=== PATIENT | female | born 1940 | race Caucasian/White ===

== ENCOUNTER 2017-07-18 05:42 | Inpatient (IN) | payer MEDICARE, OTHER ==
[~2017-07-18] VITALS: Ht 160 cm; Wt 83.0 kg
[~2017-07-18 05:42] MED LIST: ACTO150T PO; ADV250INH INH; AGGR1CAP PO; ALBU0.5N INH; ALBU17IN INH; ALBU83IN INH; ASPI81TA7 PO; ASPI81TA85 PO; CALTTAB6 PO; CLOP75TA2 PO; EFFE150C PO; FLON0.054; FLON1SPR; FLUT50SP; LISI-542 PO; LISI5TAB PO; NATU99.0 OU; PRED10TA PO; PRED10TA2 PO; SIMV10TA2 PO; SIMV40TA2 PO; SING10TA32 PO; SING4GRA PO; SPIR1CAP INH; SYMB16INH INH; VENL37TA PO; effexor; effexor XR PO; tiotropium INH
[2017-07-18] MEDS ORDERED: NS 500 ML IV ONE (07:00)
[2017-07-18] MEDS ORDERED: MORPHINE 4 MG/ML 1ML SYRINGE IV ONE (07:00)
[2017-07-18] MEDS ORDERED: dexameTHASONE 20 MG/5 ML VIAL (J1100) IV ONE (07:00)
[2017-07-18] MEDS ORDERED: GASTROGRAFIN SOLUTION 30ML PO ONE (07:15)
[2017-07-18 07:29] LABS: BASO % 0.3 % (0.0-1.0); EOS # 0.2 K/mm3 (0.0-0.50); LARGE UNSTAINED CELL # 0.2 K/mm3 (0.0-0.4); LARGE UNSTAINED CELL % 1.9 % (0.0-4.0); LYMPH # 1.3 K/mm3 (1.5-4.5); MEAN CORPUSCULAR HEMOGLOBIN 31.9 pg (27.0-33.0); MEAN CORPUSCULAR HGB CONC 32.9 g/dl (32.0-36.5); MEAN CORPUSCULAR VOLUME 96.8 fl (80.0-96.0); MONO # 0.9 K/mm3 (0.0-0.8); MONO % 7.1 % (0.0-5.0); NEUTROPHILS # 9.5 K/mm3 (1.8-7.7); NEUTROPHILS % 79.7 % (36.0-66.0); PLATELET COUNT, AUTOMATED 225 k/mm3 (150-450); RED CELL DISTRIBUTION WIDTH 13.1 % (11.5-14.5); WHITE BLOOD COUNT 11.9 K/mm3 (4.0-10.0)
[2017-07-18] MEDS ORDERED: GASTROGRAFIN SOLUTION 30ML (Q9963) PO ONE (07:45)
[2017-07-18] MEDS ORDERED: ONDANSETRON 4MG/2ML VIAL (J2405) IV ONE (07:45)
[2017-07-18 07:55] LABS: ALBUMIN 3.4 GM/DL (3.2-5.2); ALBUMIN/GLOBULIN RATIO 1.06 (1.00-1.93); BILIRUBIN,DIRECT 0.1 MG/DL (0.0-0.2); BILIRUBIN,TOTAL 0.4 MG/DL (0.2-1.0); CREATININE FOR GFR 0.99 MG/DL (0.55-1.02); GLOMERULAR FILTRATION RATE 58.2 (>39); POTASSIUM SERUM 3.9 MEQ/L (3.5-5.1); TOTAL PROTEIN 6.6 GM/DL (6.4-8.2)
[2017-07-18] MEDS: POLYVINYL ALCOHOL OPHTH SOLN 15 ML(LIQUITEARS) OU SCH (09:00)
[2017-07-18] MEDS ORDERED: predniSONE 10 MG TAB PO SCH (09:00)
[2017-07-18] MEDS: DIPYRIDAMOLE/ASA (AGGRENOX) 200MG/25MG CAPCR PO SCH ×2 (09:00→21:24)
[2017-07-18] MEDS: SYMBICORT 160/4.5MCG INHALER 6GM INH SCH ×2 (09:00→19:53)
[2017-07-18] MEDS: FLUTICASONE PROP 0.05% NASAL SPRAY 16 GM (FLONASE) SCH (09:00)
--- NOTE | 2017-07-18 09:54 | REP ---
CT ABDOMEN AND PELVIS WITH IV AND ORAL CONTRAST: HISTORY: Left lower quadrant pain. CT CONTRAST DOSE: 100 mL of Isovue 370 is administered intravenously. Comparison CT chest study is reviewed from May 17, 2007. CT FINDINGS: Digital scot radiograph demonstrates several lumbar vertebroplasty levels and a normal bowel gas pattern. The lung bases show emphysematous changes but are otherwise clear. No pleural effusion is seen. No adrenal lesion is observed on either side. There is a 2.3 cm hypodense lesion in the left lobe of the liver consistent with a hemangioma which is felt to be unchanged from the April 2007 prior study. There is a 1.2 cm low density area in the right lobe also unchanged from 2007. No other focal liver lesion is seen. The gallbladder is unremarkable by CT. No pancreatic abnormality is observed. Normal caliber aorta is seen with vascular calcification. There are three small cysts in the right kidney. In the lower pole left kidney, there is a peripheral 9.3 cm simple cyst. There is mild left-sided hydronephrosis and there is contrast enhancement and thickening of the urothelial [place] of the renal pelvis on the left side. Perinephric stranding and edema are seen. These findings suggest pyelonephritis. No renal or ureteral stone is appreciated. The patient is status post hysterectomy. Small and large intestinal bowel loops are unremarkable in the abdomen and pelvis. No mass or adenopathy is appreciated. IMPRESSION: 1. 9.3 cm cyst lower pole left kidney. 2. Perinephric edema, left-sided hydronephrosis, and contrast enhancement in the urothelial lining of the left renal pelvis and left ureter consistent with pyelonephritis. No stone or mass lesion is identified. 3. Stable cysts and small hemangioma left lobe of the liver. Signed by Altaf Colvin MD 07/18/2017 12:13 P
[2017-07-18] MEDS ORDERED: CIPROFLOXACIN 400 MG in APPROPRIATE DILUENT 1 EA IV ONE (10:00)
[2017-07-18] MEDS ORDERED: MAGN1TAB25 PO (10:32)
[2017-07-18] MEDS ORDERED: METF500T13 PO (10:32)
[2017-07-18] MEDS ORDERED: ATOR40TA75 PO (10:32)
[2017-07-18] MEDS ORDERED: ACETAMINOPHEN TAB 650MG DOSE (2X325MG) PO PRN (11:30)
[2017-07-18] MEDS ORDERED: PERCOCET 5MG/325MG TAB PO PRN (11:30)
[2017-07-18 12:55] VITALS: BP 142/82
[2017-07-18] MEDS: ALBUTEROL SULFATE 2.5 MG/0.5 ML INH NEB SOLN NEB PRN ×3 (13:36→22:11)
[2017-07-18] MEDS: HEPARIN SOD (PORCINE) 5000 UNITS/ML VIAL SC SCH ×2 (14:13→21:22)
[2017-07-18] MEDS: VENLAFAXINE **XR** 75MG CAPSULE PO SCH (14:13)
[2017-07-18] MEDS ORDERED: GLUCOSE 4 GM CHEW TABLET PO PRN (14:30)
[2017-07-18] MEDS ORDERED: DEXTROSE 50% 50 ML SYRINGE IV PRN (14:30)
[2017-07-18] MEDS ORDERED: GLUCAGON FOR INJ 1 MG VIAL (J1610) SC PRN (14:30)
--- NOTE | 2017-07-18 15:03 | HPE ---
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 The patient stated that since 07/14/2017 that she does not feel well. Starting on 07/16/2017 the patient started to have persistent left flank pain that radiated to the left lower abdomen. When the pain started, the patient was just resting. The patient also started to complain about discomfort in the pelvic region. The patient also noted to have increased urgency and subjective fever since 07/16/2017. Denies any other associated symptoms. The patient does have a history of urinary tract infection (UTI) but that was many years ago. The patient has a history of COPD. She has been using 3 to 4 liters of oxygen at home. ALLERGIES: CLARITHROMYCIN, PENICILLIN, PSEUDOEPHEDRINE, CLAVULANIC ACID. PAST MEDICAL HISTORY: 1. CVA in 2012 without any residual. 2. COPD on home oxygen. 3. Type 2 diabetes. 4. Depression. 5. Hypertension. 6. Left ear deafness. PAST SURGICAL HISTORY: Kyphoplasty for compression fracture at L2 and L4. SOCIAL HISTORY: The patient smoked more than 40 years, quit in 2009. No alcohol use. No recreational drug use. The patient is a DO NOT RESUSCITATE, DO NOT INTUBATE. Medical Orders for Life Sustaining Treatment (MOLST) form is updated. REVIEW OF SYSTEMS: GENERAL: Subjective fever since 07/16/2017. No chills. HEENT: No vision changes. No auditory changes. CARDIOVASCULAR: No chest pain. No palpitations. RESPIRATORY: The patient has increased shortness of breath that she feels it is harder to breathe. Oxygen saturation has been maintained at her regular oxygen requirements. No increased cough and no increased sputum production. GASTROINTESTINAL: No nausea. No vomiting. No abdominal pain. No diarrhea. NEUROLOGIC: No numbness or tingling. MUSCULOSKELETAL: No lower extremity swelling. Denies any muscle or joint pain. The patient does have a history of compression fracture at L2 and L4, status post surgical repair. OBJECTIVE: VITAL SIGNS: Temperature is 96.8, pulse is 78, respiratory rate 22, blood pressure 131/62, pulse oximetry is 97% with 3.5 liter nasal cannula. GENERAL: Fatigued. No significant distress. Alert and oriented times three. HEENT: Normocephalic, atraumatic. Extraocular motions are grossly intact. CARDIOVASCULAR: Positive systolic murmur best heard at the sternal border. Positive S1, S2. Regular rate. LUNGS: Diminished breath sounds, though I cannot appreciate any significant wheezes or rhonchi. GASTROINTESTINAL: No abdominal pain. Bowel sounds present. Abdomen is soft. Hernia is palpated. MUSCULOSKELETAL: No lower extremity swelling. No sign of cyanosis. NEUROLOGIC: Sensation to fine touch is grossly intact. Muscle strength if 5/5. LABORATORY DATA: WBC 11.9, hemoglobin 13.4, hematocrit 40.7, platelet count is 225. Sodium is 146, potassium 3.9, chloride 106, carbon dioxide 31, BUN 24, creatinine 0.9, GFR is 58.2, fasting glucose 154, calcium 9, total bilirubin 0.4, direct bilirubin 0.1, AST 17, ALT is 22, alkaline phosphatase is 59, total protein is 6.6, albumin 3.4, amylase 34, lipase 90. Microbiology: Blood cultures pending. Urine culture pending. Methicillin resistant Staphylococcus aureus (MRSA) screen is pending. IMAGING STUDIES: CT of the abdomen and pelvis with IV and oral contrast showed 9.3 cm cyst in the lower pole of the left kidney, perinephritic edema and left sided hydronephrosis. Findings are suggestive of pyelonephritis. No stone or mass lesion identified. There is a small cyst and a small hemangioma of the left lobe of the liver. ASSESSMENT AND PLAN: 1. Pyelonephritis. The patient was admitted to the medical/surgical floor on inpatient status. Empirically, the patient was started on ciprofloxacin. We will follow with urine cultures. Currently, the patient is hemodynamically stable. 2. Chronic obstructive pulmonary disease (COPD). At baseline, the patient is using 3 to 4 liters nasal cannula. We will maintain oxygen saturation between 88 to 92% with nasal cannula. The patient will have nebulizer treatment as needed. Continue with home COPD medications. 3. History of CVA in 2012. No residual. The patient is on Lipitor. 4. Depression. On Effexor. 5. Hypertension. Currently, blood pressure is in the satisfactory range. At home, the patient is not taking any blood pressure medications. 6. Type 2 diabetes. On sliding scale. The patient will be on consistent carbohydrate diet and also 2 gram low salt diet. 7. Deep vein thrombosis (DVT) prophylaxis. The patient is on IV heparin.
[2017-07-18] MEDS: TIOTROPIUM INHALER/CAPSULE (SPIRIVA) INH SCH (15:56)
[2017-07-18] MEDS: HumaLOG INSULIN (NovoLOG) PER UNIT SC SCH ×2 (17:19→21:22)
[2017-07-18] MEDS: ATORVASTATIN 20 MG TAB PO SCH (21:24)
[2017-07-18] MEDS: MONTELUKAST 10 MG TAB PO SCH (21:24)
[2017-07-18] MEDS: MAGNESIUM OXIDE 400 MG TAB (MAG-OX) PO SCH (21:24)
[2017-07-18] MEDS: CIPROFLOXACIN 400 MG in APPROPRIATE DILUENT 1 EA IV SCH (21:24)
[2017-07-18 22:00] VITALS: BP 132/74
[2017-07-19 05:54] LABS: MEAN CORPUSCULAR HEMOGLOBIN 30.9 pg (27.0-33.0); MEAN CORPUSCULAR HGB CONC 32.7 g/dl (32.0-36.5); MEAN CORPUSCULAR VOLUME 94.5 fl (80.0-96.0); WHITE BLOOD COUNT 12.9 K/mm3 (4.0-10.0)
[2017-07-19 06:00] VITALS: BP 139/68
[2017-07-19 06:03] LABS: CALCIUM LEVEL 8.5 MG/DL (8.8-10.2); CREATININE FOR GFR 1.03 MG/DL (0.55-1.02); GLOMERULAR FILTRATION RATE 55.6 (>39); MAGNESIUM LEVEL 2.5 MG/DL (1.8-2.4)
[2017-07-19] MEDS: HEPARIN SOD (PORCINE) 5000 UNITS/ML VIAL SC SCH ×3 (06:10→21:03)
[2017-07-19] MEDS: SYMBICORT 160/4.5MCG INHALER 6GM INH SCH ×2 (07:34→21:32)
[2017-07-19] MEDS: ALBUTEROL SULFATE 2.5 MG/0.5 ML INH NEB SOLN NEB PRN ×4 (07:39→21:41)
[2017-07-19] MEDS: TIOTROPIUM INHALER/CAPSULE (SPIRIVA) INH SCH (07:39)
[2017-07-19] MEDS: FLUTICASONE PROP 0.05% NASAL SPRAY 16 GM (FLONASE) SCH (09:26)
[2017-07-19] MEDS: DIPYRIDAMOLE/ASA (AGGRENOX) 200MG/25MG CAPCR PO SCH ×2 (09:26→21:03)
[2017-07-19] MEDS: predniSONE 10 MG TAB PO SCH (09:27)
[2017-07-19] MEDS: VENLAFAXINE **XR** 75MG CAPSULE PO SCH (09:27)
[2017-07-19] MEDS: POLYVINYL ALCOHOL OPHTH SOLN 15 ML(LIQUITEARS) OU SCH (09:27)
[2017-07-19] MEDS: CIPROFLOXACIN 400 MG in APPROPRIATE DILUENT 1 EA IV SCH ×2 (09:27→21:03)
[2017-07-19] MEDS: HumaLOG INSULIN (NovoLOG) PER UNIT SC SCH ×4 (09:28→20:45)
--- NOTE | 2017-07-19 13:53 | IPN ---
DATE: 07/19/2017 SUBJECTIVE: The patient is sen and examined in the room today. The patient stated that her lower abdominal discomfort showed improvement, her left flank pain also showed some improvement. Her chronic obstructive pulmonary disease (COPD) is in control, no exacerbations. Maintained on her home baseline oxygen requirement. OBJECTIVE: VITAL SIGNS: Temperature is 97.7, pulse is 69, respirations 17, blood pressure 139/68, pulse oximetry 95% on 3 liters nasal cannula. GENERAL: No sign of acute distress. Alert and oriented times three. HEENT: Normocephalic, atraumatic. Extraocular muscles grossly intact. CARDIOVASCULAR: Positive S1, S2. Regular rate. LUNGS: Decreased breath sounds. No significant wheezes or rhonchi. GASTROINTESTINAL: No abdominal pain. Bowel sounds present. Abdomen is soft. Hernia is palpated. MUSCULOSKELETAL: No lower extremity edema. No sign of cyanosis. LABORATORY DATA: WBC is 12.9, hemoglobin 11.8, hematocrit 36.1, platelet count 249. Sodium is 144, potassium 4, chloride is 104, carbon dioxide is 31, BUN 31, creatinine 1.03, GFR is 55.6, fasting glucose is 145, calcium is 8.5, magnesium 2.5. ASSESSMENT AND PLAN: 1. Pyelonephritis. Urine culture is pending. Empirically, the patient is started on ciprofloxacin. Clinically, she has shown improvement. At this moment, the patient is hemodynamically stable. 2. Chronic obstructive pulmonary disease (COPD). At baseline, the patient is using 3 to 4 liters nasal cannula. The patient does not have acute exacerbation. We will maintain oxygen saturation between 88 to 92%. Nebulizers as needed. Continue home COPD medications. The patient is on chronic prednisone. 3. History of CVA in 2012, no residual. On Lipitor. 4. Depression. On Effexor. 5. Hypertension. Blood pressure is in satisfactory range. Even at home the patient has not been taking blood pressure medications. 6. Deep vein thrombosis (DVT) prophylaxis. On heparin.
[2017-07-19 14:00] VITALS: BP 95/51
[2017-07-19] MEDS: MONTELUKAST 10 MG TAB PO SCH (21:03)
[2017-07-19] MEDS: MAGNESIUM OXIDE 400 MG TAB (MAG-OX) PO SCH (21:03)
[2017-07-19] MEDS: ATORVASTATIN 20 MG TAB PO SCH (21:03)
[2017-07-19 22:00] VITALS: BP 137/61
[2017-07-20] MEDS: HEPARIN SOD (PORCINE) 5000 UNITS/ML VIAL SC SCH (05:32)
[2017-07-20 06:00] VITALS: BP 123/56
[2017-07-20 06:00] LABS: MEAN CORPUSCULAR HEMOGLOBIN 31.4 pg (27.0-33.0); MEAN CORPUSCULAR HGB CONC 32.8 g/dl (32.0-36.5); MEAN CORPUSCULAR VOLUME 95.7 fl (80.0-96.0); RED CELL DISTRIBUTION WIDTH 12.8 % (11.5-14.5); WHITE BLOOD COUNT 9.6 K/mm3 (4.0-10.0)
[2017-07-20 06:20] LABS: CALCIUM LEVEL 8.3 MG/DL (8.8-10.2); CREATININE FOR GFR 1.04 MG/DL (0.55-1.02)
[2017-07-20] MEDS: SYMBICORT 160/4.5MCG INHALER 6GM INH SCH (07:16)
[2017-07-20] MEDS: TIOTROPIUM INHALER/CAPSULE (SPIRIVA) INH SCH (07:16)
[2017-07-20] MEDS: ALBUTEROL SULFATE 2.5 MG/0.5 ML INH NEB SOLN NEB PRN (07:17)
[2017-07-20] MEDS ORDERED: CIPR-249 PO (08:46)
[2017-07-20] MEDS: VENLAFAXINE **XR** 75MG CAPSULE PO SCH (09:36)
[2017-07-20] MEDS: DIPYRIDAMOLE/ASA (AGGRENOX) 200MG/25MG CAPCR PO SCH (09:36)
[2017-07-20] MEDS: predniSONE 10 MG TAB PO SCH (09:36)
[2017-07-20] MEDS: FLUTICASONE PROP 0.05% NASAL SPRAY 16 GM (FLONASE) SCH (09:37)
[2017-07-20] MEDS: POLYVINYL ALCOHOL OPHTH SOLN 15 ML(LIQUITEARS) OU SCH (09:37)
[2017-07-20] MEDS: CIPROFLOXACIN 400 MG in APPROPRIATE DILUENT 1 EA IV SCH (09:38)
[2017-07-20] MEDS: HumaLOG INSULIN (NovoLOG) PER UNIT SC SCH ×2 (09:52→12:00)
--- NOTE | 2017-07-20 15:14 | DSES ---
DATE OF ADMISSION: 07/18/2017 DATE OF DISCHARGE: 07/20/2017 CONSULTANTS: None. PROCEDURES: None. DISCHARGE DIAGNOSES: 1. Pyelonephritis. 2. Chronic obstructive pulmonary disease (COPD) on home oxygen. 3. History of CVA in 2012 without residual. 4. Depression. 5. Hypertension. HOSPITALIZATION COURSE: The patient is a 77-year-old female who presented to [facility] on 07/18/2017 with significant left flank pain and bilateral lower abdominal discomfort. Imaging studies were preformed and culture was obtained and the patient was found to have pyelonephritis. The was started on empiric antibiotics while waiting the culture results. With antibiotic treatment, the patient's left flank pain and bilateral lower abdominal pain continued to improve and later the culture came back positive for Escherichia (E) coli , which is sensitive to ciprofloxacin and on 07/20/2017 the patient has had almost complete resolution of the symptoms and the patient was determined medically stable for discharge with recommendations to finish a course of antibiotics for her pyelonephritis. The patient was recommended to followup with Dr. Joyce in 1 to 2 weeks. VITAL SIGNS: At the time of discharge, temperature is 96.2, pulse 52, respirations 17, blood pressure is 123/56, pulse oximetry is 93% with 3 liters nasal cannula. LABORATORY DATA: WBC is 9.6, hemoglobin 11.7, hematocrit 35.8, platelet count is 252. Sodium is 142, potassium 4.0, chloride is 104, carbon dioxide 37, BUN is 27, creatinine is 1.04, GFR is 55, fasting glucose 122, calcium is 8.3. Microbiology: Blood culture is negative after 48 hours times two sets. Urine culture positive for E coli. Methicillin resistant Staphylococcus aureus (MRSA) screening is negative. IMAGING STUDIES: CT of the abdomen with IV and oral contrast showed 9.3 cm simple cyst in the left kidney, lower pole. Perinephric edema, left sided hydronephrosis, and contrast enhancement of the urothelial lining of the left renal pelvis and the left ureter consistent with pyelonephritis. No stone or mass lesion is identified. Stable cyst and small hemangioma of the left lobe of the liver. DISCHARGE MEDICATIONS: - ciprofloxacin 500 mg by mouth twice a day for 5 more days - Actonel 150 mg by mouth monthly - albuterol 2.5 mg inhalation every 4 hours as needed for shortness of breath - atorvastatin 40 mg by mouth at night - Symbicort 116/4.5 two puff inhalation twice a day - Aggrenox one tablet by mouth twice a day - Flonase two sprays nasally daily - magnesium oxide 400 mg by mouth at night - metformin 500 mg by mouth daily - Singulair 10 mg by mouth at night - prednisone 10 mg by mouth daily - Spiriva 18 mcg inhalation daily - Effexor 150 mg by mouth daily DISCHARGE INSTRUCTIONS: Discontinue line. Discharge home. Activity as tolerated. Consistent carbohydrate diet as tolerated. The patient should followup with primary care provider, Dr. Joyce, in 1 to 2 weeks. The patient is to continue to finish the course of ciprofloxacin for pyelonephritis. Discharge time: Greater than 30 minutes. Discharge condition: Stable.
== END 2017-07-20 12:40 | disposition home or self-care (01) | DRG 690 ==
LOC: M ED 05:42 → M ED INP 11:24 → M MSPAV 13:21
PROVIDERS: ADMIT Internal Medicine; ATTEND Internal Medicine
DX: N12 Tubulo-interstitial nephritis, not specified as acute or chronic (principal); J44.9 Chronic obstructive pulmonary disease, unspecified; F32.9 Major depressive disorder, single episode, unspecified; Z66 Do not resuscitate; H91.92 Unspecified hearing loss, left ear; E11.9 Type 2 diabetes mellitus without complications; I10 Essential (primary) hypertension; B96.20 Unspecified Escherichia coli [E. coli] as the cause of diseases classified elsewhere; Z79.84 Long term (current) use of oral hypoglycemic drugs; Z79.52 Long term (current) use of systemic steroids; Z79.899 Other long term (current) drug therapy; Z88.0 Allergy status to penicillin; Z88.1 Allergy status to other antibiotic agents; Z88.8 Allergy status to other drugs, medicaments and biological substances; Z99.81 Dependence on supplemental oxygen; Z86.73 Personal history of transient ischemic attack (TIA), and cerebral infarction without residual deficits; Z87.891 Personal history of nicotine dependence

== ENCOUNTER 2017-08-22 13:56 | Inpatient (IN) | payer MEDICARE, OTHER ==
[~2017-08-22] VITALS: Ht 160 cm; Wt 84.2 kg
[~2017-08-22 13:56] MED LIST changes: +ATOR40TA75 PO; +CIPR-249 PO; +MAGN1TAB25 PO; +METF500T13 PO
[2017-08-22] MEDS ORDERED: methylPREDNISolone INJ 125 MG/2 ML VIAL (J2930) IV ONE (14:30)
[2017-08-22] MEDS ORDERED: IPRATROPIUM 0.5MG/ALBUTEROL 2.5MG INH SOL UD 3ML (DUONEB)(J7620) NEB PRN (14:30)
[2017-08-22 14:43] LABS: BASO # 0.1 10^3/uL (0.0-0.2); BASO % 0.2 % (0.0-1.0); EOS % 0.2 % (0.0-3.0); IMMATURE GRANULOCYTE % 0.5 % (0-0); LYMPH # 0.7 10^3/uL (1.5-4.5); LYMPH % 2.9 % (24.0-44.0); MEAN CORPUSCULAR HEMOGLOBIN 30.8 pg (27.0-33.0); MEAN CORPUSCULAR HGB CONC 31.5 g/dl (32.0-36.5); MEAN CORPUSCULAR VOLUME 97.6 fl (80.0-96.0); MONO % 7.2 % (0.0-5.0); NEUTROPHILS # 21.5 10^3/uL (1.8-7.7); PLATELET COUNT, AUTOMATED 256 10^3/uL (150-450); RED CELL DISTRIBUTION WIDTH 13.2 % (11.5-14.5); WHITE BLOOD COUNT 24.1 10^3/uL (4.0-10.0)
[2017-08-22] MEDS ORDERED: ALBUTEROL SULFATE 2.5 MG/0.5 ML INH NEB SOLN As Ordered ONE (14:44)
[2017-08-22] MEDS: ALBUTEROL SULFATE 2.5 MG/0.5 ML INH NEB SOLN INH SCH ×3 (14:47→15:15)
[2017-08-22 14:54] LABS: ABG BASE EXCESS 3.7 (-2.0-2.0); ABG HCO3 29.3 MEQ/L (22.0-26.0); ABG PARTIAL PRESSURE CO2 48.1 mmHg (35.0-45.0); ABG PARTIAL PRESSURE O2 110.9 mmHg (75.0-100.0); ABG STANDARD HCO3 27.8 MEQ/L (22.0-26.0); ABG TOTAL CO2 30.7 MEQ/L (23.0-31.0); ABG pH (ARTERIAL) 7.402 UNITS (7.350-7.450)
[2017-08-22 15:18] LABS: ADD MORPHOLOGY? NO; ANION GAP 9 MEQ/L (8-16); BLOOD UREA NITROGEN 25 MG/DL (7-18); CALCIUM LEVEL 8.8 MG/DL (8.8-10.2); CARBON DIOXIDE LEVEL 29 MEQ/L (21-32); CHLORIDE LEVEL 100 MEQ/L (98-107); CREATININE FOR GFR 0.95 MG/DL (0.55-1.02); GLOMERULAR FILTRATION RATE > 60.0 (>39); GLUCOSE, FASTING 229 MG/DL (83-110); MONO # 1.8 10^3/uL (0.0-0.8); SODIUM LEVEL 138 MEQ/L (136-145)
[2017-08-22 15:25] LABS: POTASSIUM SERUM 4.3 MEQ/L (3.5-5.1)
--- NOTE | 2017-08-22 16:03 | REP ---
Portable chest, 02:41 p.m., single AP view, patient sitting: Comparisons are 01/14/2013 and 01/16/2015. The patients breast superimposes the lower lung zones artifactually increasing radiodensity. This is similar to prior studies. No focal infiltrates or effusions are identified. Cardiac size is upper normal. There is an old left eighth rib fracture. Impression: No acute cardiopulmonary findings. Signed by Vernon Bridges MD 08/22/2017 03:55 P
[2017-08-22] MEDS ORDERED: NS 2,450 ML in APPROPRIATE DILUENT 1 EA IV ONE (16:30)
[2017-08-22] MEDS ORDERED: LevoFLOXacin IV 750 MG in APPROPRIATE DILUENT 1 EA IV ONE (16:30)
[2017-08-22] MEDS ORDERED: REFR0.5D8 OU (17:01)
[2017-08-22 17:24] LABS: INR 1.01
[2017-08-22 17:28] LABS: ALBUMIN 3.8 GM/DL (3.2-5.2); ALBUMIN/GLOBULIN RATIO 1.31 (1.00-1.93); BILIRUBIN,DIRECT 0.2 MG/DL (0.0-0.2); BILIRUBIN,TOTAL 0.6 MG/DL (0.2-1.0); TOTAL PROTEIN 6.7 GM/DL (6.4-8.2)
[2017-08-22] MEDS ORDERED: ALBUTEROL 90 MCG/ACT 8GM HFA INHALER INH PRN (17:30)
[2017-08-22] MEDS ORDERED: DEXTROSE 50% 50 ML SYRINGE IV PRN (17:30)
[2017-08-22] MEDS ORDERED: GLUCAGON FOR INJ 1 MG VIAL (J1610) SC PRN (17:30)
[2017-08-22] MEDS ORDERED: GLUCOSE 4 GM CHEW TABLET PO PRN (17:30)
[2017-08-22] MEDS: HumaLOG INSULIN (NovoLOG) PER UNIT SC SCH ×2 (17:30→21:00)
[2017-08-22 21:30] VITALS: BP 142/86
--- NOTE | 2017-08-22 21:42 | HPE ---
DATE OF ADMISSION: 08/22/2017 PRIMARY CARE PHYSICIAN: Dr. Bryce Joyce CARBONATION TESTER: Dr. Davidson CHIEF COMPLAINT: Shortness of breath. HISTORY OF PRESENT ILLNESS: The patient is a 77-year-old female with fairly advanced chronic obstructive pulmonary disease (COPD), on chronic 3.5 liters of oxygen and 10 mg of prednisone daily who has frequent admissions for decompensated COPD, presents for shortness of breath, progressively worsening cough without changes, be in quality of quantity. She has positive sick contacts, her grand-daughter who is in college and recently has been sick with a upper respiratory infection (URI) and since then had it at home for the last several days. Patient has noted worsening in her own respiratory status, not improved by her breathing treatments at home, which prompted her to present to the emergency room. At the present time she tells me after using steroids and nebulizer treatment she is feeling much better, however, not back to normal. She denies chest pain, lightheadedness, dizziness, nausea, vomiting, fevers, or chills. PAST MEDICAL HISTORY: 1. Cerebrovascular accident (CVA) in 2012. 2. Fairly advanced COPD. 3. Type 2 diabetes. 4. Depression. 5. Hypertension. 6. Osteoporosis. ALLERGIES: PENICILLIN, PSEUDOEPHEDRINE, IPRATROPIUM, difficulty breathing, chocolate, CLAVULANIC ACID, CLARITHROMYCIN. SURGICAL HISTORY: Kyphoplasty for compression fracture, L2-L4. SOCIAL HISTORY: She lives with her and two grandchildren, a grandson and grand-daughter, who are adults. She has a previous 40 pack-year history but has not smokes since 2009. She denies any alcohol. She is a DO NOT RESUSCITATE, DO NOT INTUBATE. Will bring the paperwork in tomorrow. FAMILY HISTORY: Noncontributory. REVIEW OF SYSTEMS: Negative other than in history of present illness (HPI). HOME MEDICATIONS: - metformin 500 mg daily - prednisone 10 mg daily - Actonel 150 mg every month - Refresh tears one drop both eyes as needed dry eyes - albuterol sulfate 2.5 mg nebulized every 4 hours as needed for shortness of breath - Ventolin HFA two puffs every 4 hours as needed for shortness of breath - atorvastatin 40 mg at bedtime - Symbicort 160/4.5 two puffs inhaled twice a day - Aggrenox 25/200 one capsule by mouth twice a day - Flonase 50 mcg two sprays nasally - Singulair 10 mg at bedtime - Spiriva HandiHaler 18 mcg inhaled daily - venlafaxine extended release 150 mg daily OBJECTIVE: VITAL SIGNS: Temperature 98.4, pulse 103, respiratory rate 24, blood pressure (BP) 143/69, oxygen saturation 100% on 3.5 liters. GENERAL: She is a morbidly obese, elderly female, lying in a stretcher at a 30-degree angle. She does not appear to be in any acute distress. She does have some crutches. She has mild respiratory distress. HEENT: Cranial nerves II-XII are grossly intact. She has pursed lips. She has moist mucous membranes. No elevation in central venous pressure (CVP). CARDIOVASCULAR: S1, S2, regular rate and rhythm. She does not appear tachycardic on my exam. RESPIRATORY: Diminished breath sounds throughout. No appreciated expiratory wheezes. ABDOMEN: Obese. EXTREMITIES: No clubbing, cyanosis, or edema. LABORATORY STUDIES: WBC 24.1, hemoglobin 12.8, platelet count 256. Chemistry panel: Sodium 138, potassium 4.3, chloride 100, bicarbonate 29, BUN 25, creatinine 0.9, lactic acid 4.1. Fasting glucose of 229. One set of cardiac enzymes is negative. Pro-BMP is within normal limits as is TSH. Her arterial blood gas shows a pH of 7.4, pCO2 of 48.1, and pO2 of 110.9. INR 1.0. Blood cultures were drawn and are pending. IMAGING: She had a chest x-ray completed that revealed no acute cardiopulmonary findings. ASSESSMENT AND PLAN: This is a 77-year-old female presenting with shortness of breath. 1. Shortness of breath, possibly related to decompensated chronic obstructive pulmonary disease (COPD) versus bronchitis versus viral upper respiratory infection (URI). Fro the time being we will place her on intravenous (IV) Solu-Medrol. Continue with the nebulizer treatments. She had been started on levothyroxine in the emergency room as she was tachycardic and had a significant leukocytosis. We will continue this for now. Will check sputum cultures; however, if cultures remain negative, could likely discontinue antibiotics or if polymerase chain reaction (PCR) returns positive, could likely discontinue antibacterials. My suspicion for bacterial infection is much lower. At the present time she is saturating 100% on her home oxygen. I suspect that she is chronically receiving more oxygen than she needs. Would recommend titrating down for oxygen saturations of 88-92 and include taper prednisone back to her home standing dose of 10 mg with close followup with her business services tech. 2. Type 2 diabetes. Will hold her metformin and place her on sliding-scale insulin. 3. Cerebrovascular accident (CVA). Continue with Aggrenox and Lipitor. 4. Mood disorder. Continue with Effexor. 5. Seasonal allergies. Continue with Singulair. 6. Deep vein thrombosis (DVT) prophylaxis. Heparin. DISPOSITION: The patient is admitted to the medical/surgical service to Dr. Lancaster's service, who will continue following the patient at 7 a.m. She is a DO NOT RESUSCITATE/DO NOT INTUBATE, and she will bring the paperwork in from home.
[2017-08-22] MEDS: MONTELUKAST 10 MG TAB PO SCH (22:53)
[2017-08-22] MEDS: methylPREDNISolone INJ 125 MG/2 ML VIAL (J2930) IV SCH (22:53)
[2017-08-22] MEDS: DIPYRIDAMOLE/ASA (AGGRENOX) 200MG/25MG CAPCR PO SCH (22:53)
[2017-08-22] MEDS: ATORVASTATIN 20 MG TAB PO SCH (22:53)
[2017-08-22] MEDS: HEPARIN SOD (PORCINE) 5000 UNITS/ML VIAL SC SCH (22:54)
[2017-08-22] MEDS: ALBUTEROL SULFATE 2.5 MG/0.5 ML INH NEB SOLN INH PRN (23:04)
[2017-08-22] MEDS: SYMBICORT 160/4.5MCG INHALER 6GM INH SCH (23:06)
[2017-08-23] MEDS: methylPREDNISolone INJ 125 MG/2 ML VIAL (J2930) IV SCH ×3 (03:31→14:48)
[2017-08-23 06:00] VITALS: BP 109/57
[2017-08-23] MEDS: HEPARIN SOD (PORCINE) 5000 UNITS/ML VIAL SC SCH ×3 (06:13→21:54)
--- NOTE | 2017-08-23 06:23 | ECGEPIP ---
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
[2017-08-23] MEDS: SYMBICORT 160/4.5MCG INHALER 6GM INH SCH ×2 (07:47→20:22)
[2017-08-23] MEDS: TIOTROPIUM INHALER/CAPSULE (SPIRIVA) INH SCH (07:49)
[2017-08-23] MEDS: FLUTICASONE PROP 0.05% NASAL SPRAY 16 GM (FLONASE) SCH (08:18)
[2017-08-23] MEDS: VENLAFAXINE **XR** 75MG CAPSULE PO SCH (08:19)
[2017-08-23] MEDS: DIPYRIDAMOLE/ASA (AGGRENOX) 200MG/25MG CAPCR PO SCH ×2 (08:19→21:54)
[2017-08-23] MEDS: HumaLOG INSULIN (NovoLOG) PER UNIT SC SCH ×4 (08:20→21:55)
[2017-08-23 08:43] LABS: MEAN CORPUSCULAR HEMOGLOBIN 30.6 pg (27.0-33.0); MEAN CORPUSCULAR HGB CONC 31.3 g/dl (32.0-36.5); MEAN CORPUSCULAR VOLUME 97.9 fl (80.0-96.0); RED CELL DISTRIBUTION WIDTH 13.2 % (11.5-14.5); WHITE BLOOD COUNT 13.5 10^3/uL (4.0-10.0)
[2017-08-23 08:48] LABS: ANION GAP 7 MEQ/L (8-16); BLOOD UREA NITROGEN 20 MG/DL (7-18); CALCIUM LEVEL 8.2 MG/DL (8.8-10.2); CARBON DIOXIDE LEVEL 29 MEQ/L (21-32); CHLORIDE LEVEL 105 MEQ/L (98-107); CREATININE FOR GFR 0.79 MG/DL (0.55-1.02); GLOMERULAR FILTRATION RATE > 60.0 (>39); GLUCOSE, FASTING 187 MG/DL (83-110); POTASSIUM SERUM 4.3 MEQ/L (3.5-5.1); SODIUM LEVEL 141 MEQ/L (136-145)
[2017-08-23] MEDS: ALBUTEROL SULFATE 2.5 MG/0.5 ML INH NEB SOLN INH PRN ×2 (10:33→18:15)
[2017-08-23] MEDS ORDERED: POLYVINYL ALCOHOL OPHTH SOLN 15 ML(LIQUITEARS) OU PRN (13:45)
[2017-08-23 14:00] VITALS: BP 117/57
--- NOTE | 2017-08-23 16:20 | IPNPDOC ---
Subjective Date Seen The patient was seen on 08/23/17. Subjective Chief Complaint/HPI Patient seen and examined at the bedside. States that her respiratory status is significantly improved compared to yesterday. Objective Physical Examination General Exam: Positive: Alert, Cooperative, No Acute Distress ENT Exam: Positive: Atraumatic, Mucous membr. moist/pink Neck Exam: Negative: JVD Chest Exam: Positive: Diminished, Negative: Rales Heart Exam: Positive: Rate Normal, Normal S1, Normal S2 Abdomen Exam: Positive: Soft, Negative: Tenderness Extremity Exam: Negative: Tenderness, Swelling Psych Exam: Positive: Oriented x 3 Assessment /Plan Plan/VTE VTE Prophylaxis Ordered?: Yes Plan Acute on Chronic Hypoxic Respiratory Failure 2/2 COPD CXR with no acute findings Blood, Sputum cultures pending Respiratory Panel pending Cont Levaquin IV Solumedrol down-titrated Cont Neb and Inhaler therapy as ordered The patient states that her respiratory status has improved Type 2 diabetes Continue on sliding-scale insulin. Cerebrovascular accident (CVA) Continue with Aggrenox and Lipitor. Mood disorder Continue with Effexor. Seasonal allergies Continue with Singulair. Deep vein thrombosis (DVT) prophylaxis Heparin SC VS, I&O, 24H, Fishbone Vital Signs/I&O Vital Signs Date Time Temp Pulse Resp B/P (MAP) Pulse Ox O2 Delivery O2 Flow Rate FiO2 08/23/17 14:00 97.5 84 18 117/57 (77) 97 Nasal Cannula 2.0 I&O- Last 24 Hours up to 6 AM 08/24/17 05:59 Intake Total 360 ml Output Total 500 ml Balance -140 ml Laboratory Data 24H LABS Laboratory Tests 2 08/22/17 16:31: Prothrombin Time 13.4, Prothromb Time International Ratio 1.01, Activated Partial Thromboplast Time 28.2, Aspartate Amino Transf (AST/SGOT) 13L, Alanine Aminotransferase (ALT/SGPT) 26, Alkaline Phosphatase 59, Total Bilirubin 0.6, Direct Bilirubin 0.2, C-Reactive Protein, Quantitative 1.22H, Total Protein 6.7 , Albumin 3.8, Albumin/Globulin Ratio 1.31, Amylase Level 45 08/22/17 18:12: Urine Appearance HAZY, Urine Color YELLOW, Urine pH 7.0, Urine Specific [place] 1.008, Urine Protein NEGATIVE, Urine Glucose (UA) 2+H, Urine Ketones NEGATIVE, Urine Urobilinogen 0.2, Urine Bilirubin NEGATIVE, Urine Leukocyte Esterase TRACEH, Urine Blood 2+H, Urine Nitrite POSITIVE, Urine WBC (Auto) 3, Urine RBC ( Auto) 2, Urine Hyaline Casts (Auto) 0, Urine Bacteria (Auto) 3+H, Urine Squamous Epithelial Cells 0, Urine Mucus (Auto) SMALL, Urine Sperm (Auto) 08/22/17 19:50: Lactic Acid Followup at 4 Hours 2.7*H, Troponin I 0.02 08/22/17 22:39: Bedside Glucose (Misc Panel) 198H 08/23/17 06:35: Anion Gap 7L, Glomerular Filtration Rate > 60.0, Blood Urea Nitrogen 20H, Creatinine 0.79, Sodium Level 141, Potassium Level 4.3, Chloride Level 105, Carbon Dioxide Level 29, Calcium Level 8.2L 08/23/17 06:36: Lactic Acid Level 1.5 08/23/17 07:20: Bedside Glucose (Misc Panel) 166H 08/23/17 12:25: Bedside Glucose (Misc Panel) 219H CBC/BMP Laboratory Tests 08/23/17 06:35 Red Blood Count 3.82 L, Mean Corpuscular Volume 97.9 H, Mean Corpuscular Hemoglobin 30.6, Mean Corpuscular Hemoglobin Concent 31.3 L, Red Cell Distribution Width 13.2, Calcium Level 8.2 L Microbiology Microbiology 08/22/17 Blood Culture, Received Pending 08/22/17 Blood Culture - Preliminary, Resulted No growth after 24 hours . All specim... 08/22/17 Urine Culture, Received Pending LAITH ONEAL MD Aug 23, 2017 16:20
[2017-08-23] MEDS: LevoFLOXacin IV 750 MG in APPROPRIATE DILUENT 1 EA IV SCH (19:20)
[2017-08-23 20:23] VITALS: O2SAT 95
[2017-08-23] MEDS: MONTELUKAST 10 MG TAB PO SCH (21:54)
[2017-08-23] MEDS: ATORVASTATIN 20 MG TAB PO SCH (21:54)
[2017-08-23 22:00] VITALS: BP 120/62
[2017-08-24] MEDS ORDERED: methylPREDNISolone INJ 40 MG/1 ML VIAL (J2920) IV SCH (03:00)
[2017-08-24 06:00] VITALS: BP 116/78
[2017-08-24] MEDS: HEPARIN SOD (PORCINE) 5000 UNITS/ML VIAL SC SCH ×3 (06:00→22:26)
[2017-08-24] MEDS: TIOTROPIUM INHALER/CAPSULE (SPIRIVA) INH SCH (07:18)
[2017-08-24] MEDS: SYMBICORT 160/4.5MCG INHALER 6GM INH SCH ×2 (07:18→18:33)
[2017-08-24 07:27] LABS: MEAN CORPUSCULAR HGB CONC 31.8 g/dl (32.0-36.5); MEAN CORPUSCULAR VOLUME 97.6 fl (80.0-96.0); RED CELL DISTRIBUTION WIDTH 13.2 % (11.5-14.5); WHITE BLOOD COUNT 28.1 10^3/uL (4.0-10.0)
[2017-08-24 07:36] LABS: ANION GAP 3 MEQ/L (8-16); BLOOD UREA NITROGEN 35 MG/DL (7-18); CARBON DIOXIDE LEVEL 34 MEQ/L (21-32); CHLORIDE LEVEL 106 MEQ/L (98-107); GLOMERULAR FILTRATION RATE > 60.0 (>39); GLUCOSE, FASTING 172 MG/DL (83-110); SODIUM LEVEL 143 MEQ/L (136-145)
[2017-08-24] MEDS: DIPYRIDAMOLE/ASA (AGGRENOX) 200MG/25MG CAPCR PO SCH ×2 (08:08→22:26)
[2017-08-24] MEDS: FLUTICASONE PROP 0.05% NASAL SPRAY 16 GM (FLONASE) SCH (08:08)
[2017-08-24] MEDS: predniSONE 20 MG TAB PO SCH (08:08)
[2017-08-24] MEDS: VENLAFAXINE **XR** 75MG CAPSULE PO SCH (08:09)
[2017-08-24] MEDS: HumaLOG INSULIN (NovoLOG) PER UNIT SC SCH ×4 (08:09→21:00)
[2017-08-24] MEDS: ALBUTEROL SULFATE 2.5 MG/0.5 ML INH NEB SOLN INH PRN ×2 (09:54→22:07)
--- NOTE | 2017-08-24 13:00 | IPNPDOC ---
Subjective Date Seen The patient was seen on 08/24/17. Subjective Chief Complaint/HPI Patient seen and examined at the bedside. States that her respiratory status has significantly improved. States that she has been ambulating around the room without any acute difficulties. Overnight events. Objective Physical Examination General Exam: Positive: Alert, Cooperative, No Acute Distress ENT Exam: Positive: Atraumatic, Mucous membr. moist/pink Neck Exam: Negative: JVD Chest Exam: Positive: Diminished, Negative: Rales Heart Exam: Positive: Rate Normal, Normal S1, Normal S2 Abdomen Exam: Positive: Soft, Negative: Tenderness Extremity Exam: Negative: Tenderness, Swelling Psych Exam: Positive: Oriented x 3 Assessment /Plan Plan/VTE VTE Prophylaxis Ordered?: Yes Plan Acute on Chronic Hypoxic Respiratory Failure 2/2 COPD CXR with no acute findings Blood cultures unrevealing thus far Respiratory Panel pending Cont Levaquin IV Solumedrol down-titrated to PO Prednisone Cont Neb and Inhaler therapy as ordered The patient states that her respiratory status has improved Leukocytosis possibly 2/2 Steroid Use, underlying Infection The patient's WBC did increase from 13K to 28K this AM She has remained afebrile, and her cultures remain negative Clinical condition also appears improved Cont Levaquin We will follow up with CBC in the AM Type 2 diabetes Continue on sliding-scale insulin. Cerebrovascular accident (CVA) Continue with Aggrenox and Lipitor. Mood disorder Continue with Effexor. Seasonal allergies Continue with Singulair. Deep vein thrombosis (DVT) prophylaxis Heparin SC Dispo--Anticipate D/C in 24-48hrs pending clinical improvement. VS, I&O, 24H, Fishbone Vital Signs/I&O Vital Signs Date Time Temp Pulse Resp B/P (MAP) Pulse Ox O2 Delivery O2 Flow Rate FiO2 08/24/17 08:55 Nasal Cannula 3.0 08/24/17 06:00 97.0 93 16 116/78 (91) 91 Laboratory Data 24H LABS Laboratory Tests 2 08/23/17 16:39: Bedside Glucose (Misc Panel) 259H 08/23/17 20:00: Bedside Glucose (Misc Panel) 274H 08/24/17 06:47: Anion Gap 3L, Glomerular Filtration Rate > 60.0, Blood Urea Nitrogen 35#H, Creatinine 0.90, Sodium Level 143, Potassium Level 4.0, Chloride Level 106, Carbon Dioxide Level 34H, Calcium Level 8.0L, C-Reactive Protein, Quantitative 1.53H 08/24/17 12:02: Bedside Glucose (Misc Panel) 204H CBC/BMP Laboratory Tests 08/24/17 06:47 Red Blood Count 3.74 L, Mean Corpuscular Volume 97.6 H, Mean Corpuscular Hemoglobin 31.0, Mean Corpuscular Hemoglobin Concent 31.8 L, Red Cell Distribution Width 13.2, Calcium Level 8.0 L Microbiology Microbiology 08/22/17 Blood Culture - Preliminary, Resulted No growth after 24 hours . All specim... 08/22/17 Blood Culture - Preliminary, Resulted No growth after 24 hours . All specim... 08/22/17 Urine Culture - Final, Complete Escherichia Coli LAITH ONEAL MD Aug 24, 2017 13:00
[2017-08-24 14:00] VITALS: BP 129/60
[2017-08-24] MEDS: LevoFLOXacin IV 750 MG in APPROPRIATE DILUENT 1 EA IV SCH (18:12)
[2017-08-24 22:00] VITALS: BP 165/79
[2017-08-24] MEDS: ATORVASTATIN 20 MG TAB PO SCH (22:26)
[2017-08-24] MEDS: MONTELUKAST 10 MG TAB PO SCH (22:26)
[2017-08-25] MEDS: HEPARIN SOD (PORCINE) 5000 UNITS/ML VIAL SC SCH ×2 (05:34→14:00)
[2017-08-25 06:00] VITALS: BP 151/66
[2017-08-25] MEDS: ALBUTEROL SULFATE 2.5 MG/0.5 ML INH NEB SOLN INH PRN (06:28)
[2017-08-25 07:11] LABS: MEAN CORPUSCULAR HEMOGLOBIN 30.5 pg (27.0-33.0); MEAN CORPUSCULAR HGB CONC 31.1 g/dl (32.0-36.5); MEAN CORPUSCULAR VOLUME 98.2 fl (80.0-96.0); RED CELL DISTRIBUTION WIDTH 13.2 % (11.5-14.5); WHITE BLOOD COUNT 14.3 10^3/uL (4.0-10.0)
[2017-08-25 07:30] LABS: ANION GAP 3 MEQ/L (8-16); BLOOD UREA NITROGEN 35 MG/DL (7-18); CALCIUM LEVEL 7.9 MG/DL (8.8-10.2); CARBON DIOXIDE LEVEL 35 MEQ/L (21-32); CHLORIDE LEVEL 106 MEQ/L (98-107); GLOMERULAR FILTRATION RATE > 60.0 (>39); GLUCOSE, FASTING 112 MG/DL (83-110); POTASSIUM SERUM 3.8 MEQ/L (3.5-5.1); SODIUM LEVEL 144 MEQ/L (136-145)
[2017-08-25] MEDS: HumaLOG INSULIN (NovoLOG) PER UNIT SC SCH ×2 (08:54→12:00)
[2017-08-25] MEDS: DIPYRIDAMOLE/ASA (AGGRENOX) 200MG/25MG CAPCR PO SCH (08:54)
[2017-08-25] MEDS: predniSONE 20 MG TAB PO SCH (08:55)
[2017-08-25] MEDS: FLUTICASONE PROP 0.05% NASAL SPRAY 16 GM (FLONASE) SCH (08:55)
[2017-08-25] MEDS: VENLAFAXINE **XR** 75MG CAPSULE PO SCH (08:55)
[2017-08-25] MEDS: TIOTROPIUM INHALER/CAPSULE (SPIRIVA) INH SCH (09:09)
[2017-08-25] MEDS: SYMBICORT 160/4.5MCG INHALER 6GM INH SCH (09:09)
[2017-08-25] MEDS ORDERED: LEVA1TAB2 PO (11:03)
[2017-08-25] MEDS ORDERED: PRED10TA2 PO (11:03)
--- NOTE | 2017-08-25 15:05 | DS.PDOC ---
Discharge Summary General Date of Admission Aug 22, 2017 at 17:32 Date of Discharge 08/25/17 Discharge Summary PROCEDURES PERFORMED DURING STAY: None. ADMITTING/DISCHARGE DIAGNOSES: 1. . COPD exacerbation 2. . Type 2 diabetes 3. . Hypertension 4. . Leukocytosis 2/2 steroids COMPLICATIONS/CHIEF COMPLAINT: SOB. HISTORY OF PRESENT ILLNESS: . 77-year-old female with past medical history of hypertension, type 2 diabetes, osteoporosis, depression, advanced COPD, and CVA presented to the ER with a chief complaint of progressively worsening cough without sputum production. The patient states that she tried multiple breathing treatments at home, but this did not improve. She denied any acute complaints of fevers, chills, chest pain, light of this, dizziness, nausea, vomiting, or chills. She presents to the ER for further evaluation. In the ER, a chest x-ray revealed no acute findings. However, given the patient' s tachycardia, leukocytosis, and shortness of breath the patient was admitted to the hospitalist service. During hospitalization, the patient was treated with IV antibiotics, and IV steroids. The patient also received nebulizer treatments [id number]. The patient's respiratory status significantly improved with the aforementioned treatments. The patient's blood cultures here have remained negative. She has been transitioned to a by mouth antibiotic, and a tapering dose of steroids. At this time, the patient states that she is feeling much better and is eager to return home. She has been ambulating in her room and in the hallways without any significant respiratory limitations. I've advised the patient to follow-up with her primary care physician within 7 days. In addition, the patient has been consulted to return to the ER for any acute emergencies. DISCHARGE MEDICATIONS: Please see below. ALLERGIES: Please see below. PHYSICAL EXAMINATION ON DISCHARGE: VITAL SIGNS: Please see below. General Exam: Positive: Alert, Cooperative, No Acute Distress ENT Exam: Positive: Atraumatic, Mucous membr. moist/pink Neck Exam: Negative: JVD Chest Exam: Positive: Diminished, Negative: Rales Heart Exam: Positive: Rate Normal, Normal S1, Normal S2 Abdomen Exam: Positive: Soft, Negative: Tenderness Extremity Exam: Negative: Tenderness, Swelling Psych Exam: Positive: Oriented x 3 LABORATORY DATA: Please see below. IMAGING: Portable chest, 02:41 p.m., single AP view, patient sitting: Comparisons are 01/14/2013 and 01/16/2015. The patients breast superimposes the lower lung zones artifactually increasing radiodensity. This is similar to prior studies. No focal infiltrates or effusions are identified. Cardiac size is upper normal. There is an old left eighth rib fracture. Impression: No acute cardiopulmonary findings. PROGNOSIS: Fair ACTIVITY: As tolerated. DIET: . 2 g low sodium diet DISCHARGE PLAN: DISPOSITION: . Home DISCHARGE INSTRUCTIONS: 1. . Follow-up with primary care physician within 7 days 2. . Complete course of antibiotic, and tapering dose of steroids 3. . Return to the ER for any acute emergencies DISCHARGE CONDITION: Stable. TIME SPENT ON DISCHARGE: Greater than 30 minutes. Vital Signs/I&Os Vital Signs Date Time Temp Pulse Resp B/P (MAP) Pulse Ox O2 Delivery O2 Flow Rate FiO2 08/25/17 09:15 Nasal Cannula 3.0 08/25/17 06:00 96.9 65 18 151/66 (94) 99 I&O- Last 24 Hours up to 6 AM 08/26/17 05:59 Intake Total 0 ml Output Total 0 ml Balance 0 ml Laboratory Data Labs 24H Laboratory Tests 2 08/24/17 18:27: Bedside Glucose (Misc Panel) 149H 08/24/17 21:17: Bedside Glucose (Misc Panel) 169H 08/25/17 06:41: Anion Gap 3L, Glomerular Filtration Rate > 60.0, Blood Urea Nitrogen 35H, Creatinine 0.80, Sodium Level 144, Potassium Level 3.8, Chloride Level 106, Carbon Dioxide Level 35H, Calcium Level 7.9L, C-Reactive Protein, Quantitative 1.44H CBC/BMP Laboratory Tests 08/25/17 06:41 Red Blood Count 3.83 L, Mean Corpuscular Volume 98.2 H, Mean Corpuscular Hemoglobin 30.5, Mean Corpuscular Hemoglobin Concent 31.1 L, Red Cell Distribution Width 13.2, Calcium Level 7.9 L FSBS Laboratory Tests Test 08/24/17 18:27 08/24/17 21:17 Range/Units Bedside Glucose (Misc Panel) 149 169 83-110 MG/DL Microbiology Microbiology 08/22/17 Blood Culture - Preliminary, Resulted No Growth after 48 hours. All Specime... 08/22/17 Blood Culture - Preliminary, Resulted No Growth after 72 hours. All specime... 08/22/17 Urine Culture - Final, Complete Escherichia Coli Discharge Medications Scheduled (Actonel) 150 Mg Tab, 150 MG PO QMONTH, (Reported) TAKES THE FIRST OF THE MONTH (Flonase Allergy Relief) 50 Mcg/Act Spr, 2 SPRAYS NA DAILY, (Reported) Atorvastatin Calcium (Atorvastatin Calcium) 40 Mg Tab, 40 MG PO QHS, (Reported) Budesonide/Formoterol (Symbicort 160-4.5 Mcg/Act) 60 Puff/Inhaler Aers, 2 PUFF INH BID, (Reported) Dipyridamole/ASA (Aggrenox) (Aggrenox 25-200 mg) 1 Ea Capcr, 1 CAP PO BID, ( Reported) Levofloxacin Hemihydrate (Levaquin) 500 Mg Tab, 500 MG PO DAILY Metformin Hydrochloride (Metformin HCl) 500 Mg Tab, 500 MG PO DAILY, (Reported) Montelukast Sodium (Singulair) 10 Mg Tab, 10 MG PO QHS, (Reported) Prednisone (Prednisone) 10 Mg Tab, 10 MG PO DAILY, (Reported) Prednisone (Prednisone) 10 Mg Tab, 10 MG PO TAPER Take 4 tabs daily x 3 days, then 3 tabs daily x 3 days, then 2 tabs daily x 3 days, then resume home dose of 10mg daily Tiotropium [place] Monohydrate (Spiriva Handihaler) 18 Mcg Cap, 18 MCG INH DAILY , (Reported) Venlafaxine Hydrochloride (Effexor Xr) 150 Mg Cap, 150 MG PO DAILY, (Reported) Scheduled PRN Albuterol Sulfate (Albuterol Sulfate) 2.5 Mg/3 Ml Nebu, 2.5 MG INH Q4HP PRN for SHORTNESS OF BREATH, (Reported) Albuterol Sulfate (Ventolin Hfa) 200 Puff/8 Gm Aers, 2 PUFF INH Q4HP PRN for SHORTNESS OF BREATH, (Reported) Carboxymethylcellulose Sodium (Refresh Tears) 0.5 % Je, 1 DROP OU for DRY EYES, (Reported) Allergies Coded Allergies: Clarithromycin (Verified Allergy, Severe, DIFF BREATHING (HAS TAKEN ZITHROMAX OK), 07/18/17) AZITHROMYCIN IS OK (not likely a macrolide class Rxn) Clavulanic Acid (Verified Allergy, Severe, DIFF BREATHING, 07/18/17) Penicillins (Verified Allergy, Severe, DIFF BREATHING, 07/18/17) Chocolate (Verified Allergy, Unknown, 07/18/17) Ipratropium (Unverified Allergy, Unknown, DIFF BREATHING, 08/22/17) Pseudoephedrine (Verified Allergy, Unknown, 07/18/17) LAITH ONEAL MD Aug 25, 2017 15:05
== END 2017-08-25 14:00 | disposition home or self-care (01) | DRG 191 ==
LOC: M ED 13:56 → EDBD 13:56 → M ED INP 17:32 → M MS5PR 21:26
PROVIDERS: ADMIT Internal Medicine; ATTEND Internal Medicine
DX: J44.1 Chronic obstructive pulmonary disease with (acute) exacerbation (principal); J96.11 Chronic respiratory failure with hypoxia; Z66 Do not resuscitate; E11.9 Type 2 diabetes mellitus without complications; F32.9 Major depressive disorder, single episode, unspecified; I10 Essential (primary) hypertension; J30.2 Other seasonal allergic rhinitis; M81.0 Age-related osteoporosis without current pathological fracture; Z88.0 Allergy status to penicillin; Z88.1 Allergy status to other antibiotic agents; Z88.8 Allergy status to other drugs, medicaments and biological substances; Z87.891 Personal history of nicotine dependence; Z99.81 Dependence on supplemental oxygen; Z79.52 Long term (current) use of systemic steroids; Z86.73 Personal history of transient ischemic attack (TIA), and cerebral infarction without residual deficits; Z79.84 Long term (current) use of oral hypoglycemic drugs; Z79.899 Other long term (current) drug therapy; Z91.018 Allergy to other foods

== ENCOUNTER 2017-12-03 10:29 | Emergency (ER) | payer MEDICARE, OTHER | END 2017-12-03 13:59 | disposition home or self-care (01) | LOC: M ED 10:29 | DX: K59.00 Constipation, unspecified (principal); K64.4 Residual hemorrhoidal skin tags; E11.9 Type 2 diabetes mellitus without complications; J44.9 Chronic obstructive pulmonary disease, unspecified; I11.9 Hypertensive heart disease without heart failure; F33.9 Major depressive disorder, recurrent, unspecified; Z79.52 Long term (current) use of systemic steroids; Z79.84 Long term (current) use of oral hypoglycemic drugs; Z79.899 Other long term (current) drug therapy; Z98.890 Other specified postprocedural states; Z86.73 Personal history of transient ischemic attack (TIA), and cerebral infarction without residual deficits; Z87.891 Personal history of nicotine dependence; Z82.3 Family history of stroke; Z83.6 Family history of other diseases of the respiratory system; Z84.0 Family history of diseases of the skin and subcutaneous tissue; Z88.8 Allergy status to other drugs, medicaments and biological substances; Z88.1 Allergy status to other antibiotic agents; Z88.0 Allergy status to penicillin; Z91.018 Allergy to other foods | CPT/HCPCS: 74021 ==

== ENCOUNTER 2018-01-22 12:29 | Emergency (ER) | payer MEDICARE, OTHER ==
[2018-01-22 14:40] LABS: BASO % 0.3 % (0.0-1.0); EOS % 0.1 % (0.0-3.0); HEMATOCRIT 36.3 % (36.0-47.0); HEMOGLOBIN 11.2 g/dl (12.0-16.0); IMMATURE GRANULOCYTE % 0.4 % (0-3.0); LYMPH # 0.5 10^3/uL (1.5-4.5); LYMPH % 3.5 % (24.0-44.0); MEAN CORPUSCULAR HEMOGLOBIN 30.1 pg (27.0-33.0); MEAN CORPUSCULAR HGB CONC 30.9 g/dl (32.0-36.5); MEAN CORPUSCULAR VOLUME 97.6 fl (80.0-96.0); MONO # 0.8 10^3/uL (0.0-0.8); MONO % 5.3 % (0.0-5.0); NEUTROPHILS # 13.9 10^3/uL (1.8-7.7); NEUTROPHILS % 90.4 % (36.0-66.0); PLATELET COUNT, AUTOMATED 277 10^3/uL (150-450); RED BLOOD COUNT 3.72 10^6/uL (4.00-5.40); RED CELL DISTRIBUTION WIDTH 12.9 % (11.5-14.5); WHITE BLOOD COUNT 15.4 10^3/uL (4.0-10.0)
[2018-01-22 14:43] LABS: INR 0.91; PROTHROMBIN TIME 12.3 SECONDS (12.4-14.5)
[2018-01-22 14:44] LABS: PARTIAL THROMBOPLASTIN TIME 30.5 SECONDS (26.8-37.9)
[2018-01-22 14:57] LABS: ANION GAP 3 MEQ/L (8-16); BLOOD UREA NITROGEN 27 MG/DL (7-18); C REACTIVE PROTEIN QUANTITATIV 4.74 MG/DL (0.00-0.30); CALCIUM LEVEL 8.7 MG/DL (8.8-10.2); CARBON DIOXIDE LEVEL 34 MEQ/L (21-32); CHLORIDE LEVEL 104 MEQ/L (98-107); CREATININE FOR GFR 0.95 MG/DL (0.55-1.30); GLOMERULAR FILTRATION RATE > 60.0 (>39); GLUCOSE, FASTING 144 MG/DL (70-100); SODIUM LEVEL 141 MEQ/L (136-145); URIC ACID 3.1 MG/DL (2.6-6.0)
[2018-01-22] MEDS: CEPHALEXIN 500 MG CAP PO (15:25)
[2018-01-22 15:27] LABS: ERYTHROCYTE SEDIMENTATION RATE 37 mm/hr (0-30)
== END 2018-01-22 15:32 | disposition home or self-care (01) ==
LOC: M ED 12:29
DX: S80.212A Abrasion, left knee, initial encounter (principal); S80.12XA Contusion of left lower leg, initial encounter; S09.90XA Unspecified injury of head, initial encounter; W18.30XA Fall on same level, unspecified, initial encounter; Y92.89 Other specified places as the place of occurrence of the external cause; L03.116 Cellulitis of left lower limb; E11.9 Type 2 diabetes mellitus without complications; I10 Essential (primary) hypertension; J44.9 Chronic obstructive pulmonary disease, unspecified; Z79.84 Long term (current) use of oral hypoglycemic drugs; Z79.52 Long term (current) use of systemic steroids; Z79.899 Other long term (current) drug therapy; Z88.8 Allergy status to other drugs, medicaments and biological substances; Z88.0 Allergy status to penicillin; Z91.018 Allergy to other foods
CPT/HCPCS: 73564

== ENCOUNTER → 2018-02-16 | Outpatient (CLI) | payer MEDICARE, OTHER | LOC: M RAD 16:10 | DX: M79.662 Pain in left lower leg (principal) | CPT/HCPCS: 73721 ==

== ENCOUNTER → 2018-07-13 | Outpatient (CLI) | payer MEDICARE, OTHER | LOC: M LAB 14:22 | DX: J44.9 Chronic obstructive pulmonary disease, unspecified (principal) | CPT/HCPCS: 71046 ==

== ENCOUNTER 2018-10-07 13:55 | Emergency (ER) | payer MEDICARE, OTHER ==
[2018-10-07] MEDS: LEVALBUTEROL 1.25 MG/0.5 ML CONCENTRATE NEB NEB ×2 (14:07→14:22)
[2018-10-07] MEDS ORDERED: IPRATROPIUM 0.5MG/ALBUTEROL 2.5MG INH SOL UD 3ML (DUONEB)(J7620) As Ordered (14:10)
[2018-10-07 14:25] LABS: ABG BASE EXCESS 6.8 (-2.0-2.0); ABG HCO3 30.2 MEQ/L (22.0-26.0); ABG O2 SATURATION 99.7 % (95.0-99.0); ABG PARTIAL PRESSURE CO2 38.7 mmHg (35.0-45.0); ABG PARTIAL PRESSURE O2 242.3 mmHg (75.0-100.0); ABG STANDARD HCO3 30.7 MEQ/L (22.0-26.0); ABG TOTAL CO2 31.4 MEQ/L (23.0-31.0)
[2018-10-07 14:53] LABS: BASO # 0.1 10^3/uL (0.0-0.2); BASO % 0.5 % (0.0-1.0); EOS # 0.2 10^3/uL (0.0-0.50); HEMATOCRIT 40.7 % (36.0-47.0); HEMOGLOBIN 12.6 g/dl (12.0-15.5); IMMATURE GRANULOCYTE % 0.4 % (0-3.0); LYMPH # 1.9 10^3/uL (1.5-4.5); LYMPH % 18.3 % (24.0-44.0); MEAN CORPUSCULAR HEMOGLOBIN 30.2 pg (27.0-33.0); MEAN CORPUSCULAR VOLUME 97.6 fl (80.0-96.0); MONO # 0.8 10^3/uL (0.0-0.8); NEUTROPHILS # 7.4 10^3/uL (1.8-7.7); NEUTROPHILS % 70.8 % (36.0-66.0); PLATELET COUNT, AUTOMATED 292 10^3/uL (150-450); RED BLOOD COUNT 4.17 10^6/uL (4.00-5.40); RED CELL DISTRIBUTION WIDTH 13.2 % (11.5-14.5); WHITE BLOOD COUNT 10.5 10^3/uL (4.0-10.0)
[2018-10-07 14:55] LABS: LACTIC ACID SEPSIS PROTOCOL 1.3 MMOL/L (0.4-2.0)
[2018-10-07 14:55] LABS: ANION GAP 5 MEQ/L (8-16); BLOOD UREA NITROGEN 18 MG/DL (7-18); CALCIUM LEVEL 8.6 MG/DL (8.8-10.2); CARBON DIOXIDE LEVEL 35 MEQ/L (21-32); CHLORIDE LEVEL 104 MEQ/L (98-107); CPK CREATINE PHOSPHOKINASE 85 U/L (26-192); CREATININE FOR GFR 0.94 MG/DL (0.55-1.30); GLOMERULAR FILTRATION RATE > 60.0 (>39); GLUCOSE, FASTING 130 MG/DL (70-100); MB/CK RELATIVE INDEX 3.41 (< OR =4); NT-PRO BNP 448 PG/ML (<450); POTASSIUM SERUM 4.1 MEQ/L (3.5-5.1); SODIUM LEVEL 144 MEQ/L (136-145); TROPONIN I 0.02 NG/ML (< 0.10)
[2018-10-07 15:35] LABS: INFLUENZA A AMPLIFICATION NEGATIVE (NEGATIVE); INFLUENZA B AMPLIFICATION NEGATIVE (NEGATIVE)
== END 2018-10-07 17:15 | disposition home or self-care (01) ==
LOC: M ED 13:55
DX: J44.1 Chronic obstructive pulmonary disease with (acute) exacerbation (principal); J96.91 Respiratory failure, unspecified with hypoxia; E11.9 Type 2 diabetes mellitus without complications; I10 Essential (primary) hypertension; E78.5 Hyperlipidemia, unspecified; Z99.81 Dependence on supplemental oxygen; Z86.73 Personal history of transient ischemic attack (TIA), and cerebral infarction without residual deficits; Z79.899 Other long term (current) drug therapy; Z79.84 Long term (current) use of oral hypoglycemic drugs; Z88.0 Allergy status to penicillin; Z88.1 Allergy status to other antibiotic agents; Z88.8 Allergy status to other drugs, medicaments and biological substances; Z91.018 Allergy to other foods; F17.210 Nicotine dependence, cigarettes, uncomplicated
CPT/HCPCS: 71045

== ENCOUNTER 2018-11-24 11:54 | Emergency (ER) | payer MEDICARE, OTHER ==
[~2018-11-24 11:54] MED LIST changes: +DULC10SU2 PR; -EFFE150C PO; +EFFE150C2 PO; +GABA-845 PO; +GABA600T4 PO; +KEFL500C17 PO; +LEVA1TAB2 PO; +LEVO500T3 PO; +MIRA3350 PO; +REFR0.5D8 OU; +SENN8.6T7 PO; +SENO8.6T10 PO; +VENTAER INH
[2018-11-24 12:18] LABS: BASO # 0.1 10^3/uL (0.0-0.2); BASO % 0.4 % (0.0-1.0); EOS # 0.1 10^3/uL (0.0-0.50); EOS % 0.6 % (0.0-3.0); HEMATOCRIT 39.9 % (36.0-47.0); HEMOGLOBIN 12.4 g/dl (12.0-15.5); LYMPH # 0.9 10^3/uL (1.5-4.5); LYMPH % 6.5 % (24.0-44.0); MEAN CORPUSCULAR HEMOGLOBIN 30.4 pg (27.0-33.0); MEAN CORPUSCULAR HGB CONC 31.1 g/dl (32.0-36.5); MEAN CORPUSCULAR VOLUME 97.8 fl (80.0-96.0); MONO % 7.4 % (0.0-5.0); NEUTROPHILS # 11.5 10^3/uL (1.8-7.7); NEUTROPHILS % 84.8 % (36.0-66.0); PLATELET COUNT, AUTOMATED 225 10^3/uL (150-450); RED BLOOD COUNT 4.08 10^6/uL (4.00-5.40); WHITE BLOOD COUNT 13.5 10^3/uL (4.0-10.0)
[2018-11-24] MEDS ORDERED: ONDANSETRON 4MG/2ML VIAL (J2405) IV ONE (12:30)
[2018-11-24] MEDS ORDERED: NS 1,000 ML IV SCH (12:30)
[2018-11-24 12:58] LABS: ALBUMIN 3.1 GM/DL (3.2-5.2); ALT/SGPT 26 U/L (12-78); AMYLASE 28 U/L (25-115); BILIRUBIN,DIRECT 0.4 MG/DL (0.0-0.2); BILIRUBIN,TOTAL 1.1 MG/DL (0.2-1.0); BLOOD UREA NITROGEN 23 MG/DL (7-18); CALCIUM LEVEL 8.6 MG/DL (8.8-10.2); CARBON DIOXIDE LEVEL 31 MEQ/L (21-32); CHLORIDE LEVEL 102 MEQ/L (98-107); CPK CREATINE PHOSPHOKINASE 81 U/L (26-192); CREATININE FOR GFR 0.93 MG/DL (0.55-1.30); GLOMERULAR FILTRATION RATE > 60.0 (>39); GLUCOSE, FASTING 144 MG/DL (70-100); LIPASE 88 U/L (73-393); MB/CK RELATIVE INDEX 2.47 (< OR =4); POTASSIUM SERUM 4.1 MEQ/L (3.5-5.1); SODIUM LEVEL 139 MEQ/L (136-145); TROPONIN I < 0.02 NG/ML (< 0.10)
[2018-11-24 13:10] LABS: INFLUENZA A AMPLIFICATION NEGATIVE (NEGATIVE); INFLUENZA B AMPLIFICATION NEGATIVE (NEGATIVE)
--- NOTE | 2018-11-24 13:41 | REP ---
ABDOMEN, FLAT/UPRIGHT, PA CHEST: HISTORY: Abdominal pain. A small ant of air is present in small and large intestine. There are no air-fluid levels or dilated loops of intestine. There is no pneumoperitoneum. Degenerative change is present in the spine. The patient is status post L2 through L4 kyphoplasty. Linear densities are present in the lower lobes consistent with chronic interstitial fibrosis. The cardiac silhouette is enlarged. IMPRESSION: 1. Nonspecific bowel gas pattern. 2. Chronic interstitial fibrosis. 3. Cardiomegaly. Electronically Signed by Mark Mora MD 11/24/2018 02:27 P
[2018-11-24] MEDS ORDERED: DILUENT IV ONE (13:45)
[2018-11-24] MEDS ORDERED: NS IV ONE (13:45)
[2018-11-24] MEDS: GASTROGRAFIN SOLUTION 30ML PO SCH ×2 (14:09→14:49)
[2018-11-24] MEDS ORDERED: ISOVUE-370 76% 100ML VIAL (Q9967) As Ordered ONE (14:10)
[2018-11-24] MEDS ORDERED: IPRATROPIUM 0.5MG/ALBUTEROL 2.5MG INH SOL UD 3ML (DUONEB)(J7620) NEB ONE (16:15)
[2018-11-24] MEDS ORDERED: ZOFR4TAB14 SL (18:12)
[2018-11-24 18:46] VITALS: BP 133/62
--- NOTE | 2018-11-25 05:51 | ECGEPIP ---
Stationary ECG Study [facility] - ED Test Date: 2018-11-24 Pat Name: FARSHAD RODRIGUEZ Department: Room: - Gender: F Facilities Technician: lay : 1940 Requested By: HUMZA Arriola Order Number: [id number] Reading MD: Hunter Dinero Measurements Intervals [place] Rate: 87 P: -32 [place]: 144 QRS: 45 QRSD: 75 T: 32 QT: 354 QTc: 427 Interpretive Statements SINUS RHYTHM WITH OCCASIONAL SUPRAVENTRICULAR PREMATURE COMPLEXES NONSPECIFIC T-WAVE ABNORMALITY SIMILAR TO 10/07/18 Electronically Signed On 11-25-2018 5:50:47 EST by Hunter Dinero
--- NOTE | 2018-11-25 07:39 | REP ---
CT ABDOMEN AND PELVIS WITH CONTRAST: HISTORY: Abdominal pain. CONTRAST: Isovue-370, 100 mL. COMPARISON: 06/28/2017 A 2.2 cm hypodensity is present in the liver. This represents a hemangioma. Smaller 8 and 10 mm hypodensities are present in the liver that likely represent cysts. There is moderate distention of the gallbladder. Several small cysts measuring up to 1 cm are present in the right kidney. Several cysts are present in the left kidney. These measure 5 mm to 6.9 cm. The pancreas, spleen, and adrenal glands are normal in appearance. There is no mass, adenopathy, or free fluid. A small hiatal hernia is present. A 4.9 cm fat-containing ventral abdominal hernia is present. A large bulla is present in the right lower lobe. The patient is status post hysterectomy. There is moderate distention of the urinary bladder. Degenerative change is present in the spine. The patient is status post L2 to L4 kyphoplasty. IMPRESSION: 1. 2.2 cm liver hemangioma. 2. There are two small liver cysts. 3. Moderate gallbladder distention. 4. Bilateral renal cysts. 5. Small hiatal hernia. 6. 4.9 cm fat-containing ventral abdominal hernia. 7. The patient is status post hysterectomy. 8. There is moderate distention of the urinary bladder. Electronically Signed by Mark Mora MD 11/25/2018 08:43 A
--- NOTE | 2018-11-27 09:04 | ED PDOC ---
Post-Departure Follow-Up dr grant faxed formal report of ct abd/p for fu Zoe Brown MD Nov 27, 2018 09:04
== END 2018-11-24 20:31 | disposition home or self-care (01) ==
LOC: M ED 11:54 → EDBD 11:54 → M ED 20:31
DX: K52.9 Noninfective gastroenteritis and colitis, unspecified (principal); I10 Essential (primary) hypertension; E78.5 Hyperlipidemia, unspecified; J44.9 Chronic obstructive pulmonary disease, unspecified; Z86.73 Personal history of transient ischemic attack (TIA), and cerebral infarction without residual deficits; Z88.0 Allergy status to penicillin; Z88.8 Allergy status to other drugs, medicaments and biological substances; Z88.1 Allergy status to other antibiotic agents; Z91.018 Allergy to other foods; Z79.899 Other long term (current) drug therapy; Z79.51 Long term (current) use of inhaled steroids; Z79.52 Long term (current) use of systemic steroids; Z79.84 Long term (current) use of oral hypoglycemic drugs
CPT/HCPCS: 74021; 74177; 80048; 80076; 82150; 82550; 82553; 83605; 83690; 84484; 85025; 87502; 93005; 93041; 94640; 96374; 99285; J2405; Q9963; Q9967

== ENCOUNTER → 2019-10-31 | Outpatient (CLI) | payer MEDICARE, OTHER ==
[~2019-10-31] MED LIST changes: -MAGN1TAB25 PO; +MAGN1TAB26 PO; +PRED-351 PO; -PRED10TA PO; +SENN1TAB41 PO; -SENN8.6T7 PO; +SIMV10TA21 PO; -SIMV40TA2 PO; +SIMV40TA20 PO; +ZOFR4TAB14 SL
--- NOTE | 2019-10-31 16:23 | REP ---
WHOLE BODY BONE SCAN: Following the intravenous administration of 21.9 mCi of technetium 99m MDP, the patient's whole body is imaged in the anterior and posterior projections with additional oblique and lateral views obtained. Periarticular arthritic uptake is seen at the right metacarpophalangeal joints and at the left wrist. Scattered mild increased uptake is seen throughout the spine most consistent with scattered arthritic changes. There is mild curvature of the thoracolumbar spine convex to the right. Periarticular uptake at the right hip joint is consistent with moderate degree of arthritic change. There appears to be arthritic uptake in the right tarsal region. There is moderate periarticular arthritic uptake in the right shoulder. Renal and bladder activity are seen. IMPRESSION: Scattered areas of arthritic uptake as discussed in detail above. Unreviewed
== END ==
LOC: M RAD 10:34
PROVIDERS: ATTEND Orthopaedic Surgery
DX: M54.5 Low back pain (principal)
CPT/HCPCS: 78306; A9503

== ENCOUNTER 2019-11-12 13:16 | Emergency (ER) | payer MEDICARE, OTHER ==
[~2019-11-12] VITALS: Ht 160 cm; Wt 76.6 kg
[2019-11-12 13:51] LABS: BASO # 0.1 10^3/uL (0.0-0.2); BASO % 0.5 % (0.0-1.0); EOS # 0.2 10^3/uL (0.0-0.5); EOS % 1.5 % (0.0-3.0); HEMATOCRIT 40.8 % (36.0-47.0); HEMOGLOBIN 12.2 g/dl (12.0-15.5); LYMPH # 1.2 10^3/uL (1.5-5.0); LYMPH % 11.5 % (24.0-44.0); MEAN CORPUSCULAR HEMOGLOBIN 29.3 pg (27.0-33.0); MEAN CORPUSCULAR HGB CONC 29.9 g/dl (32.0-36.5); MEAN CORPUSCULAR VOLUME 98.1 fl (80.0-96.0); MONO # 0.8 10^3/uL (0.0-0.8); MONO % 7.8 % (0.0-5.0); NEUTROPHILS # 8.3 10^3/uL (1.5-8.5); NEUTROPHILS % 78.3 % (36.0-66.0); PLATELET COUNT, AUTOMATED 280 10^3/uL (150-450); RED BLOOD COUNT 4.16 10^6/uL (4.00-5.40); WHITE BLOOD COUNT 10.6 10^3/uL (4.0-10.0)
[2019-11-12] MEDS ORDERED: ASPI1CAP3 (13:51)
--- NOTE | 2019-11-12 14:06 | REP ---
Clinical: Cough and dyspnea. Comparison: 10/07/2018. Findings: Stable cardiomegaly and COPD with chronic interstitial changes are appreciated. Subtle superimposed basilar atelectasis cannot be excluded. No effusion. No pneumothorax. Skeletal structures intact. Impression: Chronic stable changes. Cannot exclude basilar atelectasis. Electronically Signed by Ramírez Pickard MD 11/12/2019 01:58 P
[2019-11-12] MEDS: IPRATROPIUM 0.5MG/ALBUTEROL 2.5MG INH SOL UD 3ML (DUONEB)(J7620) NEB SCH ×3 (14:07→15:32)
[2019-11-12 14:23] LABS: BLOOD UREA NITROGEN 23 MG/DL (7-18); CALCIUM LEVEL 8.8 MG/DL (8.8-10.2); CARBON DIOXIDE LEVEL 33 MEQ/L (21-32); CHLORIDE LEVEL 103 MEQ/L (98-107); CK-MB VALUE MASS 2.5 NG/ML (<3.6); CPK CREATINE PHOSPHOKINASE 88 U/L (26-192); CREATININE FOR GFR 0.88 MG/DL (0.55-1.30); GLOMERULAR FILTRATION RATE > 60.0 (>39); GLUCOSE, FASTING 138 MG/DL (70-100); MB/CK RELATIVE INDEX 2.84 (< OR =4); NT-PRO BNP 539 PG/ML (<450); POTASSIUM SERUM 4.4 MEQ/L (3.5-5.1); SODIUM LEVEL 140 MEQ/L (136-145); TROPONIN I < 0.02 NG/ML (< 0.10)
[2019-11-12 14:46] LABS: INFLUENZA A AMPLIFICATION NEGATIVE (NEGATIVE); INFLUENZA B AMPLIFICATION NEGATIVE (NEGATIVE)
[2019-11-12 15:51] VITALS: O2SAT 99
[2019-11-12 16:47] VITALS: BP 159/72
--- NOTE | 2019-11-12 20:33 | ECGEPIP ---
[facility] - ED Test Date: 2019-11-12 Pat Name: FARSHAD RODRIGUEZ Department: Room: - Gender: Female Dance Therapist: : 1940 Requested By: Hunter Talley Order Number: [id number] Reading MD: Hunter Dinero Measurements Intervals [place] Rate: 89 P: -5 [place]: 132 QRS: 45 QRSD: 78 T: -3 QT: 339 QTc: 414 Interpretive Statements SINUS RHYTHM WITH MARKED SINUS ARRHYTHMIA VOLTAGE CRITERIA FOR LVH NSTTW ABNORMALITIES SIMILAR TO 11/24/18 Electronically Signed on 11-12-2019 20:33:38 EST by Hunter Dinero
== END 2019-11-12 16:48 | disposition home or self-care (01) ==
LOC: M ED 13:16
DX: J44.1 Chronic obstructive pulmonary disease with (acute) exacerbation (principal); E11.9 Type 2 diabetes mellitus without complications; I10 Essential (primary) hypertension; Z99.81 Dependence on supplemental oxygen; Z79.899 Other long term (current) drug therapy; Z79.84 Long term (current) use of oral hypoglycemic drugs; Z79.82 Long term (current) use of aspirin; Z88.0 Allergy status to penicillin; Z88.1 Allergy status to other antibiotic agents; Z88.8 Allergy status to other drugs, medicaments and biological substances; Z91.018 Allergy to other foods; Z87.891 Personal history of nicotine dependence

== ENCOUNTER 2019-11-28 12:08 | Inpatient (IN) | payer MEDICARE, OTHER ==
[~2019-11-28] VITALS: Ht 160 cm; Wt 76.5 kg
[~2019-11-28 12:08] MED LIST changes: +ASPI1CAP3
[2019-11-28] MEDS ORDERED: BUDE0.5S6 INH (12:30)
[2019-11-28 12:52] LABS: BASO % 0.2 % (0.0-1.0); EOS % 0.1 % (0.0-3.0); HEMATOCRIT 37.8 % (36.0-47.0); HEMOGLOBIN 11.7 g/dl (12.0-15.5); LYMPH % 4.2 % (24.0-44.0); MEAN CORPUSCULAR HEMOGLOBIN 30.1 pg (27.0-33.0); MEAN CORPUSCULAR VOLUME 97.2 fl (80.0-96.0); MONO # 1.7 10^3/uL (0.0-0.8); PLATELET COUNT, AUTOMATED 247 10^3/uL (150-450); RED BLOOD COUNT 3.89 10^6/uL (4.00-5.40); WHITE BLOOD COUNT 23.9 10^3/uL (4.0-10.0)
[2019-11-28] MEDS ORDERED: IPRATROPIUM 0.5MG/ALBUTEROL 2.5MG INH SOL UD 3ML (DUONEB)(J7620) NEB ONE (13:00)
[2019-11-28] MEDS ORDERED: ALBUTEROL SULFATE 2.5 MG/0.5 ML INH NEB SOLN INH ONE (13:00)
[2019-11-28 13:28] LABS: ALBUMIN 3.3 GM/DL (3.2-5.2); ALT/SGPT 23 U/L (12-78); BILIRUBIN,DIRECT 0.3 MG/DL (0.0-0.2); BILIRUBIN,TOTAL 0.9 MG/DL (0.2-1.0); BLOOD UREA NITROGEN 32 MG/DL (7-18); CALCIUM LEVEL 8.6 MG/DL (8.8-10.2); CARBON DIOXIDE LEVEL 32 MEQ/L (21-32); CHLORIDE LEVEL 99 MEQ/L (98-107); CK-MB VALUE MASS 1.9 NG/ML (<3.6); CPK CREATINE PHOSPHOKINASE 107 U/L (26-192); CREATININE FOR GFR 0.91 MG/DL (0.55-1.30); GLOMERULAR FILTRATION RATE > 60.0 (>39); GLUCOSE, FASTING 156 MG/DL (70-100); MB/CK RELATIVE INDEX 1.78 (< OR =4); SODIUM LEVEL 139 MEQ/L (136-145); TOTAL PROTEIN 6.1 GM/DL (6.4-8.2); TROPONIN I 0.02 NG/ML (< 0.10)
[2019-11-28 13:40] LABS: INFLUENZA A AMPLIFICATION NEGATIVE (NEGATIVE); INFLUENZA B AMPLIFICATION NEGATIVE (NEGATIVE)
--- NOTE | 2019-11-28 13:41 | REP ---
Portable chest x-ray: Single view. History: Shortness of breath. Comparison chest x-ray 11/12/2019 and five December 09, 2018. Findings: There is a thoracic scoliotic curve dextroconvex again noted. There are emphysematous changes in the upper lobes of the lungs fairly extensively consistent with COPD. Old healed rib fracture noted on the left. The heart is not enlarged. Mitral annular calcification is noted. Pulmonary vasculature is not increased. No acute infiltrate is seen. Impression: Evidence of COPD. No acute infiltrate. Electronically Signed by Altaf Colvin MD 11/28/2019 01:33 P
--- NOTE | 2019-11-28 16:32 | REP ---
CT CHEST WITHOUT IV CONTRAST: CT chest performed without IV contrast. Diffuse emphysematous changes are present with scattered fibrotic changes. There is fibroatelectatic change along each diaphragm. Bullous changes seen medially in the right lung base. I see no evidence of acute infiltrate. There is atherosclerotic calcification of the thoracic aorta without aneurysm. No axillary or mediastinal adenopathy is seen. Heart is upper limits of normal in size. There is a small hiatal hernia. There is a small cyst in the left lobe of the liver. There are degenerative changes of the spine. IMPRESSION: Emphysematous and chronic fibrotic change. No acute infiltrate. Electronically Signed by Vernon Mccabe MD 11/28/2019 05:45 P
--- NOTE | 2019-11-28 16:44 | HPEPDOC ---
General Date of Admission Date of Service: Nov 28, 2019 Attending Physician: SREEDHAR NIÑO MD Chief Complaint fatigue/weakness Source: Patient History of Present Illness 77 year old female presents with generalized weakness and lethargy. States symptoms have been steadily progressing over the past few days but worsened yesterday morning. "I was just tired all day and wasn't able to get out of bed until 3pm". Denies fever/chills, cough, chest pain/pressure, n/v/d, abdominal pain, urinary complaints. Presents to the ED due to continuation of symptoms. VSS, afebrile. Labs with WBC 23.9, CT chest negative for infiltrates, flu negative, positive UA. Admission for further management. Home Medications Scheduled Aspirin/Dipyridamole (Aggrenox 25 mg-200 mg Capsule) 1 Ea Capcr, 1 CAP PO BID, (Reported) Budesonide (Budesonide) 0.5 Mg/2 Ml Ampul.neb, 1 INH INH BID, (Reported) Budesonide/Formoterol (Symbicort 160-4.5 Mcg Inhaler) 60 Puff/Inhaler Aers, 2 PUFF INH BID, (Reported) Carboxymethylcellulose Sodium (Refresh Tears) 0.5 % Je, 1 DROP OU DAILY, (Reported) Fluticasone Propionate (Flonase Allergy Relief) 50 Mcg/Act Spr, 2 SPRAYS NA DAILY, (Reported) Gabapentin (Gabapentin) 600 Mg Tab, 600 MG PO TID, (Reported) Metformin HCl (Metformin HCl) 500 Mg Tab, 500 MG PO DAILY, (Reported) Montelukast Sodium (Singulair) 10 Mg Tab, 10 MG PO QHS, (Reported) Prednisone (Prednisone) 10 Mg Tab, 10 MG PO DAILY, (Reported) Risedronate Sodium (Actonel) 150 Mg Tab, 150 MG PO QMONTH, (Reported) TAKES THE FIRST OF THE MONTH Tiotropium [place] (Spiriva) 18 Mcg Cap, 18 MCG INH DAILY, (Reported) Venlafaxine HCl (Effexor Xr) 150 Mg Cap, 150 MG PO DAILY, (Reported) Scheduled PRN Albuterol Sulf (Albuterol Sulfate) 2.5 Mg/3 Ml Nebu, 2.5 MG INH Q4H PRN for SHORTNESS OF BREATH, (Reported) Albuterol Sulfate (Ventolin Hfa) 108 Mcg/Act Aer, 2 PUFFS INH Q4H PRN for SHORTNESS OF BREATH, (Reported) Polyethylene Glycol 3350 (Miralax) 1 Pow Pow, 17 GM PO DAILY PRN for CONSTIPATION, (Reported) Sennosides/Docusate Sodium (Senna-S Tablet) 1 Tab Tab, 1 TAB PO DAILY PRN for CONSTIPATION, (Reported) Allergies Coded Allergies: Penicillins (Verified Allergy, Unknown, 11/12/19) chocolate flavor (Verified Allergy, Unknown, 11/12/19) clarithromycin (Verified Allergy, Unknown, 11/12/19) clavulanic acid (Verified Allergy, Unknown, 11/12/19) ipratropium (Verified Allergy, Unknown, 11/12/19) pseudoephedrine (Verified Allergy, Unknown, 11/12/19) Past Medical History Medical History CVA, COPD (on home oxygen 3.5L), DM2, depression, HTN, OP Surgical History kyphoplasty Family History Significant Family History: No pertinent family hx Social History * Smoker: current smoker Alcohol: Denies Drugs: denies A-FIB/CHADSVASC A-FIB History Current/History of A-Fib/PAF?: No Current PO Anticoag Therapy: No Review of Systems Constitutional: Reports: Weakness, Fatigue Neurological: Reports: Weakness Physical Examination General Exam: Positive: Mild Distress Chest Exam: Positive: Diminished Vital Signs Vital Signs Date Time Temp Pulse Resp B/P (MAP) Pulse Ox O2 Delivery O2 Flow Rate FiO2 11/28/19 15:08 93 99 11/28/19 14:46 107/56 (73) 11/28/19 14:15 20 Nasal Cannula 3.0 11/28/19 12:49 99.0 Laboratory Data Labs 24H Laboratory Tests 2 11/28/19 12:32: Immature Granulocyte % (Auto) 0.5, Neutrophils (%) (Auto) 88.0H, Lymphocytes (%) (Auto) 4.2L, Monocytes (%) (Auto) 7.0H, Eosinophils (%) (Auto) 0.1, Basophils (%) (Auto) 0.2, Neutrophils # (Auto) 21.0H, Lymphocytes # (Auto) 1.0L, Monocytes # (Auto) 1.7H, Eosinophils # (Auto) 0.0, Basophils # (Auto) 0.0, Nucleated Red Blood Cells % (auto) 0.0, Anion Gap 8, Glomerular Filtration Rate > 60.0, Calcium Level 8.6L, Total Bilirubin 0.9, Direct Bilirubin 0.3H, Aspartate Amino Transf (AST/SGOT) 12, Alanine Aminotransferase (ALT/SGPT) 23, Alkaline Phosphatase 71, Total Creatine Kinase 107, Creatine Kinase MB 1.9, Creatine Kinase MB Relative Index 1.78, Troponin I 0.02, Total Protein 6.1L, Albumin 3.3, Albumin/Globulin Ratio 1.18, Thyroid Stimulating Hormone (TSH) 1.130 11/28/19 13:02: Influenza Type A (RT-PCR) NEGATIVE, Influenza Type B (RT-PCR) NEGATIVE 11/28/19 13:19: POC pH (Misc Panel) 7.410, POC Base Excess (Misc Panel) 12.0H, POC Saturated Percent O2 (Misc) 99H, POC pO2 (Misc Panel) 147.0H, POC pCO2 (Misc Panel) 57.3H, POC HCO3 (Misc Panel) 36.3H, POC Total CO2 (Misc Panel) 38.0H 11/28/19 14:53: Urine Color WILNER, Urine Appearance CLOUDYH, Urine pH 6.0, Urine Specific [place] 1.019, Urine Protein 1+H, Urine Glucose (UA) NEGATIVE, Urine Ketones TRACEH, Urine Blood 2+H, Urine Nitrite POSITIVEH, Urine Bilirubin NEGATIVE, Urine Urobilinogen 4.0H, Urine Leukocyte Esterase 3+H, Urine WBC (Auto) 39H, Urine RBC (Auto) 13H, Urine Hyaline Casts (Auto) 0, Urine Bacteria (Auto) 3+H, Urine Squamous Epithelial Cells 6, Urine Mucus (Auto) SMALL, Urine Sperm (Auto) CBC/BMP Laboratory Tests 11/28/19 12:32 Microbiology Microbiology 11/28/19 Urine Culture, Received Pending Assessment/Plan 1. UTI - admit to medical floor. - IV antibiotics. - blood/urine cultures. - IVF NS. 2. chronic respiratory failure with hypoxia secondary to COPD - on home oxygen 3.5L 12/06. - continue supplemental oxygen. - on prednisone 10mg daily, continue. - continue inhalers/nebs. 3. DM2 - Hold oral meds. - FSBS AC/HS, SSI coverage. Plan / VTE VTE Prophylaxis Ordered?: Yes SREEDHAR NIÑO MD Nov 28, 2019 16:43
[2019-11-28] MEDS ORDERED: GLUCAGON FOR INJ 1 MG VIAL (J1610) SC PRN (17:00)
[2019-11-28] MEDS ORDERED: GLUCOSE 4 GM CHEW TABLET PO PRN (17:00)
[2019-11-28] MEDS ORDERED: DEXTROSE 50% 50 ML SYRINGE IV PRN (17:00)
[2019-11-28] MEDS ORDERED: SENOKOT S TAB PO PRN (17:15)
[2019-11-28] MEDS ORDERED: ALBUTEROL 90 MCG/ACT 8GM HFA INHALER INH PRN (17:15)
[2019-11-28] MEDS: HumaLOG INSULIN (NovoLOG) PER UNIT SC SCH (17:30)
[2019-11-28 18:20] VITALS: BP 126/62
--- NOTE | 2019-11-28 19:23 | ECGEPIP ---
[facility] - ED Test Date: 2019-11-28 Pat Name: FARSHAD RODRIGUEZ Department: Room: - Gender: Female Respiratory Scientist: JAQUAN : 1940 Requested By: Nedra Lloyd Order Number: [id number] Reading MD: Hunter Dinero Measurements Intervals [place] Rate: 94 P: SD: 0 QRS: 39 QRSD: 74 T: -34 QT: 341 QTc: 427 Interpretive Statements SINUS RHYTHM WITH SINUS ARRHYTHMIA AND OCCASIONAL SUPRAVENTRICULAR PREMATURE COMPLEXES VOLTAGE CRITERIA FOR LVH POOR R WAVE PROGRESSION SIMILAR TO 11/12/19 Electronically Signed on 11-28-2019 19:22:47 EST by Hunter Dinero
[2019-11-28] MEDS: SYMBICORT 160/4.5MCG INHALER 6GM INH SCH (19:48)
[2019-11-28] MEDS: ALBUTEROL SULFATE 2.5 MG/0.5 ML INH NEB SOLN INH PRN (19:48)
[2019-11-28] MEDS: predniSONE 20 MG TAB PO SCH (20:23)
[2019-11-28] MEDS: MONTELUKAST 10 MG TAB PO SCH (20:54)
[2019-11-28] MEDS: GABAPENTIN 300 MG CAP PO SCH (20:54)
[2019-11-28] MEDS: CIPROFLOXACIN 400 MG in IV 1 EA IV SCH (20:56)
[2019-11-28 22:00] VITALS: BP 126/64
[2019-11-28] MEDS: DIPYRIDAMOLE/ASA (AGGRENOX) 200MG/25MG CAPCR PO SCH (22:32)
[2019-11-29] MEDS: ALBUTEROL SULFATE 2.5 MG/0.5 ML INH NEB SOLN INH PRN (01:14)
[2019-11-29] MEDS: CIPROFLOXACIN 400 MG in IV 1 EA IV SCH ×2 (05:38→17:08)
[2019-11-29 06:00] VITALS: BP 132/72
[2019-11-29 06:45] LABS: ALBUMIN 3.1 GM/DL (3.2-5.2); BILIRUBIN,TOTAL 0.9 MG/DL (0.2-1.0); CALCIUM LEVEL 8.5 MG/DL (8.8-10.2); CREATININE FOR GFR 1.05 MG/DL (0.55-1.30); GLOMERULAR FILTRATION RATE 54.1 (>39); POTASSIUM SERUM 4.1 MEQ/L (3.5-5.1); TOTAL PROTEIN 6.5 GM/DL (6.4-8.2)
[2019-11-29] MEDS: SYMBICORT 160/4.5MCG INHALER 6GM INH SCH ×2 (07:24→20:17)
[2019-11-29] MEDS: IPRATROPIUM 0.5MG/ALBUTEROL 2.5MG INH SOL UD 3ML (DUONEB)(J7620) NEB PRN ×2 (07:25→13:37)
[2019-11-29] MEDS: VENLAFAXINE **XR** 75MG CAPSULE PO SCH (08:41)
[2019-11-29] MEDS: DIPYRIDAMOLE/ASA (AGGRENOX) 200MG/25MG CAPCR PO SCH ×2 (08:41→20:21)
[2019-11-29] MEDS: GABAPENTIN 300 MG CAP PO SCH ×3 (08:41→20:21)
[2019-11-29] MEDS: predniSONE 20 MG TAB PO SCH (08:41)
[2019-11-29] MEDS: ENOXAPARIN 30 MG/0.3 ML SYR (J1650) SC SCH (08:42)
[2019-11-29] MEDS: HumaLOG INSULIN (NovoLOG) PER UNIT SC SCH ×3 (08:43→17:08)
[2019-11-29] MEDS: FLUTICASONE PROP 0.05% NASAL SPRAY 16 GM (FLONASE) SCH (08:43)
[2019-11-29 14:00] VITALS: BP 128/64
--- NOTE | 2019-11-29 16:14 | IPNPDOC ---
Subjective Date Seen The patient was seen on 11/29/19. Subjective Chief Complaint/HPI Seen and examined at bedside, feels "rested today". Denies cp/pressure, sob, n/v/d, abdominal pain. General: Reports: Normal Appetite; Denies: Chills, Night Sweats, Fatigue, Malaise Objective Physical Examination Chest Exam: Positive: Diminished Assessment /Plan Assessment 1. UTI - continue IV antibiotics. - f/u blood/urine cultures. - IVF NS. 2. chronic respiratory failure with hypoxia secondary to COPD - on home oxygen 3.5L 12/06. - continue supplemental oxygen. - on prednisone 10mg daily, continue. - continue inhalers/nebs. 3. DM2 - Hold oral meds. - FSBS AC/HS, SSI coverage. Plan/VTE VTE Prophylaxis Ordered?: Yes VS, I&O, 24H, Fishbone Vital Signs/I&O Vital Signs Date Time Temp Pulse Resp B/P (MAP) Pulse Ox O2 Delivery O2 Flow Rate FiO2 11/29/19 09:00 3.0 11/29/19 06:00 97.7 79 18 132/72 (92) 98 Nasal Cannula I&O- Last 24 Hours up to 6 AM 11/29/19 06:00 Intake Total 620 ml Output Total 0 ml Balance 620 ml Laboratory Data 24H LABS Laboratory Tests 2 11/28/19 12:32: Immature Granulocyte % (Auto) 0.5, Neutrophils (%) (Auto) 88.0H, Lymphocytes (%) (Auto) 4.2L, Monocytes (%) (Auto) 7.0H, Eosinophils (%) (Auto) 0.1, Basophils (%) (Auto) 0.2, Neutrophils # (Auto) 21.0H, Lymphocytes # (Auto) 1.0L, Monocytes # (Auto) 1.7H, Eosinophils # (Auto) 0.0, Basophils # (Auto) 0.0, Nucleated Red Blood Cells % (auto) 0.0, Anion Gap 8, Glomerular Filtration Rate > 60.0, Calcium Level 8.6L, Total Bilirubin 0.9, Direct Bilirubin 0.3H, Aspartate Amino Transf (AST/SGOT) 12, Alanine Aminotransferase (ALT/SGPT) 23, Alkaline Phosphatase 71, Total Creatine Kinase 107, Creatine Kinase MB 1.9, Creatine Kinase MB Relative Index 1.78, Troponin I 0.02, Total Protein 6.1L, Albumin 3.3, Albumin/Globulin Ratio 1.18, Thyroid Stimulating Hormone (TSH) 1.130 11/28/19 13:02: Influenza Type A (RT-PCR) NEGATIVE, Influenza Type B (RT-PCR) NEGATIVE 11/28/19 13:19: POC pH (Misc Panel) 7.410, POC Base Excess (Misc Panel) 12.0H, POC Saturated Percent O2 (Misc) 99H, POC pO2 (Misc Panel) 147.0H, POC pCO2 (Misc Panel) 57.3H, POC HCO3 (Misc Panel) 36.3H, POC Total CO2 (Misc Panel) 38.0H 11/28/19 14:53: Urine Color WILNER, Urine Appearance CLOUDYH, Urine pH 6.0, Urine Specific [place] 1.019, Urine Protein 1+H, Urine Glucose (UA) NEGATIVE, Urine Ketones TRACEH, Urine Blood 2+H, Urine Nitrite POSITIVEH, Urine Bilirubin NEGATIVE, Urine Urobilinogen 4.0H, Urine Leukocyte Esterase 3+H, Urine WBC (Auto) 39H, Urine RBC (Auto) 13H, Urine Hyaline Casts (Auto) 0, Urine Bacteria (Auto) 3+H, Urine Squamous Epithelial Cells 6, Urine Mucus (Auto) SMALL, Urine Sperm (Auto) 11/28/19 21:11: Bedside Glucose (Misc Panel) 181H 11/29/19 06:06: Anion Gap 6L, Glomerular Filtration Rate 54.1, Calcium Level 8.5L, Total Bilirubin 0.9, Aspartate Amino Transf (AST/SGOT) 17, Alanine Aminotransferase (ALT/SGPT) 17, Alkaline Phosphatase 65, Total Protein 6.5, Albumin 3.1L, Albumin/Globulin Ratio 0.91L CBC/BMP Laboratory Tests 11/28/19 12:32 11/29/19 06:06 Microbiology Microbiology 11/28/19 Blood Culture, Received Pending 11/28/19 Blood Culture, Received Pending 11/28/19 Urine Culture, Received Pending SREEDHAR NIÑO MD Nov 29, 2019 11:14
[2019-11-29] MEDS: MONTELUKAST 10 MG TAB PO SCH (20:21)
[2019-11-29 22:00] VITALS: BP 125/62
[2019-11-30] MEDS: CIPROFLOXACIN 400 MG in IV 1 EA IV SCH (05:20)
[2019-11-30 06:00] VITALS: BP 124/88
[2019-11-30 06:06] LABS: HEMATOCRIT 35.2 % (36.0-47.0); HEMOGLOBIN 10.5 g/dl (12.0-15.5); MEAN CORPUSCULAR HEMOGLOBIN 29.2 pg (27.0-33.0); MEAN CORPUSCULAR HGB CONC 29.8 g/dl (32.0-36.5); MEAN CORPUSCULAR VOLUME 98.1 fl (80.0-96.0); PLATELET COUNT, AUTOMATED 236 10^3/uL (150-450); RED BLOOD COUNT 3.59 10^6/uL (4.00-5.40); WHITE BLOOD COUNT 15.8 10^3/uL (4.0-10.0)
[2019-11-30 06:27] LABS: BLOOD UREA NITROGEN 33 MG/DL (7-18); CALCIUM LEVEL 8.1 MG/DL (8.8-10.2); CARBON DIOXIDE LEVEL 33 MEQ/L (21-32); CHLORIDE LEVEL 102 MEQ/L (98-107); CREATININE FOR GFR 0.91 MG/DL (0.55-1.30); GLOMERULAR FILTRATION RATE > 60.0 (>39); GLUCOSE, FASTING 180 MG/DL (70-100); POTASSIUM SERUM 3.6 MEQ/L (3.5-5.1); SODIUM LEVEL 141 MEQ/L (136-145)
[2019-11-30] MEDS: SYMBICORT 160/4.5MCG INHALER 6GM INH SCH ×2 (07:29→20:22)
[2019-11-30] MEDS: IPRATROPIUM 0.5MG/ALBUTEROL 2.5MG INH SOL UD 3ML (DUONEB)(J7620) NEB PRN ×3 (07:29→20:22)
[2019-11-30] MEDS: DIPYRIDAMOLE/ASA (AGGRENOX) 200MG/25MG CAPCR PO SCH ×2 (08:05→20:39)
[2019-11-30] MEDS: GABAPENTIN 300 MG CAP PO SCH ×3 (08:05→20:39)
[2019-11-30] MEDS: VENLAFAXINE **XR** 75MG CAPSULE PO SCH (08:06)
[2019-11-30] MEDS: predniSONE 20 MG TAB PO SCH (08:06)
[2019-11-30] MEDS: ENOXAPARIN 30 MG/0.3 ML SYR (J1650) SC SCH (08:07)
[2019-11-30] MEDS: HumaLOG INSULIN (NovoLOG) PER UNIT SC SCH ×3 (08:07→17:39)
[2019-11-30] MEDS: FLUTICASONE PROP 0.05% NASAL SPRAY 16 GM (FLONASE) SCH (11:21)
--- NOTE | 2019-11-30 12:02 | IPNPDOC ---
Subjective Date Seen The patient was seen on 11/30/19. Subjective Chief Complaint/HPI Seen and examined at bedside, no specific complaints today, feels well. General: Reports: Normal Appetite; Denies: Chills, Night Sweats, Fatigue, Malaise Constitutional: Denies: Chills, Fever, Night Sweats Eyes: Denies: Pain, Vision change ENT: Denies: Head Aches, Ear Pain, Dysphagia Skin: Denies: Rash, Lesions, Breakdown Pulmonary: Denies: Dyspnea, Cough Cardiovascular: Denies: Chest Pain, Palpitations, Orthopnea, Paroxysmal Noc. Dyspnea, Lt Headedness Gastrointestinal: Denies: Nausea, Vomiting, Abdominal Pain, Diarrhea, Constipation Genitourinary: Denies: Dysuria, Frequency, Incontinence, Retention Hematologic: Denies: Bruising, Bleeding Excessively Musculoskeletal: Denies: Neck Pain, Back Pain, Joint Pain, Muscle Pain, Spasms Neurological: Denies: Weakness, Numbness, Change in speech, Confusion Psych: Reports: Mood Normal; Denies: Depression, Memory Issues Objective Physical Examination General Exam: Positive: Alert, No Acute Distress Eye Exam: Positive: PERRLA, Conjunctiva & lids normal, EOMI; Negative: Sclera icteric ENT Exam: Positive: Atraumatic, Mucous membr. moist/pink, Pharynx Normal Neck Exam: Positive: Supple; Negative: JVD, thyromegaly Chest Exam: Positive: Diminished Heart Exam: Positive: Rate Normal, Regular Rhythm, Normal S1, Normal S2; Negative: Murmurs, Rubs Telemetry: Positive: No significant arrhythmia Abdomen Exam: Positive: Normal bowel sounds, Soft; Negative: Tenderness, Hepatospenomegaly Female Exam: Positive: Nl Ext Genitalia; Negative: Lesions, Discharge, Odor, Tenderness Extremity Exam: Positive: Normal pulses; Negative: Clubbing, Cyanosis, Edema Skin Exam: Positive: Nl turgor and temperature; Negative: Rash, Breakdown Neuro Exam: Positive: Normal Gait, Normal Speech, Cranial Nerves 3-12 NL, Re flexes 2+ Psych Exam: Positive: Mental status NL, Mood NL, Oriented x 3 Assessment /Plan Assessment 1. E. Coli UTI - antibiotics changed to PO based on sensitivities. 2. chronic respiratory failure with hypoxia secondary to COPD - on home oxygen 3.5L /. - continue supplemental oxygen. - on prednisone 10mg daily, continue. - continue inhalers/nebs. 3. DM2 - Hold oral meds. - FSBS AC/HS, SSI coverage. 4. gram positive cocci /clusters - positive in one aerobic bottle in two sets. - repeat sent, likely contaminant. - await identification. Plan/VTE VTE Prophylaxis Ordered?: Yes VS, I&O, 24H, Fishbone Vital Signs/I&O Vital Signs Date Time Temp Pulse Resp B/P (MAP) Pulse Ox O2 Delivery O2 Flow Rate FiO2 11/30/19 11:17 3.0 11/30/19 06:00 98.3 102 19 124/88 (100) 98 Nasal Cannula I&O- Last 24 Hours up to 6 AM 11/30/19 06:00 Intake Total 1010 ml Output Total 0 ml Balance 1010 ml Laboratory Data 24H LABS Laboratory Tests 2 11/29/19 16:43: Bedside Glucose (Misc Panel) 204H 11/29/19 21:14: Bedside Glucose (Misc Panel) 213H 11/30/19 05:52: Nucleated Red Blood Cells % (auto) 0.0, Anion Gap 6L, Glomerular Filtration Rate > 60.0, Calcium Level 8.1L CBC/BMP Laboratory Tests 11/30/19 05:52 Microbiology Microbiology 11/28/19 Blood Culture - Preliminary, Resulted 11/28/19 Blood Culture - Preliminary, Resulted No growth after 24 hours . All specim... 11/28/19 Urine Culture - Final, Complete Escherichia Coli SREEDHAR NIÑO MD Nov 30, 2019 12:02
[2019-11-30 14:00] VITALS: BP 109/62
[2019-11-30] MEDS: CIPROFLOXACIN 250 MG TAB PO SCH (17:38)
[2019-11-30] MEDS: MONTELUKAST 10 MG TAB PO SCH (20:39)
[2019-11-30 22:00] VITALS: BP 127/68
[2019-12-01 06:00] VITALS: BP 128/67
[2019-12-01] MEDS: CIPROFLOXACIN 250 MG TAB PO SCH (06:07)
[2019-12-01 06:31] LABS: HEMATOCRIT 36.2 % (36.0-47.0); HEMOGLOBIN 10.6 g/dl (12.0-15.5); MEAN CORPUSCULAR HEMOGLOBIN 29.2 pg (27.0-33.0); MEAN CORPUSCULAR HGB CONC 29.3 g/dl (32.0-36.5); MEAN CORPUSCULAR VOLUME 99.7 fl (80.0-96.0); PLATELET COUNT, AUTOMATED 233 10^3/uL (150-450); RED BLOOD COUNT 3.63 10^6/uL (4.00-5.40); WHITE BLOOD COUNT 9.5 10^3/uL (4.0-10.0)
[2019-12-01] MEDS: SYMBICORT 160/4.5MCG INHALER 6GM INH SCH (07:28)
[2019-12-01] MEDS: IPRATROPIUM 0.5MG/ALBUTEROL 2.5MG INH SOL UD 3ML (DUONEB)(J7620) NEB PRN ×2 (07:29→07:30)
[2019-12-01] MEDS: HumaLOG INSULIN (NovoLOG) PER UNIT SC SCH ×2 (08:22→12:00)
[2019-12-01] MEDS: predniSONE 20 MG TAB PO SCH (08:23)
[2019-12-01] MEDS: FLUTICASONE PROP 0.05% NASAL SPRAY 16 GM (FLONASE) SCH (08:23)
[2019-12-01] MEDS: DIPYRIDAMOLE/ASA (AGGRENOX) 200MG/25MG CAPCR PO SCH (08:23)
[2019-12-01] MEDS: ENOXAPARIN 30 MG/0.3 ML SYR (J1650) SC SCH (08:23)
[2019-12-01] MEDS: GABAPENTIN 300 MG CAP PO SCH (08:23)
[2019-12-01] MEDS: VENLAFAXINE **XR** 75MG CAPSULE PO SCH (08:23)
[2019-12-01] MEDS ORDERED: CIPR-250 PO (10:38)
--- NOTE | 2019-12-01 10:40 | DS.PDOC ---
Discharge Summary General Date of Admission Nov 28, 2019 at 16:50 Date of Discharge 12/01/2019 Discharge Summary PROCEDURES PERFORMED DURING STAY: none ADMITTING DIAGNOSES: 1. UTI DISCHARGE DIAGNOSES: 1. UTI COMPLICATIONS/CHIEF COMPLAINT: weakness HISTORY OF PRESENT ILLNESS: 77 year old female presents with generalized weakness and lethargy. States symptoms have been steadily progressing over the past few days but worsened yesterday morning. "I was just tired all day and wasn't able to get out of bed until 3pm". Denies fever/chills, cough, chest pain/pressure, n/v/d, abdominal pain, urinary complaints. Presents to the ED due to continuation of symptoms. VSS, afebrile. Labs with WBC 23.9, CT chest negative for infiltrates, flu negative, positive UA. Admission for further management. HOSPITAL COURSE: Patient was admitted and treated for the following conditions: 1. UTI - started on IV ciprofloxacin. - urine cultures positive for E. Coli sensitive to ciprofloxacin. - blood cultures with 1 bottle growing coagulase negative staph. - likely contaminant, repeat cultures sent and will be followed up on discharge. - patient has been cleared for discharge home with outpatient PCP follow up. - she is to continue PO antibiotics to complete a 7 day course. 2. chronic respiratory failure with hypoxia secondary to COPD - on home oxygen 3.5L 12/06. - continue supplemental oxygen. - on prednisone 10mg daily, continue as outpatient. - continue inhalers/nebs. 3. DM2 - restart metformin. DISCHARGE MEDICATIONS: Please see below. ALLERGIES: Please see below. PHYSICAL EXAMINATION ON DISCHARGE: VITAL SIGNS: Please see below. GENERAL: awake, NAD, alert HEENT: NCAT, anicteric sclera, PERRLA NECK: supple, no JVD, no thyromegaly CARDIOVASCULAR EXAMINATION: NS1S2, regular, no murmurs, rubs RESPIRATORY EXAMINATION: CTA b/l, no wheezes, rales, rhonchi ABDOMINAL EXAMINATION: NT/ND, positive bowel sounds x 4, no organomegaly EXTREMITIES: no cyanosis, clubbing, edema SKIN: warm, no rashes NEUROLOGICAL EXAMINATION: AAO x 3, motor 5/5, sensory grossly intact PSYCHIATRIC EXAMINATION: calm, cooperative, normal mood/affect LABORATORY DATA: Please see below. IMAGING: CXR: no active disease. ACTIVITY: as tolerated DIET: cardiac diet DISPOSITION: home DISCHARGE INSTRUCTIONS: 1. please follow up with PCP within 1-2 weeks of discharge. DISCHARGE CONDITION: stable TIME SPENT ON DISCHARGE: Greater than 30 minutes. Vital Signs/I&Os Vital Signs Date Time Temp Pulse Resp B/P (MAP) Pulse Ox O2 Delivery O2 Flow Rate FiO2 12/01/19 09:37 3.0 12/01/19 06:00 97.6 71 22 128/67 (87) 97 Nasal Cannula I&O- Last 24 Hours up to 6 AM 12/01/19 05:59 Intake Total 730 ml Output Total 0 ml Balance 730 ml Laboratory Data Labs 24H Laboratory Tests 2 11/30/19 12:15: Bedside Glucose (Misc Panel) 132H 11/30/19 17:00: Bedside Glucose (Misc Panel) 193H 11/30/19 20:50: Bedside Glucose (Misc Panel) 235H 12/01/19 06:05: Nucleated Red Blood Cells % (auto) 0.0 12/01/19 06:35: Bedside Glucose (Misc Panel) 125H CBC/BMP Laboratory Tests 12/01/19 06:05 FSBS Laboratory Tests Test 11/30/19 12:15 11/30/19 17:00 11/30/19 20:50 12/01/19 06:35 Range/Units Bedside Glucose (Misc Panel) 132 193 235 125 83-110 MG/DL Microbiology Microbiology 11/30/19 Blood Culture, Received Pending 11/30/19 Blood Culture, Received Pending 11/28/19 Blood Culture - Preliminary, Resulted 11/28/19 Blood Culture - Preliminary, Resulted No Growth after 48 hours. All Specime... 11/28/19 Urine Culture - Final, Complete Escherichia Coli Discharge Medications Scheduled Aspirin/Dipyridamole (Aggrenox 25 mg-200 mg Capsule) 1 Ea Capcr, 1 CAP PO BID, (Reported) Budesonide (Budesonide) 0.5 Mg/2 Ml Ampul.neb, 1 INH INH BID, (Reported) Budesonide/Formoterol (Symbicort 160-4.5 Mcg Inhaler) 60 Puff/Inhaler Aers, 2 PUFF INH BID, (Reported) Carboxymethylcellulose Sodium (Refresh Tears) 0.5 % Je, 1 DROP OU DAILY, (Reported) Ciprofloxacin HCl (Cipro) 250 Mg Tablet, 250 MG PO BID@06,18 Take 1 TAB by mouth twice daily until completed. Fluticasone Propionate (Flonase Allergy Relief) 50 Mcg/Act Spr, 2 SPRAYS NA DAILY, (Reported) Gabapentin (Gabapentin) 600 Mg Tab, 600 MG PO TID, (Reported) Metformin HCl (Metformin HCl) 500 Mg Tab, 500 MG PO DAILY, (Reported) Montelukast Sodium (Singulair) 10 Mg Tab, 10 MG PO QHS, (Reported) Prednisone (Prednisone) 10 Mg Tab, 10 MG PO DAILY, (Reported) Risedronate Sodium (Actonel) 150 Mg Tab, 150 MG PO QMONTH, (Reported) TAKES THE FIRST OF THE MONTH Tiotropium [place] (Spiriva) 18 Mcg Cap, 18 MCG INH DAILY, (Reported) Venlafaxine HCl (Effexor Xr) 150 Mg Cap, 150 MG PO DAILY, (Reported) Scheduled PRN Albuterol Sulf (Albuterol Sulfate) 2.5 Mg/3 Ml Nebu, 2.5 MG INH Q4H PRN for SHORTNESS OF BREATH, (Reported) Albuterol Sulfate (Ventolin Hfa) 108 Mcg/Act Aer, 2 PUFFS INH Q4H PRN for SHORTNESS OF BREATH, (Reported) Polyethylene Glycol 3350 (Miralax) 1 Pow Pow, 17 GM PO DAILY PRN for CONSTIPATION, (Reported) Sennosides/Docusate Sodium (Senna-S Tablet) 1 Tab Tab, 1 TAB PO DAILY PRN for CONSTIPATION, (Reported) Allergies Coded Allergies: Penicillins (Verified Allergy, Unknown, 11/12/19) chocolate flavor (Verified Allergy, Unknown, 11/12/19) clarithromycin (Verified Allergy, Unknown, 11/12/19) clavulanic acid (Verified Allergy, Unknown, 11/12/19) ipratropium (Verified Allergy, Unknown, 11/12/19) pseudoephedrine (Verified Allergy, Unknown, 11/12/19) SREEDHAR NIÑO MD Dec 01, 2019 10:40
--- NOTE | 2019-12-01 19:53 | ECGEPIP ---
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
== END 2019-12-01 13:35 | disposition home or self-care (01) | DRG 690 ==
LOC: M ED 12:08 → M ED INP 16:50 → ENRESERV 17:00 → M MSPAV 18:03
PROVIDERS: ADMIT Internal Medicine; ATTEND Internal Medicine
DX: N39.0 Urinary tract infection, site not specified (principal); J96.11 Chronic respiratory failure with hypoxia; E11.9 Type 2 diabetes mellitus without complications; I10 Essential (primary) hypertension; F32.9 Major depressive disorder, single episode, unspecified; F17.200 Nicotine dependence, unspecified, uncomplicated; B96.20 Unspecified Escherichia coli [E. coli] as the cause of diseases classified elsewhere; Z79.82 Long term (current) use of aspirin; Z99.81 Dependence on supplemental oxygen; Z88.0 Allergy status to penicillin; Z88.1 Allergy status to other antibiotic agents; Z86.73 Personal history of transient ischemic attack (TIA), and cerebral infarction without residual deficits; Z88.8 Allergy status to other drugs, medicaments and biological substances; Z79.84 Long term (current) use of oral hypoglycemic drugs; Z79.899 Other long term (current) drug therapy

== ENCOUNTER 2020-01-06 20:51 | Inpatient (IN) | payer MEDICARE, OTHER ==
[~2020-01-06] VITALS: Ht 160 cm; Wt 75.5 kg
[~2020-01-06 20:51] MED LIST changes: +BUDE0.5S6 INH; +CIPR-250 PO; -FLON1SPR; +FLON1SPR NARES
[2020-01-06] MEDS: MONTELUKAST 10 MG TAB PO SCH (21:00)
[2020-01-06] MEDS: HumaLOG INSULIN (NovoLOG) PER UNIT SC SCH (21:00)
[2020-01-06] MEDS: GABAPENTIN 300 MG CAP PO SCH (21:00)
[2020-01-06] MEDS: IPRATROPIUM 0.5MG/ALBUTEROL 2.5MG INH SOL UD 3ML (DUONEB)(J7620) NEB PRN ×3 (21:13→21:51)
[2020-01-06 21:19] LABS: BASO # 0.1 10^3/uL (0.0-0.2); BASO % 0.7 % (0.0-1.0); EOS # 0.2 10^3/uL (0.0-0.5); EOS % 1.3 % (0.0-3.0); HEMATOCRIT 42.7 % (36.0-47.0); HEMOGLOBIN 12.9 g/dl (12.0-15.5); LYMPH # 2.9 10^3/uL (1.5-5.0); LYMPH % 21.7 % (24.0-44.0); MEAN CORPUSCULAR HEMOGLOBIN 29.8 pg (27.0-33.0); MEAN CORPUSCULAR HGB CONC 30.2 g/dl (32.0-36.5); MEAN CORPUSCULAR VOLUME 98.6 fl (80.0-96.0); MONO % 7.4 % (0.0-5.0); NEUTROPHILS # 9.2 10^3/uL (1.5-8.5); NEUTROPHILS % 68.4 % (36.0-66.0); PLATELET COUNT, AUTOMATED 310 10^3/uL (150-450); RED BLOOD COUNT 4.33 10^6/uL (4.00-5.40); WHITE BLOOD COUNT 13.4 10^3/uL (4.0-10.0)
[2020-01-06 21:43] LABS: CALCIUM LEVEL 9.2 MG/DL (8.8-10.2); CK-MB VALUE MASS 3.2 NG/ML (<3.6); CREATININE FOR GFR 1.25 MG/DL (0.55-1.30); GLOMERULAR FILTRATION RATE 44.2 (>39); MB/CK RELATIVE INDEX 4.16 (< OR =4); POTASSIUM SERUM 4.4 MEQ/L (3.5-5.1); TROPONIN I 0.1 NG/ML (< 0.10)
[2020-01-07] MEDS ORDERED: GABA600T4 PO (00:49)
[2020-01-07] MEDS ORDERED: DEXTROSE 50% 50 ML SYRINGE IV PRN (01:45)
[2020-01-07] MEDS ORDERED: MIRALAX *UNIT DOSE* 17GM PACKET PO PRN (01:45)
[2020-01-07] MEDS ORDERED: GLUCAGON FOR INJ 1 MG VIAL (J1610) SC PRN (01:45)
[2020-01-07] MEDS ORDERED: ACETAMINOPHEN TAB 650MG DOSE (2X325MG) PO PRN (01:45)
[2020-01-07] MEDS ORDERED: SENOKOT S TAB PO PRN (01:45)
[2020-01-07] MEDS ORDERED: GLUCOSE 4 GM CHEW TABLET PO PRN (01:45)
[2020-01-07] MEDS: ALBUTEROL SULFATE 2.5 MG/0.5 ML INH NEB SOLN NEB SCH ×4 (02:00→20:37)
[2020-01-07] MEDS ORDERED: IPRATROPIUM 0.5MG/ALBUTEROL 2.5MG INH SOL UD 3ML (DUONEB)(J7620) NEB SCH (02:00)
[2020-01-07] MEDS: ALBUTEROL SULFATE 2.5 MG/0.5 ML INH NEB SOLN NEB PRN ×2 (02:20→11:34)
--- NOTE | 2020-01-07 02:45 | HPEPDOC ---
General Date of Admission Jan 06, 2020 at 20:52 Date of Service: Jan 06, 2020 Attending Physician: JUSTICE SWANN DO Chief Complaint The patient is a 79-year-old female admitted with a reason for visit of Copd Exacerbation. Source: Patient History of Present Illness Mireya is a 79-year-old female who presented to the emergency department via EMS for increasing shortness of breath and labored breathing. She states that she was at dinner at her son's house, and suddenly had worsening shortness of breath when she stood up from the table after eating. She endorses that she had been having difficulty breathing all evening. She did not have any of her rescue inhalers with her, and as she tried to make her way out the door to her home, she told her that she didn't think she was going to make it and to call EMS. She does follow with Dr. Davidson for COPD, and is on 3.5 L of oxygen at home. She reports that she used to smoke, at least one pack per day for 40 years, however she quit 6 years ago. She denies any fevers, chills, or change in sputum production. She denies any new sick contacts Home Medications Scheduled Aspirin/Dipyridamole (Aggrenox 25 mg-200 mg Capsule) 1 Ea Capcr, 1 CAP PO BID, (Reported) Budesonide (Budesonide) 0.5 Mg/2 Ml Ampul.neb, 1 VIAL INH BID, (Reported) Budesonide/Formoterol (Symbicort 160-4.5 Mcg Inhaler) 60 Puff/Inhaler Aers, 2 PUFF INH BID, (Reported) Carboxymethylcellulose Sodium (Refresh Tears) 0.5 % Je, 1 DROP OU DAILY, (Reported) Fluticasone Propionate (Flonase Allergy Relief) 50 Mcg/Act Spr, 2 SPRAYS NARES DAILY, (Reported) Gabapentin (Gabapentin) 600 Mg Tab, 600 MG PO DAILY, (Reported) Gabapentin (Gabapentin) 600 Mg Tablet, 1,200 MG PO QHS, (Reported) Metformin HCl (Metformin HCl) 500 Mg Tab, 500 MG PO DAILY, (Reported) HAD APPOINTMENT WITH PCP AND WAS TOLD TO START BID 01/08/20 Montelukast Sodium (Singulair) 10 Mg Tab, 10 MG PO QHS, (Reported) Prednisone (Prednisone) 10 Mg Tab, 10 MG PO DAILY, (Reported) Risedronate Sodium (Actonel) 150 Mg Tab, 150 MG PO QMONTH, (Reported) TAKES THE FIRST OF THE MONTH Tiotropium [place] (Spiriva) 18 Mcg Cap, 1 PUFF INH DAILY, (Reported) Venlafaxine HCl (Effexor Xr) 150 Mg Cap, 150 MG PO DAILY, (Reported) Scheduled PRN Albuterol Sulf (Albuterol Sulfate) 2.5 Mg/3 Ml Nebu, 1 VIAL INH Q4H PRN for SHORTNESS OF BREATH, (Reported) Albuterol Sulfate (Ventolin Hfa) 108 Mcg/Act Aer, 2 PUFFS INH Q4H PRN for SHORTNESS OF BREATH, (Reported) Polyethylene Glycol 3350 (Miralax) 1 Pow Pow, 17 GM PO DAILY PRN for CONSTIPATION, (Reported) Sennosides/Docusate Sodium (Senna-S Tablet) 1 Tab Tab, 1 TAB PO DAILY PRN for CONSTIPATION, (Reported) Allergies Coded Allergies: Penicillins (Verified Allergy, Unknown, 11/12/19) chocolate flavor (Verified Allergy, Unknown, 11/12/19) clarithromycin (Verified Allergy, Unknown, 11/12/19) clavulanic acid (Verified Allergy, Unknown, 11/12/19) ipratropium (Verified Allergy, Unknown, 11/12/19) pseudoephedrine (Verified Allergy, Unknown, 11/12/19) Past Medical History Medical History History of CVA COPD on home oxygen 3.5 L 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 She denies drug use or alcohol. She has 2 dogs, a pit bull and a chi- weenie mix. She denies any recent travel or any recent sick contacts A-FIB/CHADSVASC A-FIB History Current/History of A-Fib/PAF?: No Review of Systems Other systems Constitutional: Denies weight loss, waking, fevers, chills, or night sweats Eyes: Denies visual changes, double vision, blurry vision, floaters, or feeling like a curtain pulled down. Ear nose throat: Denies runny nose, epistaxis, sinus pain, tinnitus, sore throat, or odynophasia Cardiovascular: Denies chest pain, paroxysmal nocturnal dyspnea, orthopnea, edema, or palpitations. Respiratory: Denies cough, sputum production, wheezes, or hemoptysis. Positive for worsening shortness of breath as described above Gastrointestinal: Denies abdominal pain, difficulty swallowing, loss of appetite, nausea, vomiting, diarrhea, constipation, obstipation, hematemesis, hematochezia, melena, or tenesmus Musculoskeletal: Denies joint swelling, decreased range of motion, crepitus, or new arthritis Integumentary: Denies pruritus, rashes, or lesions Neuro: Denies any changes to sight/smell/hearing/taste, seizures, faint, headaches, paresthesias, anesthesias Psychiatric: Denies depression, anxiety, paranoia, anhedonia, or episodes of henri Endocrine: Denies diarrhea, increased appetite, tremor, palpitations, constipation, dry skin, polydipsia, polyuria, polyphagia Hematologic: Denies any anemia, purpura, or petechiae Lymphatic: Denies any new lumps or bumps anywhere Physical Examination General Exam: Positive: Alert, Cooperative, No Acute Distress Eye Exam: Positive: PERRLA, Conjunctiva & lids normal, EOMI, Sclera icteric ENT Exam: Positive: Atraumatic, Mucous membr. moist/pink, Pharynx Normal Neck Exam: Positive: Supple; Negative: JVD, thyromegaly Chest Exam: Negative: Clear to auscultation, Normal air movement (diminished lung sounds bilaterally with fine expiratory wheezes), Rales, Rhonchi Heart Exam: Positive: Rate Normal, Regular Rhythm; Negative: Normal S2 (fixed splitting of S2 heard best to the left of the sternum at the fifth intercostal space) Telemetry: Positive: No significant arrhythmia Abdomen Exam: Positive: Normal bowel sounds, Soft; Negative: Tenderness Extremity Exam: Positive: Normal pulses; Negative: Clubbing, Cyanosis, Edema Skin Exam: Positive: Nl turgor and temperature; Negative: Rash, Breakdown Neuro Exam: Positive: Normal Speech, Strength at 5/5 X4 ext, Sensation Intact, Cranial Nerves 3-12 NL Psych Exam: Positive: Mental status NL, Mood NL Vital Signs Vital Signs Date Time Temp Pulse Resp B/P (MAP) Pulse Ox O2 Delivery O2 Flow Rate FiO2 01/07/20 02:19 98.1 157/70 (99) 95 01/07/20 02:15 114 01/06/20 21:56 Nasal Cannula 4.0 01/06/20 20:58 20 Laboratory Data Labs 24H Laboratory Tests 2 01/06/20 21:09: Immature Granulocyte % (Auto) 0.5, Neutrophils (%) (Auto) 68.4H, Lymphocytes (%) (Auto) 21.7L, Monocytes (%) (Auto) 7.4H, Eosinophils (%) (Auto) 1.3, Basophils (%) (Auto) 0.7, Neutrophils # (Auto) 9.2H, Lymphocytes # (Auto) 2.9, Monocytes # (Auto) 1.0H, Eosinophils # (Auto) 0.2, Basophils # (Auto) 0.1, Nucleated Red Blood Cells % (auto) 0.0, POC pH (Misc Panel) 7.342L, POC Base Excess (Misc Panel) 13.0H, POC Saturated Percent O2 (Misc) 100H, POC pO2 (Misc Panel) 261.0H, POC pCO2 (Misc Panel) 71.3*H, POC HCO3 (Misc Panel) 38.7H, POC Total CO2 (Misc Panel) 41.0H, Anion Gap 2L, Glomerular Filtration Rate 44.2, Calcium Level 9.2, Total Creatine Kinase 77, Creatine Kinase MB 3.2, Creatine Kinase MB Relative Index 4.16H, Troponin I 0.10, NE-Krg-S-Type Natriuretic Peptide 376 01/06/20 21:12: Lactic Acid Level 1.5 01/06/20 21:18: POC Total CO2 (Misc Panel) 36.0H, POC Glucose (Misc Panel) 159H, POC Sodium (Misc Panel) 144, POC Potassium (Misc Panel) 4.3, POC Chloride (Misc Panel) 101, POC Blood Urea Nitrogen (Misc Panel 29H, POC Ionized Calcium (Misc Panel) 4.6, POC Creatinine (Misc Panel) 1.3, POC Hematocrit (Misc Panel) 40.0 CBC/BMP Laboratory Tests 01/06/20 21:09 Microbiology Microbiology 01/06/20 Blood Culture, Received Pending 01/06/20 Respiratory Virus Panel (PCR) (LETY) - Final, Complete 01/06/20 Blood Culture, Received Pending Assessment/Plan Assessment: 79-year-old female with history of COPD presenting for an acute exacerbation Plan: 1. COPD exacerbation. Oxygen titration orders to between 88-92%, Solu-Medrol, and scheduled DuoNeb's. Will make sure her Singulair and home Advair are ordered. No signs of infection or sputum changes so we will not give her antibiotics 2. Diabetes with neuropathy. Consistent carbohydrate/COPD diet. Sliding scale insulin with hypoglycemic protocol and gabapentin 3. GERD: Continue with home Protonix 4. Depression: Continue home venlafaxine DVT prophylaxis: Heparin CODE STATUS: DNR/trial of intubation Disposition: Observation as we expect less than 2 midnights Plan / VTE VTE Prophylaxis Ordered?: Yes GME ATTESTATION GME ATTESTATION My faculty preceptor for this patient encounter was physically present during the encounter and was fully available. All aspects of the patient interview, examination, medical decision making process, and medical care plan development were reviewed and approved by the faculty preceptor. The faculty preceptor is aware and concurs with the plan as stated in the body of this note and will attest to such by his/her cosignature. VALDEZ JOEL D.O. Jan 07, 2020 02:45
[2020-01-07 03:03] VITALS: BP 130/76
[2020-01-07] MEDS ORDERED: ALBUTEROL SULFATE 2.5 MG/0.5 ML INH NEB SOLN NEB SCH (04:00)
[2020-01-07] MEDS: methylPREDNISolone INJ 125 MG/2 ML VIAL (J2930) IV SCH ×3 (04:46→17:18)
[2020-01-07] MEDS: HEPARIN SOD (PORCINE) 5000 UNITS/ML VIAL (J1644 PER 1000UNITS) SC SCH ×2 (04:46→17:19)
[2020-01-07 06:00] VITALS: BP 125/87
--- NOTE | 2020-01-07 07:44 | REP ---
The clinical: Cough and dyspnea. Comparison: 11/12/2019. Findings: Stable cardiomegaly and diffuse chronic interstitial changes again noted. No obvious focal consolidation or effusion. Skeletal structures stable. Impression: Cardiomegaly and chronic changes. No focal consolidation or effusion. Electronically Signed by Ramírez Pickard MD 01/07/2020 07:35 A
[2020-01-07] MEDS: ADVAIR HFA 230/21MCG INHALER INH SCH ×2 (07:45→20:00)
[2020-01-07] MEDS: PANTOPRAZOLE 40MG TAB (PROTONIX) PO SCH (08:19)
[2020-01-07] MEDS: VENLAFAXINE **XR** 75MG CAPSULE PO SCH (08:19)
[2020-01-07] MEDS: HumaLOG INSULIN (NovoLOG) PER UNIT SC SCH ×4 (08:20→21:00)
[2020-01-07] MEDS: GABAPENTIN 300 MG CAP PO SCH ×2 (08:20→20:58)
[2020-01-07] MEDS ORDERED: PREVNAR 13 VACCINE SYRINGE (CPT CODE:90670) IM ONE (09:00)
--- NOTE | 2020-01-07 20:18 | ECGEPIP ---
[facility] - ED Test Date: 2020-01-06 Pat Name: FARSHAD RODRIGUEZ Department: Room: [place] [address] Gender: Female Special Effects Person: colton : 1940 Requested By: JEREMÍAS Snyder Order Number: [id number] Reading MD: Nedra Lloyd Measurements Intervals [place] Rate: 106 P: 70 NE: 128 QRS: 52 QRSD: 82 T: 21 QT: 325 QTc: 433 Interpretive Statements SINUS TACHYCARDIA VOLTAGE CRITERIA FOR LVH NONSPECIFIC T-WAVE ABNORMALITY BASELINE ARTIFACT LIMITS INTERPRETATION INCREASED RATE 12/01/19 Electronically Signed on 01-07-2020 20:18:23 EST by Nedra Lloyd
[2020-01-07 20:49] VITALS: BP 124/70
[2020-01-07] MEDS: MONTELUKAST 10 MG TAB PO SCH (20:58)
[2020-01-08] MEDS: methylPREDNISolone INJ 125 MG/2 ML VIAL (J2930) IV SCH ×3 (00:52→17:57)
[2020-01-08] MEDS: ALBUTEROL SULFATE 2.5 MG/0.5 ML INH NEB SOLN NEB SCH ×4 (02:00→20:00)
[2020-01-08] MEDS: HEPARIN SOD (PORCINE) 5000 UNITS/ML VIAL (J1644 PER 1000UNITS) SC SCH ×2 (05:33→17:58)
[2020-01-08 05:59] VITALS: BP 148/85
[2020-01-08 06:55] LABS: HEMATOCRIT 38.9 % (36.0-47.0); HEMOGLOBIN 11.8 g/dl (12.0-15.5); MEAN CORPUSCULAR HEMOGLOBIN 29.4 pg (27.0-33.0); MEAN CORPUSCULAR HGB CONC 30.3 g/dl (32.0-36.5); MEAN CORPUSCULAR VOLUME 96.8 fl (80.0-96.0); PLATELET COUNT, AUTOMATED 266 10^3/uL (150-450); RED BLOOD COUNT 4.02 10^6/uL (4.00-5.40); WHITE BLOOD COUNT 18.2 10^3/uL (4.0-10.0)
[2020-01-08 07:14] LABS: BLOOD UREA NITROGEN 37 MG/DL (7-18); CALCIUM LEVEL 8.4 MG/DL (8.8-10.2); CARBON DIOXIDE LEVEL 34 MEQ/L (21-32); CHLORIDE LEVEL 104 MEQ/L (98-107); CREATININE FOR GFR 0.84 MG/DL (0.55-1.30); GLOMERULAR FILTRATION RATE > 60.0 (>39); GLUCOSE, FASTING 214 MG/DL (70-100); MAGNESIUM LEVEL 2.4 MG/DL (1.8-2.4); POTASSIUM SERUM 4.4 MEQ/L (3.5-5.1); SODIUM LEVEL 140 MEQ/L (136-145)
[2020-01-08] MEDS: ADVAIR HFA 230/21MCG INHALER INH SCH ×2 (07:32→20:14)
[2020-01-08] MEDS: HumaLOG INSULIN (NovoLOG) PER UNIT SC SCH ×4 (08:31→21:00)
[2020-01-08] MEDS: PANTOPRAZOLE 40MG TAB (PROTONIX) PO SCH (08:32)
[2020-01-08] MEDS: GABAPENTIN 300 MG CAP PO SCH ×2 (08:32→21:39)
[2020-01-08] MEDS: VENLAFAXINE **XR** 75MG CAPSULE PO SCH (08:32)
--- NOTE | 2020-01-08 10:58 | IPNPDOC ---
Subjective Date Seen The patient was seen on 01/08/20. Subjective Chief Complaint/HPI Seen and examined at bedside, states feels much better today, slept ok. Denies fever/chills, N/V/D, abdominal pain. General: Reports: Normal Appetite; Denies: Chills, Night Sweats, Fatigue, Malaise Constitutional: Denies: Chills, Fever, Night Sweats Eyes: Denies: Pain, Vision change ENT: Denies: Head Aches, Ear Pain, Dysphagia Skin: Denies: Rash, Lesions, Breakdown Pulmonary: Reports: Dyspnea, Cough, Pleuritic Chest Pain, Other Symptoms Cardiovascular: Denies: Chest Pain, Palpitations, Orthopnea, Paroxysmal Noc. Dyspnea, Lt Headedness Gastrointestinal: Denies: Nausea, Vomiting, Abdominal Pain, Diarrhea, Constipation Genitourinary: Denies: Dysuria, Frequency, Incontinence, Retention Hematologic: Denies: Bruising, Bleeding Excessively Musculoskeletal: Denies: Neck Pain, Back Pain, Joint Pain, Muscle Pain, Spasms Neurological: Denies: Weakness, Numbness, Change in speech, Confusion Psych: Reports: Mood Normal; Denies: Depression, Memory Issues Objective Physical Examination General Exam: Positive: Alert, Cooperative, No Acute Distress Eye Exam: Positive: PERRLA, Conjunctiva & lids normal, EOMI, Sclera icteric ENT Exam: Positive: Atraumatic, Mucous membr. moist/pink, Pharynx Normal Neck Exam: Positive: Supple; Negative: JVD, thyromegaly Chest Exam: Positive: Normal air movement (diminished lung sounds bilaterally); Negative: Clear to auscultation, Rales, Rhonchi Heart Exam: Positive: Rate Normal, Regular Rhythm; Negative: Normal S2 (fixed splitting of S2 heard best to the left of the sternum at the fifth intercostal space) Telemetry: Positive: No significant arrhythmia Abdomen Exam: Positive: Normal bowel sounds, Soft; Negative: Tenderness Female Exam: Positive: Nl Ext Genitalia; Negative: Lesions, Discharge, Odor, Tenderness Extremity Exam: Positive: Normal pulses; Negative: Clubbing, Cyanosis, Edema Skin Exam: Positive: Nl turgor and temperature; Negative: Rash, Breakdown Neuro Exam: Positive: Normal Speech, Strength at 5/5 X4 ext, Sensation Intact, Cranial Nerves 3-12 NL Psych Exam: Positive: Mental status NL, Mood NL Assessment /Plan Assessment 1. COPD exacerbation - continue IV steroids, duonebs prn. - Oxygen titration orders to between 88-92%. - continue spiriva/advair. 2. DM2 - FSBS/SSI coverage. 3. diabetic neuropathy - continue neurontin. 4. GERD - continue protonix. 5. depression - continue venlafaxine. Plan/VTE VTE Prophylaxis Ordered?: Yes VS, I&O, 24H, Fishbone Vital Signs/I&O Vital Signs Date Time Temp Pulse Resp B/P (MAP) Pulse Ox O2 Delivery O2 Flow Rate FiO2 01/08/20 05:59 97.7 81 15 148/85 (106) 96 Nasal Cannula 3.5 I&O- Last 24 Hours up to 6 AM 01/08/20 06:00 Intake Total 1340 ml Output Total 0 ml Balance 1340 ml Laboratory Data 24H LABS Laboratory Tests 2 01/07/20 11:24: Bedside Glucose (Misc Panel) 189H 01/07/20 16:11: Bedside Glucose (Misc Panel) 238H 01/07/20 20:48: Bedside Glucose (Misc Panel) 180H 01/08/20 06:36: Nucleated Red Blood Cells % (auto) 0.0, Anion Gap 2L, Glomerular Filtration Rate > 60.0, Calcium Level 8.4L, Magnesium Level 2.4 CBC/BMP Laboratory Tests 01/08/20 06:36 Microbiology Microbiology 01/06/20 Blood Culture - Preliminary, Resulted No growth after 24 hours . All specim... 01/06/20 Respiratory Virus Panel (PCR) ([facility]) - Final, Complete 01/06/20 Blood Culture - Preliminary, Resulted No growth after 24 hours . All specim... SREEDHAR NIÑO MD Jan 08, 2020 10:58
[2020-01-08 14:55] VITALS: BP 110/61
[2020-01-08] MEDS: MONTELUKAST 10 MG TAB PO SCH (21:39)
[2020-01-08 22:00] VITALS: BP 145/76
[2020-01-09] MEDS: methylPREDNISolone INJ 125 MG/2 ML VIAL (J2930) IV SCH ×2 (00:50→08:39)
[2020-01-09] MEDS: ALBUTEROL SULFATE 2.5 MG/0.5 ML INH NEB SOLN NEB SCH ×2 (01:01→07:28)
[2020-01-09] MEDS: HEPARIN SOD (PORCINE) 5000 UNITS/ML VIAL (J1644 PER 1000UNITS) SC SCH (05:45)
[2020-01-09 06:00] VITALS: BP 144/76
[2020-01-09 07:27] LABS: HEMATOCRIT 37.6 % (36.0-47.0); HEMOGLOBIN 11.3 g/dl (12.0-15.5); MEAN CORPUSCULAR HEMOGLOBIN 29.4 pg (27.0-33.0); MEAN CORPUSCULAR HGB CONC 30.1 g/dl (32.0-36.5); MEAN CORPUSCULAR VOLUME 97.9 fl (80.0-96.0); PLATELET COUNT, AUTOMATED 277 10^3/uL (150-450); RED BLOOD COUNT 3.84 10^6/uL (4.00-5.40); WHITE BLOOD COUNT 17.9 10^3/uL (4.0-10.0)
[2020-01-09] MEDS: ADVAIR HFA 230/21MCG INHALER INH SCH (07:28)
[2020-01-09 07:49] LABS: BLOOD UREA NITROGEN 43 MG/DL (7-18); CALCIUM LEVEL 8.2 MG/DL (8.8-10.2); CARBON DIOXIDE LEVEL 36 MEQ/L (21-32); CHLORIDE LEVEL 103 MEQ/L (98-107); GLOMERULAR FILTRATION RATE > 60.0 (>39); GLUCOSE, FASTING 212 MG/DL (70-100); POTASSIUM SERUM 4.5 MEQ/L (3.5-5.1); SODIUM LEVEL 140 MEQ/L (136-145)
[2020-01-09] MEDS: VENLAFAXINE **XR** 75MG CAPSULE PO SCH (08:38)
[2020-01-09] MEDS: PANTOPRAZOLE 40MG TAB (PROTONIX) PO SCH (08:38)
[2020-01-09] MEDS: GABAPENTIN 300 MG CAP PO SCH (08:38)
[2020-01-09] MEDS: HumaLOG INSULIN (NovoLOG) PER UNIT SC SCH ×2 (08:39→12:00)
--- NOTE | 2020-01-09 10:48 | DS.PDOC ---
Discharge Summary General Date of Admission Jan 08, 2020 at 13:50 Date of Discharge 01/09/20 Discharge Summary PROCEDURES PERFORMED DURING STAY: [None]. ADMITTING DIAGNOSES: 1. acute on chronic hypoxic/hypercapnic respiratory failure secondary to COPD exacerbation DISCHARGE DIAGNOSES: 1. acute on chronic hypoxic/hypercapnic respiratory failure secondary to COPD exacerbation COMPLICATIONS/CHIEF COMPLAINT: COPD exacerbation. HISTORY OF PRESENT ILLNESS: Please refer to dated 01/07/20 for detailed HPI. HOSPITAL COURSE: Patient was admitted and treated for the following conditions: 1. acute on chronic hypoxic/hypercapnic respiratory failure secondary to COPD exacerbation - started on IV solumedrol, duonebs, supplemental oxygen. - patients symptoms improved significantly, states she feels close to baseline. - IV steroids switched to PO with taper. - patient stable for discharge to home. DISCHARGE MEDICATIONS: Please see below. ALLERGIES: Please see below. PHYSICAL EXAMINATION ON DISCHARGE: VITAL SIGNS: Please see below. GENERAL: AAO x 3, NAD. HEENT: NCAT, anicteric sclera, PERRLA/EOMI NECK: supple, no JVD, no thyromegaly CARDIOVASCULAR EXAMINATION: NS1S2, regular, no murmurs/rubs RESPIRATORY EXAMINATION: CTA b/l, decreased breath sounds b/l ABDOMINAL EXAMINATION: NT/ND, positive bowel sounds, no masses EXTREMITIES: no cyanosis, clubbing, edema SKIN: warm, no rashes, NEUROLOGICAL EXAMINATION: AAO x 3, no motor/sensory deficits, PSYCHIATRIC EXAMINATION: calm, cooperative, normal affectis. LABORATORY DATA: Please see below. IMAGING: CXR 01/07/20 The clinical: Cough and dyspnea. Comparison: 11/12/2019. Findings: Stable cardiomegaly and diffuse chronic interstitial changes again noted. No obvious focal consolidation or effusion. Skeletal structures stable. Impression: Cardiomegaly and chronic changes. No focal consolidation or effusion. PROGNOSIS: good ACTIVITY: [As tolerated]. DIET: low fat/low cholesterol DISCHARGE PLAN: home DISPOSITION: home DISCHARGE INSTRUCTIONS: 1. PCP follow up on discharge. ITEMS TO FOLLOWUP ON ON OUTPATIENT: 1. none DISCHARGE CONDITION: [Stable]. TIME SPENT ON DISCHARGE: Greater than [30] minutes. Vital Signs/I&Os Vital Signs Date Time Temp Pulse Resp B/P (MAP) Pulse Ox O2 Delivery O2 Flow Rate FiO2 01/09/20 09:00 2.0 01/09/20 06:00 97.4 81 20 144/76 (98) 99 01/08/20 22:00 Nasal Cannula 98 I&O- Last 24 Hours up to 6 AM 01/09/20 06:00 Intake Total 1020 ml Output Total 350 ml Balance 670 ml Laboratory Data Labs 24H Laboratory Tests 2 01/08/20 12:07: Bedside Glucose (Misc Panel) 182H 01/08/20 16:51: Bedside Glucose (Misc Panel) 191H 01/08/20 21:04: Bedside Glucose (Misc Panel) 244H 01/09/20 07:08: Nucleated Red Blood Cells % (auto) 0.0, Anion Gap 1L, Glomerular Filtration Rate > 60.0, Calcium Level 8.2L CBC/BMP Laboratory Tests 01/09/20 07:08 FSBS Laboratory Tests Test 01/08/20 12:07 01/08/20 16:51 01/08/20 21:04 Range/Units Bedside Glucose (Misc Panel) 182 191 244 83-110 MG/DL Microbiology Microbiology 01/06/20 Blood Culture - Preliminary, Resulted No Growth after 48 hours. All Specime... 01/06/20 Respiratory Virus Panel (PCR) ([facility]) - Final, Complete 01/06/20 Blood Culture - Preliminary, Resulted No Growth after 48 hours. All Specime... Discharge Medications Scheduled Aspirin/Dipyridamole (Aggrenox 25 mg-200 mg Capsule) 1 Ea Capcr, 1 CAP PO BID, (Reported) Budesonide (Budesonide) 0.5 Mg/2 Ml Ampul.neb, 1 VIAL INH BID, (Reported) Budesonide/Formoterol (Symbicort 160-4.5 Mcg Inhaler) 60 Puff/Inhaler Aers, 2 PUFF INH BID, (Reported) Carboxymethylcellulose Sodium (Refresh Tears) 0.5 % Je, 1 DROP OU DAILY, (Reported) Fluticasone Propionate (Flonase Allergy Relief) 50 Mcg/Act Spr, 2 SPRAYS NARES DAILY, (Reported) Gabapentin (Gabapentin) 600 Mg Tab, 600 MG PO DAILY, (Reported) Gabapentin (Gabapentin) 600 Mg Tablet, 1,200 MG PO QHS, (Reported) Metformin HCl (Metformin HCl) 500 Mg Tab, 500 MG PO DAILY, (Reported) HAD APPOINTMENT WITH PCP AND WAS TOLD TO START BID 01/08/20 Montelukast Sodium (Singulair) 10 Mg Tab, 10 MG PO QHS, (Reported) Prednisone (Prednisone) 10 Mg Tab, 10 MG PO DAILY, (Reported) Prednisone (Prednisone) 10 Mg Tablet, 10 MG PO DAILY Take 4 TABS daily for 3 days then 3 TABS daily for 3 days then 2 TABS daily for 3 days then 1 TAB daily for 3 days. Risedronate Sodium (Actonel) 150 Mg Tab, 150 MG PO QMONTH, (Reported) TAKES THE FIRST OF THE MONTH Tiotropium [place] (Spiriva) 18 Mcg Cap, 1 PUFF INH DAILY, (Reported) Venlafaxine HCl (Effexor Xr) 150 Mg Cap, 150 MG PO DAILY, (Reported) Scheduled PRN Albuterol Sulf (Albuterol Sulfate) 2.5 Mg/3 Ml Nebu, 1 VIAL INH Q4H PRN for SHORTNESS OF BREATH, (Reported) Albuterol Sulfate (Ventolin Hfa) 108 Mcg/Act Aer, 2 PUFFS INH Q4H PRN for SHORTNESS OF BREATH, (Reported) Polyethylene Glycol 3350 (Miralax) 1 Pow Pow, 17 GM PO DAILY PRN for CONSTIPATION, (Reported) Sennosides/Docusate Sodium (Senna-S Tablet) 1 Tab Tab, 1 TAB PO DAILY PRN for CONSTIPATION, (Reported) Allergies Coded Allergies: Penicillins (Verified Allergy, Unknown, 11/12/19) chocolate flavor (Verified Allergy, Unknown, 11/12/19) clarithromycin (Verified Allergy, Unknown, 11/12/19) clavulanic acid (Verified Allergy, Unknown, 11/12/19) ipratropium (Verified Allergy, Unknown, 11/12/19) pseudoephedrine (Verified Allergy, Unknown, 11/12/19) SREEDHAR NIÑO MD Jan 09, 2020 10:48
[2020-01-09] MEDS ORDERED: PRED10TA2 PO (11:02)
== END 2020-01-09 12:34 | disposition home or self-care (01) | DRG 189 ==
LOC: EDBD 20:51 → M ED 20:51 → M ED INP 20:52 → ENRESERVDT 01-07 01:57 → ENRESERVTM 01-07 01:57 → M MS5PR 01-07 03:00 → OBSVTOIN 01-08 13:50
PROVIDERS: ADMIT Internal Medicine; ATTEND Internal Medicine
DX: J96.21 Acute and chronic respiratory failure with hypoxia (principal); J44.1 Chronic obstructive pulmonary disease with (acute) exacerbation; J96.22 Acute and chronic respiratory failure with hypercapnia; Z99.81 Dependence on supplemental oxygen; Z87.891 Personal history of nicotine dependence; Z79.82 Long term (current) use of aspirin; Z79.899 Other long term (current) drug therapy; Z88.0 Allergy status to penicillin; Z88.8 Allergy status to other drugs, medicaments and biological substances; Z88.1 Allergy status to other antibiotic agents; Z91.018 Allergy to other foods; Z86.73 Personal history of transient ischemic attack (TIA), and cerebral infarction without residual deficits; E11.42 Type 2 diabetes mellitus with diabetic polyneuropathy; I10 Essential (primary) hypertension; M81.0 Age-related osteoporosis without current pathological fracture; Z90.79 Acquired absence of other genital organ(s); Z98.41 Cataract extraction status, right eye; Z98.42 Cataract extraction status, left eye; K21.9 Gastro-esophageal reflux disease without esophagitis; F32.9 Major depressive disorder, single episode, unspecified

== ENCOUNTER 2020-05-25 17:07 | Inpatient (IN) | payer MEDICARE, OTHER ==
[~2020-05-25] VITALS: Ht 160 cm; Wt 71.7 kg
[2020-05-25] MEDS ORDERED: HYDROCORTISONE 100 MG/2 ML VIAL (J1720 PER 1) IV ONE (17:30)
[2020-05-25] MEDS: ALBUTEROL 90 MCG/ACT 8GM HFA INHALER INH SCH ×2 (17:58→20:05)
[2020-05-25 18:28] LABS: BASO % 0.3 % (0.0-1.0); EOS % 0.4 % (0.0-3.0); HEMATOCRIT 36.2 % (36.0-47.0); HEMOGLOBIN 10.9 g/dl (12.0-15.5); LYMPH # 0.8 10^3/uL (1.5-5.0); LYMPH % 8.3 % (24.0-44.0); MEAN CORPUSCULAR HEMOGLOBIN 29.8 pg (27.0-33.0); MEAN CORPUSCULAR HGB CONC 30.1 g/dl (32.0-36.5); MEAN CORPUSCULAR VOLUME 98.9 fl (80.0-96.0); MONO # 0.8 10^3/uL (0.0-0.8); MONO % 8.1 % (0.0-5.0); NEUTROPHILS # 8.2 10^3/uL (1.5-8.5); NEUTROPHILS % 82.5 % (36.0-66.0); PLATELET COUNT, AUTOMATED 282 10^3/uL (150-450); RED BLOOD COUNT 3.66 10^6/uL (4.00-5.40)
[2020-05-25 18:37] LABS: BILIRUBIN,DIRECT 0.3 MG/DL (0.0-0.2); BILIRUBIN,TOTAL 0.7 MG/DL (0.2-1.0); THYROID STIMULATING HORMONE 0.958 uIU/ML (0.358-3.740)
[2020-05-25] MEDS ORDERED: FUROSEMIDE 20MG/2ML VIAL (J1940) IV ONE (19:00)
[2020-05-25] MEDS ORDERED: ACETAMINOPHEN TAB 650MG DOSE (2X325MG) PO PRN (20:45)
[2020-05-25] MEDS ORDERED: MOM 30ML SUSPENSION UDC PO PRN (20:45)
[2020-05-25] MEDS ORDERED: MAALOX 30 ML SUSP *UDC PO PRN (20:45)
[2020-05-25] MEDS ORDERED: ALBUTEROL SULFATE 2.5 MG/0.5 ML INH NEB SOLN NEB PRN (20:45)
--- NOTE | 2020-05-25 20:51 | HPEPDOC ---
[facility] Medical History & Physical Date of Admission May 25, 2020 Date of Service: May 25, 2020 Other Provider Bryce Joyce Attending Physician: MEE ALLEN MD History and Physical TIME OF SERVICE: 9:05 PM CHIEF COMPLAINT: "Not feeling well" HISTORY OF PRESENT ILLNESS: This is a 79-year-old female who was last admitted in December 2019 for management of acute on chronic respiratory failure secondary to COPD. She presented with the chief complaint of not feeling well. Specifically, she reported wanting to sleep all the time and having a poor appetite. She also complained of having transient episodes of dizziness, but denied falling. She denied having shortness of breath, feeling like her COPD was acting up, having chest pain, having fevers, chills, abdominal pain or diarrhea. She did admit to feeling nauseous. Dr. Antonio gave her nebs, hydrocortisone and Lasix and requested admission because he felt that her symptoms might be due to acute COPD and or acute CHF. 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 HOME MEDICATIONS: Please see below PHYSICAL EXAMINATION: Vital Signs Date Time Temp Pulse Resp B/P (MAP) Pulse Ox O2 Delivery O2 Flow Rate FiO2 05/25/20 17:16 98.7 88 20 143/65 (91) 99 Nasal Cannula 3.5 GEN: well nourished / well developed/ NAD INTEGUMENT: She doesn't have facial plethora HEENT:NCAT / she has pursed lip breathing / NC in place CVS: RRR/ distant heart sounds / radial pulses intact / no lower extremity edema LUNGS: She is able to speak full sentences without stopping to take a breath /she is using accessory muscles / there is decreased respiratory expansion MSK/EXTREMITIES: seated upright NEURO: CN 2-12 are grossly intact / speech is not dysarthric PSYCH: alert and oriented to person place and time/ able to understand and follow all commands LABORATORY DATA: 05/25/20 17:23 Immature Granulocyte % (Auto) 0.4, Neutrophils (%) (Auto) 82.5H, Lymphocytes (%) (Auto) 8.3L, Monocytes (%) (Auto) 8.1H, Eosinophils (%) (Auto) 0.4, Basophils (%) (Auto) 0.3, Neutrophils # (Auto) 8.2, Lymphocytes # (Auto) 0.8L, Monocytes # (Auto) 0.8, Eosinophils # (Auto) 0.0, Basophils # (Auto) 0.0, Nucleated Red Blood Cells % (auto) 0.0, Lactic Acid Level 0.7, Total Bilirubin 0.7, Direct Bilirubin 0.3H, Aspartate Amino Transf (AST/SGOT) 16, Alanine Aminotransferase (ALT/SGPT) 18, Alkaline Phosphatase 63, TJ-Fhw-I-Type Natriuretic Peptide 694H, Total Protein 6.0L, Albumin 3.0L, Albumin/Globulin Ratio 1.0L, Thyroid Stimulating Hormone (TSH) 0.958 05/25/20 17:29: POC Glucose (Misc Panel) 144H, POC Sodium (Misc Panel) 137, POC Potassium (Misc Panel) 4.1, POC Chloride (Misc Panel) 98, POC Total CO2 (Misc Panel) 28.0H, POC Blood Urea Nitrogen (Misc Panel 22, POC Ionized Calcium (Misc Panel) 4.5, POC Creatinine (Misc Panel) 0.8, POC Hematocrit (Misc Panel) 35.0L 05/25/20 17:32: POC Troponin I (Misc) 0.00 05/25/20 17:57: POC Total CO2 (Misc Panel) 34.0H, POC pH (Misc Panel) 7.443, POC Base Excess (Misc Panel) 9.0H, POC Saturated Percent O2 (Misc) 100H, POC pO2 (Misc Panel) 198.0H, POC pCO2 (Misc Panel) 48.0H, POC HCO3 (Misc Panel) 32.8H 05/25/20 19:54: POC Troponin I (Misc) 0.02 IMAGING: Chest x-ray shows pulmonary vascular congestion and probable right lower lobe pneumonia, but the final read is pending MICROBIOLOGY: 05/25/20 Blood Culture, Received Pending 05/25/20 Respiratory Virus Panel (PCR) (LETY) - Final, Complete 05/25/20 Blood Culture, Received Pending ASSESSMENT: Mr. Moran is a 79-year-old with a history of COPD, O2 dependent respiratory failure, and IDDM with neuropathy, depression, hypertension, osteoporosis, chronic diastolic CHF, pulmonary hypertension, and multiple surgeries, who presented with c/o of maliase and poor appetite; despite denying that she feels short of breath she is using accessory muscles and has pursed lip breathing. She meets SIRS criteria her chest x-ray shows some congestion and possibly lesion at the right lower lobe, therefore, I'll admit her for treatment of acute COPD and fluid overload pending final chest xray results. PLAN: 1. SIRS vs Sepsis 2/2 PNA SIRS criteria include: HR >90 / RR >20 Respirator panel was neg but chest xray shows possible lesion at the RLL Plan: admit to PCU / telemetry / pending final xray report the day time team may start abx / f/u blood cx & lactic acid 2. Acute COPD Clincally she has increased work of breathing & her RR was as high as 22 ABG was unremarkable Plan: supplemental O2 / continuous pulse oximetry / aspiration precautions / Dunebs Q6H, Albuterol Q4HP, Prednisone + PPI / c/w monteluklast 3. Acute Diastolic CHF / Chronic HTN She received IV lasix in the ER Plan: f/u Is and Os and daily weights / c/w lasix 40mg IV daily 4. NIDDM Plan: f/u accuchecks & A1C / hypoglycemia protocol / sliding scale insulin / hold oral anti-glycemics / gabapentin 5. Depression Plan: venlafaxine DVT PROPHYLAXIS: lovenox 6. Weakness Possibly 2/2 infection vs deconditioning Plan: PT consult 7.Macrocytic anemia Likely 2/2 COPD Plan: f/u CBC 8.Obesity BMI 30.2 with co-existing DM complicates care DISPOSITION: Likely home after more than 2 midnight's stay Home Medications Scheduled Aspirin/Dipyridamole (Aggrenox 25 mg-200 mg Capsule) 1 Ea Capcr, 1 CAP PO BID Budesonide (Budesonide) 0.5 Mg/2 Ml Ampul.neb, 1 VIAL INH BID Budesonide/Formoterol (Symbicort 160-4.5 Mcg Inhaler) 60 Puff/Inhaler Aers, 2 PUFF INH BID Carboxymethylcellulose Sodium (Refresh Tears) 0.5 % Je, 1 DROP OU DAILY Gabapentin (Gabapentin) 600 Mg Tablet, 1,200 MG PO BID Metformin HCl (Metformin HCl) 500 Mg Tab, 500 MG PO BID Montelukast Sodium (Singulair) 10 Mg Tab, 10 MG PO QHS Pantoprazole Sodium (Pantoprazole Sodium) 40 Mg Tablet.dr, 40 MG PO DAILY Prednisone (Prednisone) 10 Mg Tab, 10 MG PO DAILY Prednisone (Prednisone) 20 Mg Tablet, 40 MG PO DAILY 2 tabs (40mg) daily for 4days. Then 1 tab (20mg) for 5 days. Then return to 10mg daily per baseline Risedronate Sodium (Actonel) 150 Mg Tab, 150 MG PO QMONTH TAKES THE FIRST OF THE MONTH Tiotropium [place] (Spiriva) 18 Mcg Cap, 1 PUFF INH DAILY Venlafaxine HCl (Effexor Xr) 150 Mg Cap, 150 MG PO DAILY Scheduled PRN Albuterol Sulf (Albuterol Sulfate) 2.5 Mg/3 Ml Nebu, 1 VIAL INH Q4H PRN for SHORTNESS OF BREATH Albuterol Sulfate (Ventolin Hfa) 108 Mcg/Act Aer, 2 PUFFS INH Q4H PRN for SHORTNESS OF BREATH Fluticasone Propionate (Flonase Allergy Relief) 50 Mcg/Act Spr, 2 SPRAYS NARES DAILY PRN for CONGESTION Polyethylene Glycol 3350 (Miralax) 1 Pow Pow, 17 GM PO DAILY PRN for CONSTIPATION Sennosides/Docusate Sodium (Senna-S Tablet) 1 Tab Tab, 1 TAB PO DAILY PRN for CONSTIPATION Allergies Coded Allergies: Penicillins (Verified Allergy, Unknown, 11/12/19) chocolate flavor (Verified Allergy, Unknown, 11/12/19) clarithromycin (Verified Allergy, Unknown, 11/12/19) clavulanic acid (Verified Allergy, Unknown, 11/12/19) ipratropium (Verified Allergy, Unknown, 11/12/19) pseudoephedrine (Verified Allergy, Unknown, 11/12/19) A-FIB/CHADSVASC A-FIB History Current/History of A-Fib/PAF?: No Current PO Anticoag Therapy: No MEE ALLEN MD May 25, 2020 20:51
[2020-05-25 22:20] VITALS: BP 117/62
[2020-05-25] MEDS ORDERED: SENOKOT S TAB PO PRN (23:15)
[2020-05-25] MEDS ORDERED: MIRALAX *UNIT DOSE* 17GM PACKET PO PRN (23:15)
[2020-05-25] MEDS: MONTELUKAST 10 MG TAB PO SCH (23:56)
[2020-05-25] MEDS: GABAPENTIN 300 MG CAP PO SCH (23:56)
[2020-05-26] VITALS (19 sets, daily range): BP systolic 119–148; BP diastolic 56–80; O2SAT 90–100
[2020-05-26] MEDS ORDERED: FUROSEMIDE 40MG/4ML VIAL (J1940) IV SCH
[2020-05-26] MEDS: IPRATROPIUM 0.5MG/ALBUTEROL 2.5MG INH SOL UD 3ML (DUONEB) NEB SCH ×4 (02:10→19:51)
[2020-05-26 04:24] LABS: HEMATOCRIT 38.3 % (36.0-47.0); HEMOGLOBIN 11.7 g/dl (12.0-15.5); MEAN CORPUSCULAR HEMOGLOBIN 29.9 pg (27.0-33.0); MEAN CORPUSCULAR HGB CONC 30.5 g/dl (32.0-36.5); PLATELET COUNT, AUTOMATED 284 10^3/uL (150-450); RED BLOOD COUNT 3.91 10^6/uL (4.00-5.40); WHITE BLOOD COUNT 9.1 10^3/uL (4.0-10.0)
[2020-05-26 04:45] LABS: BLOOD UREA NITROGEN 24 MG/DL (7-18); CALCIUM LEVEL 8.4 MG/DL (8.8-10.2); CARBON DIOXIDE LEVEL 32 MEQ/L (21-32); CHLORIDE LEVEL 101 MEQ/L (98-107); CREATININE FOR GFR 0.76 MG/DL (0.55-1.30); GLOMERULAR FILTRATION RATE > 60.0 (>39); GLUCOSE, FASTING 143 MG/DL (70-100); MAGNESIUM LEVEL 2.3 MG/DL (1.8-2.4); SODIUM LEVEL 138 MEQ/L (136-145)
[2020-05-26] MEDS: TIOTROPIUM INHALER/CAPSULE (SPIRIVA) INH SCH (07:27)
--- NOTE | 2020-05-26 08:14 | ECGEPIP ---
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
[2020-05-26] MEDS: VENLAFAXINE **XR** 75MG CAPSULE PO SCH (08:37)
[2020-05-26] MEDS: GABAPENTIN 300 MG CAP PO SCH ×2 (08:38→21:56)
[2020-05-26] MEDS: FUROSEMIDE 40MG/4ML VIAL (J1940) IV SCH (08:38)
[2020-05-26] MEDS: predniSONE 20 MG TAB PO SCH (08:38)
[2020-05-26] MEDS: PANTOPRAZOLE 40MG TAB (PROTONIX) PO SCH (08:38)
[2020-05-26] MEDS ORDERED: ENOXAPARIN 40MG/0.4ML SYRINGE (J1650 PER 10MG) SC SCH (09:00)
[2020-05-26] MEDS: REFRESH EYE OU SCH (09:00)
--- NOTE | 2020-05-26 10:50 | REP ---
REASON FOR EXAM: Cough and dyspnea. COMPARISON: Multiple, the latest 01/06/2020. There is cardiomegaly accentuated by technique. The technique utilized in obtaining the radiograph has magnified the cardiac silhouette and accentuated the interstitial markings. There are basilar fibrotic changes status quo. No acute patchy parenchymal opacities or pleural effusions seem to have developed on this limited portable exam. There is no change in the osseous structures. IMPRESSION: Stable appearing chronic changes. Electronically Signed by Ab Villanueva DO 05/26/2020 05:22 P
[2020-05-26] MEDS ORDERED: PANT40TA29 PO (14:07)
[2020-05-26] MEDS ORDERED: PRED20TA PO (14:07)
--- NOTE | 2020-05-26 14:53 | IPNPDOC ---
Text Note Date of Service The patient was seen on 05/26/20. NOTE Subjective: -Feels ok this morning, better than she did yesterday -Speaking in full sentences and comfortably breathing on 2L NC Objective: GEN: well nourished, well developed, NAD HEENT: NCAT, MMM, nasal canula in place CVS: RRR, no mrg, no LE edema LUNGS: Decreased respiratory expansion however without crackles, rhonchi or wheezing EXTREMITIES: no LE edema, WWP NEURO: CN 2-12 are grossly intact, speech is not dysarthric, moving all extremities PSYCH: AOx3 LABORATORY DATA: WBC 9.1 hgb 11.7 platelets 284 na 138 K 4 Cr 0.76 IMAGING: Chest x-ray shows pulmonary vascular congestion and probable right lower lobe pneumonia, but the final read is pending ASSESSMENT: Ms. Moran is a 79-year-old W with a history of COPD, O2 dependent respiratory failure, and IDDM with neuropathy, depression, hypertension, osteoporosis, chronic diastolic CHF, pulmonary hypertension, and multiple surgeries, who is admitted for COPD exacerbation and mild acute on chronic diastolic CHF. PLAN: 1. Acute COPD exacerbation -supplemental O2 to goal >88% / aspiration precautions / Duonebs Q6H, Albuterol Q4HP, Prednisone 40 QD + PPI / c/w monteluklast 3. Acute Diastolic CHF / Chronic HTN -40 IV lasix QD -strict Is and Os and daily weights 4. NIDDM - hypoglycemia protocol / sliding scale insulin / hold oral anti-glycemics / gabapentin / ACHS FSBG 5. Depression -continue home venlafaxine 6. Weakness -continue working with PT 7.Obesity BMI 30.2 with co-existing DM complicates care DISPOSITION: PCU with ongoing PT, likely home tomorrow. VS,Fishbone, I+O VS, Fishbone, I+O Laboratory Tests 05/25/20 17:23 05/26/20 03:53 Vital Signs Date Time Temp Pulse Resp B/P (MAP) Pulse Ox O2 Delivery O2 Flow Rate FiO2 05/26/20 12:00 97.4 73 24 121/64 (83) 100 Nasal Cannula 2.0 I&O- Last 24 Hours up to 6 AM 05/26/20 05:59 Intake Total 300 ml Output Total 1300 ml Balance -1000 ml JOSE HO MD May 26, 2020 14:53
--- NOTE | 2020-05-26 21:43 | ECHO ---
DATE OF PROCEDURE: 05/26/2020 REFERRING PHYSICIAN: Dr. Maribel Cartagena INDICATION: Dyspnea Height 63 inches, weight 170 pounds. DIMENSIONS: IVS: 1.0 LV: 4.9 LVPW: 0.8 LA: 4.1 Aorta: 3.1 RV: 2.4 IVC: 1.1 Mitral E wave velocity: 3.8 E prime septal: 3.9 E prime lateral: 5.5 FINDINGS: The study is a very limited technical quality with very poor visualization. The patient is in sinus rhythm. Normal left ventricular (LV) size with hyperdynamic LV systolic function, estimated left ventricular ejection fraction (LVEF) around 70%. No segmental wall motion abnormalities are appreciated. Right ventricle does not appear grossly enlarged. There is severe left atrial enlargement. Right atrium appears to be normal size. The aortic valve is sclerotic and there is calcifications of aortic cusps. Based on limited views, I cannot comment much on its mobility. 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 Based on limited views, though, there appears to be at least mild restrictions of leaflet mobility. Tricuspid and pulmonic valves were poorly seen but grossly appear normal. No pericardial effusion is noted. Inferior vena cava is normal size. Aortic root is normal. Aortic arch and abdominal aorta were not well seen. Doppler interrogation of aortic valve reveals no insufficiency and mild stenosis with mean gradient 10 mmHg. There is mild mitral insufficiency and moderate mitral stenosis. Peak gradient was 23 and mean gradient 9 mmHg. Trace tricuspid insufficiency is seen. Estimated pulmonary artery pressure is approximately mid to high 40s based on poor quality of TR jet. Evaluation of the a diastolic function is inconclusive but at least moderate diastolic dysfunction seems likely based on very low tissue Doppler velocities of mitral annulus. CONCLUSIONS: 1. Study is of markedly limited technical quality, the patient is in sinus rhythm. 2. Normal left ventricular (LV) size with hyperdynamic LV systolic function and likely advanced diastolic dysfunction. 3. Prominent aortic sclerosis resulting in mild stenosis. 4. 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 5. Normal central venous pressure. 6. Suggestive of moderate pulmonary hypertension. COMMENT: Subacute bacterial endocarditis (SBE) prophylaxis is not recommended.
[2020-05-26] MEDS: MONTELUKAST 10 MG TAB PO SCH (21:57)
[2020-05-26] MEDS: ASPIRIN PO SCH (21:59)
[2020-05-26] MEDS: DIPYRIDAMOLE PO SCH (21:59)
[2020-05-27] VITALS (11 sets, daily range): BP systolic 106–137; BP diastolic 52–77; O2SAT 93–100
[2020-05-27] MEDS: IPRATROPIUM 0.5MG/ALBUTEROL 2.5MG INH SOL UD 3ML (DUONEB) NEB SCH ×3 (00:29→13:17)
[2020-05-27] MEDS: TIOTROPIUM INHALER/CAPSULE (SPIRIVA) INH SCH (06:56)
[2020-05-27] MEDS: REFRESH EYE OU SCH (08:20)
[2020-05-27] MEDS: DIPYRIDAMOLE PO SCH (08:20)
[2020-05-27] MEDS: GABAPENTIN 300 MG CAP PO SCH (08:20)
[2020-05-27] MEDS: ASPIRIN PO SCH (08:20)
[2020-05-27] MEDS: VENLAFAXINE **XR** 75MG CAPSULE PO SCH (08:21)
[2020-05-27] MEDS: predniSONE 20 MG TAB PO SCH (08:21)
[2020-05-27] MEDS: FUROSEMIDE 40MG/4ML VIAL (J1940) IV SCH (08:21)
[2020-05-27] MEDS: PANTOPRAZOLE 40MG TAB (PROTONIX) PO SCH (08:21)
--- NOTE | 2020-05-27 12:24 | DS.PDOC ---
Discharge Summary General Date of Admission May 25, 2020 at 20:43 Date of Discharge 05/27/2020 Attending Physician: JOSE HO MD Discharge Summary PROCEDURES PERFORMED DURING STAY: None ADMITTING DIAGNOSES: 1. Shortness of breath DISCHARGE DIAGNOSES: 1. COPD exacerbation 2. Acute on chronic diastolic CHF 3. Acute on chronic hypoxemic respiratory failure 4. Diabetes complicated by neuropathy, secondary to chronic prednisone use 5. Depression 6. HTN 7. 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 Mild pulmonary hypertension, PSAP 30-40 HISTORY OF PRESENT ILLNESS: 79-year-old W who was last admitted in December 2019 for management of acute on chronic respiratory failure secondary to COPD, who presented to the ED with the chief complaint of not feeling well. Specifically, she reported wanting to sleep all the time and having a poor appetite. She also complained of having transient episodes of dizziness, but denied falling. She denied having shortness of breat h, feeling like her COPD was acting up, having chest pain, having fevers, chills, abdominal pain or diarrhea. HOSPITAL COURSE: In the ED, she was given duonebs, hydrocortisone and Lasix and she was subsequently admitted for COPD exacerbation with mild acute on chronic diastolic CHF. Of note, she is on prednisone 10mg at baseline chronically. While inpatient her hypoxemia improved back to her baseline requiring 2L at rest and 3L with ambulation. She was started on prednisone 40mg daily as well as lasix 40 IV daily, with good effect. She is now being discharged home on her baseline home oxygen settings, on prednisone 40mg for another 4 days, then prednisone 20mg daily for 5 days, after which she will return to prednisone 10mg daily per baseline. In the meantime, I also started her on protonix 40 mg for GI ppx. DISCHARGE MEDICATIONS: Please see below. ALLERGIES: Please see below. PHYSICAL EXAMINATION ON DISCHARGE: VITAL SIGNS: Please see below. GEN: well nourished, well developed, NAD HEENT: NCAT, MMM, nasal canula in place CVS: RRR, no mrg, no LE edema LUNGS: Decreased respiratory expansion however without crackles, rhonchi or wheezing EXTREMITIES: no LE edema, WWP NEURO: CN 2-12 are grossly intact, speech is not dysarthric, moving all extremities PSYCH: AOx3 LABORATORY DATA: Please see below. IMAGING: CXR without acute pathology PROGNOSIS: good ACTIVITY: As tolerated DIET: regular DISCHARGE PLAN: Home with prednisone taper DISPOSITION: Home DISCHARGE INSTRUCTIONS: 1. Home with prednisone taper ITEMS TO FOLLOWUP ON ON OUTPATIENT: 1. COPD 2. diastolic CHF DISCHARGE CONDITION: Stable TIME SPENT ON DISCHARGE: 43 minutes. Vital Signs/I&Os Vital Signs Date Time Temp Pulse Resp B/P (MAP) Pulse Ox O2 Delivery O2 Flow Rate FiO2 05/26/20 12:00 97.4 73 24 121/64 (83) 100 Nasal Cannula 2.0 I&O- Last 24 Hours up to 6 AM 05/26/20 06:00 Intake Total 300 ml Output Total 1300 ml Balance -1000 ml Laboratory Data Labs 24H Laboratory Tests 2 05/25/20 17:23: Immature Granulocyte % (Auto) 0.4, Neutrophils (%) (Auto) 82.5H, Lymphocytes (%) (Auto) 8.3L, Monocytes (%) (Auto) 8.1H, Eosinophils (%) (Auto) 0.4, Basophils (%) (Auto) 0.3, Neutrophils # (Auto) 8.2, Lymphocytes # (Auto) 0.8L, Monocytes # (Auto) 0.8, Eosinophils # (Auto) 0.0, Basophils # (Auto) 0.0, Nucleated Red Blood Cells % (auto) 0.0, Lactic Acid Level 0.7, Total Bilirubin 0.7, Direct Bilirubin 0.3H, Aspartate Amino Transf (AST/SGOT) 16, Alanine Aminotransferase (ALT/SGPT) 18, Alkaline Phosphatase 63, LU-[place]-S-Type Natriuretic Peptide 694H, Total Protein 6.0L, Albumin 3.0L, Albumin/Globulin Ratio 1.0L, Thyroid Stimulating Hormone (TSH) 0.958 05/25/20 17:29: POC Glucose (Misc Panel) 144H, POC Sodium (Misc Panel) 137, POC Potassium (Misc Panel) 4.1, POC Chloride (Misc Panel) 98, POC Total CO2 (Misc Panel) 28.0H, POC Blood Urea Nitrogen (Misc Panel 22, POC Ionized Calcium (Misc Panel) 4.5, POC Creatinine (Misc Panel) 0.8, POC Hematocrit (Misc Panel) 35.0L 05/25/20 17:32: POC Troponin I (Misc) 0.00 05/25/20 17:57: POC Total CO2 (Misc Panel) 34.0H, POC pH (Misc Panel) 7.443, POC Base Excess (Misc Panel) 9.0H, POC Saturated Percent O2 (Misc) 100H, POC pO2 (Misc Panel) 198.0H, POC pCO2 (Misc Panel) 48.0H, POC HCO3 (Misc Panel) 32.8H 05/25/20 19:54: POC Troponin I (Misc) 0.02 05/25/20 21:35: Magnesium Level 2.2 05/26/20 00:58: Troponin I < 0.02 05/26/20 03:53: Magnesium Level 2.3, Nucleated Red Blood Cells % (auto) 0.0, Anion Gap 5L, Glomerular Filtration Rate > 60.0, Calcium Level 8.4L 05/26/20 04:25: Lactic Acid Level 1.2 CBC/BMP Laboratory Tests 05/25/20 17:23 05/26/20 03:53 Microbiology Microbiology 05/25/20 Blood Culture, Received Pending 05/25/20 Blood Culture, Received Pending 05/25/20 Respiratory Virus Panel (PCR) (LETY) - Final, Complete 05/25/20 Blood Culture, Received Pending Discharge Medications Scheduled Aspirin/Dipyridamole (Aggrenox 25 mg-200 mg Capsule) 1 Ea Capcr, 1 CAP PO BID, (Reported) Budesonide (Budesonide) 0.5 Mg/2 Ml Ampul.neb, 1 VIAL INH BID, (Reported) Budesonide/Formoterol (Symbicort 160-4.5 Mcg Inhaler) 60 Puff/Inhaler Aers, 2 PUFF INH BID, (Reported) Carboxymethylcellulose Sodium (Refresh Tears) 0.5 % Je, 1 DROP OU DAILY, (Reported) Gabapentin (Gabapentin) 600 Mg Tablet, 1,200 MG PO BID, (Reported) Metformin HCl (Metformin HCl) 500 Mg Tab, 500 MG PO BID, (Reported) Montelukast Sodium (Singulair) 10 Mg Tab, 10 MG PO QHS, (Reported) Pantoprazole Sodium (Pantoprazole Sodium) 40 Mg Tablet.dr, 40 MG PO DAILY Prednisone (Prednisone) 10 Mg Tab, 10 MG PO DAILY, (Reported) Prednisone (Prednisone) 20 Mg Tablet, 40 MG PO DAILY 2 tabs (40mg) daily for 4days. Then 1 tab (20mg) for 5 days. Then return to 10mg daily per baseline Risedronate Sodium (Actonel) 150 Mg Tab, 150 MG PO QMONTH, (Reported) TAKES THE FIRST OF THE MONTH Tiotropium [place] (Spiriva) 18 Mcg Cap, 1 PUFF INH DAILY, (Reported) Venlafaxine HCl (Effexor Xr) 150 Mg Cap, 150 MG PO DAILY, (Reported) Scheduled PRN Albuterol Sulf (Albuterol Sulfate) 2.5 Mg/3 Ml Nebu, 1 VIAL INH Q4H PRN for SHORTNESS OF BREATH, (Reported) Albuterol Sulfate (Ventolin Hfa) 108 Mcg/Act Aer, 2 PUFFS INH Q4H PRN for SH ORTNESS OF BREATH, (Reported) Fluticasone Propionate (Flonase Allergy Relief) 50 Mcg/Act Spr, 2 SPRAYS NARES DAILY PRN for CONGESTION, (Reported) Polyethylene Glycol 3350 (Miralax) 1 Pow Pow, 17 GM PO DAILY PRN for CONSTIPATION, (Reported) Sennosides/Docusate Sodium (Senna-S Tablet) 1 Tab Tab, 1 TAB PO DAILY PRN for CONSTIPATION, (Reported) Allergies Coded Allergies: Penicillins (Verified Allergy, Unknown, 11/12/19) chocolate flavor (Verified Allergy, Unknown, 11/12/19) clarithromycin (Verified Allergy, Unknown, 11/12/19) clavulanic acid (Verified Allergy, Unknown, 11/12/19) ipratropium (Verified Allergy, Unknown, 11/12/19) pseudoephedrine (Verified Allergy, Unknown, 11/12/19) JOSE HO MD May 26, 2020 15:10
== END 2020-05-27 15:01 | disposition home or self-care (01) | DRG 190 ==
LOC: M ED 17:07 → EDBD 17:07 → M ED INP 20:43 → EEVIPCON 20:43 → M PCU 23:36
PROVIDERS: ADMIT Internal Medicine; ATTEND Internal Medicine
DX: J44.1 Chronic obstructive pulmonary disease with (acute) exacerbation (principal); I50.33 Acute on chronic diastolic (congestive) heart failure; J96.21 Acute and chronic respiratory failure with hypoxia; E11.40 Type 2 diabetes mellitus with diabetic neuropathy, unspecified; F32.9 Major depressive disorder, single episode, unspecified; I11.0 Hypertensive heart disease with heart failure; M81.8 Other osteoporosis without current pathological fracture; I35.0 Nonrheumatic aortic (valve) stenosis; I34.0 Nonrheumatic mitral (valve) insufficiency; I27.20 Pulmonary hypertension, unspecified; Z66 Do not resuscitate; Z98.49 Cataract extraction status, unspecified eye; Z87.891 Personal history of nicotine dependence; R53.1 Weakness; E66.9 Obesity, unspecified; Z68.30 Body mass index [BMI] 30.0-30.9, adult; D53.9 Nutritional anemia, unspecified; Z79.82 Long term (current) use of aspirin; Z79.899 Other long term (current) drug therapy; Z79.52 Long term (current) use of systemic steroids; Z79.84 Long term (current) use of oral hypoglycemic drugs; Z88.0 Allergy status to penicillin; Z88.1 Allergy status to other antibiotic agents; Z11.59 Encounter for screening for other viral diseases; Z88.8 Allergy status to other drugs, medicaments and biological substances; Z91.018 Allergy to other foods; T38.0X5A Adverse effect of glucocorticoids and synthetic analogues, initial encounter

== ENCOUNTER 2020-07-27 03:15 | Inpatient (IN) | payer MEDICARE, OTHER ==
[~2020-07-27] VITALS: Ht 160 cm; Wt 68.8 kg
[~2020-07-27 03:15] MED LIST changes: +PANT40TA29 PO; +PRED20TA PO
[2020-07-27] MEDS ORDERED: METOPROLOL TART 50 MG TAB PO ONE (03:45)
[2020-07-27] MEDS ORDERED: FLECAINIDE 50MG TABLET PO ONE ×2 (03:45→05:00)
[2020-07-27] MEDS ORDERED: METOPROLOL TART 25 MG TABLET PO ONE (04:00)
[2020-07-27 04:01] LABS: BASO % 0.2 % (0.0-1.0); EOS # 0.1 10^3/uL (0.0-0.5); EOS % 0.5 % (0.0-3.0); HEMATOCRIT 34.3 % (36.0-47.0); HEMOGLOBIN 10.2 g/dl (12.0-15.5); LYMPH # 1.1 10^3/uL (1.5-5.0); LYMPH % 9.3 % (24.0-44.0); MEAN CORPUSCULAR HEMOGLOBIN 29.6 pg (27.0-33.0); MEAN CORPUSCULAR HGB CONC 29.7 g/dl (32.0-36.5); MEAN CORPUSCULAR VOLUME 99.4 fl (80.0-96.0); MONO % 8.3 % (0.0-5.0); NEUTROPHILS # 9.8 10^3/uL (1.5-8.5); NEUTROPHILS % 81.3 % (36.0-66.0); PLATELET COUNT, AUTOMATED 280 10^3/uL (150-450); RED BLOOD COUNT 3.45 10^6/uL (4.00-5.40); WHITE BLOOD COUNT 12.1 10^3/uL (4.0-10.0)
--- NOTE | 2020-07-27 04:04 | REPVR ---
PROCEDURE INFORMATION: Exam: XR Chest, 1 View Exam date and time: 07/27/2020 3:48 AM Age: 80 years old Clinical indication: Dyspnea; Additional info: Dysp/reg risk TECHNIQUE: Imaging protocol: XR of the chest Views: 1 view. COMPARISON: [place] PORTABLE CHEST X-RAY 05/25/2020 6:50 PM FINDINGS: Lungs: Coarse bibasilar interstitium which is similar. Pleural space: Haziness in the costophrenic angles bilaterally which is unchanged. Heart/Mediastinum: The heart and mediastinum are unchanged. Bones/joints: Unremarkable. IMPRESSION: Stable chest since 05/25/2020. No acute interval infiltrates. Electronically signed by: Liang Joyce On 07/27/2020 04:04:03 AM
[2020-07-27 04:36] LABS: CALCIUM LEVEL 8.5 MG/DL (8.8-10.2); CREATININE FOR GFR 0.99 MG/DL (0.55-1.30); FREE THYROXINE INDEX 2.6 % (1.3-4.8); GLOMERULAR FILTRATION RATE 57.8 (>39); THYROID STIMULATING HORMONE 0.622 uIU/ML (0.358-3.740); THYROXINE (T4) 6.7 UG/DL (4.5-12.0)
[2020-07-27] MEDS ORDERED: dexameTHASONE 20MG/5ML VIAL (J1100 PER 1MG) IV ONE (04:45)
[2020-07-27] MEDS ORDERED: HEPARIN DRIP 25,000 UNITS in IV 1 EA IV SCH (05:12)
[2020-07-27] MEDS ORDERED: ACETAMINOPHEN TAB 650MG DOSE (2X325MG) PO PRN (05:15)
[2020-07-27] MEDS ORDERED: FLUTICASONE PROP 0.05% NASAL SPRAY 16 GM (FLONASE) NARES PRN (05:15)
[2020-07-27] MEDS ORDERED: DEXTROSE 50% 50 ML SYRINGE IV PRN (05:15)
[2020-07-27] MEDS ORDERED: GLUCAGON INJ 1MG VIAL SC PRN (05:15)
[2020-07-27] MEDS ORDERED: GLUCOSE 4GM CHEW TABLET PO PRN (05:15)
[2020-07-27] MEDS ORDERED: MAALOX 30 ML SUSP *UDC PO PRN (05:15)
[2020-07-27] MEDS ORDERED: MOM 30ML SUSPENSION UDC PO PRN (05:15)
[2020-07-27] MEDS ORDERED: MIRALAX *UNIT DOSE* 17GM PACKET PO PRN (05:15)
[2020-07-27] MEDS ORDERED: SENOKOT S TAB PO PRN (05:15)
[2020-07-27] MEDS ORDERED: VENL150C43 PO (05:17)
[2020-07-27] MEDS ORDERED: PANT-23 PO (05:19)
[2020-07-27] MEDS ORDERED: HEPARIN SOD (PORCINE) 5000UNITS/ML 1ML VIAL/SYRINGE IV PRN (06:00)
[2020-07-27 06:11] LABS: VENOUS HCO3 28.3 MEQ/L (23.0-27.0); VENOUS O2 SATURATION 94.3 % (60.0-80.0); VENOUS PARTIAL PRESSURE CO2 58.2 mmHg (38.0-50.0); VENOUS PARTIAL PRESSURE O2 78.8 mmHg (30.0-50.0); VENOUS PH 7.305 UNITS (7.330-7.430); VENOUS STANDARD HCO3 25.3 MEQ/L; VENOUS TOTAL CO2 30.1 MEQ/L (24.0-28.0)
[2020-07-27 06:35] LABS: INR 0.89; PROTHROMBIN TIME 12.3 SECONDS (11.8-14.0)
[2020-07-27 06:55] LABS: MAGNESIUM LEVEL 2.3 MG/DL (1.8-2.4); THYROID STIMULATING HORMONE 0.933 uIU/ML (0.358-3.740); TROPONIN I 0.2 NG/ML (< 0.10)
[2020-07-27] MEDS ORDERED: methylPREDNISolone 125MG 2ML VIAL IV STA (06:56)
[2020-07-27] MEDS ORDERED: LEVALBUTEROL 1.25 MG/0.5 ML CONCENTRATE NEB NEB PRN (07:00)
--- NOTE | 2020-07-27 07:05 | HPEPDOC ---
[facility] Medical History & Physical Date of Admission Jul 27, 2020 Date of Service: Jul 27, 2020 Other Provider Bryce Joyce Attending Physician: MEE ALLEN MD History and Physical TIME OF SERVICE: 620am CHIEF COMPLAINT: dyspnea HISTORY OF PRESENT ILLNESS: This 80 yr old F presented w c/o dyspnea that begun last which she attributed it to her portable O2 machine not working; her nebs helped a little bit. Yesterday while visiting her son she noticed that her shortness of breath was much worse, therefore she decided to come to the hospital today. She admits to having trainsient dizziness, but denies having f/c/CP/ cough/sick contacts/ lower extremity swelling or palpitations. Because her EKG showed Afib w RVR she was given 200mg of PO flecanide and 75 mg of PO metoprolol tartrate. 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 HOME MEDICATIONS: Please see below PHYSICAL EXAMINATION: Vital Signs Date Time Temp Pulse Resp B/P (MAP) Pulse Ox O2 Delivery O2 Flow Rate FiO2 07/27/20 03:31 Nasal Cannula 07/27/20 03:33 96.8 148 26 171/115 (133) 98 GENERAL APPEARANCE: well nourished / well developed / NAD HEENT: EOMI /lips not cyanotic / NC in place CARDIOVASCULAR: tachycardic / NMRG LUNGS: using accessory muscles/ has difficulties talking one sentence w/o stopping to take a breath / breath sounds diminished bilaterally ABDOMEN: obese/ ventral hernia /not tender w palpation MUSCULOSKELETAL: NCAT / OSVALDO x4 INTEGUMENT: generalized pallor NEUROLOGICAL: CN 2-12 intact / speech not dysarthric / + asterisks PSYCHIATRIC: A&O x 3 able to understand and follow all comands LABORATORY DATA: 07/27/20 03:43 Immature Granulocyte % (Auto) 0.4, Neutrophils (%) (Auto) 81.3H, Lymphocytes (%) (Auto) 9.3L, Monocytes (%) (Auto) 8.3H, Eosinophils (%) (Auto) 0.5, Basophils (%) (Auto) 0.2, Neutrophils # (Auto) 9.8H, Lymphocytes # (Auto) 1.1L, Monocytes # (Auto) 1.0H, Eosinophils # (Auto) 0.1, Basophils # (Auto) 0.0, Nucleated Red Blood Cells % (auto) 0.0, Anion Gap 2L, Glomerular Filtration Rate 57.8, Calcium Level 8.5L, Thyroid Stimulating Hormone (TSH) 0.622, Free Thyroxine Index 2.6, Thyroxine (T4) 6.7, Triiodothyronine (T3) Uptake 39 07/27/20 05:58: Thyroid Stimulating Hormone (TSH) 0.933, Prothrombin Time 12.3, Prothromb Time International Ratio 0.89, Blood Gas Bicarbonate Standard 25.3, Venous Blood pH 7.305L, Venous Blood Partial Pressure CO2 58.2H, Venous Blood Partial Pressure O2 78.8H, Venous Blood Total Carbon Dioxide 30.1H, Venous Blood HCO3 28.3H, Venous Blood Oxygen Saturation 94.3H, Venous Blood Base Excess 1.0, Lactic Acid Level 1.4, Magnesium Level 2.3, Troponin I 0.20H, FD-Jau-Q-Type Natriuretic Peptide 4120H IMAGING: Chest xray IMPRESSION: Stable chest since 05/25/2020. No acute interval infiltrates. MICROBIOLOGY: 07/27/20 Blood Culture, Received Pending ASSESSMENT: Mr. Moran is a 79-year-old with a hx of COPD, O2 & steroid dependence, IDDM w neuropathy, CVA, depression, HTN, steroid induce osteoporosis, chronic diastolic CHF & pulmonary hypertension, who presented with c/o of dyspnea and palpitations; he will be admitted for evaluation of new-onset A fib, SIRS and acute COPD PLAN: 1 New onset vs Paroxysmal Atrial Fibrillation Possible causes include HTN, CAD, cardiomyopathy, COPD, CHF, mitral valvulopathy, or sepsis or reaction to beta agonist (albuterol), alcohol w/d, thyroid disorder, viral infection EKG reviewed Ca 8.5 CHADS VASC Score to determine risk of stroke = 6 points = Stroke risk of approx 9.7% per year Wells Score to determine if D-dimer needs to be ordered to r/o PE = 1.5 points = low risk therefore no need to order CTA to r/o PE as cause of new onset afib Echo May 2020 CONCLUSIONS: 1. Study is of markedly limited technical quality, the patient is in sinus rhythm. 2. Normal left ventricular (LV) size with hyperdynamic LV systolic function and likely advanced diastolic dysfunction. 3. Prominent aortic sclerosis resulting in mild stenosis. 4. Probably rheumatic abnormalities of mitral valve with resulting moderate mitral stenosis.5. Normal central venous pressure. 6. Suggestive of moderate pulmonary hypertension. 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 / f/u repeat Echo to r/o new systolic CHF as a possible cause / if the work up to determine the cause is negative for a cause she will need to be referred for an outpatient sleep study 2 SIRS Possibly reactive vs 2/2 occult infection SIRS criteria: HR >90 / WBC >12 / RR >20 QSOFA Score = 1 points = not high risk Chest xray neg for infection Plan: telemetry / f/u lactic acid, UA w cx, blood cx, respiratory panel and VBG / no abx pending confirmation of a source of infection 3 Acute COPD Clincally she has increased work of breathing w tachypnea ABG was unremarkable Plan: supplemental O2 / continuous pulse oximetry / aspiration precautions / elevated HOB / c/w monteluklast & Spiriva / solumedrol now / Dunebs Q6H, Levalbuterol Q4HP/ start PO Prednisone tomorrow / PPI 4. Chronic O2 Dependent Respiratory Failure Plan: supplemental O2 5 hx of CVA Plan: hold Aggrenox while on Heparin /day time team may consider reaching out to her Neurologist to discuss continuing this med while she is on AC for Afib 6 Chronic Diastolic CHF / Chronic HTN She received IV lasix in the ER Plan: f/u Is and Os and daily weights / restrict salt to 2G 7 NIDDM Last A1C 6.6 in 2016 Plan: f/u accuchecks & A1C / hypoglycemia protocol / sliding scale insulin / hold oral anti-glycemics / gabapentin 8 Depression Plan: venlafaxine 9 Debility Plan: PT consult for early mobilization 10 Macrocytic anemia Likely 2/2 COPD Plan: f/u CBC DVT PROPHYLAXIS: n/a on AC for A fib Dispo: home after more than 2 midnight's course Home Medications Scheduled Aspirin/Dipyridamole (Aggrenox 25 mg-200 mg Capsule) 1 Ea Capcr, 1 CAP PO BID Budesonide (Budesonide) 0.5 Mg/2 Ml Ampul.neb, 1 VIAL INH BID Budesonide/Formoterol (Symbicort 160-4.5 Mcg Inhaler) 60 Puff/Inhaler Aers, 2 PUFF INH BID Carboxymethylcellulose Sodium (Refresh Tears) 0.5 % Je, 1 DROP OU DAILY Gabapentin (Gabapentin) 600 Mg Tablet, 600 MG PO QID Metformin HCl (Metformin HCl) 500 Mg Tab, 500 MG PO BID Montelukast Sodium (Singulair) 10 Mg Tab, 10 MG PO QHS Pantoprazole Sodium (Pantoprazole Sodium) 40 Mg Tablet.dr, 40 MG PO DAILY Prednisone (Prednisone) 10 Mg Tab, 10 MG PO DAILY Risedronate Sodium (Actonel) 150 Mg Tab, 150 MG PO QMONTH TAKES THE FIRST OF THE MONTH Tiotropium [place] (Spiriva) 18 Mcg Cap, 1 PUFF INH DAILY Venlafaxine HCl (Venlafaxine HCl ER) 150 Mg Cap.er.24h, 150 MG PO DAILY Scheduled PRN Albuterol Sulf (Albuterol Sulfate) 2.5 Mg/3 Ml Nebu, 1 VIAL INH Q4H PRN for SHORTNESS OF BREATH Albuterol Sulfate (Ventolin Hfa) 108 Mcg/Act Aer, 2 PUFFS INH Q4H PRN for SHORTNESS OF BREATH Fluticasone Propionate (Flonase Allergy Relief) 50 Mcg/Act Spr, 2 SPRAYS NARES DAILY PRN for CONGESTION Polyethylene Glycol 3350 (Miralax) 1 Pow Pow, 17 GM PO DAILY PRN for CONSTIPATION Sennosides/Docusate Sodium (Senna-S Tablet) 1 Tab Tab, 1 TAB PO DAILY PRN for CONSTIPATION Allergies Coded Allergies: chocolate flavor (Verified Allergy, Severe, throat tightens, 07/27/20) Penicillins (Verified Allergy, Mild, shakes, 07/27/20) clarithromycin (Verified Allergy, Mild, shakes, 07/27/20) clavulanic acid (Verified Allergy, Mild, shakes, 07/27/20) ipratropium (Verified Allergy, Mild, shakes, 07/27/20) pseudoephedrine (Verified Allergy, Mild, flushed , 07/27/20) A-FIB/CHADSVASC A-FIB History Current/History of A-Fib/PAF?: No Current PO Anticoag Therapy: MEE Olea MD Jul 27, 2020 07:05
[2020-07-27 08:00] VITALS: BP 120/90
[2020-07-27] MEDS: IPRATROPIUM 0.5MG/ALBUTEROL 2.5MG INH SOL UD 3ML (DUONEB) NEB SCH ×2 (08:00→13:38)
[2020-07-27] MEDS ORDERED: ALBUTEROL 90 MCG/ACT 8GM HFA INHALER INH STA (08:52)
[2020-07-27] MEDS ORDERED: ENTER DRUG NAME HERE (PATIENT'S OWN MED) PO SCH (09:00)
[2020-07-27] MEDS: HumaLOG INSULIN (NovoLOG) PER UNIT SC SCH ×4 (09:06→20:32)
[2020-07-27] MEDS: GABAPENTIN 300 MG CAP PO SCH ×4 (09:07→20:31)
[2020-07-27] MEDS: PANTOPRAZOLE 40MG TAB (PROTONIX) PO SCH (09:07)
[2020-07-27] MEDS: VENLAFAXINE **XR** 75MG CAPSULE PO SCH (09:08)
[2020-07-27] MEDS: ENOXAPARIN 80MG/0.8ML SYRINGE (J1650 PER 10MG) SC SCH ×2 (09:08→20:31)
[2020-07-27] MEDS: METOPROLOL TART 25 MG TABLET PO SCH ×2 (09:08→20:32)
[2020-07-27 09:31] LABS: HEMOGLOBIN A1c 7.9 %
[2020-07-27 10:57] LABS: CALCIUM LEVEL 8.6 MG/DL (8.8-10.2); CREATININE FOR GFR 1.09 MG/DL (0.55-1.30); GLOMERULAR FILTRATION RATE 51.7 (>39); POTASSIUM SERUM 4.4 MEQ/L (3.5-5.1)
[2020-07-27 12:00] VITALS: BP 136/82
[2020-07-27] MEDS ORDERED: methylPREDNISolone 40MG 1ML VIAL IV SCH ×2 (12:00→20:00)
[2020-07-27] MEDS ORDERED: SLF 3 ML SYR IV PRN (12:30)
[2020-07-27] MEDS: SLF 3 ML SYR IV SCH ×2 (13:01→20:33)
[2020-07-27 13:27] LABS: CK-MB VALUE MASS 2.7 NG/ML (<3.6); MB/CK RELATIVE INDEX 4.74 (< OR =4); TROPONIN I 0.12 NG/ML (< 0.10)
[2020-07-27] MEDS: TIOTROPIUM INHALER/CAPSULE (SPIRIVA) INH SCH (13:39)
[2020-07-27 14:02] LABS: ABG BASE EXCESS 1.9 (-2.0-2.0); ABG HCO3 29.7 MEQ/L (22.0-26.0); ABG O2 SATURATION 98.4 % (95.0-99.0); ABG PARTIAL PRESSURE O2 125.8 mmHg (75.0-100.0); ABG STANDARD HCO3 26.2 MEQ/L (22.0-26.0); ABG TOTAL CO2 31.6 MEQ/L (23.0-31.0); ABG pH (ARTERIAL) 7.292 UNITS (7.350-7.450)
[2020-07-27 14:03] LABS: ABG PARTIAL PRESSURE CO2 62.8 mmHg (35.0-45.0)
--- NOTE | 2020-07-27 14:06 | IPNPDOC ---
Text Note Date of Service The patient was seen on 07/27/20. NOTE S: Pt is a 80 year old female with a past history of COPD(on 3L Home Oxygen) oral Steroid dependant(10 mg oral Prednisone), Chronic Oxygen dependant Respiratory failure, Grade 1 diastolic heart failure presented to the emergency department with the chief complaint of worsening dyspnea and dizziness since last (5 days), she was managing it fine until yesterday when she was visiting her son and exerted a little more than usual which worsened her condition and forced her to come to the ED this morning. She denies any fever, cough, chest pain, orthopnea, PND. She has had recurrent episodes of hospitalizations before but this time its worse. The patient states that she is feeling much better today but still has some difficulty breathing. She says she is sleepy. O: GENERAL-Patient looks sleepy but oriented to time place and person, she is saturating 89 % on 3 L nasal cannula. HEENT: EOMI, lips not cyanotic, nasal cannula in place, EOMI. CVS: Normal rate , normal heart sounds, no murmur RESP: using accessory muscles of respiration, Breath sounds diminished bilaterally, Inspiratory wheezing heard on both sides. ABDOMEN: Non distended, non tender. Bowel sounds +, Tympanitic on percussion. No organomegaly felt MUSCULOSKELETAL:No joint pain and swelling. NEUROLOGICAL: CN 2-12 intact. good motor strength, sensations intact. PSYCHIATRY: Normal affect and mood. Had a few episodes of hallucinations. ASSESSMENT & PLAN: Miss Moran is a 79-year-old with a hx of COPD, O2 & steroid dependence, IDDM w neuropathy, CVA, depression, HTN, steroid induce osteoporosis, chronic diastolic CHF & pulmonary hypertension, who presented with c/o of dyspnea and palpi tations; she was admitted for evaluation of new-onset A fib, SIRS and acute COPD PLAN: #. New onset Paroxysmal Atrial Fibrillation: (multiple causes HTN, CAD, cardiomyopathy, COPD, CHF) Plan: -EKG reviewed- Pt is in Atrial Flutter with a heart rate of 100 this morning, patient's BP stable at that time. -Troponin ordered.-trending down. -Pt is on Telemetry. -Pt started on 40 mg IV BID Solumedrol increased to 60 mg IV BID later today. -Continue Spiriva. -Patient restarted on Aspirin, Lovenox and Coumadin, daily INR. -Heparin drip D/C'd. -Continue metoprolol. #. Acute exacerbation of COPD: -Clinically she has increased work of breathing with tachypnea -ABG to be repeated- pCO2 was 62- Dose of steroid increased to 60 mg iv bid. Plan: -Pt started on 60 mg IV BID Solumedrol -supplemental O2 / continuous pulse oximetry / aspiration precautions / continue with Monteluklast & Spiriva / solumedrol now / Duo nebs Q6H , PPI -Levo-albuterol discontinued. #. History of Chronic O2 Dependent Respiratory Failure: -Plan: -supplemental O2 on 3L of Home Oxygen. #. Chronic Diastolic CHF / Chronic HTN Plan: -f/u I's and O's and daily weights -restrict sodium to 2G # NIDDM Last A1C 6.6 in 2015 Plan: - f/u accu checks - hypoglycemia protocol / sliding scale insulin # Depression Plan: Continue venlafaxine # Debility Plan: PT consult for early mobilization # Macrocytic anemia Likely 2/2 COPD Plan: f/u CBC GI Prophylaxis: Pt is on a PPI. DVT PROPHYLAXIS: n/a on AC for A fib. Dispo: Home after breathing stabilized. VS,Fishbone, I+O VS, Fishbone, I+O Laboratory Tests 07/27/20 03:43 07/27/20 05:58 Vital Signs Date Time Temp Pulse Resp B/P (MAP) Pulse Ox O2 Delivery O2 Flow Rate FiO2 07/27/20 09:08 100 118/89 07/27/20 08:00 97.0 22 88 Nasal Cannula 3.0 GME ATTESTATION GME ATTESTATION My faculty preceptor for this patient encounter was physically present during the encounter and was fully available. All aspects of the patient interview, examination, medical decision making process, and medical care plan development were reviewed and approved by the faculty preceptor. The faculty preceptor is aware and concurs with the plan as stated in the body of this note and will attest to such by his/her cosignature. ATTENDING NOTE Patient was seen and examined by me personally with the residents and I agree with the above assessment and plan Romario Smith MD Jul 27, 2020 14:06 NKECHI BAKER MD Aug 03, 2020 14:17
--- NOTE | 2020-07-27 14:09 | REPVR ---
PROCEDURE INFORMATION: Exam: XR Chest, 1 View Exam date and time: 07/27/2020 1:45 PM Age: 80 years old Clinical indication: Bronchospasm; Patient HX: Question of aspiration TECHNIQUE: Imaging protocol: XR of the chest Views: 1 view. COMPARISON: CR Chest, 1 view 07/27/2020 3:43 AM FINDINGS: Lungs: There is mild prominence of bronchovascular markings. No focal infiltrate. Pleural space: Unremarkable. No pleural effusion. No pneumothorax. Heart/Mediastinum: Heart is enlarged. Bones/joints: Unremarkable. IMPRESSION: No change. Electronically signed by: Jem Benjamin On 07/27/2020 14:09:03 PM
[2020-07-27 16:00] VITALS: BP 119/77
[2020-07-27 17:00] VITALS: O2SAT 100
[2020-07-27] MEDS: methylPREDNISolone 125MG 2ML VIAL IV SCH (17:05)
[2020-07-27 17:23] LABS: ABG BASE EXCESS -0.1 (-2.0-2.0); ABG HCO3 25.5 MEQ/L (22.0-26.0); ABG O2 SATURATION 99.6 % (95.0-99.0); ABG PARTIAL PRESSURE CO2 45.8 mmHg (35.0-45.0); ABG PARTIAL PRESSURE O2 192.4 mmHg (75.0-100.0); ABG STANDARD HCO3 24.4 MEQ/L (22.0-26.0); ABG TOTAL CO2 26.9 MEQ/L (23.0-31.0); ABG pH (ARTERIAL) 7.364 UNITS (7.350-7.450)
[2020-07-27] MEDS: WARFARIN SOD 7.5MG TAB PO SCH (17:30)
[2020-07-27 18:00] VITALS: O2SAT 97
[2020-07-27 20:00] VITALS: BP 145/92
[2020-07-27] MEDS: MONTELUKAST 10 MG TAB PO SCH (20:31)
[2020-07-28] VITALS: BP 144/95
[2020-07-28 04:00] VITALS: BP 126/75
[2020-07-28 04:57] LABS: HEMATOCRIT 35.3 % (36.0-47.0); HEMOGLOBIN 10.5 g/dl (12.0-15.5); MEAN CORPUSCULAR HEMOGLOBIN 29.4 pg (27.0-33.0); MEAN CORPUSCULAR HGB CONC 29.7 g/dl (32.0-36.5); MEAN CORPUSCULAR VOLUME 98.9 fl (80.0-96.0); PLATELET COUNT, AUTOMATED 325 10^3/uL (150-450); RED BLOOD COUNT 3.57 10^6/uL (4.00-5.40); WHITE BLOOD COUNT 15.3 10^3/uL (4.0-10.0)
[2020-07-28 05:10] LABS: INR 1.11; PROTHROMBIN TIME 14.5 SECONDS (11.8-14.0)
[2020-07-28] MEDS: SLF 3 ML SYR IV SCH ×3 (05:23→20:53)
[2020-07-28] MEDS: methylPREDNISolone 125MG 2ML VIAL IV SCH (05:23)
[2020-07-28 05:30] LABS: ALBUMIN 3.1 GM/DL (3.2-5.2); BILIRUBIN,TOTAL 0.4 MG/DL (0.2-1.0); CALCIUM LEVEL 8.3 MG/DL (8.8-10.2); CREATININE FOR GFR 1.2 MG/DL (0.55-1.30); GLOMERULAR FILTRATION RATE 46.3 (>39); POTASSIUM SERUM 4.4 MEQ/L (3.5-5.1); TOTAL PROTEIN 6.4 GM/DL (6.4-8.2)
[2020-07-28] MEDS: HumaLOG INSULIN (NovoLOG) PER UNIT SC SCH ×4 (07:30→20:55)
[2020-07-28] MEDS: TIOTROPIUM INHALER/CAPSULE (SPIRIVA) INH SCH (07:50)
[2020-07-28 08:00] VITALS: BP 155/77
[2020-07-28] MEDS: ENOXAPARIN 80MG/0.8ML SYRINGE (J1650 PER 10MG) SC SCH ×2 (09:00→20:53)
[2020-07-28] MEDS: METOPROLOL TART 25 MG TABLET PO SCH ×2 (09:00→20:52)
[2020-07-28] MEDS: PANTOPRAZOLE 40MG TAB (PROTONIX) PO SCH (09:00)
[2020-07-28] MEDS: VENLAFAXINE **XR** 75MG CAPSULE PO SCH (09:00)
[2020-07-28] MEDS: ASPIRIN 81 MG ENTERIC TAB PO SCH (09:00)
[2020-07-28] MEDS ORDERED: predniSONE 20 MG TAB PO SCH (09:00)
[2020-07-28] MEDS ORDERED: LOVE1INJ SC (10:53)
[2020-07-28] MEDS: AZITHROMYCIN 250MG TABLET PO SCH (11:15)
--- NOTE | 2020-07-28 11:49 | IPNPDOC ---
Text Note Date of Service The patient was seen on 07/28/20. NOTE S: Pt is a 80 year old female with a past history of COPD(on 3L Home Oxygen) oral Steroid dependant(10 mg oral Prednisone), Chronic Oxygen dependant Respiratory failure, Grade 1 diastolic heart failure presented to the emergency department with the chief complaint of worsening dyspnea and dizziness since last (5 days), she was managing it fine until yesterday when she was visiting her son and exerted a little more than usual which worsened her condition and forced her to come to the ED this morning. She denies any fever, cough, chest pain, orthopnea, PND. She has had recurrent episodes of hospitalizations before but this time its worse. -The patient states that she is feeling much better, says she is feeling more awake, has not had any episodes of hallucinations since last evening. O: GENERAL-Patient looks awake but oriented to time place and person, she is saturating 98 % on 3 L nasal cannula. HEENT: EOMI, lips not cyanotic, nasal cannula in place, EOMI. CVS: Normal rate , normal heart sounds, no murmur RESP: using accessory muscles of respiration, Breath sounds diminished bilaterally, some B/L crackles heard in the bases. ABDOMEN: Non distended, non tender. Bowel sounds +, Tympanitic on percussion. No organomegaly felt MUSCULOSKELETAL:No joint pain and swelling. EXTREMITIES: No edema bilaterally. NEUROLOGICAL: CN 2-12 intact. good motor strength, sensations intact. PSYCHIATRY: Normal affect and mood. Had a few episodes of hallucinations. ASSESSMENT & PLAN: Miss Moran is a 79-year-old with a hx of COPD, O2 & steroid dependence, IDDM w neuropathy, CVA, depression, HTN, steroid induce osteoporosis, chronic diastolic CHF & pulmonary hypertension, who presented with c/o of dyspnea and palpitations; she was admitted for evaluation of new-onset A fib, SIRS and acute COPD PLAN: #. New onset Paroxysmal Atrial Fibrillation:(Most likely Hypoxia, Hypercarbia) Plan: -EKG reviewed- Pt is in Atrial Flutter with a heart rate of 128 this morning, patient's BP stable at that time. -Diltiazem 30 mg PO daily scheduled started. -Pt was weaned off to 40 mg IV BID later today. -Continue Spiriva. -Troponin -trending flat then trending down. -Pt is on Telemetry. -Patient restarted on Aspirin, Lovenox and Coumadin, daily INR. -Heparin drip D/C'd. -Continue same dose of metoprolol (with hold parameters of SBP of 110 or HR of 60). -ECHO report pending. -Pt has a CHADVASc score of 6. -Because of a valvular At Fib according to her ECHO done in May, she was started on Coumadin. -Her Aggrenox was changed to aspirin given risk of bleeding- This was discussed with the family. They state understanding. #. Acute exacerbation of COPD: -Clinically she has increased work of breathing with tachypnea Plan: -ABG at 9:00 am 07/27/20- pCO2 was 62- Dose of steroid increased to 60 mg iv bid. -Repeat ABG at 4:00 pm 07/27/20 showed pCO2 of 45. Plan is to wean off steroids tomorrow. -Pt started on 60 mg IV BID Solumedrol -supplemental O2 / continuous pulse oximetry / aspiration precautions / continue with Montelukast & Spiriva / solumedrol. -Levo-albuterol discontinued. #. History of Chronic O2 Dependent Respiratory Failure: -Plan: -supplemental O2 on 3L of Home Oxygen. #. Chronic Diastolic CHF / Chronic HTN Plan: -f/u I's and O's and daily weights -restrict sodium to 2G # NIDDM Last A1C 6.6 in 2015 Plan: - f/u accu checks - hypoglycemia protocol / sliding scale insulin # Depression Plan: Continue venlafaxine # Debility Plan: PT consult for early mobilization # Macrocytic anemia Likely 2/2 COPD Plan: f/u CBC GI Prophylaxis: Pt is on a PPI. DVT PROPHYLAXIS: n/a on AC for A fib. Dispo: Home after breathing stabilized. VS,Fishbone, I+O VS, Fishbone, I+O Laboratory Tests 07/28/20 04:26 Vital Signs Date Time Temp Pulse Resp B/P (MAP) Pulse Ox O2 Delivery O2 Flow Rate FiO2 07/28/20 11:15 117 155/77 07/28/20 08:00 3.0 07/28/20 08:00 97.2 24 98 Nasal Cannula I&O- Last 24 Hours up to 6 AM 07/28/20 06:00 Intake Total 600 ml Output Total 0 ml Balance 600 ml GME ATTESTATION GME ATTESTATION My faculty preceptor for this patient encounter was physically present during th e encounter and was fully available. All aspects of the patient interview, examination, medical decision making process, and medical care plan development were reviewed and approved by the faculty preceptor. The faculty preceptor is aware and concurs with the plan as stated in the body of this note and will attest to such by his/her cosignature. ATTENDING NOTE Patient was seen and examined by me personally with the residents and I agree with the above assessment and plan Romario Smith MD Jul 28, 2020 11:20 NKECHI BAKER MD Aug 03, 2020 14:39
[2020-07-28 12:00] VITALS: BP 140/74
[2020-07-28 16:00] VITALS: BP 144/82
[2020-07-28] MEDS: WARFARIN SOD 7.5MG TAB PO SCH (18:14)
[2020-07-28] MEDS: methylPREDNISolone 40MG 1ML VIAL IV SCH (18:15)
[2020-07-28 20:00] VITALS: BP 126/74
[2020-07-28] MEDS: MONTELUKAST 10 MG TAB PO SCH (20:53)
[2020-07-29] VITALS (7 sets, daily range): BP systolic 109–160; BP diastolic 74–88
[2020-07-29] MEDS: methylPREDNISolone 40MG 1ML VIAL IV SCH ×3 (04:44→23:13)
[2020-07-29 05:00] LABS: HEMATOCRIT 37.6 % (36.0-47.0); HEMOGLOBIN 11.1 g/dl (12.0-15.5); MEAN CORPUSCULAR HEMOGLOBIN 29.1 pg (27.0-33.0); MEAN CORPUSCULAR HGB CONC 29.5 g/dl (32.0-36.5); MEAN CORPUSCULAR VOLUME 98.7 fl (80.0-96.0); PLATELET COUNT, AUTOMATED 358 10^3/uL (150-450); RED BLOOD COUNT 3.81 10^6/uL (4.00-5.40)
[2020-07-29] MEDS: SLF 3 ML SYR IV SCH ×3 (05:05→22:08)
[2020-07-29 05:11] LABS: INR 2.03; PROTHROMBIN TIME 23.4 SECONDS (11.8-14.0)
[2020-07-29 05:23] LABS: ALBUMIN 3.2 GM/DL (3.2-5.2); BILIRUBIN,TOTAL 0.5 MG/DL (0.2-1.0); CALCIUM LEVEL 7.8 MG/DL (8.8-10.2); CREATININE FOR GFR 1.43 MG/DL (0.55-1.30); GLOMERULAR FILTRATION RATE 37.8 (>39); POTASSIUM SERUM 4.9 MEQ/L (3.5-5.1); TOTAL PROTEIN 6.5 GM/DL (6.4-8.2)
[2020-07-29] MEDS: TIOTROPIUM INHALER/CAPSULE (SPIRIVA) INH SCH (07:50)
[2020-07-29] MEDS: SYMBICORT 160/4.5MCG INHALER 6GM INH SCH ×2 (08:00→20:12)
[2020-07-29] MEDS: ENOXAPARIN 80MG/0.8ML SYRINGE (J1650 PER 10MG) SC SCH (10:13)
[2020-07-29] MEDS: AZITHROMYCIN 250MG TABLET PO SCH (10:13)
[2020-07-29] MEDS: VENLAFAXINE **XR** 75MG CAPSULE PO SCH (10:14)
[2020-07-29] MEDS: ASPIRIN 81 MG ENTERIC TAB PO SCH (10:14)
[2020-07-29 10:18] LABS: MB/CK RELATIVE INDEX 2.08 (< OR =4)
[2020-07-29] MEDS: HumaLOG INSULIN (NovoLOG) PER UNIT SC SCH ×4 (10:18→20:58)
[2020-07-29] MEDS: PANTOPRAZOLE 40MG TAB (PROTONIX) PO SCH (10:18)
--- NOTE | 2020-07-29 11:24 | IPNPDOC ---
Text Note Date of Service The patient was seen on 07/29/20. NOTE S: Pt is a 80 year old female with a past history of COPD(on 3L Home Oxygen) oral Steroid dependant(10 mg oral Prednisone), Chronic Oxygen dependant Respiratory failure, Grade 1 diastolic heart failure presented to the emergency department with the chief complaint of worsening dyspnea and dizziness since last (5 days), she was managing it fine until yesterday when she was visiting her son and exerted a little more than usual which worsened her condition and forced her to come to the ED this morning. She denies any fever, cough, chest pain, orthopnea, PND. She has had recurrent episodes of hospitalizations before but this time its worse. -The patient states that she is feeling much better, breathing seems better. Still gets sleepy during the day. O: GENERAL-Patient looks awake but oriented to time place and person, she is saturating 100 % on 4L nasal cannula. HEENT: EOMI, lips not cyanotic, nasal cannula in place, EOMI. CVS:normal heart sounds, no murmur RESP: using accessory muscles of respiration, Breath sounds diminished bilaterally, some B/L crackles and wheezing heard in the bases. ABDOMEN: Non distended, non tender. Bowel sounds +, Tympanitic on percussion. No organomegaly felt MUSCULOSKELETAL:No joint pain and swelling. EXTREMITIES: +1 edema bilaterally. NEUROLOGICAL: CN 2-12 intact. good motor strength, sensations intact. PSYCHIATRY: Normal affect and mood. Had a few episodes of hallucinations. ASSESSMENT & PLAN: Mrs Moran is a 79-year-old with a hx of COPD, O2 & steroid dependence, IDDM , CVA, depression, HTN, steroid induce osteoporosis, chronic diastolic CHF & pulmonary hypertension, who presented with c/o of dyspnea and palpitations; she was admitted for evaluation of new-onset A fib and acute COPD PLAN: #. New onset Paroxysmal Atrial Fibrillation:(Most likely Hypoxia, Hypercarbia) Plan: -Pt's heart rate was going down to <60- Her Lopressor (Metoprolol) was D/C'd and hold parameters were added on her Cardizem. -Pt continues Diltiazem 30 mg PO daily scheduled. -Pt continues Solumedrol 40 mg IV BID later today. -A 12 lead EKG and a BNP stat ordered. -Continue Spiriva. -Troponin -trending flat then trending down. -Pt is on Telemetry. -Patient is on Aspirin and Coumadin, daily INR. -Today's INR was 2.03- Lovenox was D/C'd. -ECHO shows: 1. Normal global left ventricular systolic function with mild concentric left ventricular hypertrophy. Assessment of the left ventricular diastolic function was not conclusive. 2. Aortic valve sclerosis with trivial aortic stenosis, but no aortic regurgitation. 3. Mitral annulus calcification with moderate mitral stenosis and [id number] mitral regurgitation. The left atrium is mildly enlarged. 4. Moderate tricuspid regurgitation with moderate pulmonary hypertension. 5. There were some findings of elevated central venous pressure, the inferior vena cava was mildly enlarged. -Pt has a CHADVASc score of 6. -Because of a valvular At Fib according to her ECHO done in May, she is on Coumadin. -Her Aggrenox was changed to aspirin given risk of bleeding- This was discussed with the family. They state understanding. #. Acute exacerbation of COPD: -Clinically she has increased work of breathing with tachypnea Plan: -ABG at 9:00 am 07/27/20- pCO2 was 62- Dose of steroid increased to 60 mg iv bid. -Repeat ABG at 4:00 pm 07/27/20 showed pCO2 of 45. -Pt is on 40 mg I/V Solumedrol. -supplemental O2 / continuous pulse oximetry / aspiration precautions / continue with Montelukast & Spiriva / solumedrol. -Levo-albuterol discontinued. #. History of Chronic O2 Dependent Respiratory Failure: -Plan: -supplemental O2 on 3L of Home Oxygen. #. Chronic Diastolic CHF / Chronic HTN Plan: -Due to her consistently worsening crackles at lung bases-40 mg I/V Lasix, one dose was given at 5:00 pm today. -f/u I's and O's and daily weights -restrict sodium to 2G # NIDDM Last A1C 6.6 in 2016 Plan: f/u accu checks - hypoglycemia protocol / sliding scale insulin # Depression Plan: Continue venlafaxine # Debility Plan: PT consult for early mobilization # Macrocytic anemia Likely 2/2 COPD Plan: f/u CBC GI Prophylaxis: Pt is on a PPI. DVT PROPHYLAXIS: n/a on AC for A fib. VS,Fishbone, I+O VS, Fishbone, I+O Laboratory Tests 07/29/20 04:33 Vital Signs Date Time Temp Pulse Resp B/P (MAP) Pulse Ox O2 Delivery O2 Flow Rate FiO2 07/29/20 08:00 96.0 62 24 145/78 (100) 100 Nasal Cannula 4.0 I&O- Last 24 Hours up to 6 AM 07/29/20 06:00 Intake Total 480 ml Output Total 300 ml Balance 180 ml GME ATTESTATION GME ATTESTATION My faculty preceptor for this patient encounter was physically present during the encounter and was fully available. All aspects of the patient interview, examination, medical decision making process, and medical care plan development were reviewed and approved by the faculty preceptor. The faculty preceptor is aware and concurs with the plan as stated in the body of this note and will attest to such by his/her cosignature. ATTENDING NOTE Patient was seen and examined by me personally with the residents and I agree with the above assessment and plan Romario Smith MD Jul 29, 2020 11:09 NKECHI BAKER MD Aug 03, 2020 14:40
--- NOTE | 2020-07-29 14:50 | ECHO ---
DATE OF PROCEDURE: 07/27/2020 Age: 80 REFERRING PROVIDER: Maribel Cartagena MD PATIENT LOCATION: Room 3222 REASON FOR STUDY: Atrial fibrillation. 2D MEASUREMENTS: IVS 1.3 cm LV 4.5 cm LVPW 1.2 cm LA 4.4 cm Aortic root 2.8 cm Ascending aorta 3.3 cm RV 2.7 cm IVC 2.0 cm DOPPLER MEASUREMENT Peak velocity across the aortic valve 1.7 mm/s Peak velocity across the LVOT 1.4 mm/s Peak gradient across the aortic valve 11 mmHg Mean gradient across the aortic valve 6 mmHg Peak gradient across the mitral valve 15 mmHg Mean gradient across the mitral valve 8 mmHg Maximal tricuspid valve velocity 3.1 mm/s 2D COMMENTS: 1. Normal left ventricular size with mildly increased left ventricular wall thickness. Left ventricular systolic function is normal, estimated at 60% to 65%. 2. Mildly enlarged left atrium. Normal right atrium and right ventricle. 3. The atrial septum appeared to be normal without evidence of defect or shunt. 4. Normal aortic root and ascending aorta. 5. No pericardial effusion seen. 6. The aortic valves are mildly calcified with minimally restricted leaflet motion noted on limited views. Moderately calcified mitral annulus, the anterior valve mitral valve leaflet motion was not well visualized. 7. Normal tricuspid valve and pulmonic valve. The proximal pulmonary artery branches also appear to be normal. 8. The inferior vena cava was mildly enlarged, central venous pressure mildly elevated. DOPPLER: It detects [id number] mitral regurgitation, moderate tricuspid regurgitation. The calculated pulmonary artery systolic pressure varies between 40 to 50 mmHg. Assessment of the left ventricular diastolic function was limited in view of the underlying atrial fibrillation. IMPRESSION: 1. Normal global left ventricular systolic function with mild concentric left ventricular hypertrophy. Assessment of the left ventricular diastolic function was not conclusive. 2. Aortic valve sclerosis with trivial aortic stenosis, but no aortic regurgitation. 3. Mitral annulus calcification with moderate mitral stenosis and jnfcrjpr-ja-tfigeb mitral regurgitation. The left atrium is mildly enlarged. 4. Moderate tricuspid regurgitation with moderate pulmonary hypertension. 5. There were some findings of elevated central venous pressure, the inferior vena cava was mildly enlarged. MTDD
[2020-07-29] MEDS ORDERED: FUROSEMIDE 40MG/4ML VIAL (J1940) IV STA (16:25)
[2020-07-29] MEDS ORDERED: WARFARIN SOD 3MG TAB PO SCH (17:00)
[2020-07-29 17:26] LABS: ALBUMIN 3.5 GM/DL (3.2-5.2); BILIRUBIN,TOTAL 0.4 MG/DL (0.2-1.0); CALCIUM LEVEL 7.9 MG/DL (8.8-10.2); CREATININE FOR GFR 1.68 MG/DL (0.55-1.30); GLOMERULAR FILTRATION RATE 31.4 (>39); TOTAL PROTEIN 6.3 GM/DL (6.4-8.2)
[2020-07-29] MEDS ORDERED: FUROSEMIDE 40MG/4ML VIAL (J1940) IV ONE (21:30)
[2020-07-29] MEDS ORDERED: LEVALBUTEROL 1.25 MG/0.5 ML CONCENTRATE NEB INH PRN (21:30)
[2020-07-29 21:52] LABS: ABG BASE EXCESS 1.3 (-2.0-2.0); ABG HCO3 28.9 MEQ/L (22.0-26.0); ABG O2 SATURATION 98.3 % (95.0-99.0); ABG PARTIAL PRESSURE CO2 60.7 mmHg (35.0-45.0); ABG PARTIAL PRESSURE O2 123.2 mmHg (75.0-100.0); ABG STANDARD HCO3 25.7 MEQ/L (22.0-26.0); ABG TOTAL CO2 30.8 MEQ/L (23.0-31.0); ABG pH (ARTERIAL) 7.296 UNITS (7.350-7.450)
[2020-07-29] MEDS: MONTELUKAST 10 MG TAB PO SCH (22:05)
--- NOTE | 2020-07-29 23:15 | REPVR ---
PROCEDURE INFORMATION: Exam: XR Chest, 1 View Exam date and time: 07/29/2020 10:56 PM Age: 80 years old Clinical indication: Other: Worstening SOB; Additional info: Increased SOB TECHNIQUE: Imaging protocol: XR of the chest Views: 1 view. COMPARISON: CR PORTABLE CHEST X-RAY 2020-07-27 13:37 FINDINGS: Limitations: Limited by patient's body habitus. Lungs: Increased bilateral lower lung opacities. Pleural space: Unremarkable. No pleural effusion. No pneumothorax. Heart/Mediastinum: Moderate hiatal hernia. Moderate cardiac enlargement. Vasculature: Pulmonary artery enlargement. Bones/joints: Unremarkable. IMPRESSION: 1. Increased bilateral lower lung opacities. 2. Moderate hiatal hernia. Electronically signed by: Antonio Barth On 07/29/2020 23:14:51 PM
[2020-07-29] MEDS: LEVALBUTEROL 1.25 MG/0.5 ML CONCENTRATE NEB INH SCH (23:31)
[2020-07-30] VITALS (7 sets, daily range): BP systolic 109–161; BP diastolic 60–97
[2020-07-30] MEDS ORDERED: LevoFLOXacin IV 500 MG in IV 1 EA IV SCH ×2
[2020-07-30] MEDS: LEVALBUTEROL 1.25 MG/0.5 ML CONCENTRATE NEB INH SCH ×5 (03:50→20:00)
[2020-07-30] MEDS: SLF 3 ML SYR IV SCH ×3 (04:14→20:56)
[2020-07-30] MEDS ORDERED: MEROPENEM INJ 500 MG in IV 1 EA IV SCH (06:00)
[2020-07-30 06:16] LABS: HEMATOCRIT 35.6 % (36.0-47.0); HEMOGLOBIN 10.7 g/dl (12.0-15.5); MEAN CORPUSCULAR HEMOGLOBIN 29.2 pg (27.0-33.0); MEAN CORPUSCULAR HGB CONC 30.1 g/dl (32.0-36.5); PLATELET COUNT, AUTOMATED 298 10^3/uL (150-450); RED BLOOD COUNT 3.67 10^6/uL (4.00-5.40); WHITE BLOOD COUNT 8.8 10^3/uL (4.0-10.0)
[2020-07-30 06:28] LABS: INR 3.43; PROTHROMBIN TIME 35.4 SECONDS (11.8-14.0)
[2020-07-30 06:48] LABS: ALBUMIN 3.2 GM/DL (3.2-5.2); BILIRUBIN,TOTAL 0.6 MG/DL (0.2-1.0); CALCIUM LEVEL 7.8 MG/DL (8.8-10.2); CREATININE FOR GFR 1.72 MG/DL (0.55-1.30); GLOMERULAR FILTRATION RATE 30.5 (>39); POTASSIUM SERUM 4.7 MEQ/L (3.5-5.1); TOTAL PROTEIN 6.3 GM/DL (6.4-8.2)
[2020-07-30] MEDS: TIOTROPIUM INHALER/CAPSULE (SPIRIVA) INH SCH (08:02)
[2020-07-30] MEDS: SYMBICORT 160/4.5MCG INHALER 6GM INH SCH ×2 (08:02→20:03)
[2020-07-30] MEDS: HumaLOG INSULIN (NovoLOG) PER UNIT SC SCH ×4 (08:38→20:56)
[2020-07-30] MEDS: PANTOPRAZOLE 40MG TAB (PROTONIX) PO SCH (08:39)
[2020-07-30] MEDS: VENLAFAXINE **XR** 75MG CAPSULE PO SCH (08:39)
[2020-07-30] MEDS: methylPREDNISolone 40MG 1ML VIAL IV SCH ×3 (08:39→23:15)
[2020-07-30] MEDS: ASPIRIN 81 MG ENTERIC TAB PO SCH (08:40)
[2020-07-30] MEDS ORDERED: FUROSEMIDE 40MG/4ML VIAL (J1940) IV SCH (09:00)
--- NOTE | 2020-07-30 15:08 | IPNPDOC ---
Text Note Date of Service The patient was seen on 07/30/20. NOTE S: Pt is a 80 year old female with a past history of COPD(on 3L Home Oxygen) oral Steroid dependant(10 mg oral Prednisone), Chronic Oxygen dependant Respiratory failure, Grade 1 diastolic heart failure presented to the emergency department with the chief complaint of worsening dyspnea and dizziness since last (5 days), she was managing it fine until yesterday when she was visiting her son and exerted a little more than usual which worsened her condition and forced her to come to the ED this morning. She denies any fever, cough, chest pain, orthopnea, PND. She has had recurrent episodes of hospitalizations before but this time its worse. -The patient states that she is feeling much better, breathing seems better. Still gets sleepy during the day. O: GENERAL-Patient looks awake but oriented to time place and person, she is saturating 100 % on 4L nasal cannula. HEENT: EOMI, lips not cyanotic, nasal cannula in place, EOMI. CVS:normal heart sounds, no murmur RESP: using accessory muscles of respiration, Breath sounds diminished bilaterally, some B/L crackles and wheezing heard in the bases. ABDOMEN: Non distended, non tender. Bowel sounds +, Tympanitic on percussion. No organomegaly felt MUSCULOSKELETAL:No joint pain and swelling. EXTREMITIES: +1 edema bilaterally. NEUROLOGICAL: CN 2-12 intact. good motor strength, sensations intact. PSYCHIATRY: Normal affect and mood. Had a few episodes of hallucinations. ASSESSMENT & PLAN: Mrs Moran is a 79-year-old with a hx of COPD, O2 & steroid dependence, IDDM , CVA, depression, HTN, steroid induce osteoporosis, chronic diastolic CHF & pulmonary hypertension, who presented with c/o of dyspnea and palpitations; she was admitted for evaluation of new-onset A fib and acute COPD PLAN: #. New onset Paroxysmal Atrial Fibrillation:(Most likely Hypoxia, Hypercarbia) Plan: -Pt's heart rate is under control. Stay between 80-90. -Pt continues Diltiazem 30 mg PO daily scheduled. -Pt continues Solumedrol 40 mg IV BID later today. -Pt is on Telemetry. -Patient is on Aspirin and Coumadin, daily INR.-INR today was supra therapeutic Coumadin held for a day. -ECHO shows: 1. Normal global left ventricular systolic function with mild concentric left ventricular hypertrophy. Assessment of the left ventricular diastolic function was not conclusive. 2. Aortic valve sclerosis with trivial aortic stenosis, but no aortic regurgitation. 3. Mitral annulus calcification with moderate mitral stenosis and mzppxqtr-zc-sauwhv mitral regurgitation. The left atrium is mildly enlarged. 4. Moderate tricuspid regurgitation with moderate pulmonary hypertension. 5. There were some findings of elevated central venous pressure, the inferior vena cava was mildly enlarged. -Pt has a CHADVASc score of 6. #. Acute exacerbation of COPD: -Clinically she has increased work of breathing with tachypnea Plan: -ABG at 9:00 am 07/27/20- pCO2 was 62- Dose of steroid increased to 60 mg iv bid. -Repeat ABG at 4:00 pm 07/27/20 showed pCO2 of 45. -Pt is on 40 mg I/V Solumedrol. -supplemental O2 / continuous pulse oximetry / aspiration precautions / continue with Montelukast & Spiriva / solumedrol. Due to patient's progression of shortness of breath a chest x-ray was ordered and found to have bilateral basal opacities Patient is started on IV Levaquin 250 mg. #. History of Chronic O2 Dependent Respiratory Failure: -Plan: -supplemental O2 on 3L of Home Oxygen. #. Chronic Diastolic CHF / Chronic HTN Plan: -Due to her consistently worsening crackles at lung bases-patient started on a daily dose of IV Lasix 40 mg twice a day -f/u I's and O's and daily weights -restrict sodium to 2G # NIDDM Last A1C 6.6 in 2016 Plan: f/u accu checks - hypoglycemia protocol / sliding scale insulin # Depression Plan: Continue venlafaxine # Debility Plan: PT consult for early mobilization # Macrocytic anemia Likely 2/2 COPD Plan: f/u CBC GI Prophylaxis: Pt is on a PPI. DVT PROPHYLAXIS: n/a on AC for A fib. VS,Fishbone, I+O VS, Fishbone, I+O Laboratory Tests 07/29/20 16:36 07/30/20 05:46 Vital Signs Date Time Temp Pulse Resp B/P (MAP) Pulse Ox O2 Delivery O2 Flow Rate FiO2 07/30/20 12:00 97.4 80 24 134/60 (84) 99 Nasal Cannula 3.0 I&O- Last 24 Hours up to 6 AM 07/30/20 06:00 Intake Total 640 ml Output Total 1550 ml Balance -910 ml GME ATTESTATION GME ATTESTATION My faculty preceptor for this patient encounter was physically present during the encounter and was fully available. All aspects of the patient interview, examination, medical decision making process, and medical care plan development were reviewed and approved by the faculty preceptor. The faculty preceptor is aware and concurs with the plan as stated in the body of this note and will attest to such by his/her cosignature. ATTENDING NOTE Patient was seen and examined by me personally with the residents and I agree with the above assessment and plan Romario Smiht MD Jul 30, 2020 15:08 NKECHI BAKER MD Aug 03, 2020 14:44
[2020-07-30] MEDS: MONTELUKAST 10 MG TAB PO SCH (20:54)
[2020-07-30] MEDS: LevoFLOXacin IV 250 MG in IV 1 EA IV SCH (23:15)
[2020-07-31] VITALS (8 sets, daily range): BP systolic 108–136; BP diastolic 55–93
[2020-07-31] MEDS: LEVALBUTEROL 1.25 MG/0.5 ML CONCENTRATE NEB INH SCH ×3 (01:17→07:28)
[2020-07-31] MEDS: METOPROLOL 5 MG/5 ML VIAL IV SCH ×3 (03:42→04:00)
[2020-07-31 04:20] LABS: HEMATOCRIT 35.6 % (36.0-47.0); HEMOGLOBIN 10.9 g/dl (12.0-15.5); MEAN CORPUSCULAR HGB CONC 30.6 g/dl (32.0-36.5); MEAN CORPUSCULAR VOLUME 94.7 fl (80.0-96.0); PLATELET COUNT, AUTOMATED 338 10^3/uL (150-450); RED BLOOD COUNT 3.76 10^6/uL (4.00-5.40); WHITE BLOOD COUNT 11.5 10^3/uL (4.0-10.0)
[2020-07-31 04:31] LABS: INR 3.17; PROTHROMBIN TIME 33.2 SECONDS (11.8-14.0)
[2020-07-31 04:49] LABS: ALBUMIN 3.3 GM/DL (3.2-5.2); BILIRUBIN,TOTAL 0.7 MG/DL (0.2-1.0); CALCIUM LEVEL 7.6 MG/DL (8.8-10.2); CREATININE FOR GFR 1.27 MG/DL (0.55-1.30); GLOMERULAR FILTRATION RATE 43.3 (>39); TOTAL PROTEIN 6.7 GM/DL (6.4-8.2)
[2020-07-31] MEDS: SLF 3 ML SYR IV SCH ×3 (05:01→22:35)
[2020-07-31] MEDS: TIOTROPIUM INHALER/CAPSULE (SPIRIVA) INH SCH (07:28)
[2020-07-31] MEDS: SYMBICORT 160/4.5MCG INHALER 6GM INH SCH ×2 (07:28→20:00)
[2020-07-31] MEDS: HumaLOG INSULIN (NovoLOG) PER UNIT SC SCH ×4 (07:30→22:34)
[2020-07-31] MEDS: methylPREDNISolone 40MG 1ML VIAL IV SCH ×2 (09:19→16:00)
[2020-07-31] MEDS: ASPIRIN 81 MG ENTERIC TAB PO SCH (09:20)
[2020-07-31] MEDS: PANTOPRAZOLE 40MG TAB (PROTONIX) PO SCH (09:20)
[2020-07-31] MEDS: VENLAFAXINE **XR** 75MG CAPSULE PO SCH (09:20)
[2020-07-31] MEDS ORDERED: METOPROLOL 5 MG/5 ML VIAL IV PRN (10:00)
--- NOTE | 2020-07-31 13:50 | IPNPDOC ---
Text Note Date of Service The patient was seen on 07/31/20. NOTE She was seen and examined by me this morning with the residents. The patient was sitting on the chair having her breakfast. States that she had a good night and is feeling much better. She did convert back to A. fib last night with heart rates ranging between 90-120. Her Cardizem dose was increased by the night physicians to 60 every 6. No other overnight events. Physical examination GENERAL-Patient looks awake but oriented to time place and person, she is saturating 100 % on 4L nasal cannula. HEENT: EOMI, lips not cyanotic, nasal cannula in place, EOMI. CVS:normal heart sounds, no murmur RESP: using accessory muscles of respiration, Breath sounds diminished bilatera lly, some B/L crackles and wheezing heard in the bases. ABDOMEN: Non distended, non tender. Bowel sounds +, Tympanitic on percussion. No organomegaly felt MUSCULOSKELETAL:No joint pain and swelling. EXTREMITIES: +1 edema bilaterally. NEUROLOGICAL: CN 2-12 intact. good motor strength, sensations intact. PSYCHIATRY: Normal affect and mood. Had a few episodes of hallucinations. Medications as below Labs reviewed as below Assessment and plan She is a 80 year old female with a past history of COPD(on 3L Home Oxygen) oral Steroid dependant(10 mg oral Prednisone), Chronic Oxygen dependant Respiratory failure, Grade 1 diastolic heart failure presented to the emergency department with the chief complaint of worsening dyspnea and that is the reason she came to the hospital. . 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 Also, when she presented she had exhausted her o xygen, and stated that that also exacerbated her symptoms and on her arrival to the hospital, was found to be in A. fib and RVR. The patient was given metoprolol 25 twice a day and the patient's heart rate were in upper 120s. On review of her previous EKGs, she was found to have multifocal atrial tachycardia as a precursor of the atrial tachycardias. A. fib and flutter and a repeat 2-D echo was done which again showed that the patient was having moderate pulmonary hypertension with PA pressures of 50 along with mitral valve sclerosis. . She initially was on Cardizem and Lopressor with which her heart rate dropped below 60 and for that reason, Lopressor was discontinued. Currently, she was on 30 every 6 of Lopressor which has been increased today to 60 every 6 and heart rates have been in low 90s. In my opinion, and extended- release 240 of it is and will be optimal therapy for her. Again, as the patient has this A. fib flutter which is valvular in nature. Oral anti-comments were not started and she has been started on Coumadin and currently she has obtained a therapeutic INR. The goal is to have the heart rate below 90 persistently for 24 hours and then she can be discharged home on Cardizem and Coumadin. 1. New onset Paroxysmal Atrial Fibrillation:(Most likely Hypoxia, Hypercarbia) and now possible pneumonia as well. Continue Cardizem 60 every 6 and when necessary Lopressor 5 IV has been started with holding parameters. The patient continues to be on Coumadin as well. As it is non-valvular afib novel oral anticoagulants are not being used. Daily INR checks. Today dose of Coumadin will be held as the patient has supratherapeutic INR. We will resume her Coumadin at a lower dose, possibly 3 mg tomorrow if the INR is below 3. Also to rule out any other structural heart disease. 2-D echo was repeated which shows that patient has normal EF, but moderate to severe mitral regurgitation 2. Acute exacerbation of COPD: Could be secondary to a viral versus bacterial pneumonia. The patient has been on her baseline home oxygen. Dual nebs were initially started but now have been only changed to short-acting muscarinic as the patient gives and flipping into A. fib RVR. We will need to optimize her inhalers on discharge. Continue oxygen to maintain saturation about 92. Kayden to 40 twice a day has been continued and will de-escalate soon. 3. Chronic Diastolic CHF / Chronic HTN : Got 2 doses of IV Lasix 40 mg, and currently looks very euvolemic. Lasix has been on hold. 2 g sodium restriction. I and O's and daily weights. 4. NIDDM : accu checks - hypoglycemia protocol / sliding scale insulin. . We will readdress her insulin on discharge. GI Prophylaxis: Pt is on a PPI. DVT PROPHYLAXIS: Coumadin Disposition likely home in the next 24-48 hours. VS,Fishbone, I+O VS, Fishbone, I+O Laboratory Tests 07/31/20 04:10 Vital Signs Date Time Temp Pulse Resp B/P (MAP) Pulse Ox O2 Delivery O2 Flow Rate FiO2 07/31/20 08:00 97.1 117 20 116/83 (94) 99 Nasal Cannula 3.0 I&O- Last 24 Hours up to 6 AM 07/31/20 06:00 Intake Total 790 ml Output Total 2325 ml Balance -1535 ml NKECHI BAKER MD Jul 31, 2020 12:19
[2020-07-31] MEDS: MONTELUKAST 10 MG TAB PO SCH (22:32)
[2020-08-01] VITALS: BP 139/67
[2020-08-01] MEDS: methylPREDNISolone 40MG 1ML VIAL IV SCH ×2 (00:31→08:27)
[2020-08-01] MEDS: LevoFLOXacin IV 250 MG in IV 1 EA IV SCH (00:31)
[2020-08-01 04:00] VITALS: BP_SYST 144; BP_DIAS 67; BP_DIAS 7
[2020-08-01 05:15] LABS: HEMATOCRIT 36.5 % (36.0-47.0); MEAN CORPUSCULAR HEMOGLOBIN 28.9 pg (27.0-33.0); MEAN CORPUSCULAR HGB CONC 30.1 g/dl (32.0-36.5); MEAN CORPUSCULAR VOLUME 95.8 fl (80.0-96.0); PLATELET COUNT, AUTOMATED 338 10^3/uL (150-450); RED BLOOD COUNT 3.81 10^6/uL (4.00-5.40); WHITE BLOOD COUNT 12.2 10^3/uL (4.0-10.0)
[2020-08-01 05:26] LABS: INR 2.5; PROTHROMBIN TIME 27.5 SECONDS (11.8-14.0)
[2020-08-01 05:37] LABS: ALBUMIN 3.2 GM/DL (3.2-5.2); ALT/SGPT 120 U/L (12-78); BILIRUBIN,TOTAL 0.9 MG/DL (0.2-1.0); BLOOD UREA NITROGEN 58 MG/DL (7-18); CALCIUM LEVEL 6.3 MG/DL (8.8-10.2); CARBON DIOXIDE LEVEL 42 MEQ/L (21-32); CHLORIDE LEVEL 98 MEQ/L (98-107); CREATININE FOR GFR 0.95 MG/DL (0.55-1.30); GLOMERULAR FILTRATION RATE > 60.0 (>39); GLUCOSE, FASTING 203 MG/DL (70-100); SODIUM LEVEL 139 MEQ/L (136-145); TOTAL PROTEIN 6.3 GM/DL (6.4-8.2)
[2020-08-01] MEDS: SLF 3 ML SYR IV SCH ×2 (06:43→14:00)
[2020-08-01] MEDS ORDERED: CALCIUM CARBONATE 500 MG CHEW U/D PO STA (07:17)
[2020-08-01] MEDS: TIOTROPIUM INHALER/CAPSULE (SPIRIVA) INH SCH (07:21)
[2020-08-01] MEDS: SYMBICORT 160/4.5MCG INHALER 6GM INH SCH (07:22)
[2020-08-01 07:48] LABS: MAGNESIUM LEVEL 3.2 MG/DL (1.8-2.4); PHOSPHORUS LEVEL 2.7 MG/DL (2.5-4.9)
[2020-08-01 08:00] VITALS: BP 117/68
[2020-08-01] MEDS: VENLAFAXINE **XR** 75MG CAPSULE PO SCH (08:25)
[2020-08-01] MEDS: PANTOPRAZOLE 40MG TAB (PROTONIX) PO SCH (08:25)
[2020-08-01] MEDS: ASPIRIN 81 MG ENTERIC TAB PO SCH (08:27)
[2020-08-01] MEDS: HumaLOG INSULIN (NovoLOG) PER UNIT SC SCH ×2 (08:28→12:00)
[2020-08-01] MEDS ORDERED: JANT3TAB PO (09:02)
[2020-08-01] MEDS ORDERED: LEVO250T12 PO (09:02)
[2020-08-01] MEDS ORDERED: DILT240C82 PO (09:02)
[2020-08-01] MEDS ORDERED: PRED10TA2 PO ×2 (09:02→13:53)
[2020-08-01 09:13] VITALS: BP 144/67
--- NOTE | 2020-08-01 09:19 | IPNPDOC ---
Text Note Date of Service The patient was seen on 08/01/20. NOTE HPI: Patient was sitting on the chair eating her breakfast while eating breakfast. She reported that her breathing is good, denies any dyspnea; stated that she her cough is productive. Denies any fever, chills, chest pain, palpitation, abdominal pain, diarrhea, or constipation. Patient converted back to sinus rhythm yesterday afternoon. She is currently in rate controlled a. fib with HR in the 70s at the time of examination. ROS: General: Denies any fever or chills Heart: Denies CP or palpitations Lungs: Denies dyspnea. Pos for productive cough Abdomen: Denies abd pain, diarrhea/constipation Physical examination GENERAL-Patient is alert and awake, not in acute distress, comfortable and pleasant, cooperative. HEENT: Head normocephalic, atraumatic, mucosa moist and pink, nasal cannula in place CVS:normal heart sounds, irregularly irregular rhythm RESP: only minimal accessory muscle use, Breath sounds diminished bilaterally, minimal b/l wheezing aus in the bases. ABDOMEN: Soft, non distended, non tender. Bowel sounds aus in all 4 quadrants EXTREMITIES: trace edema in b/l LE bilaterally. NEUROLOGICAL: Memory and cognitive function grossly intact PSYCHIATRY: Normal affect and mood. No obvious hallucination or delusions noted Assessment and plan: She is a 80 year old female with PMH of COPD(on 3L Home Oxygen) dependent on PO 10 mg Prednisone with chronic oxygen dependant respiratory failure, grade 1 diastolic heart failure presented ER d/t worsening dyspnea. 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 Upon hospital arrival pt was found to have A. fib and RVR. The patient was given metoprolol 25 twice a day and the patient's HR were in 120s. On review of her previous EKGs, pt had multifocal atrial tachycardia as a precursor of the atrial tachycardias. A. fib and a. flutter and a repeat 2-D echo showed moderate pulmonary hypertension with PA pressures of 50 along with mitral valve sclerosis. Anticoagulation were started with lovenox bridging to Coumadin and pt had obtained a therapeutic INR. Resume Warfarin 3mg QD. Pt currently asymptomatic with rate controlled a.fib. Pending PT clearance. HSE ordered. 1. New onset Paroxysmal Atrial Fibrillation most likely 2/2 hypoxia, hypercarbia and possible pneumonia as well. Continue Cardizem 60mg Q6H and Lopressor 5 mg IV Q6H PRN has been started with holding parameters. Warfarin.adjustment, INR now therapeutic range, resume Warfarin 3mg QD with daily INR. As prior echo showed possible rheumatic heart dz avoid NOAC. 2. Acute exacerbation of COPD: Could be 2/2 a viral versus bacterial pneumonia. The patient has been on her home 3L oxygen. Dual nebs were initially started but now have been only changed to short-acting muscarinic d/t intermittent A. fib with RVR. We will need to optimize her inhalers on discharge. Continue oxygen therapy. Breathing status greatly improved; titrate down solumedrol. 3. Chronic Diastolic CHF / Chronic HTN : Continue 2 g sodium restriction. I and O's and daily weights. 4. NIDDM : glucose checks ACHS, hypoglycemia protocol / sliding scale insulin ACHS. Will readdress her insulin on discharge. GI Prophylaxis: Pt is on a PPI. DVT PROPHYLAXIS: pt on Coumadin for a. fib VS,Fishbone, I+O VS, Fishbone, I+O Laboratory Tests 08/01/20 04:38 Vital Signs Date Time Temp Pulse Resp B/P (MAP) Pulse Ox O2 Delivery O2 Flow Rate FiO2 08/01/20 06:45 144/67 08/01/20 04:00 96.9 73 18 98 Nasal Cannula 3.0 I&O- Last 24 Hours up to 6 AM 08/01/20 06:00 Intake Total 1020 ml Output Total 1950 ml Balance -930 ml KEITH GUZMAN DO Aug 01, 2020 09:19
[2020-08-01] MEDS ORDERED: OS-CTAB PO (11:10)
[2020-08-01] MEDS: CALCIUM CARBONATE 500 MG CHEW U/D PO SCH ×2 (11:13→15:05)
[2020-08-01 12:00] VITALS: BP 145/75
--- NOTE | 2020-08-01 13:10 | DS.PDOC ---
Discharge Summary General Date of Admission Jul 27, 2020 at 05:12 Date of Discharge 08/01/2020 Discharge Summary PROCEDURES PERFORMED DURING STAY: [None]. ADMITTING DIAGNOSES: 1.New onset vs Paroxysmal Atrial Fibrillation 2 SIRS 3 Acute COPD 4. Chronic O2 Dependent Respiratory Failure 5 hx of CVA 6 Chronic Diastolic CHF / Chronic HTN 7 NIDDM 8 Depression 9 Debility 10 Macrocytic anemia DISCHARGE DIAGNOSES: 1. New onset Paroxysmal Atrial Fibrillation most likely 2/2 hypoxia, hypercarbia and possible pneumonia 2. Acute exacerbation of COPD, stabilized 3. Chronic Diastolic CHF 4. Chronic HTN 5. NIDDM 6. Hypocalcemia 7. Moderate to severe mitral regurgitation on heart echo 8. hx of CVA 9 Debility 10 Macrocytic anemia COMPLICATIONS/CHIEF COMPLAINT: Shortness of breath HISTORY OF PRESENT ILLNESS: Pt is a 80 year old female with PMH of COPD (on 3L Home Oxygen) dependent on PO 10 mg Prednisone with chronic oxygen dependant respiratory failure, grade 1 diastolic heart failure presented ER d/t worsening dyspnea.She also reported transient dizziness, but denies having Chest pain,sick contacts,lower extremity swelling, or palpitations at the time of admission. HOSPITAL COURSE: Upon hospital arrival pt was found to have A. fib and RVR. Because her EKG showed Afib w RVR she was given 200mg of PO flecanide and 75 mg of PO metoprolol tartrate upon admission. Patient was continued on rate controlling agents including lopressor and diltiazem and maintained on diltiazem only. On review of her previous EKGs, pt had multifocal atrial tachycardia as a precursor of the atrial tachycardias. A. fib and a. flutter and a repeat 2-D echo showed moderate pulmonary hypertension with PA pressures of 50 along with mitral valve sclerosis. 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 Pt had labored breathing during hospitalization and CXR showed opacities thus was started on Meropenem and Levofloxacin by night team, and meropenem was later d/c. Patient's breathing status improved and she sat well on home 3L NC. On the day of discharge, pt denies any dyspnea; stated that she her cough is productive. Denies any fever, chills, chest pain, palpitation, abdominal pain, diarrhea, or constipation. Pt is in rate controlled a. fib with HR in the 70s at the time of examination. Pt currently asymptomatic with rate controlled a.fib. HSE ordered and pt was cleared to be d/c home with home service. DISCHARGE MEDICATIONS: Please see below. ALLERGIES: Please see below. PHYSICAL EXAMINATION ON DISCHARGE: VITAL SIGNS: Please see below. GENERAL-Patient is alert and awake, not in acute distress, comfortable and pleasant, cooperative. HEENT: Head normocephalic, atraumatic, mucosa moist and pink, nasal cannula in place CVS:normal heart sounds, irregularly irregular rhythm RESP: Breath sounds diminished bilaterally, minimal b/l wheezing aus in the bases, no crackles / rhonchi ABDOMEN: Soft, non distended, non tender. Bowel sounds aus in all 4 quadrants EXTREMITIES: No evidence of LE edema, no calf tenderness NEUROLOGICAL: Memory and cognitive function grossly intact PSYCHIATRY: Normal affect and mood. No obvious hallucination or delusions noted LABORATORY DATA: Please see below. IMAGING: CXR 07/29/2020 Increased bilateral lower lung opacities. Moderate hiatal hernia CXR 07/27/2020 Mild prominence of bronchovascular markings. No focal infiltrate CXR 07/27/2020 Lungs: Coarse bibasilar interstitium which is similar. Pleural space: Haziness in the costophrenic angles bilaterally which is unchanged. Stable chest since 05/25/2020. No acute interval infiltrates. PROGNOSIS: [Fair] ACTIVITY: [As tolerated]. DIET: [COPD diet with low fat low cholesterol] DISCHARGE PLAN: DISCHARGE PLAN AND INSTRUCTIONS: Please follow up with PCP in 7 days. Please have INR done in 2 days. Please take medication as prescribed. Please contact provider if there's any concern. Please see cardiology in 7 days for moderate to severe mitral valve regurgitation shown on echo. Return to the ER if you experience any problems ITEMS TO FOLLOWUP ON ON OUTPATIENT: 1. COPD 2. INR 3. Warfarin dosing 4. Hypocalcemia 5. Moderate to severe mitral regurgitation/evaluation for possible valve repair or replacement 6. Questionable rheumatic heart disease DISCHARGE CONDITION: [Improved]. TIME SPENT ON DISCHARGE: 38 minutes. Vital Signs/I&Os Vital Signs Date Time Temp Pulse Resp B/P (MAP) Pulse Ox O2 Delivery O2 Flow Rate FiO2 08/01/20 12:00 97.8 85 20 145/75 (98) 99 Nasal Cannula 3.0 I&O- Last 24 Hours up to 6 AM 08/01/20 06:00 Intake Total 1020 ml Output Total 1950 ml Balance -930 ml Laboratory Data Labs 24H Laboratory Tests 2 07/31/20 17:27: Bedside Glucose (Misc Panel) 152H 07/31/20 22:27: Bedside Glucose (Misc Panel) 400H 08/01/20 04:38: Nucleated Red Blood Cells % (auto) 0.2H, Prothrombin Time 27.5H, Prothromb Time International Ratio 2.50, Anion Gap , Glomerular Filtration Rate > 60.0, Calcium Level 6.3#L, Phosphorus Level 2.7, Magnesium Level 3.2H, Total Bilirubin 0.9, Aspartate Amino Transf (AST/SGOT) 26, Alanine Aminotransferase (ALT/SGPT) 120H, Alkaline Phosphatase 91, Total Protein 6.3L, Albumin 3.2, Albumin/Globulin Ratio 1.0L 08/01/20 07:36: Whole Blood Ionized Calcium 3.9L CBC/BMP Laboratory Tests 08/01/20 04:38 FSBS Laboratory Tests Test 07/31/20 17:27 07/31/20 22:27 Range/Units Bedside Glucose (Misc Panel) 152 400 83-110 MG/DL Microbiology Microbiology 07/30/20 Blood Culture - Preliminary, Resulted No Growth after 48 hours. All Specime... 07/30/20 Blood Culture - Preliminary, Resulted No Growth after 48 hours. All Specime... 07/27/20 Respiratory Virus Panel (PCR) (LETY) - Final, Complete 07/27/20 Blood Culture - Final, Complete NO GROWTH AFTER 5 DAYS Discharge Medications Scheduled Aspirin/Dipyridamole (Aggrenox 25 mg-200 mg Capsule) 1 Ea Capcr, 1 CAP PO BID, (Reported) Budesonide (Budesonide) 0.5 Mg/2 Ml Ampul.neb, 1 VIAL INH BID, (Reported) Budesonide/Formoterol (Symbicort 160-4.5 Mcg Inhaler) 60 Puff/Inhaler Aers, 2 PUFF INH BID, (Reported) Calcium Carbonate/Vitamin D3 (Os-Sb 500-Vit D3 600 Caplet) 1 Each Tablet, 1 TAB PO DAILY Carboxymethylcellulose Sodium (Refresh Tears) 0.5 % Je, 1 DROP OU DAILY, (Reported) Diltiazem HCl (Diltiazem 24Hr ER) 240 Mg Cap.er.24h, 1 CAP PO DAILY Gabapentin (Gabapentin) 600 Mg Tablet, 600 MG PO QID, (Reported) Levofloxacin (Levofloxacin) 250 Mg Tablet, 1 TAB PO DAILY Metformin HCl (Metformin HCl) 500 Mg Tab, 500 MG PO BID, (Reported) Montelukast Sodium (Singulair) 10 Mg Tab, 10 MG PO QHS, (Reported) Pantoprazole Sodium (Pantoprazole Sodium) 40 Mg Tablet.dr, 40 MG PO DAILY, (Reported) Prednisone (Prednisone) 10 Mg Tablet, 10 MG PO TAPER Take 4 tabs daily x 3 days, then 3 tabs daily x 3 days, then 2 tabs daily x 3 days, then 1 tab daily x 3 days and stop Risedronate Sodium (Actonel) 150 Mg Tab, 150 MG PO QMONTH, (Reported) TAKES THE FIRST OF THE MONTH Tiotropium [place] (Spiriva) 18 Mcg Cap, 1 PUFF INH DAILY, (Reported) Venlafaxine HCl (Venlafaxine HCl ER) 150 Mg Cap.er.24h, 150 MG PO DAILY, (Reported) Warfarin Sodium (Jantoven) 3 Mg Tablet, 3 MG PO DAILY@17 Scheduled PRN Albuterol Sulf (Albuterol Sulfate) 2.5 Mg/3 Ml Nebu, 1 VIAL INH Q4H PRN for SHORTNESS OF BREATH, (Reported) Albuterol Sulfate (Ventolin Hfa) 108 Mcg/Act Aer, 2 PUFFS INH Q4H PRN for SHORTNESS OF BREATH, (Reported) Fluticasone Propionate (Flonase Allergy Relief) 50 Mcg/Act Spr, 2 SPRAYS NARES DAILY PRN for CONGESTION, (Reported) Polyethylene Glycol 3350 (Miralax) 1 Pow Pow, 17 GM PO DAILY PRN for CONSTIPATION, (Reported) Sennosides/Docusate Sodium (Senna-S Tablet) 1 Tab Tab, 1 TAB PO DAILY PRN for CONSTIPATION, (Reported) Allergies Coded Allergies: chocolate flavor (Verified Allergy, Severe, throat tightens, 07/27/20) Penicillins (Verified Allergy, Mild, shakes, 07/27/20) clarithromycin (Verified Allergy, Mild, shakes, 07/27/20) clavulanic acid (Verified Allergy, Mild, shakes, 07/27/20) ipratropium (Verified Allergy, Mild, shakes, 07/27/20) pseudoephedrine (Verified Allergy, Mild, flushed , 07/27/20) GME ATTESTATION GME ATTESTATION My faculty preceptor for this patient encounter was physically present during the encounter and was fully available. All aspects of the patient interview, examination, medical decision making process, and medical care plan development were reviewed and approved by the faculty preceptor. The faculty preceptor is aware and concurs with the plan as stated in the body of this note and will attest to such by his/her cosignature. ATTENDING NOTE I, Hernando Niño, have independently examined this patient and performed my own physical exam, as well as reviewed the documentation and edited where necessary. I have discussed in detail with the resident / student the findings and plan of treatment as documented by the resident / student and edited their note. I agree with their findings and treatment plan and have edited their documentation. I will continue to follow the patient during this hospital stay. Time spent on discharge 35 minutes - Discussed instructions on discharge with the patient - Patient has been instructed to get blood work completed on 08/03 to follow-up her INR and adjust her Coumadin dose as per her PCP - Call the patient's son, Ang Moran and , Jatin Moran and communicated with them the discharge plan - Medications have been sent to her pharmacy - A she has been advised to follow-up with her primary care provider, and cardiology within 7 days - She has been advised to remain compliant with treatment plan and medications - Advised to return to the emergency room if they experience any problems KEITH GUZMAN DO Aug 01, 2020 13:09 HERNANDO NIÑO MD Aug 01, 2020 13:56
[2020-08-01] MEDS ORDERED: WARFARIN SOD 3MG TAB PO SCH (17:00)
[2020-08-01] MEDS ORDERED: methylPREDNISolone 125MG 2ML VIAL IV SCH (20:00)
[2020-08-03 10:14] LABS: TOTAL 25(OH) VITAMIN D 6.8 NG/ML (30.0-100.0)
--- NOTE | 2020-08-05 21:21 | ECGEPIP ---
[facility] - ED Test Date: 2020-07-27 Pat Name: FARSHAD RODRIGUEZ Department: Room: [place] [address] Gender: Female Supervisor [employer]: suzi : 1940 Requested By: PAZ GIRON Order Number: [id number] Reading MD: Zoe Paul Measurements Intervals [place] Rate: 124 P: [place]: 0 QRS: 59 QRSD: 80 T: 60 QT: 274 QTc: 395 Interpretive Statements ATRIAL FIBRILLATION WITH RAPID VENTRICULAR RESPONSE VOLTAGE CRITERIA FOR LVH ST DEVIATION AND MODERATE T-WAVE ABNORMALITY, CONSIDER LATERAL ISCHEMIA POOR R WAVE PROGRESSION NO PRIOR SEE SCANNED DOWNTIME REPORT
--- NOTE | 2020-08-08 18:49 | ECGEPIP ---
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
== END 2020-08-01 15:59 | disposition home health service (06) | DRG 309 ==
LOC: M ED 03:15 → M ED INP 05:12 → M PCU 08:21
PROVIDERS: ADMIT Internal Medicine; ATTEND Internal Medicine
DX: I48.0 Paroxysmal atrial fibrillation (principal); J96.10 Chronic respiratory failure, unspecified whether with hypoxia or hypercapnia; I50.32 Chronic diastolic (congestive) heart failure; J44.1 Chronic obstructive pulmonary disease with (acute) exacerbation; R65.10 Systemic inflammatory response syndrome (SIRS) of non-infectious origin without acute organ dysfunction; E11.40 Type 2 diabetes mellitus with diabetic neuropathy, unspecified; F32.9 Major depressive disorder, single episode, unspecified; I11.0 Hypertensive heart disease with heart failure; M81.8 Other osteoporosis without current pathological fracture; I08.3 Combined rheumatic disorders of mitral, aortic and tricuspid valves; D53.9 Nutritional anemia, unspecified; R53.81 Other malaise; I27.20 Pulmonary hypertension, unspecified; Z98.49 Cataract extraction status, unspecified eye; Z87.891 Personal history of nicotine dependence; Z86.73 Personal history of transient ischemic attack (TIA), and cerebral infarction without residual deficits; Z79.82 Long term (current) use of aspirin; Z79.52 Long term (current) use of systemic steroids; Z99.81 Dependence on supplemental oxygen; Z79.899 Other long term (current) drug therapy; Z88.0 Allergy status to penicillin; Z88.1 Allergy status to other antibiotic agents; Z88.8 Allergy status to other drugs, medicaments and biological substances; Z91.018 Allergy to other foods; Z79.84 Long term (current) use of oral hypoglycemic drugs

== ENCOUNTER → 2020-08-03 | Outpatient (CLI) | payer MEDICARE, OTHER ==
[~2020-08-03] MED LIST changes: +CALC600T66 PO; +DILT1TAB3 PO; +DILT240C82 PO; +JANT3TAB PO; +LEVO250T12 PO; +LOVE1INJ SC; +OS-CTAB PO; +PANT-23 PO; +SPIR12.9 INH; +VENL150C43 PO; +WARF4TAB51 PO
[2020-08-03 11:52] LABS: INR 2.13; PROTHROMBIN TIME 24.3 SECONDS (11.8-14.0)
== END ==
LOC: M LAB 10:46
PROVIDERS: ATTEND Internal Medicine
DX: Z79.01 Long term (current) use of anticoagulants (principal)

== ENCOUNTER 2020-08-18 13:25 | Inpatient (IN) | payer MEDICARE, OTHER ==
[~2020-08-18] VITALS: Ht 160 cm; Wt 67.3 kg
[~2020-08-18 13:25] MED LIST changes: -CALC600T66 PO; -DILT1TAB3 PO; -SPIR12.9 INH; -WARF4TAB51 PO
[2020-08-18 14:05] LABS: BASO % 0.3 % (0.0-1.0); EOS # 0.1 10^3/uL (0.0-0.5); EOS % 1.5 % (0.0-3.0); HEMATOCRIT 36.5 % (36.0-47.0); HEMOGLOBIN 10.6 g/dl (12.0-15.5); LYMPH # 0.8 10^3/uL (1.5-5.0); LYMPH % 12.3 % (24.0-44.0); MEAN CORPUSCULAR HEMOGLOBIN 28.9 pg (27.0-33.0); MEAN CORPUSCULAR VOLUME 99.5 fl (80.0-96.0); MONO # 0.6 10^3/uL (0.0-0.8); MONO % 8.7 % (0.0-5.0); NEUTROPHILS # 5.2 10^3/uL (1.5-8.5); NEUTROPHILS % 76.6 % (36.0-66.0); PLATELET COUNT, AUTOMATED 176 10^3/uL (150-450); RED BLOOD COUNT 3.67 10^6/uL (4.00-5.40); WHITE BLOOD COUNT 6.8 10^3/uL (4.0-10.0)
[2020-08-18 14:09] LABS: ABG BASE EXCESS 10.7 (-2.0-2.0); ABG HCO3 37.7 MEQ/L (22.0-26.0); ABG O2 SATURATION 99.7 % (95.0-99.0); ABG PARTIAL PRESSURE CO2 63.1 mmHg (35.0-45.0); ABG PARTIAL PRESSURE O2 215.4 mmHg (75.0-100.0); ABG STANDARD HCO3 34.5 MEQ/L (22.0-26.0); ABG TOTAL CO2 39.6 MEQ/L (23.0-31.0); ABG pH (ARTERIAL) 7.394 UNITS (7.350-7.450)
[2020-08-18] MEDS ORDERED: IPRATROPIUM 0.5MG/ALBUTEROL 2.5MG INH SOL UD 3ML (DUONEB) NEB ONE (14:15)
[2020-08-18] MEDS ORDERED: ALBUTEROL SULFATE 2.5 MG/0.5 ML INH NEB SOLN NEB ONE (14:15)
--- NOTE | 2020-08-18 14:19 | REPVR ---
PROCEDURE INFORMATION: Exam: XR Chest, 1 View Exam date and time: 08/18/2020 1:48 PM Age: 80 years old Clinical indication: Shortness of breath; Additional info: Dyspnea/cough TECHNIQUE: Imaging protocol: XR of the chest Views: 1 view. COMPARISON: CR PORTABLE CHEST X-RAY 07/29/2020 10:56 PM FINDINGS: Lungs: There are decreased interstitial and patchy airspace opacities at the bases. Pleural space: Unremarkable. No pleural effusion. No pneumothorax. Heart/Mediastinum: The cardiomediastinal silhouette is stable in appearance allowing for differences in positioning. Bones/joints: Degenerative changes again involve the spine and shoulders. IMPRESSION: Decreased interstitial and patchy airspace opacities at the lung bases as compared with 07/29/20, could reflect residual or recurrent pneumonia. Electronically signed by: Marvin Mistry On 08/18/2020 14:18:43 PM
[2020-08-18 14:41] LABS: ALBUMIN 2.7 GM/DL (3.2-5.2); BILIRUBIN,DIRECT 0.1 MG/DL (0.0-0.2); BILIRUBIN,TOTAL 0.5 MG/DL (0.2-1.0); BLOOD UREA NITROGEN 27 MG/DL (7-18); CALCIUM LEVEL 8.8 MG/DL (8.8-10.2); CARBON DIOXIDE LEVEL 39 MEQ/L (21-32); CHLORIDE LEVEL 98 MEQ/L (98-107); CPK CREATINE PHOSPHOKINASE 32 U/L (26-192); CREATININE FOR GFR 0.59 MG/DL (0.55-1.30); GLOMERULAR FILTRATION RATE > 60.0 (>39); GLUCOSE, FASTING 174 MG/DL (70-100); MB/CK RELATIVE INDEX 6.25 (< OR =4); POTASSIUM SERUM 4.1 MEQ/L (3.5-5.1); SODIUM LEVEL 139 MEQ/L (136-145); TOTAL PROTEIN 5.4 GM/DL (6.4-8.2); TROPONIN I < 0.02 NG/ML (< 0.10)
--- NOTE | 2020-08-18 15:29 | ECGEPIP ---
[facility] - ED Test Date: 2020-08-18 Pat Name: FARSHAD RODRIGUEZ Department: Room: - Gender: Female Manager Of Operations: [facility] [facility] : 1940 Requested By: ARIANA LINDSAY Order Number: [id number] Reading MD: Hunter Dinero Measurements Intervals [place] Rate: 85 P: 20 [place]: 120 QRS: 44 QRSD: 80 T: 18 QT: 346 QTc: 412 Interpretive Statements SINUS RHYTHM WITH OCCASIONAL VENTRICULAR PREMATURE COMPLEXES BASELINE ARTIFACT AFFECTS INTERPRETATION Electronically Signed on 08-18-2020 15:28:44 EDT by Hunter Dinero
[2020-08-18 15:33] VITALS: O2SAT 86
[2020-08-18 15:51] LABS: ABG BASE EXCESS 10.4 (-2.0-2.0); ABG O2 SATURATION 98.8 % (95.0-99.0); ABG PARTIAL PRESSURE O2 127.7 mmHg (75.0-100.0); ABG STANDARD HCO3 34.2 MEQ/L (22.0-26.0); ABG TOTAL CO2 38.8 MEQ/L (23.0-31.0); ABG pH (ARTERIAL) 7.407 UNITS (7.350-7.450)
[2020-08-18 15:53] LABS: ABG PARTIAL PRESSURE CO2 60.1 mmHg (35.0-45.0)
[2020-08-18] MEDS ORDERED: methylPREDNISolone 125MG 2ML VIAL IV ONE (16:30)
[2020-08-18] MEDS ORDERED: DEXTROSE 50% 50 ML SYRINGE IV PRN (16:45)
[2020-08-18] MEDS ORDERED: GLUCAGON INJ 1MG VIAL SC PRN (16:45)
[2020-08-18] MEDS ORDERED: GLUCOSE 4GM CHEW TABLET PO PRN (16:45)
[2020-08-18] MEDS ORDERED: LEVALBUTEROL 1.25 MG/0.5 ML CONCENTRATE NEB INH PRN (16:45)
[2020-08-18 16:57] LABS: ALT/SGPT 23 U/L (12-78)
[2020-08-18] MEDS ORDERED: WARF4TAB51 PO (17:08)
[2020-08-18] MEDS ORDERED: SPIR12.9 INH (17:08)
[2020-08-18] MEDS ORDERED: PRED10TA2 PO (17:08)
[2020-08-18] MEDS ORDERED: DILT1TAB3 PO (17:08)
[2020-08-18] MEDS ORDERED: CALC600T66 PO (17:08)
[2020-08-18] MEDS ORDERED: MIRALAX *UNIT DOSE* 17GM PACKET PO PRN (17:15)
[2020-08-18] MEDS ORDERED: SENOKOT S TAB PO PRN (17:15)
[2020-08-18] MEDS ORDERED: FLUTICASONE PROP 0.05% NASAL SPRAY 16 GM (FLONASE) NARES PRN (17:15)
[2020-08-18] MEDS ORDERED: POLYVINYL ALCOHOL OPHTH SOLN 15 ML(LIQUITEARS) OU PRN (17:15)
[2020-08-18] MEDS ORDERED: MOXIFLOXACIN HCL 400 MG in IV 1 EA IV SCH (18:00)
[2020-08-18 18:18] LABS: INR 1.05; PROTHROMBIN TIME 13.9 SECONDS (12.5-14.3)
[2020-08-18 18:19] LABS: PARTIAL THROMBOPLASTIN TIME 30.3 SECONDS (24.2-38.5)
[2020-08-18 18:30] LABS: MB/CK RELATIVE INDEX 7.14 (< OR =4); TROPONIN I 0.02 NG/ML (< 0.10)
[2020-08-18] MEDS: SYMBICORT 160/4.5MCG INHALER 6GM INH SCH (19:45)
[2020-08-18] MEDS: LEVALBUTEROL 1.25 MG/0.5 ML CONCENTRATE NEB INH SCH (19:45)
[2020-08-18 19:48] LABS: HEMOGLOBIN A1c 8.6 %
[2020-08-18 20:30] VITALS: BP 159/63
[2020-08-18] MEDS: HumaLOG INSULIN (NovoLOG) PER UNIT SC SCH ×2 (20:30→21:00)
[2020-08-18] MEDS: WARFARIN SOD 4MG TAB PO SCH (21:07)
[2020-08-18] MEDS: MONTELUKAST 10 MG TAB PO SCH (21:27)
[2020-08-18 23:21] LABS: CK-MB VALUE MASS 1.9 NG/ML (<3.6); MB/CK RELATIVE INDEX 5.76 (< OR =4); TROPONIN I 0.02 NG/ML (< 0.10)
[2020-08-19] MEDS: LEVALBUTEROL 1.25 MG/0.5 ML CONCENTRATE NEB INH SCH ×6 (00:03→20:00)
[2020-08-19] MEDS: methylPREDNISolone 125MG 2ML VIAL IV SCH ×5 (00:30→23:31)
[2020-08-19 06:00] VITALS: BP 120/62
[2020-08-19 06:11] LABS: HEMATOCRIT 34.6 % (36.0-47.0); HEMOGLOBIN 10.2 g/dl (12.0-15.5); MEAN CORPUSCULAR HEMOGLOBIN 28.8 pg (27.0-33.0); MEAN CORPUSCULAR HGB CONC 29.5 g/dl (32.0-36.5); MEAN CORPUSCULAR VOLUME 97.7 fl (80.0-96.0); PLATELET COUNT, AUTOMATED 185 10^3/uL (150-450); RED BLOOD COUNT 3.54 10^6/uL (4.00-5.40); WHITE BLOOD COUNT 4.6 10^3/uL (4.0-10.0)
[2020-08-19 06:34] LABS: BLOOD UREA NITROGEN 27 MG/DL (7-18); CALCIUM LEVEL 8.4 MG/DL (8.8-10.2); CARBON DIOXIDE LEVEL 37 MEQ/L (21-32); CHLORIDE LEVEL 101 MEQ/L (98-107); CREATININE FOR GFR 0.69 MG/DL (0.55-1.30); GLOMERULAR FILTRATION RATE > 60.0 (>39); GLUCOSE, FASTING 319 MG/DL (70-100); POTASSIUM SERUM 4.4 MEQ/L (3.5-5.1); SODIUM LEVEL 141 MEQ/L (136-145)
[2020-08-19] MEDS: TIOTROPIUM INHALER/CAPSULE (SPIRIVA) INH SCH (08:36)
[2020-08-19] MEDS: SYMBICORT 160/4.5MCG INHALER 6GM INH SCH ×2 (08:36→20:42)
[2020-08-19] MEDS: VENLAFAXINE **XR** 75MG CAPSULE PO SCH (08:40)
[2020-08-19] MEDS: HumaLOG INSULIN (NovoLOG) PER UNIT SC SCH ×4 (08:41→21:20)
[2020-08-19] MEDS ORDERED: FLUBLOK(EGG FREE)(QUAD)INFLUENZA VACC 0.5ML SYRINGE 18YRS & OLDER IM ONE (09:00)
[2020-08-19] MEDS: MOXIFLOXACIN 400 MG TAB PO SCH (11:15)
[2020-08-19] MEDS: ENOXAPARIN 60MG/0.6ML SYRINGE (J1650 PER 10MG) SC SCH ×2 (11:15→21:21)
[2020-08-19 14:00] VITALS: BP 129/65
[2020-08-19] MEDS: WARFARIN SOD 4MG TAB PO SCH (18:02)
[2020-08-19] MEDS: MONTELUKAST 10 MG TAB PO SCH (21:19)
[2020-08-19 22:00] VITALS: BP 124/67
[2020-08-20] MEDS: LEVALBUTEROL 1.25 MG/0.5 ML CONCENTRATE NEB INH SCH ×8 (00:12→23:09)
[2020-08-20 05:55] LABS: HEMATOCRIT 32.7 % (36.0-47.0); HEMOGLOBIN 9.6 g/dl (12.0-15.5); MEAN CORPUSCULAR HEMOGLOBIN 28.6 pg (27.0-33.0); MEAN CORPUSCULAR HGB CONC 29.4 g/dl (32.0-36.5); MEAN CORPUSCULAR VOLUME 97.3 fl (80.0-96.0); PLATELET COUNT, AUTOMATED 222 10^3/uL (150-450); RED BLOOD COUNT 3.36 10^6/uL (4.00-5.40); WHITE BLOOD COUNT 13.9 10^3/uL (4.0-10.0)
[2020-08-20 06:00] VITALS: BP 123/64
[2020-08-20 06:18] LABS: BLOOD UREA NITROGEN 29 MG/DL (7-18); CALCIUM LEVEL 8.3 MG/DL (8.8-10.2); CARBON DIOXIDE LEVEL 38 MEQ/L (21-32); CHLORIDE LEVEL 103 MEQ/L (98-107); CREATININE FOR GFR 0.78 MG/DL (0.55-1.30); GLOMERULAR FILTRATION RATE > 60.0 (>39); GLUCOSE, FASTING 269 MG/DL (70-100); POTASSIUM SERUM 4.3 MEQ/L (3.5-5.1); SODIUM LEVEL 143 MEQ/L (136-145)
[2020-08-20] MEDS: methylPREDNISolone 125MG 2ML VIAL IV SCH ×2 (06:23→18:17)
[2020-08-20] MEDS: MOXIFLOXACIN 400 MG TAB PO SCH (06:38)
[2020-08-20] MEDS: VENLAFAXINE **XR** 75MG CAPSULE PO SCH (07:53)
[2020-08-20] MEDS: HumaLOG INSULIN (NovoLOG) PER UNIT SC SCH ×4 (07:53→20:34)
[2020-08-20] MEDS: TIOTROPIUM INHALER/CAPSULE (SPIRIVA) INH SCH (08:00)
[2020-08-20] MEDS: SYMBICORT 160/4.5MCG INHALER 6GM INH SCH ×2 (08:01→20:26)
[2020-08-20] MEDS: ENOXAPARIN 60MG/0.6ML SYRINGE (J1650 PER 10MG) SC SCH ×2 (09:42→20:33)
[2020-08-20 10:36] LABS: INR 1.3; PROTHROMBIN TIME 16.4 SECONDS (12.5-14.3)
[2020-08-20 14:00] VITALS: BP 114/63
--- NOTE | 2020-08-20 14:42 | HPE ---
DATE OF ADMISSION: 08/18/2020 CHIEF COMPLAINT: Shortness of breath HISTORY OF PRESENT ILLNESS: This is a 80-year-old female who has had 6 prior admissions for chronic obstructive pulmonary disease (COPD) exacerbation usually follows with pulmonary associates and is on chronic 3.5 liters of oxygen, has been increasingly short of breath since her hospital discharge on 08/01/2020 without fever, chills, had persistent cough, but has changed to more whitish phlegm than yellow, has had increasing dyspnea on exertion going from bedroom to the bathroom without any chest pain, pressure or tightness, palpitations or lightheadedness. The patient was seen by Dr. Joyce in the office today and was found to be hypoxic at 86%. She is chronically on 3.5 liters. She also complained of increasing drowsiness at home and lethargy I have been sleeping a lot. The patient was then brought in by her and her son to the emergency room as recommended by Dr. Joyce. In the emergency room, she was found to be hypercapnic with Co2 level of 63, pH was compensated at 7.4. She remains in atrial fibrillation, but rate controlled at 74. Chest x-ray shows persistent infiltrate at the base similar to prior chest x-ray. Hospitalist was called to admit and for worsening hypercapnic failure most likely secondary to chronic obstructive pulmonary disease (COPD) exacerbation with residual infiltrate on chest x-ray. The patient has a known history of moderate to severe pulmonary hypertension with both moderate mitral stenosis and mitral regurgitation and moderate tricuspid regurgitation. The patient does not have a transformer tester, but was referred by Dr. Joyce to one in the future. In the emergency room, she was found to be 86% on saturation on arrival. She walked about 100 feet with 2 liters of oxygen and felt a little out of breath. PAST MEDICAL HISTORY: 1. Chronic obstructive pulmonary disease (COPD). 2. Chronic hypoxic and hypercapnic respiratory failure on 3.5 liters of home oxygen. 3. History of cerebrovascular accident (CVA) on Warfarin. 4. Atrial fibrillation, chronic. 5. Diabetes. 6. Depression. 7. Hypertension. 8. 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 9. Chronic grade 1 diastolic congestive heart failure (CHF). Preserved systolic function, ejection fraction (EF) of 60 go 65% on echocardiogram on 07/27/2020. Moderate to severe mitral regurgitation, moderate mitral stenosis, moderate pulmonary hypertension. PAST SURGICAL HISTORY: Hysterectomy, cataract surgery, kyphoplasty for L2-L4 compression fracture. SOCIAL HISTORY: Smoke a pack a day for 40 years, quit 6 years ago. Denies any alcohol or recreational drug use, retired. The patient has no history of asthma, has two dogs of chiwiEllieie mix. No recent travel. No COVID exposure. FAMILY HISTORY: Cerebrovascular accidents (CVAs) HOME MEDICATIONS: Warfarin 2 mg daily, albuterol 2 puffs q4 hours as needed, budesonide 1 inhaled b.i.d., gabapentin 600 mg q.i.d., metformin 500 mg t.i.d., prednisone taper, Warfarin 2 mg q p.m., calcium with vitamin D one tablet daily, Refresh eyedrops one drop OU daily, Actonel 150 mg monthly, Spiriva 2 puffs inhaled daily, Symbicort 2 puff inhaled b.i.d., diltiazem 240 mg q p.m., fluticasone 2 sprays as needed, montelukast 10 mg q.h.s., MiraLax 17 gm daily as needed, Senokot S one tab daily as needed, venlafaxine 150 mg daily REVIEW OF SYSTEMS: Per history of present illness. 12 point system otherwise negative. PHYSICAL EXAMINATION: Temperature 97.3, pulse 81, respiratory rate 18, blood pressure 136/73, 100% on 2 liters nasal cannula. General: The patient is awake, alert, oriented to person, place and time. Able to speak in full sentences without conversational dyspnea. No icterus. No jaundice. No use of respiratory accessory muscle. No jugular venous distention (JVD) or thyromegaly. Lungs: Diminished, fainting expiratory wheezing. Heart S1, S2. Systolic ejection murmur at the apex and left lower sternal border, irregularly irregular. Abdomen: Soft, nontender, non-distended. Positive bowel sounds. Extremities: Trace edema in bilateral lower extremities. LABORATORY DATA: White count 6.8, hemoglobin 10, hematocrit 36, platelet count 176. Sodium 139, potassium 4, chloride 98, bicarbonate 39, BUN 27, creatinine 0.5, glucose of 174. Troponin less than 0.02, albumin of 2.7. Chest x-ray: Improved infiltrate bilaterally at the bases. ASSESSMENT: This is a 80-year-old female with history of cerebrovascular accident (CVA), chronic hypoxic and hypercapnic respiratory failure on home oxygen 3.5 liters, end-stage chronic obstructive pulmonary disease (COPD), moderate pulmonary hypertension, moderate mitral regurgitation, moderate tricuspid regurgitation, moderate mitral stenosis, type 2 diabetes with neuropathy, secondary chronic prednisone use for exacerbations, depression, hypertension, osteoporosis due to chronic prednisone use for chronic obstructive pulmonary disease (COPD), recently discharged on 08/01/2020, represents with worsening dyspnea, found to have acute chronic obstructive pulmonary disease (COPD) exacerbation. ACUTE ISSUES: 1. Acute on chronic hypercapnic respiratory failure. 2. Acute on chronic respiratory failure 3. Acute chronic obstructive pulmonary disease (COPD) exacerbation 4. Lower lobe pneumonia, community acquired. 5. History of cerebrovascular accident (CVA). 6. Chronic atrial fibrillation. 7. Type 2 diabetes with steroid induced hyperglycemia. 8. Osteoporosis secondary to chronic prednisone use. 9. Hypertension. 10. Depression. 11. Moderate pulmonary hypertension. 12. Moderate mitral regurgitation 13. Moderate mitral stenosis. 14. Moderate tricuspid regurgitation. PLAN: Due to worsening hypercapnia, the patient is readmitted and given full supportive conservative management with IV Solu-Medrol 50 mg IV q 6 hours. She is resumed on her home dose of montelukast, Spiriva due to history of atrial fibrillation with rapid ventricular rate. We will avoid albuterol and put her on Xopenex q 4 hours and q 1 hour as needed. She is continued on anticoagulation with Warfarin, increase dose to 4 mg and check daily INRs and to be held for INR greater than 3. Rate control is achieved with her home dose of Cardizem 240 mg q p.m. For the residual pneumonia noted on chest x-ray, she has been restarted on Avalox. Will monitor the patient's Warfarin while on quinolones due to steroid induced hyperglycemia. Her metformin will be withheld and she will be placed on insulin. Will check A1c level in the morning. Activity as tolerated with fall precautions. ARU screen. Physical therapy (PT) and occupational therapy (OT) and activity as tolerated. Chronic obstructive pulmonary disease (COPD), Consistent carbohydrate diet. MTDD
--- NOTE | 2020-08-20 14:44 | IPN ---
DATE: 08/19/2020 SUBJECTIVE: Patient is seen and examined at the bedside. Chart has been reviewed. She reports less drowsiness and sleepiness during this admission. Still with dyspnea on exertion. No chest pain, pressure, tightness, lightheadedness, or dizziness. No fever or chills. With cough productive of white sputum. OBJECTIVE: PHYSICAL EXAMINATION: Vital signs: Temperature 97.8, pulse 65, respiratory rate 18, blood pressure 120/62, 97% on two liters nasal cannula. Generally: Patient is awake, alert, oriented to person, place and time, answering questions appropriately. She is noted to have mild respiratory distress with some pursed lips as well as leaning forward, about 6-7 word conversational dyspnea. No jugular venous distension (JVD) or thyromegaly. Moist mucous membranes. Lungs: Diminished, very faint wheezing, no crackles. Heart: S1, S2, sinus rhythm. Abdomen: Obese, soft, nontender, nondistended. Extremities: Trace edema bilateral lower extremities. HOSPITAL MEDICATIONS: - Avelox - Lovenox - Effexor - Spiriva - Solu-Medrol - Humalog insulin sliding scale before meals and nightly - Singulair - Xopenex - Symbicort - diltiazem - Flonase - MiraLax - Senokot-S - Aqua Tears - Coumadin - hypoglycemic protocol LABORATORY DATA: White count 4.6, hemoglobin 10, hematocrit 34, platelet count 185, sodium 141, potassium 4.4, chloride 101, bicarbonate 37, BUN 27, creatinine 0.69, glucose of 319. IMAGING STUDIES: Chest x-ray 08/18/2020, decreased interstitial patchy airspace opacity at lung bases compared to 07/29/2020, could reflect residual or recurrent pneumonia. ASSESSMENT AND PLAN: 80-year-old female recently treated for pneumonia, discharged 08/01/2020, readmitted due to hypoxia found at the doctors office, 86% on room air, found to be in acute on chronic hypercapnic respiratory failure with residual community-acquired pneumonia on repeat x-ray. IMPRESSION: 1. Acute chronic obstructive pulmonary disease (COPD) exacerbation. 2. Acute on chronic hypoxic respiratory failure. 3. Acute on chronic hypercapnic respiratory failure. 4. Community-acquired right lower lobe pneumonia. 5. Chronic atrial fibrillation. 6. Non-insulin diabetes with steroid induced hyperglycemia. 7. Depression. 8. Debility. 9. Macrocytic anemia. 10. History of CVA. 11. Moderate to severe mitral regurgitation. PLAN: Patient is still medically unstable and will keep on the same high doses of Solu-Medrol. Due to history of atrial fibrillation, will avoid albuterol and continue on Xopenex. Due to subtherapeutic INR, Lovenox has been added as a bridge, to increase warfarin to target value INR of 2-3. She is continued on all other home medications and inhalers. She is currently rate controlled with her home dose of Cardizem. She is continued on Avelox, Solu-Medrol, nebulizer treatments until dyspnea on exertion is improved. No other acute ischemic complaints. Troponin remains 0.02 times three. Acute rehabilitation unit (ARU) has been consulted. ZACH
[2020-08-20] MEDS: WARFARIN SOD 4MG TAB PO SCH (18:17)
[2020-08-20 20:00] VITALS: BP 121/68
[2020-08-20] MEDS: MONTELUKAST 10 MG TAB PO SCH (20:33)
[2020-08-21] MEDS: LEVALBUTEROL 1.25 MG/0.5 ML CONCENTRATE NEB INH SCH ×6 (03:39→23:08)
[2020-08-21] MEDS: MOXIFLOXACIN 400 MG TAB PO SCH (05:24)
[2020-08-21] MEDS: methylPREDNISolone 125MG 2ML VIAL IV SCH ×2 (05:24→17:48)
[2020-08-21 06:16] VITALS: BP 106/53
[2020-08-21 06:48] LABS: HEMATOCRIT 33.5 % (36.0-47.0); HEMOGLOBIN 10.1 g/dl (12.0-15.5); MEAN CORPUSCULAR HEMOGLOBIN 29.2 pg (27.0-33.0); MEAN CORPUSCULAR HGB CONC 30.1 g/dl (32.0-36.5); MEAN CORPUSCULAR VOLUME 96.8 fl (80.0-96.0); PLATELET COUNT, AUTOMATED 255 10^3/uL (150-450); RED BLOOD COUNT 3.46 10^6/uL (4.00-5.40); WHITE BLOOD COUNT 14.6 10^3/uL (4.0-10.0)
[2020-08-21 07:07] LABS: BLOOD UREA NITROGEN 38 MG/DL (7-18); CALCIUM LEVEL 8.3 MG/DL (8.8-10.2); CARBON DIOXIDE LEVEL 34 MEQ/L (21-32); CHLORIDE LEVEL 102 MEQ/L (98-107); CREATININE FOR GFR 0.82 MG/DL (0.55-1.30); GLOMERULAR FILTRATION RATE > 60.0 (>39); GLUCOSE, FASTING 288 MG/DL (70-100); POTASSIUM SERUM 3.7 MEQ/L (3.5-5.1); SODIUM LEVEL 141 MEQ/L (136-145)
[2020-08-21] MEDS: SYMBICORT 160/4.5MCG INHALER 6GM INH SCH ×2 (07:52→19:22)
[2020-08-21] MEDS: TIOTROPIUM INHALER/CAPSULE (SPIRIVA) INH SCH (07:52)
[2020-08-21] MEDS: VENLAFAXINE **XR** 75MG CAPSULE PO SCH (08:00)
[2020-08-21] MEDS: HumaLOG INSULIN (NovoLOG) PER UNIT SC SCH ×4 (08:00→21:28)
[2020-08-21] MEDS ORDERED: predniSONE 20 MG TAB PO SCH (09:00)
--- NOTE | 2020-08-21 09:20 | IPN ---
DATE: 08/20/2020 SUBJECTIVE: Patient seen and examined at the bedside. Chart has been reviewed. Patient reports some improvement in her dyspnea on exertion but still quite limited with her ambulation due to increased fatigue. She denies any worsening cough. Able to sleep at night. Less drowsiness during the day. No fever or chills overnight, nausea, or vomiting. Tolerating her diet. No chest pain, pressure, or tightness, lightheadedness, or dizziness with ambulation but still quite fatigued. OBJECTIVE: PHYSICAL EXAMINATION: VITAL SIGNS: Temperature 97.9, pulse 89, respiratory rate 17, blood pressure 123/64, 94% on 2 liters nasal cannula. GENERAL: Patient is awake, alert, oriented to person, place, and time, able to speak in full sentences. She has some pursed lips. Has about six to seven-word conversational dyspnea. No pallor, no icterus. Dry mucous membranes. No jugular venous distention (JVD) or thyromegaly. LUNGS: Diminished. Very faint wheezing. Air entry is equal bilaterally. HEART: S1, S2, sinus rhythm. ABDOMEN: Obese, soft, nontender, nondistended. EXTREMITIES: No pitting edema. HOSPITAL MEDICATIONS: Avelox, Solu-Medrol, Senokot, diltiazem, Lovenox, warfarin, fluticasone, hypoglycemic protocol, insulin sliding scale, Xopenex, montelukast, MiraLax, Spiriva, Effexor. LABORATORY DATA: INR 1.3. White count 13, hemoglobin 9.6, hematocrit 32, platelet count 222. Sodium 143, potassium 4.3, chloride 103, bicarbonate 30, BUN 29, creatinine 0.78, glucose 169. Troponin 0.02. Chest x-ray 08/18/2020: Decreased interstitial and patchy airspace opacities at the lung bases as compared. Could reflex residual over current pneumonia. ASSESSMENT AND PLAN: This is a 80-year-old female recently discharged on August 01 with atrial fibrillation with rapid ventricular response (RVR) and pneumonia. She has a history of chronic hypoxic and hypercapnic respiratory failure, chronic obstructive pulmonary disease (COPD), end-stage, oxygen dependent, chronic diastolic heart failure, preserved systolic function, hypertensive heart disease, [id number], depression, debility, macrocytic anemia. She has had history of moderate to severe mitral regurgitation and history of cerebrovascular accident (CVA). IMPRESSION: 1. Acute COPD exacerbation with acute on chronic hypercapnic respiratory failure, currently on Solu-Medrol 60 mg IV every 12 hours. Unfortunately complicated by steroid-induced hyperglycemia. Avelox 400 daily for now. Continue with Spiriva, montelukast, Xopenex, and Symbicort. 2. Chronic atrial fibrillation, on Cardizem, Lovenox, and warfarin for bridge therapy until INR is 2-3, then discontinue the patient's Lovenox. 3. Depression, on chronic Effexor. MTDD
--- NOTE | 2020-08-21 11:26 | IPNPDOC ---
Date Seen The patient was seen on 08/21/20. Progress Note SUBJECTIVE: Patient seen and examined at the bedside. Chart has been reviewed.She says she is less sleepy during the day. No confusion or disorientation. No fever or chills overnight, nausea, or vomiting. Tolerating her diet. Passed physical thearpy, but dyspneic on exertion despite iv solumedr ol. No chest pain, pressure, or tightness, lightheadedness, or dizziness with ambulation but still quite fatigued. OBJECTIVE: PHYSICAL EXAMINATION: VITAL SIGNS: see below GENERAL: Patient is awake, alert, oriented to person, place, and time, lying on her left side in bed. able to speak in full sentences. No pallor, no icterus. Dry mucous membranes. No jugular venous distention (JVD) or thyromegaly. LUNGS: Diminished. Very faint wheezing. Air entry is equal bilaterally. HEART: S1, S2, sinus rhythm. ABDOMEN: Obese, soft, nontender, nondistended. EXTREMITIES: No pitting edema. HOSPITAL MEDICATIONS: Avelox, Solu-Medrol, Senokot, diltiazem, Lovenox, warfarin, fluticasone, hypoglycemic protocol, insulin sliding scale, Xopenex, montelukast, MiraLax, Spiriva, Effexor. LABORATORY DATA: see below Chest x-ray 08/18/2020: Decreased interstitial and patchy airspace opacities at the lung bases as compared. Could reflex residual over current pneumonia. ASSESSMENT AND PLAN: This is a 80-year-old female recently discharged on August 01 with atrial fibrillation with rapid ventricular response (RVR) and pneumonia. She has a history of chronic hypoxic and hypercapnic respiratory failure, chronic obstructive pulmonary disease (COPD), end-stage, oxygen dependent, chronic diastolic heart failure, preserved systolic function, hypertensive heart disease, noninsulin-dependent- diabetes, depression, debility, macrocytic anemia.She has had history of moderate to severe mitral regurgitation and history of cerebrovascular accident (CVA). 1. Acute COPD exacerbation 2 acute on chronic hypercapnic respiratory failure 3. Acute on chronic hypoxic respiratory failure 4. Chronic Bronchiectasis 5. Chronic Pulmonary Fibrosis 6. Chronic atrial fibrillation 7. CO2 narcosis / Acute metabolic encephalopathy, resolved 8. CHF, compensated preserved systolic function 9. HTN heart disease 10. Steroid-induced hyperglycemia/ DM2 11. Depression 12. Macrocytic anemia 13. h/o CVA 14. Mod-severe MR 15. Pneumonia Plan:Continue with supportive care with IV solumedrol, avelox, albuterol, supplemental oxygen. OT eval and clearance. Resumed on warfarin to goal inr 2-3. resumed on home meds, and awaiting clinical improvement 2-3 days. dc plans Monday if stable on prednisone which we will start onS or Monday. keep o2 sat 88-92%, and monitor for fluid overload and hyperglycemia due to steroids. will continue on sliding scale,and adjust for better glycemic control if needed. VS, I&O, 24H, Fishbone Vital Signs/I&O Vital Signs Date Time Temp Pulse Resp B/P (MAP) Pulse Ox O2 Delivery O2 Flow Rate FiO2 08/21/20 08:08 2.0 08/21/20 06:16 97.2 77 16 106/53 (70) 99 Nasal Cannula I&O- Last 24 Hours up to 6 AM 08/21/20 06:00 Intake Total 800 ml Output Total 0 ml Balance 800 ml Laboratory Data 24H LABS Laboratory Tests 2 08/20/20 21:20: Bedside Glucose (Misc Panel) 269H 08/21/20 06:32: Nucleated Red Blood Cells % (auto) 0.0, Anion Gap 5L, Glomerular Filtration Rate > 60.0, Calcium Level 8.3L CBC/BMP Laboratory Tests 08/21/20 06:32 EVETTE CASAREZ MD Aug 21, 2020 11:15
[2020-08-21 12:13] LABS: INR 1.49; PROTHROMBIN TIME 18.3 SECONDS (12.5-14.3)
[2020-08-21] MEDS: ENOXAPARIN 60MG/0.6ML SYRINGE (J1650 PER 10MG) SC SCH ×2 (12:27→21:27)
[2020-08-21 14:00] VITALS: BP 74/53
[2020-08-21 14:05] VITALS: BP 148/78
[2020-08-21] MEDS: WARFARIN SOD 4MG TAB PO SCH (17:47)
[2020-08-21 20:00] VITALS: BP 103/59
[2020-08-21] MEDS: MONTELUKAST 10 MG TAB PO SCH (21:27)
[2020-08-22] MEDS: LEVALBUTEROL 1.25 MG/0.5 ML CONCENTRATE NEB INH SCH ×6 (03:00→23:07)
[2020-08-22] MEDS: MOXIFLOXACIN 400 MG TAB PO SCH (05:09)
[2020-08-22] MEDS: methylPREDNISolone 125MG 2ML VIAL IV SCH ×2 (05:09→18:17)
[2020-08-22 06:01] VITALS: BP 102/61
[2020-08-22 07:04] LABS: HEMATOCRIT 30.6 % (36.0-47.0); HEMOGLOBIN 9.2 g/dl (12.0-15.5); MEAN CORPUSCULAR HEMOGLOBIN 29.3 pg (27.0-33.0); MEAN CORPUSCULAR HGB CONC 30.1 g/dl (32.0-36.5); MEAN CORPUSCULAR VOLUME 97.5 fl (80.0-96.0); PLATELET COUNT, AUTOMATED 258 10^3/uL (150-450); RED BLOOD COUNT 3.14 10^6/uL (4.00-5.40)
[2020-08-22] MEDS: TIOTROPIUM INHALER/CAPSULE (SPIRIVA) INH SCH (07:07)
[2020-08-22] MEDS: SYMBICORT 160/4.5MCG INHALER 6GM INH SCH ×2 (07:07→19:37)
[2020-08-22 07:17] LABS: INR 2.05; PROTHROMBIN TIME 23.6 SECONDS (12.5-14.3)
[2020-08-22 07:27] LABS: BLOOD UREA NITROGEN 41 MG/DL (7-18); CARBON DIOXIDE LEVEL 36 MEQ/L (21-32); CHLORIDE LEVEL 103 MEQ/L (98-107); CREATININE FOR GFR 0.65 MG/DL (0.55-1.30); GLOMERULAR FILTRATION RATE > 60.0 (>39); GLUCOSE, FASTING 235 MG/DL (70-100); POTASSIUM SERUM 4.1 MEQ/L (3.5-5.1); SODIUM LEVEL 141 MEQ/L (136-145)
[2020-08-22] MEDS: HumaLOG INSULIN (NovoLOG) PER UNIT SC SCH ×4 (08:33→20:46)
[2020-08-22] MEDS: VENLAFAXINE **XR** 75MG CAPSULE PO SCH (08:34)
[2020-08-22] MEDS: ENOXAPARIN 60MG/0.6ML SYRINGE (J1650 PER 10MG) SC SCH (08:34)
--- NOTE | 2020-08-22 09:06 | IPNPDOC ---
Date Seen The patient was seen on 08/22/20. Progress Note SUBJECTIVE: Patient seen and examined at the bedside. Chart has been reviewed. Patient says that her dyspnea is slightly improved but still dyspneic on exertion. She has less drowsiness during the day. She otherwise denies fevers, chills, cough, chest pain, pressure, tightness, lightheadedness, dizziness, nausea, vomiting, epigastric pain, dysuria, urgency, frequency. Appetite has picked up no diarrhea OBJECTIVE: PHYSICAL EXAMINATION: VITAL SIGNS: see below GENERAL asleep, but easily arousable, lying on her left side. Patient speaks in full sentences. No conversational dyspnea No pallor, no icterus. HEENT:Dry mucous membranes. No jugular venous distention (JVD) or thyromegaly. Face is symmetric. Tongue is midline LUNGS: Clear to auscultation. No wheezing, rales or rhonchi. Air entry is equal, kyphotic HEART: S1, S2, sinus rhythm. Nondisplaced point of maximal impulse. No murmurs, rubs or gallops ABDOMEN: Obese, soft, nontender, nondistended. , Positive bowel sounds 4 quadrants. No rebound, guarding, no hepatosplenomegaly EXTREMITIES: No pitting edema. HOSPITAL MEDICATIONS: Avelox, Solu-Medrol, Senokot, diltiazem, Lovenox, warfarin, fluticasone, hypoglycemic protocol, insulin sliding scale, Xopenex, montelukast, MiraLax, Spiriva, Effexor. LABORATORY DATA: see below Chest x-ray 08/18/2020: Decreased interstitial and patchy airspace opacities at the lung bases as compared. Could reflex residual over current pneumonia. ASSESSMENT AND PLAN: This is a 80-year-old female recently discharged on August 01 with atrial fibrillation with rapid ventricular response (RVR) and pneumonia. She has a history of chronic hypoxic and hypercapnic respiratory failure, chronic obstructive pulmonary disease (COPD), end-stage, oxygen dependent, chronic diastolic heart failure, preserved systolic function, hypertensive heart disease, noninsulin-dependent- diabetes, depression, debility, macrocytic anemia.She has had history of moderate to severe mitral regurgitation and history of cerebrovascular accident (CVA). 1. Acute COPD exacerbation 2 acute on chronic hypercapnic respiratory failure 3. Acute on chronic hypoxic respiratory failure 4. Chronic Bronchiectasis 5. Chronic Pulmonary Fibrosis 6. Chronic atrial fibrillation 7. CO2 narcosis / Acute metabolic encephalopathy, resolved 8. CHF, compensated preserved systolic function 9. HTN heart disease 10. Steroid-induced hyperglycemia/ DM2 11. Depression 12. Macrocytic anemia 13. h/o CVA 14. Mod-severe MR 15. Pneumonia Plan: Lovenox has been discontinued as her INR is therapeutic at 2.05, but we will continue her warfarin at the current dose of 4 mg once patient is an upper limit of 2, then we will decrease the dose. Her home dose of 2 mg daily. Continue with supportive care with IV solumedrol, avelox, albuterol, supplemental oxygen. Patient is less drowsy and most likely bacterial baseline carbon dioxide levels. She has been resumed on her home meds , and awaiting clinical improvement 2-3 days. dc plans Monday if stable on prednisone which we will start on Monday. keep o2 sat 88-92%, and monitor for fluid overload and hyperglycemia due to steroids. will continue on sliding scale,and adjust for bet ter glycemic control if needed. VS, I&O, 24H, [facility] Vital Signs/I&O Vital Signs Date Time Temp Pulse Resp B/P (MAP) Pulse Ox O2 Delivery O2 Flow Rate FiO2 08/22/20 06:01 97.3 72 20 102/61 (75) 100 Nasal Cannula 2.0 I&O- Last 24 Hours up to 6 AM 08/22/20 06:00 Intake Total 1660 ml Output Total 0 ml Balance 1660 ml Laboratory Data 24H LABS Laboratory Tests 2 08/21/20 11:47: Prothrombin Time 18.3H, Prothromb Time International Ratio 1.49 08/21/20 20:29: Bedside Glucose (Misc Panel) 366H 08/22/20 06:31: Prothrombin Time 23.6H, Prothromb Time International Ratio 2.05, Nucleated Red Blood Cells % (auto) 0.2H, Anion Gap 2L, Glomerular Filtration Rate > 60.0, Calcium Level 8.0L CBC/BMP Laboratory Tests 08/22/20 06:31 EVETTE CASAREZ MD Aug 22, 2020 09:06
[2020-08-22 14:00] VITALS: BP 108/59
[2020-08-22] MEDS: WARFARIN SOD 4MG TAB PO SCH (18:16)
[2020-08-22 20:00] VITALS: BP 106/67
[2020-08-22] MEDS: MONTELUKAST 10 MG TAB PO SCH (20:21)
[2020-08-23] MEDS: LEVALBUTEROL 1.25 MG/0.5 ML CONCENTRATE NEB INH SCH ×6 (01:41→23:04)
[2020-08-23] MEDS: MOXIFLOXACIN 400 MG TAB PO SCH (06:21)
[2020-08-23] MEDS: methylPREDNISolone 125MG 2ML VIAL IV SCH (06:21)
[2020-08-23 06:37] VITALS: BP 147/78
[2020-08-23 06:59] LABS: HEMATOCRIT 33.7 % (36.0-47.0); HEMOGLOBIN 10.2 g/dl (12.0-15.5); MEAN CORPUSCULAR HEMOGLOBIN 29.1 pg (27.0-33.0); MEAN CORPUSCULAR HGB CONC 30.3 g/dl (32.0-36.5); MEAN CORPUSCULAR VOLUME 96.3 fl (80.0-96.0); PLATELET COUNT, AUTOMATED 312 10^3/uL (150-450); WHITE BLOOD COUNT 11.4 10^3/uL (4.0-10.0)
[2020-08-23 07:14] LABS: INR 2.17; PROTHROMBIN TIME 24.7 SECONDS (12.5-14.3)
[2020-08-23 07:16] LABS: BLOOD UREA NITROGEN 41 MG/DL (7-18); CALCIUM LEVEL 7.9 MG/DL (8.8-10.2); CARBON DIOXIDE LEVEL 32 MEQ/L (21-32); CHLORIDE LEVEL 103 MEQ/L (98-107); GLOMERULAR FILTRATION RATE > 60.0 (>39); GLUCOSE, FASTING 226 MG/DL (70-100); POTASSIUM SERUM 4.1 MEQ/L (3.5-5.1); SODIUM LEVEL 140 MEQ/L (136-145)
[2020-08-23] MEDS: TIOTROPIUM INHALER/CAPSULE (SPIRIVA) INH SCH (07:17)
[2020-08-23] MEDS: SYMBICORT 160/4.5MCG INHALER 6GM INH SCH ×2 (07:17→19:18)
[2020-08-23] MEDS: VENLAFAXINE **XR** 75MG CAPSULE PO SCH (07:36)
[2020-08-23] MEDS: HumaLOG INSULIN (NovoLOG) PER UNIT SC SCH ×4 (07:37→21:19)
--- NOTE | 2020-08-23 09:31 | IPNPDOC ---
Date Seen The patient was seen on 08/23/20. Progress Note SUBJECTIVE: Patient was seen, examined, and mesenteritis been reviewed. Patient does well on an elevated head of bed above 45 lying on her left side. She has no cough, fever, chills, says said that she is almost back to her baseline with dyspnea and exertion. "I feel better today." OBJECTIVE: PHYSICAL EXAMINATION: VITAL SIGNS: see below GENERAL supine at 45 head of bed elevation lying on her left side. Patient speaks in full sentences. No conversational dyspnea No pallor, no icterus. Chronic oxygen 2 L nasal cannula HEENT:Dry mucous membranes. No jugular venous distention (JVD) or thyromegaly. Face is symmetric. Tongue is midline LUNGS: Clear to auscultation. No wheezing, rales or rhonchi. Air entry is equal, kyphotic HEART: S1, S2, sinus rhythm. Nondisplaced point of maximal impulse. No murmurs, rubs or gallops. Regular rate ABDOMEN: Obese, soft, nontender, nondistended. , Positive bowel sounds 4 quadrants. No rebound, guarding, no hepatosplenomegaly EXTREMITIES: No pitting edema. HOSPITAL MEDICATIONS: Avelox, prednisone, Senokot, diltiazem, Lovenox, warfarin, fluticasone, hypoglycemic protocol, insulin sliding scale, Xopenex, montelukast, MiraLax, Spiriva, Effexor. LABORATORY DATA: see below Chest x-ray 08/18/2020: Decreased interstitial and patchy airspace opacities at the lung bases as compared. Could reflex residual over current pneumonia. ASSESSMENT AND PLAN: This is a 80-year-old female recently discharged on August 01 with atrial fibrillation with rapid ventricular response (RVR) and pneumonia. She has a history of chronic hypoxic and hypercapnic respiratory failure, chronic obstructive pulmonary disease (COPD), end-stage, oxygen dependent, chronic diastolic heart failure, preserved systolic function, hypertensive heart disease, noninsulin-dependent- diabetes, depression, debility, macrocytic anemia.She has had history of moderate to severe mitral regurgitation and history of cerebrovascular accident (CVA). 1. Acute COPD exacerbation , resolved 2 acute on chronic hypercapnic respiratory failure, resolved 3. Acute on chronic hypoxic respiratory failure, back to baseline 4. Chronic Bronchiectasis 5. Chronic Pulmonary Fibrosis 6. Chronic atrial fibrillation 7. CO2 narcosis / Acute metabolic encephalopathy, resolved 8. CHF, compensated preserved systolic function 9. HTN heart disease 10. Steroid-induced hyperglycemia/ DM2, improving on tapered dose of prednisone 11. Depression 12. Macrocytic anemia 13. h/o CVA 14. Mod-severe MR 15. Pneumonia, resolved Plan: Patient has clinically improved and IV Solu-Medrol. Therefore, will switch to oral prednisone today and monitor for 24 hours if she remains at baseline. Patient has passed some safety evaluation. Paula Lizarraga discharge home in the morning if no acute issues overnight. She has completed a full course of antibiotics and no oral antibiotics will be given as outpatient. Lovenox has been discontinued and she is therapeutic on her INR with current dose of warfarin. We will resume her home dose of warfarin as outpatient. Patient had steroid-induced hyperglycemia treated with insulin during hospital stay with tapering dose of prednisone. I anticipate that her sugars will improve. Discharge plans for Monday. VS, I&O, 24H, Fishbone Vital Signs/I&O Vital Signs Date Time Temp Pulse Resp B/P (MAP) Pulse Ox O2 Delivery O2 Flow Rate FiO2 08/23/20 06:37 98.2 76 20 147/78 (101) 96 Nasal Cannula 2.0 I&O- Last 24 Hours up to 6 AM 08/23/20 06:00 Intake Total 390 ml Output Total 0 ml Balance 390 ml Laboratory Data 24H LABS Laboratory Tests 2 08/22/20 12:02: Bedside Glucose (Misc Panel) 232H 08/22/20 16:52: Bedside Glucose (Misc Panel) 295H 08/22/20 19:49: Bedside Glucose (Misc Panel) 322H 08/23/20 06:28: Prothrombin Time 24.7H, Prothromb Time International Ratio 2.17 08/23/20 06:29: Nucleated Red Blood Cells % (auto) 0.7H, Anion Gap 5L, Glomerular Filtration Rate > 60.0, Calcium Level 7.9L CBC/BMP Laboratory Tests 08/23/20 06:29 EVETTE CASAREZ MD Aug 23, 2020 09:29
[2020-08-23 14:00] VITALS: BP 109/72
[2020-08-23] MEDS: WARFARIN SOD 4MG TAB PO SCH (17:36)
[2020-08-23 17:37] VITALS: BP 147/78
[2020-08-23] MEDS: MONTELUKAST 10 MG TAB PO SCH (21:19)
[2020-08-23 22:00] VITALS: BP 126/68
[2020-08-24] MEDS: LEVALBUTEROL 1.25 MG/0.5 ML CONCENTRATE NEB INH SCH ×3 (01:08→11:36)
[2020-08-24] MEDS: MOXIFLOXACIN 400 MG TAB PO SCH (05:06)
[2020-08-24 06:00] VITALS: BP 126/68
[2020-08-24 06:32] LABS: HEMATOCRIT 35.7 % (36.0-47.0); HEMOGLOBIN 10.8 g/dl (12.0-15.5); MEAN CORPUSCULAR HEMOGLOBIN 28.9 pg (27.0-33.0); MEAN CORPUSCULAR HGB CONC 30.3 g/dl (32.0-36.5); MEAN CORPUSCULAR VOLUME 95.5 fl (80.0-96.0); PLATELET COUNT, AUTOMATED 347 10^3/uL (150-450); RED BLOOD COUNT 3.74 10^6/uL (4.00-5.40); WHITE BLOOD COUNT 10.7 10^3/uL (4.0-10.0)
[2020-08-24 06:45] LABS: INR 2.53; PROTHROMBIN TIME 27.9 SECONDS (12.5-14.3)
[2020-08-24 06:59] LABS: BLOOD UREA NITROGEN 38 MG/DL (7-18); CALCIUM LEVEL 7.8 MG/DL (8.8-10.2); CARBON DIOXIDE LEVEL 35 MEQ/L (21-32); CHLORIDE LEVEL 103 MEQ/L (98-107); GLOMERULAR FILTRATION RATE > 60.0 (>39); GLUCOSE, FASTING 162 MG/DL (70-100); POTASSIUM SERUM 4.3 MEQ/L (3.5-5.1); SODIUM LEVEL 140 MEQ/L (136-145)
[2020-08-24] MEDS: TIOTROPIUM INHALER/CAPSULE (SPIRIVA) INH SCH (07:33)
[2020-08-24] MEDS: SYMBICORT 160/4.5MCG INHALER 6GM INH SCH (07:33)
[2020-08-24] MEDS: VENLAFAXINE **XR** 75MG CAPSULE PO SCH (08:03)
[2020-08-24] MEDS: HumaLOG INSULIN (NovoLOG) PER UNIT SC SCH ×2 (08:03→12:20)
[2020-08-24] MEDS ORDERED: PRED10TA2 PO (09:09)
--- NOTE | 2020-08-24 11:05 | DS.PDOC ---
Discharge Summary General Date of Admission Aug 18, 2020 at 16:33 Date of Discharge 08/24/20 Discharge Summary DISCHARGE DIAGNOSES: 1. Acute COPD exacerbation , resolved 2 acute on chronic hypercapnic respiratory failure, resolved 3. Acute on chronic hypoxic respiratory failure, back to baseline 4. Chronic Bronchiectasis 5. Chronic Pulmonary Fibrosis 6. Chronic atrial fibrillation 7. CO2 narcosis / Acute metabolic encephalopathy, resolved 8. CHF, compensated preserved systolic function 9. HTN heart disease 10. Steroid-induced hyperglycemia/ DM2, improving on tapered dose of prednisone 11. Depression 12. Macrocytic anemia 13. h/o CVA 14. Mod-severe MR 15. Pneumonia, resolved DISCHARGE MEDICATIONS: See below DISCHARGE INSTRUCTIONS: Patient is to follow with her english tutor within 1 week of discharge. Primary care physician within 5 days. Return to the emergency room for reevaluation. If patient has symptoms of hypercapnia with increased lethargy and drowsiness. HISTORY OF PRESENTING ILLNESS: This is a 80-year-old female who has had 6 prior admissions for chronic obstructive pulmonary disease (COPD) exacerbation usuallyfollows with pulmonary associates and is on chronic 3.5 liters of oxygen, has been increasingly short of breath since her hospital discharge on 08/01/2020 without fever, chills, had persistent cough, but has changed to more whitish phlegm than yellow, has had increasing dyspnea on exertion going from bedroom tothe bathroom without any chest pain, pressure or tightness, palpitations or lightheadedness. The patient was seen by Dr. Joyce in the office today and was found to be hypoxic at 86%. She is chronically on 3.5 liters. She also complained of increasing drowsiness at home and lethargy I have been sleeping alot. The patient was then brought in by her and her son to the emergency room as recommended by Dr. Joyce. In the emergency room, she was found to be hypercapnic with Co2 level of 63, pH was compensated at 7.4. She remains in atrial fibrillation, but rate controlled at 74. Chest x-ray shows persistent infiltrate at the base similar to prior chest x-ray. Hospitalist wascalled to admit and for worsening hypercapnic failure most likely secondary to chronic obstructive pulmonary disease (COPD) exacerbation with residual infiltrate on chest x-ray. The patient has a known history of moderate to severepulmonary hypertension with both moderate mitral stenosis and mitral regurgitation and moderate tricuspid regurgitation. The patient does not have a adjuster, but was referred by Dr. Joyce to one in the future. In the emergency room, she was found to be 86% on saturation on arrival. She walked about 100 feet with 2 liters of oxygen and felt a little out of breath. HOSPITAL COURSE: Due to worsening hypercapnia, the patient was readmitted and given full supportive conservative management with IV Solu-Medrol 50 mg IV q 6 hours. She was resumed on her home dose of montelukast, Spiriva. Due to history of atrial fibrillation with rapid ventricular rate, we avoided albuterol and put her onX openex q 4 hours and q 1 hour as needed. She was continued on anticoagulation with Warfarin, which was increased dose to 4 mg and checked daily INRs and to be held for INR greater than 3. Rate control was achieved with her home dose of Cardizem 240 mg q p.m. due to subtherapeutic INR. She was bridged with Lovenox until INR was greater than 2. For the residual pneumonia noted on chest x-ray, she has been restarted on Avelox due to persistent bronchiectasis and hypoxia despite completion of Levaquin as outpatient. Her metformin was withheld during the admission and she was placed on insulin sliding scale with adjustment according to the steroid-induced hyperglycemia that she developed . She worked with physical therapy with [facility] as tolerated and fall precautions. Patient was changed to oral prednisone without decompensation. She has home safety evaluation and was subsequently discharged home with outpatient follow-up with her english tutor. We had avoided narcotics and sedatives due to elevated carbon dioxide level. She became less and less sedated and returned back to baseline mentation. PHYSICAL EXAMINATION: VITAL SIGNS: see below GENERAL awake, alert, oriented to person, place and time pleasant and answering questions without difficulty lying on her left side. Patient speaks in full sentences. No conversational dyspnea No pallor, no icterus. Chronic oxygen 2 L nasal cannula HEENT:Dry mucous membranes. No jugular venous distention (JVD) or thyromegaly. Face is symmetric. Tongue is midline LUNGS: Clear to auscultation. No wheezing, rales or rhonchi. Air entry is equal, kyphotic HEART: S1, S2, sinus rhythm. Nondisplaced point of maximal impulse. No murmurs, rubs or gallops. Regular rate ABDOMEN: Obese, soft, nontender, nondistended. , Positive bowel sounds 4 quadrants. No rebound, guarding, no hepatosplenomegaly EXTREMITIES: No pitting edema. HOSPITAL MEDICATIONS: Avelox, prednisone, Senokot, diltiazem, Lovenox, warfarin, fluticasone, hypoglycemic protocol, insulin sliding scale, Xopenex, montelukast, MiraLax, Spiriva, Effexor. LABORATORY DATA: see below Chest x-ray 08/18/2020: Decreased interstitial and patchy airspace opacities at the lung bases as compared. Could reflect residual over current pneumonia. TIME SPENT ON DISCHARGE: 30 MINUTES Vital Signs/I&Os Vital Signs Date Time Temp Pulse Resp B/P (MAP) Pulse Ox O2 Delivery O2 Flow Rate FiO2 08/24/20 09:00 1.0 08/24/20 06:00 97.7 68 20 126/68 (87) 96 Nasal Cannula I&O- Last 24 Hours up to 6 AM 08/24/20 06:00 Intake Total 1320 ml Output Total 0 ml Balance 1320 ml Laboratory Data Labs 24H Laboratory Tests 2 08/23/20 12:09: Bedside Glucose (Misc Panel) 211H 08/23/20 17:11: Bedside Glucose (Misc Panel) 208H 08/23/20 20:41: Bedside Glucose (Misc Panel) 292H 08/24/20 06:00: Nucleated Red Blood Cells % (auto) 1.3H, Prothrombin Time 27.9H, Prothromb Time International Ratio 2.53, Anion Gap 2L, Glomerular Filtration Rate > 60.0, Calcium Level 7.8L CBC/BMP Laboratory Tests 08/24/20 06:00 FSBS Laboratory Tests Test 08/23/20 12:09 08/23/20 17:11 08/23/20 20:41 Range/Units Bedside Glucose (Misc Panel) 211 208 292 83-110 MG/DL Discharge Medications Scheduled Budesonide (Budesonide) 0.5 Mg/2 Ml Ampul.neb, 1 VIAL INH BID, (Reported) Budesonide/Formoterol (Symbicort 160-4.5 Mcg Inhaler) 60 Puff/Inhaler Aers, 2 PUFF INH BID, (Reported) Calcium Carbonate/Vitamin D3 (Calcium 600 + Vit D Tablet) 1 Each Tablet, 1 TAB PO DAILY, (Reported) Carboxymethylcellulose Sodium (Refresh Tears) 0.5 % Je, 1 DROP OU DAILY, (Reported) Diltiazem HCl (Diltiazem 24Hr ER) 240 Mg Tab.er.24h, 240 MG PO QPM, (Reported) Gabapentin (Gabapentin) 600 Mg Tablet, 600 MG PO QID, (Reported) Metformin HCl (Metformin HCl) 500 Mg Tab, 500 MG PO TID, (Reported) Montelukast Sodium (Singulair) 10 Mg Tab, 10 MG PO QHS, (Reported) Prednisone (Prednisone) 10 Mg Tablet, 10 MG PO DAILY, (Reported) Prednisone (Prednisone) 10 Mg Tablet, 10 MG PO TAPER Take 4 tabs daily x 3 days, then 3 tabs daily x 3 days, then 2 tabs daily x 3 days, then 1 tab daily x 3 days and stop Risedronate Sodium (Actonel) 150 Mg Tab, 150 MG PO QMONTH, (Reported) TAKES THE FIRST OF THE MONTH Tiotropium [place] (Spiriva Respimat) 4 Gm Mist.inhal, 2 PUFFS INH DAILY, (Reported) Venlafaxine HCl (Venlafaxine HCl ER) 150 Mg Cap.er.24h, 150 MG PO DAILY, (Reported) Warfarin Sodium (Warfarin Sodium) 2 Mg Tablet, 2 MG PO QPM, (Reported) Scheduled PRN Albuterol Sulf (Albuterol Sulfate) 2.5 Mg/3 Ml Nebu, 1 VIAL INH Q4H PRN for SHORTNESS OF BREATH, (Reported) Albuterol Sulfate (Ventolin Hfa) 108 Mcg/Act Aer, 2 PUFFS INH Q4H PRN for SHORTNESS OF BREATH, (Reported) Fluticasone Propionate (Flonase Allergy Relief) 50 Mcg/Act Spr, 2 SPRAYS NARES DAILY PRN for CONGESTION, (Reported) Polyethylene Glycol 3350 (Miralax) 1 Pow Pow, 17 GM PO DAILY PRN for CONSTIPATION, (Reported) Sennosides/Docusate Sodium (Senna-S Tablet) 1 Tab Tab, 1 TAB PO DAILY PRN for CONSTIPATION, (Reported) Allergies Coded Allergies: chocolate flavor (Verified Allergy, Severe, throat tightens, 08/18/20) Penicillins (Verified Adverse Reaction, Mild, shakes, 08/18/20) clarithromycin (Verified Adverse Reaction, Mild, shakes, 08/18/20) clavulanic acid (Verified Adverse Reaction, Mild, shakes, 08/18/20) ipratropium (Verified Adverse Reaction, Mild, shakes, 08/18/20) pseudoephedrine (Verified Adverse Reaction, Mild, flushed , 08/18/20) EVETTE CASAREZ MD Aug 24, 2020 10:57
== END 2020-08-24 14:45 | disposition home health service (06) | DRG 193 ==
LOC: M ED 13:25 → M ED INP 16:33 → ENRESERV 18:35 → M MS5PR 20:35
PROVIDERS: ADMIT General Practice; ATTEND General Practice
DX: J18.9 Pneumonia, unspecified organism (principal); J96.22 Acute and chronic respiratory failure with hypercapnia; J96.21 Acute and chronic respiratory failure with hypoxia; G93.41 Metabolic encephalopathy; J44.1 Chronic obstructive pulmonary disease with (acute) exacerbation; I48.20 Chronic atrial fibrillation, unspecified; I50.32 Chronic diastolic (congestive) heart failure; J44.0 Chronic obstructive pulmonary disease with (acute) lower respiratory infection; E11.65 Type 2 diabetes mellitus with hyperglycemia; Z66 Do not resuscitate; F32.9 Major depressive disorder, single episode, unspecified; I11.0 Hypertensive heart disease with heart failure; M81.0 Age-related osteoporosis without current pathological fracture; R53.81 Other malaise; D53.9 Nutritional anemia, unspecified; I27.20 Pulmonary hypertension, unspecified; I34.2 Nonrheumatic mitral (valve) stenosis; Z87.891 Personal history of nicotine dependence; Z79.01 Long term (current) use of anticoagulants; Z79.52 Long term (current) use of systemic steroids; Z88.0 Allergy status to penicillin; Z88.1 Allergy status to other antibiotic agents; Z88.8 Allergy status to other drugs, medicaments and biological substances; Z91.018 Allergy to other foods; Z99.81 Dependence on supplemental oxygen; Z79.84 Long term (current) use of oral hypoglycemic drugs

== ENCOUNTER 2020-09-26 20:10 | Emergency (ER) | payer MEDICARE, OTHER ==
[~2020-09-26] VITALS: Ht 160 cm; Wt 149.0 kg
[~2020-09-26 20:10] MED LIST changes: +CALC600T66 PO; +DILT1TAB3 PO; +SPIR12.9 INH; +WARF4TAB51 PO
[2020-09-26] MEDS ORDERED: COMBIVENT RESPIMAT 100-20MCG INHALER 4GM INH STA (20:16)
[2020-09-26 21:03] LABS: BASO # 0.1 10^3/uL (0.0-0.2); BASO % 0.5 % (0.0-1.0); EOS # 0.2 10^3/uL (0.0-0.5); EOS % 1.1 % (0.0-3.0); HEMATOCRIT 37.3 % (36.0-47.0); HEMOGLOBIN 11.1 g/dl (12.0-15.5); LYMPH # 1.9 10^3/uL (1.5-5.0); LYMPH % 14.2 % (24.0-44.0); MEAN CORPUSCULAR HEMOGLOBIN 28.9 pg (27.0-33.0); MEAN CORPUSCULAR HGB CONC 29.8 g/dl (32.0-36.5); MEAN CORPUSCULAR VOLUME 97.1 fl (80.0-96.0); MONO # 1.3 10^3/uL (0.0-0.8); MONO % 9.3 % (0.0-5.0); NEUTROPHILS % 74.1 % (36.0-66.0); PLATELET COUNT, AUTOMATED 393 10^3/uL (150-450); RED BLOOD COUNT 3.84 10^6/uL (4.00-5.40); WHITE BLOOD COUNT 13.5 10^3/uL (4.0-10.0)
--- NOTE | 2020-09-26 21:21 | REPVR ---
PROCEDURE INFORMATION: Exam: XR Chest, 1 View Exam date and time: 09/26/2020 8:39 PM Age: 80 years old Clinical indication: Other: Dyspnea/cough TECHNIQUE: Imaging protocol: XR of the chest Views: 1 view. COMPARISON: CR PORTABLE CHEST X-RAY 08/18/2020 2:08 PM FINDINGS: Lungs: Unremarkable. No consolidation. Pleural space: Small left pleural effusion with underlying atelectasis/infiltrates. Possible trace right pleural effusion. Heart/Mediastinum: Cardiomegaly. Vasculature: Atherosclerotic calcification of the aortic arch. Bones/joints: Degenerative changes of the spine. IMPRESSION: 1. Small left pleural effusion with underlying atelectasis/infiltrates. 2. Possible trace right pleural effusion. 3. Cardiomegaly. Electronically signed by: Zen Mccarthy On 09/26/2020 21:20:48 PM
--- NOTE | 2020-09-26 21:23 | REPVR ---
PROCEDURE INFORMATION: Exam: CT Head Without Contrast Exam date and time: 09/26/2020 8:29 PM Age: 80 years old Clinical indication: Injury or trauma; Fall; Blunt trauma (contusions or hematomas); Additional info: Head injury TECHNIQUE: Imaging protocol: Computed tomography of the head without contrast. Radiation optimization: All CT scans at this facility use at least one of these dose optimization techniques: automated exposure control; mA and/or kV adjustment per patient size (includes targeted exams where dose is matched to clinical indication); or iterative reconstruction. COMPARISON: CT Head without contrast 01/22/2018 12:47 PM FINDINGS: Brain: No acute intracranial hemorrhage is seen. There is no CT evidence for an acute large vessel territorial infarct. No mass effect, midline shift, or herniation is noted. There is a chronic lacunar infarct involving the anterior limb of the left internal capsule that has developed since the prior CT head on 01/22/2018. There are non-specific foci of low attenuation in the periventricular and subcortical white matter, which are likely the sequela of chronic small vessel ischemic injury. Cerebral ventricles: The ventricles are mildly to moderately dilated in proportion to the sulci, which is compatible with mild to moderate generalized cerebral volume loss that is similar in appearance compared to the prior CT on 01/22/2018. Bones/joints: The skull is intact. No suspicious osteolytic or osteoblastic lesion. Paranasal sinuses: The imaged portions of the sinuses are well-aerated. No air-fluid levels are noted in the sinuses. Mastoid air cells: Clear. Vasculature: There are atherosclerotic calcifications of the intracranial portion of the internal carotid arteries. Soft tissues: Unremarkable. No soft tissue fluid collection. IMPRESSION: 1. Intact skull. No acute intracranial hemorrhage or acute intracranial abnormality. 2. Chronic lacunar infarct involving the anterior limb of the left internal capsule that has developed since the prior CT head on 01/22/2018. 3. Periventricular and subcortical white matter changes, which are likely the sequela of chronic small vessel ischemic injury. Electronically signed by: Skip Caro On 09/26/2020 21:23:14 PM
--- NOTE | 2020-09-26 21:23 | REPVR ---
PROCEDURE INFORMATION: Exam: CT Cervical Spine Without Contrast Exam date and time: 09/26/2020 8:29 PM Age: 80 years old Clinical indication: Injury or trauma; Fall; Blunt trauma; Additional info: Head injury TECHNIQUE: Imaging protocol: Computed tomography images of the cervical spine without contrast. Radiation optimization: All CT scans at this facility use at least one of these dose optimization techniques: automated exposure control; mA and/or kV adjustment per patient size (includes targeted exams where dose is matched to clinical indication); or iterative reconstruction. COMPARISON: No relevant prior studies available. FINDINGS: Vertebrae: There is a reversal of the normal cervical lordosis. There is no fracture in the cervical spine. The vertebral body heights are preserved. No cervical rib is present. C1-C2: The atlantooccipital alignment and atlantoaxial alignment are within normal limits. There are degenerative changes involving the atlantoaxial joint. C2-C3: The disc height is preserved. There is a 2 mm grade 1 anterolisthesis of C2 on C3 with uncovering of the disc posteriorly and severe osteoarthritis of the facet joints. No spinal canal or neural foraminal stenosis is noted. C3-C4: There is severe loss of disc height, a 2 mm grade 1 anterolisthesis of C3 on C4 with uncovering of the disc posteriorly, posterior osseous ridging, bilateral uncovertebral hypertrophy, endplate spurs, severe osteoarthritis of the left facet joint, and mild osteoarthritis of the right facet joint. There is mild spinal canal stenosis, moderate left neural foraminal stenosis, and minimal right neural foraminal stenosis. C4-C5: There is moderate loss of disc height, a 3 mm grade 1 anterolisthesis of C4 on C5 with uncovering of the disc posteriorly, severe osteoarthritis of the left facet joint, and moderate osteoarthritis of the right facet joint. There is minimal left neural foraminal stenosis. No spinal canal or right neural foraminal stenosis is noted. C5-C6: There is severe loss of disc height, a broad-based posterior disc osteophyte complex, bilateral uncovertebral hypertrophy, endplate spurs, and mild osteoarthritis of the facet joints. There is moderate left neural foraminal stenosis and mild right neural foraminal stenosis. No spinal canal stenosis is noted. C6-C7: There is severe loss of disc height, a broad-based posterior disc osteophyte complex, endplate spurs, and mild osteoarthritis of the left facet joint. No spinal canal or neural foraminal stenosis is noted. C7-T1: The disc height is preserved. There is a 2 mm grade 1 anterolisthesis of C7 on T1 with uncovering of the disc posteriorly and moderate osteoarthritis of the facet joints. No spinal canal or neural foraminal stenosis is noted. T1-T2: There is mild loss of disc height, a 2 mm grade 1 anterolisthesis of T1 on T2, and moderate osteoarthritis of the facet joints. No spinal canal or neural foraminal stenosis is noted. T2-T3: The disc height is preserved. No disc herniation, spinal canal stenosis, or neural foraminal stenosis is noted. There is moderate osteoarthritis of the right facet joint and mild osteoarthritis of the left facet joint. Soft tissues: Unremarkable. No soft tissue fluid collection. Prevertebral Space: No prevertebral soft tissue swelling. Vasculature: There is an aberrant medial retropharyngeal course of the common carotid arteries. Lungs: There are centrilobular emphysematous changes in the lung apices. The lungs were not fully imaged. IMPRESSION: 1. Reversal of the normal cervical lordosis, but no fracture in the cervical spine. 2. C3-C4: Mild spinal canal stenosis, moderate left neural foraminal stenosis, and minimal right neural foraminal stenosis. 3. C4-C5: Minimal left neural foraminal stenosis. 4. C5-C6: Moderate left neural foraminal stenosis and mild right neural foraminal stenosis. Electronically signed by: Skip Caro On 09/26/2020 21:23:07 PM
[2020-09-26 21:28] LABS: INR 0.98; PROTHROMBIN TIME 13.2 SECONDS (12.5-14.3)
[2020-09-26 21:37] LABS: ALBUMIN 3.4 GM/DL (3.2-5.2); ALT/SGPT 20 U/L (12-78); BILIRUBIN,DIRECT 0.3 MG/DL (0.0-0.2); BILIRUBIN,TOTAL 0.8 MG/DL (0.2-1.0); BLOOD UREA NITROGEN 17 MG/DL (7-18); CARBON DIOXIDE LEVEL 32 MEQ/L (21-32); CHLORIDE LEVEL 101 MEQ/L (98-107); CPK CREATINE PHOSPHOKINASE 28 U/L (26-192); CREATININE FOR GFR 0.64 MG/DL (0.55-1.30); GLOMERULAR FILTRATION RATE > 60.0 (>39); GLUCOSE, FASTING 148 MG/DL (70-100); MB/CK RELATIVE INDEX 3.57 (< OR =4); NT-PRO BNP 870 PG/ML (<450); SODIUM LEVEL 139 MEQ/L (136-145); TOTAL PROTEIN 6.1 GM/DL (6.4-8.2); TROPONIN I < 0.02 NG/ML (< 0.10)
[2020-09-27 00:30] VITALS: BP 126/75
--- NOTE | 2020-09-27 05:43 | ECGEPIP ---
[facility] - ED Test Date: 2020-09-26 Pat Name: FARSHAD RODRIGUEZ Department: Room: - Gender: Female Design Director: : [id number] Requested By: ARIANA LINDSAY Order Number: [id number] Reading MD: Hunter Dinero Measurements Intervals [place] Rate: 97 P: 27 NE: 132 QRS: 55 QRSD: 77 T: 35 QT: 335 QTc: 426 Interpretive Statements SINUS RHYTHM WITH MARKED SINUS ARRHYTHMIA NONSPECIFIC T-WAVE ABNORMALITY SIMILAR TO 08/18/20 Electronically Signed on 09-27-2020 5:42:56 EST by Hunter Dinero
--- NOTE | 2020-09-28 11:36 | ED PDOC ---
Post-Departure Follow-Up dr grant faxed foal report of cxr and ct c spine for fu Zoe Brown MD Sep 28, 2020 11:36
== END 2020-09-27 00:43 | disposition home or self-care (01) ==
LOC: M ED 20:10
DX: J44.9 Chronic obstructive pulmonary disease, unspecified (principal); J90 Pleural effusion, not elsewhere classified; I51.7 Cardiomegaly; R29.6 Repeated falls; I48.91 Unspecified atrial fibrillation; I50.9 Heart failure, unspecified; E78.5 Hyperlipidemia, unspecified; Z99.81 Dependence on supplemental oxygen; Z79.899 Other long term (current) drug therapy; Z79.01 Long term (current) use of anticoagulants; Z79.52 Long term (current) use of systemic steroids; Z79.51 Long term (current) use of inhaled steroids; Z79.84 Long term (current) use of oral hypoglycemic drugs; Z88.0 Allergy status to penicillin; Z88.1 Allergy status to other antibiotic agents; Z88.8 Allergy status to other drugs, medicaments and biological substances; Z91.018 Allergy to other foods

== ENCOUNTER → 2021-01-07 | Outpatient (CLI) | payer MEDICARE, OTHER ==
[~2021-01-07] MED LIST changes: -LISI-542 PO; +LISI-898 PO
--- NOTE | 2021-01-07 17:34 | REP ---
INDICATION: UNILATERAL OSTEOARTHRITIS. COMPARISON: KUB 11/24/2018.. TECHNIQUE: Two views FINDINGS: There is marked narrowing of the hip joint space with [id number] appearance and complete loss of articular cartilage sclerosis acetabular roof and subchondral femoral head with rim osteophytes on the acetabulum and femoral head. This represents severe chondromalacia. No evidence of fracture or AVN. The intertrochanteric region and upper femoral shaft were unremarkable. The pubic rami, acetabulum and iliac wing are without fracture. There are some degenerative changes at the right SI joint. IMPRESSION: 1. Advanced osteoarthritis with [id number] appearance representing severe chondromalacia with subchondral sclerosis of the acetabular roof and femoral head but without evidence of fracture. Rim osteophytes femoral head and acetabulum 2. Degenerative changes right SI joint. No fracture, avulsion or other acute bony finding. <Electronically signed by Jeffrey Pierre > 01/07/21 [id number]
== END ==
LOC: M WUC 11:56
PROVIDERS: ATTEND Internal Medicine
DX: M16.11 Unilateral primary osteoarthritis, right hip (principal)

== ENCOUNTER 2021-05-31 08:54 | Inpatient (IN) | payer MEDICARE, OTHER ==
[~2021-05-31] VITALS: Ht 157.5 cm; Wt 62.5 kg
[~2021-05-31 08:54] MED LIST changes: +GABA-283 PO; -GABA-845 PO
[2021-05-31] MEDS ORDERED: predniSONE 10 MG TAB PO SCH (09:00)
[2021-05-31 09:28] LABS: VENOUS BASE EXCESS 6.5 (-2.0-2.0); VENOUS HCO3 34.1 MEQ/L (23.0-27.0); VENOUS O2 SATURATION 72.6 % (60.0-80.0); VENOUS PARTIAL PRESSURE CO2 64.5 mmHg (38.0-50.0); VENOUS PARTIAL PRESSURE O2 40.2 mmHg (30.0-50.0); VENOUS PH 7.341 UNITS (7.330-7.430); VENOUS STANDARD HCO3 29.8 MEQ/L; VENOUS TOTAL CO2 36.1 MEQ/L (24.0-28.0)
[2021-05-31 09:30] LABS: BASO # 0.1 10^3/uL (0.0-0.2); BASO % 0.6 % (0.0-1.0); EOS # 0.3 10^3/uL (0.0-0.5); EOS % 1.7 % (0.0-3.0); HEMATOCRIT 39.8 % (36.0-47.0); HEMOGLOBIN 11.5 g/dl (12.0-15.5); LYMPH % 12.6 % (24.0-44.0); MEAN CORPUSCULAR HEMOGLOBIN 26.9 pg (27.0-33.0); MEAN CORPUSCULAR HGB CONC 28.9 g/dl (32.0-36.5); MEAN CORPUSCULAR VOLUME 93.2 fl (80.0-96.0); MONO # 1.2 10^3/uL (0.0-0.8); MONO % 7.9 % (2.0-8.0); NEUTROPHILS % 76.8 % (36.0-66.0); PLATELET COUNT, AUTOMATED 368 10^3/uL (150-450); RED BLOOD COUNT 4.27 10^6/uL (4.00-5.40); WHITE BLOOD COUNT 15.7 10^3/uL (4.0-10.0)
[2021-05-31] MEDS ORDERED: COMBIVENT RESPIMAT 100-20MCG INHALER 4GM INH ONE (09:35)
--- NOTE | 2021-05-31 09:48 | REP ---
INDICATION: DYSPNEA/COUGH COMPARISON: 09/26/2020 TECHNIQUE: Portable AP view of the chest FINDINGS: Mediastinum and cardiac silhouette are stable with cardiomegaly again suggested. The lung adamson demonstrate diffuse chronic interstitial changes and scattered scarring similar to prior examination. Subtle superimposed atelectasis cannot be excluded. No discrete focal consolidation or effusion. No pneumothorax. Skeletal structures stable. IMPRESSION: Chronic stable appearing changes. No definite acute effusion or consolidation. <Electronically signed by Ramírez Pickard > 05/31/21 [id number]
[2021-05-31] MEDS ORDERED: ATOR40TA75 PO (09:56)
[2021-05-31] MEDS ORDERED: ELIQ5TAB PO (09:56)
[2021-05-31] MEDS ORDERED: ASPI1CAP8 (09:56)
[2021-05-31 10:01] LABS: ALBUMIN 3.3 GM/DL (3.2-5.2); ALT/SGPT 19 U/L (12-78); BILIRUBIN,DIRECT 0.1 MG/DL (0.0-0.2); BILIRUBIN,TOTAL 0.4 MG/DL (0.2-1.0); BLOOD UREA NITROGEN 32 MG/DL (7-18); CALCIUM LEVEL 9.1 MG/DL (8.8-10.2); CARBON DIOXIDE LEVEL 32 MEQ/L (21-32); CHLORIDE LEVEL 106 MEQ/L (98-107); CPK CREATINE PHOSPHOKINASE 40 U/L (26-192); CREATININE FOR GFR 0.84 MG/DL (0.55-1.30); GLOMERULAR FILTRATION RATE > 60.0 (>39); GLUCOSE, FASTING 127 MG/DL (70-100); NT-PRO BNP 1363 PG/ML (<450); POTASSIUM SERUM 4.4 MEQ/L (3.5-5.1); SODIUM LEVEL 144 MEQ/L (136-145); TOTAL PROTEIN 6.2 GM/DL (6.4-8.2); TROPONIN I 0.13 NG/ML (< 0.10)
[2021-05-31 10:19] LABS: INR 1.05; PROTHROMBIN TIME 13.9 SECONDS (12.5-14.3)
[2021-05-31 10:20] LABS: PARTIAL THROMBOPLASTIN TIME 30.9 SECONDS (24.2-38.5)
[2021-05-31 12:36] LABS: CK-MB VALUE MASS 3.1 NG/ML (<3.6); MB/CK RELATIVE INDEX 8.38 (< OR =4); TROPONIN I 0.11 NG/ML (< 0.10)
[2021-05-31] MEDS ORDERED: ASPI1CAP3 PO (13:35)
[2021-05-31] MEDS ORDERED: ACETAMINOPHEN TAB 650MG DOSE (2X325MG) PO PRN (14:55)
[2021-05-31] MEDS ORDERED: FLUTICASONE PROP 0.05% NASAL SPRAY 16 GM (FLONASE) NARES PRN (14:55)
[2021-05-31] MEDS ORDERED: MAALOX 30 ML SUSP *UDC PO PRN (14:55)
[2021-05-31] MEDS ORDERED: MIRALAX *UNIT DOSE* 17GM PACKET PO PRN (14:55)
[2021-05-31] MEDS ORDERED: ALBUTEROL 90 MCG/ACT 8GM HFA INHALER INH PRN (14:55)
[2021-05-31] MEDS ORDERED: ALBUTEROL SULFATE 2.5 MG/0.5 ML INH NEB SOLN INH PRN (14:55)
[2021-05-31] MEDS ORDERED: MOM 30ML SUSPENSION UDC PO PRN (14:55)
[2021-05-31] MEDS ORDERED: SENOKOT S TAB PO PRN (14:55)
--- NOTE | 2021-05-31 15:34 | HPEPDOC ---
[facility] Medical History & Physical Date of Admission May 31, 2021 Date of Service: May 31, 2021 History and Physical CHIEF COMPLAINT: shortness of breat HISTORY OF PRESENT ILLNESS: 80-year-old female with a history of chronic hypoxic respiratory failure, severe COPD on 3.5 L of home oxygen, history of CVA, chronic atrial fibrillation, 2 diabetes mellitus, grade 1 diastolic congestive heart failure, presented to the ER after she developed shortness of breath this morning at approximately 6 AM. After checking her pulse oximetry. She noted she was down to the low 80s. She was supplemented because her treatment, but this was unsuccessful and raising her oxygenation. She decided to call 911. She was given a dose of Solu-Medrol via EMS. On arrival, patient was placed on 1 L nasal cannula. She is now saturating at 95%. She is found to be afebrile. The respirator 26. She is hypertensive at 181/81, which is now improved. And her pulse was 98. His x-ray showed chronic changes consistent with COPD. No consolidation or effusion. White count elevated 15.7. Patient denies cough. She was noted to have troponin elevation of 0.13, as well as BNP at 1363. Her troponin trended down to 0.11. EKG showed T-wave inversion in lead [address] changes. Patient denies chest pain at any point, palpitations, fevers, chills, nausea, vomiting or diarrhea. Patient will be admitted to hospitalist service for the management of shortness of breath secondary to acute COPD and congestive heart failure exacerbations. PAST MEDICAL HISTORY: 1. Chronic obstructive pulmonary disease (COPD). 2. Chronic hypoxic and hypercapnic respiratory failure on 1.5 liters of home oxygen. 3. History of cerebrovascular accident (CVA) on eliquis 4. Atrial fibrillation, chronic, AC with eliquis 5. Diabetes TYPE 2 6. Depression. 7. Hypertension. 8. 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 9. Chronic grade 1 diastolic congestive heart failure (CHF). Preserved systolicfunction, ejection fraction (EF) of 60 go 65% on echocardiogram on 07/27/2020. Moderate to severe mitral regurgitation, moderate mitral stenosis, moderate pulmonary hypertension. PAST SURGICAL HISTORY: Hysterectomy, cataract surgery, kyphoplasty for L2-L4 compression fracture. SOCIAL HISTORY: Smoke a pack a day for 40 years, quit 6 years ago. Denies any alcohol or recreational drug use, retired. The patient has no history of asthma, has two dogs of chiwiBioWizardie mix. No recent travel. No COVID exposure. FAMILY HISTORY: reviewed with patient, no pertinent history provided ALLERGIES: Please see below. REVIEW OF SYSTEMS: 10 point ROS conducted, relevant findings are noted in HPI. HOME MEDICATIONS: Please see below. PHYSICAL EXAMINATION: VITAL SIGNS: please see below General: NAD, comfortable HEENT: PERRLA, EOMI, sclerae clear Neck: supple, normal ROM, no JVD Respiratory: Reduced air entry bilaterally. Mild crackles heard along bases. Mild expiratory wheeze, no rales, no rhonchi. CVS: RRR, normal S1, S2, no murmurs Abdo: soft, no masses, no hepatosplenomegaly, BS+, no rebound tenderness Extremities: no edema, pulses 2+ MSK: no joint deformities, normal ROM Neuro: no focal neuro deficits, moving all 4 extremities, CN2-12 intact. Strength 5/5 in all 4 extremities. No nystagmus. Psych: calm, cooperative, AAO x 3 LABORATORY DATA: See below. IMAGING: Chest x-ray on 05/31/21 IMPRESSION: Chronic stable appearing changes. No definite acute effusion or consolidation. MICROBIOLOGY: Please see below. ASSESSMENT: 80-year-old female with a history of chronic hypoxic respiratory failure, severe COPD on 3.5 L of home oxygen, history of CVA, chronic atrial fibrillation, 2 diabetes mellitus, grade 1 diastolic congestive heart failure, presented to the ER after she developed shortness of breath this morning at approximately 6 AM. Given her wheezing as well as elevated BNP and crackles at lung bases. Patient admitted for management of acute COPD exacerbation as well as acute on chronic congestive heart failure exacerbation. . PLAN: Acute on chornic hypoxic and hypercapnic respiratory failure 2/2 COPD and distolic CHF exacerbation - c/w IV solumedrol at 60 mg IV q8h - c/w duonebs - c/w symbicort - given elevated WBC will start patient on respiratory fluoroquinolone given right rate of COPD exacerbation - levaquin 750 mg po daily - check CRP, procal - check MRSA screen - will check 2D echo - start on gentle diuresis with lasix 20 mg IV q8h Hx of CVA - presently on aggrostat and eliquis - no obvious residual deficits - BP control Hx of chronic atrial fibrillation - AC with eliquis - EKG showing NSR DM2 - hold home metformin - ISS and FSBS AC and HS - hypoglycemia precautions Elevated troponins - likely in setting of acute diastolic CHF exacerbation - trop: 0.13, 011. - EKG showig T wave inversion lead 5, no ST elevation - d/w Dr. Melgoza. Suspect 2/2 increased demand, cardiac wall stretch - to c/w aggrenox and eliquis CODE STATUS: patient does not want chest compressions, but would like intubation if needed. DNR/Trial intubation. Vital Signs Vital Signs Date Time Temp Pulse Resp B/P (MAP) Pulse Ox O2 Delivery O2 Flow Rate FiO2 05/31/21 13:15 22 126/74 (91) 05/31/21 13:09 93 96 Nasal Cannula 1.0 05/31/21 08:59 98.4 Laboratory Data Labs 24H Laboratory Tests 2 05/31/21 09:17: Immature Granulocyte % (Auto) 0.4, Neutrophils (%) (Auto) 76.8H, Lymphocytes (%) (Auto) 12.6L, Monocytes (%) (Auto) 7.9, Eosinophils (%) (Auto) 1.7, Basophils ( %) (Auto) 0.6, Neutrophils # (Auto) 12.0H, Lymphocytes # (Auto) 2.0, Monocytes # (Auto) 1.2H, Eosinophils # (Auto) 0.3, Basophils # (Auto) 0.1, Nucleated Red Blood Cells % (auto) 0.0, Blood Gas Bicarbonate Standard 29.8, Venous Blood pH 7.341, Venous Blood Partial Pressure CO2 64.5H, Venous Blood Partial Pressure O2 40.2, Venous Blood Total Carbon Dioxide 36.1H, Venous Blood HCO3 34.1H, Venous Blood Oxygen Saturation 72.6, Venous Blood Base Excess 6.5H, Anion Gap 6L, Glomerular Filtration Rate > 60.0, Calcium Level 9.1, Total Bilirubin 0.4, Direct Bilirubin 0.1, Aspartate Amino Transf (AST/SGOT) 8, Alanine Aminotransferase (ALT/SGPT) 19, Alkaline Phosphatase 55, Total Creatine Kinase 40, Creatine Kinase MB 2.0, Creatine Kinase MB Relative Index 5.00H, Troponin I 0.13H, VN-Bqn-D-Type Natriuretic Peptide 1363H, Total Protein 6.2L, Albumin 3.3, Albumin/Globulin Ratio 1.1L, Thyroid Stimulating Hormone (TSH) 2.010 05/31/21 09:48: Prothrombin Time 13.9, Prothromb Time International Ratio 1.05, Activated Partial Thromboplast Time 30.9 05/31/21 11:51: Total Creatine Kinase 37, Creatine Kinase MB 3.1, Creatine Kinase MB Relative Index 8.38H, Troponin I 0.11H CBC/BMP Laboratory Tests 05/31/21 09:17 Microbiology Microbiology 05/31/21 Respiratory Virus Panel (PCR) ([facility]) - Final, Complete Home Medications Scheduled Apixaban (Eliquis) 5 Mg Tablet, 5 MG PO BID Aspirin/Dipyridamole (Aspirin-Dipyridam ER 25-200 mg) 1 Each Cpmp.12hr, 1 CAP PO DAILY AFTERNOON Atorvastatin Calcium (Atorvastatin Calcium) 40 Mg Tablet, 40 MG PO DAILY Budesonide (Budesonide) 0.5 Mg/2 Ml Ampul.neb, 1 VIAL INH BID Budesonide/Formoterol (Symbicort 160-4.5 Mcg Inhaler) 60 Puff/Inhaler Aers, 2 PUFF INH BID Gabapentin (Gabapentin) 600 Mg Tablet, 600 MG PO TID Metformin HCl (Metformin HCl) 500 Mg Tab, 500 MG PO BID Montelukast Sodium (Singulair) 10 Mg Tab, 10 MG PO QHS Prednisone (Prednisone) 10 Mg Tablet, 10 MG PO DAILY Risedronate Sodium (Actonel) 150 Mg Tab, 150 MG PO QMONTH TAKES THE FIRST OF THE MONTH Tiotropium [place] (Spiriva Respimat) 4 Gm Mist.inhal, 2 PUFFS INH DAILY Venlafaxine HCl (Venlafaxine HCl ER) 150 Mg Cap.er.24h, 150 MG PO DAILY Scheduled PRN Albuterol Sulf (Albuterol Sulfate) 2.5 Mg/3 Ml Nebu, 1 VIAL INH Q4H PRN for SHORTNESS OF BREATH Albuterol Sulfate (Ventolin Hfa) 108 Mcg/Act Aer, 2 PUFFS INH Q4H PRN for SHORTNESS OF BREATH Carboxymethylcellulose Sodium (Refresh Tears) 0.5 % Je, 1 DROP OU DAILY PRN for DRY EYES Fluticasone Propionate (Flonase Allergy Relief) 50 Mcg/Act Spr, 2 SPRAYS NARES D AILY PRN for CONGESTION Polyethylene Glycol 3350 (Miralax) 1 Pow Pow, 17 GM PO DAILY PRN for CONSTIPATION Sennosides/Docusate Sodium (Senna-S Tablet) 1 Tab Tab, 1 TAB PO DAILY PRN for CONSTIPATION Allergies Coded Allergies: chocolate flavor (Verified Allergy, Severe, throat tightens, 05/31/21) Penicillins (Verified Adverse Reaction, Mild, shakes, 05/31/21) clarithromycin (Verified Adverse Reaction, Mild, shakes, 05/31/21) clavulanic acid (Verified Adverse Reaction, Mild, shakes, 05/31/21) ipratropium (Verified Adverse Reaction, Mild, shakes, 05/31/21) pseudoephedrine (Verified Adverse Reaction, Mild, flushed , 05/31/21) ADAL OLSON MD May 31, 2021 15:34
[2021-05-31] MEDS ORDERED: GLUCAGON INJ 1MG VIAL SC PRN (15:35)
[2021-05-31] MEDS ORDERED: GLUCOSE 4GM CHEW TABLET PO PRN (15:35)
[2021-05-31] MEDS ORDERED: DEXTROSE 50% 50 ML SYRINGE IV PRN (15:35)
[2021-05-31] MEDS: VENLAFAXINE **XR** 75MG CAPSULE PO SCH (16:59)
[2021-05-31] MEDS: GABAPENTIN 300 MG CAP PO SCH ×2 (16:59→20:42)
[2021-05-31] MEDS: methylPREDNISolone 40MG 1ML VIAL IV SCH (17:00)
[2021-05-31] MEDS: HumaLOG INSULIN (NovoLOG) PER UNIT SC SCH (18:14)
[2021-05-31] MEDS: TIOTROPIUM INHALER/CAPSULE (SPIRIVA) INH SCH (18:19)
[2021-05-31] MEDS: IPRATROPIUM 0.5MG/ALBUTEROL 2.5MG INH SOL UD 3ML (DUONEB) NEB SCH ×3 (18:19→22:52)
[2021-05-31] MEDS: FUROSEMIDE 20MG/2ML VIAL (J1940) IV SCH (20:40)
[2021-05-31] MEDS: DOCUSATE SODIUM 100MG CAPSULE PO SCH (20:41)
[2021-05-31] MEDS: APIXABAN 5 MG TAB (ELIQUIS) PO SCH (20:41)
[2021-05-31] MEDS: guaiFENesin ER 600 MG TAB PO SCH (20:42)
[2021-05-31] MEDS ORDERED: metFORMIN (GLUCOPHAGE) 500MG TAB PO SCH (21:00)
[2021-05-31] MEDS ORDERED: MONTELUKAST 10 MG TAB PO SCH (21:00)
[2021-05-31] MEDS ORDERED: HumaLOG INSULIN (NovoLOG) PER UNIT SC SCH (21:00)
--- NOTE | 2021-05-31 21:29 | ECGEPIP ---
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
--- NOTE | 2021-05-31 21:33 | ECGEPIP ---
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
[2021-05-31] MEDS: SYMBICORT 160/4.5MCG INHALER 6GM INH SCH (22:52)
[2021-05-31 23:15] VITALS: BP 132/72
[2021-06-01] MEDS: methylPREDNISolone 40MG 1ML VIAL IV SCH ×2 (00:20→08:55)
[2021-06-01] MEDS: IPRATROPIUM 0.5MG/ALBUTEROL 2.5MG INH SOL UD 3ML (DUONEB) NEB SCH (02:53)
[2021-06-01 04:00] VITALS: BP 138/85
[2021-06-01] MEDS: FUROSEMIDE 20MG/2ML VIAL (J1940) IV SCH (04:09)
[2021-06-01] MEDS ORDERED: IPRATROPIUM 0.5MG/ALBUTEROL 2.5MG INH SOL UD 3ML (DUONEB) NEB PRN (07:05)
[2021-06-01 08:00] VITALS: BP 133/67
[2021-06-01] MEDS: ALBUTEROL SULFATE 2.5 MG/0.5 ML INH NEB SOLN NEB SCH ×2 (08:00→11:54)
[2021-06-01 08:06] LABS: BASO % 0.1 % (0.0-1.0); HEMATOCRIT 37.3 % (36.0-47.0); HEMOGLOBIN 10.9 g/dl (12.0-15.5); LYMPH # 0.6 10^3/uL (1.5-5.0); LYMPH % 6.3 % (24.0-44.0); MEAN CORPUSCULAR HEMOGLOBIN 26.5 pg (27.0-33.0); MEAN CORPUSCULAR HGB CONC 29.2 g/dl (32.0-36.5); MEAN CORPUSCULAR VOLUME 90.5 fl (80.0-96.0); MONO # 0.3 10^3/uL (0.0-0.8); MONO % 2.7 % (2.0-8.0); NEUTROPHILS # 9.1 10^3/uL (1.5-8.5); NEUTROPHILS % 90.2 % (36.0-66.0); PLATELET COUNT, AUTOMATED 365 10^3/uL (150-450); RED BLOOD COUNT 4.12 10^6/uL (4.00-5.40); WHITE BLOOD COUNT 10.1 10^3/uL (4.0-10.0)
[2021-06-01 08:31] LABS: BLOOD UREA NITROGEN 35 MG/DL (7-18); CALCIUM LEVEL 8.7 MG/DL (8.8-10.2); CARBON DIOXIDE LEVEL 32 MEQ/L (21-32); CHLORIDE LEVEL 101 MEQ/L (98-107); CREATININE FOR GFR 0.91 MG/DL (0.55-1.30); GLOMERULAR FILTRATION RATE > 60.0 (>39); GLUCOSE, FASTING 236 MG/DL (70-100); POTASSIUM SERUM 4.2 MEQ/L (3.5-5.1); SODIUM LEVEL 140 MEQ/L (136-145)
[2021-06-01] MEDS: HumaLOG INSULIN (NovoLOG) PER UNIT SC SCH ×2 (08:55→12:59)
[2021-06-01] MEDS: VENLAFAXINE **XR** 75MG CAPSULE PO SCH (08:55)
[2021-06-01] MEDS: APIXABAN 5 MG TAB (ELIQUIS) PO SCH (08:56)
[2021-06-01] MEDS: GABAPENTIN 300 MG CAP PO SCH (08:56)
[2021-06-01] MEDS: DOCUSATE SODIUM 100MG CAPSULE PO SCH (08:56)
[2021-06-01] MEDS: guaiFENesin ER 600 MG TAB PO SCH (08:56)
[2021-06-01] MEDS ORDERED: ASPIRIN 81MG ENTERIC TABLET PO SCH (09:00)
[2021-06-01] MEDS ORDERED: FUROSEMIDE 40MG/4ML VIAL (J1940) IV SCH (09:00)
[2021-06-01] MEDS ORDERED: ATORVASTATIN 20 MG TAB PO SCH (09:00)
[2021-06-01] MEDS ORDERED: AGGRENOX PO SCH (09:00)
[2021-06-01] MEDS: TIOTROPIUM INHALER/CAPSULE (SPIRIVA) INH SCH (09:10)
[2021-06-01] MEDS: SYMBICORT 160/4.5MCG INHALER 6GM INH SCH (09:11)
[2021-06-01] MEDS ORDERED: PRED10TA2 PO (11:52)
[2021-06-01] MEDS ORDERED: LASI40TA9 PO (11:52)
[2021-06-01 12:00] VITALS: BP 131/71
--- NOTE | 2021-06-02 07:57 | ECHO ---
ECHOCARDIOGRAM DATE OF PROCEDURE: 06/01/2021 Age: 80 Gender: Female Height: 158 cm Weight: 65 kg REFERRING PHYSICIAN: Dr. Trenton Escobar INDICATION: Congestive heart failure MEASUREMENTS: IVS 1.3 cm LV 4.2 cm LVPW 1.1 cm LA 4.3 cm Aorta 2.8 cm IVC 0.8 cm Mitral E wave velocity 165 A wave 203 E prime septal 3.4 E prime lateral 7.2 FINDINGS: This study is of fair technical quality with difficult visualization, underlying sinus rhythm with wide QRS complex. Left ventricle is of normal size. There is overall hyperdynamic LV systolic function with estimated LVEF of around 70%. Mild left ventricular hypertrophy is noted. Right ventricle is also normal size and systolic function. Left atrium is severely enlarged. Right atrium appears normal. Aortic valve is likely tricuspid, it is heavily calcified and there is some restriction of cusp mobility. There are very prominent degenerative abnormalities of mitral valve with heavy mitral annular calcifications, thickening and calcifications of mitral leaflets and severe restriction of leaflet mobility. Tricuspid valve appears normal. Pulmonic valve was not well seen. No pericardial effusion is noted. Inferior vena cava is normal size. Aortic root appears normal. Aortic arch and abdominal aorta were not well seen. Doppler interrogation of aortic valve reveals no insufficiency and trivial stenosis with mean gradient 12 mmHg. There is mild mitral insufficiency and probably moderately severe stenosis. Peak gradient is 25 and mean gradient 10 mmHg. There is mild tricuspid insufficiency. Calculated pulmonary artery pressure is in 40's, corresponding to moderate pulmonary hypertension. Pulmonic valve is functionally competent. Evaluation of diastolic function is inconclusive due to underlying mitral stenosis. CONCLUSIONS: 1. Study is of acceptable technical quality, underlying sinus rhythm with wide QRS complex. 2. Normal LV size with mild LVH and hyperdynamic LV systolic function, estimated LVEF 70% 3. Normal RV size and systolic function. 4. Severe left atrial enlargement. 5. Calcified aortic valve with trivial stenosis (mean gradient 12 mmHg). 6. Heavily calcified and restricted mitral valve with resulting at least moderate mitral stenosis (mean gradient 10, peak gradient 25 mmHg) and mild mitral insufficiency. 7. Likely normal central venous pressure and moderate pulmonary hypertension. COMMENT: Patient has significant mitral stenosis. She would benefit from slow heart rate, but if not responding to maximum medical therapy, consideration should be given for cardiac catheterization for further assessment of mitral valve.
== END 2021-06-01 14:52 | disposition home or self-care (01) | DRG 291 ==
LOC: M ED 08:54 → EDBD 08:54 → M ED INP 14:53 → ENRESERVTM 22:43 → ENRESERVDT 22:43 → M PCU 23:13
PROVIDERS: ADMIT Family Medicine; ATTEND Internal Medicine Nephrology
DX: I11.0 Hypertensive heart disease with heart failure (principal); J96.21 Acute and chronic respiratory failure with hypoxia; J96.22 Acute and chronic respiratory failure with hypercapnia; I48.20 Chronic atrial fibrillation, unspecified; J44.1 Chronic obstructive pulmonary disease with (acute) exacerbation; I50.33 Acute on chronic diastolic (congestive) heart failure; E11.9 Type 2 diabetes mellitus without complications; M81.0 Age-related osteoporosis without current pathological fracture; Z86.73 Personal history of transient ischemic attack (TIA), and cerebral infarction without residual deficits; Z79.01 Long term (current) use of anticoagulants; Z87.891 Personal history of nicotine dependence

== ENCOUNTER 2021-07-28 19:38 | Observation (INO) | payer MEDICARE, OTHER ==
[~2021-07-28] VITALS: Ht 160 cm; Wt 63.6 kg
[~2021-07-28 19:38] MED LIST changes: +ASPI1CAP3 PO; +ASPI1CAP8; +ELIQ5TAB PO; +FLON1SPR; -FLON1SPR NARES; +LASI40TA9 PO
[2021-07-28] MEDS ORDERED: OXYMETAZOLINE 0.05% NASAL SPRAY (AFRIN) ONE (19:50)
[2021-07-28] MEDS ORDERED: SILVER NITRATE APPLICATOR TOP ONE ×2 (20:05→20:30)
[2021-07-28 21:17] LABS: BASO # 0.1 10^3/uL (0.0-0.2); BASO % 0.5 % (0.0-1.0); EOS # 0.2 10^3/uL (0.0-0.5); EOS % 1.2 % (0.0-3.0); HEMATOCRIT 40.2 % (36.0-47.0); HEMOGLOBIN 11.7 g/dl (12.0-15.5); LYMPH # 1.5 10^3/uL (1.5-5.0); LYMPH % 11.4 % (24.0-44.0); MEAN CORPUSCULAR HEMOGLOBIN 27.3 pg (27.0-33.0); MEAN CORPUSCULAR HGB CONC 29.1 g/dl (32.0-36.5); MEAN CORPUSCULAR VOLUME 93.9 fl (80.0-96.0); MONO # 1.3 10^3/uL (0.0-0.8); MONO % 9.8 % (2.0-8.0); NEUTROPHILS # 9.9 10^3/uL (1.5-8.5); NEUTROPHILS % 76.4 % (36.0-66.0); PLATELET COUNT, AUTOMATED 380 10^3/uL (150-450); RED BLOOD COUNT 4.28 10^6/uL (4.00-5.40); WHITE BLOOD COUNT 12.9 10^3/uL (4.0-10.0)
[2021-07-28 21:28] LABS: INR 0.95
[2021-07-28 21:50] LABS: PARTIAL THROMBOPLASTIN TIME 29.6 SECONDS (25.9-37.0)
[2021-07-28 22:01] LABS: ALBUMIN 3.3 GM/DL (3.2-5.2); BILIRUBIN,DIRECT 0.2 MG/DL (0.0-0.2); BILIRUBIN,TOTAL 0.6 MG/DL (0.2-1.0); CALCIUM LEVEL 8.8 MG/DL (8.8-10.2); CK-MB VALUE MASS 2.4 NG/ML (<3.6); CREATININE FOR GFR 0.98 MG/DL (0.55-1.30); GLOMERULAR FILTRATION RATE 58.3 (>39); MB/CK RELATIVE INDEX 7.74 (< OR =4); POTASSIUM SERUM 4.5 MEQ/L (3.5-5.1); THYROID STIMULATING HORMONE 2.15 uIU/ML (0.358-3.740); TROPONIN I 0.02 NG/ML (< 0.10)
[2021-07-28 22:11] VITALS: BP 154/82
[2021-07-29 00:20] LABS: RSV AMPLIFICATION NEGATIVE (NEGATIVE)
[2021-07-29] MEDS ORDERED: ACETAMINOPHEN TAB 650MG DOSE (2X325MG) PO PRN (01:00)
[2021-07-29] MEDS ORDERED: MAALOX 30 ML SUSP *UDC PO PRN (01:00)
[2021-07-29] MEDS ORDERED: MOM 30ML SUSPENSION UDC PO PRN (01:00)
[2021-07-29] MEDS ORDERED: NS 1,000 ML IV SCH (01:00)
--- NOTE | 2021-07-29 01:38 | HPEPDOC ---
[facility] Medical History & Physical Date of Admission Jul 29, 2021 Date of Service: Jul 29, 2021 Attending Physician: MEE ALLEN MD History and Physical TIME OF SERVICE: 215am CHIEF COMPLAINT: nose bleed HISTORY OF PRESENT ILLNESS: Yesterday evening at about 6PM, a 81 yr old F, suddenly developed a nose bleed. Because her nose was still bleeding at 7PM her son insisted that she come to the hospital for evaluation. She has had a similar episode once in the past. When EMS arrived at her house her O2 sats were 84% with 1.5L of O2 therefore they placed her on a non-rebreather mask. Her epistaxis resolved after she was treated with Afrin x2 while in the ER. She was also noted to have accelerated HTN and tachycardia which resolved with IV Cardizem. At the time of my evaluation she denied having any dizziness, chest pain, and changes in her chronic shortness of breath, or wheezing more than usual. She added that over the last few days her appetite has been poor and she feels more sleepy than usual. 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 She doesnt drink alcohol or use recreational drug use, retired. ALLERGIES: Please see below. HOME MEDICATIONS: Please see below. PHYSICAL EXAMINATION: Vital Signs Date Time Temp Pulse Resp B/P (MAP) Pulse Ox O2 Delivery O2 Flow Rate FiO2 07/28/21 19:53 125 32 100 Non-Rebreather 07/28/21 21:16 97.6 15.0 07/28/21 22:00 50 GENERAL APPEARANCE: well-nourished and developed/ NAD HEENT: EOMI / NC in place /nares covered with dried blood CARDIOVASCULAR: RRR/NMRG LUNGS: she is not coughing / air entry is equal bilaterally / breath sounds are diminished bilaterally she is not wheezing MUSCULOSKELETAL: NCAT / OSVALDO x 4 extremities INTEGUMENT: she is not pale or diaphoretic NEUROLOGICAL: CN 2-12 grossly intact / speech not dysarthric PSYCHIATRIC: A&O x/ able to understand and follow simple commands LABORATORY DATA: IMAGING: Chest xrayreport pending MICROBIOLOGY: Respiratory panel neg ASSESSMENT: Mr. Moran is a 79-year-old with a hx of COPD, chronic hypoxemic respiratory failure O2, IDDM w neuropathy, Paroxysmal Afib, CVA, depression, HTN, steroid induced osteoporosis, & HFpEF presented to the ER for evaluation of epistaxis. PLAN: 1 Epistaxis Plan: admit to medical floor / ask respiratory therapist to administer humidified supplemental O2 / hold Apixaban tonight / f/u repeat Hg 2 Asymptomatic HTN Urgency Resolved Plan; resume 3 SIRS She has chronic leukocytosis likely due to steroid use The tachycardia and tachypnea were present while her nose was bleeding and while she was being treated with Afrin The lactic acid was wnl Plan; monitor vitals / f/u on final chest xray report 4 Lethargy Plan: order VBG to check PCO2 5 COPD / Chronic O2 Dependent Respiratory Failure The patient denies acute worsening of her dyspnea Plan: supplemental O2 / continuous pulse oximetry / c/w budesonide, monteluklast prednisone, albuterol & Spiriva 6 Paroxysmal A Fib / hx of CVA Plan: resume AC in the morning 7 Chronic Diastolic CHF / Chronic HTN HTN Crisis resolved Plan: she is not on anti-HTNs / start HTCZ which will also reduce urinary calci um excretion 8 NIDDM Plan: f/u accuchecks & A1C / hypoglycemia protocol / sliding scale insulin / c/w gabapentin / hold metformin 9 Depression Plan: venlafaxine 10 Osteoporosis Plan: c/w risedronate as scheduled DVT px w SCDs pending repeat Hg Dispo: home after less than 2 midnights stay Home Medications Scheduled Apixaban (Eliquis) 5 Mg Tablet, 5 MG PO BID Budesonide (Budesonide) 0.5 Mg/2 Ml Ampul.neb, 0.5 MG INH BID Gabapentin (Gabapentin) 600 Mg Tablet, 600 MG PO TID Metformin HCl (Metformin HCl) 500 Mg Tab, 500 MG PO BID Montelukast Sodium (Singulair) 10 Mg Tab, 10 MG PO QHS Prednisone (Prednisone) 10 Mg Tablet, 10 MG PO DAILY Risedronate Sodium (Actonel) 150 Mg Tab, 150 MG PO QMONTH TAKES THE FIRST OF THE MONTH Tiotropium [place] (Spiriva Respimat) 4 Gm Mist.inhal, 2 PUFFS INH DAILY Venlafaxine HCl (Venlafaxine HCl ER) 150 Mg Cap.er.24h, 150 MG PO DAILY TAKES AT LUNCH Scheduled PRN Albuterol Sulf (Albuterol Sulfate) 2.5 Mg/3 Ml Vial.neb, 2.5 MG INH Q4H PRN for SHORTNESS OF BREATH Albuterol Sulfate (Ventolin Hfa) 108 Mcg/Act Aer, 2 PUFFS INH Q4H PRN for SHORTNESS OF BREATH Carboxymethylcellulose Sodium (Refresh Tears) 0.5 % Je, 1 DROP OU DAILY PRN for DRY EYES Fluticasone Propionate (Flonase Allergy Relief) 50 Mcg/Act Spr, 2 SPRAYS NA DAILY PRN for NASAL CONGESTION Allergies Coded Allergies: chocolate flavor (Verified Allergy, Severe, throat tightens, 05/31/21) Penicillins (Verified Adverse Reaction, Mild, shakes, 05/31/21) clarithromycin (Verified Adverse Reaction, Mild, shakes, 05/31/21) clavulanic acid (Verified Adverse Reaction, Mild, shakes, 05/31/21) ipratropium (Verified Adverse Reaction, Mild, shakes, 05/31/21) pseudoephedrine (Verified Adverse Reaction, Mild, flushed , 05/31/21) A-FIB/CHADSVASC A-FIB History Current/History of A-Fib/PAF?: No Current PO Anticoag Therapy: MEE Olea MD Jul 29, 2021 01:38
[2021-07-29 02:02] LABS: HEMATOCRIT 36.5 % (36.0-47.0); HEMOGLOBIN 10.8 g/dl (12.0-15.5); MEAN CORPUSCULAR HEMOGLOBIN 27.3 pg (27.0-33.0); MEAN CORPUSCULAR HGB CONC 29.6 g/dl (32.0-36.5); MEAN CORPUSCULAR VOLUME 92.2 fl (80.0-96.0); PLATELET COUNT, AUTOMATED 358 10^3/uL (150-450); RED BLOOD COUNT 3.96 10^6/uL (4.00-5.40); WHITE BLOOD COUNT 19.7 10^3/uL (4.0-10.0)
[2021-07-29] MEDS ORDERED: ALBU83IN INH (02:08)
[2021-07-29] MEDS ORDERED: BUDE0.5S6 INH (02:08)
[2021-07-29] MEDS ORDERED: HOME MED LIST COMPLETE! XX SCH (02:10)
[2021-07-29] MEDS ORDERED: FLUTICASONE PROP 0.05% NASAL SPRAY 16 GM (FLONASE) PRN (02:25)
[2021-07-29] MEDS ORDERED: MONTELUKAST 10 MG TAB PO SCH (02:25)
[2021-07-29] MEDS: BUDESONIDE 0.5 MG/2 ML INHALATION SUSPENSION INH SCH ×3 (02:25→19:49)
[2021-07-29] MEDS ORDERED: POLYVINYL ALCOHOL OPHTH SOLN 15 ML(LIQUITEARS) OU PRN (02:25)
[2021-07-29 02:27] LABS: BLOOD UREA NITROGEN 33 MG/DL (7-18); CALCIUM LEVEL 8.7 MG/DL (8.8-10.2); CARBON DIOXIDE LEVEL 37 MEQ/L (21-32); CHLORIDE LEVEL 102 MEQ/L (98-107); CREATININE FOR GFR 0.88 MG/DL (0.55-1.30); GLOMERULAR FILTRATION RATE > 60.0 (>39); GLUCOSE, FASTING 227 MG/DL (70-100); POTASSIUM SERUM 4.7 MEQ/L (3.5-5.1); SODIUM LEVEL 139 MEQ/L (136-145)
[2021-07-29] MEDS: ALBUTEROL SULFATE 2.5 MG/0.5 ML INH NEB SOLN INH PRN ×2 (02:35→07:09)
[2021-07-29 03:50] VITALS: O2SAT 95
[2021-07-29 04:00] VITALS: BP 130/77
[2021-07-29] MEDS ORDERED: GLUCAGON INJ 1MG VIAL SC PRN (04:15)
[2021-07-29] MEDS ORDERED: GLUCOSE 4GM CHEW TABLET PO PRN (04:15)
[2021-07-29] MEDS ORDERED: DEXTROSE 50% 50 ML SYRINGE IV PRN (04:15)
[2021-07-29] MEDS: GABAPENTIN 300 MG CAP PO SCH ×3 (04:19→15:14)
[2021-07-29 05:34] LABS: VENOUS BASE EXCESS 5.6 (-2.0-2.0); VENOUS HCO3 31.5 MEQ/L (23.0-27.0); VENOUS O2 SATURATION 96.3 % (60.0-80.0); VENOUS PARTIAL PRESSURE CO2 51.7 mmHg (38.0-50.0); VENOUS PARTIAL PRESSURE O2 85.7 mmHg (30.0-50.0); VENOUS PH 7.402 UNITS (7.330-7.430); VENOUS STANDARD HCO3 29.5 MEQ/L
[2021-07-29 05:56] LABS: HEMOGLOBIN A1c 8.3 %
[2021-07-29 06:00] VITALS: BP 133/81
--- NOTE | 2021-07-29 06:37 | ECGEPIP ---
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
[2021-07-29] MEDS ORDERED: TIOTROPIUM INHALER/CAPSULE (SPIRIVA) INH SCH (08:00)
--- NOTE | 2021-07-29 08:21 | REP ---
INDICATION: DYSPNEA/COUGH. COMPARISON: Comparison chest x-ray May 31, 2021. TECHNIQUE: Portable upright AP chest radiograph. FINDINGS: The patient is rotated somewhat to the left for the current radiograph. Emphysematous changes are again noted in the upper lobes bilaterally. Mitral annular calcification is seen. No definite infiltrate or effusion. There is scoliotic curvature in the thoracic spine unchanged. Heart size is borderline unchanged. IMPRESSION: Hyperinflation and emphysematous changes consistent with COPD. No acute infiltrate. <Electronically signed by Devante Colvin > 07/29/21 [id number]
[2021-07-29] MEDS ORDERED: predniSONE 10 MG TAB PO SCH (09:00)
[2021-07-29] MEDS ORDERED: FLUBLOK(EGG FREE)(QUAD)INFLUENZA VACC 0.5ML SYRINGE 18YRS & OLDER IM ONE (09:00)
[2021-07-29] MEDS ORDERED: HYDROCHLOROthiazide 6.25MG PER 1/4TAB PO SCH (09:00)
[2021-07-29] MEDS: HumaLOG INSULIN (NovoLOG) PER UNIT SC SCH ×2 (09:49→12:00)
[2021-07-29] MEDS ORDERED: VENLAFAXINE **XR** 75MG CAPSULE PO SCH (12:00)
[2021-07-29 14:00] VITALS: BP 120/61
--- NOTE | 2021-07-29 17:14 | IPNPDOC ---
Subjective Date Seen The patient was seen on 07/29/21. Subjective Chief Complaint/HPI Patient does not have any complaints this morning. Reports that bleeding had stopped while she was down in the ED and no further bleeding overnight. Denies any problem with the breathing or any cough or phlegm. Says he is she is just sleepy as she has not slept all night when she was down in the ED. Wants to go home. Objective Physical Examination General Exam: Positive: Alert, Cooperative, No Acute Distress Eye Exam: Positive: PERRLA, Conjunctiva & lids normal, EOMI; Negative: Sclera icteric ENT Exam: Positive: Mucous membr. moist/pink, Pharynx Normal, Nares Patent, Other ENT (Some dried blood around nares) Neck Exam: Positive: Supple; Negative: JVD, thyromegaly Chest Exam: Positive: Clear to auscultation, Normal air movement Heart Exam: Positive: Rate Normal, Irregular Rhythm, Normal S1, Normal S2; Negative: Murmurs, Rubs Abdomen Exam: Positive: Normal bowel sounds, Soft; Negative: Tenderness Extremity Exam: Negative: Clubbing, Cyanosis, Edema Assessment /Plan Assessment Ms Moran is a 79-year-old female with a hx of COPD, chronic hypoxemic respiratory failure O2, IDDM w neuropathy, Paroxysmal Afib, CVA, depression, HTN, steroid induced osteoporosis, & HFpEF presented to the ER for evaluation of epistaxis. Epistaxis had resolved spontaneously in ED after administration of Afrin nasal spray did not require any packing. His follow-up H&H is stable patient is going to be discharged home. Epistaxis Resolved. HTN Urgency in ED Had prior history of hypertension Now resolved Not on any meds at home Follow-up with PCP Leukocytosis Patient has chronic leukocytosis like lead from chronic steroid use however now it is higher which I think is reactive. No other signs of infection COPD / Chronic O2 Dependent Respiratory Failure The patient denies acute worsening of her dyspnea c/w budesonide, monteluklast prednisone, albuterol & Spiriva Paroxysmal A Fib / hx of CVA Continue Eliquis Chronic Diastolic CHF Patient is euvolemic at this time NIDDM with neuropathy c/w gabapentin and metformin Depression venlafaxine Osteoporosis Continue home med Dispo; home today Plan/VTE VTE Prophylaxis Ordered?: Yes VS, I&O, 24H, Fishbone Vital Signs/I&O Vital Signs Date Time Temp Pulse Resp B/P (MAP) Pulse Ox O2 Delivery O2 Flow Rate FiO2 07/29/21 14:00 98.2 72 16 120/61 (80) 96 Room Air 07/29/21 09:00 1.5 07/28/21 22:45 35 Laboratory Data 24H LABS Laboratory Tests 2 07/28/21 21:00: Immature Granulocyte % (Auto) 0.7, Neutrophils (%) (Auto) 76.4H, Lymphocytes (%) (Auto) 11.4L, Monocytes (%) (Auto) 9.8H, Eosinophils (%) (Auto) 1.2, Basophils (%) (Auto) 0.5, Neutrophils # (Auto) 9.9H, Lymphocytes # (Auto) 1.5, Monocytes # (Auto) 1.3H, Eosinophils # (Auto) 0.2, Basophils # (Auto) 0.1, Nucleated Red Blood Cells % (auto) 0.0, Prothrombin Time 13.0, Prothromb Time International Ratio 0.95, Activated Partial Thromboplast Time 29.6, Anion Gap 4L, Glomerular Filtration Rate 58.3, Lactic Acid Level 1.3, Calcium Level 8.8, Total Bilirubin 0.6, Direct Bilirubin 0.2, Aspartate Amino Transf (AST/SGOT) 10, Alanine Aminotransferase (ALT/SGPT) 17, Alkaline Phosphatase 62, Total Creatine Kinase 31, Creatine Kinase MB 2.4, Creatine Kinase MB Relative Index 7.74H, Troponin I 0.02, KZ-Dpb-Q-Type Natriuretic Peptide 886H, Total Protein 6.0L, Albumin 3.3, Albumin/Globulin Ratio 1.2, Thyroid Stimulating Hormone (TSH) 2.150 07/28/21 23:06: Coronavirus (COVID-19)(PCR) NEGATIVE, Influenza Type A (RT-PCR) NEGATIVE, Influenza Type B (RT-PCR) NEGATIVE, Respiratory Syncytial Virus (PCR) NEGATIVE 07/29/21 01:37: Nucleated Red Blood Cells % (auto) 0.0, Anion Gap 0L, Glomerular Filtration Rate > 60.0, Calcium Level 8.7L 07/29/21 05:27: Blood Gas Bicarbonate Standard 29.5, Venous Blood pH 7.402, Venous Blood Partial Pressure CO2 51.7H, Venous Blood Partial Pressure O2 85.7H, Venous Blood Total Carbon Dioxide 33.0H, Venous Blood HCO3 31.5H, Venous Blood Oxygen Saturation 96.3H, Venous Blood Base Excess 5.6H, Estimated Mean Plasma Glucose 192H, Hemoglobin A1c 8.3 07/29/21 13:11: Bedside Glucose ([facility]) 105 CBC/BMP Laboratory Tests 07/28/21 21:00 07/29/21 01:37 07/29/21 05:27 07/29/21 12:34 Tiera Moss MD Jul 29, 2021 17:14
[2021-07-29 20:53] VITALS: BP 124/73
[2021-07-29] MEDS ORDERED: HumaLOG INSULIN (NovoLOG) PER UNIT SC SCH (21:00)
== END 2021-07-29 19:40 | disposition home or self-care (01) ==
LOC: M ED 19:38 → M ED INP 19:39 → M MS5PR 07-29 03:50
PROVIDERS: ADMIT Internal Medicine; ATTEND Internal Medicine Nephrology
DX: R04.0 Epistaxis (principal); I16.0 Hypertensive urgency; D72.829 Elevated white blood cell count, unspecified; R00.0 Tachycardia, unspecified; R65.10 Systemic inflammatory response syndrome (SIRS) of non-infectious origin without acute organ dysfunction; J44.9 Chronic obstructive pulmonary disease, unspecified; J96.11 Chronic respiratory failure with hypoxia; Z99.81 Dependence on supplemental oxygen; E11.40 Type 2 diabetes mellitus with diabetic neuropathy, unspecified; I48.0 Paroxysmal atrial fibrillation; F32.9 Major depressive disorder, single episode, unspecified; I50.32 Chronic diastolic (congestive) heart failure; I11.0 Hypertensive heart disease with heart failure; I35.8 Other nonrheumatic aortic valve disorders; M81.8 Other osteoporosis without current pathological fracture; T38.0X5A Adverse effect of glucocorticoids and synthetic analogues, initial encounter; R53.83 Other fatigue; Z86.73 Personal history of transient ischemic attack (TIA), and cerebral infarction without residual deficits; Z88.0 Allergy status to penicillin; Z88.1 Allergy status to other antibiotic agents; Z88.8 Allergy status to other drugs, medicaments and biological substances; Z91.018 Allergy to other foods; Z87.891 Personal history of nicotine dependence; Z79.899 Other long term (current) drug therapy; Z79.01 Long term (current) use of anticoagulants; Z79.84 Long term (current) use of oral hypoglycemic drugs; Z79.52 Long term (current) use of systemic steroids
CPT/HCPCS: 36415; 71045; 80048; 80076; 82550; 82553; 82803; 83036; 83605; 83880; 84443; 84484; 85018; 85025; 85027; 85610; 85730; 87631; 90682; 93005; 93041; 94640; 94760; 96374; 99285; G0008; G0378; J7512

== ENCOUNTER 2021-10-18 10:37 | Inpatient (IN) | payer MEDICARE, OTHER ==
[~2021-10-18] VITALS: Ht 160 cm; Wt 63.7 kg
--- OUTSIDE RECORDS SUMMARY | 2021-10-18 10:43 | CCD | Continuity of Care Document ---
Author Author Mireya DAVIDSON MD Organization Unknown Address [address] [place] [address] Phone [phone] Care Team Providers Care Well Service Derrick Worker Name Role Phone Bryce Joyce M.D. AUTM [phone] AUTM Unavailable Problems Active Problems Provider Date Chronic hypoxemic respiratory failure Ross Davidson MD On set: 10/01/2015 Steroid Ross Davidson MD Onset: 01/28/2015 Body mass index 30+ - obesity Ross Davidson MD Onset: Dyspnea Ross Davidson MD Onset: 09/12/2012 Pulmonary emphysema Ross Davidson MD Onset: 09/12/2012 Obesity Ross Davidson MD Onset: 10/20/2011 Patient on oxygen Ross Davidson MD Onset: 10/12/2011 Chronic rhinitis Ross Davidson MD Onset: 06/15/2011 Emphysematous bronchitis Ross Davidson MD Onset: 02/09/20 11 Chronic respiratory failure Ross Davidson MD Onset: 02/08 Hypoxemia Ross Davidson MD Onset: 02/08/2011 Panacinar emphysema Ross Davidson MD Onset: 09/06/2018 Long-term current use of systemic steroid Luis Coleman Onset: 09/06/2018 Bleeding from nose Frederic Pradhan MD Onset: 09/06/2018 Ex-smoker Ross Davidson MD Onset: 09/17/2020 Social History Type Date Description Comments Sex Unknown ETOH Use Denies alcohol use Tobacco Use Start: Unknown End: Patient is a former smoker Recreational Drug Use Denies Drug Use Smoking Status Reviewed: 09/29/21 Patient is a former smoker Allergies and adverse reactions Active Allergies Criticality Reaction | Severity Comments Date MSG Unable to assess criticality Sinus Congestion 09/27/2010 Chocolate Unable to assess criticality 10/22/2008 Sudafed Unable to assess criticality 08/01/2007 Tequin Unable to assess criticality 08/01/2007 Augmentin Unable to assess criticality 09/03/2018 Clarithromycin Unable to assess criticality 09/03/2018 Medications Active Medications SIG Qnty Indications Ordering Provide r Date Albuterol Sulfate HFA 108(90Base) mcg/Act Aerosol Inhale 2 Puffs By Mouth Every 4 Hours as Needed 18units Ross Davidson MD 10/04/2021 Sinus Rinse Bottle Kit Packet use once daily 3months Kurtis Nuñez MD 02/26/2021 Budesonide/Formoterol Fumarate Dihydrate 160-4.5mcg/Act Aerosol Inhale 2 Puffs By Mouth Two Times A Day 10.2units Ross Davidson MD 05/11/2020 Budesonide 0.5mg/2ML Suspension use 1 vial via nebulizer two times a day 180units Luis Coleman 04/17/2019 Albuterol Sulfate (2 .5mg/3ML) 0.083% Nebulizer 1 vial via neb every 4 hours as needed 60units Un known Singulair 10mg Tablets 1 by mouth every night at bedtime 30tabs Ross Davidson MD Effexor XR 150mg Caps ER 24HR 1 by mouth every day Unknown Prednisone 10mg Tablets 1 by mouth every day Unknown Gabapentin 300mg Capsules 1 by mouth four times a day 120caps Unknown Oxygen 3L Cont Marras Unknown Spiriva Handihaler 18mcg Capsules inhale the contents of one capsule via handihaler by mouth in the morning 30caps Ross Davidson MD Eliquis 5mg Tablets 1 tab by mouth twice a day Unknown Trilogy Ventilator Device Unknown Metformin HCL 500mg Tablets 1 tab by mouth twice a day 6tabs Unknown Immunizations CPT Code Status Date Vaccine Lot # 63027 Given 08/20/2021 Flublock, Quadrivalent Q2036 Given 10/17/2016 Influenza Vaccine 3 Years Of Age Or Older (Flulaval) 65115 Given 10/05/2016 Influenza Virus Split 3 Yrs And Above For Intramuscular Use 23151 Given 09/14/2016 Influenza Virus Split 3 Yrs And Above For Intramuscular Use 78128 Given 10/01/2015 Prevnar 13 64584 Given 09/17/2015 Influenza Virus Split 3 Yrs And Above For Intramuscular Use 68440 Given 09/04/2014 Influenza Virus Split 3 Yrs And Above For Intramuscular Use Q2036 Given 09/18/2013 Influenza Vaccine 3 Years Of Age Or Older (Flulaval) Q2036 Given 09/04/2012 Influenza Vaccine 3 Years Of Age Or Older (Flulaval) Q2036 Given 10/11/2011 Influenza Vaccine 3 Years Of Age Or Older (Flulaval) 23260 Given 08/04/2010 Influenza Virus Split 3 Yrs And Above For Intramuscular Use 02995 Given 08/28/2008 Influenza Vaccine 60992 Given Unknown Pneumococcal PPSV23 Vital Signs Date Vital Result Comment 09/29/2021 1:41pm BP Systolic 138 mmHg BP Diastolic 62 mmHg Heart Rate 95 /min O2 % BldC Oximetry 981.5 % Height 61 inches 5'1" Weight 147.00 lb BMI (Body Mass Index) 27.8 kg/m2 [place] Body Weight 105 lb Weight 66.679 kg BSA (Body Surface Area) 1.66 m2 06/14/2021 2:52pm BP Systolic 120 mmHg BP Diastolic 80 mmHg Heart Rate 110 /min O2 % BldC Oximetry 973 % Height 61 inches 5'1" [place] Body Weight 105 lb Results Description No Information Available Procedures Date Code Description Status 09/29/2021 42191 Office/Outpatient Established Mo d MDM 30-39 Min Completed 06/14/2021 79257 Office/Outpatient Established Mo d MDM 30-39 Min Completed Medical Devices Description No Information Available Encounters Type Date Location Provider Dx Diagnosis Office Visit 09/29/2021 1:[facility] Jama Davidson MD J43.1 Panlobular emphysema J96.11 Chronic respiratory failure with hypoxia J96.12 Chronic respiratory failure with hypercapnia Z99.81 Dependence on supplemental o xygen Z87.891 Personal history of nicotine dependence Z79.52 vermin exterminator (current) use of s ystemic steroids Z79.02 detention (current) use of a ntithrombotics/antiplatelets Office Visit 06/14/2021 2:[facility]p [facility] Jama Davidson MD J43.1 Panlobular emphysema J96.11 Chronic respiratory failure with hypoxia J96.12 Chronic respiratory failure with hypercapnia Z99.81 Dependence on supplemental o xygen Z87.891 Personal history of nicotine dependence Z79.52 vermin exterminator (current) use of s ystemic steroids Z79.02 vermin exterminator (current) use of a ntithrombotics/antiplatelets Assessments Date Code Description Provider 09/29/2021 J43.1 Panlobular emphysema Ross benites MD 09/29/2021 J96.11 Chronic respiratory failure with hypoxia Ross Davidson MD 09/29/2021 J96.12 Chronic respiratory failure with hypercapnia Ross Davidson MD 09/29/2021 Z99.81 Dependence on supplemental oxyge n Ross Davidson MD 09/29/2021 Z87.891 Personal history of nicotine dep calvin Davidson MD 09/29/2021 Z79.52 detention (current) use of syste rosy steroids Ross Davidson MD 09/29/2021 Z79.02 detention (current) use of antit hrombotics/antiplatelets Ross Davidson MD 06/14/2021 J43.1 Panlobular emphysema Ross benites MD 06/14/2021 J96.11 Chronic respiratory failure with hypoxia Ross Davidson MD 06/14/2021 J96.12 Chronic respiratory failure with hypercapnia Ross Davidson MD 06/14/2021 Z99.81 Dependence on supplemental oxyge n Ross Davidson MD 06/14/2021 Z87.891 Personal history of nicotine dep calvin Davidson MD 06/14/2021 Z79.52 vermin exterminator (current) use of syste rosy steroids Ross Davidson MD 06/14/2021 Z79.02 detention (current) use of antit hrombotics/antiplatelets Ross Davidson MD Plan of Treatment Future Appointment(s):* 01/25/2022 3:00 pm - Ross Davidson MD at [facility] Pulmonary/Thoracic 09/29/2021 - Ross Davidson MD* J43.1 Panlobular emphysema * J96.11 Chronic respiratory failure with hypoxia * J96.12 Chronic respiratory failure with hypercapnia * Z99.81 Dependence on supplemental oxygen * Z87.891 Personal history of nicotine dependence * Z79.52 detention (current) use of systemic steroids * Z79.02 detention (current) use of antithrombotics/antiplatelets * * Comments:* ~ At this point, no changes were made in her regimen. She is up to date on her scripts. All things considered, she is doing about as well as can be expected. We had gotten her a Trilogy ventilator for home use, but she could not at all get used to it and, therefore, is completely noncompliant with it.~ At this point, we will proceed as outlined above. Immunizations managed through primary.~ I have offered her a follow-up visit here in 3-to-4 months with no additional testing. Certainly, if she is able to make it here, we would be more than happy to see her, but the time will come when she will be unable to make these visits, and we conveyed our understanding. We await the outcome of the above. * Follow up:* 3-4 months....no testing Functional Status Description No Information Available Mental Status Description No Information Available Referrals Description No Information Available
--- OUTSIDE RECORDS SUMMARY | 2021-10-18 10:43 | CCD ---
Continuity of Care Document (CCD) Created on: 09/27/2021 Mireya Moran External Reference #: [id number] : [id number] Sex: Female Author Author Mireya JOYCE M.D. Organization Unknown Address [address] [facility] [address] [place] [address] Phone [phone] Care Team Providers Care Fundraising Specialist Name Role Phone Ross Davidson M.D. AUTM [phone] Problems Active Problems Provider Date Chronic obstructive lung disease Bryce Joyce M.D. Ons et: 10/02/2013 Note: O2 and steroid dependent Type 2 diabetes mellitus Bryce Joyce M.D. Onset: 09/20 Hyperlipidemia Bryce Joyce M.D. Onset: 3 Benign essential hypertension Bryce Joyce M.D. Onset: 10/02/2013 Umbilical hernia Bryce Joyce M.D. Onset: 3 Inguinal hernia without obstruction AND without gangre ne Bryce Joyce M.D. Onset: 10/02/2013 Note: Per Dr Meeks high risk for repa ir given respiratory status Coronary arteriosclerosis Bryce Joyce M.D. Onset: Cerebrovascular disease Bryce Joyce M.D. Onset: 10/02 Essential hypertension Bryce Joyce M.D. Onset: 2014 Social History Type Date Description Comments Sex Unknown ETOH Use Denies alcohol use Tobacco Use Start: Unknown End: Unknown Patient is a former smoker Recreational Drug Use Denies Drug Use Allergies and adverse reactions Active Allergies Criticality Reaction | Severity Comments Date Augmentin Unable to assess criticality 10/02/2013 Clarithromycin Unable to assess criticality 10/02/2013 Sudafed Unable to assess criticality 10/02/2013 Chocolate Unable to assess criticality 10/02/2013 Kazakh Food Unable to assess criticality 10/02/2013 Medications Active Medications SIG Qnty Indications Ordering Provide r Date Metformin HCL 500mg Tablets take one tablet by mouth twice a day 180tabs Bryce Joyce M .D. 05/20/2021 Montelukast Sodium 10mg Tablets Take 1 Tablet By Mouth AT Bedtime Maximum Daily Dose = 1 90tabs Bryce Joyce M.D. 04/13/2021 Tramadol HCL 50mg Tablets 1 tab by mouth three times a day as needed pain. do not drive or operate equipment while taking [id number] 90taBryce Rogers M.D. 12/30/19 21 Albuterol Sulfate HFA 108(90Base) mcg/Act Aerosol Inhale Two Puffs By Mouth Every 4 To 6 Hours as Needed 18units Bryce Joyce M.D. 12/16/2020 Spiriva Respimat 1.25mcg/Act Aeros ol Inhale 2 Puffs By Mouth Once A Day 12units Tutu Joyce M.D. 04/17/2020 Prevnar 13 Suspension as directed 1dose Bryce Joyce M.D. 09/23/2019 Fluticasone Propionate 50mcg/Act Suspension [place] 2 Sprays Each Nostril Every Day as Directed 48units Bryce Joyce M.D. 08/22/2019 Gabapentin 600mg Tablets Take One Tablet By Mouth Four Times A Day 360tabs Bryce Joyce M.D . 05/01/2018 Prednisone 10mg Tablets Take One Tablet By Mouth Every Day 90tabs Bryce Joyce M.D. 09/15/20 17 Symbicort 160-4.5mcg/Act Aerosol 2 puffs bid. 1units Bryce Joyce M.D. 10/04/20 13 Oxygen 3.5 LPM to 4 LMP Bryce Joyce M.D. 10/02/2013 Venlafaxine HCL ER 150mg Caps ER 2 4HR Take One Capsule By Mouth Every Day Maximum Daily Dose = 1 90caps Bryce Joyce M.D. 10/02/2013 Ventolin HFA 108(90Base) mcg/Act A erosol inhale 2 puffs by mouth every 4 to 6 hours as needed 24gm Bryce Joyce M.D. 10/02/2013 Albuterol Sulfate (2 .5mg/3ML) 0.083% Nebulizer Use 1 Vial Via Nebulizer Every 4 Hours as Needed 300units Bryce Joyce M.D. 10/02/2013 Tears Naturale II Solution Unknown Budesonide 0.5mg/2ML Suspension use one vial in nebulizer once twice a day Ryan Davidson M.D. Eliquis 5mg Tablets one po bid (only taking 1 qd) Unknown Atorvastatin Calcium 40mg Tablets 1 by mouth every day 90taBryce Rogers M.D. 00 Calcium Citrate 950(200CA) mg Tabl ets 1 p.o. qd Unknown Metoprolol Tartrate 25mg Tablets take 1/2 tablet by mouth twice a day 90taBryce Rogers M .D. Vitamin D (Ergocalciferol) 1.25mg (77053 Ut) Capsules 1 p.o. qd Unknown Immunizations CPT Code Status Date Vaccine Lot # 21602 Given 08/26/2020 Influenza Virus Vaccine, Quadrivalent, Slit Virus, Im Use 3Y & Up [id number] 18764 Given 09/23/2019 Influenza Virus Vaccine, Quadrivalent, Slit Virus, Im Use 3Y & Up [id number] 43400 Given 08/13/2018 Influenza Virus Vaccine, Quadrivalent, Slit Virus, Im Use 3Y & Up [id number] 49812 Given 09/08/2017 Influenza Virus Vaccine, Quadrivalent, Slit Virus, Im Use 3Y & Up [id number] 52722 Given 10/18/2016 Influenza Virus Vaccine, Quadrivalent, Slit Virus, Im Use 3Y & Up [id number] 88982 Given 09/11/2015 Influenza Vaccin e (Fluzone) 3Yrs Of Age Or Older Medicare Plans [id number] 07457 Given 10/02/2013 Influenza Vaccin e (Fluzone) 3Yrs Of Age Or Older Medicare Plans 49490 Given 10/02/2013 Influenza Virus Vac. Split Virus Individuals 3 Years And Above [id number] Vital Signs Date Vital Result Comment 09/27/2021 2:07pm BP Systolic 122 mmHg BP Diastolic 54 mmHg Body Temperature 98.1 F Heart Rate 80 /min Respiratory Rate 16 /min Height 62 inches 5'2" [place] Body Weight 110 lb O2 % BldC Oximetry 98 % (On O2 @ 1.5 LPM NC ) 08/25/2021 3:58pm BP Systolic 122 mmHg BP Diastolic 62 mmHg Body Temperature 98.5 F Heart Rate 67 /min Respiratory Rate 18 /min Weight 134.00 lb O2 % BldC Oximetry 97 % Results Test Acquired Date Facility Test Result H/L Range Note Laboratory test finding 09/27/2021 [facility] Hemoglobin A1c 7.3 % High 4.50-6.20 Cardiac Marker Panel 05/31/2021 [facility] ( [facility]) [phone] CPK Creatine Phosphokinase 40 U/L Normal 26-19 2 CK-MB Value Mass 2.0 NG/ML Normal <3.6 MB/CK Relative Index 5.00 High < Or =4 1 Troponin I 0.13 NG/ML High < 0.10 2 Respiratory Panel 05/31[facility]2021 [facility] [phone] Respiratory Panel This respiratory <SEE NOTE> 3 Laboratory test finding 05/31/2021 [facility] ([facility]) [phone] NT-Pro BNP 1363 pg/mL High <450 Thyroid Stimulating Hormone 2.010 uIU/ML Normal 0.358-3.740 Basic Metabolic Profile 05/31/2021 [facility] ([facility]) [phone] Glucose, Fasting 127 mg/dL High 70-100 Blood Urea Nitrogen 32 mg/dL High 7-18 Creatinine For GFR 0.84 mg/dL Normal 0.55-1.30 Glomerular Filtration Rate > 60.0 Normal >39 4 Sodium Level 144 mEq/L Normal 136-145 Potassium Serum 4.4 mEq/L Normal 3.5-5.1 Chloride Level 106 mEq/L Normal 98-107 Carbon Dioxide Level 32 mEq/L Normal 21-32 Anion Gap 6 mEq/L Low 8-16 Calcium Level 9.1 mg/dL Normal 8.8-10.2 Liver Profile 05/31/2021 [facility] [phone] Ast/Sgot 8 U/L Normal 7-37 Alt/SGPT 19 U/L Normal 12-78 Alkaline Phosphatase 55 U/L Normal 45-117 Bilirubin,Total 0.4 mg/dL Normal 0.2-1.0 Bilirubin,Direct 0.1 mg/dL Normal 0.0-0.2 Total Protein 6.2 GM/DL Low 6.4-8.2 Albumin 3.3 GM/DL Normal 3.2-5.2 Albumin/Globulin Ratio 1.1 Low 1.2-2.2 CBC With Differential 05/31/2021 [facility]) [phone] White Blood Count 15.7 10 High 4.0-10.0 Red Blood Count 4.27 10 Normal 4.00-5.40 Hemoglobin 11.5 g/dL Low 12.0-15.5 Hematocrit 39.8 % Normal 36.0-47.0 Mean Corpuscular Volume 93.2 fl Normal 80.0-96.0 Mean Corpuscular Hemoglobin 26.9 pg Low 27.0-33.0 Mean Corpuscular HGB Conc 28.9 g/dL Low 32.0-36.5 Red Cell Distribution Width 13.5 % Normal 11.5-14.5 Platelet Count, Automated 368 10 Normal 150-450 Neutrophils % 76.8 % High 36.0-66.0 Lymph % 12.6 % Low 24.0-44.0 [place] % 7.9 % Normal 2.0-8.0 Eos % 1.7 % Normal 0.0-3.0 Baso % 0.6 % Normal 0.0-1.0 Immature Granulocyte % 0.4 % Normal 0-3.0 Nucleated Red Blood Cell % 0.0 % Normal 0-0 Neutrophils # 12.0 10 High 1.5-8.5 Lymph # 2.0 10 Normal 1.5-5.0 [place] # 1.2 10 High 0.0-0.8 Eos # 0.3 10 Normal 0.0-0.5 Baso # 0.1 10 Normal 0.0-0.2 Venous Blood Gas 05/31/2021 [facility] ([facility]) [phone] Venous PH 7.341 units Normal 7.330-7.430 Venous Partial Pressure Co2 64.5 mmHg High 38.0-50.0 Venous Partial Pressure O2 40.2 mmHg Normal 30.0-50.0 Venous Total Co2 36.1 mEq/L High 24.0-28.0 Venous Hco3 34.1 mEq/L High 23.0-27.0 Venous Base Excess 6.5 High -2.0-2.0 Venous Standard Hco3 29.8 mEq/L Normal Venous O2 Saturation 72.6 % Normal 60.0-80.0 PT & Aptt 05/31/2021 [facility] (I [facility]face) [phone] Prothrombin Time 13.9 seconds Normal 12.5-14.3 Inr 1.05 Normal 5 Partial Thromboplastin Time 30.9 seconds Normal 24.2-38.5 Cardiac Marker Panel 05/31/2021 [facility] ( Interface) [phone] CPK Creatine Phosphokinase 37 U/L Normal 26-19 2 CK-MB Value Mass 3.1 NG/ML Normal <3.6 MB/CK Relative Index 8.38 High < Or =4 6 Troponin I 0.11 NG/ML High < 0.10 7 CMP 05/19/2021 [facility] Glu 328 mg/dL High 70 - 110 8 BUN 29 mg/dL High 8 - 23 Creat 0.9 mg/dL 0.5 - 1.0 BUN/Creatinine Ratio 31.6 CALC Na 136 mmol/L 136 - 145 K 4.8 mmol/L 3.5 - 5.1 CL 95.7 mmol/L Low 98.0 - 107.0 Co2 29.3 mmol/L High 22.0 - 29.0 CA 9.0 mg/dL 8.6 - 10.2 TP 5.6 g/dL Low 6.6 - 8.7 Alb 4.1 g/dL 3.4 - 4.8 A/G Ratio 2.7 CALC Globulin 1.5 CALC Alp 56.5 U/L 35 - 129 Alt (SGPT) 12 U/L 0 - 41 Ast (Sgot) 10 U/L 0 - 40 Tbili 0.26 mg/dL 0.0 - 1.2 Osmolality-Calculated 290.8 CALC Anion Gap 16 mmol/L eGFR 70 # Calc 9 eGFR Non-Afr. Australian 61 # Calc 10 Lipid Panel 05/19/2021 [facility] Chol 197 mg/dL 0 - 200 Trig 122 mg/dL 40 - 200 HDL 72 mg/dL High 45 - 65 LDL_C 101 Calc 75 - 129 Cho/HDL Ratio 2.8 CALC CBC 05/19/2021 [facility] WBC 9.2 10E3/uL 4.1 - 10.9 RBC 3.91 10E6/uL Low 4.20 - 6.30 HGB 10.4 g/dL Low 12.0 - 18.0 HCT 36.2 % Low 37.0 - 51.0 MCV 92.6 fL 80.0 - 97.0 MCH 26.6 pg 26.0 - 32.0 MCHC 28.7 g/dL Low 31.0 - 36.0 PLT 309 10E3/uL 140 - 440 RDW-CV 13.1 % 11.5 - 14.5 Lym% 6.7 % Low 10.0 - 58.5 Neut% 91.6 % 37.0 - 92.0 MXD% 1.7 % 0.1 - 24.0 Lym# 0.6 10E3/uL 0.6 - 4.1 Neut# 8.4 % High 2.0 - 7.8 MXD# 0.2 10E3/uL 0.0 - 1.8 MPV 11.4 fL 9.0 - 13.0 Laboratory test finding 05/19/2021 [facility] Hemoglobin A1c 8.3 % High 4.50-6.20 1 DIAGNOSIS CRITERIA MMB ng/ml Relative Index (RI) NON-AMI < or = 5 N/A ALANIS ZONE > 5 < or = 4 AMI > 5 > 4 2 Troponin I Reference Interva l for Siemens Classana LOCI: 99th Percentile= 0.00-0.045 ng/ml Risk Stratification: <= 0.10 ng/ml Decreased Risk for Adverse Clinical Events. 0.10-1.50 ng/ml Increased Risk for Adv erse Clinical Events. Evaluation of additional criterion and/or repeat testing in 2-6 hours is suggested to rule out myocardial damage. >= 1.50 ng/ml Indicative of Myocardial Injury. 3 This respiratory PCR panel d etects Influenza A H1, H3 and 2009 H1 viruses, Influenza B virus, Resp iratory Syncytial Virus, Human metapneumovirus, Parainfluenza virus 1, 2, 3 and 4, Adenovirus, Rhinovirus/Enterovirus, Coronavirus HKU1, NL63, OC43, 229E and SARS-CoV-2 (COVID 19), Bordetella pertussis, Bordetella parapertussis, Mycoplasma pneumoniae and Chlamydia pneumoniae. NEGATIVE by MULTIPLEXED NUCLEIC ACID PCR SARS-CoV-2 (COVID 19) NEGATIVE - SARS-CoV-2 (COVID19) 4 Units are mL/min/1.73 m2 Chronic Kidney Disease Staging per NKF: Stage I & II GFR >=60 Normal to Mildly Decreased Stage III GFR 30-59 Moderately Decreased Stage IV GFR 15-29 Severely Decreased Stage V GFR <15 Very Little GFR Left ESRD GFR <15 on RESOLUTION EXPERT 5 THERAPUTIC HUMAN INR VALUES INDICATIONS NORMAL RANGES PROPHYLAXIS/TREATMENT OF: VENOUS THROMBOSIS 2.0-3.0 PULMONARY EMBOLISM 2.0-3.0 PREVENTION OF SYSTEMIC EMBOLISM FROM: TISSUE HEART VALVES 2.0-3.0 ACUTE MYOCARDIAL INFARCTION 2.0-3.0 VALVULAR HEART DISEASE 2.0-3.0 ATRIAL FIBRILLATION 2.0-3.0 MECHANICAL VALVES(HIGH RISK) 2.5-3.5 RECURRENT MYOCARDIAL INFARCTION 2.5-3.5 6 DIAGNOSIS CRITERIA MMB ng/ml Relative Index (RI) NON-AMI < or = 5 N/A ALANIS ZONE > 5 < or = 4 AMI > 5 > 4 7 Troponin I Reference Interva l for [facility] LOCI: 99th Percentile= 0.00-0.045 ng/ml Risk Stratification: <= 0.10 ng/ml Decreased Risk for Adverse Clinical Events. 0.10-1.50 ng/ml Increased Risk for Adv erse Clinical Events. Evaluation of additional criterion and/or repeat testing in 2-6 hours is suggested to rule out myocardial damage. >= 1.50 ng/ml Indicative of Myocardial Injury. 8 NORMAL RANGES Age WBC RBC HGB HCT MCV PLT Adult M 4.1-10.9 4.20-6.30 12.0-18.0 37.0-51.0 80-97 140-440 Adult F 4.1-10.9 4.04-5.48 12.0-18.0 37.0-51.0 80-97 140-440 0 -1 Yr 5.0-20.0 3.9-5.9 15-18 MV: 44 MV: 91 MV: 277 2-9 Yr. 6.0-17.0 3.8-5.4 11-13 MV: 37 MV: 78 MV: 300 10 Yrs. 5.0-13.0 3.8-5.4 12-15 MV: 39 MV: 80 MV: 250 NOTE: * FOR ADULT BLACK MALES AND FEMALES, NORMAL WBC IS 2.9-7.7 K/ML * FOR ADULT BLACK MALES AND FEMALES, NORMAL RBC,HGB, AND HCT IS 5% LESS SOURCE FOR DATA: [email or web address] 1800 OPERATION MANUAL( AUTOMATED BLOOD COUNTS AND DIFF.) APPENDIX B-3 CHRONIC KIDNEY DISEASE STAGING PER NKF: MALE GFR INTERPRETATION: 20-49 YRS: >60 mL/min Normal 50-59 YRS: >56 mL/min Normal 60-69 YRS: >49 mL/min Normal 70-79 YRS: >42 mL/min Normal 80 and above >35 mL/min Normal FEMALE GRF INTERPRETATION: 20-39 YRS: >60 mL/min Normal 40-49 YRS: >58 mL/min Normal 50-59 YRS: >51 mL/min Normal 60-69 YRS: >45 mL/min Normal 70-79 YRS: >39 mL/min Normal 80 and above >32 mL/min NormalCLASSIFICATION CHOLESTEROL FOR ADULTS CHILDREN/ADOLESCENTS* DESIRABLE: <200 MG/DL <170 MG/DL BORDER-LINE HIGH RISK: 200-239 MG/DL 170-199 MG/DL HIGH RISK: >240 MG/DL >200 MG/DL CLASS. FOR PRIMARY LDL CHOL PREVENTION: LDL CHOL-CHILD/ADOLESCENTS* DESIRABLE: <130 MG/DL <110 MG/DL BORDERLINE-HIGH RISK: 130-159 MG/DL 110-129 MG/DL HIGH RISK: >160 MG/DL >130 MG/DL *CHILDREN AND ADOLESCENTS REPRESENTS INDIVIDUALA AGED 2-19 YEARS EXCLUSIVE. 9 CKD-EPI 10 CKD-EPI Procedures Date Code Description Status 09/27/2021 43423 Office/Outpatient Established Mo d MDM 30-39 Min Completed 08/25/2021 77129 Office/Outpatient Established Mo d MDM 30-39 Min Completed 06/04/2021 53365 Office/Outpatient Established Mo d MDM 30-39 Min Completed 05/19/2021 13270 Office/Outpatient Established Mo d MDM 30-39 Min Completed Medical Devices Description No Information Available Encounters Type Date Location Provider Dx Diagnosis Office Visit 09/27/2021 1:45p [facility] Bryce Joyce M. D. I67.9 Cerebrovascular disease, unspecified J44.9 Chronic obstructive pulmonar y disease, unspecified E11.9 Type 2 diabetes mellitus wit hout complications I48.91 Unspecified atrial fibrillat ion E78.5 Hyperlipidemia, unspecified Office Visit 08/25/2021 1:45p [facility] Bryce Joyce M. D. I67.9 Cerebrovascular disease, unspecified J44.9 Chronic obstructive pulmonar y disease, unspecified Office Visit 06/04/2021 11:45a [facility] Bryce Joyce M. D. J44.9 Chronic obstructive pulmonary disease, unspecified Office Visit 05/19/2021 1:30p [facility] Bryce Joyce M. D. J44.9 Chronic obstructive pulmonary disease, unspecified E11.9 Type 2 diabetes mellitus wit hout complications I48.91 Unspecified atrial fibrillat ion E78.5 Hyperlipidemia, unspecified Assessments Date Code Description Provider 09/27/2021 I67.9 Cerebrovascular disease, unspeci fied Bryce Joyce M.D. 09/27/2021 J44.9 Chronic obstructive pulmonary di sease, unspecified Bryce Joyce M.D. 09/27/2021 E11.9 Type 2 diabetes mellitus without complications Bryce Joyce M.D. 09/27/2021 I48.91 Unspecified atrial fibrillation Bryce Joyce M.D. 09/27/2021 E78.5 Hyperlipidemia, unspecified [facility] Bryce blankenship M.D. 08/25/2021 I67.9 Cerebrovascular disease, unspeci fied Bryce Joyce M.D. 08/25/2021 J44.9 Chronic obstructive pulmonary di sease, unspecified Bryce Joyce M.D. 06/04/2021 J44.9 Chronic obstructive pulmonary di sease, unspecified Bryce Joyce M.D. 05/19/2021 J44.9 Chronic obstructive pulmonary di sease, unspecified Bryce Joyce M.D. 05/19/2021 E11.9 Type 2 diabetes mellitus without complications Bryce Joyce M.D. 05/19/2021 I48.91 Unspecified atrial fibrillation Bryce Joyce M.D. 05/19/2021 E78.5 Hyperlipidemia, [facility] of Treatment Future Appointment(s):* 12/28/2021 3:00 pm - Bryce Joyce M.D. at [facility] Functional Status Description No Information Available Mental Status Description No Information Available Referrals Description No Information Available
--- OUTSIDE RECORDS SUMMARY | 2021-10-18 10:43 | CCD | Continuity of Care Document ---
Author Author Mireya JOYCE M.D. Organization Unknown Address 3 [facility] [address] [place] [address] Phone [phone] Care Team Providers Care Hr Leader Name Role Phone Ross Davidson M.D. AUTM [phone] Problems Active Problems Provider Date Chronic obstructive [...] 10/02/2013 Chocolate Unable to assess criticality 10/02/2013 [employer] Unable to assess criticality 10/02/2013 Medications [...] not drive or operate equipment while taking [id number] 90taBryce Rogers M.D. 12/30/19 21 Albuterol Sulfate HFA 108(90Base) mcg/Act Aerosol Inhale Two Puffs By Mouth Every 4 To 6 Hours as Needed 18units Bryce Joyce M.D. 12/16/2020 Spiriva Respimat 1.25mcg/Act Aeros ol Inhale 2 Puffs By Mouth Once A Day 12units Tutu Joyce M.D. 04/17/2020 Prevnar 13 Suspension as directed 1dose Bryce Joyce M.D. 09/23/2019 Fluticasone Propionate 50mcg/Act Suspension [place] 2 Sprays Each Nostril Every Day as [...] Oxygen 3.5 LPM to 4 LMP Bryce Jocye M.D. 10/02/2013 Venlafaxine HCL ER 150mg Caps [...] Rogers M .D. Vitamin D (Ergocalciferol) 1.25mg (21235 Ut) Capsules 1 p.o. qd Unknown Immunizations CPT Code Status Date Vaccine Lot # 07609 Given 08/26/2020 Influenza Virus Vaccine, Quadrivalent, Slit Virus, Im Use 3Y & Up [id number] 16410 Given 09/23/2019 Influenza Virus Vaccine, Quadrivalent, Slit Virus, Im Use 3Y & Up [id number] 05170 Given 08/13/2018 Influenza Virus Vaccine, Quadrivalent, Slit Virus, Im Use 3Y & Up [id number] 33683 Given 09/08/2017 Influenza Virus Vaccine, Quadrivalent, Slit Virus, Im Use 3Y & Up [id number] 34964 Given 10/18/2016 Influenza Virus Vaccine, Quadrivalent, Slit Virus, Im Use 3Y & Up [id number] 52702 Given 09/11/2015 Influenza Vaccin e (Fluzone) 3Yrs Of Age Or Older Medicare Plans [id number] 86041 Given 10/02/2013 Influenza Vaccin e (Fluzone) 3Yrs Of Age Or Older Medicare Plans 88621 Given 10/02/2013 Influenza Virus Vac. Split Virus Individuals 3 Years And Above [id number] Vital Signs Date Vital Result Comment 09/27/2021 2:07pm BP Systolic 122 mmHg BP Diastolic 54 mmHg Body Temperature 98.1 F Heart Rate 80 /min Respiratory Rate 16 /min Height 62 inches 5'2" [place] Body Weight 110 lb O2 % BldC Oximetry 98 % (On O2 @ 1.5 LPM NC ) 08/25/2021 3:58pm BP Systolic 122 mmHg BP Diastolic 62 mmHg Body Temperature 98.5 F Heart Rate 67 /min Respiratory Rate 18 /min Weight 134.00 lb O2 % BldC Oximetry 97 % Results Test Acquired Date Facility Test Result H/L Range Note Lipid Panel 09/27/2021 [facility] Chol 157 mg/dL 0 - 200 Trig 113 mg/dL 40 - 200 HDL 73 mg/dL High 45 - 65 LDL_C 62 Calc Low 75 - 129 Cho/HDL Ratio 2.2 CALC Laboratory test finding 09/27/2021 [facility] Hemoglobin A1c 7.3 % High 4.50-6.20 CMP 09/27/2021 [facility] Glu 177 mg/dL High 70 - 110 BUN 27 mg/dL High 8 - 23 Creat 0.8 mg/dL 0.5 - 1.0 BUN/Creatinine Ratio 35.5 CALC Na 141 mmol/L 136 - 145 K 5.0 mmol/L 3.5 - 5.1 CL 98.7 mmol/L 98.0 - 107.0 Co2 31.0 mmol/L High 22.0 - 29.0 CA 9.9 mg/dL 8.6 - 10.2 TP 5.6 g/dL Low 6.6 - 8.7 Alb 4.2 g/dL 3.4 - 4.8 A/G Ratio 2.9 CALC Globulin 1.4 CALC Alp 55.0 U/L 35 - 129 Alt (SGPT) 13 U/L 0 - 41 Ast (Sgot) 12 U/L 0 - 40 Tbili 0.25 mg/dL 0.0 - 1.2 Osmolality-Calculated 290.0 CALC Anion Gap 16 mmol/L eGFR 81 # Calc 1 eGFR Non-Afr. French 70 # Calc 2 Cardiac Marker Panel 05/31/2021 [facility] ( Interface) [phone] CPK Creatine Phosphokinase 40 U/L Normal 26-19 2 CK-MB Value Mass 2.0 NG/ML Normal <3.6 MB/CK Relative Index 5.00 High < Or =4 3 Troponin I 0.13 NG/ML High < 0.10 4 Respiratory Panel 05/31/2021 [facility] (I nterface) [phone] Respiratory Panel This respiratory <SEE NOTE> 5 Laboratory test finding 05/31/2021 [facility] (Interface) [phone] NT-Pro BNP 1363 pg/mL High <450 Thyroid Stimulating Hormone 2.010 uIU/ML Normal 0.358-3.740 Basic Metabolic Profile 05/31/2021 [facility] (Interface) [phone] Glucose, Fasting 127 mg/dL High 70-100 Blood Urea Nitrogen 32 mg/dL High 7-18 Creatinine For GFR 0.84 mg/dL Normal 0.55-1.30 Glomerular Filtration Rate > 60.0 Normal >39 6 Sodium Level 144 mEq/L Normal 136-145 Potassium Serum 4.4 mEq/L Normal 3.5-5.1 Chloride Level 106 mEq/L Normal 98-107 Carbon Dioxide Level 32 mEq/L Normal 21-32 Anion Gap 6 mEq/L Low 8-16 Calcium Level 9.1 mg/dL Normal 8.8-10.2 Liver Profile 05/31/2021 [facility] [phone] Ast/Sgot 8 U/L Normal 7-37 Alt/SGPT 19 U/L Normal 12-78 Alkaline Phosphatase 55 U/L Normal 45-117 Bilirubin,Total 0.4 mg/dL Normal 0.2-1.0 Bilirubin,Direct 0.1 mg/dL Normal 0.0-0.2 Total Protein 6.2 GM/DL Low 6.4-8.2 Albumin 3.3 GM/DL Normal 3.2-5.2 Albumin/Globulin Ratio 1.1 Low 1.2-2.2 CBC With Differential 05/31/2021 [facility] (Interface) [phone] White Blood Count 15.7 10 High 4.0-10.0 [...] 36.0-66.0 Lymph % 12.6 % Low 24.0-44.0 [place] % 7.9 % Normal 2.0-8.0 Eos % 1.7 % Normal 0.0-3.0 Baso % 0.6 % Normal 0.0-1.0 Immature Granulocyte % 0.4 % Normal 0-3.0 Nucleated Red Blood Cell % 0.0 % Normal 0-0 Neutrophils # 12.0 10 High 1.5-8.5 Lymph # 2.0 10 Normal 1.5-5.0 [place] # 1.2 10 High 0.0-0.8 Eos # 0.3 10 Normal 0.0-0.5 Baso # 0.1 10 Normal 0.0-0.2 Venous Blood Gas 05/31/2021 [facility]) [phone] Venous PH 7.341 units Normal 7.330-7.430 Venous Partial Pressure Co2 64.5 mmHg High 38.0-50.0 Venous Partial Pressure O2 40.2 mmHg Normal 30.0-50.0 Venous Total Co2 36.1 mEq/L High 24.0-28.0 Venous Hco3 34.1 mEq/L High 23.0-27.0 Venous Base Excess 6.5 High -2.0-2.0 Venous Standard Hco3 29.8 mEq/L Normal Venous O2 Saturation 72.6 % Normal 60.0-80.0 PT & Aptt 05/31/2021 [facility]) [phone] Prothrombin Time 13.9 seconds Normal 12.5-14.3 Inr 1.05 Normal 7 Partial Thromboplastin Time 30.9 seconds Normal 24.2-38.5 Cardiac Marker Panel 05/31/2021 [facility]) [phone] CPK Creatine Phosphokinase 37 U/L Normal 26-19 2 CK-MB Value Mass 3.1 NG/ML Normal <3.6 MB/CK Relative Index 8.38 High < Or =4 8 Troponin I 0.11 NG/ML High < 0.10 9 CMP 05/19/2021 [facility] Glu 328 mg/dL High 70 - 110 10 BUN 29 mg/dL High 8 - 23 [...] Gap 16 mmol/L eGFR 70 # Calc 11 eGFR Non-Afr. French 61 # Calc 12 Lipid Panel 05/19/2021 [facility] Chol 197 mg/dL [...] 9.0 - 13.0 Laboratory test finding 05/19/2021 [facility] Hemoglobin A1c 8.3 % High 4.50-6.20 1 CKD-EPI 2 CKD-EPI 3 DIAGNOSIS CRITERIA MMB ng/ml Relative Index (RI) NON-AMI < or = 5 N/A ALANIS ZONE > 5 < or = 4 AMI > 5 > 4 4 Troponin I Reference Interva l for [employer]) LOCI: 99th Percentile= 0.00-0.045 ng/ml Risk Stratification: <= 0.10 ng/ml Decreased Risk for Adverse Clinical Events. 0.10-1.50 ng/ml Increased Risk for Adv erse Clinical Events. Evaluation of additional criterion and/or repeat testing in 2-6 hours is suggested to rule out myocardial damage. >= 1.50 ng/ml Indicative of Myocardial Injury. 5 This respiratory PCR panel d etects Influenza A H1, H3 and 2009 H1 viruses, Influenza B virus, Resp iratory Syncytial Virus, Human metapneumovirus, Parainfluenza virus 1, 2, 3 and 4, Adenovirus, Rhinovirus/Enterovirus, Coronavirus HKU1, NL63, OC43, 229E and SARS-CoV-2 (COVID 19), Bordetella pertussis, Bordetella parapertussis, Mycoplasma pneumoniae and Chlamydia pneumoniae. NEGATIVE by MULTIPLEXED NUCLEIC ACID PCR SARS-CoV-2 (COVID 19) NEGATIVE - SARS-CoV-2 (COVID19) 6 Units are mL/min/1.73 m2 Chronic Kidney Disease Staging per NKF: Stage I & II GFR >=60 Normal to Mildly Decreased Stage III GFR 30-59 Moderately Decreased Stage IV GFR 15-29 Severely Decreased Stage V GFR <15 Very Little GFR Left ESRD GFR <15 on [employer]PA[employer]ER 7 THERAPUTIC HUMAN INR VALUES INDICATIONS NORMAL RANGES PROPHYLAXIS/TREATMENT OF: VENOUS THROMBOSIS 2.0-3.0 PULMONARY EMBOLISM 2.0-3.0 PREVENTION OF SYSTEMIC EMBOLISM FROM: TISSUE HEART VALVES 2.0-3.0 ACUTE MYOCARDIAL INFARCTION 2.0-3.0 VALVULAR HEART DISEASE 2.0-3.0 ATRIAL FIBRILLATION 2.0-3.0 MECHANICAL VALVES(HIGH RISK) 2.5-3.5 RECURRENT MYOCARDIAL INFARCTION 2.5-3.5 8 DIAGNOSIS CRITERIA MMB ng/ml Relative Index (RI) NON-AMI < or = 5 N/A ALANIS ZONE > 5 < or = 4 AMI > 5 > 4 9 Troponin I Reference Interva l for [employer] [place] LOCI: 99th Percentile= 0.00-0.045 ng/ml Risk Stratification: <= 0.10 ng/ml Decreased Risk for Adverse Clinical Events. 0.10-1.50 ng/ml Increased Risk for Adv erse Clinical Events. Evaluation of additional criterion and/or repeat testing in 2-6 hours is suggested to rule out myocardial damage. >= 1.50 ng/ml Indicative of Myocardial Injury. 10 NORMAL RANGES Age WBC RBC HGB HCT [...] HCT IS 5% LESS SOURCE FOR DATA: [place] 1800 OPERATION MANUAL( AUTOMATED BLOOD COUNTS AND [...] ADOLESCENTS REPRESENTS INDIVIDUALA AGED 2-19 YEARS EXCLUSIVE. 11 CKD-EPI 12 CKD-EPI Procedures Date Code Description Status 09/27/2021 96527 Office/Outpatient Established Mo d MDM 30-39 Min Completed 08/25/2021 02406 Office/Outpatient Established Mo d MDM 30-39 Min Completed 06/04/2021 73576 Office/Outpatient Established Mo d MDM 30-39 Min Completed 05/19/2021 74949 Office/Outpatient Established Mo d MDM 30-39 Min Completed Medical Devices Description No Information Available Encounters Type Date Location Provider Dx Diagnosis Office Visit 09/27/2021 1:45p [place] [facility] Bryce Joyce M. D. I67.9 Cerebrovascular disease, unspecified J44.9 Chronic obstructive pulmonar y disease, unspecified E11.9 Type 2 diabetes mellitus wit hout complications I48.91 Unspecified atrial fibrillat ion E78.5 Hyperlipidemia, unspecified Office Visit 08/25/2021 1:45p [place] [facility] Bryce Joyce M. D. I67.9 Cerebrovascular disease, unspecified J44.9 Chronic obstructive pulmonar y disease, unspecified Office Visit 06/04/2021 11:45a [place] [facility] Bryce Joyce M. D. J44.9 Chronic obstructive pulmonary disease, unspecified Office Visit 05/19/2021 1:30p [place] [facility] Bryce Joyce M. D. J44.9 Chronic [...] Bryce Joyce M.D. 09/27/2021 E78.5 [facility], [facility] 08/25/2021 I67.9 Cerebrovascular disease, [...] Bryce Joyce M.D. 05/19/2021 E78.5 Hyperlipidemia, unspecified [facility]ens[facility] M.[facility]. Plan of Treatment Future Appointment(s):* 12/28/2021 3:00 pm - Bryce Joyce M.D. at [facility] Functional Status Description No Information Available Mental Status Description No Information Available Referrals Description No Information Available
--- OUTSIDE RECORDS SUMMARY | 2021-10-18 10:43 | CCD | Continuity of Care Document ---
Author Author Mireya JOYCE M.D. Organization Unknown Address 3 [facility] [address] [place] [address] Phone [phone] Care Team Providers Care Mixing And Dispensing Supervisor Name Role Phone Ross Davidson M.D. AUTM [phone] Problems Active Problems Provider Date Chronic obstructive [...] 10/02/2013 Chocolate Unable to assess criticality 10/02/2013 [employer] [employer] Unable to assess criticality 10/02/2013 Medications [...] not drive or operate equipment while taking [id number] 90tabs Bryce Joyce M.D. 12/30/19 21 Albuterol Sulfate HFA 108(90Base) mcg/Act Aerosol Inhale Two Puffs By Mouth Every 4 To 6 Hours as Needed 18units Bryce Joyce M.D. 12/16/2020 Spiriva Respimat 1.25mcg/Act Aeros ol Inhale 2 Puffs By Mouth Once A Day 12units Tutu Joyce M.D. 04/17/2020 Prevnar 13 Suspension as directed 1dose Bryce Joyce M.D. 09/23/2019 Fluticasone Propionate 50mcg/Act Suspension [place] 2 Sprays Each Nostril Every Day as [...] to 4 LMP Bryce Joyce M.D. 10/02/2013 Albuterol Sulfate (2 .5mg/3ML) 0.083% Nebulizer Use 1 Vial Via Nebulizer Every 4 Hours as Needed 300units Bryce Joyce M.D. 10/02/2013 Ventolin HFA 108(90Base) mcg/Act A erosol inhale 2 puffs by mouth every 4 to 6 hours as needed 24gm Bryce Joyce M.D. 10/02/2013 Venlafaxine HCL ER 150mg Caps ER 2 4HR Take One Capsule By Mouth Every Day Maximum Daily Dose = 1 90caps Bryce Joyce M.D. 10/02/2013 Tears Naturale II Solution Unknown Budesonide 0.5mg/2ML Suspension use one vial in nebulizer once twice a day Ryan Davidson M.D. Eliquis 5mg Tablets one po bid (only taking 1 qd) Unknown Furosemide 40mg Tablets 1 by mouth every day Unknown Immunizations CPT Code Status Date Vaccine Lot # 10055 Given 08/26/2020 Influenza Virus Vaccine, Quadrivalent, Slit Virus, Im Use 3Y & Up [id number] 91924 Given 09/23/2019 Influenza Virus Vaccine, Quadrivalent, Slit Virus, Im Use 3Y & Up [id number] 51275 Given 08/13/2018 Influenza Virus Vaccine, Quadrivalent, Slit Virus, Im Use 3Y & Up [id number] 80111 Given 09/08/2017 Influenza Virus Vaccine, Quadrivalent, Slit Virus, Im Use 3Y & Up [id number] 54068 Given 10/18/2016 Influenza Virus Vaccine, Quadrivalent, Slit Virus, Im Use 3Y & Up [id number] 63904 Given 09/11/2015 Influenza Vaccin e (Fluzone) 3Yrs Of Age Or Older Medicare Plans [id number] 96794 Given 10/02/2013 Influenza Vaccin e (Fluzone) 3Yrs Of Age Or Older Medicare Plans 19767 Given 10/02/2013 Influenza Virus Vac. Split Virus Individuals 3 Years And Above [id number] Vital Signs Date Vital Result Comment 06/04/2021 12:00pm BP Systolic 124 mmHg BP Diastolic 64 mmHg Body Temperature 97.0 F Heart Rate 90 /min Respiratory Rate 18 /min O2 % BldC Oximetry 98 % 05/19/2021 1:43pm BP Systolic 138 mmHg BP Diastolic 76 mmHg Heart Rate 90 /min Respiratory Rate 16 /min Weight 142.00 lb Results Test Acquired Date Facility Test Result H/L Range Note Cardiac Marker Panel 05/31/2021 [facility]) [phone] CPK Creatine Phosphokinase 37 U/L Normal 26-19 2 CK-MB Value Mass 3.1 NG/ML Normal <3.6 MB/CK Relative Index 8.38 High < Or =4 1 Troponin I 0.11 NG/ML High < 0.10 2 PT & Aptt 05/31/2021 [facility]) [phone] Prothrombin Time 13.9 seconds Normal 12.5-14.3 Inr 1.05 Normal 3 Partial Thromboplastin Time 30.9 seconds Normal 24.2-38.5 Venous Blood Gas 05/31/2021 [facility]) [phone] Venous PH 7.341 units Normal 7.330-7.430 Venous Partial Pressure Co2 64.5 mmHg High 38.0-50.0 Venous Partial Pressure O2 40.2 mmHg Normal 30.0-50.0 Venous Total Co2 36.1 mEq/L High 24.0-28.0 Venous Hco3 34.1 mEq/L High 23.0-27.0 Venous Base Excess 6.5 High -2.0-2.0 Venous Standard Hco3 29.8 mEq/L Normal Venous O2 Saturation 72.6 % Normal 60.0-80.0 CBC With Differential 05/31/2021 [facility]) [phone] White Blood Count 15.7 10 High 4.0-10.0 [...] 36.0-66.0 Lymph % 12.6 % Low 24.0-44.0 Hale % 7.9 % Normal 2.0-8.0 Eos % 1.7 % Normal 0.0-3.0 Baso % 0.6 % Normal 0.0-1.0 Immature Granulocyte % 0.4 % Normal 0-3.0 Nucleated Red Blood Cell % 0.0 % Normal 0-0 Neutrophils # 12.0 10 High 1.5-8.5 Lymph # 2.0 10 Normal 1.5-5.0 Hale # 1.2 10 High 0.0-0.8 Eos # 0.3 10 Normal 0.0-0.5 Baso # 0.1 10 Normal 0.0-0.2 Cardiac Marker Panel 05/31/2021 [facility] ( Interface) [phone] CPK Creatine Phosphokinase 40 U/L Normal 26-19 2 CK-MB Value Mass 2.0 NG/ML Normal <3.6 MB/CK Relative Index 5.00 High < Or =4 4 Troponin I 0.13 NG/ML High < 0.10 5 Liver Profile 05/31/2021 [facility] (I nterface) [phone] Ast/Sgot 8 U/L Normal 7-37 Alt/SGPT 19 U/L Normal 12-78 Alkaline Phosphatase 55 U/L Normal 45-117 Bilirubin,Total 0.4 mg/dL Normal 0.2-1.0 Bilirubin,Direct 0.1 mg/dL Normal 0.0-0.2 Total Protein 6.2 GM/DL Low 6.4-8.2 Albumin 3.3 GM/DL Normal 3.2-5.2 Albumin/Globulin Ratio 1.1 Low 1.2-2.2 Basic Metabolic Profile 05/31/2021 [facility] (Interface) [phone] Glucose, Fasting 127 mg/dL High 70-100 Blood [...] 8-16 Calcium Level 9.1 mg/dL Normal 8.8-10.2 Laboratory test finding 05/31/2021 [facility] (Interface) [phone] NT-Pro BNP 1363 pg/mL High <450 Thyroid Stimulating Hormone 2.010 uIU/ML Normal 0.358-3.740 Respiratory Panel 05/31/2021 [facility] ([place] [facility]) [phone] Respiratory Panel This respiratory <SEE NOTE> 7 CMP 05/19/2021 [facility] Glu 328 mg/dL [...] eGFR 70 # Calc 9 eGFR Non-Afr. Stateless 61 # Calc 10 Lipid Panel 05/19/2021 [...] 9.0 - 13.0 Laboratory test finding 05/19/2021 [facility] Hemoglobin A1c 8.3 % High 4.50-6.20 1 DIAGNOSIS CRITERIA MMB ng/ml Relative Index (RI) NON-AMI < or = 5 N/A ALANIS ZONE > 5 < or = 4 AMI > 5 > 4 2 Troponin I Reference Interva l for [employer] LOCI: 99th Percentile= 0.00-0.045 ng/ml Risk Stratification: <= 0.10 ng/ml Decreased Risk for Adverse Clinical Events. 0.10-1.50 ng/ml Increased Risk for Adv erse Clinical Events. Evaluation of additional criterion and/or repeat testing in 2-6 hours is suggested to rule out myocardial damage. >= 1.50 ng/ml Indicative of Myocardial Injury. 3 THERAPUTIC HUMAN INR VALUES INDICATIONS NORMAL RANGES PROPHYLAXIS/TREATMENT OF: VENOUS THROMBOSIS 2.0-3.0 PULMONARY EMBOLISM 2.0-3.0 PREVENTION OF SYSTEMIC EMBOLISM FROM: TISSUE HEART VALVES 2.0-3.0 ACUTE MYOCARDIAL INFARCTION 2.0-3.0 VALVULAR HEART DISEASE 2.0-3.0 ATRIAL FIBRILLATION 2.0-3.0 MECHANICAL VALVES(HIGH RISK) 2.5-3.5 RECURRENT MYOCARDIAL INFARCTION 2.5-3.5 4 DIAGNOSIS CRITERIA MMB ng/ml Relative Index (RI) NON-AMI < or = 5 N/A ALANIS ZONE > 5 < or = 4 AMI > 5 > 4 5 Troponin I Reference Interva l for [employer] LOCI: 99th Percentile= 0.00-0.045 ng/ml Risk Stratification: <= 0.10 ng/ml Decreased Risk for Adverse Clinical Events. 0.10-1.50 ng/ml Increased Risk for Adv erse Clinical Events. Evaluation of additional criterion and/or repeat testing in 2-6 hours is suggested to rule out myocardial damage. >= 1.50 ng/ml Indicative of Myocardial Injury. 6 Units are mL/min/1.73 m2 Chronic Kidney Disease Staging per NKF: Stage I & II GFR >=60 Normal to Mildly Decreased Stage III GFR 30-59 Moderately Decreased Stage IV GFR 15-29 Severely Decreased Stage V GFR <15 Very Little GFR Left ESRD GFR <15 on [employer]PER[employer] 7 This respiratory PCR panel d etects Influenza A H1, H3 and 2009 H1 viruses, Influenza B virus, Resp iratory Syncytial Virus, Human metapneumovirus, Parainfluenza virus 1, 2, 3 and 4, Adenovirus, Rhinovirus/Enterovirus, Coronavirus HKU1, NL63, OC43, 229E and SARS-CoV-2 (COVID 19), Bordetella pertussis, Bordetella parapertussis, Mycoplasma pneumoniae and Chlamydia pneumoniae. NEGATIVE by MULTIPLEXED NUCLEIC ACID PCR SARS-CoV-2 (COVID 19) NEGATIVE - SARS-CoV-2 (COVID19) 8 NORMAL RANGES Age WBC RBC HGB [...] HCT IS 5% LESS SOURCE FOR DATA: [place] 1800 OPERATION MANUAL( AUTOMATED BLOOD COUNTS AND [...] 10 CKD-EPI Procedures Date Code Description Status 08/25/2021 05990 Office/Outpatient Established Mo d MDM 30-39 Min Completed 06/04/2021 81279 Office/Outpatient Established Mo d MDM 30-39 Min Completed 05/19/2021 19964 Office/Outpatient Established Mo d MDM 30-39 Min Completed Medical Devices Description No Information Available Encounters Type Date Location Provider Dx Diagnosis Office Visit 08/25/2021 1:45p [place] [facility] Bryce Joyce M. D. I67.9 Cerebrovascular disease, unspecified J44.9 Chronic obstructive pulmonar y disease, unspecified Office Visit 06/04/2021 11:45a [place] [facility] Bryce Joyce M. D. J44.9 Chronic obstructive pulmonary disease, unspecified Office Visit 05/19/2021 1:30p [facility] Bryce Joyce M. D. J44.9 Chronic obstructive pulmonary disease, unspecified E11.9 Type 2 diabetes mellitus wit hout complications I48.91 Unspecified atrial fibrillat ion E78.5 Hyperlipidemia, unspecified Assessments Date Code Description Provider 08/25/2021 I67.9 Cerebrovascular disease, unspeci fied Bryce Joyce M.D. 08/25/2021 J44.9 Chronic obstructive pulmonary di sease, unspecified Bryce Joyce M.D. 06/04/2021 J44.9 Chronic obstructive pulmonary di sease, unspecified Bryce Joyec M.D. 05/19/2021 J44.9 Chronic obstructive pulmonary di sease, unspecified Bryce oJyce M.D. 05/19/2021 E11.9 Type 2 diabetes mellitus without complications Bryce Joyce M.D. 05/19/2021 I48.91 Unspecified atrial fibrillation Bryce Joyce M.D. 05/19/2021 E78.5 [facility], [facility] Plan of Treatment No Information Available Functional Status Description No Information Available Mental Status Description No Information Available Referrals Description No Information Available"
--- OUTSIDE RECORDS SUMMARY | 2021-10-18 10:43 | CCD | Continuity of Care Document ---
Author Author Mireya JOYCE M.D. Organization Unknown Address 3 [facility] 3 [place] [address] Phone [phone] Care Team Providers Care Party Bus Driver Name Role Phone Ross Davidson M.D. AUTM [phone] Problems Active Problems Provider Date Chronic obstructive [...] 10/02/2013 Chocolate Unable to assess criticality 10/02/2013 Romanian Food Unable to assess criticality 10/02/2013 Medications [...] not drive or operate equipment while taking [id number] 90taBryce Rogers M.D. 12/30/19 21 Albuterol Sulfate HFA 108(90Base) mcg/Act Aerosol Inhale Two Puffs By Mouth Every 4 To 6 Hours as Needed 18units Bryce Joyce M.D. 12/16/2020 Spiriva Respimat 1.25mcg/Act Aeros ol Inhale 2 Puffs By Mouth Once A Day 12units Tutu Joyce M.D. 04/17/2020 Prevnar 13 Suspension as directed 1dose Bryce Joyce M.D. 09/23/2019 Fluticasone Propionate 50mcg/Act Suspension [place] 2 Sprays Each Nostril Every Day as [...] Tablets 1 by mouth every day Unknown Calcium Citrate 950(200CA) mg Tabl ets 1 p.o. qd Unknown Metoprolol Tartrate 25mg Tablets take 1/2 tablet by mouth twice a day Unknown Vitamin D (Ergocalciferol) 1.25mg (38180 Ut) Capsules 1 p.o. qd Unknown Immunizations CPT Code Status Date Vaccine Lot # [id number] Given 08/26/2020 Influenza Virus Vaccine, Quadrivalent, Slit Virus, Im Use 3Y & Up [id number] 06977 Given 09/23/2019 Influenza Virus Vaccine, Quadrivalent, Slit Virus, Im Use 3Y & Up [id number] 27481 Given 08/13/2018 Influenza Virus Vaccine, Quadrivalent, Slit Virus, Im Use 3Y & Up [id number] 52926 Given 09/08/2017 Influenza Virus Vaccine, Quadrivalent, Slit Virus, Im Use 3Y & Up [id number] 09355 Given 10/18/2016 Influenza Virus Vaccine, Quadrivalent, Slit Virus, Im Use 3Y & Up [id number] 72670 Given 09/11/2015 Influenza Vaccin e (Fluzone) 3Yrs Of Age Or Older Medicare Plans [id number] 02453 Given 10/02/2013 Influenza Vaccin e (Fluzone) 3Yrs Of Age Or Older Medicare Plans 63607 Given 10/02/2013 Influenza Virus Vac. Split Virus Individuals 3 Years And Above [id number] Vital Signs Date Vital Result Comment 08/25/2021 3:58pm BP Systolic 122 mmHg BP Diastolic 62 mmHg Body Temperature 98.5 F Heart Rate 67 /min Respiratory Rate 18 /min Weight 134.00 lb O2 % BldC Oximetry 97 % 06/04/2021 12:00pm BP Systolic 124 mmHg BP Diastolic 64 mmHg Body Temperature 97.0 F Heart Rate 90 /min Respiratory Rate 18 /min O2 % BldC Oximetry 98 % Results Test Acquired Date Facility Test Result H/L Range Note Cardiac Marker Panel 05/31/2021 [facility]) [phone] CPK Creatine Phosphokinase 37 U/L Normal 26-19 2 CK-MB Value Mass 3.1 NG/ML Normal <3.6 MB/CK Relative Index 8.38 High < Or =4 1 Troponin I 0.11 NG/ML High < 0.10 2 PT & Aptt 05/31/2021 [facility]) [phone] Prothrombin Time 13.9 seconds Normal 12.5-14.3 Inr 1.05 Normal 3 Partial Thromboplastin Time 30.9 seconds Normal 24.2-38.5 Venous Blood Gas 05/31/2021 [facility]) [phone] Venous PH 7.341 units Normal 7.330-7.430 Venous Partial Pressure Co2 64.5 mmHg High 38.0-50.0 Venous Partial Pressure O2 40.2 mmHg Normal 30.0-50.0 Venous Total Co2 36.1 mEq/L High 24.0-28.0 Venous Hco3 34.1 mEq/L High 23.0-27.0 Venous Base Excess 6.5 High -2.0-2.0 Venous Standard Hco3 29.8 mEq/L Normal Venous O2 Saturation 72.6 % Normal 60.0-80.0 CBC With Differential 05/31/2021 [facility]) [phone] White Blood Count 15.7 10 High 4.0-10.0 [...] 36.0-66.0 Lymph % 12.6 % Low 24.0-44.0 [place] % 7.9 % Normal 2.0-8.0 Eos % 1.7 % Normal 0.0-3.0 Baso % 0.6 % Normal 0.0-1.0 Immature Granulocyte % 0.4 % Normal 0-3.0 Nucleated Red Blood Cell % 0.0 % Normal 0-0 Neutrophils # 12.0 10 High 1.5-8.5 Lymph # 2.0 10 Normal 1.5-5.0 [place] # 1.2 10 High 0.0-0.8 Eos # 0.3 10 Normal 0.0-0.5 Baso # 0.1 10 Normal 0.0-0.2 Cardiac Marker Panel 05/31/2021 [facility] ( Interface) [phone] CPK Creatine Phosphokinase 40 U/L Normal 26-19 2 CK-MB Value Mass 2.0 NG/ML Normal <3.6 MB/CK Relative Index 5.00 High < Or =4 4 Troponin I 0.13 NG/ML High < 0.10 5 Liver Profile 05/31/2021 [facility] (I nterface) [phone] Ast/Sgot 8 U/L Normal 7-37 Alt/SGPT 19 U/L Normal 12-78 Alkaline Phosphatase 55 U/L Normal 45-117 Bilirubin,Total 0.4 mg/dL Normal 0.2-1.0 Bilirubin,Direct 0.1 mg/dL Normal 0.0-0.2 Total Protein 6.2 GM/DL Low 6.4-8.2 Albumin 3.3 GM/DL Normal 3.2-5.2 Albumin/Globulin Ratio 1.1 Low 1.2-2.2 Basic Metabolic Profile 05/31/2021 [facility] (Interface) [phone] Glucose, Fasting 127 mg/dL High 70-100 Blood [...] mg/dL Normal 8.8-10.2 Laboratory test finding 05/31/2021 [facility] (Interface) [phone] NT-Pro BNP 1363 pg/mL High <450 Thyroid Stimulating Hormone 2.010 uIU/ML Normal 0.358-3.740 Respiratory Panel 05/31/2021 [facility] (I nterface) [phone] Respiratory Panel This respiratory <SEE NOTE> 7 [...] eGFR 70 # Calc 9 eGFR Non-Afr. Uruguayan 61 # Calc 10 Lipid Panel 05/19/2021 [...] 9.0 - 13.0 Laboratory test finding 05/19/2021 [facility] Hemoglobin A1c 8.3 % High 4.50-6.20 1 DIAGNOSIS CRITERIA MMB ng/ml Relative Index (RI) NON-AMI < or = 5 N/A ALANIS ZONE > 5 < or = 4 AMI > 5 > 4 2 Troponin I Reference Interva l for SlideMail: 99th Percentile= 0.00-0.045 ng/ml Risk Stratification: <= [...] 5 Troponin I Reference Interva l for SlideMail: 99th Percentile= 0.00-0.045 ng/ml Risk Stratification: <= [...] Little GFR Left ESRD GFR <15 on SPOOL WORKER 7 This respiratory PCR panel d etects [...] HCT IS 5% LESS SOURCE FOR DATA: [employer] 1800 OPERATION MANUAL( AUTOMATED BLOOD COUNTS AND [...] CKD-EPI Procedures Date Code Description Status 08/25/2021 71173 Office/Outpatient Established Mo d MDM 30-39 Min Completed 06/04/2021 07920 Office/Outpatient Established Mo d MDM 30-39 Min Completed 05/19/2021 82115 Office/Outpatient Established Mo d MDM 30-39 Min Completed Medical Devices Description No Information Available Encounters Type Date Location Provider Dx Diagnosis Office Visit 08/25/2021 1:45p [facility] Bryce Joyce M. D. I67.9 Cerebrovascular disease, unspecified J44.9 Chronic obstructive pulmonar y disease, unspecified Office Visit 06/04/2021 11:45a [facility] Bryce Joyce M. D. J44.9 Chronic obstructive pulmonary disease, unspecified Office Visit 05/19/2021 1:30p [facility] Bryce Joyce M. D. J44.9 Chronic [...] Bryce Joyce M.D. 05/19/2021 E78.5 [facility], [facility] Plan of Treatment Future Appointment(s):* 09/27/2021 1:45 pm - Bryce Joyce M.D. at [facility] Functional Status Description No Information Available Mental Status Description No Information Available Referrals Description No Information Available"
--- OUTSIDE RECORDS SUMMARY | 2021-10-18 10:43 | CCD | Continuity of Care Document ---
Author Author Mireya JOYCE M.D. Organization Unknown Address 3 [facility] 3 [place] [address] Phone [phone] Care Team Providers Care Heel Packer Name Role Phone Ross Davidson M.D. AUTM [phone] Problems Active Problems Provider Date Chronic obstructive [...] 10/02/2013 Chocolate Unable to assess criticality 10/02/2013 Bengali Food Unable to assess criticality 10/02/2013 Medications [...] not drive or operate equipment while taking [id number] 90taBryce Rogers M.D. 12/30/19 21 Albuterol Sulfate HFA 108(90Base) mcg/Act Aerosol Inhale Two Puffs By Mouth Every 4 To 6 Hours as Needed 18units Bryce Joyce M.D. 12/16/2020 Spiriva Respimat 1.25mcg/Act Aeros ol Inhale 2 Puffs By Mouth Once A Day 12units Tutu Joyce M.D. 04/17/2020 Prevnar 13 Suspension as directed 1dose Bryce Joyce M.D. 09/23/2019 Fluticasone Propionate 50mcg/Act Suspension [place] 2 Sprays Each Nostril Every Day as [...] Rogers M .D. Vitamin D (Ergocalciferol) 1.25mg (51370 Ut) Capsules 1 p.o. qd Unknown Immunizations CPT Code Status Date Vaccine Lot # 52729 Given 08/26/2020 Influenza Virus Vaccine, Quadrivalent, Slit Virus, Im Use 3Y & Up [id number] 85174 Given 09/23/2019 Influenza Virus Vaccine, Quadrivalent, Slit Virus, Im Use 3Y & Up [id number] 56729 Given 08/13/2018 Influenza Virus Vaccine, Quadrivalent, Slit Virus, Im Use 3Y & Up [id number] 55908 Given 09/08/2017 Influenza Virus Vaccine, Quadrivalent, Slit Virus, Im Use 3Y & Up [id number] 03815 Given 10/18/2016 Influenza Virus Vaccine, Quadrivalent, Slit Virus, Im Use 3Y & Up [id number] 28191 Given 09/11/2015 Influenza Vaccin e (Fluzone) 3Yrs Of Age Or Older Medicare Plans [id number] 30841 Given 10/02/2013 Influenza Vaccin e (Fluzone) 3Yrs Of Age Or Older Medicare Plans 11738 Given 10/02/2013 Influenza Virus Vac. Split Virus Individuals 3 Years And Above [id number] Vital Signs Date Vital Result Comment 09/27/2021 2:07pm BP Systolic 122 mmHg BP Diastolic 54 mmHg Body Temperature 98.1 F Heart Rate 80 /min Respiratory Rate 16 /min Height 62 inches 5'2" [place] Body Weight 110 lb O2 % BldC Oximetry 98 % (On O2 @ 1.5 LPM NC ) 08/25/2021 3:58pm BP Systolic 122 mmHg BP Diastolic 62 mmHg Body Temperature 98.5 F Heart Rate 67 /min Respiratory Rate 18 /min Weight 134.00 lb O2 % BldC Oximetry 97 % Results Test Acquired Date Facility Test Result H/L Range Note Cardiac Marker Panel 05/31/2021 [facility] ( Interface) [phone] CPK Creatine Phosphokinase 37 U/L Normal 26-19 2 CK-MB Value Mass 3.1 NG/ML Normal <3.6 MB/CK Relative Index 8.38 High < Or =4 1 Troponin I 0.11 NG/ML High < 0.10 2 PT & Aptt 05/31/2021 [facility]) [phone] Prothrombin Time 13.9 seconds Normal 12.5-14.3 Inr 1.05 Normal 3 Partial Thromboplastin Time 30.9 seconds Normal 24.2-38.5 Venous Blood Gas 05/31/2021 [facility]) [phone] Venous PH 7.341 units Normal 7.330-7.430 Venous Partial Pressure Co2 64.5 mmHg High 38.0-50.0 Venous Partial Pressure O2 40.2 mmHg Normal 30.0-50.0 Venous Total Co2 36.1 mEq/L High 24.0-28.0 Venous Hco3 34.1 mEq/L High 23.0-27.0 Venous Base Excess 6.5 High -2.0-2.0 Venous Standard Hco3 29.8 mEq/L Normal Venous O2 Saturation 72.6 % Normal 60.0-80.0 CBC With Differential 05/31/2021 [facility] (Interface) [phone] White Blood Count 15.7 10 High 4.0-10.0 [...] 36.0-66.0 Lymph % 12.6 % Low 24.0-44.0 Gray % 7.9 % Normal 2.0-8.0 Eos % 1.7 % Normal 0.0-3.0 Baso % 0.6 % Normal 0.0-1.0 Immature Granulocyte % 0.4 % Normal 0-3.0 Nucleated Red Blood Cell % 0.0 % Normal 0-0 Neutrophils # 12.0 10 High 1.5-8.5 Lymph # 2.0 10 Normal 1.5-5.0 Gray # 1.2 10 High 0.0-0.8 Eos # 0.3 10 Normal 0.0-0.5 Baso # 0.1 10 Normal 0.0-0.2 Cardiac Marker Panel 05/31/2021 [facility] ( Interface) [phone] CPK Creatine Phosphokinase 40 U/L Normal 26-19 2 CK-MB Value Mass 2.0 NG/ML Normal <3.6 MB/CK Relative Index 5.00 High < Or =4 4 Troponin I 0.13 NG/ML High < 0.10 5 Liver Profile 05/31/2021 [facility] (I nterfa) [phone] Ast/Sgot 8 U/L Normal 7-37 Alt/SGPT 19 U/L Normal 12-78 Alkaline Phosphatase 55 U/L Normal 45-117 Bilirubin,Total 0.4 mg/dL Normal 0.2-1.0 Bilirubin,Direct 0.1 mg/dL Normal 0.0-0.2 Total Protein 6.2 GM/DL Low 6.4-8.2 Albumin 3.3 GM/DL Normal 3.2-5.2 Albumin/Globulin Ratio 1.1 Low 1.2-2.2 Basic Metabolic Profile 05/31/2021 [facility] (Interface) [phone] Glucose, Fasting 127 mg/dL High 70-100 Blood [...] mg/dL Normal 8.8-10.2 Laboratory test finding 05/31/2021 [facility] (Interface) [phone] NT-Pro BNP 1363 pg/mL High <450 Thyroid Stimulating Hormone 2.010 uIU/ML Normal 0.358-3.740 Respiratory Panel 05/31/2021 [facility] (I nterface) [phone] Respiratory Panel This respiratory <SEE NOTE> 7 [...] eGFR 70 # Calc 9 eGFR Non-Afr. Angolan 61 # Calc 10 Lipid Panel 05/19/2021 [...] 9.0 - 13.0 Laboratory test finding 05/19/2021 [facility] Hemoglobin A1c 8.3 % High 4.50-6.20 1 DIAGNOSIS CRITERIA MMB ng/ml Relative Index (RI) NON-AMI < or = 5 N/A ALANIS ZONE > 5 < or = 4 AMI > 5 > 4 2 Troponin I Reference Interva l for Siemens [id number] LOCI: 99th Percentile= 0.00-0.045 ng/ml Risk Stratification: [...] 5 Troponin I Reference Interva l for Siemens dev9k LOCI: 99th Percentile= 0.00-0.045 ng/ml Risk Stratification: [...] Little GFR Left ESRD GFR <15 on [employer] EVIDENCE TECHNICIAN 7 This respiratory PCR panel d etects [...] HCT IS 5% LESS SOURCE FOR DATA: [employer] 1800 OPERATION MANUAL( AUTOMATED BLOOD COUNTS AND [...] CKD-EPI Procedures Date Code Description Status 09/27/2021 28423 Office/Outpatient Established Mo d MDM 30-39 Min Completed 08/25/2021 60034 Office/Outpatient Established Mo d MDM 30-39 Min Completed 06/04/2021 30996 Office/Outpatient Established Mo d MDM 30-39 Min Completed 05/19/2021 28817 Office/Outpatient Established Mo d MDM 30-39 Min Completed Medical Devices Description No Information Available Encounters Type Date Location Provider Dx Diagnosis Office Visit 09/27/2021 1:45p [place] [facility] Bryce Joyce M. D. 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 D. I67.9 Cerebrovascular disease, unspecified J44.9 Chronic obstructive pulmonar y disease, unspecified Office Visit 06/04/2021 11:45a [place] [facility] Bryce Joyce M. D. J44.9 Chronic obstructive pulmonary disease, unspecified Office Visit 05/19/2021 1:30p [place] [facility] Bryce Joyce M. D. J44.9 Chronic [...] Bryce Joyce M.D. 09/27/2021 E78.5 [facility], [facility] 08/25/2021 I67.9 Cerebrovascular disease, unspeci fied [...] Bryce Joyce M.D. 05/19/2021 E78.5 Hyperlipidemia, [facility] Plan of Treatment No Information Available Functional Status Description No Information Available Mental Status Description No Information Available Referrals Description No Information Available
--- OUTSIDE RECORDS SUMMARY | 2021-10-18 10:45 | CCD ---
Author Author [facility] Organization [facility] Address Unknown Phone Unavailable Care Team Providers Care Vertical Roll Operator Name Role Phone SANGITA PHILLIPS Unavailable Unavailable Kurtis Nuñez MD Unavailable Unavailable Kurtis Nuñez MD Unavailable Unavailable Kurtis Nuñez MD Unavailable Unavailable Kurtis Nuñez MD Unavailable Unavailable Kurtis Nuñez MD Unavailable Unavailable Kurtis Nuñez MD Unavailable Unavailable Kurtis Nuñez MD Unavailable Unavailable Kurtis Nuñez MD Unavailable Unavailable Kurtis Nuñez MD Unavailable Unavailable Kurtis Nuñez MD Unavailable Unavailable Kurtis Nuñez MD Unavailable Unavailable Kurtis Nuñez MD Unavailable Unavailable Kurtis Nuñez MD Unavailable Unavailable Kurtis Nuñez MD Unavailable Unavailable Kurtis Nuñez MD Unavailable Unavailable Kurtis Nuñez MD Unavailable Unavailable Kurtis Nuñez MD Unavailable Unavailable Kurtis Nuñez MD Unavailable Unavailable Kurtis Nuñez MD Unavailable Unavailable Kurtis Nuñez MD Unavailable Unavailable Kurtis Nuñez MD Unavailable Unavailable Kurtis Nuñez MD Unavailable Unavailable Kurtis Nuñez MD Unavailable Unavailable Kurtis Nuñez MD Unavailable Unavailable Kurtis Nuñez MD Unavailable Unavailable Kurtis Nuñez MD Unavailable Unavailable Kurtis Nuñez MD Unavailable Unavailable Kurtis Nuñez MD Unavailable Unavailable Kurtis Nuñez MD Unavailable Unavailable Kurtis Nuñez MD Unavailable Unavailable MadisonKurtis MD Unavailable Unavailable OUEIDA, ZAHER Unavailable Unavailable OUEIDA, ZAHER Unavailable Unavailable OUEIDA, ZAHER Unavailable Unavailable OUEIDA, ZAHER Unavailable Unavailable OUEIDA, ZAHER Unavailable Unavailable OUEIDA, ZAHER Unavailable Unavailable Rigoberto SALAS MD Unavailable Unavailable Rigoberto SALAS MD Unavailable Unavailable Rigoberto SALAS MD Unavailable Unavailable Rigoberto SALAS MD Unavailable Unavailable Rigoberto SALAS MD Unavailable Unavailable Rigoberto SALAS MD Unavailable Unavailable Rigoberto SALAS MD Unavailable Unavailable Rigoberto SALAS MD Unavailable Unavailable Rigoberto SALAS MD Unavailable Unavailable Rigoberto SALAS MD Unavailable Unavailable Rigoberto SALAS MD Unavailable Unavailable Rigoberto SALAS MD Unavailable Unavailable Rigoberto SALAS MD Unavailable Unavailable Rigoberto SALAS MD Unavailable Unavailable Rigoberto SALAS MD Unavailable Unavailable Rigoberto SALAS MD Unavailable Unavailable Rigoberto SALAS MD Unavailable Unavailable Rigoberto SALAS MD Unavailable Unavailable Rigoberto SALAS MD Unavailable Unavailable Rigoberto SALAS MD Unavailable Unavailable Rigoberto SALAS MD Unavailable Unavailable Rigoberto SALAS MD Unavailable Unavailable Rigoberto SALAS MD Unavailable Unavailable Rigoberto SALAS MD Unavailable Unavailable Rigoberto SALAS MD Unavailable Unavailable Rigoberto SALAS MD Unavailable Unavailable Rigoberto SALAS MD Unavailable Unavailable Rigoberto SALAS MD Unavailable Unavailable Rigoberto SALAS MD Unavailable Unavailable Rigoberto SALAS MD Unavailable Unavailable Rigoberto SALAS MD Unavailable Unavailable Rigoberto SALAS MD Unavailable Unavailable Rigoberto SALAS MD Unavailable Unavailable Rigoberto SALAS MD Unavailable Unavailable Rigoberto SALAS MD Unavailable Unavailable Rigoberto SALAS MD Unavailable Unavailable Rigoberto SALAS MD Unavailable Unavailable Rigoberto SALAS MD Unavailable Unavailable Rigoberto SALAS MD Unavailable Unavailable Rigoberto SALAS MD Unavailable Unavailable Rigoberto SALAS MD Unavailable Unavailable Rigoberto SALAS MD Unavailable Unavailable Rigoberto SALAS MD Unavailable Unavailable Rigoberto SALAS MD Unavailable Unavailable Rigoberto SALAS MD Unavailable Unavailable Rigoberto SALAS MD Unavailable Unavailable Rigoberto SALAS MD Unavailable Unavailable Rigoberto SALAS MD Unavailable Unavailable Rigoberto SALAS MD Unavailable Unavailable Rigoberto SALAS MD Unavailable Unavailable Rigoberto SALAS MD Unavailable Unavailable Rigoberto SALAS MD Unavailable Unavailable Rigoberto SALAS MD Unavailable Unavailable Rigoberto SALAS MD Unavailable Unavailable Rigoberto SALAS MD Unavailable Unavailable Rigoberto SALAS MD Unavailable Unavailable Rigoberto SALAS MD Unavailable Unavailable Rigoberto SALAS MD Unavailable Unavailable Rigoberto SALAS MD Unavailable Unavailable Rigoberto SALAS MD Unavailable Unavailable Rigoberto SALAS MD Unavailable Unavailable Rigoberto SALAS MD Unavailable Unavailable Rigoberto SALAS MD Unavailable Unavailable Rigoberto SALAS MD Unavailable Unavailable Rigoberto SALAS MD Unavailable Unavailable Rigoberto SALAS MD Unavailable Unavailable Rigoberto SALAS MD Unavailable Unavailable Rigoberto SALAS MD Unavailable Unavailable Rigoberto SALAS MD Unavailable Unavailable Rigoberto SALAS MD Unavailable Unavailable Rigoberto SALAS MD Unavailable Unavailable Rigoberto SALAS MD Unavailable Unavailable Rigoberto SALAS MD Unavailable Unavailable Rigoberto SALAS MD Unavailable Unavailable Rigoberto SALAS MD Unavailable Unavailable Rigoberto SALAS MD Unavailable Unavailable Rigoberto SALAS MD Unavailable Unavailable Rigoberto SALAS MD Unavailable Unavailable Purlear, V ANKUSH PA-C Unavailable Unavailable Sukumar, V ANKUSH PA-C Unavailable Unavailable Purlear, V ANKUSH PA-C Unavailable Unavailable Sukumar, V ANKUSH PA-C Unavailable Unavailable Purlear, V ANKUSH PA-C Unavailable Unavailable Purlear, V ANKUSH PA-C Unavailable Unavailable Purlear, V ANKUSH PA-C Unavailable Unavailable Purlear, V ANKUSH PA-C Unavailable Unavailable Purlear, V ANKUSH PA-C Unavailable Unavailable Purlear, V ANKUSH PA-C Unavailable Unavailable Purlear, V ANKUSH PA-C Unavailable Unavailable Purlear, V ANKUSH PA-C Unavailable Unavailable Purlear, V ANKUSH PA-C Unavailable Unavailable Purlear, V ANKUSH PA-C Unavailable Unavailable ROSETTA MCINTOSH MD Unavailable Unavailable ROSETTA MCINTOSH MD Unavailable Unavailable Isaias Davidson MD Unavailable Unavailable Isaias Davidson MD Unavailable Unavailable Isaias Davidson MD Unavailable Unavailable Isaias Davidson MD Unavailable Unavailable Isaias Davidson MD Unavailable Unavailable Isaias Davidson MD Unavailable Unavailable Isaias Davidson MD Unavailable Unavailable Isaias Davidson MD Unavailable Unavailable Isaias Davidson MD Unavailable Unavailable Isaias Davidson MD Unavailable Unavailable Isaias Davidson MD Unavailable Unavailable Isaias Davidson MD Unavailable Unavailable Isaias Davidson MD Unavailable Unavailable Isaias Davidson MD Unavailable Unavailable Isaias Davidson MD Unavailable Unavailable Isaias Davidson MD Unavailable Unavailable Isaias Davidson MD Unavailable Unavailable Isaias Davidson MD Unavailable Unavailable Isaias Davidson MD Unavailable Unavailable Isaias Davidson MD Unavailable Unavailable Isaias Davidson MD Unavailable Unavailable Isaias Davidson MD Unavailable Unavailable Isaias Davidson MD Unavailable Unavailable Isaias Davidson MD Unavailable Unavailable Isaias Davidson MD Unavailable Unavailable Isaias Davidson MD Unavailable Unavailable Isaias Davidson MD Unavailable Unavailable Isaias Davidson MD Unavailable Unavailable Isaias Davidson MD Unavailable Unavailable Isaias Davidson MD Unavailable Unavailable Isaias Davidson MD Unavailable Unavailable Isaias Davidson MD Unavailable Unavailable Isaias Davidson MD Unavailable Unavailable Isaias Davidson MD Unavailable Unavailable Davidson, Isaias Hawkins MD Unavailable Unavailable Davidson, Isaias Hawkins MD Unavailable Unavailable Davidson, Isaias Hawkins MD Unavailable Unavailable Davidson, Isaias Hawkins MD Unavailable Unavailable Davidson, Isaias Hawkins MD Unavailable Unavailable Davidson, Isaias Hawkins MD Unavailable Unavailable Davidson, Isaias Hawkins MD Unavailable Unavailable Davidson, Isaias Hawkins MD Unavailable Unavailable Davidson, Isaias Hawkins MD Unavailable Unavailable Davidson, Isaias Hawkins MD Unavailable Unavailable Davidson, Isaias Hawkins MD Unavailable Unavailable Davidson, Isaias Hawkins MD Unavailable Unavailable Davidson, Isaias Hawkins MD Unavailable Unavailable Davidson, Isaias Hawkins MD Unavailable Unavailable Davidson, Isaias Hawkins MD Unavailable Unavailable Davidson, Isaias Hawkins MD Unavailable Unavailable Davidson, Isaias Hawkins MD Unavailable Unavailable Davidson, Isaias Hawkins MD Unavailable Unavailable Davidson, Isaias Hawkins MD Unavailable Unavailable Davidson, Isaias Hawkins MD Unavailable Unavailable Loveless, A Sally ROADS SUPERINTENDENT Unavailable Unavailable Loveless, A Sally ROADS SUPERINTENDENT Unavailable Unavailable Loveless, A Sally ROADS SUPERINTENDENT Unavailable Unavailable Loveless, A Sally ROADS SUPERINTENDENT Unavailable Unavailable Loveless, A Sally ROADS SUPERINTENDENT Unavailable Unavailable Loveless, A Sally ROADS SUPERINTENDENT Unavailable Unavailable Loveless, A Sally ROADS SUPERINTENDENT Unavailable Unavailable Loveless, A Sally ROADS SUPERINTENDENT Unavailable Unavailable Loveless, A Sally ROADS SUPERINTENDENT Unavailable Unavailable Loveless, A Sally ROADS SUPERINTENDENT Unavailable Unavailable Loveless, A Sally ROADS SUPERINTENDENT Unavailable Unavailable Loveless, A Sally ROADS SUPERINTENDENT Unavailable Unavailable Loveless, A Sally ROADS SUPERINTENDENT Unavailable Unavailable Loveless, A Sally ROADS SUPERINTENDENT Unavailable Unavailable Loveless, A Sally ROADS SUPERINTENDENT Unavailable Unavailable Loveless, A Sally ROADS SUPERINTENDENT Unavailable Unavailable Loveless, A Sally ROADS SUPERINTENDENT Unavailable Unavailable Loveless, A Sally ROADS SUPERINTENDENT Unavailable Unavailable Loveless, A Sally ROADS SUPERINTENDENT Unavailable Unavailable Loveless, A Sally ROADS SUPERINTENDENT Unavailable Unavailable Loveless, A Sally ROADS SUPERINTENDENT Unavailable Unavailable Loveless, A Sally ROADS SUPERINTENDENT Unavailable Unavailable Loveless, A Sally ROADS SUPERINTENDENT Unavailable Unavailable Loveless, A Sally ROADS SUPERINTENDENT Unavailable Unavailable Loveless, A Sally ROADS SUPERINTENDENT Unavailable Unavailable Loveless, A Sally ROADS SUPERINTENDENT Unavailable Unavailable Loveless, A Sally ROADS SUPERINTENDENT Unavailable Unavailable Loveless, A Sally ROADS SUPERINTENDENT Unavailable Unavailable Loveless, A Sally ROADS SUPERINTENDENT Unavailable Unavailable Loveless, A Sally ROADS SUPERINTENDENT Unavailable Unavailable Loveless, A Sally ROADS SUPERINTENDENT Unavailable Unavailable Gurwinder COOPER . Unavailable Unavailable Leigh Ramos MD Unavailable Unavailable Leigh Ramos MD Unavailable Unavailable Leigh Ramos MD Unavailable Unavailable Leigh Ramos MD Unavailable Unavailable Leigh Ramos MD Unavailable Unavailable Leigh Ramos MD Unavailable Unavailable Leigh Ramos MD Unavailable Unavailable Leigh Ramos MD Unavailable Unavailable Leigh Ramos MD Unavailable Unavailable Leigh Ramos MD Unavailable Unavailable Leigh Ramos MD Unavailable Unavailable Leigh Ramos MD Unavailable Unavailable Leigh Ramos MD Unavailable Unavailable Leigh Ramos MD Unavailable Unavailable Leigh Ramos MD Unavailable Unavailable Leigh Ramos MD Unavailable Unavailable Leigh Ramos MD Unavailable Unavailable Leigh Ramos MD Unavailable Unavailable Leigh Ramos MD Unavailable Unavailable Leigh Ramos MD Unavailable Unavailable Leigh Ramos MD Unavailable Unavailable Leigh Ramos MD Unavailable Unavailable Leigh Ramos MD Unavailable Unavailable Leigh Ramos MD Unavailable Unavailable Leigh Ramos MD Unavailable Unavailable Leigh Ramos MD Unavailable Unavailable Leigh Ramos MD Unavailable Unavailable Leigh Ramos MD Unavailable Unavailable Leigh Ramos MD Unavailable Unavailable Leigh Ramos MD Unavailable Unavailable Leigh Ramos MD Unavailable Unavailable Leigh Ramos MD Unavailable Unavailable Leigh Ramos MD Unavailable Unavailable Leigh Ramos MD Unavailable Unavailable Leigh Ramos MD Unavailable Unavailable Leigh Ramos MD Unavailable Unavailable Leigh Ramos MD Unavailable Unavailable Leigh Ramos MD Unavailable Unavailable Leigh Ramos MD Unavailable Unavailable Leigh Ramos MD Unavailable Unavailable Leigh Ramos MD Unavailable Unavailable Leigh Ramos MD Unavailable Unavailable Leigh Ramos MD Unavailable Unavailable Leigh Ramos MD Unavailable Unavailable Leigh Ramos MD Unavailable Unavailable Leigh Ramos MD Unavailable Unavailable Leigh Ramos MD Unavailable Unavailable Leigh Ramos MD Unavailable Unavailable Leigh Ramos MD Unavailable Unavailable Leigh Ramos MD Unavailable Unavailable Leigh Ramos MD Unavailable Unavailable Leigh Ramos MD Unavailable Unavailable Leigh Ramos MD Unavailable Unavailable Leigh Ramos MD Unavailable Unavailable Leigh Ramos MD Unavailable Unavailable Leigh Ramos MD Unavailable Unavailable Leigh Ramos MD Unavailable Unavailable Leigh Ramos MD Unavailable Unavailable Leigh Ramos MD Unavailable Unavailable Re-disclosure Warning The records that you are about to access may contain information from federally-assisted alcohol or drug abuse programs. If such information is present, then the following federally mandated warning applies: This information has been disclosed to you from records protected by federal confidentiality rules (42 CFR part 2). The federal rules prohibit you from making any further disclosure of this information unless further disclosure is expressly permitted by the written consent of the person to whom it pertains or as otherwise permitted by 42 CFR part 2. A general authorization for the release of medical or other information is NOT sufficient for this purpose. The Federal rules restrict any use of the information to criminally investigate or prosecute any alcohol or drug abuse patient.The records that you are about to access may contain highly sensitive health information, the redisclosure of which is protected by Article 27-F of the [facility] Public Health law. If you continue you may have access to information: Regarding HIV / AIDS; Provided by facilities licensed or operated by the [facility] Office of Mental Health; or Provided by the [facility] Office for People With Developmental Disabilities. If such information is present, then the following [facility] mandated warning applies: This information has been disclosed to you from confidential records which are protected by state law. State law prohibits you from making any further disclosure of this information without the specific written consent of the person to whom it pertains, or as otherwise permitted by law. Any unauthorized further disclosure in violation of state law may result in a fine or longterm sentence or both. A general authorization for the release of medical or other information is NOT sufficient authorization for further disc losure. Allergies and Adverse Reactions Type Description Substance Reaction Status Data Source(s ) Propensity to adverse reactions NO KNOWN ALLERGIES NO KNOWN ALLERGIES [facility] Drug allergy AMOXICILLIN-POT CLAVULANATE AMOXICILLIN-POT CLAVULANATE [facility] Propensity to adverse reactions CLARITHROMYCIN Clarithromycin [facility] Drug allergy PSEUDOEPHEDRINE HCL PSEUDOEPHEDRINE HCL [facility] Propensity to adverse reactions PSEUDOEPHEDRINE Pseudoephedrine [facility] Propensity to adverse reactions PSEUDOEPHEDRINE HCL Pseudoephedrine Hcl Active [facility] Propensity to adverse reactions OTHER Other Acti ve [facility] Propensity to adverse reactions CLARITHROMYCIN Clarithromycin Active [facility] Propensity to adverse reactions AMOXICILLIN-POT CLAVULANATE Amoxicillin-Pot Clavulanate Active [facility] Family History Family Member Name Family Member Gender Family Member Status Date o f Status Description Data Source(s) Unknown Unknown Problem [facility] ([facility] ) Unknown Male Problem [facility] ([facility] () Encounters Encounter Providers Location Date Indications Data Source(s ) Outpatient Attender: Sally Scott NP 12/01/2021 12:0 0:00 AM [facility] Outpatient Attender: Ross Martinez/Joaquin/Monty/Shabbir monzon 09/29/2021 12:45:00 PM EST [facility] ([facility], ) Outpatient Attender: CANDIDO Carballo Office 06/2021 12:45:00 PM EST [facility] ([facility] Outpatient Attender: CANDIDO Carballo Office 04/2021 01:45:00 PM EDT [facility] ([facility] Inpatient Attender: TEDDY Hyman er: IVANA CHONG .Attender: STACEY PARKSAttender: ROSETTA MCINTOSH MDAdmitter: ROSETTA MCINTOSH MDReferrer: TEDDY PHILLIPSConsultant: STACEY PARKS [id number] 08/09/2021 12:00:00 AM E DT - 08/17/2021 02:22:00 PM [facility] Patient discharged. Outpatient Attender: Ross Martinez/Joaquin/Monty/Shabbir monzon 06/14/2021 02:45:00 PM EDT [facility] ([facility], ) Outpatient Attender: CANDIDO Carballo Office 11:45:00 AM EDT [facility] Outpatient Attender: CANDIDO Carballo Office 01:30:00 PM EDT [facility] ([facility] Outpatient Attender: ANKUSH ROCKSJCeciliaKELLI 12:00:00 AM EDT - 05/18/2021 02:28:16 PM EDT [facility] Outpatient Attender: Kurtis Martinez/Joaquin/Monty/Reind l 03/23/2021 02:10:00 PM EDT [facility] ([facility] Outpatient Attender: Ross Martinez/Joaquin/Monty/R eindl 03/01/2021 03:15:00 PM EDT [facility] ([facility] Outpatient Attender: Kurtis Martinez/Joaquin/Monty/Reind l 02/26/2021 11:10:00 AM EDT [facility] ([facility] Outpatient Attender: CANDIDO Carballo Office 01:30:00 PM EDT [facility] ([facility] Outpatient Attender: ANKUSH CHAN-SJCeciliaKELLI 12:00:00 AM EST - 01/14/2021 02:16:21 PM EST [facility] Outpatient Attender: CANDIDO Carballo Office 08/2021 01:00:00 PM EST [facility] ([facility] Outpatient Attender: Ross Martinez/Joaquin/Monty/R eindl 12/01/2020 01:45:00 PM EST [facility] ([facility] Outpatient Attender: CANDIDO Carballo Office 12:45:00 PM EST [facility] ([facility] Outpatient Attender: CANDIDO Carballo Office 01:00:00 PM EST [facility] ([facility] Outpatient Attender: ANKUSH ROCKSJCeciliaKELLI 12:00:00 AM EST - 10/08/2020 03:18:16 PM EST [facility] Outpatient Attender: Leigh PARRISH.KELLI-SJP.KELLI 01/2020 12:00:00 AM EST - 09/22/2020 04:48:11 PM EST [facility] Outpatient Attender: Ross Martinez/Joaquin/Monty/Shabbir monzon 09/17/2020 02:00:00 PM EDT [facility] ([facility] Outpatient Attender: CANDIDO SALAS MD [place] [facility] 03:00:00 PM EDT [facility] Outpatient Attender: CANDIDO SALAS MD [place] [facility] 05/2020 11:00:00 AM EDT [facility] ([facility] Immunizations Vaccine Date Status Description Data Source(s) New in 2011. IIV4 08/20/2021 01:53:00 PM EDT completed [facility] ([facility] COVID-19 VACCINE Moderna 02/22/2021 12:00:00 AM EDT completed [facility] Vaccine Series Complete: YESThis Data wa s Submitted to [facility] Via [facility]. COVID-19 VACCINE, MRNA-1273, LNP-S (MODERNA)/PF 02/22/2021 1 2:00:00 AM EDT completed [facility] COVID-19 VACCINE Moderna 01/22/2021 12:00:00 AM EST completed [facility] Vaccine Series Complete: NOThis Data was Submitted to [facility] Via [employer]. COVID-19 VACCINE, MRNA-1273, LNP-S (MODERNA)/PF 01/22/2021 1 2:00:00 AM EST completed [facility] New in 2012. IIV4 08/26/2020 11:00:00 AM EDT completed [facility] ([facility] Medications Medication Brand Name Start Date Product Form Dose Route Admi nistrative Instructions Pharmacy Instructions Status Indications Reaction Description Data Source(s) 2.5 mg /3 mL (0.083 %) 10/11/2021 12:00:00 AM EST solu tion for nebulization 300 INHALE THE CONTENTS OF ONE VIAL VIA NEBU LIZER EVERY 4 HOURS NEEDED INHALE THE CONTENTS OF ONE VIAL VIA NEBULIZER EVERY 4 HOURS NEEDED SOLD: 10/12/2021 [facility] 60 ACTUAT Albuterol 0.09 MG/ACTUAT Metered Dose Inhaler Albu terol Sulfate HFA 10/04/2021 12:00:00 AM EST RESPIRATORY active [facility] ([facility] ) 25 mg 09/09/2021 12:00:00 AM EDT tablet 90 TAKE 1/2 TABLET BY MOUTH TWICE A DAY MAXIMUM DAILY DOSE = 1 TABLET TAKE 1/2 TABLET BY MOUTH TWICE A DAY MAX IMUM DAILY DOSE = 1 TABLET SOLD: 09/13/2021 [facility] atorvastatin 40 MG Oral Tablet ATORVASTATIN CALCIUM 09/09/2021 1 2:00:00 AM EDT tablet 90 TAKE ONE TABLET BY MOUTH EVERY D AY TAKE ONE TABLET BY MOUTH EVERY DAY SOLD: 09/13/2021 [facility] 200 mg (950 mg) 08/18/2021 12:00:00 AM EDT tablet 30 TAKE ONE TABLET BY MOUTH EVERY DAY TAKE ONE TABLET BY MOUTH EVERY DAY SOLD: 08/29/2021 [facility] 25 mg 08/17/2021 12:00:00 AM EDT tablet 30 TAKE ONE-HALF TABLET BY MOUTH TWO TIMES A DAY TAKE ONE-HALF TABLET BY MOUTH TWO TIMES A DAY SOLD: 08/17/2021 [facility] atorvastatin 40 MG Oral Tablet ATORVASTATIN CALCIUM 08/17/2021 1 2:00:00 AM EDT tablet 30 TAKE ONE TABLET BY MOUTH EVERY D AY TAKE ONE TABLET BY MOUTH EVERY DAY SOLD: 08/17/2021 [facility] 1,250 mcg (50,000 unit) 08/17/2021 12:00:00 AM EDT capsule 8 TAKE 1 CAPSULE BY MOUTH EVERY 7 DAYS [EVERY MONDAY] TAKE 1 CAPSULE BY MOUTH EVERY 7 DAYS [EV Monday] SOLD: 08/17/2021 [facility] 5 mg 08/12/2021 12:00:00 AM EDT tablet 60 TAKE ONE TABLET BY MOUTH TWICE A DAY TAKE ONE TABLET BY MOUTH TWICE A DAY SOLD: 08/17/2021 [facility] 600 mg 07/13/2021 12:00:00 AM EDT tablet 360 TAKE ONE TABLET BY MOUTH FOUR TIMES A DAY TAKE ONE TABLET BY MOUTH FOUR TIMES A DAY SOLD: 07/13/2021 [facility] 5 mg 06/16/2021 12:00:00 AM EDT tablet 60 TAKE ONE TABLET BY MOUTH TWICE A DAY TAKE ONE TABLET BY MOUTH TWICE A DAY SOLD: 2021 [facility] 5 mg 06/16/2021 12:00:00 AM EDT tablet 60 TAKE ONE TABLET BY MOUTH TWICE A DAY TAKE ONE TABLET BY MOUTH TWICE A DAY SOLD: 07/15/2021 [facility] 90 mcg/actuation 06/15/2021 12:00:00 AM EDT HFA aerosol inha ler 18 INHALE 2 PUFFS BY MOUTH EVERY 4 HOURS NEEDED INHALE 2 PUFFS BY MOUTH EVERY 4 HOURS NEEDED SOLD: 08/11/2021 [facility] 90 mcg/actuation 06/15/2021 12:00:00 AM EDT HFA aerosol inha ler 18 INHALE 2 PUFFS BY MOUTH EVERY 4 HOURS NEEDED INHALE 2 PUFFS BY MOUTH EVERY 4 HOURS NEEDED SOLD: 07/03/2021 [facility] 90 mcg/actuation 06/15/2021 12:00:00 AM EDT HFA aerosol inha ler 18 INHALE 2 PUFFS BY MOUTH EVERY 4 HOURS NEEDED INHALE 2 PUFFS BY MOUTH EVERY 4 HOURS NEEDED SOLD: 07/22/2021 [facility] 90 mcg/actuation 06/15/2021 12:00:00 AM EDT HFA aerosol inha ler 18 INHALE 2 PUFFS BY MOUTH EVERY 4 HOURS NEEDED INHALE 2 PUFFS BY MOUTH EVERY 4 HOURS NEEDED SOLD: 08/29/2021 [facility] 90 mcg/actuation 06/15/2021 12:00:00 AM EDT HFA aerosol inha ler 18 INHALE 2 PUFFS BY MOUTH EVERY 4 HOURS NEEDED INHALE 2 PUFFS BY MOUTH EVERY 4 HOURS NEEDED SOLD: 06/15/2021 [facility] 90 mcg/actuation 06/15/2021 12:00:00 AM EDT HFA aerosol inha ler 18 INHALE 2 PUFFS BY MOUTH EVERY 4 HOURS NEEDED INHALE 2 PUFFS BY MOUTH EVERY 4 HOURS NEEDED SOLD: 09/16/2021 [facility] 10 mg 06/01/2021 12:00:00 AM EDT tablet 30 TAKE 4 TABLETS BY MOUTH DAILY FOR 3 DAYS THEN 3 TABLETS DAILY FOR 3 DAYS THEN 2 TABLETS DAILY FOR 3 DAYS THEN 1 TABLET DAILY FOR 3 DAYS AND STOP TAKE 4 TABLETS BY MOUTH DAILY FOR 3 DAYS THEN 3 TABLETS DAILY FOR 3 DAYS THEN 2 TABLETS DAILY FOR 3 DAYS THEN 1 TABLET DAILY FOR 3 DAYS AND STOP SOLD: 06/01/2021 [facility] 40 mg 06/01/2021 12:00:00 AM EDT tablet 30 TAKE 1 TABLET BY MOUTH DAILY TAKE 1 TABLET BY MOUTH DAILY SOLD: 06/01/2021 [facility] 500 mg 05/21/2021 12:00:00 AM EDT tablet 180 TAKE ONE TABLET BY MOUTH TWICE A DAY TAKE ONE TABLET BY MOUTH TWICE A DAY SOLD: 05/23/2021 [facility] Metformin hydrochloride 500 MG Oral Tablet Metformin HCL 05/20/2021 12:00:00 AM EDT ORAL active [facility] ([facility] 90 mcg/actuation 05/19/2021 12:00:00 AM EDT HFA aerosol inha ler 18 INHALE TWO PUFFS BY MOUTH EVERY 4 TO 6 HOURS NEEDED INHALE TWO PUFFS BY MOUTH EVERY 4 TO 6 HOURS NEEDED SOLD: 05/20/2021 [facility] albuterol (PROVENTIL HFA;VENTOLIN HFA) 108 (90 Base) M CG/ACT inhaler [id number] 05/18/2021 12:00:00 AM EDT activ e INHALE TWO PUFFS BY MOUTH EVERY 4 TO 6 HOURS NEEDED [facility] montelukast 10 MG Oral Tablet MONTELUKAST SODIUM 04/14/2021 12:0 0:00 AM EDT tablet 90 TAKE 1 TABLET BY MOUTH AT BEDTIM E. MAXIMUM DAILY DOSE = 1 TAKE 1 TABLET BY MOUTH AT BEDTIME. MAXIMUM DAILY DOSE = 1 SOLD: 04/20/2021 [facility] 5 mg 04/14/2021 12:00:00 AM EDT tablet 60 TAKE ONE TABLET BY MOUTH TWICE A DAY TAKE ONE TABLET BY MOUTH TWICE A DAY SOLD: 05/18/2021 [facility] montelukast 10 MG Oral Tablet MONTELUKAST SODIUM 04/14/2021 12:0 0:00 AM EDT tablet 90 TAKE 1 TABLET BY MOUTH AT BEDTIM E. MAXIMUM DAILY DOSE = 1 TAKE 1 TABLET BY MOUTH AT BEDTIME. MAXIMUM DAILY DOSE = 1 SOLD: 10/13/2021 [facility] montelukast 10 MG Oral Tablet MONTELUKAST SODIUM 04/14/2021 12:0 0:00 AM EDT tablet 90 TAKE 1 TABLET BY MOUTH AT BEDTIM E. MAXIMUM DAILY DOSE = 1 TAKE 1 TABLET BY MOUTH AT BEDTIME. MAXIMUM DAILY DOSE = 1 SOLD: 07/17/2021 [facility] 5 mg 04/14/2021 12:00:00 AM EDT tablet 60 TAKE ONE TABLET BY MOUTH TWICE A DAY TAKE ONE TABLET BY MOUTH TWICE A DAY SOLD: 04/20/2021 [facility] apixaban 5 MG Oral Tablet [Eliquis] Eliquis 5 MG TABS tablet Eliquis 5 MG TABS tablet 04/13/2021 12:00:00 AM EDT active TAKE ONE TABLET BY MOUTH TWICE A DAY [facility] montelukast 10 MG Oral Tablet Montelukast Sodium 04/13/2021 12:00:00 AM EDT active [facility] ([facility] Bacitracin 0.5 UNT/MG / Polymyxin B 10 UNT/MG Topical Ointment [Polysporin] Polysporin 02/26/2021 12:00:00 AM EDT active [facility] ([facility], ) Sinus Rinse Bottle Kit 02/26/2021 12:00:00 AM EDT active [facility] ([facility] ) 5 mg 02/16/2021 12:00:00 AM EDT tablet 60 TAKE ONE TABLET BY MOUTH TWICE A DAY TAKE ONE TABLET BY MOUTH TWICE A DAY SOLD: 03/17/2021 [facility] 5 mg 02/16/2021 12:00:00 AM EDT tablet 60 TAKE ONE TABLET BY MOUTH TWICE A DAY TAKE ONE TABLET BY MOUTH TWICE A DAY SOLD: 02/16/2021 [facility] 0.5 mg/2 mL 01/29/2021 12:00:00 AM EST suspension for nebuli zation 180 INHALE ONE VIAL VIA NEBULIZER TWICE A DAY INHALE ONE VIAL VIA NEBULIZER TWICE A DAY SOLD: 05/04/2021 [facility] 0.5 mg/2 mL 01/29/2021 12:00:00 AM EST suspension for nebuli zation 180 INHALE ONE VIAL VIA NEBULIZER TWICE A DAY INHALE ONE VIAL VIA NEBULIZER TWICE A DAY SOLD: 08/01/2021 [facility] 0.5 mg/2 mL 01/29/2021 12:00:00 AM EST suspension for nebuli zation 180 INHALE ONE VIAL VIA NEBULIZER TWICE A DAY INHALE ONE VIAL VIA NEBULIZER TWICE A DAY SOLD: 03/21/2021 [facility] 0.5 mg/2 mL 01/29/2021 12:00:00 AM EST suspension for nebuli zation 180 INHALE ONE VIAL VIA NEBULIZER TWICE A DAY INHALE ONE VIAL VIA NEBULIZER TWICE A DAY SOLD: 02/04/2021 [facility] 0.5 mg/2 mL 01/29/2021 12:00:00 AM EST suspension for nebuli zation 180 INHALE ONE VIAL VIA NEBULIZER TWICE A DAY INHALE ONE VIAL VIA NEBULIZER TWICE A DAY SOLD: 2021 [facility] apixaban 5 MG Oral Tablet Apixaban (ELIQUIS) 5 MG TABS tablet Apixaban (ELIQUIS) 5 MG TABS tablet 01/14/2021 12:00:00 AM EST 5 mg Oral active Take 1 tablet (5 mg total) by mouth 2 (two) times a day [facility] 50 mg 12/31/2020 12:00:00 AM EST tablet 90 TAKE 1TAB.BY MOUTH 3X/DAY NEEDED FOR PAIN MAX=3TABS A DAY.DO NOT DRIVE WHILE ON TAKE 1TAB.BY MOUTH 3X/DAY NEEDED FOR PAIN MAX=3TABS A DAY.DO NOT DRIVE WHILE ON SOLD: 01/30/2021 [facility] tramadol hydrochloride 50 MG Oral Tablet traMADol (ULT ZARA) 50 MG tablet traMADol (ULTRAM) 50 MG tablet 12/31/2020 12:00:00 AM EST aborted TAKE 1TAB.BY MOUTH 3X/DAY NEEDED FOR PAIN MAX 3TABS A DAY.DO NOT DRIVE WHILE ON [facility] 50 mg 12/31/2020 12:00:00 AM EST tablet 90 TAKE 1TAB.BY MOUTH 3X/DAY NEEDED FOR PAIN MAX=3TABS A DAY.DO NOT DRIVE WHILE ON TAKE 1TAB.BY MOUTH 3X/DAY NEEDED FOR PAIN MAX=3TABS A DAY.DO NOT DRIVE WHILE ON SOLD: 12/31/2020 [facility] tramadol hydrochloride 50 MG Oral Tablet Tramadol HCL 12/30/2020 12:00:00 AM EST ORAL active [facility] ([facility] 10 mg 12/26/2020 12:00:00 AM EST tablet 90 TAKE ONE TABLET BY MOUTH EVERY DAY TAKE ONE TABLET BY MOUTH EVERY DAY SOLD: 03/25/2021 [facility] 10 mg 12/26/2020 12:00:00 AM EST tablet 90 TAKE ONE TABLET BY MOUTH EVERY DAY TAKE ONE TABLET BY MOUTH EVERY DAY SOLD: 06/22/2021 [facility] 10 mg 12/26/2020 12:00:00 AM EST tablet 90 TAKE ONE TABLET BY MOUTH EVERY DAY TAKE ONE TABLET BY MOUTH EVERY DAY SOLD: 12/27/2020 [facility] Metformin hydrochloride 500 MG Oral Tablet METFORMIN HCL 12/23/2020 12:00:00 AM EST tablet 180 TAKE ONE TABLET BY MOUTH THR EE TIMES A DAY TAKE ONE TABLET BY MOUTH THREE TIMES A DAY SOLD: 12/27/2020 [facility] 90 mcg/actuation 12/17/2020 12:00:00 AM EST HFA aerosol inha ler 18 INHALE TWO PUFFS BY MOUTH EVERY 4 TO 6 HOURS NEEDED INHALE TWO PUFFS BY MOUTH EVERY 4 TO 6 HOURS NEEDED SOLD: 01/24/2021 [facility] 90 mcg/actuation 12/17/2020 12:00:00 AM EST HFA aerosol inha ler 18 INHALE TWO PUFFS BY MOUTH EVERY 4 TO 6 HOURS NEEDED INHALE TWO PUFFS BY MOUTH EVERY 4 TO 6 HOURS NEEDED SOLD: 02/16/2021 [facility] 50 mcg/actuation 12/17/2020 12:00:00 AM EST spray,suspension 48 SPRAY 2 SPRAYS EACH NOSTRIL EVERY DAY DIRECTED SPRAY 2 SPRAYS EACH NOSTRIL EVERY DAY DIRECTED SOLD: 12/17/2020 [facility] 90 mcg/actuation 12/17/2020 12:00:00 AM EST HFA aerosol inha ler 18 INHALE TWO PUFFS BY MOUTH EVERY 4 TO 6 HOURS NEEDED INHALE TWO PUFFS BY MOUTH EVERY 4 TO 6 HOURS NEEDED SOLD: 12/17/2020 [facility] 60 ACTUAT Albuterol 0.09 MG/ACTUAT Metered Dose Inhaler Albu terol Sulfate HFA 12/16/2020 12:00:00 AM EST RESPIRATORY active [facility] ([facility] 5 mg 12/05/2020 12:00:00 AM EST tablet 60 TAKE ONE TABLET BY MOUTH TWICE A DAY TAKE ONE TABLET BY MOUTH TWICE A DAY SOLD: 01/14/2021 [facility] 5 mg 12/05/2020 12:00:00 AM EST tablet 60 TAKE ONE TABLET BY MOUTH TWICE A DAY TAKE ONE TABLET BY MOUTH TWICE A DAY SOLD: 12/17/2020 [facility] apixaban 5 MG Oral Tablet [Eliquis] ELIQUIS 5 MG TABS tablet ELIQUIS 5 MG TABS tablet 12/04/2020 12:00:00 AM EST aborted TAKE ONE TABLET BY MOUTH TWICE A DAY [facility] 18 mcg 12/02/2020 12:00:00 AM EST capsule, w/inhalation d evice 30 INHALE THE CONTENTS OF ONE CAPSULE VIA HANDIHALER BY MOUTH EVERY MORNING INHALE THE CONTENTS OF ONE CAPSULE VIA HANDIHALER BY MOUTH EVERY MORNING SOLD: 12/03/2020 [facility] 18 mcg 12/02/2020 12:00:00 AM EST capsule, w/inhalation d evice 30 INHALE THE CONTENTS OF ONE CAPSULE VIA HANDIHALER BY MOUTH EVERY MORNING INHALE THE CONTENTS OF ONE CAPSULE VIA HANDIHALER BY MOUTH EVERY MORNING SOLD: 12/31/2020 [facility] 5 mg 10/09/2020 12:00:00 AM EST tablet 60 TAKE ONE TABLET BY MOUTH TWICE A DAY TAKE ONE TABLET BY MOUTH TWICE A DAY SOLD: 11/07/2020 [facility] 5 mg 10/09/2020 12:00:00 AM EST tablet 60 TAKE ONE TABLET BY MOUTH TWICE A DAY TAKE ONE TABLET BY MOUTH TWICE A DAY SOLD: 10/10/2020 [facility] apixaban 5 MG Oral Tablet Apixaban (ELIQUIS) 5 MG TABS tablet Apixaban (ELIQUIS) 5 MG TABS tablet 10/08/2020 12:00:00 AM EST 5 mg Oral active Take 1 tablet (5 mg total) by mouth 2 (two) times a day [facility] 1.25 mcg/actuation 10/03/2020 12:00:00 AM EST mist 12 INHALE 2 PUFFS BY MOUTH ONCE A DAY INHALE 2 PUFFS BY MOUTH ONCE A DAY SOLD: 10/04/2020 [facility] 1.25 mcg/actuation 10/03/2020 12:00:00 AM EST mist 12 INHALE 2 PUFFS BY MOUTH ONCE A DAY INHALE 2 PUFFS BY MOUTH ONCE A DAY SOLD: 12/31/2020 [facility] 160-4.5 mcg/actuation 09/30/2020 12:00:00 AM EST HFA aerosol inhaler 10 INHALE 2 PUFFS BY MOUTH TWO TIMES A DAY INHALE 2 PUFFS BY MOUTH TWO TIMES A DAY SOLD: 12/29/2020 [facility] 160-4.5 mcg/actuation 09/30/2020 12:00:00 AM EST HFA aerosol inhaler 10 INHALE 2 PUFFS BY MOUTH TWO TIMES A DAY INHALE 2 PUFFS BY MOUTH TWO TIMES A DAY SOLD: 11/03/2020 [facility] 160-4.5 mcg/actuation 09/30/2020 12:00:00 AM EST HFA aerosol inhaler 10 INHALE 2 PUFFS BY MOUTH TWO TIMES A DAY INHALE 2 PUFFS BY MOUTH TWO TIMES A DAY SOLD: 12/01/2020 [facility] 160-4.5 mcg/actuation 09/30/2020 12:00:00 AM EST HFA aerosol inhaler 10 INHALE 2 PUFFS BY MOUTH TWO TIMES A DAY INHALE 2 PUFFS BY MOUTH TWO TIMES A DAY SOLD: 10/01/2020 [facility] Budesonide 0.25 MG/ML Inhalant Solution budesonide (PULMICORT) 0.5 MG/2ML nebulizer solution budesonide (PULMICORT) 0.5 MG/2ML nebulizer solution 09/08/2020 12:00:00 AM EDT active USE 1 VIAL VIA NEBULIZER TWO TIMES A DAY [facility] montelukast 10 MG Oral Tablet montelukast (SINGULAIR) 10 MG tablet montelukast (SINGULAIR) 10 MG tablet 09/03/2020 12:00:00 AM EDT active TAKE 1 TABLET BY MOUTH AT BEDTIME MAXIMUM DAILY DOSE 1 [facility] 60 ACTUAT Budesonide 0.16 MG/ACTUAT / fo rmoterol fumarate 0.0045 MG/ACTUAT Metered Dose Inhaler budesonide-formoterol (SYMBICORT) 160-4.5 MCG/ACT inhaler budesonide-formoterol (SYMBICORT) 160-4.5 MCG/ACT inhaler 09/01/2020 12:00:00 AM EDT active INHALE 2 PUFFS BY MOUTH TWO TIMES A DAY [facility] 10 mg 08/25/2020 12:00:00 AM EDT tablet 30 TAKE 4 TABLETS BY MOUTH ONCE DAILY FOR 3 DAYS THEN 3 TABLETS ONCE DAILY FOR 3 DAYS THEN 2 TABLETS ONCE DAILY FOR 3 DAYS THEN 1 TABLET DAILY FOR 3 DAYS THEN STOP TAKE 4 TABLETS BY MOUTH ONCE DAILY FOR 3 DAYS THEN 3 TABLETS ONCE DAILY FOR 3 DAYS THEN 2 TABLETS ONCE DAILY FOR 3 DAYS THEN 1 TABLET DAILY FOR 3 DAYS THEN STOP SOLD: 08/25/2020 [facility] 2.5 mg /3 mL (0.083 %) 08/25/2020 12:00:00 AM EDT solu tion for nebulization 300 INHALE THE CONTENTS OF ONE VIAL VIA NEBU LIZER EVERY 4 HOURS NEEDED INHALE THE CONTENTS OF ONE VIAL VIA NEBULIZER EVERY 4 HOURS NEEDED SOLD: 08/25/2020 [facility] Albuterol 0.83 MG/ML Inhalant Solution a lbuterol (PROVENTIL) (2.5 MG/3ML) 0.083% nebulizer solution albuterol (PROVENTIL) (2.5 MG/3ML) 0.083 % nebulizer solution 08/25/2020 12:00:00 AM EDT active as needed [facility] Prednisone 10 MG Oral Tablet predniSONE (DELTASONE) 10 MG tablet predniSONE (DELTASONE) 10 MG tablet 08/25/2020 12:00:00 AM EDT 10 mg active 10 mg daily [facility] Warfarin Sodium 2 MG Oral Tablet warfarin (COUMADIN) 2 MG tablet warfarin (COUMADIN) 2 MG tablet 08/12/2020 12:00:00 AM EDT 4 mg Oral aborted Take 4 mg by mouth daily [facility] Warfarin Sodium 2 MG Oral Tablet [Coumadin] Coumadin 07/22 12:00:00 AM EDT ORAL completed [facility] ([facility] albuterol (PROVENTIL HFA;VENTOLIN HFA) 108 (90 Base) M CG/ACT inhaler [id number] 08/08/2020 12:00:00 AM EDT abort ed INHALE TWO PUFFS BY MOUTH EVERY 4 TO 6 HOURS NEEDED [facility] Metformin hydrochloride 500 MG Oral Tablet metFORMIN ( GLUCOPHAGE) 500 MG tablet metFORMIN (GLUCOPHAGE) 500 MG tablet 08/04/2020 12:00:[address] [facility] Warfarin Sodium 3 MG Oral Tablet warfarin (COUMADIN) 3 MG tablet warfarin (COUMADIN) 3 MG tablet 08/01/2020 12:00:00 AM EDT aborted [facility] 150 mg 07/28/2020 12:00:00 AM EDT capsule,extended releas e 24hr 90 TAKE ONE CAPSULE BY MOUTH DAILY MAXIMUM DAILY DOSE = ONE CAPSULE TAKE ONE CAPSULE BY MOUTH DAILY MAXIMUM DAILY DOSE = ONE CAPSULE SOLD: 07/22/2021 [facility] 150 mg 07/28/2020 12:00:00 AM EDT capsule,extended releas e 24hr 90 TAKE ONE CAPSULE BY MOUTH DAILY MAXIMUM DAILY DOSE = ONE CAPSULE TAKE ONE CAPSULE BY MOUTH DAILY MAXIMUM DAILY DOSE = ONE CAPSULE SOLD: 10/29/2020 [facility] 150 mg 07/28/2020 12:00:00 AM EDT capsule,extended releas e 24hr 90 TAKE ONE CAPSULE BY MOUTH DAILY MAXIMUM DAILY DOSE = ONE CAPSULE TAKE ONE CAPSULE BY MOUTH DAILY MAXIMUM DAILY DOSE = ONE CAPSULE SOLD: 01/26/2021 [facility] 150 mg 07/28/2020 12:00:00 AM EDT capsule,extended releas e 24hr 90 TAKE ONE CAPSULE BY MOUTH DAILY MAXIMUM DAILY DOSE = ONE CAPSULE TAKE ONE CAPSULE BY MOUTH DAILY MAXIMUM DAILY DOSE = ONE CAPSULE SOLD: 04/24/2021 [facility] SPIRIVA RESPIMAT 1.25 MCG/ACT AERS [id number] 07/06/2020 12:00:00 A M EDT aborted INHALE 2 PUFFS BY MO UTH ONCE A DAY [facility] 160-4.5 mcg/actuation 05/11/2020 12:00:00 AM EDT HFA aerosol inhaler 10 INHALE 2 PUFFS BY MOUTH TWO TIMES A DAY INHALE 2 PUFFS BY MOUTH TWO TIMES A DAY SOLD: 09/01/2020 [facility] 600 mg 04/29/2020 12:00:00 AM EDT tablet 360 TAKE ONE TABLET BY MOUTH FOUR TIMES A DAY TAKE ONE TABLET BY MOUTH FOUR TIMES A DAY SOLD: 10/25/2020 [facility] 600 mg 04/29/2020 12:00:00 AM EDT tablet 360 TAKE ONE TABLET BY MOUTH FOUR TIMES A DAY TAKE ONE TABLET BY MOUTH FOUR TIMES A DAY SOLD: 01/24/2021 [facility] 0.5 mg/2 mL 04/21/2020 12:00:00 AM EDT suspension for nebuli zation 180 USE 1 VIAL VIA NEBULIZER TWO TIMES A DAY USE 1 VIAL VIA NEBULIZER TWO TIMES A DAY SOLD: 09/10/2020 [facility] 0.5 mg/2 mL 04/21/2020 12:00:00 AM EDT suspension for nebuli zation 180 USE 1 VIAL VIA NEBULIZER TWO TIMES A DAY USE 1 VIAL VIA NEBULIZER TWO TIMES A DAY SOLD: 12/17/2020 [facility] 0.5 mg/2 mL 04/21/2020 12:00:00 AM EDT suspension for nebuli zation 180 USE 1 VIAL VIA NEBULIZER TWO TIMES A DAY USE 1 VIAL VIA NEBULIZER TWO TIMES A DAY SOLD: 10/25/2020 [facility] 10 mg 01/13/2020 12:00:00 AM EST tablet 90 TAKE ONE TABLET BY MOUTH EVERY DAY TAKE ONE TABLET BY MOUTH EVERY DAY SOLD: 09/29/2020 [facility] montelukast 10 MG Oral Tablet MONTELUKAST SODIUM 01/07/2020 12:0 0:00 AM EST tablet 90 TAKE 1 TABLET BY MOUTH AT BEDTIM E MAXIMUM DAILY DOSE = 1 TAKE 1 TABLET BY MOUTH AT BEDTIME MAXIMUM DAILY DOSE = 1 SOLD: 12/27/2020 [facility] montelukast 10 MG Oral Tablet MONTELUKAST SODIUM 01/07/2020 12:0 0:00 AM EST tablet 90 TAKE 1 TABLET BY MOUTH AT BEDTIM E MAXIMUM DAILY DOSE = 1 TAKE 1 TABLET BY MOUTH AT BEDTIME MAXIMUM DAILY DOSE = 1 SOLD: 09/03/2020 [facility] risedronate sodium 150 MG Oral Tablet RISEDRONATE SODIUM 12:00:00 AM EST tablet 3 TAKE 1 TABLET BY MOUTH ONCE A MONTH ON AN EMPTY STOMACH MAXIMUM DAILY DOSE = 1 TAKE 1 TABLET BY MOUTH ONCE A MONTH ON A N EMPTY STOMACH MAXIMUM DAILY DOSE = 1 SOLD: 11/15/2020 [facility] risedronate sodium 150 MG Oral Tablet RISEDRONATE SODIUM 12:00:00 AM EST tablet 3 TAKE 1 TABLET BY MOUTH ONCE A MONTH ON AN EMPTY STOMACH MAXIMUM DAILY DOSE = 1 TAKE 1 TABLET BY MOUTH ONCE A MONTH ON A N EMPTY STOMACH MAXIMUM DAILY DOSE = 1 SOLD: 08/18/2020 [facility] atorvastatin 40 MG Oral Tablet atorvastatin (LIPITOR) 40 MG tablet atorvastatin (LIPITOR) 40 MG tablet 40 mg Oral aborted T kya 40 mg by mouth daily [facility] POLYETHYLENE GLYCOL 3350 142 MG/ML Oral Solution polyethylene glycol (GLYCOLAX) 17 g packet polyethylene glycol (GLYCOLAX) 17 g packet 17 g O ral aborted Take 17 g by mouth as needed [facility] sennosides, [facility] NURSING 8.6 MG Oral Tablet senna (SENOKOT) 8.6 MG TABS senna (SENOKOT) 8.6 MG TABS 8.6 mg Oral aborted Take 8.6 mg by mouth as needed [facility] Insurance Providers Payer name Policy type / Coverage type Policy ID Covered democrat ID Covered democrat's relationship to shah Policy Shah Plan Information [id number] [employer] [id number] SP [id number] [employer] [id number] SP [id number] MEDICARE [id number] SP [id number] [place] Medicare Primary [id number] Self [id number] Medicare - [facility] Medicare Primary [id number] Self [id number] Medicare - [facility] Medicare Primary [id number] Self 0 [id number] [place] Primary [id number] Self [id number] MEDICARE [id number] SP [id number] [id number] MEDICARE A [id number] Self [id number] [place] Medicare Primary [id number] Self [id number] [place] Medicare Primary [id number] Self [id number] MEDICARE [id number] Zoe [id number] [id number] MEDICARE [id number] xxxxxxxxxxx [id number] UMR U [id number] Self [id number] UMR [id number] Zoe [id number] UMR [id number] xxxxxxxxx [id number] R [facility] [id number] SP [id number] UMR O [id number] S [id number] MEDICARE C [id number] S [id number] Umr Commercial [id number] Self [id number] [employer] Medigap Part B [id number] Self [id number] R [facility] [id number] SP [id number] R [facility] [id number] SP [id number] [employer] Medigap Part B [id number] Self [id number] [employer] PPO O [id number] S [id number] MEDICARE C [id number] S [id number] A [employer] PPO O [id number] S [id number] [employer] [id number] Self [id number] Problems, Conditions, and Diagnoses Code Display Name Description Problem Type Effective Dates Data Source(s) I48.91 Unspecified atrial fibrillation Unspecified atri al fibrillation Diagnosis 05/18/2021 01:32:59 PM EDT [facility] J43.9 Emphysema, unspecified Emphysema, unspecified Diagnosi s 10/08/2020 02:12:08 PM EST [facility] I34.0 Nonrheumatic mitral (valve) insufficienc y Nonrheumatic mitral (valve) insufficienc Diagnosis 10/08/2020 02:12:08 PM EST [facility] J43.9 Pulmonary emphysema Pulmonary emphysema [id number] 1 11/22/2019 12:00:00 AM EST [facility] I48.91 Atrial fibrillation Atrial fibrillation [id number] 1 11/22/2019 12:00:00 AM EST [facility] Z87.891 Ex-smoker Ex-smoker Problem 09/17/2020 12:00:00 AM ED T [facility] ([facility] ) Surgeries/Procedures Procedure Description Date Indications Data Source(s) OFFICE OUTPATIENT VISIT 25 MINUTES 09/29/2021 12:00:00 AM EST [facility] ([facility] ) OFFICE OUTPATIENT VISIT 25 MINUTES 09/27/2021 12:00:00 AM EST [facility] ([facility] OFFICE OUTPATIENT VISIT 25 MINUTES 08/25/2021 12:00:00 AM EDT [facility] ([facility] OFFICE OUTPATIENT VISIT 25 MINUTES 06/14/2021 12:00:00 AM EDT [facility] ([facility] ) OFFICE OUTPATIENT VISIT 25 MINUTES 06/04/2021 12:00:00 AM EDT [facility] ([facility] OFFICE OUTPATIENT VISIT 25 MINUTES 05/19/2021 12:00:00 AM EDT [facility] ([facility] ECG ROUTINE ECG W/LEAST 12 LDS W/I&R <td>POCT AMB EKG</td><td>Routine</td><td>05/18/2021 4:40 PM EDT</td><td> Atrial fibrillation, unspecified type</td><td> </td> 05/18/2021 04:40:00 PM EDT Atrial fibrillation, unspecified type [facility] Atrial fibrillation, unspecified type OFFICE OUTPATIENT VISIT 15 MINUTES 03/23/2021 12:00:00 AM EDT [facility] ([facility] OFFICE OUTPATIENT VISIT 25 MINUTES 03/01/2021 12:00:00 AM EDT [facility] ([facility] ) OFFICE OUTPATIENT NEW 30 MINUTES 02/26/2021 12:00:00 A M EDT [facility] ([facility] ) OFFICE OUTPATIENT VISIT 25 MINUTES 02/15/2021 12:00:00 AM EDT [facility] ([facility] BLOOD COUNT COMPLETE AUTO&AUTO DIFRNTL WBC COUNT <td>C BC AND DIFFERENTIAL</td><td>Routine</td><td>02/15/2021</td><td></td><td> </td> 02/15/2021 12:00:00 AM EDT [facility] HEPATIC FUNCTION PANEL <td>HEPATIC FUNCTION PANEL</td><td>Routine</td><td>02/15/2021</td><td></td><td> </td> 02/15/2021 12:00:00 AM EDT [facility] LIPID PANEL <td>LIPID PANEL</td><td>Rout ine</td><td>02/15/2021</td><td></td><td> </td> 02/15/2021 12:00:00 AM EDT [facility] LIPID PANEL <td>LIPID PANEL</td><td>Rout ine</td><td>02/15/2021</td><td></td><td> </td> 02/15/2021 12:00:00 AM EDT [facility] BASIC METABOLIC PANEL CALCIUM TOTAL <td>BASIC METABOLI C PANEL</td><td>Routine</td><td>02/15/2021</td><td></td><td> </td> 02/15/2021 12:00:00 AM EDT [facility] ECG ROUTINE ECG W/LEAST 12 LDS W/I&R <td>POCT AMB EKG</td><td>Routine</td><td>01/14/2021 5:14 PM EST</td><td> Atrial fibrillation, unspecified type</td><td> </td> 01/14/2021 10:14:00 PM EST Atrial fibrillation, unspecified type [facility] Atrial fibrillation, unspecified type OFFICE OUTPATIENT VISIT 25 MINUTES 12/30/2020 12:00:00 AM EST [facility] ([facility] POCT AMB EKG <td>POCT AMB EKG</td><td>Rou fortunato</td><td>10/12/2020 7:46 AM EST</td><td> Atrial fibrillation, unspecified type</td><td> </td> 10/12/2020 12:46:00 PM EST Atrial fibrillation, unspecified type [facility] Atrial fibrillation, unspecified type Capillary Blood Collection Finger, Heel, Ear Stick 10/07/2020 12:00:00 AM EST [facility] ([facility] ) POCT AMB EKG <td>POCT AMB EKG</td><td>Rou fortunato</td><td>09/22/2020 9:43 PM EST</td><td> Atrial fibrillation, unspecified type</td><td> </td> 09/23/2020 02:43:00 AM EST Atrial fibrillation, unspecified type [facility] Atrial fibrillation, unspecified type Capillary Blood Collection Finger, Heel, Ear Stick 09/11/2020 12:00:00 AM EDT [facility] ([facility] ) Capillary Blood Collection Finger, Heel, Ear Stick 08/26/2020 12:00:00 AM EDT [facility] ([facility] BLOOD COUNT COMPLETE AUTO&AUTO DIFRNTL WBC COUNT <td>C BC AND DIFFERENTIAL</td><td>Routine</td><td>08/24/2020</td><td></td><td> </td> 08/24/2020 12:00:00 AM EDT [facility] BASIC METABOLIC PANEL CALCIUM TOTAL <td>BASIC METABOLI C PANEL</td><td>Routine</td><td>08/24/2020</td><td></td><td> </td> 08/24/2020 12:00:00 AM EDT [facility] Results ID Date Data Source [id number] 09/27/2021 02:41:00 PM EST [facility] ([facility] Name Value Range Interpretation Code Description Data Izabela rce(s) Supporting Document(s) Hemoglobin A1c/Hemoglobin.total in Blood 7.3 % 4.50-6.20 Above high normal [facility] ([facility] ID Date Data Source [id number] 08/17/2021 08:08:45 PM EDT [facility] Name Value Range Interpretation Code Description Data Izabela rce(s) Supporting Document(s) Discharge Summary [facility] [id number]/BOHmfUHVpt4RxLJljZCf5ANldIHUwA2DhBYJ9cA0mYCA8BHmGLpPfYnQfCSC9 lbm [file] AgICAgICAgICAgICAgICAgICAgICAgICAgICAgICAgICAgICAgICAgICAgICAgICAgICAgICAgICAgIC PoLVAdPDUgUGCrUZItUNOeCEPfLLIoQRRpFDIgPO6V ICAgICAgICAgICAgICAgICAgICAgICAgICAgICAgICAgICAgICAgICAgICAgICAgICAgICAgICAgICAg DPBpDOVyWCJmRBFlHNCeZXGpYBCyKWEmDBPoMPUbIUEvUNTkYMQvIE0YSTGaKMXwHBBjTARhBJGnYCFr ICAgICAgICAgICAgICAgICAgICAgICAgICAgICAgIC JjENTvTAJvGYEcZBFcVEWaNBRiCMRrPEBmIJEmCJRyUOQrQHRuRJKzJDPvMCPnZFJuYD8JLNBzOSNgKD AgICAgICAgICAgICAgICAgICAgICAgICAgICAgICAgICAgICAgICAgICAgICAgICAgICAgICAgICAgIC AgICAgICAgICAgICAgICAgICAgICAgICAgICAgICAg SZ6IUFJeFZNhMRXdRMLiZCJoDRWeLDWyCQAlMUYaALNzHSNrLYJpWCJoEPGnTDYhIVUuCKPySQDjQCDe PQTnARHsMNXrFDMqGFLfVACdATFoQVVoDIYrMPDgBEUbUMQxMZCwBPQhRZ1ZLPQhOJOhWMXeJRLeNGLg ICAgICAgICAgICAgICAgICAgICAgICAgICAgICAgIC ZcDEKdHYKvMBIjTWAtNYWtLAQnOCTyCFYqQHYoKUBlHQFsUULgIWJoSZEqSNJkBLOdVMNkNM0LVNQmXR AgICAgICAgICAgICAgICAgICAgICAgICAgICAgICAgICAgICAgICAgICAgICAgICAgICAgICAgICAgIC AgICAgICAgICAgICAgICAgICAgICAgICAgICAgICAg GKSkBS7TDSVdBJIpVWJwSYGeCJFeEURiAGUjDZHjAHSwHNAeSUWiNRUjVQTfMEBgVQOrALWaKCSrGJRi QIXtJGQmVBPmXYZuDRMhZDTjBHNyMPJcUHTqGDVfCWQkBGWnYLNaEVQgIHLkLP0BBCUoOSMuWHNkYPPt ICAgICAgICAgICAgICAgICAgICAgICAgICAgICAgIC OcLRSiZNVmGFWtLKIbSTMmQYDeEUIyEMUyNTDzGTRpBYTxWXZpADAeDUOvEDQzQALhYJBwNMDnOS9ZKS AgICAgICAgICAgICAgICAgICAgICAgICAgICAgICAgICAgICAgICAgICAgICAgICAgICAgICAgICAgIC AgICAgICAgICAgICAgICAgICAgICAgICAgICAgICAg HNVnYMElRJ9NCC31mUOzv1G6RZUaBP3iame/Se2YBRufucNdeTEaKZ4CFxRxUC8zpp1TWhByCL0pjx8G IMvFGhFrI8B7eKDsHOFeXPPYKrVlS60qTYdvMu99GKicZHKfGfAwSAd9Tz5ZStAqD7geUFGxRbH3JCCd CfV6PGYwVqN7DCXaXyGiSXRdGOIaTIDaVEHHSMT6KC FpWwRdIzVeMTTsQQowZCXWAXPvILCvNeGlLkYuQPRvXwDqFHNARZ8NBuItR2NajF44ACAcXLp+Pg0KZW 1om6OnXTw2UzTmOG0woe1TLLbAHkKbW3WavgR4YUU6TBHkMk5AJILyJPQwyXU2SIEvJDTRQaYoI9MmsG 88YDWSKv9+OEelymGfLafCRxG9XPUsg1AxOGj3XU2O QOBoYDm4aAHsKAqvK0uuyrniLDM7zR9fwzecVbhlMqdlzZxbI6ceGJV0pFKoJH4BTyPnSLMlKN7fQP9f KITrATZxGlI8TQAFXO2XRJPrUXPvyRZmOYByKIJVLI0HBGfhCEO6YNQxtmYllPCoCJqxKP6CJHPpafYt NTMgMCBSDQo+Df0SSB6nr5JbNQd4QVKcSY8ndt7QRL dNZtLuP1O8wZTpQ2M5VMbqPt3JRRXmGNUbOVXdEWGNBZpcUD4MCR8rxgU3KX7CcWJcPMWnHLUluGErNL a5K11qoTRwHEmrQE6QBBR+Quentin+Mp3KHOYzPPKdACSiChLfMDEHCfYiT6HiR2ZFs0UlA1FrSS23eLxgsq ZcUQsgRJ2IUX2wIEAuCFGONJ7HgRJetH8secQ3MvDo LDWXZvQjR87umRUgAIXqNPTaDSDqBo8BNRAbF9PernDgcQvpoyXyTRLmEWECDO3OODsnggFtkYWgcAre TL85pSehSK1TXl9HXeIeCV3uea2FrHGiQn0JCKG6Rw2FZZMeGWIeCSNrARO6JWRhNaWpFNvyMZVzIBAw ZRY9HOTqWXHvZO3NPyBqPYNrORjyHaTpYPXqMDMgsl 1YYNAwFRP0GIhlNlSbKJYzFHKaOUtzGHGhRSYuWPO2NHLzNSTbFL1SHgRsTGDqSXP7SGzzKHLmIBFtxf 1YEIYdENSjLlHyPFNyYCWxWMLhLZugNWTcUVJ3FyY0CUJuBASuJG3VRwJxTBOcFPX3HXsvOOZgGFAvve 2DQMWwBNHwJZE0TlHeQHMeGZIxCDbqMLOrTIE2Ytb9 PKYfYZQtIY5LDcRtFKOfEPErBPbgRKLdBBIcjq9ZJQYjLMIlQXUuRGMtQJQrXEVzLXpwCZMaXZM1IOS1 DAQdOCNpHS0OMgEiCKCtKOu1PBUrYIPwAQOzee5AOMWePJUmOUW5KBOrQHOzWKFtRDjeYSPlJKV8AuX1 IKWyKGIqBL9AHwQlGTVaLonuHqtrJMXaUCGwje8WEG ZjMLXxSVF5QBWeENPkYCEvGYseLZUxUUL1JHd2YNNzAJKuVD8BKjHjLPRvCuKcJASlZLOkMUBsbs4DRR SpZACyTFJ3VLJsTELhGMWnIUpcKCZjAHJ2UcjmICOeSIAqEB1LVpEtYHOjFCIwLXzbKVDqCXIoxi3ABL KbUWK1STBbZiUxVTZyUXRcCWlrPLFuZQPkNBZeYOZz FHDjBC5FMdNxBEHdJHK2HGGaUVEeBCJter9BVDVxBXW0ZbbmWtGyHAJpMEDfHHkrGFWuHKYiRAQzCXYr PDGgAH3GKjJsMDDmVRFjZALqPUBmTEBwqa3KRXAcJRQ1DTX0EUUyMXZgBXGiKSwrEADlQWF5RwK0GMFl JHSgHL0NWiBiNRGhGRI4XxPuACKxECOteu1LTVJuEW C9DeD2NMAeAXAdEZTjWSccAABfTJP7ZWn4ZZQvXATfGQ5KVsQwRMQxYFO3PMPzIPYaEWFkrd2DMTWvYY L0Sff2VAClMOXeMNUsUEtuYZHtQZW6CDJoNVBfLQAkXQ5CFoSpDTCsUWdeZlHrXRKbYIUrnj6SYNJcDT A4Hmo9ILUeUADzZHEhEUlrOMIcZLReVyr9ODFfVTLd JB0BIxKmDNYeMWE9WQBoRAMgIFDzgc0FBUPdSAM3Drs0OCCiCFTnLNLjXOgyLVTuZJEjZGk7RPXaIAYt DW6CPpJyGDTvJCT9KMZtKDSkXBViik5JYOQeMKY6MXIxPZXjPFSjRZZnIVfxVKTyGKJ3GgW2PLOqVUKd MX2TJfMaVATyJLKpWCElOLZvYEPdoz1NBYDqGIV0El RtEEWlBSYfAZZgCQhzCBVyRFA5KKD6WJLoIIQhRO5KSrOaBSXjCXH6FRZaZMEnBDOfwg4FQWYtBXA1An z5ZMEtCLElLFPoKZqjVJMySOS9KPphHNCoUZNtNF2CQfGoBLUwJVdrFBReALGqFBLqnm5AMTZuIGM0AS W4YCUwSRBeMCPrUWdmPFNgDQK9SsP2CCRhZRXjVS2P LiBxCXlhSICKWnx9LLnpD1c4BRQ3Nt8CS5Jrs1WfDTOcWXZPWYqhVS6hpsXxLFQaBv4EK6lOQrxqECUm NcXbSJFxLeZsSEO4HNszJtK7ZEJ9AYQvIXB2QI7wPWI4DYNhIxN3UFZkDKT8HCrqFMK9RHIhYTM6VlVs NlM1NjImHC7PMj5NUpP4OOW5sEPdXe8CGOp3YbyQBzVgOA9NAIk= ID Date Data Source [id number] 08/17/2021 12:39:43 PM [facility] Name Value Range Interpretation Code Description Data Izabela rce(s) Supporting Document(s) Glucose [Mass/volume] in Capillary blood by Glucometer 163 mg/dL 70- 140 [facility] ID Date Data Source [id number] 08/17/2021 11:31:49 AM [facility] Name Value Range Interpretation Code Description Data Izabela rce(s) Supporting Document(s) Glucose [Mass/volume] in Capillary blood by Glucometer 208 mg/dL 70- 140 [facility] ID Date Data Source [id number] 08/17/2021 10:28:25 AM [facility] Name Value Range Interpretation Code Description Data Izabela rce(s) Supporting Document(s) Glucose [Mass/volume] in Capillary blood by Glucometer 149 mg/dL 70- 140 [facility] ID Date Data Source [id number] 08/17/2021 09:43:02 AM [facility] Value Range Interpretation Code Description Data Izabela rce(s) Supporting Document(s) Glucose [Mass/volume] in Capillary blood by Glucometer 94 mg/dL 70- 140 [facility] ID Date Data Source [id number] 08/17/2021 08:40:31 AM [facility] Value Range Interpretation Code Description Data Izabela rce(s) Supporting Document(s) Glucose [Mass/volume] in Capillary blood by Glucometer 80 mg/dL 70- 140 [facility] ID Date Data Source [id number] 08/17/2021 08:40:31 AM [facility] Value Range Interpretation Code Description Data Izabela rce(s) Supporting Document(s) Glucose [Mass/volume] in Capillary blood by Glucometer 64 mg/dL 70- 140 [facility] ID Date Data Source [id number] 08/17/2021 08:57:30 AM [facility] Value Range Interpretation Code Description Data Izabela rce(s) Supporting Document(s) Bicarbonate [Moles/volume] in Serum 29 mmol/L 22-29 [facility] Chloride [Moles/volume] in Serum or Plasma 97 mmol/L 98-107 [facility] Creatinine [Mass/volume] in Serum or Plasma 0.67 mg/dL 0.50-0.90 [facility] Glucose [Mass/volume] in Serum or Plasma 72 mg/dL 70-140 [facility] Potassium [Moles/volume] in Serum or Plasma 3.9 mmol/L 3.4-5.1 [facility] Sodium [Moles/volume] in Serum or Plasma 136 mmol/L 136-145 [facility] Urea nitrogen [Mass/volume] in Serum or Plasma 24 mg/dL 8-23 [facility] Anion gap 3 in Serum or Plasma 10 mmol/L 8-15 [facility] Osmolality of Serum or Plasma by calculation 284 mosm/kg 275-300 [facility] Creatinine/Urea nitrogen [Mass Ratio] in Serum or Plasma 36 [facility] Calcium [Mass/volume] in Serum or Plasma 9.3 mg/dL 8.8-10.2 [facility] Glomerular filtration rate/1.73 sq M pre dicted among non-blacks [Volume Rate/Area] in Serum or Plasma by Creatinine-based formula (MDRD) 82 mL/min/1.73m2 >60 [facility] Glomerular filtration rate/1.73 sq M pre dicted among blacks [Volume Rate/Area] in Serum or Plasma by Creatinine-based formula (MDRD) >60 [facility] ID Date Data Source [id number] 08/17/2021 10:14:18 AM [facility] Name Value Range Interpretation Code Description Data Izabela rce(s) Supporting Document(s) Leukocytes [#/volume] in Blood by Automated count 8.2 10*3/uL 4-10 [facility] Erythrocytes [#/volume] in Blood by Automated count 3.76 10*6/uL 4.1- 5.3 L [facility] Hemoglobin [Mass/volume] in Blood 10.4 g/dL 11.5-15.5 L [facility] Hematocrit [Volume Fraction] of Blood by Automated count 32.1 % 3 6-45 L [facility] Erythrocyte mean corpuscular volume [Entitic volume] by Auto mated count 85.4 fL 80-96 [facility] Erythrocyte mean corpuscular hemoglobin [Entitic mass] by Automated count 27.6 pg 27-33 [facility] Erythrocyte mean corpuscular hemoglobin concentration [Mass/volume] by Automated count 32.3 g/dL 32.0-36.0 [facility] Erythrocyte distribution width [Ratio] by Automated count 15.4 % 11.5-14.5 [facility] Platelets [#/volume] in Blood by Automated count 306 10*3/uL 150-400 [facility] UnconfirmedConfirmed ID Date Data Source [id number] 08/16/2021 09:18:47 PM [facility] Name Value Range Interpretation Code Description Data Izabela rce(s) Supporting Document(s) Glucose [Mass/volume] in Capillary blood by Glucometer 200 mg/dL 70- 140 [facility] ID Date Data Source [id number] 08/16/2021 06:57:52 PM [facility] Value Range Interpretation Code Description Data Izabela rce(s) Supporting Document(s) Glucose [Mass/volume] in Capillary blood by Glucometer 178 mg/dL 70- 140 [facility] ID Date Data Source [id number] 08/16/2021 06:38:11 PM [facility] Value Range Interpretation Code Description Data Izabela rce(s) Supporting Document(s) Glucose [Mass/volume] in Capillary blood by Glucometer 139 mg/dL 70- 140 [facility] ID Date Data Source [id number] 08/16/2021 05:59:06 PM [facility] Value Range Interpretation Code Description Data Izabela rce(s) Supporting Document(s) Glucose [Mass/volume] in Capillary blood by Glucometer 115 mg/dL 70- 140 [facility] ID Date Data Source [id number] 08/16/2021 05:30:51 PM [facility] Value Range Interpretation Code Description Data Izabela rce(s) Supporting Document(s) Glucose [Mass/volume] in Capillary blood by Glucometer 81 mg/dL 70- 140 [facility] ID Date Data Source [id number] 08/16/2021 05:16:39 PM [facility] Value Range Interpretation Code Description Data Izabela rce(s) Supporting Document(s) Glucose [Mass/volume] in Capillary blood by Glucometer 63 mg/dL 70- 140 L [facility] ID Date Data Source [id number] 08/16/2021 05:16:39 PM [facility] Value Range Interpretation Code Description Data Izabela rce(s) Supporting Document(s) Glucose [Mass/volume] in Capillary blood by Glucometer 54 mg/dL 70- 140 [facility] ID Date Data Source [id number] 08/16/2021 11:51:30 AM [facility] Value Range Interpretation Code Description Data Izabela rce(s) Supporting Document(s) Glucose [Mass/volume] in Capillary blood by Glucometer 186 mg/dL 70- 140 [facility] ID Date Data Source [id number] 08/16/2021 08:05:04 AM [facility] Value Range Interpretation Code Description Data Izabela rce(s) Supporting Document(s) Glucose [Mass/volume] in Capillary blood by Glucometer 86 mg/dL 70- 140 [facility] ID Date Data Source [id number] 08/16/2021 08:54:19 AM [facility] Name Value Range Interpretation Code Description Data Izabela rce(s) Supporting Document(s) Leukocytes [#/volume] in Blood by Automated count 10.8 10*3/uL 4-10 [facility] Erythrocytes [#/volume] in Blood by Automated count 3.73 10*6/uL 4.1- 5.3 L [facility] Hemoglobin [Mass/volume] in Blood 10.1 g/dL 11.5-15.5 L [facility] Hematocrit [Volume Fraction] of Blood by Automated count 31.8 % 3 6-45 L [facility] Erythrocyte mean corpuscular volume [Entitic volume] by Auto mated count 85.4 fL 80-96 [facility] Erythrocyte mean corpuscular hemoglobin [Entitic mass] by Automated count 27.2 pg 27-33 [facility] Erythrocyte mean corpuscular hemoglobin concentration [Mass/volume] by Automated count 31.9 g/dL 32.0-36.0 [facility] Erythrocyte distribution width [Ratio] by Automated count 15.3 % 11.5-14.5 [facility] Platelets [#/volume] in Blood by Automated count 331 10*3/uL 150-400 [facility] Differential cell count method - Blood [facility] Neutrophils/100 leukocytes in Blood by Automated count 71 % [facility] Lymphocytes/100 leukocytes in Blood by Automated count 16 % [facility] Monocytes/100 leukocytes in Blood by Automated count 10 % [facility] Eosinophils/100 leukocytes in Blood by Automated count 2 % [facility] Basophils/100 leukocytes in Blood by Automated count 1 % [facility] Neutrophils [#/volume] in Blood by Automated count 7.66 10*3/uL 1.8-7 .0 [facility] Lymphocytes [#/volume] in Blood by Automated count 1.70 10*3/uL 1.2-4 .0 [facility] Monocytes [#/volume] in Blood by Automated count 1.10 10*3/uL 0-0.8 [facility] Eosinophils [#/volume] in Blood by Automated count 0.23 10*3/uL 0-0.5 [facility] Basophils [#/volume] in Blood by Automated count 0.09 10*3/uL 0-0.2 [facility] Nucleated erythrocytes/100 leukocytes [Ratio] in Blood by Automated count 0 /100{WBCs} 0-0 [facility] ID Date Data Source [id number] 08/16/2021 01:47:22 PM [facility] Name Value Range Interpretation Code Description Data Izabela rce(s) Supporting Document(s) Magnesium [Mass/volume] in Serum or Plasma 2.0 mg/dL 1.6-2.4 [facility] ID Date Data Source [id number] 08/16/2021 01:47:22 PM [facility] Name Value Range Interpretation Code Description Data Izabela rce(s) Supporting Document(s) Bicarbonate [Moles/volume] in Serum 30 mmol/L 22-29 [facility] Chloride [Moles/volume] in Serum or Plasma 100 mmol/L 98-107 [facility] Creatinine [Mass/volume] in Serum or Plasma 0.69 mg/dL 0.50-0.90 [facility] Glucose [Mass/volume] in Serum or Plasma 69 mg/dL 70-140 L [facility] Potassium [Moles/volume] in Serum or Plasma 3.9 mmol/L 3.4-5.1 [facility] Hemolyzed Sodium [Moles/volume] in Serum or Plasma 139 mmol/L 136-145 [facility] Urea nitrogen [Mass/volume] in Serum or Plasma 26 mg/dL 8-23 [facility] Anion gap 3 in Serum or Plasma 9 mmol/L 8-15 [facility] Osmolality of Serum or Plasma by calculation 291 mosm/kg 275-300 [facility] Creatinine/Urea nitrogen [Mass Ratio] in Serum or Plasma 38 [facility] Calcium [Mass/volume] in Serum or Plasma 8.6 mg/dL 8.8-10.2 L [facility] Glomerular filtration rate/1.73 sq M pre dicted among non-blacks [Volume Rate/Area] in Serum or Plasma by Creatinine-based formula (MDRD) 81 mL/min/1.73m2 >60 [facility] Glomerular filtration rate/1.73 sq M pre dicted among blacks [Volume Rate/Area] in Serum or Plasma by Creatinine-based formula (MDRD) >60 [facility] ID Date Data Source [id number] 08/16/2021 01:47:22 PM EDT [facility] Name Value Range Interpretation Code Description Data Izabela rce(s) Supporting Document(s) Phosphate [Mass/volume] in Serum or Plasma 4.1 mg/dL 2.5-4.5 [facility] ID Date Data Source [id number] 08/15/2021 09:13:08 PM EDT [facility] Value Range Interpretation Code Description Data Izabela rce(s) Supporting Document(s) Glucose [Mass/volume] in Capillary blood by Glucometer 209 mg/dL 70- 140 [facility] ID Date Data Source [id number] 08/15/2021 05:52:12 PM EDT [facility] Value Range Interpretation Code Description Data Izabela rce(s) Supporting Document(s) Glucose [Mass/volume] in Capillary blood by Glucometer 195 mg/dL 70- 140 [facility] ID Date Data Source [id number] 08/15/2021 12:52:57 PM EDT [facility] Value Range Interpretation Code Description Data Izabela rce(s) Supporting Document(s) Glucose [Mass/volume] in Capillary blood by Glucometer 151 mg/dL 70- 140 [facility] ID Date Data Source [id number] 08/15/2021 10:57:12 AM EDT [facility] Value Range Interpretation Code Description Data Izabela rce(s) Supporting Document(s) ED Provider Note [facility] [id number]/[id number]Q2gV9fGBY5MSeQQuKtCzIlPEL6 lbm [file] GUMLEVdkQD5ALC7sjbM3QP6EqRUhQCJkVTZhlDFvZGm6D14zlIByLCvoAP9RCUA+Quentin+Yb2XQUQcEIIe TNGkMkPnDTWBDmVvK3JoF4GVx7CnH5SxHI03eSbjvhEcTGozNN9RCR9rZXAmHVIUVS7EfLZlcC7gdzJ3 NEFaHDFICyNwJ27eqSLtHLWpYHZlUBIyDd2MDVHiU8 NfjmXygUckgvIkCIZzXSEBEG5PIXngdqNniZPeuHflGZ14qKttAI5VUf1XQmWqEC2cim4KoHDrTw2WVS M8IF7BNRMuKWEiANClBZK9NARjZfFgAFfuQKYuAZRoJMT7LTArGALdAL7IZrElLPMwNBV6VHIfLRVsHB Wkpa8PBQCnGNE7SFSkEbXmKBXiJAHtAVqcVGAfPEHb YUD0NVEtQIQtLO2ZHiUyXVKfIIT3MDxkZXIvDAZqez4GUTCtKBZjIodiBgWzYYFpZVOrXSlrQMNlXXG0 XDl9FVSrOOKkOW2YHoLyCOZsEEWhNUFvVFSvYDKxyr9ZSYWvKXCaULG5DWRmCXWjZNZjZUllWGSlKGY0 FRxjQVHwRPFhVP2MLbOwABQtQAQtJZYlBPDbEXQatl 1TYOQrKAXcIqH2WHSkPVSnBHOeMUnkWODbFWB8UNZ2DGUfEJSwJK4MZdEeGLYoSDUfBiMpCUQhOMBvub 2HCYZwQMAwWMM9WjHbHFWvWEZrGDycAYLgTDJ6WVugFGHmHHOkVO6LQtNkGDHoExP7BZUbSNSbHTIfyc 7DIQXlUKGsWNp3OcFfWMWyBICnUUnpIWXwWJX1Upm0 CBOgLSGkGM7NAsUqYYGxWhF6CBEcBRHkXZJwss7KPQCuTDKgOIU2VCRnXLVtBSCmDHzoEQAeWXP2Jas1 TTOnAJBcRZ8TMoClYSShXfZ1CAMsDMJnWHFiys3ZVSOmWOWjWya5EhDbFRHpMIDvAXhhSYYhQEG5OJJ0 PYFoDHBxIZ3KWdGsNIJeTcvqHKCzOFVnUQLupz5BEW WbHVGvMVG5EpDqRKNkFLRwUJjhXFZdWKI1XHe8FGEhWAKiHX8AZnPlNLQcJkn5LqHzSSHxXGUopk3VOQ SuQLSbBIAbFWMlYEQpJCKnPBpwYFWuHQW6CBJ7GUHaDUUmQK7SQnTrEZFkTzY7JdRfAHSsSVKfvj3OIE LtKUImDXx7OVTiAEEiXCHjSAkgXOTsFDZhQICzBNAe ZIDdLJ7VWtAdGHReNLV8MVwjZSNeWGXsij7RPTFcEJN4Lnn2XkMaFBZcPLCvTRfrPIOlHXIbWNr9CGIx VZJiMX3TBgPqSUGhKJQtIILmVDJsUWTdkr7IUFLvLBP6OsQ8OYByKLNuWFPdZTcyUPZhRYBcHPptNERa HCHvKC1KQeUgEAAoDYDhBJNlDEHwQSMfjy1MVYJwKJ Y2JYN8XsArLLYhLNPvJZzsBLZfZSP6LePdECBuNEIcCU7XXjHxSFRwPQR8KHQdTJRaFAJazj8ICDRdTC C1AXg3NfTsMPIpOYLsNNcgIXEbMDI5XMF3ELJzSHQiZZ0IBmAtEUKvRIFvWZsvLCLsPNDcej9VmDCghL zood6QJAvIYa9VtHgwEVJ2UJcoCl3omOE6MtDgGSFA Fd4RsrXrJSZsNLJLYYhmHIXsAVYkCJQzESB3HUdjHxN7DYEuCLE1KXJjPJQ2UnSeVFF1JdV1LCOuZuI2 CKOpD2M2VLZtYMTlCBy2QTYlHcHcDCP2NAd+PC3gZMp+Lp2Ra1ZgwuD5rrReXBn8ElD7Qn6CMBRSU9RG Cg== ID Date Data Source [id number] 08/15/2021 08:45:49 AM [facility] Name Value Range Interpretation Code Description Data Izabela rce(s) Supporting Document(s) Glucose [Mass/volume] in Capillary blood by Glucometer 90 mg/dL 70- 140 [facility] ID Date Data Source [id number] 08/14/2021 08:40:54 PM [facility] Name Value Range Interpretation Code Description Data Izabela rce(s) Supporting Document(s) Glucose [Mass/volume] in Capillary blood by Glucometer 220 mg/dL 70- 140 [facility] ID Date Data Source [id number] 08/14/2021 05:35:18 PM [facility] Name Value Range Interpretation Code Description Data Izabela rce(s) Supporting Document(s) Glucose [Mass/volume] in Capillary blood by Glucometer 134 mg/dL 70- 140 [facility] ID Date Data Source [id number] 08/14/2021 01:18:36 PM [facility] Value Range Interpretation Code Description Data Izabela rce(s) Supporting Document(s) Glucose [Mass/volume] in Capillary blood by Glucometer 392 mg/dL 70- 140 [facility] ID Date Data Source [id number] 08/14/2021 09:28:55 AM [facility] Value Range Interpretation Code Description Data Izabela rce(s) Supporting Document(s) Glucose [Mass/volume] in Capillary blood by Glucometer 122 mg/dL 70- 140 [facility] ID Date Data Source [id number] 08/14/2021 05:26:43 AM [facility] Value Range Interpretation Code Description Data Izabela rce(s) Supporting Document(s) Parathyrin.intact [Mass/volume] in Serum or Plasma 67 pg/mL 15-65 [facility] ID Date Data Source [id number] 08/14/2021 04:58:59 AM [facility] Value Range Interpretation Code Description Data Izabela rce(s) Supporting Document(s) Leukocytes [#/volume] in Blood by Automated count 11.3 10*3/uL 4-10 [facility] Erythrocytes [#/volume] in Blood by Automated count 3.39 10*6/uL 4.1- 5.3 L [facility] Hemoglobin [Mass/volume] in Blood 9.2 g/dL 11.5-15.5 L [facility] Hematocrit [Volume Fraction] of Blood by Automated count 28.9 % 3 6-45 L [facility] Erythrocyte mean corpuscular volume [Entitic volume] by Auto mated count 85.4 fL 80-96 [facility] Erythrocyte mean corpuscular hemoglobin [Entitic mass] by Automated count 27.3 pg 27-33 [facility] Erythrocyte mean corpuscular hemoglobin concentration [Mass/volume] by Automated count 32.0 g/dL 32.0-36.0 [facility] Erythrocyte distribution width [Ratio] by Automated count 15.2 % 11.5-14.5 [facility] Platelets [#/volume] in Blood by Automated count 333 10*3/uL 150-400 [facility] ID Date Data Source [id number] 08/14/2021 05:30:03 AM [facility] Name Value Range Interpretation Code Description Data Izabela rce(s) Supporting Document(s) Bicarbonate [Moles/volume] in Serum 27 mmol/L 22-29 [facility] Chloride [Moles/volume] in Serum or Plasma 100 mmol/L 98-107 [facility] Creatinine [Mass/volume] in Serum or Plasma 0.58 mg/dL 0.50-0.90 [facility] Glucose [Mass/volume] in Serum or Plasma 140 mg/dL 70-140 [facility] Potassium [Moles/volume] in Serum or Plasma 3.6 mmol/L 3.4-5.1 [facility] Sodium [Moles/volume] in Serum or Plasma 137 mmol/L 136-145 [facility] Urea nitrogen [Mass/volume] in Serum or Plasma 30 mg/dL 8-23 H [facility] Anion gap 3 in Serum or Plasma 10 mmol/L 8-15 [facility] Osmolality of Serum or Plasma by calculation 293 mosm/kg 275-300 [facility] Creatinine/Urea nitrogen [Mass Ratio] in Serum or Plasma 51 [facility] Calcium [Mass/volume] in Serum or Plasma 8.4 mg/dL 8.8-10.2 L [facility] Glomerular filtration rate/1.73 sq M pre dicted among non-blacks [Volume Rate/Area] in Serum or Plasma by Creatinine-based formula (MDRD) 86 mL/min/1.73m2 >60 [facility] Glomerular filtration rate/1.73 sq M pre dicted among blacks [Volume Rate/Area] in Serum or Plasma by Creatinine-based formula (MDRD) >60 [facility] ID Date Data Source [id number] 08/14/2021 05:30:03 AM [facility] Name Value Range Interpretation Code Description Data Izabela rce(s) Supporting Document(s) Magnesium [Mass/volume] in Serum or Plasma 2.4 mg/dL 1.6-2.4 [facility] ID Date Data Source [id number] 08/14/2021 05:30:03 AM [facility] Value Range Interpretation Code Description Data Izabela rce(s) Supporting Document(s) Phosphate [Mass/volume] in Serum or Plasma 2.6 mg/dL 2.5-4.5 [facility] ID Date Data Source [id number] 08/14/2021 05:45:33 AM [facility] Value Range Interpretation Code Description Data Izabela rce(s) Supporting Document(s) Calcidiol [Mass/volume] in Serum or Plasma 12 ng/mL >30 L [facility] ID Date Data Source [id number] 08/14/2021 02:56:05 AM [facility] Value Range Interpretation Code Description Data Izabela rce(s) Supporting Document(s) Glucose [Mass/volume] in Capillary blood by Glucometer 141 mg/dL 70- 140 [facility] ID Date Data Source [id number] 08/14/2021 02:01:45 AM [facility] Value Range Interpretation Code Description Data Izabela rce(s) Supporting Document(s) Glucose [Mass/volume] in Capillary blood by Glucometer 192 mg/dL 70- 140 [facility] ID Date Data Source [id number] 08/14/2021 12:30:16 AM [facility] Value Range Interpretation Code Description Data Izabela rce(s) Supporting Document(s) Glucose [Mass/volume] in Capillary blood by Glucometer 382 mg/dL 70- 140 [facility] ID Date Data Source [id number] 08/13/2021 11:29:43 PM [facility] Value Range Interpretation Code Description Data Izabela rce(s) Supporting Document(s) Glucose [Mass/volume] in Capillary blood by Glucometer 296 mg/dL 70- 140 [facility] ID Date Data Source [id number] 08/13/2021 08:39:43 PM [facility] Value Range Interpretation Code Description Data Izabela rce(s) Supporting Document(s) Glucose [Mass/volume] in Capillary blood by Glucometer 312 mg/dL 70- 140 [facility] ID Date Data Source [id number] 08/13/2021 06:04:45 PM [facility] Value Range Interpretation Code Description Data Izabela rce(s) Supporting Document(s) Glucose [Mass/volume] in Capillary blood by Glucometer 245 mg/dL 70- 140 [facility] ID Date Data Source [id number] 08/13/2021 01:08:39 PM [facility] Name Value Range Interpretation Code Description Data Izabela rce(s) Supporting Document(s) Glucose [Mass/volume] in Capillary blood by Glucometer 181 mg/dL 70- 140 [facility] ID Date Data Source [id number] 08/13/2021 01:11:22 PM [facility] Value Range Interpretation Code Description Data Izabela rce(s) Supporting Document(s) Magnesium [Mass/volume] in Serum or Plasma 2.3 mg/dL 1.6-2.4 [facility] ID Date Data Source [id number] 08/13/2021 01:11:22 PM [facility] Value Range Interpretation Code Description Data Izabela rce(s) Supporting Document(s) Phosphate [Mass/volume] in Serum or Plasma 2.6 mg/dL 2.5-4.5 [facility] ID Date Data Source [id number] 08/13/2021 01:29:33 PM [facility] Value Range Interpretation Code Description Data Izabela rce(s) Supporting Document(s) Albumin [Mass/volume] in Serum or Plasma by Bromocresol green (BCG) dye binding method 4.0 g/dL 3.5-5.2 [facility] Bilirubin.total [Mass/volume] in Serum or Plasma 0.3 mg/dL <1.2 [facility] Calcium [Mass/volume] in Serum or Plasma 8.0 mg/dL 8.8-10.2 L [facility] [facility] Chlor[facility] [Moles/volume] in Serum or Plasma 100 mmol/L 98-107 [facility] Creatinine [Mass/volume] in Serum or Plasma 0.72 mg/dL 0.50-0.90 [facility] Glucose [Mass/volume] in Serum or Plasma 226 mg/dL 70-140 [facility] Alkaline phosphatase [Enzymatic activity/volume] in Serum or Plasma 49 U/L 35-104 [facility] Potassium [Moles/volume] in Serum or Plasma 3.8 mmol/L 3.4-5.1 [facility] Protein [Mass/volume] in Serum or Plasma 5.8 g/dL 6.4-8.3 L [facility] Sodium [Moles/volume] in Serum or Plasma 137 mmol/L 136-145 [facility] Aspartate aminotransferase [Enzymatic activity/volume] in Serum or Plasma 15 U/L <32 [facility] Urea nitrogen [Mass/volume] in Serum or Plasma 30 mg/dL 8-23 [facility] Confirmed Osmolality of Serum or Plasma by calculation 297 mosm/kg 275-300 [facility] Confirmed Creatinine/Urea nitrogen [Mass Ratio] in Serum or Plasma 42 [facility] Confirmed Bicarbonate [Moles/volume] in Serum 26 mmol/L 22-29 [facility] Alanine aminotransferase [Enzymatic activity/volume] in Seru m or Plasma 12 U/L <33 [facility] Anion gap 3 in Serum or Plasma 11 mmol/L 8-15 [facility] Glomerular filtration rate/1.73 sq M pre dicted among non-blacks [Volume Rate/Area] in Serum or Plasma by Creatinine-based formula (MDRD) 80 mL/min/1.73m2 >60 [facility] Glomerular filtration rate/1.73 sq M pre dicted among blacks [Volume Rate/Area] in Serum or Plasma by Creatinine-based formula (MDRD) >60 [facility] ID Date Data Source [id number] 08/13/2021 09:05:16 AM [facility] Value Range Interpretation Code Description Data Izabela rce(s) Supporting Document(s) Glucose [Mass/volume] in Capillary blood by Glucometer 131 mg/dL 70- 140 [facility] ID Date Data Source [id number] 08/13/2021 03:16:55 AM [facility] Value Range Interpretation Code Description Data Izabela rce(s) Supporting Document(s) Glucose [Mass/volume] in Capillary blood by Glucometer 80 mg/dL 70- 140 [facility] ID Date Data Source [id number] 08/12/2021 11:33:06 PM [facility] Value Range Interpretation Code Description Data Izabela rce(s) Supporting Document(s) Glucose [Mass/volume] in Capillary blood by Glucometer 282 mg/dL 70- 140 [facility] ID Date Data Source [id number] 08/12/2021 09:52:13 PM [facility] Value Range Interpretation Code Description Data Izabela rce(s) Supporting Document(s) Glucose [Mass/volume] in Capillary blood by Glucometer 354 mg/dL 70- 140 [facility] ID Date Data Source [id number] 08/12/2021 06:08:49 PM [facility] Name Value Range Interpretation Code Description Data Izabela rce(s) Supporting Document(s) Glucose [Mass/volume] in Capillary blood by Glucometer 302 mg/dL 70- 140 [facility] ID Date Data Source [id number] 08/13/2021 06:43:00 AM [facility] Service Cmnt XXX-Imp : NoneMicroorganism XXX Cult : Urine NEGATIVE for L. pneumophila serogroup 1 antigen by immunochromatographic assay. This test does not detect infections due to other L. pneumophila serogroups or to other Legionella species. Name Value Range Interpretation Code Description Data Izabela rce(s) Supporting Document(s) ID Date Data Source [id number] 08/12/2021 03:48:13 PM [facility] Name Value Range Interpretation Code Description Data Izabela rce(s) Supporting Document(s) Glucose [Mass/volume] in Capillary blood by Glucometer 313 mg/dL 70- 140 [facility] ID Date Data Source [id number] 08/12/2021 12:12:45 PM [facility] Name Value Range Interpretation Code Description Data Izabela rce(s) Supporting Document(s) Glucose [Mass/volume] in Capillary blood by Glucometer 152 mg/dL 70- 140 [facility] ID Date Data Source [id number] 08/12/2021 09:16:47 AM [facility] MR BRAIN WITHOUT CONTRAST [id number] RES ULTInterpreted by:Alena Cho MDORDERING CLINICAL INFORMATION: Neuro deficit, acute, stroke suspectedCOMPARISON: CTA head and neck dated 08/09/2021. PROCEDURE : Multiple MR sequences in multiple planes without administration of IV contrast.FINDINGS:Several foci of restricted diffusion in the left frontoparietal region consistent with acute infarctions. There are corresponding T2 and FLAIR hyperintensities consistent with cytotoxic edema.No abnormal areas of susceptibility artifact on susceptibility weighted imaging to suggest acute intracranial hemorrhage.Chronic lacunar infarctions in the left caudate basal ganglia. There are scattered areas of subcortical and periventricular white matter T2 FLAIR hyperintensities. This is a nonspecific finding, but can be seen in the setting of chronic microvascular ischemic disease. Otherwise no cerebral edema or other signal abnormality of the brain parenchyma.Moderate generalized cerebral atrophy with commensurate prominence of the sulci and ventricles. The basal cisterns are patent. There is no shift of the midline structures. No extra-axial fluid collections.The cerebellar tonsils are normally positioned. The pituitary gland is normal in size.Small amount of layering fluid within the left mastoid air cells. The remainder of the visualized paranasal sinuses and mastoid air cells are well aerated.IMPRESSION:1. Foci of restricted diffusion in the left frontoparietal region, consistent with acute infarctions.2. Chronic lacunar infarctions in the left caudate basal ganglia.3. Moderate generalized cerebral atrophy.Small amount of fluid within the left mastoid air cells. Critical findings were discussed with Dr. Della Tipton by Dr. Magaña at 10:44 PM on 08/11/2021.This document has been electronically signed by COLLEEN Cho on 08/12/2021 9:14 AM Name Value Range Interpretation Code Description Data Izabela rce(s) Supporting Document(s) ID Date Data Source [id number] 08/12/2021 08:53:42 AM [facility] Value Range Interpretation Code Description Data Izabela rce(s) Supporting Document(s) Glucose [Mass/volume] in Capillary blood by Glucometer 115 mg/dL 70- 140 [facility] ID Date Data Source [id number] 08/12/2021 03:39:44 AM [facility] Value Range Interpretation Code Description Data Izabela rce(s) Supporting Document(s) Glucose [Mass/volume] in Capillary blood by Glucometer 183 mg/dL 70- 140 [facility] ID Date Data Source [id number] 08/11/2021 11:45:41 PM [facility] Value Range Interpretation Code Description Data Izabela rce(s) Supporting Document(s) Glucose [Mass/volume] in Capillary blood by Glucometer 219 mg/dL 70- 140 [facility] ID Date Data Source [id number] 08/11/2021 08:16:40 PM EDT [facility] Name Value Range Interpretation Code Description Data Izabela rce(s) Supporting Document(s) Glucose [Mass/volume] in Capillary blood by Glucometer 204 mg/dL 70- 140 [facility] ID Date Data Source [id number] 08/11/2021 03:33:04 PM [facility] Name Value Range Interpretation Code Description Data Izabela rce(s) Supporting Document(s) Glucose [Mass/volume] in Capillary blood by Glucometer 212 mg/dL 70- 140 [facility] ID Date Data Source [id number] 08/11/2021 02:47:51 PM [facility] XR CHEST FRONTAL ONLY [id number] RESULTI nterpreted by:Jose Whatley III, [facility] INFORMATION: Exam: XR Chest Exam date and time: 08/11/2021 1:44 PM Age: 81 years old Clinical indication: Chronic obstructive pulmonary disease with (acute) exacerbation; Other: Respiratory distress with tachycardia and hypertension TECHNIQUE: Imaging protocol: XR of the chest. Views: 1 view. Total images: 3 COMPARISON: CT THORAX WITH CONTRAST [id number] 08/10/2021 5:32 AM FINDINGS: Lungs: Coarse chronic pulmonary markings. Bilateral pulmonary opacities are again noted and appear unchanged. There is blunting of the left costophrenic angle, likely indicating chronic pleural thickening. Pleural spaces: See "Lungs" finding. Heart/Mediastinum: Exuberant mitral annular calcifications are noted. Heart size is stable when compared to the prior exam. Vasculature: Atherosclerosis is evident. Bones/joints: Osseous structures are unchanged from the prior exam. IMPRESSION: 1. Coarse chronic pulmonary markings. 2. Bilateral pulmonary opacities are again noted and appear unchanged. 3. There is blunting of the left costophrenic angle, likely indicating chronic pleural thickening. THIS DOCUMENT HAS BEEN ELECTRONICALLY SIGNED BY JOSE WHATLEY MDThis document has been electronically signed by Jose Whatley III, MD on 08/11/2021 2:47 PM Name Value Range Interpretation Code Description Data Izabela rce(s) Supporting Document(s) ID Date Data Source [id number] 08/11/2021 03:00:46 PM [facility] Name Value Range Interpretation Code Description Data Izabela rce(s) Supporting Document(s) Lactate [Moles/volume] in Serum or Plasma 1.5 mmol/l 0.5-2.2 [facility] ID Date Data Source [id number] 08/11/2021 01:08:25 PM EDT [facility] Name Value Range Interpretation Code Description Data Izabela rce(s) Supporting Document(s) [facility] JOMBOj1zZoYOLcEma6GjGqDnATNbYY9tmbv4J8W9kOSxK3YhjSRim0sfZ9XqP4XfJWPkFETSCV5FjHZq jb2 [file] tFPyf/vBA3xl/Pv5J/AUTOMATIC VULCANIZING OPERATOR/f2ok+Xz0y77JkoYL+VwO [file] 81yJ0THa7ua2/11Rdnr3+++nB9lM639m/21U3l84+W 33x6/4TEj2jfvze25cyFq0/hDva10etAE4/7nrd6x193/jdavv+4pYQaK1e2ttVPe2h//d3bNx8/f//m 8S/oven dumper/050dMos1++fho3GKXu/S/idSj791mKl+8+3IL+5kb7Mi4ou/ry6y/e/Zd33/qAgrdP8JI3Y++/ nFho5SjvzHolL+8ebz++f/b3+YjfPEfyxXePdx+eLf 3Tuy+dvz1pqF4h4ooSaqEu43FoQa90hcmXb2m/4QBGw26+9/b9b96/iWbx5iKcy+ePT49/mzEwe0Ljn7 GnkP7G/bdWct//Q16119JT5ooaw89t0Obt/+nx1W+u7pBaFg6njrwIn5SR/X/FgieKR16ogchKm+nx8T piX393+fxvSMsBb+866u9ax0//w59//OHfHv/1/zy+ +8Mf//j9n//8w/d//MXj8+9/+pMNb8j1684j21///iJrka42L0B+yjtXPrvWZ0/t5usv/0dOlFxBE7m6 8cdf/FVnr8mMlhmj9X+/E706reeO15/f/l9h+t7vMPc/Ap17akyAknXz+s0X+n7FALu7z5xIo9OtljV2 evv8Yh/Sv1HzGMejLj6+8O8/POVzC+uzx+Ny8c9y1L nQZ6s38ADL9sLZDbeX1q1Vq1rbx/Xo+/z+rr8uKZrrAUZiD5NSB07r26039Y/+8fHn7//hv2wsrzpGK7 hA90U//uXnrQfvqQ/9aKAuua7y6Avo/uOHP/+vv+z4vf6gurY/K33JG3+x31H269/sTI4del48/oc//f To8c1A64hZl9qP++dPv/rnT7/R13njQgwbmu9rixEg de+hN91iA8x+i56x7eGp+dzM+/uNvoX5c5/58ZefHt//7x/+8tefzXlvdf/yP3/9lW2inLyzc/f8d/o/ f/7Xv//Y8eZhqzAZi6//4fZR0tk+2+//5++//8sfvv/gXw5b87M28jxr02++aD228w/+9b1HiB//9Kcf UutpyUJ13CLq8k/+9PvPhorZ/YSQUeHmf/rh9//9pz /8/rePop49zfH+ncrcN8Hyr/aA08i9r42+jwo5646lhauP/NWX97L+eHr8j2w/0///M2o9spZqvkU//f 1/++FRHn/438dWYNCwpeXYpBZwWQifw2o4Iu+I2z3xst68pXTdCP/6p/7Vx8/ffXx++dm09d7yj6794I u5ylfh7whs/eD/OV13aQ1LMV0ka7RqDXToJtUrRQ3x bajlOYJqGO0txhs4W4LluQpmNFdMICKyPy7zoDCtHF8RHIC9MAgbWQFkMTVgN4ElrW6cW65onZHgDdSb XPRCKS1HhiH3UBK4MCO7PSGkEyHbRAQqKM65NKDtXPYCJb6jttPzRonFAeWgGX5xumf9D8O0aNMeG535 yIeskqAkJU0Sp0NpdVKhRK4EnOLykMQnYFDbLLXfH2 frb9YdQBatJUIUCe9pbaAwVnzDYnEcQX5rwbw5X7E0dLzmqoBvXXOEKWkhYppeET4slTthwmlyH8EahU XlGJUqM5QjHYYlh86FHOQmGTzADkEjPcPgDURqPPLiWXpkQgSxNIOcGXXdVAVfIB4YdWAtLFGuVVXTSZ koWysrZRIyqX3ctLYQm9OaGLFPUQZUMEMORHVSANSY YWOlAWebZFYxNVZwN6PuprDiuTTjDSMHLPgcIuilMKUveG5wbHjwG7MePXI0v9QhTI9MQ3EtWFPsGTPA HRW9b6SgXTLfbbgnripoQyTyWNIgJXHaAENeVY5Jei7gbGAndoIxNWOBYMpaSgliKN3pnPtwwunqQ3Pd aWVzKSA+DoXeKN9ssb6+DpIzOGCpXta3BBNdWCykMZ GbBBJeRJTzW6auOKHsUgTnFENtIwMsMH0Ne8EqbZOtAg0kqzPsJojEhWIyKyzlRYVkSSAsRCObWqTDIF OeKXCgUGNoTVR8BBCeSQLxPMacHNZjKRm1PcT3BSTeUHJfJV6sEsYwHYPbJahxOetsQFGvEQTlzoWTII IaDIF8ZwOpUfOyTPMbRSXeCJhrKACtVDYjLDVrZYY8 POL1VOMlAiVoRLAjIVUaFCXjBLNqATHroeDKNRCpEPHfBOK6JIQhFPEoQRToROpdHZMsAYCvORwyDPDw WYPfDX4oSlEwGZBiJLFgEMvsGVIfPMNbnvVJAQOnQUQrQLTuOVDeWGXyCZMcPUiyZTYoEIOeGGUgGLNq OBQqUL8xVeGvXTKpRLR6VYCjMXZoWMUhglSOFZUbZJ BfVLt6VRPeOBKsOBSzAZsdTDKmJXRmFVL7NMAzBYMrNM3aYcMoVMYnCDW8ClXxOVVkSWFgksDRKBXaPD OzNJP3IrPiZAGuEHZzUTdcJXFrPGJpBTwaQEXnBPAoMH7vIgWtOIZmDQVuPMlhIRZfISCqvqHOOPBxNW ZaUGXpGuReXCKsDRTmVViiVWYiJCe7YfI2IKOiTTYt AW8dVvHwNBQrXGC4YHjvRHZrDFAsfhXNGOCnFKIiUYkxTEAiSUCgTCSmFPweVLNsTCVvCAZ9CFGfKCMi WR0mBkTkULGrTOYdMQYnYjI8CjNcCfFTrHJlyHcczyz8VFdqK8p5FWXePNrnOO7bxuLtOICaIhjdTw3t wHS2XUPzPygKPx8Ri8NnjmC2vvIcZov0IdCdYeTyNM0Q ID Date Data Source [id number] 08/11/2021 02:09:09 PM EDT [facility] Name Value Range Interpretation Code Description Data Izabela rce(s) Supporting Document(s) Cardiactroponin T pnl SerPlHS 39 ng/L <14 [facility] ID Date Data Source [id number] 08/11/2021 02:09:09 PM [facility] Name Value Range Interpretation Code Description Data Izabela rce(s) Supporting Document(s) Bicarbonate [Moles/volume] in Serum 25 mmol/L 22-29 [facility] Chloride [Moles/volume] in Serum or Plasma 101 mmol/L 98-107 [facility] Creatinine [Mass/volume] in Serum or Plasma 0.66 mg/dL 0.50-0.90 [facility] Glucose [Mass/volume] in Serum or Plasma 226 mg/dL 70-140 [facility] Potassium [Moles/volume] in Serum or Plasma 4.0 mmol/L 3.4-5.1 [facility] Sodium [Moles/volume] in Serum or Plasma 139 mmol/L 136-145 [facility] Urea nitrogen [Mass/volume] in Serum or Plasma 17 mg/dL 8- [facility] Anion gap 3 in Serum or Plasma 13 mmol/L 8-15 [facility] Osmolality of Serum or Plasma by calculation 297 mosm/kg 275-300 [facility] Creatinine/Urea nitrogen [Mass Ratio] in Serum or Plasma 26 [facility] Calcium [Mass/volume] in Serum or Plasma 8.3 mg/dL 8.8-10.2 L [facility] Glomerular filtration rate/1.73 sq M pre dicted among non-blacks [Volume Rate/Area] in Serum or Plasma by Creatinine-based formula (MDRD) 82 mL/min/1.73m2 >60 [facility] Glomerular filtration rate/1.73 sq M pre dicted among blacks [Volume Rate/Area] in Serum or Plasma by Creatinine-based formula (MDRD) >60 [facility] ID Date Data Source [id number] 08/11/2021 02:09:09 PM [facility] Name Value Range Interpretation Code Description Data Izabela rce(s) Supporting Document(s) Magnesium [Mass/volume] in Serum or Plasma 2.0 mg/dL 1.6-2.4 [facility] ID Date Data Source [id number] 08/12/2021 09:05:49 PM [facility] Name Value Range Interpretation Code Description Data Izabela rce(s) Supporting Document(s) Cholesterol [Mass/volume] in Serum or Plasma 237 mg/dL <200 [facility] Triglyceride [Mass/volume] in Serum or Plasma 139 mg/dL <150 [facility] Cholesterol in HDL [Mass/volume] in Serum or Plasma 72 mg/dL >50 [facility] Cholesterol in LDL [Mass/volume] in Serum or Plasma by calcu lation 137 mg/dL <100 [facility] Cholesterol in VLDL [Mass/volume] in Serum or Plasma by calc ulation 28 mg/dl 16-42 [facility] Cholesterol non HDL [Mass/volume] in Serum or Plasma 165 mg/dL <130 [facility] ID Date Data Source [id number] 08/11/2021 01:08:56 PM [facility] Value Range Interpretation Code Description Data Izabela rce(s) Supporting Document(s) Glucose [Mass/volume] in Capillary blood by Glucometer 218 mg/dL 70- 140 [facility] ID Date Data Source [id number] 08/11/2021 11:43:20 AM [facility] Value Range Interpretation Code Description Data Izabela rce(s) Supporting Document(s) Glucose [Mass/volume] in Capillary blood by Glucometer 149 mg/dL 70- 140 [facility] ID Date Data Source [id number] 08/11/2021 10:27:30 AM [facility] Value Range Interpretation Code Description Data Izabela rce(s) Supporting Document(s) pH of Arterial blood 7.41 7.38-7.44 [facility] Carbon dioxide [Partial pressure] in Arterial blood 49 mm[Hg] 35-40 [facility] Oxygen [Partial pressure] in Arterial blood 145 mmHg 95-100 [facility] Oxygen saturation in Arterial blood 99 % 94-100 [facility] Base excess in Arterial blood by calculation 6 [facility] Carbon dioxide, total [Moles/volume] in Arterial blood 32 mmol/L [facility] Oxygen/Inspired gas setting [Volume Fraction] Ventilator [facility] ID Date Data Source [id number] 08/11/2021 08:24:10 AM [facility] Value Range Interpretation Code Description Data Izabela rce(s) Supporting Document(s) Glucose [Mass/volume] in Capillary blood by Glucometer 103 mg/dL 70- 140 [facility] ID Date Data Source [id number] 08/11/2021 07:48:12 AM [facility] Value Range Interpretation Code Description Data Izabela rce(s) Supporting Document(s) EKG [facility] WHJRWt1xPyWUYjVsc4PwJjVjGZMyYZ0vqeg1S4I0gVQtQ9YqwXZck2caU5AiX2WcLRZuXTPMJS9BkUJs jb2 [file] 523wp+ibgh42T/x27SGs4iolu/fPfudy/ibqbh10sW b16+vwOI71qtoni93y8u33+8//D24+8+e/P+32dnpVfo5lL+m+8+oj711eY6g6x579m/7ggZVlTT1uzI b9mvpdb1Hrwkw3825+Oa66aNo/3n65wig4u02pYk7w107aa3g7+/+sO3q1gAcq15/+brVx+/e//m5fs3 726LfPfVq/cvr7/5+glz9pd5Qz/+i7zvf+4776/fvn j99EQJ57/56yNfu6rb8jf2032h6w+K+XDb5q5aqp/q7f1sy8647/Pm8258+rkM845+8+tp4kt9j71mhh tKN986/C+fW7H1n49+cruzevPqiw+PdO8+fUor7csu710++fjyL6++d7V7T1wpWkVA62JpXMh+86303/ h7998kablx+p8+vLz6/iSpo4873cb4/2UcV9akwK1/ 6Zd//+nPP//4h5d/+8+X73/64x9/+Austin/zhj//w8sUPv/z04x9f/vXvyvrXv3/50y8v+9e1/lrf/vy8 r8+v/vBo9292Z2ksMwfV/Pzzr//ABsoytY5EI/3z99C3+4bY7eF62p+FZbA81k8/dY7sKfgdZud4ticE 85ApqvRzrii21hqlY+jx9NgCo/FosYmoeuu5H9b/47 //+AKFic0HJ33+/O7NFy+foex74v4GM7cZtdZxr+15imm2GUDvjfsl3V/5lhZW/zipLFejifrT5/D9j7 /89R9f/lnQW005jd9zh/ykqludk23+y6e5h+6xnO9xfgn/ff/y0y9//fHP//tvam/ZhzGfs7/BVOpm/T T30P3z+w8vf/iPR91/+lXkx1ckCzt+ux0uLZi//vjr f/63g84bsSOcKfJc6r/4/zS1GvW2KBbU+zMsIqdIhgz5wic4hthC7mvU6y/28eWH//PjX/93wfdust3C /qp5R824Z7H3dIhJ+PCff/7Xv//k6XgPX/748w9/fHrD+0n/+of/+P0Pf/nph18+aSEpWb3cztf5/fmW +vXHf/vbtMeI7//0p58//1g/0Udzv/wU8t8J4stX1x hNwa3/+OPv/+cvP/3+Ub3Pv/ujk6o71/ir+SIWO96CXfE7/i9/pzV7H1t++fsZv0doMe1n4pir5+Pwh8 85BNz/of//R+0PG12XJkM++8P/+UXyjPqx61/4po2Y/IwVH+9fny96L878hLLt0ynd3WP+0MLrW365w/ nN+y/parlor chaperone/9PIkM9i932iPt08703+6ilVsfmfsKbW3n /L54e9lKCcItHYM8elOifRxnvmIdDaeTXTbvBRLvRur4RL3XgCUcUEMbT2P2HZGydk5kRUMpAWYnaDHn BwSuCXAHLT7VzYHtAX0DZNs9ZCSqMYEsRcUkTBHytcX0BNOiLDBrZOYeH8KylxXtsIVqHVTtMh8+ZW5k x0RqSwUyQZIxTgw1JH7ZqMGlXS2PdXFgsD0xbcPxM8 08gtQuIMLlFsybo7GlFNeyZVUOAT8HKIS6KFC4TYMzFk4+WZ0tq5IzWqCuJHUaEtj4VV8VuHAer2YxNN 8MX2KxIGXbORWIIIE9c4AxQLByosvxhtuaB7JyWZU4bD6tWBY4RQRyDRbvLLWsRJhdUrA6JPknXQntER BnORGfNKItTIYgPHw9zBThVZ8TL3DfKHDlRBIXNSJo wzQfBl9aHJSIIIYWEbtzUSPFDayNQOLgMcq8IJXwWnvyI2R0MtmoL0RqMP0HE8LwNCJmJSIMJBUaabHl KO2SzzFuzQ6kWBsVLYZFWBoVTYakKuX7b17dygIEWLWqNXSnKOmeILViIVTvIVJzZDClJFFjVLLbAECp QV4OB2BhLOWhUKVISZS4e2GuXWDjncithnbjQt7vuz RvYmo+YbovHLVaz8IsQSpmS0R2kALfU4TbH0IgAB9NtLLsTNyrGOChOFAlKKOeN373zlIxUV8+ZW5kb2 TyAjnrUDHQUGFlLZRvMXLmASI7GlUuGXKeTLLuVSWgZcN8DoFiKfBJWGTuMYF9JwU9GeFtGCToEYBcOF euEAItWTnwJKG4ZCCmVPIbPA5jZiJtECXfZtOqTAGl WDRrLGYinuOVXSJwPLWoNXXvFPL0GFZwHZWxGYtqUMSfPXSrNGX1NYNtPJRfMM1wStOrAFDqQVNlAdwn PXXjPDIbpdGUIMOaLWWgLDM0IjCvVQNuHNUqSMxgHUSuTLInZge2GZHaJFGyLR4gDtWxNUNmVRJ7HGom MDAwMDAgbiAKMDAwMDAwMDUyMyAwMDAwMCBuIAowMD UsUNCtOuUoDRPtCAVvXR9wHaRbKDEjTUR1YHVgZOFuQPZaxfIJEUSrKRDiFSx4BIFmUMVdYITzOTpmLT YaCYOfYNQ5UKYyTAImNJ7iGiGaRVEiKZWjOKNaEZPiYYTnhjFUYNJuHDGyEUK7MNMoLKQaXHFvPQmeAB UeHEBeAwn6FAQiVNDqVI5pLiSbWBJmIIV7TODvTAYa KDEoptFCSJTeWWH6OUupFJTqKBSdYTXgJFqcJDKlBKIoKtU4GEDlYJYoQB0nBrNfPETkLQR0YsYwYMGz JSCfjiFKDKWoDSXxNHK0RsZgBUSxZVHcDCjtRKSgBHFeOJQmWIQ7CCU7ILZuTbRdENpwMWGLLXyLY0Py unWcPkXFU8gfPv7hErQoPORLF9Hyf3VcGONjZOKJMn8+TsP1CTJ9tQDqTwz8TpAoRVdmLDQNZk== ID Date Data Source [id number] 08/11/2021 03:20:02 AM EDT [facility] Name Value Range Interpretation Code Description Data Izabela rce(s) Supporting Document(s) Glucose [Mass/volume] in Capillary blood by Glucometer 143 mg/dL 70- 140 [facility] ID Date Data Source [id number] 08/10/2021 11:40:37 PM EDT [facility] Name Value Range Interpretation Code Description Data Izabela rce(s) Supporting Document(s) Glucose [Mass/volume] in Capillary blood by Glucometer 180 mg/dL 70- 140 [facility] ID Date Data Source [id number] 08/10/2021 02:43:08 PM EDT [facility] Cmnt XXX-Imp : NoneMicroorganism XXX Cult : Polymerase chain reaction assay was POSITIVE for methicillin-SUSCEPTIBLE Staphylococcus aureus (MSSA) AND NEGATIVE for methicillin resistant Staphylococcus aureus (MRSA). Name Value Range Interpretation Code Description Data Izabela rce(s) Supporting Document(s) ID Date Data Source [id number] 08/11/2021 07:17:06 AM EDT [facility] Cmnt XXX-Imp : NoneMicroorganism XXX Cult : 7,000 col/mlIndigenous microorganisms. Name Value Range Interpretation Code Description Data Izabela rce(s) Supporting Document(s) ID Date Data Source [id number] 08/15/2021 11:37:40 AM EDT [facility] Cmnt XXX-Imp : R ACMicroorganism XXX Cult : No growth 5 days Name Value Range Interpretation Code Description Data Izabela rce(s) Supporting Document(s) ID Date Data Source [id number] 08/15/2021 11:37:40 AM EDT [facility] Cmnt XXX-Imp : L ACMicroorganism XXX Cult : No growth 5 days Name Value Range Interpretation Code Description Data Izabela rce(s) Supporting Document(s) ID Date Data Source [id number] 08/10/2021 11:43:43 AM [facility] Name Value Range Interpretation Code Description Data Izabela rce(s) Supporting Document(s) Magnesium [Mass/volume] in Serum or Plasma 1.8 mg/dL 1.6-2.4 [facility] QA FLAGS AND/OR RANGES MODIFIED BY [facility] ON 08/10 AT 2233 ID Date Data Source [id number] [facility] WRISTMicroorgan ism XXX Cult : No growth 5 days Name Value Range Interpretation Code Description Data Izabela rce(s) Supporting Document(s) ID Date Data Source [id number] 08/11/2021 10:16:29 AM [facility] Cmnt XXX-Imp : NoneMicroorganism XXX Cult : NO Methicillin resistant Staphylococcus aureus isolated Name Value Range Interpretation Code Description Data Izabela rce(s) Supporting Document(s) ID Date Data Source [id number] 08/09/2021 10:01:19 PM [facility] Name Value Range Interpretation Code Description Data Izabela rce(s) Supporting Document(s) Bicarbonate [Moles/volume] in Serum 32 mmol/L 22-29 H [facility] Chloride [Moles/volume] in Serum or Plasma 100 mmol/L 98-107 [facility] Creatinine [Mass/volume] in Serum or Plasma 0.73 mg/dL 0.50-0.90 [facility] Glucose [Mass/volume] in Serum or Plasma 230 mg/dL 70-140 H [facility] Potassium [Moles/volume] in Serum or Plasma 5.1 mmol/L 3.4-5.1 [facility] Sodium [Moles/volume] in Serum or Plasma 139 mmol/L 136-145 [facility] Urea nitrogen [Mass/volume] in Serum or Plasma 24 mg/dL 8-23 H [facility] Anion gap 3 in Serum or Plasma 7 mmol/L 8-15 L [facility] Osmolality of Serum or Plasma by calculation 299 mosm/kg 275-300 [facility] Creatinine/Urea nitrogen [Mass Ratio] in Serum or Plasma 33 [facility] Calcium [Mass/volume] in Serum or Plasma 8.5 mg/dL 8.8-10.2 L [facility] QA FLAGS AND/OR RANGES MODIFIED BY [employer] UPDATE ON 08/10 AT 2233 Glomerular filtration rate/1.73 sq M pre dicted among non-blacks [Volume Rate/Area] in Serum or Plasma by Creatinine-based formula (MDRD) >6 0 [facility] Glomerular filtration rate/1.73 sq M pre dicted among blacks [Volume Rate/Area] in Serum or Plasma by Creatinine-based formula (MDRD) >60 [facility] ID Date Data Source [id number] 08/09/2021 10:01:19 PM EDT [facility] Name Value Range Interpretation Code Description Data Izabela rce(s) Supporting Document(s) Magnesium [Mass/volume] in Serum or Plasma 2.0 mg/dL 1.6-2.4 [facility] QA FLAGS AND/OR RANGES MODIFIED BY [employer] UPDATE ON 08/10 AT 2233 ID Date Data Source [id number] 07/28/2021 11:06:00 PM EDT [facility] Name Value Range Interpretation Code Description Data Izabela rce(s) Supporting Document(s) SARS coronavirus 2 RNA [Presence] in Res piratory specimen by MAXIMILIAN with probe detection NEGATIVE [facility] This lab was ordered by [facility] a nd reported by [facility]. ID Date Data Source [id number] 05/31/2021 11:51:00 AM EDT [facility] ([facility] Name Value Range Interpretation Code Description Data Izabela rce(s) Supporting Document(s) CPK Creatine Phosphokinase 37 U/L 26-192 Samantha l (applies to non-numeric results) [facility] ([facility] ) CK-MB Value Mass 3.1 ng/mL Normal (applies to non-numeric results) [facility] ([facility] MB/CK Relative Index 8.38 Above high normal [facility] ([facility] <content>DIAGNOSIS CRITERIA</content>
<content>MMB ng/ml Relative Index (RI)</content>
<content>NON-AMI < or = 5 N/A</content>
<content>ALANIS ZONE > 5 < or = 4</content>
<content>AMI > 5 > 4</content>
<content></content> Troponin I 0.11 ng/mL Above high normal [facility] ([facility] <content>Troponin I Reference Interval f or Siemens [place] LOCI:</content>
<content></content>
<content>99th Percentile= 0.00-0.045 ng/ml</content>
<content></content>
<content>Risk Stratification:</content>
<content><= 0.10 ng/ml Decreased Risk for Adverse Clinical</content>
<content>Events.</content>
<content>0.10-1.50 ng/ml Increased Risk for Adverse Clinical</content>
<content>Events. Evaluation of additional</content>
<content>criterion and/or repeat testing in 2-6</content>
<content>hours is suggested to rule out myocardial</content>
<content>damage.</content>
<content>>= 1.50 ng/ml Indicative of Myocardial Injury.</content>
<content></content> ID Date Data Source [id number] 05/31/2021 09:48:00 AM EDT [facility] ([facility] Name Value Range Interpretation Code Description Data Izabela rce(s) Supporting Document(s) Prothrombin Time 13.9 s 12.5-14.3 Normal (applies to non-numeric results) [facility] ([facility] Partial Thromboplastin Time 30.9 s 24.2-38.5 Norm al (applies to non-numeric results) [facility] ([facility] ) Inr 1.05 Normal (applies to non-numeric resul ts) [facility] ([facility] THERAPUTIC HUMAN INR VALUES INDICATIONS NORMAL RANGES PROPHYLAXIS/TREATMENT OF: VENOUS THROMBOSIS 2.0-3.0 PULMONARY EMBOLISM 2.0-3.0 PREVENTION OF SYSTEMIC EMBOLISM FROM: TISSUE HEART VALVES 2.0-3.0 ACUTE MYOCARDIAL INFARCTION 2.0-3.0 VALVULAR HEART DISEASE 2.0-3.0 ATRIAL FIBRILLATION 2.0-3.0 MECHANICAL VALVES(HIGH RISK) 2.5-3.5 RECURRENT MYOCARDIAL INFARCTION 2.5-3.5 ID Date Data Source [id number] 05/31/2021 09:17:00 AM EDT [facility] ([facility] Name Value Range Interpretation Code Description Data Izabela rce(s) Supporting Document(s) Venous Partial Pressure Co2 64.5 mmHg 38.0-50.0 Above high normal [facility] ([facility] Venous PH 7.341 units 7.330-7.430 Normal (applies to non-numeric res ults) [facility] ([facility] Venous Partial Pressure O2 40.2 mmHg 30.0-50.0 Samantha l (applies to non-numeric results) [facility] ([facility] ) Venous Total Co2 36.1 meq/L 24.0-28.0 Above high normal M [facility] ([facility] Venous Standard Hco3 29.8 meq/L Normal (applies to non-num ayssine results) [facility] ([facility] Venous Hco3 34.1 meq/L 23.0-27.0 Above high normal [facility] ([facility] Venous Base Excess 6.5 Above high normal [facility] ([facility] Venous O2 Saturation 72.6 % 60.0-80.0 Normal (applies to non-num yassine results) [facility] ([facility] ID Date Data Source [id number] 05/31/2021 09:17:00 AM EDT [facility] ([facility] Name Value Range Interpretation Code Description Data Izabela rce(s) Supporting Document(s) Red Blood Count 4.27 10 4.00-5.40 Normal (applies to non-numeric results) [facility] ([facility] White Blood Count 15.7 10 4.0-10.0 Above high normal [facility] ([facility] Mean Corpuscular Volume 93.2 fl 80.0-96.0 Normal ( applies to non-numeric results) [facility] ([facility] ) Hemoglobin 11.5 g/dL 12.0-15.5 Below low normal [facility] ( [facility] Hematocrit 39.8 % 36.0-47.0 Normal (applies to non-numeric resul ts) [facility] ([facility] Mean Corpuscular HGB Conc 28.9 g/dL 32.0-36.5 Below low normal [facility] ([facility] Mean Corpuscular Hemoglobin 26.9 pg 27.0-33.0 Below low normal [facility] ([facility] Neutrophils % 76.8 % 36.0-66.0 Above high normal [facility] ([facility] Red Cell Distribution Width 13.5 % 11.5-14.5 Norm al (applies to non-numeric results) [facility] ([facility] ) Platelet Count, Automated 368 10 150-450 Normal (applies to non-numeric results) [facility] ([facility] ) [place] % 7.9 % 2.0-8.0 Normal (applies to non-numeric resul ts) [facility] ([facility] Lymph % 12.6 % 24.0-44.0 Below low normal [facility] ( [facility] Baso % 0.6 % 0.0-1.0 Normal (applies to non-numeric resul ts) [facility] ([facility] Eos % 1.7 % 0.0-3.0 Normal (applies to non-numeric resul ts) [facility] ([facility] Nucleated Red Blood Cell % 0.0 % 0-0 Normal (applies to n on-numeric results) [facility] ([facility] Immature Granulocyte % 0.4 % 0-3.0 Normal (applies to non-n umeric results) [facility] ([facility] Lymph # 2.0 10 1.5-5.0 Normal (applies to non-numeric resul ts) [facility] ([facility] Neutrophils # 12.0 10 1.5-8.5 Above high normal [facility] ([facility] [place] # 1.2 10 0.0-0.8 Above high normal [facility] ([facility] Eos # 0.3 10 0.0-0.5 Normal (applies to non-numeric resul ts) [facility] ([facility] Baso # 0.1 10 0.0-0.2 Normal (applies to non-numeric resul ts) [facility] ([facility] ID Date Data Source [id number] 05/31/2021 09:17:00 AM EDT [facility] ([facility] Name Value Range Interpretation Code Description Data Izabela rce(s) Supporting Document(s) Ast/Sgot 8 U/L 7-37 Normal (applies to non-numeric resul ts) [facility] ([facility] Alkaline Phosphatase 55 U/L 45-117 Normal (applies to non-num yassine results) [facility] ([facility] Alt/SGPT 19 U/L 12-78 Normal (applies to non-numeric resul ts) [facility] ([facility] Bilirubin,Total 0.4 mg/dL 0.2-1.0 Normal (applies to non-numeric results) [facility] ([facility] Bilirubin,Direct 0.1 mg/dL 0.0-0.2 Normal (applies to non-numeric results) [facility] ([facility] Albumin/Globulin Ratio 1.1 1.2-2.2 Below low normal [facility] ([facility] Total Protein 6.2 GM/DL 6.4-8.2 Below low normal [facility] ([facility] Albumin 3.3 GM/DL 3.2-5.2 Normal (applies to non-numeric resul ts) [facility] ([facility] ID Date Data Source [id number] 05/31/2021 09:17:00 AM EDT [facility] ([facility] Name Value Range Interpretation Code Description Data Izabela rce(s) Supporting Document(s) Blood Urea Nitrogen 32 mg/dL 7-18 Above high normal [facility] ([facility] Glucose, Fasting 127 mg/dL 70-100 Above high normal M [facility] ([facility] Creatinine For GFR 0.84 mg/dL 0.55-1.30 Normal (applies to non -numeric results) [facility] ([facility] Glomerular Filtration Rate Laboratory test result Normal (applies to non- numeric results) [facility] ([facility] ) <content>Units are mL/min/1.73 m2</content>
<content></content>
<content>Chronic Kidney Disease Staging per NKF:</content>
<content></content>
<content>Stage I & II GFR >=60 Normal to Mildly Decreased</content>
<content>Stage III GFR 30- 59 Moderately Decreased</content>
<content>Stage IV GFR 15-29 Severely Decreased</content>
<content>Stage V GFR <15 Very Little GFR Left</content>
<content>ESRD GFR <15 on GLASS FITTER</content>
<content></content> Sodium Level 144 meq/L 136-145 Normal (applies to non-numeric res ults) [facility] ([facility] Potassium Serum 4.4 meq/L 3.5-5.1 Normal (applies to non-numeric results) [facility] ([facility] Chloride Level 106 meq/L 98-107 Normal (applies to non-numeric r esults) [facility] ([facility] Carbon Dioxide Level 32 meq/L 21-32 Normal (applies to non-num yassine results) [facility] ([facility] Anion Gap 6 meq/L 8-16 Below low normal [facility] ( [facility] Calcium Level 9.1 mg/dL 8.8-10.2 Normal (applies to non-numeric re sults) [facility] ([facility] ID Date Data Source [id number] 05/31/2021 09:17:00 AM EDT [facility] ([facility] Name Value Range Interpretation Code Description Data Izabela rce(s) Supporting Document(s) Thyrotropin [Units/volume] in Serum or Plasma 2.010 uIU/ML 0. 358-3.740 Normal (applies to non-numeric results) [facility] ([facility] Natriuretic peptide.B prohormone N-Terminal [Mass/volu me] in Serum or Plasma 1363 pg/mL Above high normal [facility] ([facility] ID Date Data Source [id number] 05/31/2021 09:17:00 AM EDT [facility] ([facility] Name Value Range Interpretation Code Description Data Izabela rce(s) Supporting Document(s) Respiratory Panel Laboratory test result [facility] ([facility] This respiratory PCR panel detects Influ angelica A H1, H3 and 2009 H1 viruses, Influenza B virus, Resp iratory Syncytial Virus, Human metapneumovirus, Parainfluenza virus 1, 2, 3 and 4, Adenovirus, Rhinovirus/Enterovirus, Coronavirus HKU1, NL63, OC43, 229E and SARS-CoV-2 (COVID 19), Bordetella pertussis, Bordetella parapertussis, Mycoplasma pneumoniae and Chlamydia pneumoniae. NEGATIVE by MULTIPLEXED NUCLEIC ACID PCR SARS-CoV-2 (COVID 19) NEGATIVE - SARS-CoV-2 (COVID19) ID Date Data Source [id number] 05/31/2021 09:17:00 AM EDT [facility] ([facility] Name Value Range Interpretation Code Description Data Izabela rce(s) Supporting Document(s) CK-MB Value Mass 2.0 ng/mL Normal (applies to non-numeric results) [facility] ([facility] CPK Creatine Phosphokinase 40 U/L 26-192 Samantha l (applies to non-numeric results) [facility] ([facility] ) MB/CK Relative Index 5.00 Above high normal [facility] ([facility] <content>DIAGNOSIS CRITERIA</content>
<content>MMB ng/ml Relative Index (RI)</content>
<content>NON-AMI < or = 5 N/A</content>
<content>ALANIS ZONE > 5 < or = 4</content>
<content>AMI > 5 > 4</content>
<content></content> Troponin I 0.13 ng/mL Above high normal [facility] ([facility] <content>Troponin I Reference Interval f or Siemens [place] LOCI:</content>
<content></content>
<content>99th Percentile= 0.00-0.045 ng/ml</content>
<content></content>
<content>Risk Stratification:</content>
<content><= 0.10 ng/ml Decreased Risk for Adverse Clinical</content>
<content>Events.</content>
<content>0.10-1.50 ng/ml Increased Risk for Adverse Clinical</content>
<content>Events. Evaluation of additional</content>
<content>criterion and/or repeat testing in 2-6</content>
<content>hours is suggested to rule out myocardial</content>
<content>damage.</content>
<content>>= 1.50 ng/ml Indicative of Myocardial Injury.</content>
<content></content> ID Date Data Source [id number] 05/31/2021 09:17:00 AM EDT [facility] Name Value Range Interpretation Code Description Data Izaebla rce(s) Supporting Document(s) SARS-CoV-2 (COVID 19) NEGATIVE - SARS-CoV-2 (COVID19) [facility] This lab was ordered by [facility] a nd reported by [facility]. ID Date Data Source [id number] 05/19/2021 01:52:00 PM EDT [facility] ([facility] Name Value Range Interpretation Code Description Data Izabela rce(s) Supporting Document(s) Hemoglobin A1c/Hemoglobin.total in Blood 8.3 % 4.50-6.20 Above high normal [facility] ([facility] ID Date Data Source [id number] 05/19/2021 01:52:00 PM EDT [facility] ([facility] Name Value Range Interpretation Code Description Data Izabela rce(s) Supporting Document(s) WBC 9.2 10E3/uL 4.1-10.9 [facility] ([facility] NORMAL RANGES Age WBC RBC HGB HCT [...] HCT IS 5% LESS SOURCE FOR DATA: [employer] 1800 OPERATION MANUAL( AUTOMATED BLOOD COUNTS AND [...] DESIRABLE: <130 MG/DL <110 MG/DL BORDERLINE-HIGH RISK: 130- 159 MG/DL 110-129 MG/DL HIGH RISK: >160 MG/DL >130 MG/DL *CHILDREN AND ADOLESCENTS REPRESENTS INDIVIDUALA AGED 2-19 YEARS EXCLUSIVE. RBC 3.91 10E6/uL 4.20-6.30 Below low normal [facility] ([facility] NORMAL RANGES Age WBC RBC HGB HCT [...] HCT IS 5% LESS SOURCE FOR DATA: [employer] 1800 [employer]PERATION MANUAL( AUTOMATED BLOOD COUNTS AND [...] DESIRABLE: <130 MG/DL <110 MG/DL BORDERLINE-HIGH RISK: 130- 159 MG/DL 110-129 MG/DL HIGH RISK: >160 MG/DL >130 MG/DL *CHILDREN AND ADOLESCENTS REPRESENTS INDIVIDUALA AGED 2-19 YEARS EXCLUSIVE. HGB 10.4 g/dL 12.0-18.0 Below low normal [facility] ( [facility] NORMAL RANGES Age WBC RBC HGB HCT [...] HCT IS 5% LESS SOURCE FOR DATA: [employer] 1800 OPERATION MANUAL( AUTOMATED BLOOD COUNTS AND [...] DESIRABLE: <130 MG/DL <110 MG/DL BORDERLINE-HIGH RISK: 130- 159 MG/DL 110-129 MG/DL HIGH RISK: >160 MG/DL >130 MG/DL *CHILDREN AND ADOLESCENTS REPRESENTS INDIVIDUALA AGED 2-19 YEARS EXCLUSIVE. MCV 92.6 fL 80.0-97.0 [facility] NORMAL RANGES Age WBC RBC HGB HCT [...] HCT IS 5% LESS SOURCE FOR DATA: [employer]PERATION MANUAL( AUTOMATED BLOOD COUNTS AND [...] DESIRABLE: <130 MG/DL <110 MG/DL BORDERLINE-HIGH RISK: 130- 159 MG/DL 110-129 MG/DL HIGH RISK: >160 MG/DL >130 MG/DL *CHILDREN AND ADOLESCENTS REPRESENTS INDIVIDUALA AGED 2-19 YEARS EXCLUSIVE. HCT 36.2 % 37.0-51.0 Below low normal [facility] ( [facility] NORMAL RANGES Age WBC RBC HGB HCT [...] HCT IS 5% LESS SOURCE FOR DATA: [employer] 1800 OPERATION MANUAL( AUTOMATED BLOOD COUNTS AND [...] DESIRABLE: <130 MG/DL <110 MG/DL BORDERLINE-HIGH RISK: 130- 159 MG/DL 110-129 MG/DL HIGH RISK: >160 MG/DL >130 MG/DL *CHILDREN AND ADOLESCENTS REPRESENTS INDIVIDUALA AGED 2-19 YEARS EXCLUSIVE. MCH 26.6 pg 26.0-32.0 [facility] NORMAL RANGES Age WBC RBC HGB HCT [...] DESIRABLE: <130 MG/DL <110 MG/DL BORDERLINE-HIGH RISK: 130- 159 MG/DL 110-129 MG/DL HIGH RISK: >160 MG/DL >130 MG/DL *CHILDREN AND ADOLESCENTS REPRESENTS INDIVIDUALA AGED 2-19 YEARS EXCLUSIVE. MCHC 28.7 g/dL 31.0-36.0 Below low normal [facility] ( [facility] NORMAL RANGES Age WBC RBC HGB HCT [...] HCT IS 5% LESS SOURCE FOR DATA: [employer] 1800 OPERATION MANUAL( AUTOMATED BLOOD COUNTS AND [...] DESIRABLE: <130 MG/DL <110 MG/DL BORDERLINE-HIGH RISK: 130- 159 MG/DL 110-129 MG/DL HIGH RISK: >160 MG/DL >130 MG/DL *CHILDREN AND ADOLESCENTS REPRESENTS INDIVIDUALA AGED 2-19 YEARS EXCLUSIVE. PLT 309 10E3/uL 140-440 [facility] ([facility] NORMAL RANGES Age WBC RBC HGB HCT [...] HCT IS 5% LESS SOURCE FOR DATA: [employer] OPERATION MANUAL( AUTOMATED BLOOD COUNTS AND [...] DESIRABLE: <130 MG/DL <110 MG/DL BORDERLINE-HIGH RISK: 130- 159 MG/DL 110-129 MG/DL HIGH RISK: >160 MG/DL >130 MG/DL *CHILDREN AND ADOLESCENTS REPRESENTS INDIVIDUALA AGED 2-19 YEARS EXCLUSIVE. RDW-CV 13.1 % 11.5-14.5 [facility] NORMAL RANGES Age WBC RBC HGB HCT [...] HCT IS 5% LESS SOURCE FOR DATA: [employer] 1800 OPERATION MANUAL( AUTOMATED BLOOD COUNTS [...] DESIRABLE: <130 MG/DL <110 MG/DL BORDERLINE-HIGH RISK: 130- 159 MG/DL 110-129 MG/DL HIGH RISK: >160 MG/DL >130 MG/DL *CHILDREN AND ADOLESCENTS REPRESENTS INDIVIDUALA AGED 2-19 YEARS EXCLUSIVE. Lym% 6.7 % 10.0-58.5 Below low normal [facility] ( [facility] NORMAL RANGES Age WBC RBC HGB HCT [...] HCT IS 5% LESS SOURCE FOR DATA: [employer] 1800 OPERATION MANUAL( AUTOMATED BLOOD COUNTS AND [...] DESIRABLE: <130 MG/DL <110 MG/DL BORDERLINE-HIGH RISK: 130- 159 MG/DL 110-129 MG/DL HIGH RISK: >160 MG/DL >130 MG/DL *CHILDREN AND ADOLESCENTS REPRESENTS INDIVIDUALA AGED 2-19 YEARS EXCLUSIVE. Neut% 91.6 % 37.0-92.0 [facility] ([facility] NORMAL RANGES Age WBC RBC HGB HCT [...] HCT IS 5% LESS SOURCE FOR DATA: [employer] 1800 OPERATION MANUAL( AUTOMATED BLOOD COUNTS AND [...] DESIRABLE: <130 MG/DL <110 MG/DL BORDERLINE-HIGH RISK: 130- 159 MG/DL 110-129 MG/DL HIGH RISK: >160 MG/DL >130 MG/DL *CHILDREN AND ADOLESCENTS REPRESENTS INDIVIDUALA AGED 2-19 YEARS EXCLUSIVE. MXD% 1.7 % 0.1-24.0 [facility] ([facility] NORMAL RANGES Age WBC RBC HGB HCT [...] HCT IS 5% LESS SOURCE FOR DATA: [employer] OPERATION MANUAL( AUTOMATED BLOOD COUNTS AND [...] DESIRABLE: <130 MG/DL <110 MG/DL BORDERLINE-HIGH RISK: 130- 159 MG/DL 110-129 MG/DL HIGH RISK: >160 MG/DL >130 MG/DL *CHILDREN AND ADOLESCENTS REPRESENTS INDIVIDUALA AGED 2-19 YEARS EXCLUSIVE. Lym# 0.6 10E3/uL 0.6-4.1 [facility] ([facility] NORMAL RANGES Age WBC RBC HGB HCT [...] HCT IS 5% LESS SOURCE FOR DATA: [employer] 1800 OPERATION MANUAL( AUTOMATED BLOOD COUNTS AND [...] DESIRABLE: <130 MG/DL <110 MG/DL BORDERLINE-HIGH RISK: 130- 159 MG/DL 110-129 MG/DL HIGH RISK: >160 MG/DL >130 MG/DL *CHILDREN AND ADOLESCENTS REPRESENTS INDIVIDUALA AGED 2-19 YEARS EXCLUSIVE. Neut# 8.4 % 2.0-7.8 Above high normal [facility] ([facility] NORMAL RANGES Age WBC RBC HGB HCT [...] HCT IS 5% LESS SOURCE FOR DATA: [employer] 1800 OPERATION MANUAL( AUTOMATED BLOOD COUNTS AND [...] DESIRABLE: <130 MG/DL <110 MG/DL BORDERLINE-HIGH RISK: 130- 159 MG/DL 110-129 MG/DL HIGH RISK: >160 MG/DL >130 MG/DL *CHILDREN AND ADOLESCENTS REPRESENTS INDIVIDUALA AGED 2-19 YEARS EXCLUSIVE. MXD# 0.2 10E3/uL 0.0-1.8 [facility] ([facility] NORMAL RANGES Age WBC RBC HGB HCT [...] HCT IS 5% LESS SOURCE FOR DATA: [employer] 1800 OPERATION MANUAL( AUTOMATED BLOOD COUNTS AND [...] DESIRABLE: <130 MG/DL <110 MG/DL BORDERLINE-HIGH RISK: 130- 159 MG/DL 110-129 MG/DL HIGH RISK: >160 MG/DL >130 MG/DL *CHILDREN AND ADOLESCENTS REPRESENTS INDIVIDUALA AGED 2-19 YEARS EXCLUSIVE. MPV 11.4 fL 9.0-13.0 [facility] ([facility] NORMAL RANGES Age WBC RBC HGB HCT [...] HCT IS 5% LESS SOURCE FOR DATA: [employer] 1800 OPERATION MANUAL( AUTOMATED BLOOD COUNTS AND [...] DESIRABLE: <130 MG/DL <110 MG/DL BORDERLINE-HIGH RISK: 130- 159 MG/DL 110-129 MG/DL HIGH RISK: >160 MG/DL >130 MG/DL *CHILDREN AND ADOLESCENTS REPRESENTS INDIVIDUALA AGED 2-19 YEARS EXCLUSIVE. ID Date Data Source [id number] 05/19/2021 01:52:00 PM EDT [facility] ([facility] Name Value Range Interpretation Code Description Data Izabela rce(s) Supporting Document(s) Trig 122 mg/dL 40-200 [facility] NORMAL RANGES Age WBC RBC HGB HCT [...] DESIRABLE: <130 MG/DL <110 MG/DL BORDERLINE-HIGH RISK: 130- 159 MG/DL 110-129 MG/DL HIGH RISK: >160 MG/DL >130 MG/DL *CHILDREN AND ADOLESCENTS REPRESENTS INDIVIDUALA AGED 2-19 YEARS EXCLUSIVE. Chol 197 mg/dL 0-200 [facility] NORMAL RANGES Age WBC RBC HGB HCT [...] HCT IS 5% LESS SOURCE FOR DATA: [employer] 1800 OPERATION MANUAL( AUTOMATED BLOOD COUNTS AND [...] DESIRABLE: <130 MG/DL <110 MG/DL BORDERLINE-HIGH RISK: 130- 159 MG/DL 110-129 MG/DL HIGH RISK: >160 MG/DL >130 MG/DL *CHILDREN AND ADOLESCENTS REPRESENTS INDIVIDUALA AGED 2-19 YEARS EXCLUSIVE. LDL_C 101 Calc 75-129 [facility] NORMAL RANGES Age WBC RBC HGB HCT [...] HCT IS 5% LESS SOURCE FOR DATA: [employer] 1800 OPERATION MANUAL( AUTOMATED BLOOD COUNTS AND [...] DESIRABLE: <130 MG/DL <110 MG/DL BORDERLINE-HIGH RISK: 130- 159 MG/DL 110-129 MG/DL HIGH RISK: >160 MG/DL >130 MG/DL *CHILDREN AND ADOLESCENTS REPRESENTS INDIVIDUALA AGED 2-19 YEARS EXCLUSIVE. Cholesterol in HDL [Mass/volume] in Serum or Plasma 72 mg/dL 45-65 Above high normal [facility] ([facility] NORMAL RANGES Age WBC RBC HGB HCT [...] HCT IS 5% LESS SOURCE FOR DATA: [employer]YN 1800 OPERATION MANUAL( AUTOMATED BLOOD COUNTS [...] DESIRABLE: <130 MG/DL <110 MG/DL BORDERLINE-HIGH RISK: 130- 159 MG/DL 110-129 MG/DL HIGH RISK: >160 MG/DL >130 MG/DL *CHILDREN AND ADOLESCENTS REPRESENTS INDIVIDUALA AGED 2-19 YEARS EXCLUSIVE. Cho/HDL Ratio 2.8 CALC [facility] ([facility] NORMAL RANGES Age WBC RBC HGB HCT [...] HCT IS 5% LESS SOURCE FOR DATA: [employer] 1800 OPERATION MANUAL( AUTOMATED BLOOD COUNTS AND [...] DESIRABLE: <130 MG/DL <110 MG/DL BORDERLINE-HIGH RISK: 130- 159 MG/DL 110-129 MG/DL HIGH RISK: >160 MG/DL >130 MG/DL *CHILDREN AND ADOLESCENTS REPRESENTS INDIVIDUALA AGED 2-19 YEARS EXCLUSIVE. ID Date Data Source [id number] 05/19/2021 01:52:00 PM EDT [facility] ([facility] Name Value Range Interpretation Code Description Data Izabela rce(s) Supporting Document(s) Glu 328 mg/dL 70-110 Above high normal [facility] ([facility] NORMAL RANGES Age WBC RBC HGB HCT [...] HCT IS 5% LESS SOURCE FOR DATA: [employer] 1800 OPERATION MANUAL( AUTOMATED BLOOD COUNTS AND [...] DESIRABLE: <130 MG/DL <110 MG/DL BORDERLINE-HIGH RISK: 130- 159 MG/DL 110-129 MG/DL HIGH RISK: >160 MG/DL >130 MG/DL *CHILDREN AND ADOLESCENTS REPRESENTS INDIVIDUALA AGED 2-19 YEARS EXCLUSIVE. BUN 29 mg/dL 8-23 Above high normal [facility] ([facility] NORMAL RANGES Age WBC RBC HGB HCT [...] HCT IS 5% LESS SOURCE FOR DATA: [employer] 1800 OPERATION MANUAL( AUTOMATED BLOOD COUNTS AND [...] DESIRABLE: <130 MG/DL <110 MG/DL BORDERLINE-HIGH RISK: 130- 159 MG/DL 110-129 MG/DL HIGH RISK: >160 MG/DL >130 MG/DL *CHILDREN AND ADOLESCENTS REPRESENTS INDIVIDUALA AGED 2-19 YEARS EXCLUSIVE. BUN/Creatinine Ratio 31.6 CALC [facility] ([facility] [facility] NORMAL RANGES Age WBC RBC HGB HCT [...] HCT IS 5% LESS SOURCE FOR DATA: [employer] 1800 OPERATION MANUAL( AUTOMATED BLOOD COUNTS AND [...] DESIRABLE: <130 MG/DL <110 MG/DL BORDERLINE-HIGH RISK: 130- 159 MG/DL 110-129 MG/DL HIGH RISK: >160 MG/DL >130 MG/DL *CHILDREN AND ADOLESCENTS REPRESENTS INDIVIDUALA AGED 2-19 YEARS EXCLUSIVE. Creat 0.9 mg/dL 0.5-1.0 [facility] NORMAL RANGES Age WBC RBC HGB HCT [...] HCT IS 5% LESS SOURCE FOR DATA: [employer] 1800 OPERATION MANUAL( AUTOMATED BLOOD COUNTS AND [...] DESIRABLE: <130 MG/DL <110 MG/DL BORDERLINE-HIGH RISK: 130- 159 MG/DL 110-129 MG/DL HIGH RISK: >160 MG/DL >130 MG/DL *CHILDREN AND ADOLESCENTS REPRESENTS INDIVIDUALA AGED 2-19 YEARS EXCLUSIVE. Na 136 mmol/L 136-145 [facility] ([facility] NORMAL RANGES Age WBC RBC HGB HCT [...] HCT IS 5% LESS SOURCE FOR DATA: [employer] 1800 OPERATION MANUAL( AUTOMATED BLOOD COUNTS AND [...] DESIRABLE: <130 MG/DL <110 MG/DL BORDERLINE-HIGH RISK: 130- 159 MG/DL 110-129 MG/DL HIGH RISK: >160 MG/DL >130 MG/DL *CHILDREN AND ADOLESCENTS REPRESENTS INDIVIDUALA AGED 2-19 YEARS EXCLUSIVE. CL 95.7 mmol/L 98.0-107.0 Below low normal [facility] ([facility] NORMAL RANGES Age WBC RBC HGB HCT [...] HCT IS 5% LESS SOURCE FOR DATA: [employer] 1800 OPERATION MANUAL( AUTOMATED BLOOD COUNTS AND [...] DESIRABLE: <130 MG/DL <110 MG/DL BORDERLINE-HIGH RISK: 130- 159 MG/DL 110-129 MG/DL HIGH RISK: >160 MG/DL >130 MG/DL *CHILDREN AND ADOLESCENTS REPRESENTS INDIVIDUALA AGED 2-19 YEARS EXCLUSIVE. K 4.8 mmol/L 3.5-5.1 [facility] ([facility] NORMAL RANGES Age WBC RBC HGB HCT [...] IS 5% LESS SOURCE FOR DATA: [place] [employer] 1800 OPERATION MANUAL( AUTOMATED BLOOD COUNTS AND [...] DESIRABLE: <130 MG/DL <110 MG/DL BORDERLINE-HIGH RISK: 130- 159 MG/DL 110-129 MG/DL HIGH RISK: >160 MG/DL >130 MG/DL *CHILDREN AND ADOLESCENTS REPRESENTS INDIVIDUALA AGED 2-19 YEARS EXCLUSIVE. Co2 29.3 mmol/L 22.0-29.0 Above high normal [facility] ([facility] NORMAL RANGES Age WBC RBC HGB HCT [...] HCT IS 5% LESS SOURCE FOR DATA: [employer] 1800 OPERATION MANUAL( AUTOMATED BLOOD COUNTS AND [...] DESIRABLE: <130 MG/DL <110 MG/DL BORDERLINE-HIGH RISK: 130- 159 MG/DL 110-129 MG/DL HIGH RISK: >160 MG/DL >130 MG/DL *CHILDREN AND ADOLESCENTS REPRESENTS INDIVIDUALA AGED 2-19 YEARS EXCLUSIVE. Alb 4.1 g/dL 3.4-4.8 [facility] ([facility] NORMAL RANGES Age WBC RBC HGB HCT [...] HCT IS 5% LESS SOURCE FOR DATA: [employer] 1800 OPERATION MANUAL( AUTOMATED BLOOD COUNTS AND [...] DESIRABLE: <130 MG/DL <110 MG/DL BORDERLINE-HIGH RISK: 130- 159 MG/DL 110-129 MG/DL HIGH RISK: >160 MG/DL >130 MG/DL *CHILDREN AND ADOLESCENTS REPRESENTS INDIVIDUALA AGED 2-19 YEARS EXCLUSIVE. CA 9.0 mg/dL 8.6-10.2 [facility] ([facility] NORMAL RANGES Age WBC RBC HGB HCT [...] DESIRABLE: <130 MG/DL <110 MG/DL BORDERLINE-HIGH RISK: 130- 159 MG/DL 110-129 MG/DL HIGH RISK: >160 MG/DL >130 MG/DL *CHILDREN AND ADOLESCENTS REPRESENTS INDIVIDUALA AGED 2-19 YEARS EXCLUSIVE. TP 5.6 g/dL 6.6-8.7 Below low normal [facility] ( [facility] NORMAL RANGES Age WBC RBC HGB HCT [...] HCT IS 5% LESS SOURCE FOR DATA: [employer] 1800 OPERATION MANUAL( AUTOMATED BLOOD COUNTS AND [...] DESIRABLE: <130 MG/DL <110 MG/DL BORDERLINE-HIGH RISK: 130- 159 MG/DL 110-129 MG/DL HIGH RISK: >160 MG/DL >130 MG/DL *CHILDREN AND ADOLESCENTS REPRESENTS INDIVIDUALA AGED 2-19 YEARS EXCLUSIVE. Globulin 1.5 CALC [facility] ([facility] NORMAL RANGES Age WBC RBC HGB HCT [...] HCT IS 5% LESS SOURCE FOR DATA: [employer] 1800 OPERATION MANUAL( AUTOMATED BLOOD COUNTS AND [...] DESIRABLE: <130 MG/DL <110 MG/DL BORDERLINE-HIGH RISK: 130- 159 MG/DL 110-129 MG/DL HIGH RISK: >160 MG/DL >130 MG/DL *CHILDREN AND ADOLESCENTS REPRESENTS INDIVIDUALA AGED 2-19 YEARS EXCLUSIVE. A/G Ratio 2.7 [facility]C [facility] ([facility] NORMAL RANGES Age WBC RBC HGB HCT [...] HCT IS 5% LESS SOURCE FOR DATA: [employer]YN 1800 OPERATION MANUAL( AUTOMATED BLOOD COUNTS [...] DESIRABLE: <130 MG/DL <110 MG/DL BORDERLINE-HIGH RISK: 130- 159 MG/DL 110-129 MG/DL HIGH RISK: >160 MG/DL >130 MG/DL *CHILDREN AND ADOLESCENTS REPRESENTS INDIVIDUALA AGED 2-19 YEARS EXCLUSIVE. Alp 56.5 U/L 35-129 [facility] ([facility] NORMAL RANGES Age WBC RBC HGB HCT [...] HCT IS 5% LESS SOURCE FOR DATA: [employer] 1800 OPERATION MANUAL( AUTOMATED BLOOD COUNTS AND [...] DESIRABLE: <130 MG/DL <110 MG/DL BORDERLINE-HIGH RISK: 130- 159 MG/DL 110-129 MG/DL HIGH RISK: >160 MG/DL >130 MG/DL *CHILDREN AND ADOLESCENTS REPRESENTS INDIVIDUALA AGED 2-19 YEARS EXCLUSIVE. Ast (Sgot) 10 U/L 0-40 [facility] NORMAL RANGES Age WBC RBC HGB HCT [...] HCT IS 5% LESS SOURCE FOR DATA: [employer] 1800 OPERATION MANUAL( AUTOMATED BLOOD COUNTS AND [...] DESIRABLE: <130 MG/DL <110 MG/DL BORDERLINE-HIGH RISK: 130- 159 MG/DL 110-129 MG/DL HIGH RISK: >160 MG/DL >130 MG/DL *CHILDREN AND ADOLESCENTS REPRESENTS INDIVIDUALA AGED 2-19 YEARS EXCLUSIVE. Alt (SGPT) 12 U/L 0-41 [facility] NORMAL RANGES Age WBC RBC HGB HCT [...] HCT IS 5% LESS SOURCE FOR DATA: [employer] 1800 OPERATION MANUAL( AUTOMATED BLOOD COUNTS AND [...] DESIRABLE: <130 MG/DL <110 MG/DL BORDERLINE-HIGH RISK: 130- 159 MG/DL 110-129 MG/DL HIGH RISK: >160 MG/DL >130 MG/DL *CHILDREN AND ADOLESCENTS REPRESENTS INDIVIDUALA AGED 2-19 YEARS EXCLUSIVE. Tbili 0.26 mg/dL 0.0-1.2 [facility] ([facility] NORMAL RANGES Age WBC RBC HGB HCT [...] HCT IS 5% LESS SOURCE FOR DATA: [employer] 1800 OPERATION MANUAL( AUTOMATED BLOOD COUNTS AND [...] DESIRABLE: <130 MG/DL <110 MG/DL BORDERLINE-HIGH RISK: 130- 159 MG/DL 110-129 MG/DL HIGH RISK: >160 MG/DL >130 MG/DL *CHILDREN AND ADOLESCENTS REPRESENTS INDIVIDUALA AGED 2-19 YEARS EXCLUSIVE. Osmolality-Calculated 290.8 CALC [facility] ([facility] NORMAL RANGES Age WBC RBC HGB HCT [...] HCT IS 5% LESS SOURCE FOR DATA: [employer] 1800 OPERATION MANUAL( AUTOMATED BLOOD COUNTS AND [...] DESIRABLE: <130 MG/DL <110 MG/DL BORDERLINE-HIGH RISK: 130- 159 MG/DL 110-129 MG/DL HIGH RISK: >160 MG/DL >130 MG/DL *CHILDREN AND ADOLESCENTS REPRESENTS INDIVIDUALA AGED 2-19 YEARS EXCLUSIVE. eGFR 70 # [facility] ( [facility] NORMAL RANGES Age WBC RBC HGB HCT [...] HCT IS 5% LESS SOURCE FOR DATA: [employer] 1800 OPERATION MANUAL( AUTOMATED BLOOD COUNTS AND [...] DESIRABLE: <130 MG/DL <110 MG/DL BORDERLINE-HIGH RISK: 130- 159 MG/DL 110-129 MG/DL HIGH RISK: >160 MG/DL >130 MG/DL *CHILDREN AND ADOLESCENTS REPRESENTS INDIVIDUALA AGED 2-19 YEARS EXCLUSIVE. Anion Gap 16 mmol/L [facility] ([facility] NORMAL RANGES Age WBC RBC HGB HCT [...] HCT IS 5% LESS SOURCE FOR DATA: [employer] 1800 OPERATION MANUAL( AUTOMATED BLOOD COUNTS AND [...] DESIRABLE: <130 MG/DL <110 MG/DL BORDERLINE-HIGH RISK: 130- 159 MG/DL 110-129 MG/DL HIGH RISK: >160 MG/DL >130 MG/DL *CHILDREN AND ADOLESCENTS REPRESENTS INDIVIDUALA AGED 2-19 YEARS EXCLUSIVE. eGFR Non-Afr. [place]ayan 61 # [facility] ([facility] NORMAL RANGES Age WBC RBC HGB HCT [...] HCT IS 5% LESS SOURCE FOR DATA: [employer] 1800 OPERATION MANUAL( AUTOMATED BLOOD COUNTS AND [...] DESIRABLE: <130 MG/DL <110 MG/DL BORDERLINE-HIGH RISK: 130- 159 MG/DL 110-129 MG/DL HIGH RISK: >160 MG/DL >130 MG/DL *CHILDREN AND ADOLESCENTS REPRESENTS INDIVIDUALA AGED 2-19 YEARS EXCLUSIVE. ID Date Data Source [id number] 02/15/2021 02:33:00 PM EDT [facility] ([facility] Name Value Range Interpretation Code Description Data Izabela rce(s) Supporting Document(s) Hemoglobin A1c/Hemoglobin.total in Blood 7.8 % 4.40-6.10 Above high normal [facility] ([facility] NORMAL RANGES Age WBC RBC HGB HCT [...] HCT IS 5% LESS SOURCE FOR DATA: [employer] 1800 OPERATION MANUAL( AUTOMATED BLOOD COUNTS AND [...] DESIRABLE: <130 MG/DL <110 MG/DL BORDERLINE-HIGH RISK: 130- 159 MG/DL 110-129 MG/DL HIGH RISK: >160 MG/DL >130 MG/DL *CHILDREN AND ADOLESCENTS REPRESENTS INDIVIDUALA AGED 2-19 YEARS EXCLUSIVE. ID Date Data Source [id number] 02/15/2021 02:33:00 PM EDT [facility] ([facility] Name Value Range Interpretation Code Description Data Izabela rce(s) Supporting Document(s) WBC 10.1 10E3/uL 4.1-10.9 [facility] ([facility] NORMAL RANGES Age WBC RBC HGB HCT [...] HCT IS 5% LESS SOURCE FOR DATA: [employer] 1800 OPERATION MANUAL( AUTOMATED BLOOD COUNTS AND [...] DESIRABLE: <130 MG/DL <110 MG/DL BORDERLINE-HIGH RISK: 130- 159 MG/DL 110-129 MG/DL HIGH RISK: >160 MG/DL >130 MG/DL *CHILDREN AND ADOLESCENTS REPRESENTS INDIVIDUALA AGED 2-19 YEARS EXCLUSIVE. RBC 4.17 10E6/uL 4.20-6.30 Below low normal [facility] ([facility] NORMAL RANGES Age WBC RBC HGB HCT [...] HCT IS 5% LESS SOURCE FOR DATA: [employer] 1800 OPERATION MANUAL( AUTOMATED BLOOD COUNTS AND [...] DESIRABLE: <130 MG/DL <110 MG/DL BORDERLINE-HIGH RISK: 130- 159 MG/DL 110-129 MG/DL HIGH RISK: >160 MG/DL >130 MG/DL *CHILDREN AND ADOLESCENTS REPRESENTS INDIVIDUALA AGED 2-19 YEARS EXCLUSIVE. HGB 11.0 g/dL 12.0-18.0 Below low normal [facility] ( [facility] NORMAL RANGES Age WBC RBC HGB HCT [...] HCT IS 5% LESS SOURCE FOR DATA: [employer] 1800 OPERATION MANUAL( AUTOMATED BLOOD COUNTS AND [...] DESIRABLE: <130 MG/DL <110 MG/DL BORDERLINE-HIGH RISK: 130- 159 MG/DL 110-129 MG/DL HIGH RISK: >160 MG/DL >130 MG/DL *CHILDREN AND ADOLESCENTS REPRESENTS INDIVIDUALA AGED 2-19 YEARS EXCLUSIVE. MCV 91.6 fL 80.0-97.0 [facility] ([facility] NORMAL RANGES Age WBC RBC HGB HCT [...] HCT IS 5% LESS SOURCE FOR DATA: [employer] 1800 OPERATION MANUAL( AUTOMATED BLOOD COUNTS AND [...] DESIRABLE: <130 MG/DL <110 MG/DL BORDERLINE-HIGH RISK: 130- 159 MG/DL 110-129 MG/DL HIGH RISK: >160 MG/DL >130 MG/DL *CHILDREN AND ADOLESCENTS REPRESENTS INDIVIDUALA AGED 2-19 YEARS EXCLUSIVE. HCT 38.2 % 37.0-51.0 [facility] ([facility] NORMAL RANGES Age WBC RBC HGB HCT [...] HCT IS 5% LESS SOURCE FOR DATA: [employer] 1800 OPERATION MANUAL( AUTOMATED BLOOD COUNTS [...] DESIRABLE: <130 MG/DL <110 MG/DL BORDERLINE-HIGH RISK: 130- 159 MG/DL 110-129 MG/DL HIGH RISK: >160 MG/DL >130 MG/DL *CHILDREN AND ADOLESCENTS REPRESENTS INDIVIDUALA AGED 2-19 YEARS EXCLUSIVE. MCHC 28.8 g/dL 31.0-36.0 Below low normal [facility] ( [facility] NORMAL RANGES Age WBC RBC HGB HCT [...] HCT IS 5% LESS SOURCE FOR DATA: [employer] 1800 OPERATION MANUAL( AUTOMATED BLOOD COUNTS AND [...] DESIRABLE: <130 MG/DL <110 MG/DL BORDERLINE-HIGH RISK: 130- 159 MG/DL 110-129 MG/DL HIGH RISK: >160 MG/DL >130 MG/DL *CHILDREN AND ADOLESCENTS REPRESENTS INDIVIDUALA AGED 2-19 YEARS EXCLUSIVE. MCH 26.4 pg 26.0-32.0 [facility] ([facility] NORMAL RANGES Age WBC RBC HGB HCT [...] HCT IS 5% LESS SOURCE FOR DATA: [employer] 1800 OPERATION MANUAL( AUTOMATED BLOOD COUNTS AND [...] DESIRABLE: <130 MG/DL <110 MG/DL BORDERLINE-HIGH RISK: 130- 159 MG/DL 110-129 MG/DL HIGH RISK: >160 MG/DL >130 MG/DL *CHILDREN AND ADOLESCENTS REPRESENTS INDIVIDUALA AGED 2-19 YEARS EXCLUSIVE. PLT 308 10E3/uL 140-440 [facility] ([facility] NORMAL RANGES Age WBC RBC HGB HCT [...] HCT IS 5% LESS SOURCE FOR DATA: [employer] 1800 OPERATION MANUAL( AUTOMATED BLOOD COUNTS AND [...] DESIRABLE: <130 MG/DL <110 MG/DL BORDERLINE-HIGH RISK: 130- 159 MG/DL 110-129 MG/DL HIGH RISK: >160 MG/DL >130 MG/DL *CHILDREN AND ADOLESCENTS REPRESENTS INDIVIDUALA AGED 2-19 YEARS EXCLUSIVE. RDW-CV 14.3 % 11.5-14.5 [facility] ([facility] NORMAL RANGES Age WBC RBC HGB HCT [...] HCT IS 5% LESS SOURCE FOR DATA: [employer] 1800 OPERATION MANUAL( AUTOMATED BLOOD COUNTS AND [...] DESIRABLE: <130 MG/DL <110 MG/DL BORDERLINE-HIGH RISK: 130- 159 MG/DL 110-129 MG/DL HIGH RISK: >160 MG/DL >130 MG/DL *CHILDREN AND ADOLESCENTS REPRESENTS INDIVIDUALA AGED 2-19 YEARS EXCLUSIVE. Lym% 9.5 % 10.0-58.5 Below low normal [facility] ( [facility] NORMAL RANGES Age WBC RBC HGB HCT [...] HCT IS 5% LESS SOURCE FOR DATA: [employer] 1800 OPERATION MANUAL( AUTOMATED BLOOD COUNTS AND [...] DESIRABLE: <130 MG/DL <110 MG/DL BORDERLINE-HIGH RISK: 130- 159 MG/DL 110-129 MG/DL HIGH RISK: >160 MG/DL >130 MG/DL *CHILDREN AND ADOLESCENTS REPRESENTS INDIVIDUALA AGED 2-19 YEARS EXCLUSIVE. MXD% 9.6 % 0.1-24.0 [facility] ([facility] NORMAL RANGES Age WBC RBC HGB HCT [...] HCT IS 5% LESS SOURCE FOR DATA: [employer] 1800 OPERATION MANUAL( AUTOMATED BLOOD COUNTS AND [...] DESIRABLE: <130 MG/DL <110 MG/DL BORDERLINE-HIGH RISK: 130- 159 MG/DL 110-129 MG/DL HIGH RISK: >160 MG/DL >130 MG/DL *CHILDREN AND ADOLESCENTS REPRESENTS INDIVIDUALA AGED 2-19 YEARS EXCLUSIVE. Neut% 80.9 % 37.0-92.0 [facility] ([facility] NORMAL RANGES Age WBC RBC HGB HCT [...] HCT IS 5% LESS SOURCE FOR DATA: [employer] 1800 OPERATION MANUAL( AUTOMATED BLOOD COUNTS AND [...] DESIRABLE: <130 MG/DL <110 MG/DL BORDERLINE-HIGH RISK: 130- 159 MG/DL 110-129 MG/DL HIGH RISK: >160 MG/DL >130 MG/DL *CHILDREN AND ADOLESCENTS REPRESENTS INDIVIDUALA AGED 2-19 YEARS EXCLUSIVE. Lym# 1.0 10E3/uL 0.6-4.1 [facility] ([facility] NORMAL RANGES Age WBC RBC HGB HCT [...] HCT IS 5% LESS SOURCE FOR DATA: [employer] 1800 OPERATION MANUAL( AUTOMATED BLOOD COUNTS AND [...] DESIRABLE: <130 MG/DL <110 MG/DL BORDERLINE-HIGH RISK: 130- 159 MG/DL 110-129 MG/DL HIGH RISK: >160 MG/DL >130 MG/DL *CHILDREN AND ADOLESCENTS REPRESENTS INDIVIDUALA AGED 2-19 YEARS EXCLUSIVE. Neut# 8.1 % 2.0-7.8 Above high normal [facility] ([facility] NORMAL RANGES Age WBC RBC HGB HCT [...] HCT IS 5% LESS SOURCE FOR DATA: [employer] 1800 OPERATION MANUAL( AUTOMATED BLOOD COUNTS AND [...] DESIRABLE: <130 MG/DL <110 MG/DL BORDERLINE-HIGH RISK: 130- 159 MG/DL 110-129 MG/DL HIGH RISK: >160 MG/DL >130 MG/DL *CHILDREN AND ADOLESCENTS REPRESENTS INDIVIDUALA AGED 2-19 YEARS EXCLUSIVE. MXD# 1.0 10E3/uL 0.0-1.8 [facility] ([facility] NORMAL RANGES Age WBC RBC HGB HCT [...] HCT IS 5% LESS SOURCE FOR DATA: [employer] 1800 OPERATION MANUAL( AUTOMATED BLOOD COUNTS AND [...] DESIRABLE: <130 MG/DL <110 MG/DL BORDERLINE-HIGH RISK: 130- 159 MG/DL 110-129 MG/DL HIGH RISK: >160 MG/DL >130 MG/DL *CHILDREN AND ADOLESCENTS REPRESENTS INDIVIDUALA AGED 2-19 YEARS EXCLUSIVE. MPV 11.2 fL 9.0-13.0 [facility] ([facility] NORMAL RANGES Age WBC RBC HGB HCT [...] DESIRABLE: <130 MG/DL <110 MG/DL BORDERLINE-HIGH RISK: 130- 159 MG/DL 110-129 MG/DL HIGH RISK: >160 MG/DL >130 MG/DL *CHILDREN AND ADOLESCENTS REPRESENTS INDIVIDUALA AGED 2-19 YEARS EXCLUSIVE. ID Date Data Source [id number] 02/15/2021 02:33:00 PM EDT [facility] ([facility] Name Value Range Interpretation Code Description Data Izabela rce(s) Supporting Document(s) Chol 216 mg/dL 0-200 Above high normal [facility] ([facility] NORMAL RANGES Age WBC RBC HGB HCT [...] HCT IS 5% LESS SOURCE FOR DATA: [employer] 1800 OPERATION MANUAL( AUTOMATED BLOOD COUNTS [...] DESIRABLE: <130 MG/DL <110 MG/DL BORDERLINE-HIGH RISK: 130- 159 MG/DL 110-129 MG/DL HIGH RISK: >160 MG/DL >130 MG/DL *CHILDREN AND ADOLESCENTS REPRESENTS INDIVIDUALA AGED 2-19 YEARS EXCLUSIVE. Trig 165 mg/dL 40-200 [facility] NORMAL RANGES Age WBC RBC HGB HCT [...] HCT IS 5% LESS SOURCE FOR DATA: [employer] 1800 OPERATION MANUAL( AUTOMATED BLOOD COUNTS AND [...] DESIRABLE: <130 MG/DL <110 MG/DL BORDERLINE-HIGH RISK: 130- 159 MG/DL 110-129 MG/DL HIGH RISK: >160 MG/DL >130 MG/DL *CHILDREN AND ADOLESCENTS REPRESENTS INDIVIDUALA AGED 2-19 YEARS EXCLUSIVE. Cholesterol in HDL [Mass/volume] in Serum or Plasma 72 mg/dL 45-65 Above high normal [facility] ([facility] NORMAL RANGES Age WBC RBC HGB HCT [...] HCT IS 5% LESS SOURCE FOR DATA: [employer] 1800 OPERATION MANUAL( AUTOMATED BLOOD COUNTS AND [...] DESIRABLE: <130 MG/DL <110 MG/DL BORDERLINE-HIGH RISK: 130- 159 MG/DL 110-129 MG/DL HIGH RISK: >160 MG/DL >130 MG/DL *CHILDREN AND ADOLESCENTS REPRESENTS INDIVIDUALA AGED 2-19 YEARS EXCLUSIVE. LDL_C 112 Calc 75-129 [facility] ([facility] NORMAL RANGES Age WBC RBC HGB HCT [...] HCT IS 5% LESS SOURCE FOR DATA: [employer] 1800 OPERATION MANUAL( AUTOMATED BLOOD COUNTS AND [...] DESIRABLE: <130 MG/DL <110 MG/DL BORDERLINE-HIGH RISK: 130- 159 MG/DL 110-129 MG/DL HIGH RISK: >160 MG/DL >130 MG/DL *CHILDREN AND ADOLESCENTS REPRESENTS INDIVIDUALA AGED 2-19 YEARS EXCLUSIVE. Cho/HDL Ratio 3.0 [facility] NORMAL RANGES Age WBC RBC HGB HCT [...] HCT IS 5% LESS SOURCE FOR DATA: [employer] 1800 OPERATION MANUAL( AUTOMATED BLOOD COUNTS AND [...] DESIRABLE: <130 MG/DL <110 MG/DL BORDERLINE-HIGH RISK: 130- 159 MG/DL 110-129 MG/DL HIGH RISK: >160 MG/DL >130 MG/DL *CHILDREN AND ADOLESCENTS REPRESENTS INDIVIDUALA AGED 2-19 YEARS EXCLUSIVE. ID Date Data Source [id number] 02/15/2021 02:33:00 PM EDT [facility] ([facility] Name Value Range Interpretation Code Description Data Izabela rce(s) Supporting Document(s) Glu 237 mg/dL 70-110 Above high normal [facility] ([facility] NORMAL RANGES Age WBC RBC HGB HCT [...] HCT IS 5% LESS SOURCE FOR DATA: [employer] 1800 OPERATION MANUAL( AUTOMATED BLOOD COUNTS AND [...] DESIRABLE: <130 MG/DL <110 MG/DL BORDERLINE-HIGH RISK: 130- 159 MG/DL 110-129 MG/DL HIGH RISK: >160 MG/DL >130 MG/DL *CHILDREN AND ADOLESCENTS REPRESENTS INDIVIDUALA AGED 2-19 YEARS EXCLUSIVE. BUN 27 mg/dL 8-23 Above high normal [facility] ([facility] NORMAL RANGES Age WBC RBC HGB HCT [...] HCT IS 5% LESS SOURCE FOR DATA: [employer] 1800 OPERATION MANUAL( AUTOMATED BLOOD COUNTS AND [...] DESIRABLE: <130 MG/DL <110 MG/DL BORDERLINE-HIGH RISK: 130- 159 MG/DL 110-129 MG/DL HIGH RISK: >160 MG/DL >130 MG/DL *CHILDREN AND ADOLESCENTS REPRESENTS INDIVIDUALA AGED 2-19 YEARS EXCLUSIVE. BUN/Creatinine Ratio 32.8 CALC [facility] ([facility] NORMAL RANGES Age WBC RBC HGB HCT [...] HCT IS 5% LESS SOURCE FOR DATA: [employer] DYN 1800 OPERATION MANUAL( AUTOMATED BLOOD COUNTS [...] DESIRABLE: <130 MG/DL <110 MG/DL BORDERLINE-HIGH RISK: 130- 159 MG/DL 110-129 MG/DL HIGH RISK: >160 MG/DL >130 MG/DL *CHILDREN AND ADOLESCENTS REPRESENTS INDIVIDUALA AGED 2-19 YEARS EXCLUSIVE. Creat 0.8 mg/dL 0.5-1.0 [facility] ([facility] NORMAL RANGES Age WBC RBC HGB HCT [...] HCT IS 5% LESS SOURCE FOR DATA: [employer] 1800 OPERATION MANUAL( AUTOMATED BLOOD COUNTS AND [...] DESIRABLE: <130 MG/DL <110 MG/DL BORDERLINE-HIGH RISK: 130- 159 MG/DL 110-129 MG/DL HIGH RISK: >160 MG/DL >130 MG/DL *CHILDREN AND ADOLESCENTS REPRESENTS INDIVIDUALA AGED 2-19 YEARS EXCLUSIVE. K 4.3 mmol/L 3.5-5.1 [facility] ([facility] NORMAL RANGES Age WBC RBC HGB HCT [...] HCT IS 5% LESS SOURCE FOR DATA: [employer] 1800 OPERATION MANUAL( AUTOMATED BLOOD COUNTS AND [...] DESIRABLE: <130 MG/DL <110 MG/DL BORDERLINE-HIGH RISK: 130- 159 MG/DL 110-129 MG/DL HIGH RISK: >160 MG/DL >130 MG/DL *CHILDREN AND ADOLESCENTS REPRESENTS INDIVIDUALA AGED 2-19 YEARS EXCLUSIVE. Na 139 mmol/L 136-145 [facility] NORMAL RANGES Age WBC RBC HGB HCT [...] HCT IS 5% LESS SOURCE FOR DATA: [employer] DYN 1800 OPERATION MANUAL( AUTOMATED BLOOD COUNTS [...] DESIRABLE: <130 MG/DL <110 MG/DL BORDERLINE-HIGH RISK: 130- 159 MG/DL 110-129 MG/DL HIGH RISK: >160 MG/DL >130 MG/DL *CHILDREN AND ADOLESCENTS REPRESENTS INDIVIDUALA AGED 2-19 YEARS EXCLUSIVE. CL 96.4 mmol/L 98.0-107.0 Below low normal [facility] ([facility] NORMAL RANGES Age WBC RBC HGB HCT [...] HCT IS 5% LESS SOURCE FOR DATA: [employer] 1800 OPERATION MANUAL( AUTOMATED BLOOD COUNTS AND [...] DESIRABLE: <130 MG/DL <110 MG/DL BORDERLINE-HIGH RISK: 130- 159 MG/DL 110-129 MG/DL HIGH RISK: >160 MG/DL >130 MG/DL *CHILDREN AND ADOLESCENTS REPRESENTS INDIVIDUALA AGED 2-19 YEARS EXCLUSIVE. Co2 33.1 mmol/L 22.0-29.0 Above high normal [facility] ([facility] NORMAL RANGES Age WBC RBC HGB HCT [...] HCT IS 5% LESS SOURCE FOR DATA: [employer] 1800 OPERATION MANUAL( AUTOMATED BLOOD COUNTS AND [...] DESIRABLE: <130 MG/DL <110 MG/DL BORDERLINE-HIGH RISK: 130- 159 MG/DL 110-129 MG/DL HIGH RISK: >160 MG/DL >130 MG/DL *CHILDREN AND ADOLESCENTS REPRESENTS INDIVIDUALA AGED 2-19 YEARS EXCLUSIVE. CA 9.5 mg/dL 8.6-10.2 [facility] ([facility] NORMAL RANGES Age WBC RBC HGB HCT [...] HCT IS 5% LESS SOURCE FOR DATA: [employer] DYN 1800 OPERATION MANUAL( AUTOMATED BLOOD COUNTS [...] DESIRABLE: <130 MG/DL <110 MG/DL BORDERLINE-HIGH RISK: 130- 159 MG/DL 110-129 MG/DL HIGH RISK: >160 MG/DL >130 MG/DL *CHILDREN AND ADOLESCENTS REPRESENTS INDIVIDUALA AGED 2-19 YEARS EXCLUSIVE. TP 5.7 g/dL 6.6-8.7 Below low normal [facility] ( [facility] NORMAL RANGES Age WBC RBC HGB HCT [...] HCT IS 5% LESS SOURCE FOR DATA: [employer] 1800 OPERATION MANUAL( AUTOMATED BLOOD COUNTS AND [...] DESIRABLE: <130 MG/DL <110 MG/DL BORDERLINE-HIGH RISK: 130- 159 MG/DL 110-129 MG/DL HIGH RISK: >160 MG/DL >130 MG/DL *CHILDREN AND ADOLESCENTS REPRESENTS INDIVIDUALA AGED 2-19 YEARS EXCLUSIVE. Alb 4.0 g/dL 3.4-4.8 [facility] NORMAL RANGES Age WBC RBC HGB HCT [...] HCT IS 5% LESS SOURCE FOR DATA: [employer] 1800 OPERATION MANUAL( AUTOMATED BLOOD COUNTS AND [...] DESIRABLE: <130 MG/DL <110 MG/DL BORDERLINE-HIGH RISK: 130- 159 MG/DL 110-129 MG/DL HIGH RISK: >160 MG/DL >130 MG/DL *CHILDREN AND ADOLESCENTS REPRESENTS INDIVIDUALA AGED 2-19 YEARS EXCLUSIVE. A/G Ratio 2.3 [facility] ([facility] NORMAL RANGES Age WBC RBC HGB HCT [...] HCT IS 5% LESS SOURCE FOR DATA: [employer] 1800 OPERATION MANUAL( AUTOMATED BLOOD COUNTS AND [...] DESIRABLE: <130 MG/DL <110 MG/DL BORDERLINE-HIGH RISK: 130- 159 MG/DL 110-129 MG/DL HIGH RISK: >160 MG/DL >130 MG/DL *CHILDREN AND ADOLESCENTS REPRESENTS INDIVIDUALA AGED 2-19 YEARS EXCLUSIVE. Globulin 1.8 [facility] ([facility] NORMAL RANGES Age WBC RBC HGB HCT [...] HCT IS 5% LESS SOURCE FOR DATA: [employer] 1800 OPERATION MANUAL( AUTOMATED BLOOD COUNTS AND [...] DESIRABLE: <130 MG/DL <110 MG/DL BORDERLINE-HIGH RISK: 130- 159 MG/DL 110-129 MG/DL HIGH RISK: >160 MG/DL >130 MG/DL *CHILDREN AND ADOLESCENTS REPRESENTS INDIVIDUALA AGED 2-19 YEARS EXCLUSIVE. Alp 61.9 U/L 35-129 [facility] NORMAL RANGES Age WBC RBC HGB HCT [...] HCT IS 5% LESS SOURCE FOR DATA: [employer] 1800 OPERATION MANUAL( AUTOMATED BLOOD COUNTS AND [...] DESIRABLE: <130 MG/DL <110 MG/DL BORDERLINE-HIGH RISK: 130- 159 MG/DL 110-129 MG/DL HIGH RISK: >160 MG/DL >130 MG/DL *CHILDREN AND ADOLESCENTS REPRESENTS INDIVIDUALA AGED 2-19 YEARS EXCLUSIVE. Ast (Sgot) 9 U/L 0-40 [facility] ([facility] NORMAL RANGES Age WBC RBC HGB HCT [...] HCT IS 5% LESS SOURCE FOR DATA: [employer] 1800 OPERATION MANUAL( AUTOMATED BLOOD COUNTS AND [...] DESIRABLE: <130 MG/DL <110 MG/DL BORDERLINE-HIGH RISK: 130- 159 MG/DL 110-129 MG/DL HIGH RISK: >160 MG/DL >130 MG/DL *CHILDREN AND ADOLESCENTS REPRESENTS INDIVIDUALA AGED 2-19 YEARS EXCLUSIVE. Alt (SGPT) 9 U/L 0-41 [facility] ([facility] NORMAL RANGES Age WBC RBC HGB HCT [...] HCT IS 5% LESS SOURCE FOR DATA: [employer] 1800 OPERATION MANUAL( AUTOMATED BLOOD COUNTS AND [...] DESIRABLE: <130 MG/DL <110 MG/DL BORDERLINE-HIGH RISK: 130- 159 MG/DL 110-129 MG/DL HIGH RISK: >160 MG/DL >130 MG/DL *CHILDREN AND ADOLESCENTS REPRESENTS INDIVIDUALA AGED 2-19 YEARS EXCLUSIVE. Osmolality-Calculated 291.3 CALC [facility] ([facility] NORMAL RANGES Age WBC RBC HGB HCT [...] HCT IS 5% LESS SOURCE FOR DATA: [employer] 1800 OPERATION MANUAL( AUTOMATED BLOOD COUNTS AND [...] DESIRABLE: <130 MG/DL <110 MG/DL BORDERLINE-HIGH RISK: 130- 159 MG/DL 110-129 MG/DL HIGH RISK: >160 MG/DL >130 MG/DL *CHILDREN AND ADOLESCENTS REPRESENTS INDIVIDUALA AGED 2-19 YEARS EXCLUSIVE. Tbili 0.22 mg/dL 0.0-1.2 [facility] ([facility] NORMAL RANGES Age WBC RBC HGB HCT [...] HCT IS 5% LESS SOURCE FOR DATA: [employer] 1800 OPERATION MANUAL( AUTOMATED BLOOD COUNTS AND [...] DESIRABLE: <130 MG/DL <110 MG/DL BORDERLINE-HIGH RISK: 130- 159 MG/DL 110-129 MG/DL HIGH RISK: >160 MG/DL >130 MG/DL *CHILDREN AND ADOLESCENTS REPRESENTS INDIVIDUALA AGED 2-19 YEARS EXCLUSIVE. Anion Gap 14 mmol/L [facility] ([facility] NORMAL RANGES Age WBC RBC HGB HCT [...] HCT IS 5% LESS SOURCE FOR DATA: [employer] 1800 OPERATION MANUAL( AUTOMATED BLOOD COUNTS AND [...] DESIRABLE: <130 MG/DL <110 MG/DL BORDERLINE-HIGH RISK: 130- 159 MG/DL 110-129 MG/DL HIGH RISK: >160 MG/DL >130 MG/DL *CHILDREN AND ADOLESCENTS REPRESENTS INDIVIDUALA AGED 2-19 YEARS EXCLUSIVE. eGFR 81 # [facility] ( [facility] CKD-EPI eGFR Non-Afr. Uruguayan 70 # [facility] ([facility] CKD-EPI ID Date Data Source [id number] 11/11/2020 02:21:00 PM EST [facility] ([facility] Name Value Range Interpretation Code Description Data Izabela rce(s) Supporting Document(s) Chol 227 mg/dL 0-200 Above high normal [facility] ([facility] NORMAL RANGES Age WBC RBC HGB HCT [...] HCT IS 5% LESS SOURCE FOR DATA: [employer] DYN 1800 OPERATION MANUAL( AUTOMATED BLOOD COUNTS [...] DESIRABLE: <130 MG/DL <110 MG/DL BORDERLINE-HIGH RISK: 130- 159 MG/DL 110-129 MG/DL HIGH RISK: >160 MG/DL >130 MG/DL *CHILDREN AND ADOLESCENTS REPRESENTS INDIVIDUALA AGED 2-19 YEARS EXCLUSIVE. Cholesterol in HDL [Mass/volume] in Serum or Plasma 77 mg/dL 45-65 Above high normal [facility] ([facility] NORMAL RANGES Age WBC RBC HGB HCT [...] HCT IS 5% LESS SOURCE FOR DATA: [employer] 1800 OPERATION MANUAL( AUTOMATED BLOOD COUNTS AND [...] DESIRABLE: <130 MG/DL <110 MG/DL BORDERLINE-HIGH RISK: 130- 159 MG/DL 110-129 MG/DL HIGH RISK: >160 MG/DL >130 MG/DL *CHILDREN AND ADOLESCENTS REPRESENTS INDIVIDUALA AGED 2-19 YEARS EXCLUSIVE. Trig 108 mg/dL 40-200 [facility] ([facility] NORMAL RANGES Age WBC RBC HGB HCT [...] HCT IS 5% LESS SOURCE FOR DATA: [employer] 1800 OPERATION MANUAL( AUTOMATED BLOOD COUNTS AND [...] DESIRABLE: <130 MG/DL <110 MG/DL BORDERLINE-HIGH RISK: 130- 159 MG/DL 110-129 MG/DL HIGH RISK: >160 MG/DL >130 MG/DL *CHILDREN AND ADOLESCENTS REPRESENTS INDIVIDUALA AGED 2-19 YEARS EXCLUSIVE. LDL_C 128 Calc 75-129 [facility] ([facility] NORMAL RANGES Age WBC RBC HGB HCT [...] HCT IS 5% LESS SOURCE FOR DATA: [employer] 1800 OPERATION MANUAL( AUTOMATED BLOOD COUNTS AND [...] DESIRABLE: <130 MG/DL <110 MG/DL BORDERLINE-HIGH RISK: 130- 159 MG/DL 110-129 MG/DL HIGH RISK: >160 MG/DL >130 MG/DL *CHILDREN AND ADOLESCENTS REPRESENTS INDIVIDUALA AGED 2-19 YEARS EXCLUSIVE. Cho/HDL Ratio 3.0 Calc [facility] ([facility] NORMAL RANGES Age WBC RBC HGB HCT [...] HCT IS 5% LESS SOURCE FOR DATA: [employer] 1800 OPERATION MANUAL( AUTOMATED BLOOD COUNTS AND [...] DESIRABLE: <130 MG/DL <110 MG/DL BORDERLINE-HIGH RISK: 130- 159 MG/DL 110-129 MG/DL HIGH RISK: >160 MG/DL >130 MG/DL *CHILDREN AND ADOLESCENTS REPRESENTS INDIVIDUALA AGED 2-19 YEARS EXCLUSIVE. ID Date Data Source [id number] 11/11/2020 02:21:00 PM EST [facility] ([facility] Name Value Range Interpretation Code Description Data Izabela rce(s) Supporting Document(s) Hemoglobin A1c/Hemoglobin.total in Blood 7.1 % 4.50-6.20 Above high normal [facility] ([facility] ID Date Data Source [id number] 11/11/2020 02:21:00 PM EST [facility] ([facility] Name Value Range Interpretation Code Description Data Izabela rce(s) Supporting Document(s) Glu 227 mg/dL 70-110 Above high normal [facility] ([facility] NORMAL RANGES Age WBC RBC HGB HCT [...] HCT IS 5% LESS SOURCE FOR DATA: [employer] 1800 OPERATION MANUAL( AUTOMATED BLOOD COUNTS AND [...] DESIRABLE: <130 MG/DL <110 MG/DL BORDERLINE-HIGH RISK: 130- 159 MG/DL 110-129 MG/DL HIGH RISK: >160 MG/DL >130 MG/DL *CHILDREN AND ADOLESCENTS REPRESENTS INDIVIDUALA AGED 2-19 YEARS EXCLUSIVE. BUN 28 mg/dL 8-23 Above high normal [facility] NORMAL RANGES Age WBC RBC HGB HCT [...] HCT IS 5% LESS SOURCE FOR DATA: [employer] DYN 1800 OPERATION MANUAL( AUTOMATED BLOOD COUNTS [...] DESIRABLE: <130 MG/DL <110 MG/DL BORDERLINE-HIGH RISK: 130- 159 MG/DL 110-129 MG/DL HIGH RISK: >160 MG/DL >130 MG/DL *CHILDREN AND ADOLESCENTS REPRESENTS INDIVIDUALA AGED 2-19 YEARS EXCLUSIVE. Creat 0.8 mg/dL 0.5-1.0 [facility] ([facility] NORMAL RANGES Age WBC RBC HGB HCT [...] HCT IS 5% LESS SOURCE FOR DATA: [employer] 1800 OPERATION MANUAL( AUTOMATED BLOOD COUNTS AND [...] DESIRABLE: <130 MG/DL <110 MG/DL BORDERLINE-HIGH RISK: 130- 159 MG/DL 110-129 MG/DL HIGH RISK: >160 MG/DL >130 MG/DL *CHILDREN AND ADOLESCENTS REPRESENTS INDIVIDUALA AGED 2-19 YEARS EXCLUSIVE. BUN/Creatinine Ratio 35.0 [facility] NORMAL RANGES Age WBC RBC HGB HCT [...] HCT IS 5% LESS SOURCE FOR DATA: [employer] DYN 1800 OPERATION MANUAL( AUTOMATED BLOOD COUNTS [...] DESIRABLE: <130 MG/DL <110 MG/DL BORDERLINE-HIGH RISK: 130- 159 MG/DL 110-129 MG/DL HIGH RISK: >160 MG/DL >130 MG/DL *CHILDREN AND ADOLESCENTS REPRESENTS INDIVIDUALA AGED 2-19 YEARS EXCLUSIVE. K 4.7 mmol/L 3.5-5.1 [facility] ([facility] NORMAL RANGES Age WBC RBC HGB HCT [...] HCT IS 5% LESS SOURCE FOR DATA: [employer] 1800 OPERATION MANUAL( AUTOMATED BLOOD COUNTS AND [...] DESIRABLE: <130 MG/DL <110 MG/DL BORDERLINE-HIGH RISK: 130- 159 MG/DL 110-129 MG/DL HIGH RISK: >160 MG/DL >130 MG/DL *CHILDREN AND ADOLESCENTS REPRESENTS INDIVIDUALA AGED 2-19 YEARS EXCLUSIVE. Na 139 mmol/L 136-145 [facility] ([facility] NORMAL RANGES Age WBC RBC HGB HCT [...] HCT IS 5% LESS SOURCE FOR DATA: [employer] 1800 OPERATION MANUAL( AUTOMATED BLOOD COUNTS AND [...] DESIRABLE: <130 MG/DL <110 MG/DL BORDERLINE-HIGH RISK: 130- 159 MG/DL 110-129 MG/DL HIGH RISK: >160 MG/DL >130 MG/DL *CHILDREN AND ADOLESCENTS REPRESENTS INDIVIDUALA AGED 2-19 YEARS EXCLUSIVE. CL 100.7 mmol/L 98.0-107.0 [facility] ([facility] NORMAL RANGES Age WBC RBC HGB HCT [...] HCT IS 5% LESS SOURCE FOR DATA: [employer] DYN 1800 OPERATION MANUAL( AUTOMATED BLOOD COUNTS [...] DESIRABLE: <130 MG/DL <110 MG/DL BORDERLINE-HIGH RISK: 130- 159 MG/DL 110-129 MG/DL HIGH RISK: >160 MG/DL >130 MG/DL *CHILDREN AND ADOLESCENTS REPRESENTS INDIVIDUALA AGED 2-19 YEARS EXCLUSIVE. Co2 26.5 mmol/L 22.0-29.0 [facility] ([facility] NORMAL RANGES Age WBC RBC HGB HCT [...] HCT IS 5% LESS SOURCE FOR DATA: [employer] 1800 OPERATION MANUAL( AUTOMATED BLOOD COUNTS AND [...] DESIRABLE: <130 MG/DL <110 MG/DL BORDERLINE-HIGH RISK: 130- 159 MG/DL 110-129 MG/DL HIGH RISK: >160 MG/DL >130 MG/DL *CHILDREN AND ADOLESCENTS REPRESENTS INDIVIDUALA AGED 2-19 YEARS EXCLUSIVE. CA 8.9 mg/dL 8.6-10.2 [facility] ([facility] NORMAL RANGES Age WBC RBC HGB HCT [...] HCT IS 5% LESS SOURCE FOR DATA: [employer] 1800 OPERATION MANUAL( AUTOMATED BLOOD COUNTS AND [...] DESIRABLE: <130 MG/DL <110 MG/DL BORDERLINE-HIGH RISK: 130- 159 MG/DL 110-129 MG/DL HIGH RISK: >160 MG/DL >130 MG/DL *CHILDREN AND ADOLESCENTS REPRESENTS INDIVIDUALA AGED 2-19 YEARS EXCLUSIVE. TP 5.6 g/dL 6.6-8.7 Below low normal [facility] ( [facility] NORMAL RANGES Age WBC RBC HGB HCT [...] HCT IS 5% LESS SOURCE FOR DATA: [employer] 1800 OPERATION MANUAL( AUTOMATED BLOOD COUNTS AND [...] DESIRABLE: <130 MG/DL <110 MG/DL BORDERLINE-HIGH RISK: 130- 159 MG/DL 110-129 MG/DL HIGH RISK: >160 MG/DL >130 MG/DL *CHILDREN AND ADOLESCENTS REPRESENTS INDIVIDUALA AGED 2-19 YEARS EXCLUSIVE. Alb 4.0 g/dL 3.4-4.8 [facility] ([facility] NORMAL RANGES Age WBC RBC HGB HCT [...] HCT IS 5% LESS SOURCE FOR DATA: [employer] 1800 OPERATION MANUAL( AUTOMATED BLOOD COUNTS AND [...] DESIRABLE: <130 MG/DL <110 MG/DL BORDERLINE-HIGH RISK: 130- 159 MG/DL 110-129 MG/DL HIGH RISK: >160 MG/DL >130 MG/DL *CHILDREN AND ADOLESCENTS REPRESENTS INDIVIDUALA AGED 2-19 YEARS EXCLUSIVE. A/G Ratio 2.4 CALC [facility] ([facility] NORMAL RANGES Age WBC RBC HGB HCT [...] DESIRABLE: <130 MG/DL <110 MG/DL BORDERLINE-HIGH RISK: 130- 159 MG/DL 110-129 MG/DL HIGH RISK: >160 MG/DL >130 MG/DL *CHILDREN AND ADOLESCENTS REPRESENTS INDIVIDUALA AGED 2-19 YEARS EXCLUSIVE. Alp 58.9 U/L 35-129 [facility] ([facility] NORMAL RANGES Age WBC RBC HGB HCT [...] HCT IS 5% LESS SOURCE FOR DATA: [employer] 1800 OPERATION MANUAL( AUTOMATED BLOOD COUNTS AND [...] DESIRABLE: <130 MG/DL <110 MG/DL BORDERLINE-HIGH RISK: 130- 159 MG/DL 110-129 MG/DL HIGH RISK: >160 MG/DL >130 MG/DL *CHILDREN AND ADOLESCENTS REPRESENTS INDIVIDUALA AGED 2-19 YEARS EXCLUSIVE. Globulin 1.6 CALC [facility] ([facility] NORMAL RANGES Age WBC RBC HGB HCT [...] HCT IS 5% LESS SOURCE FOR DATA: [employer] 1800 OPERATION MANUAL( AUTOMATED BLOOD COUNTS AND [...] DESIRABLE: <130 MG/DL <110 MG/DL BORDERLINE-HIGH RISK: 130- 159 MG/DL 110-129 MG/DL HIGH RISK: >160 MG/DL >130 MG/DL *CHILDREN AND ADOLESCENTS REPRESENTS INDIVIDUALA AGED 2-19 YEARS EXCLUSIVE. Alt (SGPT) 9 U/L 0-41 [facility] NORMAL RANGES Age WBC RBC HGB HCT [...] HCT IS 5% LESS SOURCE FOR DATA: [employer] DYN 1800 OPERATION MANUAL( AUTOMATED BLOOD COUNTS [...] DESIRABLE: <130 MG/DL <110 MG/DL BORDERLINE-HIGH RISK: 130- 159 MG/DL 110-129 MG/DL HIGH RISK: >160 MG/DL >130 MG/DL *CHILDREN AND ADOLESCENTS REPRESENTS INDIVIDUALA AGED 2-19 YEARS EXCLUSIVE. Ast (Sgot) 10 U/L 0-40 [facility] NORMAL RANGES Age WBC RBC HGB HCT [...] HCT IS 5% LESS SOURCE FOR DATA: [employer] 1800 OPERATION MANUAL( AUTOMATED BLOOD COUNTS AND [...] DESIRABLE: <130 MG/DL <110 MG/DL BORDERLINE-HIGH RISK: 130- 159 MG/DL 110-129 MG/DL HIGH RISK: >160 MG/DL >130 MG/DL *CHILDREN AND ADOLESCENTS REPRESENTS INDIVIDUALA AGED 2-19 YEARS EXCLUSIVE. Tbili 0.37 mg/dL 0.0-1.2 [facility] ([facility] NORMAL RANGES Age WBC RBC HGB HCT [...] HCT IS 5% LESS SOURCE FOR DATA: [employer] 1800 OPERATION MANUAL( AUTOMATED BLOOD COUNTS AND [...] DESIRABLE: <130 MG/DL <110 MG/DL BORDERLINE-HIGH RISK: 130- 159 MG/DL 110-129 MG/DL HIGH RISK: >160 MG/DL >130 MG/DL *CHILDREN AND ADOLESCENTS REPRESENTS INDIVIDUALA AGED 2-19 YEARS EXCLUSIVE. Osmolality-Calculated 289.5 CALC [facility] ([facility] NORMAL RANGES Age WBC RBC HGB HCT [...] HCT IS 5% LESS SOURCE FOR DATA: [employer] 1800 OPERATION MANUAL( AUTOMATED BLOOD COUNTS AND [...] DESIRABLE: <130 MG/DL <110 MG/DL BORDERLINE-HIGH RISK: 130- 159 MG/DL 110-129 MG/DL HIGH RISK: >160 MG/DL >130 MG/DL *CHILDREN AND ADOLESCENTS REPRESENTS INDIVIDUALA AGED 2-19 YEARS EXCLUSIVE. Anion Gap 16 mmol/L [facility] ([facility] NORMAL RANGES Age WBC RBC HGB HCT [...] HCT IS 5% LESS SOURCE FOR DATA: [employer] 1800 OPERATION MANUAL( AUTOMATED BLOOD COUNTS AND [...] DESIRABLE: <130 MG/DL <110 MG/DL BORDERLINE-HIGH RISK: 130- 159 MG/DL 110-129 MG/DL HIGH RISK: >160 MG/DL >130 MG/DL *CHILDREN AND ADOLESCENTS REPRESENTS INDIVIDUALA AGED 2-19 YEARS EXCLUSIVE. eGFR 82 # [facility] ( [facility] CKD-EPI eGFR Non-Afr. Uruguayan 71 # [facility] ([facility] CKD-EPI ID Date Data Source [id number] 11/11/2020 02:21:00 PM EST [facility] ([facility] Name Value Range Interpretation Code Description Data Izabela rce(s) Supporting Document(s) WBC 8.3 10E3/uL 4.1-10.9 [facility] ([facility] NORMAL RANGES Age WBC RBC HGB HCT [...] DESIRABLE: <130 MG/DL <110 MG/DL BORDERLINE-HIGH RISK: 130- 159 MG/DL 110-129 MG/DL HIGH RISK: >160 MG/DL >130 MG/DL *CHILDREN AND ADOLESCENTS REPRESENTS INDIVIDUALA AGED 2-19 YEARS EXCLUSIVE. RBC 3.98 10E6/uL 4.20-6.30 Below low normal [facility] ([facility] NORMAL RANGES Age WBC RBC HGB HCT [...] HCT IS 5% LESS SOURCE FOR DATA: [employer] 1800 OPERATION MANUAL( AUTOMATED BLOOD COUNTS AND [...] DESIRABLE: <130 MG/DL <110 MG/DL BORDERLINE-HIGH RISK: 130- 159 MG/DL 110-129 MG/DL HIGH RISK: >160 MG/DL >130 MG/DL *CHILDREN AND ADOLESCENTS REPRESENTS INDIVIDUALA AGED 2-19 YEARS EXCLUSIVE. HGB 11.3 g/dL 12.0-18.0 Below low normal [facility] ( [facility] NORMAL RANGES Age WBC RBC HGB HCT [...] HCT IS 5% LESS SOURCE FOR DATA: [employer] 1800 OPERATION MANUAL( AUTOMATED BLOOD COUNTS AND [...] DESIRABLE: <130 MG/DL <110 MG/DL BORDERLINE-HIGH RISK: 130- 159 MG/DL 110-129 MG/DL HIGH RISK: >160 MG/DL >130 MG/DL *CHILDREN AND ADOLESCENTS REPRESENTS INDIVIDUALA AGED 2-19 YEARS EXCLUSIVE. HCT 37.0 % 37.0-51.0 [facility] ([facility] NORMAL RANGES Age WBC RBC HGB HCT [...] HCT IS 5% LESS SOURCE FOR DATA: [employer] DYN 1800 OPERATION MANUAL( AUTOMATED BLOOD COUNTS [...] DESIRABLE: <130 MG/DL <110 MG/DL BORDERLINE-HIGH RISK: 130- 159 MG/DL 110-129 MG/DL HIGH RISK: >160 MG/DL >130 MG/DL *CHILDREN AND ADOLESCENTS REPRESENTS INDIVIDUALA AGED 2-19 YEARS EXCLUSIVE. MCV 93.0 fL 80.0-97.0 [facility] ([facility] NORMAL RANGES Age WBC RBC HGB HCT [...] HCT IS 5% LESS SOURCE FOR DATA: [employer] 1800 OPERATION MANUAL( AUTOMATED BLOOD COUNTS AND [...] DESIRABLE: <130 MG/DL <110 MG/DL BORDERLINE-HIGH RISK: 130- 159 MG/DL 110-129 MG/DL HIGH RISK: >160 MG/DL >130 MG/DL *CHILDREN AND ADOLESCENTS REPRESENTS INDIVIDUALA AGED 2-19 YEARS EXCLUSIVE. MCH 28.4 pg 26.0-32.0 [facility] ([facility] NORMAL RANGES Age WBC RBC HGB HCT [...] HCT IS 5% LESS SOURCE FOR DATA: [employer] 1800 OPERATION MANUAL( AUTOMATED BLOOD COUNTS AND [...] DESIRABLE: <130 MG/DL <110 MG/DL BORDERLINE-HIGH RISK: 130- 159 MG/DL 110-129 MG/DL HIGH RISK: >160 MG/DL >130 MG/DL *CHILDREN AND ADOLESCENTS REPRESENTS INDIVIDUALA AGED 2-19 YEARS EXCLUSIVE. MCHC 30.5 g/dL 31.0-36.0 Below low normal [facility] ( [facility] NORMAL RANGES Age WBC RBC HGB HCT [...] HCT IS 5% LESS SOURCE FOR DATA: [employer] 1800 OPERATION MANUAL( AUTOMATED BLOOD COUNTS AND [...] DESIRABLE: <130 MG/DL <110 MG/DL BORDERLINE-HIGH RISK: 130- 159 MG/DL 110-129 MG/DL HIGH RISK: >160 MG/DL >130 MG/DL *CHILDREN AND ADOLESCENTS REPRESENTS INDIVIDUALA AGED 2-19 YEARS EXCLUSIVE. PLT 311 10E3/uL 140-440 [facility] ([facility] NORMAL RANGES Age WBC RBC HGB HCT [...] HCT IS 5% LESS SOURCE FOR DATA: [employer] 1800 OPERATION MANUAL( AUTOMATED BLOOD COUNTS AND [...] DESIRABLE: <130 MG/DL <110 MG/DL BORDERLINE-HIGH RISK: 130- 159 MG/DL 110-129 MG/DL HIGH RISK: >160 MG/DL >130 MG/DL *CHILDREN AND ADOLESCENTS REPRESENTS INDIVIDUALA AGED 2-19 YEARS EXCLUSIVE. RDW-CV 13.8 % 11.5-14.5 [facility] ([facility] NORMAL RANGES Age WBC RBC HGB HCT [...] HCT IS 5% LESS SOURCE FOR DATA: [employer] 1800 OPERATION MANUAL( AUTOMATED BLOOD COUNTS AND [...] DESIRABLE: <130 MG/DL <110 MG/DL BORDERLINE-HIGH RISK: 130- 159 MG/DL 110-129 MG/DL HIGH RISK: >160 MG/DL >130 MG/DL *CHILDREN AND ADOLESCENTS REPRESENTS INDIVIDUALA AGED 2-19 YEARS EXCLUSIVE. Lym% 10.2 % 10.0-58.5 [facility] ([facility] NORMAL RANGES Age WBC RBC HGB HCT [...] HCT IS 5% LESS SOURCE FOR DATA: [employer] 1800 OPERATION MANUAL( AUTOMATED BLOOD COUNTS AND [...] DESIRABLE: <130 MG/DL <110 MG/DL BORDERLINE-HIGH RISK: 130- 159 MG/DL 110-129 MG/DL HIGH RISK: >160 MG/DL >130 MG/DL *CHILDREN AND ADOLESCENTS REPRESENTS INDIVIDUALA AGED 2-19 YEARS EXCLUSIVE. Neut% 85.1 % 37.0-92.0 [facility] ([facility] NORMAL RANGES Age WBC RBC HGB HCT [...] HCT IS 5% LESS SOURCE FOR DATA: [employer] DYN 1800 OPERATION MANUAL( AUTOMATED BLOOD COUNTS [...] DESIRABLE: <130 MG/DL <110 MG/DL BORDERLINE-HIGH RISK: 130- 159 MG/DL 110-129 MG/DL HIGH RISK: >160 MG/DL >130 MG/DL *CHILDREN AND ADOLESCENTS REPRESENTS INDIVIDUALA AGED 2-19 YEARS EXCLUSIVE. Lym# 0.8 10E3/uL 0.6-4.1 [facility] ([facility] NORMAL RANGES Age WBC RBC HGB HCT [...] HCT IS 5% LESS SOURCE FOR DATA: [employer] 1800 OPERATION MANUAL( AUTOMATED BLOOD COUNTS AND [...] DESIRABLE: <130 MG/DL <110 MG/DL BORDERLINE-HIGH RISK: 130- 159 MG/DL 110-129 MG/DL HIGH RISK: >160 MG/DL >130 MG/DL *CHILDREN AND ADOLESCENTS REPRESENTS INDIVIDUALA AGED 2-19 YEARS EXCLUSIVE. MXD% 4.7 % 0.1-24.0 [facility] ([facility] NORMAL RANGES Age WBC RBC HGB HCT [...] HCT IS 5% LESS SOURCE FOR DATA: [employer] 1800 OPERATION MANUAL( AUTOMATED BLOOD COUNTS AND [...] DESIRABLE: <130 MG/DL <110 MG/DL BORDERLINE-HIGH RISK: 130- 159 MG/DL 110-129 MG/DL HIGH RISK: >160 MG/DL >130 MG/DL *CHILDREN AND ADOLESCENTS REPRESENTS INDIVIDUALA AGED 2-19 YEARS EXCLUSIVE. MXD# 0.4 10E3/uL 0.0-1.8 [facility] ([facility] NORMAL RANGES Age WBC RBC HGB HCT [...] HCT IS 5% LESS SOURCE FOR DATA: [employer] 1800 OPERATION MANUAL( AUTOMATED BLOOD COUNTS AND [...] DESIRABLE: <130 MG/DL <110 MG/DL BORDERLINE-HIGH RISK: 130- 159 MG/DL 110-129 MG/DL HIGH RISK: >160 MG/DL >130 MG/DL *CHILDREN AND ADOLESCENTS REPRESENTS INDIVIDUALA AGED 2-19 YEARS EXCLUSIVE. Neut# 7.1 % 2.0-7.8 [facility] ([facility] NORMAL RANGES Age WBC RBC HGB HCT [...] HCT IS 5% LESS SOURCE FOR DATA: [employer] 1800 OPERATION MANUAL( AUTOMATED BLOOD COUNTS AND [...] DESIRABLE: <130 MG/DL <110 MG/DL BORDERLINE-HIGH RISK: 130- 159 MG/DL 110-129 MG/DL HIGH RISK: >160 MG/DL >130 MG/DL *CHILDREN AND ADOLESCENTS REPRESENTS INDIVIDUALA AGED 2-19 YEARS EXCLUSIVE. MPV 11.3 fL 9.0-13.0 [facility] ([facility] NORMAL RANGES Age WBC RBC HGB HCT [...] HCT IS 5% LESS SOURCE FOR DATA: [employer] 1800 OPERATION MANUAL( AUTOMATED BLOOD COUNTS AND [...] DESIRABLE: <130 MG/DL <110 MG/DL BORDERLINE-HIGH RISK: 130- 159 MG/DL 110-129 MG/DL HIGH RISK: >160 MG/DL >130 MG/DL *CHILDREN AND ADOLESCENTS REPRESENTS INDIVIDUALA AGED 2-19 YEARS EXCLUSIVE. ID Date Data Source [id number] 10/07/2020 01:51:00 PM [facility]UAN [facility] ([facility] Name Value Range Interpretation Code Description Data Iazbela rce(s) Supporting Document(s) Comment 1 Laboratory test result [facility] ([facility] NORMAL RANGES Routine Non- Anticoagulant Therapy = 0.9 - 1.1 Routine Anticoagulat Therapy = 2.0 - 3.0 High Risk Anticoagulant Therapy = 3.0 - 4.5 QC Check Laboratory test result [facility] ([facility] NORMAL RANGES Routine Non- Anticoagulant Therapy = 0.9 - 1.1 Routine Anticoagulat Therapy = 2.0 - 3.0 High Risk Anticoagulant Therapy = 3.0 - 4.5 Prothrombin Time-Therapy 15.4 [facility] ([facility] NORMAL RANGES Routine Non- Anticoagulant Therapy = 0.9 - 1.1 Routine Anticoagulat Therapy = 2.0 - 3.0 High Risk Anticoagulant Therapy = 3.0 - 4.5 Dosage Laboratory test result [facility] ([facility] NORMAL RANGES Routine Non- Anticoagulant Therapy = 0.9 - 1.1 Routine Anticoagulat Therapy = 2.0 - 3.0 High Risk Anticoagulant Therapy = 3.0 - 4.5 INR in Platelet poor plasma by Coagulation assay 1.3 [facility] ([facility] NORMAL RANGES Routine Non- Anticoagulant Therapy = 0.9 - 1.1 Routine Anticoagulat Therapy = 2.0 - 3.0 High Risk Anticoagulant Therapy = 3.0 - 4.5 Recheck Laboratory test result [facility] ([facility] NORMAL RANGES Routine Non- Anticoagulant Therapy = 0.9 - 1.1 Routine Anticoagulat Therapy = 2.0 - 3.0 High Risk Anticoagulant Therapy = 3.0 - 4.5 ID Date Data Source [id number] 09/29/2020 01:45:00 PM EST [facility] ([facility] Name Value Range Interpretation Code Description Data Izabela rce(s) Supporting Document(s) Prothrombin Time-Therapy 12.4 [facility] ([facility] INR in Platelet poor plasma by Coagulation assay 1.0 [facility] ([facility] Dosage Laboratory test result [facility] ([facility] Recheck Laboratory test result [facility] ([facility] ID Date Data Source [id number] 09/26/2020 08:59:00 PM EST [facility] ([facility] Name Value Range Interpretation Code Description Data Izabela rce(s) Supporting Document(s) Prothrombin Time 13.2 s 12.5-14.3 Normal (applies to non-numeric results) [facility] ([facility] Partial Thromboplastin Time 28.0 s 24.2-38.5 Norm al (applies to non-numeric results) [facility] ([facility] ) Inr 0.98 Normal (applies to non-numeric resul ts) [facility] ([facility] THERAPUTIC HUMAN INR VALUES INDICATIONS NORMAL RANGES PROPHYLAXIS/TREATMENT OF: VENOUS THROMBOSIS 2.0-3.0 PULMONARY EMBOLISM 2.0-3.0 PREVENTION OF SYSTEMIC EMBOLISM FROM: TISSUE HEART VALVES 2.0-3.0 ACUTE MYOCARDIAL INFARCTION 2.0-3.0 VALVULAR HEART DISEASE 2.0-3.0 ATRIAL FIBRILLATION 2.0-3.0 MECHANICAL VALVES(HIGH RISK) 2.5-3.5 RECURRENT MYOCARDIAL INFARCTION 2.5-3.5 ID Date Data Source [id number] 09/26/2020 08:43:00 PM EST [facility] ([facility] Name Value Range Interpretation Code Description Data Izabela rce(s) Supporting Document(s) Laboratory test finding (navigational concept) 0.00 ng/mL 0 .00-0.08 Normal (applies to non-numeric results) [facility] ID Date Data Source [id number] 09/26/2020 08:43:00 PM EST [facility] ([facility] Name Value Range Interpretation Code Description Data Izabela rce(s) Supporting Document(s) Troponin I.cardiac [Mass/volume] in Serum or Plasma Laboratory test result [facility] ([facility] Laboratory test finding (navigational concept) 0.00 ng/mL 0 .00-0.08 Normal (applies to non-numeric results) [facility] ID Date Data Source [id number] 09/26/2020 08:42:00 PM EST [facility] ([facility] Name Value Range Interpretation Code Description Data Izabela rce(s) Supporting Document(s) Blood Culture Laboratory test result Normal (applies t o non-numeric results) [facility] ([facility] <content>GRAM STAIN G ZARA POSITIVE COCCI IN CLUSTERS</content>
<content>DATE POSITIVE DETECTED 09/28/20</content>
<content></content>
<content>ORGANISM 1: STAPHYLOCOCCUS EPIDERMIDIS</content>
<content></content>
<content></content>
<annika nt></content>
<content>ORGANISM 1: STAPHYLOCOCCUS EPIDERMIDIS</content>
<content></content>
<content>STAPHYLOCOCCUS EPIDERMIDIS: REACTION</content>
<content>ICR (INDUCIBLE CC RESISTANCE) IV ICR TEST RESULT</content>
<content>TETRACYCLINE PO 250 mg qid 2 S</content>
<content>PENICILLIN G IV 1 mu q6H >=0.5 R</content>
<content>PENICILLIN G IV 1 mu q6h >=0.5 R</content>
<content>PENICILLIN G PO 250mg q6h fasting >=0.5 R</content>
<content>TRIMETHOPRIM/SULFAMETHOXAZOLE IV 160mg TMP & 800mg SMXq6h 80 R</content>
<content>TRIMETHOPRIM/SULFAMETHOXAZOLE PO Bactrim DS Bid 80 R</content>
<content>ERYTHROMYCIN IV 500mg q6h >=8 R</content>
<content>ERYTHROMYCIN PO 500mg q6h >=8 R</content>
<content>GENTAMICIN IV 80mg q8h 8 I</content>
<content>CLINDAMYCIN IV 600mg q6h >=4 R</content>
<content>CLINDAMYCIN PO 150mg q6h >=4 R</content>
<content>OXACILLIN IV 500mg q6h >=4 R</content>
<content> VANCOMYCIN IV 500mg q8h 1 S</content>
<content>LINEZOLID (ZYVOX) IV 600MG Q12HR 2 S</content>
<content>LINEZOLID (ZYVOX) PO 600MG Q12HR 2 S</content>
<content>An isolate with a (+) POSITIVE ICR test is considered</content>
<content>CLINDAMYCIN RESISTANT; however, clindamycin may still</content>
<content>be effective in some patients.</content>
<content>An isolate with a (-) NEGATIVE ICR test is considered</content>
<content>CLIDAMYCIN SENSITIVE.</content>
<content></content> ID Date Data Source [id number] 09/26/2020 08:42:00 PM EST [facility] ([facility] Name Value Range Interpretation Code Description Data Izabela rce(s) Supporting Document(s) Natriuretic peptide.B prohormone N-Terminal [Mass/volu me] in Serum or Plasma 870 pg/mL Above high normal [facility] ([facility] Thyrotropin [Units/volume] in Serum or Plasma 2.140 uIU/ML 0. 358-3.740 Normal (applies to non-numeric results) [facility] ([facility] ID Date Data Source [id number] 09/26/2020 08:42:00 PM EST [facility] ([facility] Name Value Range Interpretation Code Description Data Izabela rce(s) Supporting Document(s) Blood Urea Nitrogen 17 mg/dL 7-18 Normal (applies to non-nume karyn results) [facility] ([facility] Glucose, Fasting 148 mg/dL 70-100 Above high normal M EDENT ([facility] Creatinine For GFR 0.64 mg/dL 0.55-1.30 Normal (applies to non -numeric results) [facility] ([facility] Glomerular Filtration Rate Laboratory test result Normal (applies to non- numeric results) [facility] ([facility] ) <content>Units are mL/min/1.73 m2</content>
<content></content>
<content>Chronic Kidney Disease Staging per NKF:</content>
<content></content>
<content>Stage I & II GFR >=60 Normal to Mildly Decreased</content>
<content>Stage III GFR 30- 59 Moderately Decreased</content>
<content>Stage IV GFR 15-29 Severely Decreased</content>
<content>Stage V GFR <15 Very Little GFR Left</content>
<content>ESRD GFR <15 on GLASS FITTER</content>
<content></content> Potassium Serum 4.0 meq/L 3.5-5.1 Normal (applies to non-numeric results) [facility] ([facility] Sodium Level 139 meq/L 136-145 Normal (applies to non-numeric res ults) [facility] ([facility] Carbon Dioxide Level 32 meq/L 21-32 Normal (applies to non-num yassine results) [facility] ([facility] Chloride Level 101 meq/L 98-107 Normal (applies to non-numeric r esults) [facility] ([facility] Anion Gap 6 meq/L 8-16 Below low normal [facility] ( [facility] Calcium Level 9.0 mg/dL 8.8-10.2 Normal (applies to non-numeric re sults) [facility] ([facility] ID Date Data Source [id number] 09/26/2020 08:42:00 PM EST [facility] ([facility] Name Value Range Interpretation Code Description Data Izabela rce(s) Supporting Document(s) Alt/SGPT 20 U/L 12-78 Normal (applies to non-numeric resul ts) [facility] ([facility] Ast/Sgot 9 U/L 7-37 Normal (applies to non-numeric resul ts) [facility] ([facility] Alkaline Phosphatase 64 U/L 45-117 Normal (applies to non-num yassine results) [facility] ([facility] Bilirubin,Total 0.8 mg/dL 0.2-1.0 Normal (applies to non-numeric results) [facility] ([facility] Total Protein 6.1 GM/DL 6.4-8.2 Below low normal [facility] T ([facility] Bilirubin,Direct 0.3 mg/dL 0.0-0.2 Above high normal M EDENT ([facility] Albumin/Globulin Ratio 1.3 1.2-2.2 Normal (applies to non-n umeric results) [facility] ([facility] Albumin 3.4 GM/DL 3.2-5.2 Normal (applies to non-numeric resul ts) [facility] ([facility] ID Date Data Source [id number] 09/26/2020 08:42:00 PM EST [facility] ([facility] Name Value Range Interpretation Code Description Data Izabela rce(s) Supporting Document(s) CK-MB Value Mass 1.0 ng/mL Normal (applies to non-numeric results) [facility] ([facility] CPK Creatine Phosphokinase 28 U/L 26-192 Samantha l (applies to non-numeric results) [facility] ) Troponin I Laboratory test result Normal (applies to non-n umeric results) [facility] ([facility] <content>Troponin I Reference Interval f or Siemens [place] LOCI:</content>
<content></content>
<content>99th Percentile= 0.00-0.045 ng/ml</content>
<content></content>
<content>Risk Stratification:</content>
<content><= 0.10 ng/ml Decreased Risk for Adverse Clinical</content>
<content>Events.</content>
<content>0.10-1.50 ng/ml Increased Risk for Adverse Clinical</content>
<content>Events. Evaluation of additional</content>
<content>criterion and/or repeat testing in 2-6</content>
<content>hours is suggested to rule out myocardial</content>
<content>damage.</content>
<content>>= 1.50 ng/ml Indicative of Myocardial Injury.</content>
<content></content> MB/CK Relative Index 3.57 Normal (applies to non-num yassine results) [facility] ([facility] <content>DIAGNOSIS CRITERIA</content>
<content>MMB ng/ml Relative Index (RI)</content>
<content>NON-AMI < or = 5 N/A</content>
<content>ALANIS ZONE > 5 < or = 4</content>
<content>AMI > 5 > 4</content>
<content></content> ID Date Data Source [id number] 09/26/2020 08:42:00 PM EST [facility] ([facility] Name Value Range Interpretation Code Description Data Izabela rce(s) Supporting Document(s) Lactate [Mass/volume] in Serum or Plasma 0.7 mmol/L 0.4-2.0 Normal (applies to non-numeric results) [facility] ([facility]) Y/N query for Sepsis Lactate Rule: Y ID Date Data Source [id number] 09/26/2020 08:42:00 PM EST [facility] ([facility] Name Value Range Interpretation Code Description Data Izabela rce(s) Supporting Document(s) White Blood Count 13.5 10 4.0-10.0 Above high normal [facility] ([facility] Red Blood Count 3.84 10 4.00-5.40 Below low normal [facility] ([facility] Hematocrit 37.3 % 36.0-47.0 Normal (applies to non-numeric resul ts) [facility] ([facility] Hemoglobin 11.1 g/dL 12.0-15.5 Below low normal [facility] ( [facility] Mean Corpuscular Hemoglobin 28.9 pg 27.0-33.0 Norm al (applies to non-numeric results) [facility] ([facility] ) Mean Corpuscular Volume 97.1 fl 80.0-96.0 Above high normal [facility] ([facility] Red Cell Distribution Width 14.4 % 11.5-14.5 Norm al (applies to non-numeric results) [facility] ([facility] ) Mean Corpuscular HGB Conc 29.8 g/dL 32.0-36.5 Below low normal [facility] ([facility] Neutrophils % 74.1 % 36.0-66.0 Above high normal MEDE NT ([facility] Platelet Count, Automated 393 10 150-450 Normal (applies to non-numeric results) [facility] ([facility] ) [place] % 9.3 % 0.0-5.0 Above high normal [facility] ([facility] Lymph % 14.2 % 24.0-44.0 Below low normal [facility] ( [facility] Baso % 0.5 % 0.0-1.0 Normal (applies to non-numeric resul ts) [facility] ([facility] Eos % 1.1 % 0.0-3.0 Normal (applies to non-numeric resul ts) [facility] ([facility] Nucleated Red Blood Cell % 0.0 % 0-0 Normal (applies to n on-numeric results) [facility] ([facility] Immature Granulocyte % 0.8 % 0-3.0 Normal (applies to non-n umeric results) [facility] ([facility] Neutrophils # 10.0 10 1.5-8.5 Above high normal MED[facility] NT ([facility] Lymph # 1.9 10 1.5-5.0 Normal (applies to non-numeric resul ts) [facility] ([facility] [place] # 1.3 10 0.0-0.8 Above high normal [facility] ([facility] Eos # 0.2 10 0.0-0.5 Normal (applies to non-numeric resul ts) [facility] ([facility] Baso # 0.1 10 0.0-0.2 Normal (applies to non-numeric resul ts) [facility] ([facility] ID Date Data Source [id number] 09/26/2020 08:26:00 PM EST [facility] ([facility] Name Value Range Interpretation Code Description Data Izabela rce(s) Supporting Document(s) Laboratory test finding (navigational concept) 7.325 units 7 .350-7.450 Below low normal [facility] ([facility] ) Laboratory test finding (navigational concept) 60.9 MMHG 3 5.0-45.0 Above upper panic limits [facility] ([facility] ) Laboratory test finding (navigational concept) 140.0 MMHG 8 0-105 Above high normal [facility] ([facility] ) Laboratory test finding (navigational concept) 34.0 mmol/L 2 3.0-27.0 Above high normal [facility] ([facility] ) Laboratory test finding (navigational concept) 31.7 mmol/L 2 2.0-26.0 Above high normal [facility] ([facility] ) Laboratory test finding (navigational concept) 6.0 mmol/L Above high normal [facility] ([facility] Laboratory test finding (navigational concept) 99 % 95-98 Above high normal [facility] ([facility] ID Date Data Source [id number] 09/11/2020 03:17:00 PM EDT [facility] ([facility] Name Value Range Interpretation Code Description Data Izabela rce(s) Supporting Document(s) INR in Platelet poor plasma by Coagulation assay 1.1 [facility] ([facility] Prothrombin Time-Therapy 12.7 MED[facility] T ([facility] Recheck Laboratory test result [facility] ([facility] Comment 1 Laboratory test result ME DENT ([facility] Dosage Laboratory test result [facility] ([facility] ID Date Data Source [id number] 08/26/2020 11:32:00 AM EDT [facility] ([facility] Name Value Range Interpretation Code Description Data Izabela rce(s) Supporting Document(s) Prothrombin Time-Therapy 24.3 [facility] ([facility] INR in Platelet poor plasma by Coagulation assay 2.0 [facility] ([facility] Dosage Laboratory test result [facility] ([facility] Recheck Laboratory test result [facility] ([facility] ID Date Data Source [id number] 08/18/2020 03:39:00 PM EDT [facility] ([facility] Name Value Range Interpretation Code Description Data Izabela rce(s) Supporting Document(s) ABG pH (Arterial) 7.407 units 7.350-7.450 Normal (applie s to non-numeric results) [facility] ([facility] ) ABG Partial Pressure O2 127.7 mmHg 75.0-100.0 Above high normal [facility] ([facility] ABG Partial Pressure Co2 60.1 mmHg 35.0-45.0 Above upper panic limi ts [facility] ([facility] ABG Hco3 37.0 meq/L 22.0-26.0 Above high normal [facility] ([facility] ABG Total Co2 38.8 meq/L 23.0-31.0 Above high normal MEDE NT ([facility] ABG O2 Saturation 98.8 % 95.0-99.0 Normal (applies to non-numeri c results) [facility] ([facility] ABG Standard Hco3 34.2 meq/L 22.0-26.0 Above high normal [facility] ([facility] ABG Base Excess 10.4 Above high normal [facility] ([facility] Procedure Social History Code Duration Value Status Description Data Source(s ) Smoking 09/29/2021 12:00:00 AM EST - 11/20/2009 12:00:00 AM EST Patient is a former smoker completed Patient is a former smoker [facility] ([facility] ) Alcohol intake 05/18/2021 12:00:00 AM EDT Ex-drinker (finding) comp leted Ex- drinker (finding) [facility] Alcohol intake 10/08/2020 12:00:00 AM EST Not Currently completed [facility] Cigarette pack-years 10/08/2020 12:00:00 AM EST UNK completed [facility] Cigarettes smoked current (pack per day) - Reported 10/08/20 12:00:00 AM EST UNK completed [facility] Smoking 10/08/2020 12:00:00 AM EST Former smoker completed Former smoker [facility] Alcohol intake 09/23/2020 12:00:00 AM EST Not Currently completed [facility] Cigarette pack-years 09/23/2020 12:00:00 AM EST UNK completed [facility] Cigarettes smoked current (pack per day) - Reported 09/23/20 12:00:00 AM EST UNK completed [facility] Smoking 09/23/2020 12:00:00 AM EST Former smoker completed Former smoker [facility] Tobacco use and exposure 09/22/2020 12:00:00 AM EST Never used co mpleted Never used [facility] Cigarette pack-years 09/22/2020 12:00:00 AM EST UNK completed [facility] Cigarettes smoked current (pack per day) - Reported 09/22/20 20 12:00:00 AM EST UNK completed [facility] Smoking 09/22/2020 12:00:00 AM EST Former smoker completed Former smoker [facility] Vital Signs ID Date Data Source UNK Name Value Range Interpretation Code Description Data Source(s) Systolic blood pressure 138 mm[Hg] 138 mm[Hg] M [facility] ([facility], ) Diastolic blood pressure 62 mm[Hg] 62 mm[Hg] [facility]) Heart rate 95 /min 95 /min [facility] ([facility]) Oxygen saturation in Arterial blood by Pulse oximetry 981.5 % 981.5 % [facility] ([facility]) Body height 61 [in_i] 61 [in_i] [facility] ([facility]) 5'1" Body weight 147.00 [lb_av] 147.00 [lb_av] [facility] ([facility]) Body mass index (BMI) [Ratio] 27.8 kg/m2 27.8 k g/m2 [facility] ([facility]) [place] body weight 105 [lb_av] 105 [lb_av] [facility] ([facility]) Body weight 66.679 kg 66.679 kg [facility] ([facility]) Body surface area Derived from formula 1.66 m2 1.66 m2 [facility] ([facility]) Respiratory rate 16 /min 16 /min [facility] ( [facility] Body height 62 [in_i] 62 [in_i] [facility] ([facility] 5'2" [place] body weight 110 [lb_av] 110 [lb_av] [facility] ([facility] Systolic blood pressure 122 mm[Hg] 122 mm[Hg] M [facility] ([facility] Diastolic blood pressure 54 mm[Hg] 54 mm[Hg] [facility] ([facility] Body temperature 98.1 [degF] 98.1 [degF] [facility] ([facility] Heart rate 80 /min 80 /min [facility] ([facility] Oxygen saturation in Arterial blood by Pulse oximetry 98 % 98 % [facility] ([facility] (On O2 @ 1.5 LPM [place]) Systolic blood pressure 122 mm[Hg] 122 mm[Hg] M ED[facility] ([facility] Diastolic blood pressure 62 mm[Hg] 62 mm[Hg] [facility] ([facility] Body temperature 98.5 [degF] 98.5 [degF] [facility] ([facility] Heart rate 67 /min 67 /min [facility] ([facility] Respiratory rate 18 /min 18 /min [facility] ( [facility] Body weight 134.00 [lb_av] 134.00 [lb_av] [facility] ([facility] Oxygen saturation in Arterial blood by Pulse oximetry 97 % 97 % [facility] Systolic blood pressure 120 mm[Hg] 120 mm[Hg] M [facility] ([facility], ) Diastolic blood pressure 80 mm[Hg] 80 mm[Hg] [facility] ([facility], ) Heart rate 110 /min 110 /min [facility] ([facility], ) Oxygen saturation in Arterial blood by Pulse oximetry 973 % 973 % [facility] ([facility], ) Body height 61 [in_i] 61 [in_i] [facility] ([facility], ) 5'1" [place] body weight 105 [lb_av] 105 [lb_av] [facility] ([facility], ) Systolic blood pressure 124 mm[Hg] 124 mm[Hg] M [facility] ([facility] Diastolic blood pressure 64 mm[Hg] 64 mm[Hg] [facility] ([facility] Heart rate 90 /min 90 /min [facility] ([facility] Respiratory rate 18 /min 18 /min [facility] ( [facility] Body temperature 97.0 [degF] 97.0 [degF] [facility] ([facility] Oxygen saturation in Arterial blood by Pulse oximetry 98 % 98 % [facility] ([facility] Systolic blood pressure 138 mm[Hg] 138 mm[Hg] M [facility] ([facility] Diastolic blood pressure 76 mm[Hg] 76 mm[Hg] [facility] ([facility] Heart rate 90 /min 90 /min [facility] ([facility] Respiratory rate 16 /min 16 /min [facility] ( [facility] Body weight 142.00 [lb_av] 142.00 [lb_av] [facility] ([facility] Systolic blood pressure 112 mm[Hg] 112 mm[Hg] [facility] Diastolic blood pressure 58 mm[Hg] 58 mm[Hg] [facility] Heart rate 82 /min 82 /min [facility] Body height 160 cm 160 cm [facility] Body weight 63.957 kg 63.957 kg [facility] Body mass index (BMI) [Ratio] 24.98 kg/m2 24.98 kg/m2 [facility] Oxygen saturation in Arterial blood by Pulse oximetry 98 % 98 % [facility] Body height 61 [in_i] 61 [in_i] [facility] ([facility], ) 5'1" Body weight 144.00 [lb_av] 144.00 [lb_av] [facility] ([facility]) Body mass index (BMI) [Ratio] 27.2 kg/m2 27.2 k g/m2 [facility] ([facility]) [place] body weight 105 [lb_av] 105 [lb_av] [facility] ([facility]) Body weight 65.318 kg 65.318 kg [facility] ([facility], ) Body surface area Derived from formula 1.64 m2 1.64 m2 [facility] ([facility]) Body height 61 [in_i] 61 [in_i] [facility] ([facility]) 5'1" Body weight 144.00 [lb_av] 144.00 [lb_av] [facility] ([facility]) Body mass index (BMI) [Ratio] 27.2 kg/m2 27.2 k g/m2 [facility] ([facility]) [place] body weight 105 [lb_av] 105 [lb_av] [facility] ([facility]) Body weight 65.318 kg 65.318 [facility] Body surface area Derived from formula 1.64 m2 1.64 m2 [facility] ([facility]) Diastolic blood pressure 78 mm[Hg] 78 mm[Hg] [facility] ([facility] Heart rate 82 /min 82 /min [facility] ([facility] Respiratory rate 16 /min 16 /min [facility] ( [facility] Body height 62 [in_i] 62 [in_i] [facility] ([facility] 5'2" Body weight 144.00 [lb_av] 144.00 [lb_av] [facility] ([facility] [place] body weight 110 [lb_av] 110 [lb_av] [facility] ([facility] Body mass index (BMI) [Ratio] 26.3 kg/m2 26.3 k g/m2 [facility] ([facility] Oxygen saturation in Arterial blood by Pulse oximetry 98 % 98 % ANTHONY ([facility] (On O2 @ 1.5 LPM [place]) Body temperature 97.7 [degF] 97.7 [degF] [facility] ([facility] Systolic blood pressure 146 mm[Hg] 146 mm[Hg] M EDENT ([facility] Systolic blood pressure 138 mm[Hg] 138 mm[Hg] [facility] Diastolic blood pressure 68 mm[Hg] 68 mm[Hg] [facility] Heart rate 94 /min 94 /min [facility] Body height 160 cm 160 cm [facility] Body weight 66.679 kg 66.679 kg [facility] Body mass index (BMI) [Ratio] 26.04 kg/m2 26.04 kg/m2 [facility] Oxygen saturation in Arterial blood by Pulse oximetry 97 % 97 % [facility] Body weight 140.00 [lb_av] 140.00 [lb_av] [facility] ([facility] [place] body weight 110 [lb_av] 110 [lb_av] [facility] ([facility] Systolic blood pressure 134 mm[Hg] 134 mm[Hg] M ED[facility] ([facility] Diastolic blood pressure 76 mm[Hg] 76 mm[Hg] [facility] ([facility] Body temperature 97.4 [degF] 97.4 [degF] [facility] ([facility] Heart rate 100 /min 100 /min [facility] ([facility] Respiratory rate 20 /min 20 /min [facility] ( [facility] Body height 62 [in_i] 62 [in_i] [facility] ([facility] 5'2" Body mass index (BMI) [Ratio] 25.6 kg/m2 25.6 k g/m2 [facility] ([facility] Oxygen saturation in Arterial blood by Pulse oximetry 98 % 98 % [facility] ([facility] Systolic blood pressure 118 mm[Hg] 118 mm[Hg] M ED[facility] ([facility], ) Diastolic blood pressure 82 mm[Hg] 82 mm[Hg] [facility] ([facility], ) Heart rate 103 /min 103 /min [facility] ([facility] ) Oxygen saturation in Arterial blood by Pulse oximetry 98 % 98 % [facility] ([facility], ) Body height 61 [in_i] 61 [in_i] [facility] ([facility], ) 5'1" [place] body weight 105 [lb_av] 105 [lb_av] [facility] ([facility], ) Systolic blood pressure 122 mm[Hg] 122 mm[Hg] M [facility] ([facility] Diastolic blood pressure 66 mm[Hg] 66 mm[Hg] [facility] ([facility] Body temperature 99.6 [degF] 99.6 [degF] [facility] ([facility] Heart rate 58 /min 58 /min [facility] ([facility] Respiratory rate 16 /min 16 /min [facility] ( [facility] Body height 62 [in_i] 62 [in_i] [facility] 5'2" [place] body weight 110 [lb_av] 110 [lb_av] [facility] ([facility] Oxygen saturation in Arterial blood by Pulse oximetry 97 % 97 % [facility] ([facility] (On O2 @ 1 LPM [place]) Systolic blood pressure 118 mm[Hg] 118 mm[Hg] M [facility] ([facility] Diastolic blood pressure 62 mm[Hg] 62 mm[Hg] [facility] ([facility] Body temperature 99.6 [degF] 99.6 [degF] [facility] ([facility] Heart rate 98 /min 98 /min [facility] ([facility] Respiratory rate 18 /min 18 /min [facility] ( [facility] Body height 62 [in_i] 62 [in_i] [facility] ([facility] [facility] 5'2" [place] body weight 110 [lb_av] 110 [lb_av] [facility] ([facility] Oxygen saturation in Arterial blood by Pulse oximetry 96 % 96 % [facility] ([facility] (On O2 @ 1 LPM [place]) Systolic blood pressure 140 mm[Hg] 140 mm[Hg] [facility] Diastolic blood pressure 66 mm[Hg] 66 mm[Hg] [facility] Heart rate 97 /min 97 /min [facility] Body height 160 cm 160 cm [facility] Body weight 66.679 kg 66.679 kg [facility] Body mass index (BMI) [Ratio] 26.04 kg/m2 26.04 kg/m2 [facility] Oxygen saturation in Arterial blood by Pulse oximetry 96 % 96 % [facility] Systolic blood pressure 142 mm[Hg] 142 mm[Hg] [facility] Diastolic blood pressure 84 mm[Hg] 84 mm[Hg] [facility] Body height 160 cm 160 cm [facility] Body weight 68.04 kg 68.04 kg [facility] Body mass index (BMI) [Ratio] 26.57 kg/m2 26.57 kg/m2 [facility] Oxygen saturation in Arterial blood by Pulse oximetry 97 % 97 % [facility] Body mass index (BMI) [Ratio] 28.2 kg/m2 28.2 k g/m2 [facility] ([facility], ) [place] body weight 105 [lb_av] 105 [lb_av] [facility] ([facility], ) Body weight 67.586 kg 67.586 kg [facility] ([facility], ) Systolic blood pressure 118 mm[Hg] 118 mm[Hg] [facility] ([facility], ) Diastolic blood pressure 68 mm[Hg] 68 mm[Hg] [facility] ([facility], ) Heart rate 111 /min 111 /min [facility] ([facility], ) Oxygen saturation in Arterial blood by Pulse oximetry 961 % 961 % [facility] ([facility], ) Body height 61 [in_i] 61 [in_i] [facility] ([facility], ) 5'1" Body weight 149.00 [lb_av] 149.00 [lb_av] [facility] ([facility], ) Body surface area Derived from formula 1.67 m2 1.67 m2 [facility] ([facility], ) Oxygen saturation in Arterial blood by Pulse oximetry 98 % 98 % [facility] ([facility] (On O2 @ 1 LPM [place]) Systolic blood pressure 124 mm[Hg] 124 mm[Hg] [facility] ([facility] Diastolic blood pressure 68 mm[Hg] 68 mm[Hg] [facility] ([facility] Body temperature 98.6 [degF] 98.6 [degF] [facility] ([facility] Heart rate 100 /min 100 /min [facility] ([facility] Respiratory rate 20 /min 20 /min [facility] ( [facility] Body height 62 [in_i] 62 [in_i] [facility] ([facility] 5'2" [place] body weight 110 [lb_av] 110 [lb_av] [facility] ([facility] Body mass index (BMI) [Ratio] 27.1 kg/m2 27.1 k g/m2 [facility] ([facility] Oxygen saturation in Arterial blood by Pulse oximetry 87 % 87 % [facility] ([facility] with O2 @3L via nasal cannula Diastolic blood pressure 66 mm[Hg] 66 mm[Hg] [facility] ([facility] Body temperature 98.1 [degF] 98.1 [degF] [facility] ([facility] Heart rate 98 /min 98 /min [facility] ([facility] Respiratory rate 18 /min 18 /min [facility] ( [facility] Body weight 148.00 [lb_av] 148.00 [lb_av] [facility] ([facility] per pt [place] body weight 110 [lb_av] 110 [lb_av] [facility] ([facility] Body height 62 [in_i] 62 [in_i] [facility] ([facility] 5'2" Systolic blood pressure 114 mm[Hg] 114 mm[Hg] [facility] ([facility] Patient Treatment Plan of Care Planned Activity Planned Date Details Description Data Source (s) albuterol (PROVENTIL HFA;VENTOLIN HFA) 108 (90 Base) M CG/ACT inhaler 05/18/2021 12:00:00 AM EDT [facility] apixaban 5 MG Oral Tablet [Eliquis] 04/13/2021 12:00:00 AM EDT [facility] apixaban 5 MG Oral Tablet 01/14/2021 12:00:00 AM EST [facility] tramadol hydrochloride 50 MG Oral Tablet 12/31/2020 12:00:00 AM EST [facility] apixaban 5 MG Oral Tablet [Eliquis] 12/04/2020 12:00:00 AM EST [facility] apixaban 5 MG Oral Tablet 10/08/2020 12:00:00 AM EST [facility] Budesonide 0.25 MG/ML Inhalant Solution 09/08/2020 12:00:00 AM EDT [facility] montelukast 10 MG Oral Tablet 09/03/2020 12:00:00 AM EDT [facility] 60 ACTUAT Budesonide 0.16 MG/ACTUAT / fo rmoterol fumarate 0.0045 MG/ACTUAT Metered Dose Inhaler 09/01/2020 12:00:00 AM EDT [facility] Albuterol 0.83 MG/ML Inhalant Solution 08/25/2020 12:00:00 AM EDT [facility] Prednisone 10 MG Oral Tablet 08/25/2020 12:00:00 AM EDT [facility] Warfarin Sodium 2 MG Oral Tablet 08/12/2020 12:00:00 AM EDT [facility] albuterol (PROVENTIL HFA;VENTOLIN HFA) 108 (90 Base) M CG/ACT inhaler 08/08/2020 12:00:00 AM EDT [facility] Metformin hydrochloride 500 MG Oral Tablet 08/04/2020 12:00:00 AM E DT [facility] Warfarin Sodium 3 MG Oral Tablet 08/01/2020 12:00:00 AM EDT [facility] SPIRIVA RESPIMAT 1.25 MCG/ACT AERS 07/06/2020 12:00:00 AM EDT [facility] atorvastatin 40 MG Oral Tablet [facility] sennosides, [facility] 8.6 MG Oral Tablet [facility] POLYETHYLENE GLYCOL 3350 142 MG/ML Oral Solution [facility]
[2021-10-18] MEDS ORDERED: aggrenox PO (11:31)
[2021-10-18] MEDS ORDERED: METO1TAB87 PO ×2 (11:31→22:58)
[2021-10-18] MEDS ORDERED: ERGO500029 PO ×2 (11:31→22:58)
[2021-10-18] MEDS ORDERED: SYMB16INH INH ×2 (11:31→22:58)
[2021-10-18] MEDS ORDERED: ATOR40TA75 PO ×2 (11:31→22:58)
[2021-10-18 12:29] LABS: BASO # 0.1 10^3/uL (0.0-0.2); BASO % 0.4 % (0.0-1.0); EOS # 0.2 10^3/uL (0.0-0.5); EOS % 1.3 % (0.0-3.0); HEMATOCRIT 36.5 % (36.0-47.0); HEMOGLOBIN 10.2 g/dl (12.0-15.5); LYMPH # 1.2 10^3/uL (1.5-5.0); LYMPH % 10.7 % (24.0-44.0); MEAN CORPUSCULAR HEMOGLOBIN 25.6 pg (27.0-33.0); MEAN CORPUSCULAR HGB CONC 27.9 g/dl (32.0-36.5); MEAN CORPUSCULAR VOLUME 91.5 fl (80.0-96.0); MONO # 1.3 10^3/uL (0.0-0.8); MONO % 10.9 % (2.0-8.0); NEUTROPHILS # 8.8 10^3/uL (1.5-8.5); NEUTROPHILS % 76.4 % (36.0-66.0); PLATELET COUNT, AUTOMATED 259 10^3/uL (150-450); RED BLOOD COUNT 3.99 10^6/uL (4.00-5.40); WHITE BLOOD COUNT 11.5 10^3/uL (4.0-10.0)
--- NOTE | 2021-10-18 12:29 | REP ---
INDICATION: Head Injury. COMPARISON: 09/26/2020. TECHNIQUE: CT brain performed in the axial plane. Coronal reconstruction images are performed. FINDINGS: There is stable chronic atrophic change. There is no midline shift or mass effect. There are stable chronic periventricular small vessel ischemic changes. 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 There is a chronic appearing small lacunar infarct more superiorly in the left frontoparietal white matter. There is no acute intracranial hemorrhage or extra-axial fluid collection. No skull fracture is seen. The visualized paranasal sinuses and mastoid air cells are clear. IMPRESSION: Chronic changes. No acute intracranial hemorrhage, midline shift or mass effect. No fracture visualized. <Electronically signed by Vernon Mccabe > 10/18/21 [id number]
--- NOTE | 2021-10-18 12:34 | REP ---
INDICATION: Head Injury. COMPARISON: None. TECHNIQUE: 2 x 2 mm increments using helical technique and reconstructed in both sagittal and coronal planes FINDINGS: There is significant artifact decreasing the detail to such a degree a subtle fracture could be obscured. There is significant disc space narrowing C3-4 through C6-7 with heavy anterior and posterior osteophytic ridging at those levels. Degenerative facet and uncovertebral joint changes are present at every level bilaterally. There is an approximately 4 mm anterolisthesis of C3 on C4, 3 mm anterolisthesis of C4 on C5, and 2 mm anterolisthesis of C7 on T1. IMPRESSION: Exam limitations, chronic changes, and multiple anterolisthesis as described above. Due to the exam limitations I cannot rule out a fracture. MRI is recommended to search for marrow edema. <Electronically signed by Ab Villanueva > 10/18/21 [id number]
[2021-10-18 12:39] LABS: INR 1.18; PROTHROMBIN TIME 15.4 SECONDS (12.7-14.5)
--- NOTE | 2021-10-18 12:40 | REPVR ---
PROCEDURE INFORMATION: Exam: CT Maxillofacial Without Contrast Exam date and time: 10/18/2021 12:12 PM Age: 81 years old Clinical indication: Injury or trauma; Fall; Blunt trauma (contusions or hematomas); [place] TECHNIQUE: Imaging protocol: Computed tomography images of the face without contrast. Radiation optimization: All CT scans at this facility use at least one of these dose optimization techniques: automated exposure control; mA and/or kV adjustment per patient size (includes targeted exams where dose is matched to clinical indication); or iterative reconstruction. COMPARISON: CT Head without contrast 09/26/2020 8:25 PM FINDINGS: Limitations: Evaluation is mildly limited by spray artifact from dental amalgam. Orbital cavity: Orbits are normal. Globes are unremarkable. Bones/joints: No definite fracture is identified. Incidental note is made of severe degenerative changes of the cervical spine. Paranasal sinuses: Normal. No air-fluid levels. Soft tissues: Soft tissue swelling is seen anterior to the maxilla. Right periorbital soft tissue swelling is also noted. IMPRESSION: No definite acute facial fracture. Electronically signed by: Xavi Oseguera On 10/18/2021 12:40:22 PM
[2021-10-18 12:48] LABS: BLOOD UREA NITROGEN 30 MG/DL (7-18); CALCIUM LEVEL 8.9 MG/DL (8.8-10.2); CARBON DIOXIDE LEVEL 37 MEQ/L (21-32); CHLORIDE LEVEL 100 MEQ/L (98-107); CREATININE FOR GFR 0.72 MG/DL (0.55-1.30); GLOMERULAR FILTRATION RATE > 60.0 (>39); GLUCOSE, FASTING 133 MG/DL (70-100); POTASSIUM SERUM 4.3 MEQ/L (3.5-5.1); SODIUM LEVEL 140 MEQ/L (136-145)
[2021-10-18] MEDS ORDERED: LORazepam 2 MG/ML VIAL IV STA (12:53)
[2021-10-18 13:36] LABS: RSV AMPLIFICATION NEGATIVE (NEGATIVE)
[2021-10-18 14:47] LABS: CK-MB VALUE MASS 2.5 NG/ML (<3.6); MB/CK RELATIVE INDEX 3.38 (< OR =4)
--- NOTE | 2021-10-18 15:35 | ECGEPIP ---
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
--- OUTSIDE RECORDS SUMMARY | 2021-10-18 16:11 | CCD ---
Author Author [facility] Organization [facility] Address Unknown Phone Unavailable Care Team Providers Care Gun Stock Maker Name Role Phone SANGITA PHILLIPS Unavailable Unavailable [...] Unavailable Unavailable Kurtis Nuñez MD Unavailable Unavailable HollywoodKurtis MD Unavailable Unavailable OUEIDA, ZAHER Unavailable Unavailable [...] Unavailable Unavailable Rigoberto SALAS MD Unavailable Unavailable Lititz, V ANKUSH PA-C Unavailable Unavailable Sukumar, V ANKUSH PA-C Unavailable Unavailable Lititz, V ANKUSH PA-C Unavailable Unavailable Sukumar, V ANKUSH PA-C Unavailable Unavailable Lititz, V ANKUSH PA-C Unavailable Unavailable Lititz, V ANKUSH PA-C Unavailable Unavailable Lititz, V ANKUSH PA-C Unavailable Unavailable Lititz, V ANKUSH PA-C Unavailable Unavailable Lititz, V ANKUSH PA-C Unavailable Unavailable Lititz, V ANKUSH PA-C Unavailable Unavailable Lititz, V ANKUSH PA-C Unavailable Unavailable Lititz, V ANKUSH PA-C Unavailable Unavailable Lititz, V ANKUSH PA-C Unavailable Unavailable Lititz, V ANKUSH PA-C Unavailable Unavailable ROSETTA MCINTOSH [...] Hawkins MD Unavailable Unavailable Loveless, A Sally PROPAGATION WORKER Unavailable Unavailable Loveless, A Sally PROPAGATION WORKER Unavailable Unavailable Loveless, A Sally PROPAGATION WORKER Unavailable Unavailable Loveless, A Sally PROPAGATION WORKER Unavailable Unavailable Loveless, A Sally PROPAGATION WORKER Unavailable Unavailable Loveless, A Sally PROPAGATION WORKER Unavailable Unavailable Loveless, A Sally PROPAGATION WORKER Unavailable Unavailable Loveless, A Sally PROPAGATION WORKER Unavailable Unavailable Loveless, A Sally PROPAGATION WORKER Unavailable Unavailable Loveless, A Sally PROPAGATION WORKER Unavailable Unavailable Loveless, A Sally PROPAGATION WORKER Unavailable Unavailable Loveless, A Sally PROPAGATION WORKER Unavailable Unavailable Loveless, A Sally PROPAGATION WORKER Unavailable Unavailable Loveless, A Sally PROPAGATION WORKER Unavailable Unavailable Loveless, A Sally PROPAGATION WORKER Unavailable Unavailable Loveless, A Sally PROPAGATION WORKER Unavailable Unavailable Loveless, A Sally PROPAGATION WORKER Unavailable Unavailable Loveless, A Sally PROPAGATION WORKER Unavailable Unavailable Loveless, A Sally PROPAGATION WORKER Unavailable Unavailable Loveless, A Sally PROPAGATION WORKER Unavailable Unavailable Loveless, A Sally PROPAGATION WORKER Unavailable Unavailable Loveless, A Sally PROPAGATION WORKER Unavailable Unavailable Loveless, A Sally PROPAGATION WORKER Unavailable Unavailable Loveless, A Sally PROPAGATION WORKER Unavailable Unavailable Loveless, A Sally PROPAGATION WORKER Unavailable Unavailable Loveless, A Sally PROPAGATION WORKER Unavailable Unavailable Loveless, A Sally PROPAGATION WORKER Unavailable Unavailable Loveless, A Sally PROPAGATION WORKER Unavailable Unavailable Loveless, A Sally PROPAGATION WORKER Unavailable Unavailable Loveless, A Sally PROPAGATION WORKER Unavailable Unavailable Loveless, A Sally PROPAGATION WORKER Unavailable Unavailable Gurwinder COOPER . Unavailable Unavailable [...] Unavailable Unavailable Leigh Ramos MD Unavailable Unavailable Legih Ramos MD Unavailable Unavailable Leigh Ramos MD Unavailable Unavailable Leigh Ramos MD Unavailable Unavailable Leigh Rmaos MD Unavailable Unavailable Leigh Ramos MD Unavailable [...] is protected by Article 27-F of the [facility] Public Health law. If you continue you may have access to information: Regarding HIV / AIDS; Provided by facilities licensed or operated by the [facility] Office of Mental Health; or Provided by the [facility] Office for People With Developmental Disabilities. If such information is present, then the following [facility] mandated warning applies: This information has been [...] law may result in a fine or halfway sentence or both. A general authorization for the release of medical or other information is NOT sufficient authorization for further disc losure. Allergies and Adverse Reactions Type Description Substance Reaction Status Data Source(s ) Propensity to adverse reactions NO KNOWN ALLERGIES NO KNOWN ALLERGIES [facility] Drug allergy AMOXICILLIN-POT CLAVULANATE AMOXICILLIN-POT CLAVULANATE [facility] Propensity to adverse reactions CLARITHROMYCIN Clarithromycin [facility] Drug allergy PSEUDOEPHEDRINE HCL PSEUDOEPHEDRINE HCL [facility] Propensity to adverse reactions PSEUDOEPHEDRINE Pseudoephedrine Active [facility] Propensity to adverse reactions PSEUDOEPHEDRINE HCL Pseudoephedrine Hcl Active [facility] Propensity to adverse reactions OTHER Other Acti ve [facility] Propensity to adverse reactions CLARITHROMYCIN Clarithromycin Active [facility] Propensity to adverse reactions AMOXICILLIN-POT CLAVULANATE Amoxicillin-Pot Clavulanate Active [facility] Family History Family Member Name Family Member Gender Family Member Status Date o f Status Description Data Source(s) Unknown Unknown Problem [facility] ([facility], ) Unknown Male Problem [facility] ([facility] () Encounters Encounter Providers Location Date Indications Data Source(s ) Outpatient Attender: Sally Scott NP 12/01/2021 12:0 0:00 AM [facility] Outpatient Attender: Ross Martinez/Joaquin/Monty/Shabbir monzon 09/29/2021 12:45:00 PM EST [facility] ([facility], ) Outpatient Attender: CANDIDO Carballo Office 06/2021 12:45:00 PM EST [facility] ([facility] Outpatient Attender: CANDIDO Carballo Office 04/2021 01:45:00 PM EDT [facility] ([facility] Inpatient Attender: TEDDY Hyman er: IVANA CHONG .Attender: STACEY PARKSAttender: ROSETTA MCINTOSH MDAdmitter: ROSETTA MCINTOSH MDReferrer: TEDDY PHILLIPSConsultant: STACEY PARKS [id number] 08/09/2021 12:00:00 AM E DT - 08/17/2021 02:22:00 PM [facility] Patient discharged. Outpatient Attender: Ross Martinez/Joaquin/Monty/Shabbir monzon 06/14/2021 02:45:00 PM EDT [facility] ([facility], ) Outpatient Attender: CANDIDO Carballo Office 11:45:00 AM EDT [facility] ([facility] Outpatient Attender: CANDIDO Carballo Office 01:30:00 PM EDT [facility] ([facility] Outpatient Attender: ANKUSH ROCKSJCeciliaKELLI 12:00:00 AM EDT - 05/18/2021 02:28:16 PM EDT [facility] Outpatient Attender: Kurtis Martinez/Joaquin/Monty/Reind l 03/23/2021 02:10:00 PM EDT [facility] ([facility] Outpatient Attender: Ross Martinez/Joaquin/Monty/R eindl 03/01/2021 03:15:00 PM EDT [facility] ([facility] Outpatient Attender: Kurtis Martinez/Joaquin/Monty/Reind l 02/26/2021 11:10:00 AM EDT [facility] ([facility] Outpatient Attender: CANDIDO Carblalo Office 01:30:00 PM EDT [facility] ([facility] Outpatient Attender: ANKUSH CHAN-SJCeciliaKELLI 12:00:00 AM EST - 01/14/2021 02:16:21 PM EST [facility] Outpatient Attender: CANDIDO Carballo Office 08/2021 01:00:00 PM EST [facility] ([facility] Outpatient Attender: Ross Martinez/Joaquin/Monty/R eindl 12/01/2020 01:45:00 PM EST [facility] ([facility] Outpatient Attender: CANDIDO Carballo Office 12:45:00 PM EST [facility] ([facility] Outpatient Attender: CANDIDO Carballo Office 01:00:00 PM EST [facility] ([facility] Outpatient Attender: ANKUSH ROCKSJCeciliaKELLI 12:00:00 AM EST - 10/08/2020 03:18:16 PM EST [facility] Outpatient Attender: Leigh PARRISH.KELLI-SJP.KELLI 01/2020 12:00:00 AM EST - 09/22/2020 04:48:11 PM EST [facility] Outpatient Attender: Ross Martinez/Joaquin/Monty/Shabbir monzon 09/17/2020 02:00:00 PM EDT [facility] ([facility] Outpatient Attender: CANDIDO SALAS MD [place] Office 03:00:00 PM EDT [facility] Outpatient Attender: CANDIDO SALAS MD [place] Office 05/2020 11:00:00 AM EDT [facility] ([facility] Immunizations Vaccine Date Status Description Data Source(s) New in 2011. IIV4 08/20/2021 01:53:00 PM EDT completed [facility] ([facility] COVID-19 VACCINE Moderna 02/22/2021 12:00:00 AM EDT completed [facility] Vaccine Series Complete: YESThis Data wa s Submitted to [facility] Via [employer]. COVID-19 VACCINE, MRNA-1273, LNP-S (MODERNA)/PF 02/22/2021 1 2:00:00 AM EDT completed [facility] COVID-19 VACCINE Moderna 01/22/2021 12:00:00 AM EST completed [facility] Vaccine Series Complete: NOThis Data was Submitted to [facility] Via [employer]. COVID-19 VACCINE, MRNA-1273, LNP-S (MODERNA)/PF 01/22/2021 1 [...] 10/04/2021 12:00:00 AM EST RESPIRATORY active [facility] ([facility], ) 25 mg 09/09/2021 12:00:00 AM EDT [...] 05/20/2021 12:00:00 AM EDT ORAL active [facility] ([facility] 90 mcg/actuation 05/19/2021 12:00:00 AM EDT HFA aerosol inha ler 18 INHALE TWO PUFFS BY MOUTH EVERY 4 TO 6 HOURS NEEDED INHALE TWO PUFFS BY MOUTH EVERY 4 TO 6 HOURS NEEDED SOLD: 05/20/2021 [facility] albuterol (PROVENTIL HFA;VENTOLIN HFA) 108 (90 Base) M CG/ACT inhaler 9733-4256-85 05/18/2021 12:00:00 AM EDT activ e INHALE TWO PUFFS BY MOUTH EVERY 4 TO 6 HOURS NEEDED [facility] montelukast 10 MG Oral Tablet MONTELUKAST [...] ONE TABLET BY MOUTH TWICE A DAY [facility] montelukast 10 MG Oral Tablet Montelukast Sodium 04/13/2021 12:00:00 AM EDT active [facility] ([facility] Bacitracin 0.5 UNT/MG / Polymyxin B 10 UNT/MG Topical Ointment [Polysporin] Polysporin 02/26/2021 12:00:00 AM EDT active [facility] ([facility] ) Sinus Rinse Bottle Kit 02/26/2021 12:00:00 AM EDT active [facility] ([facility] ) 5 mg 02/16/2021 12:00:00 AM EDT [...] by mouth 2 (two) times a day [facility] 50 mg 12/31/2020 12:00:00 AM EST [...] 3TABS A DAY.DO NOT DRIVE WHILE ON [facility] 50 mg 12/31/2020 12:00:00 AM EST tablet 90 TAKE 1TAB.BY MOUTH 3X/DAY NEEDED FOR PAIN MAX=3TABS A DAY.DO NOT DRIVE WHILE ON TAKE 1TAB.BY MOUTH 3X/DAY NEEDED FOR PAIN MAX=3TABS A DAY.DO NOT DRIVE WHILE ON SOLD: 12/31/2020 [facility] tramadol hydrochloride 50 MG Oral Tablet Tramadol HCL 12/30/2020 12:00:00 AM EST ORAL active [facility] ([facility] 10 mg 12/26/2020 12:00:00 [...] ONE TABLET BY MOUTH TWICE A DAY [facility] 18 mcg 12/02/2020 12:00:00 AM EST [...] by mouth 2 (two) times a day [facility] 1.25 mcg/actuation 10/03/2020 12:00:00 AM EST [...] MOUTH TWO TIMES A DAY SOLD: 10/01/2020 [facility] Budesonide 0.25 MG/ML Inhalant Solution budesonide (PULMICORT) 0.5 MG/2ML nebulizer solution budesonide (PULMICORT) 0.5 MG/2ML nebulizer solution 09/08/2020 12:00:00 AM EDT active USE 1 VIAL VIA NEBULIZER TWO TIMES A DAY [facility] montelukast 10 MG Oral Tablet montelukast (SINGULAIR) 10 MG tablet montelukast (SINGULAIR) 10 MG tablet 09/03/2020 12:00:00 AM EDT active TAKE 1 TABLET BY MOUTH AT BEDTIME MAXIMUM DAILY DOSE 1 [facility] 60 ACTUAT Budesonide 0.16 MG/ACTUAT / fo rmoterol fumarate 0.0045 MG/ACTUAT Metered Dose Inhaler budesonide-formoterol (SYMBICORT) 160-4.5 MCG/ACT inhaler budesonide-formoterol (SYMBICORT) 160-4.5 MCG/ACT inhaler 09/01/2020 12:00:00 AM EDT active INHALE 2 PUFFS BY MOUTH TWO TIMES A DAY [facility] 10 mg 08/25/2020 12:00:00 AM EDT [...] 08/25/2020 12:00:00 AM EDT active as needed [facility] Prednisone 10 MG Oral Tablet predniSONE (DELTASONE) 10 MG tablet predniSONE (DELTASONE) 10 MG tablet 08/25/2020 12:00:00 AM EDT 10 mg active 10 mg daily [facility] Warfarin Sodium 2 MG Oral Tablet warfarin (COUMADIN) 2 MG tablet warfarin (COUMADIN) 2 MG tablet 08/12/2020 12:00:00 AM EDT 4 mg Oral aborted Take 4 mg by mouth daily [facility] Warfarin Sodium 2 MG Oral Tablet [Coumadin] Coumadin 07/22 12:00:00 AM EDT ORAL completed [facility] ([facility] albuterol (PROVENTIL HFA;VENTOLIN HFA) 108 (90 Base) M CG/ACT inhaler 7668-1087-13 08/08/2020 12:00:00 AM EDT abort ed INHALE TWO PUFFS BY MOUTH EVERY 4 TO 6 HOURS NEEDED [facility] Metformin hydrochloride 500 MG Oral Tablet metFORMIN ( GLUCOPHAGE) 500 MG tablet metFORMIN (GLUCOPHAGE) 500 MG tablet 08/04/2020 12:00:00 AM EDT aborted [facility] Warfarin Sodium 3 MG Oral Tablet warfarin (COUMADIN) 3 MG tablet warfarin (COUMADIN) 3 MG tablet 08/01/2020 12:00:00 AM EDT aborted [facility] 150 mg 07/28/2020 12:00:00 AM EDT capsule,extended releas e 24hr 90 TAKE ONE CAPSULE BY MOUTH DAILY MAXIMUM DAILY DOSE = ONE CAPSULE TAKE ONE CAPSULE BY MOUTH DAILY MAXIMUM DAILY DOSE = ONE CAPSULE SOLD: 07/22/2021 [facility] 150 mg 07/28/2020 12:00:00 AM EDT capsule,extended releas e 24hr 90 TAKE ONE CAPSULE BY MOUTH DAILY MAXIMUM DAILY DOSE = ONE CAPSULE TAKE ONE CAPSULE BY MOUTH DAILY MAXIMUM DAILY DOSE = ONE CAPSULE SOLD: 10/29/2020 [facility] 150 mg 07/28/2020 12:00:00 AM EDT capsule,extended releas e 24hr 90 TAKE ONE CAPSULE BY MOUTH DAILY MAXIMUM DAILY DOSE = ONE CAPSULE TAKE ONE CAPSULE BY MOUTH DAILY MAXIMUM DAILY DOSE = ONE CAPSULE SOLD: 01/26/2021 [facility] 150 mg 07/28/2020 12:00:00 AM EDT capsule,extended releas e 24hr 90 TAKE ONE CAPSULE BY MOUTH DAILY MAXIMUM DAILY DOSE = ONE CAPSULE TAKE ONE CAPSULE BY MOUTH DAILY MAXIMUM DAILY DOSE = ONE CAPSULE SOLD: 04/24/2021 [facility] SPIRIVA RESPIMAT 1.25 MCG/ACT AERS 7149-2541-04 07/06/2020 12:00:00 A M EDT aborted INHALE 2 PUFFS BY MO UTH ONCE A DAY [facility] 160-4.5 mcg/actuation 05/11/2020 12:00:00 AM EDT [...] T kya 40 mg by mouth daily [facility] POLYETHYLENE GLYCOL 3350 142 MG/ML Oral Solution polyethylene glycol (GLYCOLAX) 17 g packet polyethylene glycol (GLYCOLAX) 17 g packet 17 g O ral aborted Take 17 g by mouth as needed [facility] sennosides, FDC 8.6 MG Oral Tablet senna (SENOKOT) 8.6 MG TABS senna (SENOKOT) 8.6 MG TABS 8.6 mg Oral aborted Take 8.6 mg by mouth as needed [facility] Insurance Providers Payer name Policy type / Coverage type Policy ID Covered democrat ID Covered democrat's relationship to shah Policy Shah Plan Information [id number] [employer] [id number] SP [id number] [employer] [id number] SP [id number] MEDICARE [id number] SP [id number] [place] Medicare Primary [id number] Self [id number] Medicare - [facility] Medicare Primary [id number] Self [id number] Medicare - [facility] Medicare Primary [id number] Self [id number] [place] Primary [id number] Self [id number] MEDICARE [id number] SP [id number] MEDICARE A [id number] Self [id number] [place] Medicare Primary [id number] Self [id number] [place] Medicare Primary [id number] Self [id number] MEDICARE [id number] Zoe [id number] R02 MEDICARE [id number] xxxxxxxxxxx [id number] UMR U [id number] Self [id number] UMR [id number] Zoe [id number] UMR [id number] xxxxxxxxx [id number] R [facility] [id number] SP [id number] UMR O [id number] S [id number] MEDICARE C [id number] S [id number] [employer] [id number] Self [id number] [employer] Med[employer]ap Part B [id number] Self [id number] R [facility] [id number] SP [id number] R [facility] [id number] SP [id number] [employer] Med[employer] Part B [id number] Self [id number] [employer] PPO O [id number] S [id number] MEDICARE C [id number] S [id number] A [employer] PPO O [id number] S [id number] [employer] [id number] Self [id number] Problems, Conditions, and Diagnoses Code Display Name Description Problem Type Effective Dates Data Source(s) I48.91 Unspecified atrial fibrillation Unspecified atri al fibrillation Diagnosis 05/18/2021 01:32:59 PM EDT [facility] J43.9 Emphysema, unspecified Emphysema, unspecified Diagnosi s 10/08/2020 02:12:08 PM EST [facility] I34.0 Nonrheumatic mitral (valve) insufficienc y Nonrheumatic mitral (valve) insufficienc Diagnosis 10/08/2020 02:12:08 PM EST [facility] J43.9 Pulmonary emphysema Pulmonary emphysema [id number] 1 11/22/2019 12:00:00 AM EST [facility] I48.91 Atrial fibrillation Atrial fibrillation [id number] 1 11/22/2019 12:00:00 AM EST [facility] Z87.891 Ex-smoker Ex-smoker Problem 09/17/2020 12:00:00 AM ED T [facility] ([facility] ) Surgeries/Procedures Procedure Description Date Indications Data Source(s) OFFICE OUTPATIENT VISIT 25 MINUTES 09/29/2021 12:00:00 AM EST [facility] ([facility] ) OFFICE OUTPATIENT VISIT 25 MINUTES 09/27/2021 12:00:00 AM EST [facility] ([facility] OFFICE OUTPATIENT VISIT 25 MINUTES 08/25/2021 12:00:00 AM EDT [facility] ([facility] OFFICE OUTPATIENT VISIT 25 MINUTES 06/14/2021 12:00:00 AM EDT [facility] ([facility] ) OFFICE OUTPATIENT VISIT 25 MINUTES 06/04/2021 12:00:00 AM EDT [facility] ([facility] OFFICE OUTPATIENT VISIT 25 MINUTES 05/19/2021 12:00:00 AM EDT [facility] ([facility] ECG ROUTINE ECG W/LEAST 12 LDS W/I&R <td>POCT AMB EKG</td><td>Routine</td><td>05/18/2021 4:40 PM EDT</td><td> Atrial fibrillation, unspecified type</td><td> </td> 05/18/2021 04:40:00 PM EDT Atrial fibrillation, unspecified type [facility] Atrial fibrillation, unspecified type OFFICE OUTPATIENT VISIT 15 MINUTES 03/23/2021 12:00:00 AM EDT [facility] ([facility] ) OFFICE OUTPATIENT VISIT 25 MINUTES 03/01/2021 12:00:00 AM EDT [facility] ([facility] ) OFFICE OUTPATIENT NEW 30 MINUTES 02/26/2021 12:00:00 A M EDT [facility] ([facility] ) OFFICE OUTPATIENT VISIT 25 MINUTES 02/15/2021 12:00:00 AM EDT [facility] ([facility] BLOOD COUNT COMPLETE AUTO&AUTO DIFRNTL WBC COUNT <td>C BC AND DIFFERENTIAL</td><td>Routine</td><td>02/15/2021</td><td></td><td> </td> 02/15/2021 12:00:00 AM EDT [facility] HEPATIC FUNCTION PANEL <td>HEPATIC FUNCTION PANEL</td><td>Routine</td><td>02/15/2021</td><td></td><td> </td> 02/15/2021 12:00:00 AM EDT [facility] LIPID PANEL <td>LIPID PANEL</td><td>Rout ine</td><td>02/15/2021</td><td></td><td> </td> 02/15/2021 12:00:00 AM EDT [facility] LIPID PANEL <td>LIPID PANEL</td><td>Rout ine</td><td>02/15/2021</td><td></td><td> </td> 02/15/2021 12:00:00 AM EDT [facility] BASIC METABOLIC PANEL CALCIUM TOTAL <td>BASIC METABOLI C PANEL</td><td>Routine</td><td>02/15/2021</td><td></td><td> </td> 02/15/2021 12:00:00 AM EDT [facility] ECG ROUTINE ECG W/LEAST 12 LDS W/I&R <td>POCT AMB EKG</td><td>Routine</td><td>01/14/2021 5:14 PM EST</td><td> Atrial fibrillation, unspecified type</td><td> </td> 01/14/2021 10:14:00 PM EST Atrial fibrillation, unspecified type [facility] Atrial fibrillation, unspecified type OFFICE OUTPATIENT VISIT 25 MINUTES 12/30/2020 12:00:00 AM EST [facility] ([facility] POCT AMB EKG <td>POCT AMB EKG</td><td>Rou fortunato</td><td>10/12/2020 7:46 AM EST</td><td> Atrial fibrillation, unspecified type</td><td> </td> 10/12/2020 12:46:00 PM EST Atrial fibrillation, unspecified type [facility] Atrial fibrillation, unspecified type Capillary Blood Collection Finger, Heel, Ear Stick 10/07/2020 12:00:00 AM EST [facility] ([facility] ) POCT AMB EKG <td>POCT AMB EKG</td><td>Rou fortunato</td><td>09/22/2020 9:43 PM EST</td><td> Atrial fibrillation, unspecified type</td><td> </td> 09/23/2020 02:43:00 AM EST Atrial fibrillation, unspecified type [facility] Atrial fibrillation, unspecified type Capillary Blood Collection Finger, Heel, Ear Stick 09/11/2020 12:00:00 AM EDT [facility] ([facility] Capillary Blood Collection Finger, Heel, Ear Stick 08/26/2020 12:00:00 AM EDT [facility] ([facility] BLOOD COUNT COMPLETE AUTO&AUTO DIFRNTL WBC COUNT <td>C BC AND DIFFERENTIAL</td><td>Routine</td><td>08/24/2020</td><td></td><td> </td> 08/24/2020 12:00:00 AM EDT [facility] BASIC METABOLIC PANEL CALCIUM TOTAL <td>BASIC METABOLI C PANEL</td><td>Routine</td><td>08/24/2020</td><td></td><td> </td> 08/24/2020 12:00:00 AM EDT [facility] Results ID Date Data Source [id number] 10/18/2021 11:51:00 AM EST [facility] ([facility] Name Value Range Interpretation Code Description Data Izabela rce(s) Supporting Document(s) White Blood Count 11.5 10 4.0-10.0 Above high normal [facility] Red Blood Count 3.99 10 4.00-5.40 Below low normal MED ENT ([facility] Hemoglobin 10.2 g/dL 12.0-15.5 Below low normal [facility] ( [facility] Hematocrit 36.5 % 36.0-47.0 Normal (applies to non-numeric resul ts) [facility] ([facility] Mean Corpuscular Hemoglobin 25.6 pg 27.0-33.0 Below low normal [facility] ([facility] Mean Corpuscular Volume 91.5 fl 80.0-96.0 Normal ( applies to non-numeric results) [facility] ([facility] ) Mean Corpuscular HGB Conc 27.9 g/dL 32.0-36.5 Below low normal [facility] ([facility] Platelet Count, Automated 259 10 150-450 Normal (applies to non-numeric results) [facility] ([facility] ) Red Cell Distribution Width 15.3 % 11.5-14.5 Above high normal [facility] ([facility] Lymph % 10.7 % 24.0-44.0 Below low normal [facility] ( [facility] Neutrophils % 76.4 % 36.0-66.0 Above high normal MEDE NT ([facility] Eos % 1.3 % 0.0-3.0 Normal (applies to non-numeric resul ts) [facility] ([facility] [place] % 10.9 % 2.0-8.0 Above high normal [facility] ([facility] Baso % 0.4 % 0.0-1.0 Normal (applies to non-numeric resul ts) [facility] ([facility] Immature Granulocyte % 0.3 % 0-3.0 Normal (applies to non-n umeric results) [facility] ([facility] Nucleated Red Blood Cell % 0.0 % 0-0 Normal (applies to n on-numeric results) [facility] ([facility] Neutrophils # 8.8 10 1.5-8.5 Above high normal MEDE NT ([facility] Lymph # 1.2 10 1.5-5.0 Below low normal [facility] ( [facility] [place] # 1.3 10 0.0-0.8 Above high normal [facility] ([facility] Baso # 0.1 10 0.0-0.2 Normal (applies to non-numeric resul ts) [facility] ([facility] Eos # 0.2 10 0.0-0.5 Normal (applies to non-numeric resul ts) [facility] ([facility] ID Date Data Source [id number] 10/18/2021 11:51:00 AM EST [facility] ([facility] Name Value Range Interpretation Code Description Data Izabela rce(s) Supporting Document(s) Blood Urea Nitrogen 30 mg/dL 7-18 Above high normal [facility] ([facility] Glucose, Fasting 133 mg/dL 70-100 Above high normal M [facility]ENT ([facility] Glomerular Filtration Rate Laboratory test result Normal (applies to non- numeric results) [facility] ([facility] ) <content>Units are mL/min/1.73 m2</content>
<content></content>
<content>Chronic Kidney Disease Staging per NKF:</content>
<content></content>
<content>Stage I & II GFR >=60 Normal to Mildly Decreased</content>
<content>Stage III GFR 30- 59 Moderately Decreased</content>
<content>Stage IV GFR 15-29 Severely Decreased</content>
<content>Stage V GFR <15 Very Little GFR Left</content>
<content>ESRD GFR <15 on SIDE BOSS</content>
<content></content> Creatinine For GFR 0.72 mg/dL 0.55-1.30 Normal (applies to non -numeric results) [facility] ([facility] Potassium Serum 4.3 meq/L 3.5-5.1 Normal (applies to non-numeric results) [facility] ([facility] Sodium Level 140 meq/L 136-145 Normal (applies to non-numeric res ults) [facility] ([facility] Carbon Dioxide Level 37 meq/L 21-32 Above high normal [facility] ([facility] Chloride Level 100 meq/L 98-107 Normal (applies to non-numeric r esults) [facility] ([facility] Calcium Level 8.9 mg/dL 8.8-10.2 Normal (applies to non-numeric re sults) [facility] ([facility] Anion Gap 3 meq/L 8-16 Below low normal [facility] ID Date Data Source [id number] 10/18/2021 10:58:00 AM EST [facility] ([facility] Name Value Range Interpretation Code Description Data Izabela rce(s) Supporting Document(s) CPK Creatine Phosphokinase 74 U/L 26-192 Samantha l (applies to non-numeric results) [facility] ([facility] ) CK-MB Value Mass 2.5 ng/mL Normal (applies to non-numeric results) [facility] ([facility] MB/CK Relative Index 3.38 Normal (applies to non-num yassine results) [facility] ([facility] <content>DIAGNOSIS CRITERIA</content>
<content>MMB ng/ml Relative Index (RI)</content>
<content>NON-AMI < or = 5 N/A</content>
<content>ALANIS ZONE > 5 < or = 4</content>
<content>AMI > 5 > 4</content>
<content></content> Laboratory test finding (navigational concept) 24.0 ng/L 3 .0-53 Normal (applies to non-numeric results) [facility] ([facility] ID Date Data Source [id number] 10/18/2021 10:58:00 AM EST [facility] ([facility] Name Value Range Interpretation Code Description Data Izabela e(s) Supporting Document(s) Influenza A Amplification Laboratory test result Normal (applies to non- numeric results) [facility] ([facility] ) Negative results do not preclude influen za or RSV virus infection and should not be used as the sole basis for treatment or other patient management decisions. RSV Amplification Laboratory test result Normal (applies to non-numeric results) [facility] ([facility] ) Negative results do not preclude influen za or RSV virus infection and should not be used as the sole basis for treatment or other patient management decisions. Influenza B Amplification Laboratory test result Normal (applies to non- numeric results) [facility] ([facility] ) Negative results do not preclude influen za or RSV virus infection and should not be used as the sole basis for treatment or other patient management decisions. Laboratory test finding (navigational concept) Laboratory test r esult Normal (applies to non-numeric results) [facility] A false negative result may occur if a s pecimen is improperly collected, transported or handled. False negative results may also occur if inadequate numbers of organisms are present in the specimen. As with any molecular test, mutations within the target regions of Xpert Xpress SARS-CoV-2 could affect primer and/or probe binding resulting in failure to detect the presence of virus. This test cannot rule out diseases caused by other bacterial or viral pathogens. ASSAY INFORMATION: Real time RT-PCR test. DISCLAIMER: Testing was performed using the [employer] SARS-CoV-2 test. This test was developed and its performance characteristics determined by [employer]. This test has not been FDA cleared or approved. This test has been authorized by FDA under an Emergency Use Authorization (EUA). This test is only authorized for the duration of time the declaration that circumstances exist justifying the authorization of the emergency use of in vitro diagnostic tests for detection of SARS-CoV-2 virus and/or diagnosis of COVID-19 infection under section 564(b)(1) of the Act, 21 U.S.C. 360bbb-3(b)(1), unless the authorization is terminated or revoked sooner. ID Date Data Source [id number] 10/18/2021 10:58:00 AM EST [facility] ([facility] Name Value Range Interpretation Code Description Data Izabela rce(s) Supporting Document(s) Blood Type Laboratory test result Normal (applies to non-n umeric results) [facility] ([facility] AB Screen (Indirect Yanira)Vis Laboratory test result Normal (applies to non- numeric results) [facility] ([facility] ) ID Date Data Source [id number] 10/18/2021 10:58:00 AM EST [facility] ([facility] Name Value Range Interpretation Code Description Data Izabela rce(s) Supporting Document(s) Prothrombin Time 15.4 s 12.7-14.5 Above high normal M EDENT ([facility] Inr 1.18 Normal (applies to non-numeric resul ts) [facility] ([facility] THERAPUTIC HUMAN INR VALUES INDICATIONS NORMAL RANGES PROPHYLAXIS/TREATMENT OF: VENOUS THROMBOSIS 2.0-3.0 PULMONARY EMBOLISM 2.0-3.0 PREVENTION OF SYSTEMIC EMBOLISM FROM: TISSUE HEART VALVES 2.0-3.0 ACUTE MYOCARDIAL INFARCTION 2.0-3.0 VALVULAR HEART DISEASE 2.0-3.0 ATRIAL FIBRILLATION 2.0-3.0 MECHANICAL VALVES(HIGH RISK) 2.5-3.5 RECURRENT MYOCARDIAL INFARCTION 2.5-3.5 ID Date Data Source [id number] 09/27/2021 02:41:00 PM EST [facility] ([facility] Name Value Range Interpretation Code Description Data Izabela rce(s) Supporting Document(s) Hemoglobin A1c/Hemoglobin.total in Blood 7.3 % 4.50-6.20 Above high normal [facility] ([facility] ID Date Data Source [id number] 09/27/2021 02:41:00 PM EST [facility] ([facility] [employer] [facility] Name Value Range Interpretation Code Description Data Izabela rce(s) Supporting Document(s) WBC 10.0 10E3/uL 4.1-10.9 [facility] NORMAL RANGES Age WBC RBC [...] HCT IS 5% LESS SOURCE FOR DATA: [employer] 1800 OPERATION MANUAL( AUTOMATED BLOOD COUNTS AND [...] REPRESENTS INDIVIDUALA AGED 2-19 YEARS EXCLUSIVE. RBC 3.94 10E6/uL 4.20-6.30 Below low normal [facility] ([facility] [...] HCT IS 5% LESS SOURCE FOR DATA: [employer] 1800 OPERATION MANUAL( AUTOMATED BLOOD COUNTS AND [...] REPRESENTS INDIVIDUALA AGED 2-19 YEARS EXCLUSIVE. HGB 10.1 g/dL 12.0-18.0 Below low normal [facility] ( [facility] NORMAL RANGES Age [...] HCT IS 5% LESS SOURCE FOR DATA: [employer] 1800 OPERATION MANUAL( AUTOMATED BLOOD COUNTS AND [...] REPRESENTS INDIVIDUALA AGED 2-19 YEARS EXCLUSIVE. HCT 35.6 % 37.0-51.0 Below low normal [facility] ( [...] HCT IS 5% LESS SOURCE FOR DATA: [employer] 1800 OPERATION MANUAL( AUTOMATED BLOOD COUNTS AND [...] REPRESENTS INDIVIDUALA AGED 2-19 YEARS EXCLUSIVE. MCV 90.4 fL 80.0-97.0 [facility] ([facility] NORMAL [...] HCT IS 5% LESS SOURCE FOR DATA: [employer] 1800 OPERATION MANUAL( AUTOMATED BLOOD COUNTS AND [...] REPRESENTS INDIVIDUALA AGED 2-19 YEARS EXCLUSIVE. MCH 25.6 pg 26.0-32.0 Below low normal [facility] ( [facility] NORMAL RANGES [...] REPRESENTS INDIVIDUALA AGED 2-19 YEARS EXCLUSIVE. PLT 315 10E3/uL 140-440 [facility] ([facility] NORMAL RANGES Age WBC [...] HCT IS 5% LESS SOURCE FOR DATA: [employer] 1800 OPERATION MANUAL( AUTOMATED BLOOD COUNTS AND [...] REPRESENTS INDIVIDUALA AGED 2-19 YEARS EXCLUSIVE. MCHC 28.4 g/dL 31.0-36.0 Below low normal [facility] ( [...] HCT IS 5% LESS SOURCE FOR DATA: [employer] 1800 OPERATION MANUAL( AUTOMATED BLOOD COUNTS AND [...] REPRESENTS INDIVIDUALA AGED 2-19 YEARS EXCLUSIVE. RDW-CV 13.9 % 11.5-14.5 [facility] ([facility] NORMAL RANGES [...] HCT IS 5% LESS SOURCE FOR DATA: [employer] 1800 OPERATION MANUAL( AUTOMATED BLOOD COUNTS [...] REPRESENTS INDIVIDUALA AGED 2-19 YEARS EXCLUSIVE. Lym% 9.8 % 10.0-58.5 Below low normal [facility] ( [facility] NORMAL RANGES [...] HCT IS 5% LESS SOURCE FOR DATA: [employer] 1800 OPERATION MANUAL( AUTOMATED BLOOD COUNTS AND [...] REPRESENTS INDIVIDUALA AGED 2-19 YEARS EXCLUSIVE. MXD% 6.0 % 0.1-24.0 [facility] ([facility] NORMAL [...] HCT IS 5% LESS SOURCE FOR DATA: [employer] 1800 OPERATION MANUAL( AUTOMATED BLOOD COUNTS AND [...] 2-19 YEARS EXCLUSIVE. Lym# 1.0 10E3/uL 0.6-4.1 [facility] ([facility] NORMAL RANGES Age WBC [...] HCT IS 5% LESS SOURCE FOR DATA: [employer] 1800 OPERATION MANUAL( AUTOMATED BLOOD COUNTS AND [...] REPRESENTS INDIVIDUALA AGED 2-19 YEARS EXCLUSIVE. Neut% 84.2 % 37.0-92.0 [facility] ([facility] [...] HCT IS 5% LESS SOURCE FOR DATA: [employer] 1800 OPERATION MANUAL( AUTOMATED BLOOD COUNTS AND [...] REPRESENTS INDIVIDUALA AGED 2-19 YEARS EXCLUSIVE. MXD# 0.6 10E3/uL 0.0-1.8 ANTHONY ([facility] NORMAL RANGES Age WBC [...] HCT IS 5% LESS SOURCE FOR DATA: [employer] 1800 OPERATION MANUAL( AUTOMATED BLOOD COUNTS AND [...] Neut# 8.4 % 2.0-7.8 Above high normal [facility] ([facility] [...] HCT IS 5% LESS SOURCE FOR DATA: [employer] 1800 OPERATION MANUAL( AUTOMATED BLOOD COUNTS AND [...] REPRESENTS INDIVIDUALA AGED 2-19 YEARS EXCLUSIVE. MPV 11.8 fL 9.0-13.0 [facility] ([facility] [...] HCT IS 5% LESS SOURCE FOR DATA: [employer] 1800 OPERATION MANUAL( AUTOMATED BLOOD COUNTS AND [...] 2-19 YEARS EXCLUSIVE. ID Date Data Source [id number] 09/27/2021 02:41:00 PM EST [facility] ([facility] Name Value Range Interpretation Code Description Data Izabela rce(s) Supporting Document(s) Chol 157 mg/dL 0-200 [facility] ([facility] NORMAL RANGES [...] REPRESENTS INDIVIDUALA AGED 2-19 YEARS EXCLUSIVE. Trig 113 mg/dL 40-200 [facility] ([facility] NORMAL [...] HCT IS 5% LESS SOURCE FOR DATA: [employer] 1800 OPERATION MANUAL( AUTOMATED BLOOD COUNTS AND [...] in HDL [Mass/volume] in Serum or Plasma 73 mg/dL 45-65 Above high normal [facility] ([facility] [...] HCT IS 5% LESS SOURCE FOR DATA: [employer] 1800 OPERATION MANUAL( AUTOMATED BLOOD COUNTS AND [...] REPRESENTS INDIVIDUALA AGED 2-19 YEARS EXCLUSIVE. LDL_C 62 Calc 75-129 Below low normal [facility] ( [facility] [...] HCT IS 5% LESS SOURCE FOR DATA: [employer] 1800 OPERATION MANUAL( AUTOMATED BLOOD COUNTS [...] INDIVIDUALA AGED 2-19 YEARS EXCLUSIVE. Cho/HDL Ratio 2.2 CALC [facility] ([facility] NORMAL RANGES Age WBC RBC HGB [...] HCT IS 5% LESS SOURCE FOR DATA: [employer] 1800 OPERATION MANUAL( AUTOMATED BLOOD COUNTS AND [...] 2-19 YEARS EXCLUSIVE. ID Date Data Source [id number] 09/27/2021 02:41:00 PM [facility]UAN CRU[facility] ([facility] Name Value Range Interpretation Code Description Data Izabela rce(s) Supporting Document(s) Glu 177 mg/dL 70-110 Above high normal [facility] ([facility] NORMAL RANGES Age WBC RBC HGB HCT [...] HCT IS 5% LESS SOURCE FOR DATA: [employer] 1800 OPERATION MANUAL( AUTOMATED BLOOD COUNTS AND [...] 2-19 YEARS EXCLUSIVE. Creat 0.8 mg/dL 0.5-1.0 [facility] ([facility] NORMAL RANGES [...] HCT IS 5% LESS SOURCE FOR DATA: [employer] 1800 OPERATION MANUAL( AUTOMATED BLOOD COUNTS AND [...] INDIVIDUALA AGED 2-19 YEARS EXCLUSIVE. BUN/Creatinine Ratio 35.5 CALC [facility] ([facility] NORMAL RANGES Age [...] HCT IS 5% LESS SOURCE FOR DATA: [employer] 1800 OPERATION MANUAL( AUTOMATED BLOOD COUNTS AND [...] 27 mg/dL 8-23 Above high normal [facility] ([facility] NORMAL RANGES Age [...] HCT IS 5% LESS SOURCE FOR DATA: [employer] 1800 OPERATION MANUAL( AUTOMATED BLOOD COUNTS AND [...] REPRESENTS INDIVIDUALA AGED 2-19 YEARS EXCLUSIVE. K 5.0 mmol/L 3.5-5.1 [facility] ([facility] NORMAL RANGES [...] HCT IS 5% LESS SOURCE FOR DATA: [employer] 1800 OPERATION MANUAL( AUTOMATED BLOOD COUNTS AND [...] REPRESENTS INDIVIDUALA AGED 2-19 YEARS EXCLUSIVE. Na 141 mmol/L 136-145 [facility] ([facility] NORMAL [...] HCT IS 5% LESS SOURCE FOR DATA: [employer] 1800 OPERATION MANUAL( AUTOMATED BLOOD COUNTS AND [...] REPRESENTS INDIVIDUALA AGED 2-19 YEARS EXCLUSIVE. CL 98.7 mmol/L 98.0-107.0 [facility] ([facility] NORMAL RANGES Age WBC [...] HCT IS 5% LESS SOURCE FOR DATA: [employer] 1800 OPERATION MANUAL( AUTOMATED BLOOD COUNTS AND [...] REPRESENTS INDIVIDUALA AGED 2-19 YEARS EXCLUSIVE. Co2 31.0 mmol/L 22.0-29.0 Above high normal [facility] ([facility] [...] HCT IS 5% LESS SOURCE FOR DATA: [employer] 1800 OPERATION MANUAL( AUTOMATED BLOOD COUNTS AND [...] REPRESENTS INDIVIDUALA AGED 2-19 YEARS EXCLUSIVE. CA 9.9 mg/dL 8.6-10.2 [facility] ([facility] NORMAL [...] HCT IS 5% LESS SOURCE FOR DATA: [employer] 1800 OPERATION MANUAL( AUTOMATED BLOOD COUNTS AND [...] REPRESENTS INDIVIDUALA AGED 2-19 YEARS EXCLUSIVE. Alb 4.2 g/dL 3.4-4.8 [facility] ([facility] NORMAL RANGES [...] HCT IS 5% LESS SOURCE FOR DATA: [employer] 1800 OPERATION MANUAL( AUTOMATED BLOOD COUNTS AND [...] REPRESENTS INDIVIDUALA AGED 2-19 YEARS EXCLUSIVE. Globulin 1.4 CALC [facility] ([facility] [...] HCT IS 5% LESS SOURCE FOR DATA: [employer] 1800 OPERATION MANUAL( AUTOMATED BLOOD COUNTS AND [...] INDIVIDUALA AGED 2-19 YEARS EXCLUSIVE. A/G Ratio 2.9 CALC [employer] [facility] ([facility] NORMAL RANGES [...] HCT IS 5% LESS SOURCE FOR DATA: [employer] 1800 OPERATION MANUAL( AUTOMATED BLOOD COUNTS [...] REPRESENTS INDIVIDUALA AGED 2-19 YEARS EXCLUSIVE. Alp 55.0 U/L 35-129 [facility] ([facility] NORMAL RANGES [...] HCT IS 5% LESS SOURCE FOR DATA: [employer] 1800 OPERATION MANUAL( AUTOMATED BLOOD COUNTS AND [...] INDIVIDUALA AGED 2-19 YEARS EXCLUSIVE. Alt (SGPT) 13 U/L 0-41 [facility] ([facility] NORMAL RANGES [...] HCT IS 5% LESS SOURCE FOR DATA: [employer] 1800 OPERATION MANUAL( AUTOMATED BLOOD COUNTS AND [...] REPRESENTS INDIVIDUALA AGED 2-19 YEARS EXCLUSIVE. Tbili 0.25 mg/dL 0.0-1.2 [facility] NORMAL RANGES Age WBC [...] HCT IS 5% LESS SOURCE FOR DATA: [employer] 1800 OPERATION MANUAL( AUTOMATED BLOOD COUNTS AND [...] INDIVIDUALA AGED 2-19 YEARS EXCLUSIVE. Ast (Sgot) 12 U/L 0-40 [facility] NORMAL RANGES Age WBC [...] HCT IS 5% LESS SOURCE FOR DATA: [employer] 1800 OPERATION MANUAL( AUTOMATED BLOOD COUNTS AND [...] REPRESENTS INDIVIDUALA AGED 2-19 YEARS EXCLUSIVE. Osmolality-Calculated 290.0 CALC [facility] ([facility] [...] HCT IS 5% LESS SOURCE FOR DATA: [employer] 1800 OPERATION MANUAL( AUTOMATED BLOOD COUNTS AND [...] 2-19 YEARS EXCLUSIVE. Anion Gap 16 mmol/L [facility] ([facility] NORMAL RANGES [...] HCT IS 5% LESS SOURCE FOR DATA: [employer] 1800 OPERATION MANUAL( AUTOMATED BLOOD COUNTS [...] HCT IS 5% LESS SOURCE FOR DATA: [employer] 1800 OPERATION MANUAL( AUTOMATED BLOOD COUNTS AND [...] INDIVIDUALA AGED 2-19 YEARS EXCLUSIVE. eGFR Non-Afr. Afghan 70 # [facility] ([facility] NORMAL RANGES Age WBC RBC [...] HCT IS 5% LESS SOURCE FOR DATA: [employer] 1800 OPERATION MANUAL( AUTOMATED BLOOD COUNTS AND [...] 2-19 YEARS EXCLUSIVE. ID Date Data Source [id number] 08/17/2021 08:08:45 PM EDT [facility] Name Value Range Interpretation Code Description Data Izabela rce(s) Supporting Document(s) Discharge Summary [facility] DGBVBi3rRxHGKvRt99/TYYixUZGqp9DaMYupZYs0OWjbMSWvY9WpPQA9wJ7dNEC0FVhCIjKrOuNaGTC1 m [file] AgICAgICAgICAgICAgICAgICAgICAgICAgICAgICAgICAgICAgICAgICAgICAgICAgICAgICAgICAgIC PmSMHrDVIqTJClGJMhELAaSNXdVNGtSPMfAIWeQY1U ICAgICAgICAgICAgICAgICAgICAgICAgICAgICAgICAgICAgICAgICAgICAgICAgICAgICAgICAgICAg WHIzVPHdICGxCVYxVESgNILkXJYbEHRyNQVmPKEeUBRbZEIqJOExEC5JGGGqZBTdCFMcJTSuOXZqTDBu ICAgICAgICAgICAgICAgICAgICAgICAgICAgICAgIC BoJVVnCOAbLDEdOUQmTOAnEYOrLCLnHFJkUAMwHGCeJJAdKSNvMPEnOIIxPCEjTJHrFN2VTOCyKTTrYN AgICAgICAgICAgICAgICAgICAgICAgICAgICAgICAgICAgICAgICAgICAgICAgICAgICAgICAgICAgIC AgICAgICAgICAgICAgICAgICAgICAgICAgICAgICAg RJ0MYYYvQZXgIETiBSUeGHMkXRZwOJMqLQPtOOZzIBGkOTRhONPuHCYyWAAzMNKfSHYqNMZhUWMxARYu XSStYOViWFToLBWcUFSwRJQfUGKzAUAfTNWjACKtGLVnXYUpKUCdBXQvWI7XQCZpZZNlXPYeRYRcVHJx ICAgICAgICAgICAgICAgICAgICAgICAgICAgICAgIC YwQRUaRDJlDLVkGPJkWQZpJZLeHBIhRZGmTYGoZBUvAMFiHLVgMBIeMPOcSQDiYCPwNSShYI7UWOTuQI AgICAgICAgICAgICAgICAgICAgICAgICAgICAgICAgICAgICAgICAgICAgICAgICAgICAgICAgICAgIC AgICAgICAgICAgICAgICAgICAgICAgICAgICAgICAg RMQdJZ0ASUIiLNJyPYEsZDUfZFCeQVYvHOCeTYElEAVqOTDuIRYpDBPqTWAsFUFtICHjENHrHGDbHLFp YLXhILQkFXPaNITtQYInGMXqICXlCKNtXPGuFRJiMFDqAWRvQFOdUMUzWINiZV2RYPWoSHFqOCNtLWSc ICAgICAgICAgICAgICAgICAgICAgICAgICAgICAgIC NsJGWeKCIvCABoRCOqPNJiNOYtVIGbPNDlUYNdXCAxHEGmEMKpOIXzPOPrNYGnYEBpHQZiBAXqEX4HYO AgICAgICAgICAgICAgICAgICAgICAgICAgICAgICAgICAgICAgICAgICAgICAgICAgICAgICAgICAgIC AgICAgICAgICAgICAgICAgICAgICAgICAgICAgICAg SPMqMOTpNI6QJT41qSIir2H5LNAaJT3akka/Hh0EPGrldoIxhYLcRZ4CNlNaCN0gmb1AUtAoPP7kur6U YQjXVcOxW5X5sCIjZBPgCFWDGpXwE08iHEmuPj08TMrlWLCyWxOgXWi3Gz9RSbQzS9qxAGBmWoK8NYAp OzM2RNNvOsO1KODsVmTwYCZaRUOtXVXpOQSDCNU4IK SaHcHjMaLvTFQhAFruMFCTCDGmVWNlMuInHuYcFXZjTmYyERIBXH8CCpZyB1BnuC52DEZbZOy+Pg0KZW 0zp0StGNx7DtJuEO3irw4ZFWlQUgXbQ2GwxsK0WKH9QBNiZm1AKSJkPNXdtNC5ZBWmNAFSBsTgH6PgzI 85ONUKAm1+TJhgiaRqEkaFTsK9LXXth5GbDLx0DY8Q WFEwNFe4uUFbRZgrF9ealsxyTME4sZ1nztztDohjGveutImsI9xgULL5iNUfAL5WSqZxOAWdPM1rCJ8p BLVcWKWoSyU8HFCFPR2XWCXwJHXvlRNhFGAoXLSOBG7MUHfiCAK7AWEozvYmqRNaQRijKV5YLOChrpFs NTMgMCBSDQo+Fa4RKM5mj9FzHBt4MNMgJP5ash2MEZ nORqWeI8C7sDQwW0N2IHhyWi6FDXVnSTUbOQVxNSDMGMslRW5WMO1ewfF3PR3LbXHoBILvZNWteDYgQV i1G39huYScXWrjZS2LPWC+Quentin+Ax3IDFDaBQTuQSKfNeCzFELXDhZbF9OcL1LZu5ErB2NoIE82dTatdx HvHWuwOS0AOK5nEFPfEAPFZS6OjZIrkM4pcoR9KaKn JKNNKjWrC36scDBmUFDwWYVuGFRpPg8ZCEDnU8IgmjBlqDrhcdIcUMHuEDTMCS6HEEooioWwsMBuzQyq XW72fDjuXR7AZg1OXqNfTY7nzz9WhXDkOz4KOLF9Rh3XXUSkNKHhHKXqQQX7OAMfIpAwLLeuLSLrOUUx CJZ6TRMiRVTlPM2WWzZcTLQzMZnuPiSqBUZpZKIcae 5ELDXsCLQ8USpzRwBcOSHhFXLgFKaqEKZqQLQbCHJ4QRVkZRZzJG5ONcNmXDCbTNS3ECrzEKFdZIMwdf 9VOOPzITXvKkErBFPuRQWaIGXyYTsnAFFwSGZ2JhS4OLPsYNAgES7UEuEgZYUuTFZ1QPgpPZBpYZZjwt 8PSCDwTNWaUMP9KgRuWINgCIJxVMwsMJObQUG6Jiw0 RTLdYAEzWG1QFeSoCHHeNNEmPAweKRGbDDMlhm5PGBDxSLNbLZBxVLTyLTYcGRTxHRueNTXwGKR0KFH1 GYKaYFMbWT5VUlMpYEXdLTw8YXXjSMKgIUKiem1JXULiBAAsOWB2VVUaDQPrAVIsPPepJHZwUKI1OiC6 FODnSFXpZH6XXyGpBRGaXduqBjjjYAJoCSFwqc2SHD CkIRYnPMJ4UFMqCFYiGEBpCUnvWDUhQHT0IPs8FHVdOFAuXT0CZrCrBAFdFqObQHZoGQQyZRNaml3CTV GnYRQnOLF3LRNsTXBiFSTqPSswEHHbKND9MmvxZKLwEDDoUM9KGeXoVEMvCRRrEJdvZMQrSUIxmy7BFE XwZZQ0PSCjIgJmQVOlFWKiTXstFVZaABDlYTZwCHUs WXHrMK6FZoNcKUIqQDB6SIXnTSStRCKxgy4GXRQpUKT4JafjOsKxMZZsEGZsQIofOPZsNHCrCPDeDWDh KVCyZK0EPrTsEKKcZTQyRMLeCSMuYWHpff3NDUMfYOB3NJW3JGQhJXGqDEUwUGopFRIvNCL3UyW4IYDk ZDRhGP6GKqWqVKSuHWZ6KrPrAXIdNBSamz3MIJDvKA N9PjW2VQMjYTUhRMUtDSxxYVHzLIM0OHh6MHQmUYWjJQ1MRdUrTWLxDSC4JZFhZFBrBIOqph0DGORqEG P3Xsr5XJPgFWQlUENjFKswSDKcGUF7TYUjMJFyOWBqQR1CKoEuUVTjPJlsNcHfWXWsGUHclt8PTJSiWB J5Ntu9ECYfCAOxVDNvRJpyTDUjDDSoWwm9KSFyMGXq SX5SGfTgQUUqHTY4KLLjXLDwNOAdzt6ALZTqNOW4Ttq3JNFqJRNhUYXnVHrfQGLlMBDuANo9SHVrPJXm TM2VPvFpXQVnDMJ7LYDsCHAiEWLcsf4UXHRrJGO8MWKrRVTrRVKjSZSzJUncZPGySRC6LpI5ZFEjZXNj GG4KWwXaVMQlPFCrSUAfPVBaRBQrmg9MHURgGZG2Sk OnIUFwQMIzUBTvBFnzPYNfXJE9QRI4QYXuBHAfQN3EZiWqLYKkMRX8VMPoUPOaLSPosm3ZOACnBIG0Dg i2BLJnZTTyJAFfISppWXEjXVA4ZGcgIJJfVWRzSB2YMwYxTCLzFDwxQAYuWFSyMIHfht8AGIRuWVD4KT S0UOZwXQAzLFMdWXtyIPVdYEB2MpZ7KSHwSPGfOM7D WfXfEQtiJRELRee2HVmaQ8y5BCV2Lj2UU1Jqc0TyQSHwXVVMLTnpKZ8nadQvPKVyXs8CR0mIRbyePTWc RcWvQWFzOoBrWER3XLwkNeT5YKE6NVTyQQR2HD2mGPZ9GXLpOuT2VEOgBWJ1CZqsLUY1VXReUIZ6CfPe EeY7ZqAyTC7PXw8QRiM8FGW3mCJjFy2CAYh3MuhGDeXuAT6KFNv= ID Date Data Source [id number] 08/17/2021 12:39:43 PM [facility] Value Range Interpretation Code Description Data Izabela rce(s) Supporting Document(s) Glucose [Mass/volume] in Capillary blood by Glucometer 163 mg/dL 70- 140 H [facility] ID Date Data Source [id number] 08/17/2021 11:31:49 AM [facility] Value Range Interpretation Code Description Data Izabela rce(s) Supporting Document(s) Glucose [Mass/volume] in Capillary blood by Glucometer 208 mg/dL 70- 140 H [facility] ID Date Data Source [id number] 08/17/2021 10:28:25 AM [facility] Value Range Interpretation Code Description Data Izabela rce(s) Supporting Document(s) Glucose [Mass/volume] in Capillary blood by Glucometer 149 mg/dL 70- 140 H [facility] ID Date Data Source [id number] 08/17/2021 09:43:02 AM [facility] Value Range Interpretation Code Description Data Izabela rce(s) Supporting Document(s) Glucose [Mass/volume] in Capillary blood by Glucometer 94 mg/dL 70- 140 [facility] ID Date Data Source [id number] 08/17/2021 08:40:31 AM [facility] Name Value Range Interpretation Code Description Data Izabela rce(s) Supporting Document(s) Glucose [Mass/volume] in Capillary blood by Glucometer 80 mg/dL 70- 140 [facility] ID Date Data Source [id number] 08/17/2021 08:40:31 AM [facility] Name Value Range Interpretation Code Description Data Izabela rce(s) Supporting Document(s) Glucose [Mass/volume] in Capillary blood by Glucometer 64 mg/dL 70- 140 L [facility] ID Date Data Source [id number] 08/17/2021 08:57:30 AM [facility] Name Value Range Interpretation Code Description Data Izabela rce(s) Supporting Document(s) Bicarbonate [Moles/volume] in Serum 29 mmol/L 22-29 [facility] Chloride [Moles/volume] in Serum or Plasma 97 mmol/L 98-107 L [facility] Creatinine [Mass/volume] in Serum or Plasma 0.67 mg/dL 0.50-0.90 [facility] Glucose [Mass/volume] in Serum or Plasma 72 mg/dL 70-140 [facility] Potassium [Moles/volume] in Serum or Plasma 3.9 mmol/L 3.4-5.1 [facility] Sodium [Moles/volume] in Serum or Plasma 136 mmol/L 136-145 [facility] Urea nitrogen [Mass/volume] in Serum or Plasma 24 mg/dL 8-23 [facility] [facility] Anion gap 3 in Serum or Plasma 10 mmol/L 8-15 [facility] Osmolality of Serum or Plasma by calculation 284 mosm/kg 275-300 [facility] Creatinine/Urea nitrogen [Mass Ratio] in Serum or Plasma 36 [facility] Calcium [Mass/volume] in Serum or Plasma 9.3 mg/dL 8.8-10.2 [facility] Glomerular filtration rate/1.73 sq M pre dicted among non-blacks [Volume Rate/Area] in Serum or Plasma by Creatinine-based formula (MDRD) 82 mL/min/1.73m2 >60 [facility] Glomerular filtration rate/1.73 sq M pre dicted among blacks [Volume Rate/Area] in Serum or Plasma by Creatinine-based formula (MDRD) >60 [facility] ID Date Data Source [id number] 08/17/2021 10:14:18 AM EDT [facility] Value Range Interpretation Code Description Data Izabela rce(s) Supporting Document(s) Leukocytes [#/volume] in Blood by Automated count 8.2 10*3/uL 4-10 [facility] Erythrocytes [#/volume] in Blood by Automated count 3.76 10*6/uL 4.1- 5.3 L [facility] Hemoglobin [Mass/volume] in Blood 10.4 g/dL 11.5-15.5 L [facility] Hematocrit [Volume Fraction] of Blood by Automated count 32.1 % 3 6-45 L [facility] Erythrocyte mean corpuscular volume [Entitic volume] by Auto mated count 85.4 fL 80-96 [facility] Erythrocyte mean corpuscular hemoglobin [Entitic mass] by Automated count 27.6 pg 27-33 [facility] Erythrocyte mean corpuscular hemoglobin concentration [Mass/volume] by Automated count 32.3 g/dL 32.0-36.0 [facility] width [Ratio] by Automated count 15.4 % 11.5-14.5 H [facility] Platelets [#/volume] in Blood by Automated count 306 10*3/uL 150-400 [facility] UnconfirmedConfirmed ID Date Data Source [id number] [facility]/16[facility] Interpretation Code Description Data Izabela rce(s) Supporting Document(s) Glucose [Mass/volume] in Capillary blood by Glucometer 200 mg/dL 70- 140 H [facility] ID Date Data Source [id number] 08/16/2021 06:57:52 PM [facility] Value Range Interpretation Code Description Data Izabela rce(s) Supporting Document(s) Glucose [Mass/volume] in Capillary blood by Glucometer 178 mg/dL 70- 140 [facility] ID Date Data Source [id number] 08/16/2021 06:38:11 PM [facility] Value Range Interpretation Code Description Data Izabela rce(s) Supporting Document(s) Glucose [Mass/volume] in Capillary blood by Glucometer 139 mg/dL 70- 140 [facility] ID Date Data Source [id number] 08/16/2021 05:59:06 PM [facility] Value Range Interpretation Code Description Data Izabela rce(s) Supporting Document(s) Glucose [Mass/volume] in Capillary blood by Glucometer 115 mg/dL 70- 140 [facility] ID Date Data Source [id number] 08/16/2021 05:30:51 PM [facility] Value Range Interpretation Code Description Data Izabela rce(s) Supporting Document(s) Glucose [Mass/volume] in Capillary blood by Glucometer 81 mg/dL 70- 140 [facility] ID Date Data Source [id number] 08/16/2021 05:16:39 PM [facility] Value Range Interpretation Code Description Data Izabela rce(s) Supporting Document(s) Glucose [Mass/volume] in Capillary blood by Glucometer 63 mg/dL 70- 140 [facility] ID Date Data Source [id number] 08/16/2021 05:16:39 PM [facility] Value Range Interpretation Code Description Data Izabela rce(s) Supporting Document(s) Glucose [Mass/volume] in Capillary blood by Glucometer 54 mg/dL 70- 140 [facility] ID Date Data Source [id number] 08/16/2021 11:51:30 AM [facility] Value Range Interpretation Code Description Data Izabela rce(s) Supporting Document(s) Glucose [Mass/volume] in Capillary blood by Glucometer 186 mg/dL 70- 140 H [facility] ID Date Data Source [id number] 08/16/2021 08:05:04 AM [facility] Value Range Interpretation Code Description Data Izabela rce(s) Supporting Document(s) Glucose [Mass/volume] in Capillary blood by Glucometer 86 mg/dL 70- 140 [facility] ID Date Data Source [id number] 08/16/2021 08:54:19 AM [facility] Value Range Interpretation Code Description Data Izabela rce(s) Supporting Document(s) Leukocytes [#/volume] in Blood by Automated count 10.8 10*3/uL 4-10 H [facility] Erythrocytes [#/volume] in Blood by Automated count 3.73 10*6/uL 4.1- 5.3 L [facility] Hemoglobin [Mass/volume] in Blood 10.1 g/dL 11.5-15.5 L [facility] Hematocrit [Volume Fraction] of Blood by Automated count 31.8 % 3 6-45 L [facility] Erythrocyte mean corpuscular volume [Entitic volume] by Auto mated count 85.4 fL 80-96 [facility] Erythrocyte mean corpuscular hemoglobin [Entitic mass] by Automated count 27.2 pg 27-33 [facility] Erythrocyte mean corpuscular hemoglobin concentration [Mass/volume] by Automated count 31.9 g/dL 32.0-36.0 [facility] E[facility]throcyte distribution width [Ratio] by Automated count 15.3 % 11.5-14.5 H [facility] Platelets [#/volume] in Blood by Automated count 331 10*3/uL 150-400 [facility] Differential cell count method - Blood [facility] Neutrophils/100 leukocytes in Blood by Automated count 71 % [facility] Lymphocytes/100 leukocytes in Blood by Automated count 16 % [facility] Monocytes/100 leukocytes in Blood by Automated count 10 % [facility] Eosinophils/100 leukocytes in Blood by Automated count 2 % [facility] Basophils/100 leukocytes in Blood by Automated count 1 % [facility] Neutrophils [#/volume] in Blood by Automated count 7.66 10*3/uL 1.8-7 .0 H [facility] Lymphocytes [#/volume] in Blood by Automated count 1.70 10*3/uL 1.2-4 .0 [facility] Monocytes [#/volume] in Blood by Automated count 1.10 10*3/uL 0-0.8 H [facility] Eosinophils [#/volume] in Blood by Automated count 0.23 10*3/uL 0-0.5 [facility] Basophils [#/volume] in Blood by Automated count 0.09 10*3/uL 0-0.2 [facility] Nucleated erythrocytes/100 leukocytes [Ratio] in Blood by Automated count 0 /100{WBCs} 0-0 [facility] ID Date Data Source [id number] 08/16/2021 01:47:22 PM EDT [facility] Name Value Range Interpretation Code Description Data Izabela rce(s) Supporting Document(s) Magnesium [Mass/volume] in Serum or Plasma 2.0 mg/dL 1.6-2.4 [facility] ID Date Data Source [id number] 08/16/2021 01:47:22 PM EDT [facility] Name Value Range Interpretation Code Description Data Izabela rce(s) Supporting Document(s) Bicarbonate [Moles/volume] in Serum 30 mmol/L 22-29 H [facility] Chloride [Moles/volume] in Serum or Plasma 100 mmol/L 98-107 [facility] Creatinine [Mass/volume] in Serum or Plasma 0.69 mg/dL 0.50-0.90 [facility] Glucose [Mass/volume] in Serum or Plasma 69 mg/dL 70-140 L [facility] Potassium [Moles/volume] in Serum or Plasma 3.9 mmol/L 3.4-5.1 [facility] Hemolyzed Sodium [Moles/volume] in Serum or Plasma 139 mmol/L 136-145 [facility] Urea nitrogen [Mass/volume] in Serum or Plasma 26 mg/dL 8-23 H [facility] Anion gap 3 in Serum or Plasma 9 mmol/L 8-15 [facility] Osmolality of Serum or Plasma by calculation 291 mosm/kg 275-300 [facility] Creatinine/Urea nitrogen [Mass Ratio] in Serum or Plasma 38 [facility] Calcium [Mass/volume] in Serum or Plasma 8.6 mg/dL 8.8-10.2 L [facility] Glomerular filtration rate/1.73 sq M pre dicted among non-blacks [Volume Rate/Area] in Serum or Plasma by Creatinine-based formula (MDRD) 81 mL/min/1.73m2 >60 [facility] Glomerular filtration rate/1.73 sq M pre dicted among blacks [Volume Rate/Area] in Serum or Plasma by Creatinine-based formula (MDRD) >60 [facility] ID Date Data Source [id number] 08/16/2021 01:47:22 PM EDT [facility] Name Value Range Interpretation Code Description Data Izabela rce(s) Supporting Document(s) Phosphate [Mass/volume] in Serum or Plasma 4.1 mg/dL 2.5-4.5 [facility] ID Date Data Source [id number] 08/15/2021 09:13:08 PM EDT [facility] Name Value Range Interpretation Code Description Data Izabela rce(s) Supporting Document(s) Glucose [Mass/volume] in Capillary blood by Glucometer 209 mg/dL 70- 140 H [facility] ID Date Data Source [id number] 08/15/2021 05:52:12 PM EDT [facility] Name Value Range Interpretation Code Description Data Izabela rce(s) Supporting Document(s) Glucose [Mass/volume] in Capillary blood by Glucometer 195 mg/dL 70- 140 H [facility] ID Date Data Source [id number] 08/15/2021 12:52:57 PM EDT [facility] Name Value Range Interpretation Code Description Data Izabela rce(s) Supporting Document(s) Glucose [Mass/volume] in Capillary blood by Glucometer 151 mg/dL 70- 140 H [facility] ID Date Data Source [id number] 08/15/2021 10:57:12 AM EDT [facility] Name Value Range Interpretation Code Description Data Izabela rce(s) Supporting Document(s) ED Provider Note [facility] [id number]/VBYvzFBKax4LgPIfzUZs7RMvlFJAwF2WvFDN7kK9aULV3UHbHJyMeMsBcNYH3 lbm [file] KSPHOZdfQE5YKG2pswY3XX3OpHAfSNCoWKZkpBSaNOe0L54iuVGoAMzjUT2KSFX+Quentin+Ou2UBSCsXQLc VLAbAsUrCLTLFiPfC6TaQ5VDe0UbM4AjQH90xRdhexUmLHctFR3FYW4eHLOmESMKEJ4QhCKooE8chkT4 TORiGROHFbAeZ69lyNAmUYEtJSWiJZVgLa4QYYZlL1 AtkzVwwHueeeIjYMKtLEXDYW1RPSluisJlfWGfzIulTG70wGgrLY9ZCv7FGmWpYC5zjl9GnTTnNu5ROQ M7IJ3JXJQiIHLeIXItREL9HSPfNrOcVEhvOHEjDNVoFXF0QAViJSNpIC2PExWaXLAhKWW5RSUoXWLfIL Tjpx4AFVJjAXD8HSJzClOwBOFcYYFbJGfwETMeYRUa HUI8KTOfECNsNH8MGaYfPQUmKPD1EEqxPXWhDERlpe5FMXZlPRMmMdduMlUiGVSwPGFbPLqnADAoAQO8 UFh7YTTnRGCcYI0LPjNxOSLnTSKvKUNcRKDtIVZhgm9CAXEoEWPeFDO6VRIqZKIiMCQtCYmjOWSzWEA1 ASalRDFdDKOuRQ9JFvTdDWGwBUIdASSyKURgDROmla 4FWHKiXKCpWeE1WFWsJXBeFSDvILpnXQLxCEF4KCN4LDYwISGzCR6PRhBlHCMxWLKvZoLiTKRuTVJkfh 7YCEJcZSZaGVQ5CiGvGGGnPOOfASgyWAFjYDT6RXvfMETxLZLzHP0FJlPxLXUiMbB7MMHxAITzUYExdw 0RMNNhADToUWs4OcOfLGIpGNHpCVzeUNToFWB7Ovy3 GJUgHFOkTZ8UKqJnKZLnOdB3SOLuFMMlDSQdsw8IXULfETLeFRH0UNKsMJNrBCHkRJppXNIwSLL0Flu6 TYJdOUTxJT1PYeCjOGRhJkC9YHSpISCoRJUpdb4GHNAwFXNkDfq6XvMnLOUiDTHgCMdnGGCjINT5PDR0 DLJpUSDdUW7HEtVaXGHjWcbhADGxIRUlXZFhej3DEN UsATYtRJL3EuLrAVXnCHOeYCtwJREkBRO7CKt0XCXeUYGdPY9GTmKvTLIvNja3MkBcXSQvBYUmlb5FLP BmCUYpWENtHPLsKUWtLMGhHBpxRANgOOU2JZC6PGGtGLOzIX6FGsVjEHNpKeD2FiGbUTOrKZIuos7XZL QqEYCfGQu9IDZhCZGiDPMzACpfCREaWXXuEBFtHFVk NYDmPV6NWeTzVKMiETI1FDjvWKIzWCElsd0BGYHyXFV1Eyg7WjScTQZqNQWuCYzzXZEvWVQsEUj4HMIo FSFuNW7ONzFiIHZjCKErNAXjOXTyCNTzvx2FZIYyCCE4LtS1LHXvEPKhRFLqFPeeMHCySOBnOLbrSKUi JXIlDF9TYlJkOLAeWVQeBXLkQFYjAZEouq3QXTBlNX Z9EOF2GyVpMHUmUWMtYReoCNNqBWV6UtNqKFHnVJJlPQ5DWnLiSRFmKQO8UOSmYRWwXUSfpj1MJRAfJG Y6GWh0LvNgNASnRQIpRDecODEzXEQ0OAD5CMQgJMDtHM6FUuChTDZxPGLbWCjfSZXlGQDina3VzAUrtQ lxix6NRXuSPn5GjNiyBPR3DHwcWk9lzNQ9DbHzORYR Jc5PeoXxSEZxRTVZRVkpRRAtHHToAQSgUJH9OYqfSeK2URWmHUB6YPXkESG9MfXrYPZ3QxX6VEOtXtN1 OYWyO1J9ZQWqESHaMZk7JADaHdCeJUO8SWn+VN5rXJw+Qu6Ar9NnidE2toFaZOd9AnF7Gj2ZAWEYO9FM Cg== ID Date Data Source [id number] 08/15/2021 08:45:49 AM EDT [facility] Value Range Interpretation Code Description Data Izabela rce(s) Supporting Document(s) Glucose [Mass/volume] in Capillary blood by Glucometer 90 mg/dL 70- 140 [facility] ID Date Data Source [id number] 08/14/2021 08:40:54 PM [facility] Value Range Interpretation Code Description Data Izabela rce(s) Supporting Document(s) Glucose [Mass/volume] in Capillary blood by Glucometer 220 mg/dL 70- 140 H [facility] ID Date Data Source [id number] 08/14/2021 05:35:18 PM [facility] Value Range Interpretation Code Description Data Izabela rce(s) Supporting Document(s) Glucose [Mass/volume] in Capillary blood by Glucometer 134 mg/dL 70- 140 [facility] ID Date Data Source [id number] 08/14/2021 01:18:36 PM [facility] Value Range Interpretation Code Description Data Izabela rce(s) Supporting Document(s) Glucose [Mass/volume] in Capillary blood by Glucometer 392 mg/dL 70- 140 H [facility] ID Date Data Source [id number] 08/14/2021 09:28:55 AM [facility] Name Value Range Interpretation Code Description Data Izabela rce(s) Supporting Document(s) Glucose [Mass/volume] in Capillary blood by Glucometer 122 mg/dL 70- 140 [facility] ID Date Data Source [id number] 08/14/2021 05:26:43 AM [facility] Value Range Interpretation Code Description Data Izabela rce(s) Supporting Document(s) Parathyrin.intact [Mass/volume] in Serum or Plasma 67 pg/mL 15-65 H [facility] ID Date Data Source [id number] 08/14/2021 04:58:59 AM [facility] Value Range Interpretation Code Description Data Izabela rce(s) Supporting Document(s) Leukocytes [#/volume] in Blood by Automated count 11.3 10*3/uL 4-10 H [facility] Erythrocytes [#/volume] in Blood by Automated count 3.39 10*6/uL 4.1- 5.3 L [facility] Hemoglobin [Mass/volume] in Blood 9.2 g/dL 11.5-15.5 [facility] Hematocrit [Volume Fraction] of Blood by Automated count 28.9 % 3 6-45 [facility] Erythrocyte mean corpuscular volume [Entitic volume] by Auto mated count 85.4 fL 80-96 [facility] Erythrocyte mean corpuscular hemoglobin [Entitic mass] by Automated count 27.3 pg 27-33 [facility] Erythrocyte mean corpuscular hemoglobin concentration [Mass/volume] by Automated count 32.0 g/dL 32.0-36.0 [facility] E[facility]th[facility] distribution width [Ratio] by Automated count 15.2 % 11.5-14.5 [facility] Platelets [#/volume] in Blood by Automated count 333 10*3/uL 150-400 [facility] ID Date Data Source [id number] 08/14/2021 05:30:03 AM [facility] Value Range Interpretation Code Description Data Izabela rce(s) Supporting Document(s) Bicarbonate [Moles/volume] in Serum 27 mmol/L 22-29 [facility] Chloride [Moles/volume] in Serum or Plasma 100 mmol/L 98-107 [facility] Creatinine [Mass/volume] in Serum or Plasma 0.58 mg/dL 0.50-0.90 [facility] Glucose [Mass/volume] in Serum or Plasma 140 mg/dL 70-140 [facility] Potassium [Moles/volume] in Serum or Plasma 3.6 mmol/L 3.4-5.1 [facility] Sodium [Moles/volume] in Serum or Plasma 137 mmol/L 136-145 [facility] Urea nitrogen [Mass/volume] in Serum or Plasma 30 mg/dL 8-23 H [facility] Anion gap 3 in Serum or Plasma 10 mmol/L 8-15 [facility] Osmolality of Serum or Plasma by calculation 293 mosm/kg 275-300 [facility] Creatinine/Urea nitrogen [Mass Ratio] in Serum or Plasma 51 [facility] Calcium [Mass/volume] in Serum or Plasma 8.4 mg/dL 8.8-10.2 L [facility] Glomerular filtration rate/1.73 sq M pre dicted among non-blacks [Volume Rate/Area] in Serum or Plasma by Creatinine-based formula (MDRD) 86 mL/min/1.73m2 >60 [facility] Glomerular filtration rate/1.73 sq M pre dicted among blacks [Volume Rate/Area] in Serum or Plasma by Creatinine-based formula (MDRD) >60 [facility] ID Date Data Source [id number] 08/14/2021 05:30:03 AM [facility] Name Value Range Interpretation Code Description Data Izabela rce(s) Supporting Document(s) Magnesium [Mass/volume] in Serum or Plasma 2.4 mg/dL 1.6-2.4 [facility] ID Date Data Source [id number] 08/14/2021 05:30:03 AM [facility] Value Range Interpretation Code Description Data Izabela rce(s) Supporting Document(s) Phosphate [Mass/volume] in Serum or Plasma 2.6 mg/dL 2.5-4.5 [facility] ID Date Data Source [id number] 08/14/2021 05:45:33 AM [facility] Value Range Interpretation Code Description Data Izabela rce(s) Supporting Document(s) Calcidiol [Mass/volume] in Serum or Plasma 12 ng/mL >30 L [facility] ID Date Data Source [id number] 08/14/2021 02:56:05 AM [facility] Value Range Interpretation Code Description Data Izabela rce(s) Supporting Document(s) Glucose [Mass/volume] in Capillary blood by Glucometer 141 mg/dL 70- 140 H [facility] ID Date Data Source [id number] 08/14/2021 02:01:45 AM [facility] Value Range Interpretation Code Description Data Izabela rce(s) Supporting Document(s) Glucose [Mass/volume] in Capillary blood by Glucometer 192 mg/dL 70- 140 [facility] ID Date Data Source [id number] 08/14/2021 12:30:16 AM [facility] Value Range Interpretation Code Description Data Izabela rce(s) Supporting Document(s) Glucose [Mass/volume] in Capillary blood by Glucometer 382 mg/dL 70- 140 [facility] ID Date Data Source [id number] 08/13/2021 11:29:43 PM [facility] Value Range Interpretation Code Description Data Izabela rce(s) Supporting Document(s) Glucose [Mass/volume] in Capillary blood by Glucometer 296 mg/dL 70- 140 [facility] ID Date Data Source [id number] 08/13/2021 08:39:43 PM [facility] Value Range Interpretation Code Description Data Izabela rce(s) Supporting Document(s) Glucose [Mass/volume] in Capillary blood by Glucometer 312 mg/dL 70- 140 [facility] ID Date Data Source [id number] 08/13/2021 06:04:45 PM [facility] Value Range Interpretation Code Description Data Izabela rce(s) Supporting Document(s) Glucose [Mass/volume] in Capillary blood by Glucometer 245 mg/dL 70- 140 [facility] ID Date Data Source [id number] 08/13/2021 01:08:39 PM [facility] Value Range Interpretation Code Description Data Izabela rce(s) Supporting Document(s) Glucose [Mass/volume] in Capillary blood by Glucometer 181 mg/dL 70- 140 [facility] ID Date Data Source [id number] 08/13/2021 01:11:22 PM [facility] Value Range Interpretation Code Description Data Izabela rce(s) Supporting Document(s) Magnesium [Mass/volume] in Serum or Plasma 2.3 mg/dL 1.6-2.4 [facility] ID Date Data Source [id number] 08/13/2021 01:11:22 PM [facility] Name Value Range Interpretation Code Description Data Izabela rce(s) Supporting Document(s) Phosphate [Mass/volume] in Serum or Plasma 2.6 mg/dL 2.5-4.5 [facility] ID Date Data Source [id number] 08/13/2021 01:29:33 PM [facility] Name Value Range Interpretation Code Description Data Izabela rce(s) Supporting Document(s) Albumin [Mass/volume] in Serum or Plasma by Bromocresol green (BCG) dye binding method 4.0 g/dL 3.5-5.2 [facility] Bilirubin.total [Mass/volume] in Serum or Plasma 0.3 mg/dL <1.2 [facility] Calcium [Mass/volume] in Serum or Plasma 8.0 mg/dL 8.8-10.2 L [facility] Chloride [Moles/volume] in Serum or Plasma 100 mmol/L 98-107 [facility] Creatinine [Mass/volume] in Serum or Plasma 0.72 mg/dL 0.50-0.90 [facility] Glucose [Mass/volume] in Serum or Plasma 226 mg/dL 70-140 H [facility] Alkaline phosphatase [Enzymatic activity/volume] in Serum or Plasma 49 U/L 35-104 [facility] Potassium [Moles/volume] in Serum or Plasma 3.8 mmol/L 3.4-5.1 [facility] Protein [Mass/volume] in Serum or Plasma 5.8 g/dL 6.4-8.3 L [facility] Sodium [Moles/volume] in Serum or Plasma 137 mmol/L 136-145 [facility] Aspartate aminotransferase [Enzymatic activity/volume] in Serum or Plasma 15 U/L <32 [facility] Urea nitrogen [Mass/volume] in Serum or Plasma 30 mg/dL 8-23 H [facility] Confirmed Osmolality of Serum or Plasma by calculation 297 mosm/kg 275-300 [facility] Confirmed Creatinine/Urea nitrogen [Mass Ratio] in Serum or Plasma 42 [facility] Confirmed Bicarbonate [Moles/volume] in Serum 26 mmol/L 22-29 [facility] Alanine aminotransferase [Enzymatic activity/volume] in Seru m or Plasma 12 U/L <33 [facility] Anion gap 3 in Serum or Plasma 11 mmol/L 8-15 [facility] Glomerular filtration rate/1.73 sq M pre dicted among non-blacks [Volume Rate/Area] in Serum or Plasma by Creatinine-based formula (MDRD) 80 mL/min/1.73m2 >60 [facility] Glomerular filtration rate/1.73 sq M pre dicted among blacks [Volume Rate/Area] in Serum or Plasma by Creatinine-based formula (MDRD) >60 [facility] ID Date Data Source [id number] 08/13/2021 09:05:16 AM [facility] Value Range Interpretation Code Description Data Izabela rce(s) Supporting Document(s) Glucose [Mass/volume] in Capillary blood by Glucometer 131 mg/dL 70- 140 [facility] ID Date Data Source [id number] 08/13/2021 03:16:55 AM [facility] Value Range Interpretation Code Description Data Izabela rce(s) Supporting Document(s) Glucose [Mass/volume] in Capillary blood by Glucometer 80 mg/dL 70- 140 [facility] ID Date Data Source [id number] 08/12/2021 11:33:06 PM [facility] Value Range Interpretation Code Description Data Izabela rce(s) Supporting Document(s) Glucose [Mass/volume] in Capillary blood by Glucometer 282 mg/dL 70- 140 H [facility] ID Date Data Source [id number] 08/12/2021 09:52:13 PM [facility] Value Range Interpretation Code Description Data Izabela rce(s) Supporting Document(s) Glucose [Mass/volume] in Capillary blood by Glucometer 354 mg/dL 70- 140 [facility] ID Date Data Source [id number] 08/12/2021 06:08:49 PM [facility] Value Range Interpretation Code Description Data Izabela rce(s) Supporting Document(s) Glucose [Mass/volume] in Capillary blood by Glucometer 302 mg/dL 70- 140 [facility] ID Date Data Source [id number] 08/13/2021 06:43:00 AM [facility] Service Cmnt XXX-Imp : NoneMicroorganism XXX Cult : Urine NEGATIVE for L. pneumophila serogroup 1 antigen by immunochromatographic assay. This test does not detect infections due to other L. pneumophila serogroups or to other Legionella species. Name Value Range Interpretation Code Description Data Izabela rce(s) Supporting Document(s) ID Date Data Source [id number] 08/12/2021 03:48:13 PM [facility] Name Value Range Interpretation Code Description Data Izabela rce(s) Supporting Document(s) Glucose [Mass/volume] in Capillary blood by Glucometer 313 mg/dL 70- 140 H [facility] ID Date Data Source [id number] 08/12/2021 12:12:45 PM [facility] Name Value Range Interpretation Code Description Data Izabela rce(s) Supporting Document(s) Glucose [Mass/volume] in Capillary blood by Glucometer 152 mg/dL 70- 140 H [facility] ID Date Data Source [id number] 08/12/2021 09:16:47 AM [facility] MR BRAIN WITHOUT CONTRAST [id number] ULTInterpreted by:Alena Cho MDORDERING CLINICAL INFORMATION: [...] rce(s) Supporting Document(s) ID Date Data Source [id number] 08/12/2021 08:53:42 AM [facility] Value Range Interpretation Code Description Data Izabela rce(s) Supporting Document(s) Glucose [Mass/volume] in Capillary blood by Glucometer 115 mg/dL 70- 140 [facility] ID Date Data Source [id number] 08/12/2021 03:39:44 AM [facility] Value Range Interpretation Code Description Data Izabela rce(s) Supporting Document(s) Glucose [Mass/volume] in Capillary blood by Glucometer 183 mg/dL 70- 140 [facility] [facility] Data Source [id number] 08/11/2021 11:45:41 PM [facility] Value Range Interpretation Code Description Data Izabela rce(s) Supporting Document(s) Glucose [Mass/volume] in Capillary blood by Glucometer 219 mg/dL 70- 140 H [facility] ID Date Data Source [id number] 08/11/2021 08:16:40 PM [facility] Value Range Interpretation Code Description Data Izabela rce(s) Supporting Document(s) Glucose [Mass/volume] in Capillary blood by Glucometer 204 mg/dL 70- 140 H [facility] ID Date Data Source [id number] 08/11/2021 03:33:04 PM [facility] Value Range Interpretation Code Description Data Izabela rce(s) Supporting Document(s) Glucose [Mass/volume] in Capillary blood by Glucometer 212 mg/dL 70- 140 [facility] ID Date Data Source [id number] 08/11/2021 02:47:51 PM EDT [facility] XR CHEST FRONTAL ONLY [id number] RESULTI nterpreted by:Jose Whatley III, [facility] INFORMATION: Exam: XR Chest Exam date and time: 08/11/2021 1:44 PM Age: 81 years old Clinical indication: Chronic obstructive pulmonary disease with (acute) exacerbation; Other: Respiratory distress with tachycardia and hypertension TECHNIQUE: Imaging protocol: XR of the chest. Views: 1 view. Total images: 3 COMPARISON: CT THORAX WITH CONTRAST [id number] 08/10/2021 5:32 AM FINDINGS: Lungs: Coarse chronic [...] rce(s) Supporting Document(s) ID Date Data Source [id number] 08/11/2021 03:00:46 PM EDT [facility] Name Value Range Interpretation Code Description Data Izabela rce(s) Supporting Document(s) Lactate [Moles/volume] in Serum or Plasma 1.5 mmol/l 0.5-2.2 [facility] ID Date Data Source [id number] 08/11/2021 01:08:25 PM EDT [facility] Name Value Range Interpretation Code Description Data Izabela rce(s) Supporting Document(s) EKG [facility] YMGIRq6pYbMQMdXvq7LvKaQoQDWwYN1ypzx7D9T3wQIsB8ZkeCEix5ejO0NiF5DuKKLwFYEHGK6OvSBs jb2 [file] tFPyf/vBA3xl/Pv5J/DELIVERY ASSISTANT/f2ok+Lo7n90FfuDC+VwO [file] 95tR9LAs6zj0/78Vkwo7+++iW1mR744f/71B7q93+W 33x6/9BQr3ovect30zfNd7/yIec84vmEQ1/0aqb4x372/jdavv+3nZMvY1s5upIHx8e//d3bNx8/f//m 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/874dJsa3++kgt9EIIm/S/dmGp829wFd+8+3IL+5ft0Wh6pt/ry6y/e/Zd33/bZieaX7BG7E++/ yKwb7VbcfLtoB+8ebz++f/b3+YjfPEfyxXePdx+eLf 3Tuy+eex9nfJ0s7ooVqsZb53WqJq62zslWn2r/1UUPb07+9/b9b96/wEqs1uOsl+ePT49/yuBug7Hgq4 GnkP7G/bdWct//E47528LU5xzzb82m8Kdp/+nx1W+x4bAgPk3jmpoGy7UR/X/RmneFY44iyvbRm+nx8T eeB584+fxvSMsBb+740x2sn4//w59//OHfHv/1/zy+ +8Mf//j9n//8w/d//MXj8+9/+oBJi0a8711m26///oQfdt54B1Y+yjtXPrvWZ0/t5usv/2mUgKxMM6r3 8cdf/HTkr2xGwevu5M+/L765bjlL99/f/l9h+t7vMPc/Ts43hbwZqeKj+s0X+y4TZDy1s5cAq0PmcnN8 evv8Yh/Oa4AsIBklGq0+8O8/POVzC+uzx+Pf1o7l8A xKS0a04YAO0vPPWciE0h4Wk7ril/Xo+/z+ht0zXPujJOItP9QJO24k73753O/+8fHn7//cn8ujdiqSN3 hA90U//uXnrQfvqQ/3cVKhcu6g1Gmf/uOHP/+vv+n4rn7iijK/K33JG3+e10A130/wIW6adm96/oc//f Jh5k8Y83uIh5cV++dPv/rnT7/K09guVyxtme3atcUn de+eC26cG1m+y89d0nLm+dzM+/xJrbS2f4/58ZefHt//7x/+8tefzXlvdf/yP3/4pW5ppLqma/f8d/o/ f/7Xv//K7jMtrbVFk7//6qHB3jh+2+//5++//8sfvv/fRh9e06I31chv14++nS107f/+9b1HiB//9Kcf TlnchDW37OCh9l/+9PvPhorZ/YSQUeHmf/rh9//9pz /8/fqFif95rbK+hacqR5Hha/uN79m0s50+ept5048dyfnB/NWX97L+bWh4u4v/0///W7r9cdMqxnY//f 1/++FRHn/137xCRNSqjpSWuPMnMPjlt1p4At+A2e2kbk86sXNySO/6p/7Vx8/ffXx++ud06t7ek1736N q1zeij9qae/eD/JN52dF7NEU7zm2OeLLSdIpEvPM7u cqjbFNKxOM6xqnu1C8WvsCazCNgKQVOmHm7yuDXsQY7LTQY0PMhrYYLpLAVcA5XmwW0bF05zjCGzWpEi TRGDNN0XipK7AXI6DVQ8EMUmNaVvMZZgIQ41FIMkCNXAGb6bujFoHvwEJfWkMT4huma6Y7D3gJJjH413 nSmnilPdCJ3Uj0FuyJTwVE1PpUIvoHWrABFgYVZoV7 edm5QdCEiaBMUIYi3eomFhGkgXFeHbBV7ymdd0U3U1uKeyxsKkYTHNIEmtSuwrBN5apPeytcdlI2EhkJ DyVBAgZ3KrLEJyf42SAYErDXfICiFuUqLbIHCmBKUgRYdnSkYsUIPrBXQvPSWuWV9YnIVdSZRkRYSRTJ xhYponNBCypY5wtONIn7EjZWFZFGRWHHNFFHAHMYDY CTHvWZulBABgCZLwZ0UsyuUptTXjFIKBQRlgEsfkAPJdoJ5wpYnlA1GaCTT0x8LaFG7AW2LvOZTrSQKJ ADL5e2LsPBXwbefuovcrDuZeFFNuCJToMXQaCC7Rzt5viXOtqsPiHZMWIDrqLrhwYF4oqTkhepvhK8Bu aWVzKSA+OiOiRB1dlf3+OcQjWTJuHaq8YERwCHhrBK WrABPaZDDrE0qaYDExEmZnGWZoYtWfZS5Vv5TlaLTaFj6bzmDgGynHvPXdXpjxSHWmIWApJDDtMcDUKO BqILObGAOmUTL3ARPmQYSoTJsvPRYeVBe2QnL7GQRjVMAhFC8vQdLvIJXsZyszInnwUCTqQJZlkkFJNT IqKFO6LxStQdYqQRVoUVDuEFskMIVpREYwOVRqWMS8 LQA5GRHgPwRpSKUtIQGkDPRpBXKrEKGauhIXSHBdVUHwXXH3HIVoOXCaHTCmQUiyPTLaZJLiXUaiAMCl OZIpQN6bJdRnCFLvEOIxLJuzXPNxTXJedwRFGOHaFPMeXXHcTMDcOOXqACTuAQosZEWaHGBwTBAdQMGz RSPfEC0gDdKiNGEtWKM3HDQtBZDbXOCdgbBNNEFwRZ FxIMv8ZNZwLFYdKPJjBSaoRPXbETAgHLV2BAUeGYJbDW1qObNvPNClTJA3MuIdZZKiUEHbkdEJCTAlUI RrWKD9RtHyTWAtACDoTOymHXSvSBXzJLjfZINtUTXrQV1sViCpJXSpDTBtADafJALgYBZxewORWJXtII RcAHIyIdBtESIrTHPzNAyzYNGrTGj4XmH1EFQpWIDa FD5sHzMzLUQhEZO0BGttVIVzZIHyxhGWCBVnRKHfNAbaLRUvFIBjDVKmRVwmQTRnPYGpVFN1SQPuBQNr HL4uOtNmRGSxZLLzCRUsHdI2GeNiPuJYcTUpnBrridp0LCvhB5e1XZAdEBeyZE7jmlAjVSTpJmwdUb8w mRU2NMTqOkqATx3Db7HrfpJ0bpWqDsn7MmRvGmFxIM3L ID Date Data Source [id number] 08/11/2021 02:09:09 PM [facility] Value Range Interpretation Code Description Data Izabela rce(s) Supporting Document(s) Cardiactroponin T pnl SerPlHS 39 ng/L <14 H [facility] ID Date Data Source [id number] 08/11/2021 02:09:09 PM [facility] Value Range Interpretation Code Description Data Izabela rce(s) Supporting Document(s) Bicarbonate [Moles/volume] in Serum 25 mmol/L 22-29 [facility] Chloride [Moles/volume] in Serum or Plasma 101 mmol/L 98-107 [facility] Creatinine [Mass/volume] in Serum or Plasma 0.66 mg/dL 0.50-0.90 [facility] Glucose [Mass/volume] in Serum or Plasma 226 mg/dL 70-140 H [facility] Potassium [Moles/volume] in Serum or Plasma 4.0 mmol/L 3.4-5.1 [facility] Sodium [Moles/volume] in Serum or Plasma 139 mmol/L 136-145 [facility] Urea nitrogen [Mass/volume] in Serum or Plasma 17 mg/dL 8-23 [facility] Anion gap 3 in Serum or Plasma 13 mmol/L 8-15 [facility] Osmolality of Serum or Plasma by calculation 297 mosm/kg 275-300 [facility] Creatinine/Urea nitrogen [Mass Ratio] in Serum or Plasma 26 [facility] Calcium [Mass/volume] in Serum or Plasma 8.3 mg/dL 8.8-10.2 L [facility] Glomerular filtration rate/1.73 sq M pre dicted among non-blacks [Volume Rate/Area] in Serum or Plasma by Creatinine-based formula (MDRD) 82 mL/min/1.73m2 >60 [facility] Glomerular filtration rate/1.73 sq M pre dicted among blacks [Volume Rate/Area] in Serum or Plasma by Creatinine-based formula (MDRD) >60 [facility] ID Date Data Source [id number] 08/11/2021 02:09:09 PM [facility] Value Range Interpretation Code Description Data Izabela rce(s) Supporting Document(s) Magnesium [Mass/volume] in Serum or Plasma 2.0 mg/dL 1.6-2.4 [facility] ID Date Data Source [id number] 08/12/2021 09:05:49 PM [facility] Value Range Interpretation Code Description Data Izabela rce(s) Supporting Document(s) Cholesterol [Mass/volume] in Serum or Plasma 237 mg/dL <200 H [facility] Triglyceride [Mass/volume] in Serum or Plasma 139 mg/dL <150 [facility] Cholesterol in HDL [Mass/volume] in Serum or Plasma 72 mg/dL >50 [facility] Cholesterol in LDL [Mass/volume] in Serum or Plasma by calcu lation 137 mg/dL <100 H [facility] Cholesterol in VLDL [Mass/volume] in Serum or Plasma by calc ulation 28 mg/dl 16-42 [facility] Cholesterol non HDL [Mass/volume] in Serum or Plasma 165 mg/dL <130 H [facility] ID Date Data Source [id number] 08/11/2021 01:08:56 PM [facility] Value Range Interpretation Code Description Data Izabela rce(s) Supporting Document(s) Glucose [Mass/volume] in Capillary blood by Glucometer 218 mg/dL 70- 140 [facility] ID Date Data Source [id number] [facility] Code Description Data Izabela rce(s) Supporting Document(s) Glucose [Mass/volume] in Capillary blood by Glucometer 149 mg/dL 70- 140 H [facility] ID Date Data Source [id number] 08/11/2021 10:27:30 AM [facility] Value Range Interpretation Code Description Data Izabela rce(s) Supporting Document(s) pH of Arterial blood 7.41 7.38-7.44 [facility] Carbon dioxide [Partial pressure] in Arterial blood 49 mm[Hg] 35-40 H [facility] Oxygen [Partial pressure] in Arterial blood 145 mmHg 95-100 H [facility] Oxygen saturation in Arterial blood 99 % 94-100 [facility] Base excess in Arterial blood by calculation 6 [facility] Carbon dioxide, total [Moles/volume] in Arterial blood 32 mmol/L [facility] Oxygen/Inspired gas setting [Volume Fraction] Ventilator [facility] ID Date Data Source [id number] 08/11/2021 08:24:10 AM [facility] Value Range Interpretation Code Description Data Izabela rce(s) Supporting Document(s) Glucose [Mass/volume] in Capillary blood by Glucometer 103 mg/dL 70- 140 [facility] ID Date Data Source [id number] 08/11/2021 07:48:12 AM [facility] Value Range Interpretation Code Description Data Izabela rce(s) Supporting Document(s) EKG [facility] ITGLTt7gBiCJYsDfk9FjBoKtKBZcGD0ktny7Y0N4eUNxA1MzjRXtj0scP4HfR0NhRKMdGTLEBI1DeXJn jb2 [file] 523wp+xgmp75R/d83YRd6ampx/fPfudy/hcjuh55sP b16+zcVN01fxptn03y7c29+8//D24+8+e/P+64xxwRvi6eG+m+8+ol695zQ8b9t679j/2neARmSH3hyR i9kamml4Rralz8250+Jm14dGx/0o02aok9w73tNo3o506kx7t3+/+rU3e7pHcd19/+brVx+/e//m5fs3 726LfPfVq/cvr7/5+gcv5ks5Do/+i7zvf+4776/fvn n18DRP62/23kQar1zf3wv0811k8v+K+WYb0u9weu/p3u8ai0413/El7117+nqX144+8+ov9zp5j10ofg rGF663/C+lV1D0p29+cruzevPqiw+PdO8+gIkr5ojr882++fjyL6++l3L9K6gbRtYQ46AkANh+74388/ b5530seioz+p8+vLz6/cRhc2181cc1/0EtL0rczN0/ 6Zd//+nPP//4h5d/+8+X73/64x9/+Austin/zhj//w8sUPv/z04x9f/vXvyvrXv3/50y8v+9e1/lrf/vy8 r8+v/zCk9211I0mlJspX/Pzzr//YUtpwyM7MB/3z99C3+8eX0wK53l+DGoB56z5/aB9xOaeaJco9udoA 78YbywEejve25xfwO+za9SiKn/JdnLdzikb0R8h/47 //+LTOeh4SE94+/O7NFy+ycoo45s3GH6wGexVyb+22ysj1SZTegkuo7U/5lhZW/zipLFejifrT5/D9j7 /89R9f/ccEQ248vf8qt/+y6e5h+6xvL5cmoe/ff/y0y9//fHP//tvam/ZhzGfs7/BVOpm/T T30P3z+w8vf/iPR91/+eQle3ibNgu+fg3fOWu//vjr f/77a31keGSrKhUn4o/4/zX9QcO4XNfB+qLzGspRlze8zem0amuM2ooQ3b/28eWH//PjX/96qavdyt0H /tt8G268H0S8eBlI+PCff/7Xv//k6XgPX/748w9/fHrD+0n/+of/+P0Pf/nph18+yABvIc1etbu6/fmW +vXHf/vbtMeI7//0p58//1g/0Udzv/zH9l0F5tyX5a hNwa3/+OPv/+cvP/3+Ub3Pv/dke3e68/ir+FAFF16BKcH6/i9/ggN3L7y++qmPu1ctKl5b6jnt4+Pwh8 85BNz/of//R+6TN20PSvW++8P/+YMjxIdr01/4po2Y/IwVH+2eea59S926mBBe7hza3SQ+3DSrX678a/ nN+y/movie 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/6RYgB4f731bCd03429+8xlQrfgqqZuR7n /M91m7ySHqPsTFQ5ukFomWuatmVsCehDLLnvQFWhEiw4HS6TdRHgSMPjM4T9LVFkxp1xZSLpFQCjjVEr CcIuCCAFOF2CtBBsNO9IFPf2TIKwRSMzTyZxQNMfxaU6OTObVLTgDPJgB2GzqsIurTWcHJGxCo6+ZW5k n1EcEvQuOCXiFgq0VH7YiBEzJK4KhOKwfG8qytXsU5 45feItCOIcIzdwl4HpMJszFJTWBF4CQKE6MUD3CBRpJc8+CR4xu6JkHuXjXDJaJgr1IG3UzQDqk5OcMT 3ZM2DaFNHjTVASPYU3a2YmKFFnjgpssbmvG3FgXVT9aX7tJDB8SZAjWEssIVEnBNgzEnT1BXisYOrqUD AlNTOgIZZjKZGiHEc9kGHkFY5PN6OuYUKbQXTEYOIr oyCtRw3xSAOXQRMCQcivFNDNVhoBKKByZhh9YYOiZcdcB3N4ZgfmU3VdRM1VT5LfLKQxEGJWJJXnjfIo SM0QlcEcuK5pJIkCHJUDUNcQEQquIoF1o83bnsVCOFSgGVYjIEmuEPOwEAAmLXKkMGCwSOVrOTLxNRHv LM9NB5MmUAHcQGVGRXB7p7IqBAWhhpbzpjpoEq1ajs RvYmo+EtqlZLAwb9NiDLeyR2T2wVKuU2WsF6VxLR6AmMDrPWntDCRiCBSmYTYuS878qvQsPB0+ZW5kb2 RpRmwxIBKZIGGcGYRrUDTtQSJ7EiGoFUShDBKoALGzLgO7TjTrGnROYRTxRHV2CaJ1KnLvKUHtKRDvCP puSBWuJMhaLRM4MPAmTCUkTA3rIfSvPVSaVoOyGPDk AWQxJHQeilJLSEPqVYPvRNFeDWW7HDXrTTPePVquIZWkYHBcFQQ4NPTkJRIbXR0xCnZaSJWbULDvFcav NEPeMGEstoIZINZgSIDuRIC1CmKeKCQvFRKrILfpHKJkUGKrZnz7HJPdIKVnPQ9oPjCqOHSfSBS3WMwi MDAwMDAgbiAKMDAwMDAwMDUyMyAwMDAwMCBuIAowMD TbTRSfPbYkTCXuLXFvGB0bXcWpJAFdNJY8UBFpNSNkTOXuniAFAXAyMRQgKZo0NZBgHHDyCJMoPTscIV DlUBSiVNN2OPXmXRLwJR9bDpXeZSGpLHXcORUgCRSfSOKbgoBIQQJuEONiWMT4EKTvZUVnMRNrSCufWL LaYOZcPzv1JHNhYDQuPT3vJsJqCIEkCJL4GGDiOPUq OLQjdgYTZKAzUZN7CVbgECClZCXvJTGeLHwlHTNoQLTyNyE7VFBjEPNxOS8rNuHhTYWuZUP9TgJdXPBz URQzziCSAOYrTIBcZJR0TzCeSHRcBHFeJVsxTASpDLIbRBAbDUM3MBG9LCOpAiMaSVotTNQARBtYX2Ag qmKkByJGO3qnZb5qSgGsQOTCE8Fze8RuKSUtEYEJLf3+JfE7CHM3rOTbOgg6XoGeQVuyOTRCAz== ID Date Data Source [id number] 08/11/2021 03:20:02 AM EDT [facility] Name Value Range Interpretation Code Description Data Izabela rce(s) Supporting Document(s) Glucose [Mass/volume] in Capillary blood by Glucometer 143 mg/dL 70- 140 H [facility] ID Date Data Source [id number] 08/10/2021 11:40:37 PM EDT [facility] Name Value Range Interpretation Code Description Data Izabela rce(s) Supporting Document(s) Glucose [Mass/volume] in Capillary blood by Glucometer 180 mg/dL 70- 140 H [facility] ID Date Data Source [id number] 08/10/2021 02:43:08 PM EDT [facility] Service Cmnt XXX-Imp : NoneMicroorganism XXX Cult : Polymerase chain reaction assay was POSITIVE for methicillin-SUSCEPTIBLE Staphylococcus aureus (MSSA) AND NEGATIVE for methicillin resistant Staphylococcus aureus (MRSA). Name Value Range Interpretation Code Description Data Izabela rce(s) Supporting Document(s) ID Date Data Source [id number] 08/11/2021 07:17:06 AM EDT [facility] Cmnt XXX-Imp : NoneMicroorganism XXX Cult : 7,000 col/mlIndigenous microorganisms. Name Value Range Interpretation Code Description Data Izabela rce(s) Supporting Document(s) ID Date Data Source [id number] [facility] : R ACMicroorganism XXX Cult : No growth 5 days Name Value Range Interpretation Code Description Data Izabela rce(s) Supporting Document(s) ID Date Data Source [id number] 08/15/2021 11:37:40 AM [facility] Cmnt XXX-Imp : L ACMicroorganism XXX Cult : No growth 5 days Name Value Range Interpretation Code Description Data Izabela rce(s) Supporting Document(s) ID Date Data Source [id number] 08/10/2021 11:43:43 AM [facility] Name Value Range Interpretation Code Description Data Izabela rce(s) Supporting Document(s) Magnesium [Mass/volume] in Serum or Plasma 1.8 mg/dL 1.6-2.4 [facility] QA FLAGS AND/OR RANGES MODIFIED BY DEMOG RAPHIC UPDATE ON 08/10 AT 2233 ID Date Data Source [id number] 08/15/2021 11:37:40 AM [facility] Cmnt XXX-Imp : R WRISTMicroorgan ism XXX Cult : No growth 5 days Name Value Range Interpretation Code Description Data Izabela rce(s) Supporting Document(s) ID Date Data Source [id number] 08/11/2021 10:16:29 AM [facility] Cmnt XXX-Imp : NoneMicroorganism XXX Cult : NO Methicillin resistant Staphylococcus aureus isolated Name Value Range Interpretation Code Description Data Izabela rce(s) Supporting Document(s) ID Date Data Source [id number] 08/09/2021 10:01:19 PM [facility] Name Value Range Interpretation Code Description Data Izabela rce(s) Supporting Document(s) Bicarbonate [Moles/volume] in Serum 32 mmol/L 22-29 H [facility] Chloride [Moles/volume] in Serum or Plasma 100 mmol/L 98-107 [facility] Creatinine [Mass/volume] in Serum or Plasma 0.73 mg/dL 0.50-0.90 [facility] Glucose [Mass/volume] in Serum or Plasma 230 mg/dL 70-140 H [facility] Potassium [Moles/volume] in Serum or Plasma 5.1 mmol/L 3.4-5.1 [facility] Sodium [Moles/volume] in Serum or Plasma 139 mmol/L 136-145 [facility] Urea nitrogen [Mass/volume] in Serum or Plasma 24 mg/dL 8-23 H [facility] Anion gap 3 in Serum or Plasma 7 mmol/L 8-15 L [facility] Osmolality of Serum or Plasma by calculation 299 mosm/kg 275-300 [facility] Creatinine/Urea nitrogen [Mass Ratio] in Serum or Plasma 33 [facility] Calcium [Mass/volume] in Serum or Plasma 8.5 mg/dL 8.8-10.2 L [facility] QA FLAGS AND/OR RANGES MODIFIED BY EthicsGameIC UPDATE ON 08/10 AT 2233 Glomerular filtration rate/1.73 sq M pre dicted among non-blacks [Volume Rate/Area] in Serum or Plasma by Creatinine-based formula (MDRD) >6 0 [facility] Glomerular filtration rate/1.73 sq M pre dicted among blacks [Volume Rate/Area] in Serum or Plasma by Creatinine-based formula (MDRD) >60 [facility] ID Date Data Source [id number] 08/09/2021 10:01:19 PM EDT [facility] Name Value Range Interpretation Code Description Data Izabela rce(s) Supporting Document(s) Magnesium [Mass/volume] in Serum or Plasma 2.0 mg/dL 1.6-2.4 [facility] QA FLAGS AND/OR RANGES MODIFIED BY [employer] UPDATE ON 08/10 AT 2233 ID Date Data Source [id number] 07/28/2021 11:06:00 PM EDT [facility] Name Value Range Interpretation Code Description Data Izabela rce(s) Supporting Document(s) SARS coronavirus 2 RNA [Presence] in Res piratory specimen by MAXIMILIAN with probe detection NEGATIVE [facility] This lab was ordered by [facility] a nd reported by [facility]. ID Date Data Source [id number] 05/31/2021 11:51:00 AM EDT [facility] ([facility] Name Value Range Interpretation Code Description Data Izabela rce(s) Supporting Document(s) CK-MB Value Mass 3.1 ng/mL Normal (applies to non-numeric results) [facility] ([facility] CPK Creatine Phosphokinase 37 U/L 26-192 Samantha l (applies to non-numeric results) [facility] ([facility] ) MB/CK Relative Index 8.38 Above high normal [facility] ([facility] <content>DIAGNOSIS CRITERIA</content>
<content>MMB ng/ml Relative Index (RI)</content>
<content>NON-AMI < or = 5 N/A</content>
<content>ALANIS ZONE > 5 < or = 4</content>
<content>AMI > 5 > 4</content>
<content></content> Troponin I 0.11 ng/mL Above high normal [facility] ([facility] <content>Troponin I Reference Interval f or Siemens [place] LOCI:</content>
<content></content>
<content>99th Percentile= 0.00-0.045 ng/ml</content>
<content></content>
<content>Risk Stratification:</content>
<content><= 0.10 ng/ml Decreased Risk for Adverse Clinical</content>
<content>Events.</content>
<content>0.10-1.50 ng/ml Increased Risk for Adverse Clinical</content>
<content>Events. Evaluation of additional</content>
<content>criterion and/or repeat testing in 2-6</content>
<content>hours is suggested to rule out myocardial</content>
<content>damage.</content>
<content>>= 1.50 ng/ml Indicative of Myocardial Injury.</content>
<content></content> ID Date Data Source [id number] 05/31/2021 09:48:00 AM EDT [facility] ([facility] Name Value Range Interpretation Code Description Data Izabela rce(s) Supporting Document(s) Prothrombin Time 13.9 s 12.5-14.3 Normal (applies to non-numeric results) [facility] ([facility] Partial Thromboplastin Time 30.9 s 24.2-38.5 Norm al (applies to non-numeric results) [facility] ([facility] ) Inr 1.05 Normal (applies to non-numeric resul ts) [facility] ([facility] THERAPUTIC HUMAN INR VALUES INDICATIONS NORMAL RANGES PROPHYLAXIS/TREATMENT OF: VENOUS THROMBOSIS 2.0-3.0 PULMONARY EMBOLISM 2.0-3.0 PREVENTION OF SYSTEMIC EMBOLISM FROM: TISSUE HEART VALVES 2.0-3.0 ACUTE MYOCARDIAL INFARCTION 2.0-3.0 VALVULAR HEART DISEASE 2.0-3.0 ATRIAL FIBRILLATION 2.0-3.0 MECHANICAL VALVES(HIGH RISK) 2.5-3.5 RECURRENT MYOCARDIAL INFARCTION 2.5-3.5 ID Date Data Source [id number] 05/31/2021 09:17:00 AM EDT [facility] Name Value Range Interpretation Code Description Data Izabela rce(s) Supporting Document(s) SARS-CoV-2 (COVID 19) NEGATIVE - SARS-CoV-2 (COVID19) [facility] This lab was ordered by [facility] a nd reported by [facility]. ID Date Data Source [id number] 05/31/2021 09:17:00 AM EDT [facility] ([facility] Name Value Range Interpretation Code Description Data Izabela rce(s) Supporting Document(s) Venous Partial Pressure Co2 64.5 mmHg 38.0-50.0 Above high normal [facility] ([facility] Venous PH 7.341 units 7.330-7.430 Normal (applies to non-numeric res ults) [facility] ([facility] Venous Partial Pressure O2 40.2 mmHg 30.0-50.0 Samantha l (applies to non-numeric results) [facility] ([facility] ) Venous Total Co2 36.1 meq/L 24.0-28.0 Above high normal M [facility] ([facility] Venous Hco3 34.1 meq/L 23.0-27.0 Above high normal [facility] ([facility] Venous Base Excess 6.5 Above high normal [facility] ([facility] Venous Standard Hco3 29.8 meq/L Normal (applies to non-num yassine results) [facility] ([facility] Venous O2 Saturation 72.6 % 60.0-80.0 Normal (applies to non-num yassine results) [facility] ([facility] ID Date Data Source [id number] 05/31/2021 09:17:00 AM EDT [facility] ([facility] Name Value Range Interpretation Code Description Data Izabela rce(s) Supporting Document(s) White Blood Count 15.7 10 4.0-10.0 Above high normal [facility] ([facility] Red Blood Count 4.27 10 4.00-5.40 Normal (applies to non-numeric results) [facility] ([facility] Hemoglobin 11.5 g/dL 12.0-15.5 Below low normal [facility] ( [facility] Mean Corpuscular Volume 93.2 fl 80.0-96.0 Normal ( applies to non-numeric results) [facility] ([facility] ) Hematocrit 39.8 % 36.0-47.0 Normal (applies to non-numeric resul ts) [facility] ([facility] Red Cell Distribution Width 13.5 % 11.5-14.5 Norm al (applies to non-numeric results) [facility] ([facility] ) Mean Corpuscular HGB Conc 28.9 g/dL 32.0-36.5 Below low normal [facility] ([facility] Mean Corpuscular Hemoglobin 26.9 pg 27.0-33.0 Below low normal [facility] ([facility] Neutrophils % 76.8 % 36.0-66.0 Above high normal [facility] NT ([facility] Platelet Count, Automated 368 10 150-450 Normal (applies to non-numeric results) [facility] ([facility] ) [place] % 7.9 % 2.0-8.0 Normal (applies to non-numeric resul ts) [facility] ([facility] Lymph % 12.6 % 24.0-44.0 Below low normal [facility] ( [facility] Baso % 0.6 % 0.0-1.0 Normal (applies to non-numeric resul ts) [facility] ([facility] Eos % 1.7 % 0.0-3.0 Normal (applies to non-numeric resul ts) [facility] ([facility] Nucleated Red Blood Cell % 0.0 % 0-0 Normal (applies to n on-numeric results) [facility] ([facility] Immature Granulocyte % 0.4 % 0-3.0 Normal (applies to non-n umeric results) [facility] ([facility] Neutrophils # 12.0 10 1.5-8.5 Above high normal [facility] NT ([facility] [place] # 1.2 10 0.0-0.8 Above high normal [facility] ([facility] Lymph # 2.0 10 1.5-5.0 Normal (applies to non-numeric resul ts) [facility] ([facility] Baso # 0.1 10 0.0-0.2 Normal (applies to non-numeric resul ts) [facility] ([facility] Eos # 0.3 10 0.0-0.5 Normal (applies to non-numeric resul ts) [facility] ([facility] ID Date Data Source [id number] 05/31/2021 09:17:00 AM EDT [facility] ([facility] Name Value Range Interpretation Code Description Data Izabela rce(s) Supporting Document(s) CK-MB Value Mass 2.0 ng/mL Normal (applies to non-numeric results) [facility] ([facility] CPK Creatine Phosphokinase 40 U/L 26-192 Samantha l (applies to non-numeric results) [facility] ([facility] [facility] ) MB/CK Relative Index 5.00 Above high normal [facility] ([facility] <content>DIAGNOSIS CRITERIA</content>
<content>MMB ng/ml Relative Index (RI)</content>
<content>NON-AMI < or = 5 N/A</content>
<content>ALANIS ZONE > 5 < or = 4</content>
<content>AMI > 5 > 4</content>
<content></content> Troponin I 0.13 ng/mL Above high normal [facility] ([facility] <content>Troponin I Reference Interval f or Siemens [place] LOCI:</content>
<content></content>
<content>99th Percentile= 0.00-0.045 ng/ml</content>
<content></content>
<content>Risk Stratification:</content>
<content><= 0.10 ng/ml Decreased Risk for Adverse Clinical</content>
<content>Events.</content>
<content>0.10-1.50 ng/ml Increased Risk for Adverse Clinical</content>
<content>Events. Evaluation of additional</content>
<content>criterion and/or repeat testing in 2-6</content>
<content>hours is suggested to rule out myocardial</content>
<content>damage.</content>
<content>>= 1.50 ng/ml Indicative of Myocardial Injury.</content>
<content></content> ID Date Data Source [id number] 05/31/2021 09:17:00 AM EDT [facility] ([facility] Name Value Range Interpretation Code Description Data Izabela rce(s) Supporting Document(s) Ast/Sgot 8 U/L 7-37 Normal (applies to non-numeric resul ts) [facility] ([facility] Alt/SGPT 19 U/L 12-78 Normal (applies to non-numeric resul ts) [facility] ([facility] Alkaline Phosphatase 55 U/L 45-117 Normal (applies to non-num yassine results) [facility] Bilirubin,Total 0.4 mg/dL 0.2-1.0 Normal (applies to non-numeric results) [facility] ([facility] Total Protein 6.2 GM/DL 6.4-8.2 Below low normal MEDEN T ([facility] Bilirubin,Direct 0.1 mg/dL 0.0-0.2 Normal (applies to non-numeric results) [facility] ([facility] Albumin/Globulin Ratio 1.1 1.2-2.2 Below low normal [facility] ([facility] Albumin 3.3 GM/DL 3.2-5.2 Normal (applies to non-numeric resul ts) [facility] ([facility] ID Date Data Source [id number] 05/31/2021 09:17:00 AM EDT [facility] ([facility] Name Value Range Interpretation Code Description Data Izabela rce(s) Supporting Document(s) Glucose, Fasting 127 mg/dL 70-100 Above high normal M EDENT ([facility] Blood Urea Nitrogen 32 mg/dL 7-18 Above high normal [facility] ([facility] Creatinine For GFR 0.84 mg/dL 0.55-1.30 Normal (applies to non -numeric results) [facility] ([facility] Glomerular Filtration Rate Laboratory test result Normal (applies to non- numeric results) [facility] ) <content>Units are mL/min/1.73 m2</content>
<content></content>
<content>Chronic Kidney Disease Staging per NKF:</content>
<content></content>
<content>Stage I & II GFR >=60 Normal to Mildly Decreased</content>
<content>Stage III GFR 30- 59 Moderately Decreased</content>
<content>Stage IV GFR 15-29 Severely Decreased</content>
<content>Stage V GFR <15 Very Little GFR Left</content>
<content>ESRD GFR <15 on SIDE BOSS</content>
<content></content> Sodium Level 144 meq/L 136-145 Normal (applies to non-numeric res ults) [facility] ([facility] Chloride Level 106 meq/L 98-107 Normal (applies to non-numeric r esults) [facility] ([facility] Potassium Serum 4.4 meq/L 3.5-5.1 Normal (applies to non-numeric results) [facility] ([facility] Anion Gap 6 meq/L 8-16 Below low normal [facility] ( [facility] Calcium Level 9.1 mg/dL 8.8-10.2 Normal (applies to non-numeric re sults) [facility] ([facility] Carbon Dioxide Level 32 meq/L 21-32 Normal (applies to non-num yassine results) [facility] ([facility] ID Date Data Source [id number] 05/31/2021 09:17:00 AM EDT [facility] ([facility] Name Value Range Interpretation Code Description Data Izabela rce(s) Supporting Document(s) Natriuretic peptide.B prohormone N-Terminal [Mass/volu me] in Serum or Plasma 1363 pg/mL Above high normal [facility] ([facility] Thyrotropin [Units/volume] in Serum or Plasma 2.010 uIU/ML 0. 358-3.740 Normal (applies to non-numeric results) [facility] ([facility] ID Date Data Source [id number] 05/31/2021 09:17:00 AM EDT [facility] ([facility] Name Value Range Interpretation Code Description Data Izabela rce(s) Supporting Document(s) Respiratory Panel Laboratory test result [facility] ([facility] This respiratory PCR panel detects Influ [...] - SARS-CoV-2 (COVID19) ID Date Data Source [id number] 05/19/2021 01:52:00 PM EDT [facility] ([facility] Name Value Range Interpretation Code Description Data Izabela rce(s) Supporting Document(s) Hemoglobin A1c/Hemoglobin.total in Blood 8.3 % 4.50-6.20 Above high normal [facility] ([facility] ID Date Data Source [id number] 05/19/2021 01:52:00 PM EDT [facility] ([facility] Name Value Range Interpretation Code Description Data Izabela rce(s) Supporting Document(s) WBC 9.2 10E3/uL 4.1-10.9 [facility] ([facility] NORMAL RANGES Age WBC [...] RBC 3.91 10E6/uL 4.20-6.30 Below low normal [facility] ([facility] NORMAL RANGES Age [...] HCT IS 5% LESS SOURCE FOR DATA: [employer] 1800 OPERATION MANUAL( AUTOMATED BLOOD COUNTS AND [...] HGB 10.4 g/dL 12.0-18.0 Below low normal [facility] ( [...] HCT IS 5% LESS SOURCE FOR DATA: [employer] 1800 OPERATION MANUAL( AUTOMATED BLOOD COUNTS AND [...] HCT 36.2 % 37.0-51.0 Below low normal [facility] ( [facility] NORMAL RANGES [...] HCT IS 5% LESS SOURCE FOR DATA: [employer] 1800 OPERATION MANUAL( AUTOMATED BLOOD COUNTS AND [...] 2-19 YEARS EXCLUSIVE. MCV 92.6 fL 80.0-97.0 [facility] ([facility] NORMAL [...] HCT IS 5% LESS SOURCE FOR DATA: [employer] 1800 OPERATION MANUAL( AUTOMATED BLOOD COUNTS AND [...] 2-19 YEARS EXCLUSIVE. MCH 26.6 pg 26.0-32.0 [facility] ([facility] NORMAL [...] HCT IS 5% LESS SOURCE FOR DATA: [employer] 1800 OPERATION MANUAL( AUTOMATED BLOOD COUNTS AND [...] MCHC 28.7 g/dL 31.0-36.0 Below low normal [facility] ( [...] HCT IS 5% LESS SOURCE FOR DATA: [employer] 1800 OPERATION MANUAL( AUTOMATED BLOOD COUNTS [...] 2-19 YEARS EXCLUSIVE. PLT 309 10E3/uL 140-440 [facility] ([facility] NORMAL RANGES Age WBC [...] HCT IS 5% LESS SOURCE FOR DATA: [employer] 1800 OPERATION MANUAL( AUTOMATED BLOOD COUNTS AND [...] 2-19 YEARS EXCLUSIVE. RDW-CV 13.1 % 11.5-14.5 [facility] NORMAL RANGES Age WBC [...] HCT IS 5% LESS SOURCE FOR DATA: [employer] 1800 OPERATION MANUAL( AUTOMATED BLOOD COUNTS AND [...] HCT IS 5% LESS SOURCE FOR DATA: [employer] 1800 OPERATION MANUAL( AUTOMATED BLOOD COUNTS AND [...] YEARS EXCLUSIVE. Neut% 91.6 % 37.0-92.0 [facility] ([facility] [...] HCT IS 5% LESS SOURCE FOR DATA: [employer] 1800 OPERATION MANUAL( AUTOMATED BLOOD COUNTS [...] HCT IS 5% LESS SOURCE FOR DATA: [employer] 1800 OPERATION MANUAL( AUTOMATED BLOOD COUNTS AND [...] 2-19 YEARS EXCLUSIVE. Lym# 0.6 10E3/uL 0.6-4.1 [facility] ([facility] NORMAL RANGES Age WBC [...] HCT IS 5% LESS SOURCE FOR DATA: [employer] 1800 OPERATION MANUAL( AUTOMATED BLOOD COUNTS AND [...] Neut# 8.4 % 2.0-7.8 Above high normal [facility] ([facility] [...] HCT IS 5% LESS SOURCE FOR DATA: [employer] 1800 OPERATION MANUAL( AUTOMATED BLOOD COUNTS AND [...] 2-19 YEARS EXCLUSIVE. MXD# 0.2 10E3/uL 0.0-1.8 [facility] ([facility] NORMAL RANGES Age WBC [...] HCT IS 5% LESS SOURCE FOR DATA: [employer] 1800 OPERATION MANUAL( AUTOMATED BLOOD COUNTS AND [...] 2-19 YEARS EXCLUSIVE. MPV 11.4 fL 9.0-13.0 [facility] ([facility] NORMAL [...] HCT IS 5% LESS SOURCE FOR DATA: [employer] 1800 OPERATION MANUAL( AUTOMATED BLOOD COUNTS AND [...] 2-19 YEARS EXCLUSIVE. ID Date Data Source [id number] 05/19/2021 01:52:00 PM EDT [facility] ([facility] Name Value Range Interpretation Code Description Data Izabela rce(s) Supporting Document(s) Chol 197 mg/dL 0-200 [facility] ([facility] NORMAL [...] HCT IS 5% LESS SOURCE FOR DATA: [employer] 1800 OPERATION MANUAL( AUTOMATED BLOOD COUNTS AND [...] REPRESENTS INDIVIDUALA AGED 2-19 YEARS EXCLUSIVE. Trig 122 mg/dL 40-200 [facility] ([facility] NORMAL RANGES [...] HCT IS 5% LESS SOURCE FOR DATA: [employer] 1800 OPERATION MANUAL( AUTOMATED BLOOD COUNTS [...] HCT IS 5% LESS SOURCE FOR DATA: [employer] 1800 OPERATION MANUAL( AUTOMATED BLOOD COUNTS AND [...] 2-19 YEARS EXCLUSIVE. LDL_C 101 Calc 75-129 [facility] ([facility] NORMAL RANGES [...] HCT IS 5% LESS SOURCE FOR DATA: [employer] 1800 OPERATION MANUAL( AUTOMATED BLOOD COUNTS AND [...] 2-19 YEARS EXCLUSIVE. Cho/HDL Ratio 2.8 CALC [employer] ([facility] NORMAL RANGES Age WBC RBC HGB [...] HCT IS 5% LESS SOURCE FOR DATA: [employer] 1800 OPERATION MANUAL( AUTOMATED BLOOD COUNTS AND [...] 2-19 YEARS EXCLUSIVE. ID Date Data Source [id number] 05/19/2021 01:52:00 PM EDT [facility] ([facility] Name Value Range Interpretation Code Description Data Izabela rce(s) Supporting Document(s) Glu 328 mg/dL 70-110 Above high normal [facility] ([facility] [...] HCT IS 5% LESS SOURCE FOR DATA: [employer] 1800 OPERATION MANUAL( AUTOMATED BLOOD COUNTS AND [...] BUN 29 mg/dL 8-23 Above high normal [facility] ([facility] NORMAL RANGES Age [...] HCT IS 5% LESS SOURCE FOR DATA: [employer] 1800 OPERATION MANUAL( AUTOMATED BLOOD COUNTS AND [...] 2-19 YEARS EXCLUSIVE. Creat 0.9 mg/dL 0.5-1.0 [facility] ([facility] NORMAL RANGES [...] HCT IS 5% LESS SOURCE FOR DATA: [employer] 1800 OPERATION MANUAL( AUTOMATED BLOOD COUNTS AND [...] 2-19 YEARS EXCLUSIVE. BUN/Creatinine Ratio 31.6 CALC [facility] ([facility] NORMAL RANGES Age [...] HCT IS 5% LESS SOURCE FOR DATA: [employer] 1800 OPERATION MANUAL( AUTOMATED BLOOD COUNTS AND [...] 2-19 YEARS EXCLUSIVE. Na 136 mmol/L 136-145 [facility] ([facility] NORMAL RANGES Age WBC RBC [...] HCT IS 5% LESS SOURCE FOR DATA: [employer] 1800 OPERATION MANUAL( AUTOMATED BLOOD COUNTS AND [...] 2-19 YEARS EXCLUSIVE. K 4.8 mmol/L 3.5-5.1 [facility] ([facility] NORMAL RANGES [...] HCT IS 5% LESS SOURCE FOR DATA: [employer] 1800 OPERATION MANUAL( AUTOMATED BLOOD COUNTS AND [...] HCT IS 5% LESS SOURCE FOR DATA: [employer] 1800 OPERATION MANUAL( AUTOMATED BLOOD COUNTS AND [...] 2-19 YEARS EXCLUSIVE. CA 9.0 mg/dL 8.6-10.2 [facility] ([facility] NORMAL RANGES [...] HCT IS 5% LESS SOURCE FOR DATA: [employer] 1800 OPERATION MANUAL( AUTOMATED BLOOD COUNTS [...] HCT IS 5% LESS SOURCE FOR DATA: [employer] 1800 OPERATION MANUAL( AUTOMATED BLOOD COUNTS AND [...] HCT IS 5% LESS SOURCE FOR DATA: [employer] 1800 OPERATION MANUAL( AUTOMATED BLOOD COUNTS [...] 2-19 YEARS EXCLUSIVE. Alb 4.1 g/dL 3.4-4.8 [facility] ([facility] NORMAL RANGES [...] HCT IS 5% LESS SOURCE FOR DATA: [employer] 1800 OPERATION MANUAL( AUTOMATED BLOOD COUNTS [...] 2-19 YEARS EXCLUSIVE. A/G Ratio 2.7 CALC [facility] ([facility] NORMAL RANGES [...] HCT IS 5% LESS SOURCE FOR DATA: [employer] 1800 OPERATION MANUAL( AUTOMATED BLOOD COUNTS AND [...] HCT IS 5% LESS SOURCE FOR DATA: [employer] 1800 OPERATION MANUAL( AUTOMATED BLOOD COUNTS AND [...] 2-19 YEARS EXCLUSIVE. Alp 56.5 U/L 35-129 [facility] ([facility], [...] HCT IS 5% LESS SOURCE FOR DATA: [employer] 1800 OPERATION MANUAL( AUTOMATED BLOOD COUNTS AND [...] EXCLUSIVE. Ast (Sgot) 10 U/L 0-40 [facility] ([facility] NORMAL [...] HCT IS 5% LESS SOURCE FOR DATA: [employer] 1800 OPERATION MANUAL( AUTOMATED BLOOD COUNTS AND [...] YEARS EXCLUSIVE. Alt (SGPT) 12 U/L 0-41 [facility] ([facility] NORMAL RANGES Age WBC RBC HGB [...] HCT IS 5% LESS SOURCE FOR DATA: [employer] 1800 OPERATION MANUAL( AUTOMATED BLOOD COUNTS AND [...] 2-19 YEARS EXCLUSIVE. Tbili 0.26 mg/dL 0.0-1.2 [facility] ([facility] NORMAL RANGES Age WBC [...] HCT IS 5% LESS SOURCE FOR DATA: [employer] 1800 OPERATION MANUAL( AUTOMATED BLOOD COUNTS AND [...] 2-19 YEARS EXCLUSIVE. Anion Gap 16 mmol/L [facility] ([facility] [...] HCT IS 5% LESS SOURCE FOR DATA: [employer] 1800 OPERATION MANUAL( AUTOMATED BLOOD COUNTS AND [...] YEARS EXCLUSIVE. Osmolality-Calculated 290.8 CALC [facility] E[facility] ([facility] [...] HCT IS 5% LESS SOURCE FOR DATA: [employer] 1800 OPERATION MANUAL( AUTOMATED BLOOD COUNTS AND [...] [facility] CKD-EPI eGFR Non-Afr. Afghan 61 # [facility] ([facility] CKD-EPI ID Date Data Source [id number] 02/15/2021 02:33:00 PM EDT [facility] ([facility] Name Value Range [...] HCT IS 5% LESS SOURCE FOR DATA: [employer] 1800 OPERATION MANUAL( AUTOMATED BLOOD COUNTS AND [...] 2-19 YEARS EXCLUSIVE. ID Date Data Source [id number] 02/15/2021 02:33:00 PM EDT [facility] ([facility] Name Value Range Interpretation Code Description Data Izabela rce(s) Supporting Document(s) WBC 10.1 10E3/uL 4.1-10.9 [facility] ([facility] NORMAL RANGES [...] HCT IS 5% LESS SOURCE FOR DATA: [employer] 1800 OPERATION MANUAL( AUTOMATED BLOOD COUNTS AND [...] RBC 4.17 10E6/uL 4.20-6.30 Below low normal [facility] ([facility] NORMAL RANGES Age [...] HCT IS 5% LESS SOURCE FOR DATA: [employer] 1800 OPERATION MANUAL( AUTOMATED BLOOD COUNTS AND [...] HCT IS 5% LESS SOURCE FOR DATA: [employer] 1800 OPERATION MANUAL( AUTOMATED BLOOD COUNTS AND [...] 2-19 YEARS EXCLUSIVE. MCV 91.6 fL 80.0-97.0 [facility] ([facility] NORMAL [...] HCT IS 5% LESS SOURCE FOR DATA: [employer] 1800 OPERATION MANUAL( AUTOMATED BLOOD COUNTS AND [...] 2-19 YEARS EXCLUSIVE. HCT 38.2 % 37.0-51.0 [facility] ([facility] NORMAL RANGES [...] HCT IS 5% LESS SOURCE FOR DATA: [employer] 1800 OPERATION MANUAL( AUTOMATED BLOOD COUNTS AND [...] HCT IS 5% LESS SOURCE FOR DATA: [employer] 1800 OPERATION MANUAL( AUTOMATED BLOOD COUNTS AND [...] 2-19 YEARS EXCLUSIVE. MCH 26.4 pg 26.0-32.0 [facility] ([facility] NORMAL [...] 2-19 YEARS EXCLUSIVE. PLT 308 10E3/uL 140-440 [facility] ([facility] NORMAL RANGES Age WBC [...] HCT IS 5% LESS SOURCE FOR DATA: [employer] 1800 OPERATION MANUAL( AUTOMATED BLOOD COUNTS AND [...] HCT IS 5% LESS SOURCE FOR DATA: [employer] 1800 OPERATION MANUAL( AUTOMATED BLOOD COUNTS AND [...] Lym% 9.5 % 10.0-58.5 Below low normal [facility] ( [...] HCT IS 5% LESS SOURCE FOR DATA: [employer] 1800 OPERATION MANUAL( AUTOMATED BLOOD COUNTS AND [...] 2-19 YEARS EXCLUSIVE. MXD% 9.6 % 0.1-24.0 [facility] ([facility] NORMAL RANGES [...] HCT IS 5% LESS SOURCE FOR DATA: [employer] 1800 OPERATION MANUAL( AUTOMATED BLOOD COUNTS AND [...] Neut% 80.9 % 37.0-92.0 [facility] ([facility] NORMAL RANGES Age WBC [...] HCT IS 5% LESS SOURCE FOR DATA: [employer] 1800 OPERATION MANUAL( AUTOMATED BLOOD COUNTS AND [...] 2-19 YEARS EXCLUSIVE. Lym# 1.0 10E3/uL 0.6-4.1 [employer] [facility] NORMAL RANGES Age WBC RBC HGB [...] HCT IS 5% LESS SOURCE FOR DATA: [employer] 1800 OPERATION MANUAL( AUTOMATED BLOOD COUNTS AND [...] HCT IS 5% LESS SOURCE FOR DATA: [employer] 1800 OPERATION MANUAL( AUTOMATED BLOOD COUNTS AND [...] 2-19 YEARS EXCLUSIVE. MXD# 1.0 10E3/uL 0.0-1.8 [facility] NORMAL RANGES Age WBC [...] HCT IS 5% LESS SOURCE FOR DATA: [employer] 1800 OPERATION MANUAL( AUTOMATED BLOOD COUNTS AND [...] 2-19 YEARS EXCLUSIVE. MPV 11.2 fL 9.0-13.0 [facility] ([facility] NORMAL [...] HCT IS 5% LESS SOURCE FOR DATA: [employer] 1800 OPERATION MANUAL( AUTOMATED BLOOD COUNTS AND [...] 2-19 YEARS EXCLUSIVE. ID Date Data Source [id number] 02/15/2021 02:33:00 PM EDT [facility] ([facility] Name Value Range Interpretation Code Description Data Izabela rce(s) Supporting Document(s) Chol 216 mg/dL 0-200 Above high normal [facility] (Family [...] HCT IS 5% LESS SOURCE FOR DATA: [employer] 1800 OPERATION MANUAL( AUTOMATED BLOOD COUNTS AND [...] 2-19 YEARS EXCLUSIVE. Trig 165 mg/dL 40-200 [facility] ([facility] NORMAL RANGES [...] HCT IS 5% LESS SOURCE FOR DATA: [employer] 1800 OPERATION MANUAL( AUTOMATED BLOOD COUNTS AND [...] HCT IS 5% LESS SOURCE FOR DATA: [employer] 1800 OPERATION MANUAL( AUTOMATED BLOOD COUNTS AND [...] AGED 2-19 YEARS EXCLUSIVE. Cho/HDL Ratio 3.0 CALC [employer] ([facility] NORMAL RANGES Age WBC RBC [...] HCT IS 5% LESS SOURCE FOR DATA: [employer] 1800 OPERATION MANUAL( AUTOMATED BLOOD COUNTS [...] 2-19 YEARS EXCLUSIVE. ID Date Data Source [id number] 02/15/2021 02:33:00 PM EDT [facility] ([facility] Name Value Range Interpretation Code Description Data Izabela rce(s) Supporting Document(s) Glu 237 mg/dL 70-110 Above high normal [facility] ([facility] NORMAL RANGES Age [...] HCT IS 5% LESS SOURCE FOR DATA: [employer] 1800 OPERATION MANUAL( AUTOMATED BLOOD COUNTS AND [...] BUN 27 mg/dL 8-23 Above high normal [facility] ([facility] NORMAL RANGES Age [...] HCT IS 5% LESS SOURCE FOR DATA: [employer] 1800 OPERATION MANUAL( AUTOMATED BLOOD COUNTS AND [...] 2-19 YEARS EXCLUSIVE. BUN/Creatinine Ratio 32.8 CALC [facility] ([facility] NORMAL RANGES Age [...] HCT IS 5% LESS SOURCE FOR DATA: [employer] 1800 OPERATION MANUAL( AUTOMATED BLOOD COUNTS [...] HCT IS 5% LESS SOURCE FOR DATA: [employer] 1800 OPERATION MANUAL( AUTOMATED BLOOD COUNTS AND [...] 2-19 YEARS EXCLUSIVE. K 4.3 mmol/L 3.5-5.1 ANTHONY ([facility] NORMAL RANGES Age WBC RBC [...] HCT IS 5% LESS SOURCE FOR DATA: [employer] 1800 OPERATION MANUAL( AUTOMATED BLOOD COUNTS AND [...] 2-19 YEARS EXCLUSIVE. Na 139 mmol/L 136-145 [facility] ([facility] NORMAL RANGES [...] HCT IS 5% LESS SOURCE FOR DATA: [employer] 1800 OPERATION MANUAL( AUTOMATED BLOOD COUNTS AND [...] HCT IS 5% LESS SOURCE FOR DATA: [employer] 1800 OPERATION MANUAL( AUTOMATED BLOOD COUNTS AND [...] Co2 33.1 mmol/L 22.0-29.0 Above high normal [facility] ([facility] NORMAL RANGES Age [...] HCT IS 5% LESS SOURCE FOR DATA: [employer] 1800 OPERATION MANUAL( AUTOMATED BLOOD COUNTS AND [...] 2-19 YEARS EXCLUSIVE. CA 9.5 mg/dL 8.6-10.2 [facility] ([facility] NORMAL RANGES [...] HCT IS 5% LESS SOURCE FOR DATA: [employer] 1800 OPERATION MANUAL( AUTOMATED BLOOD COUNTS AND [...] HCT IS 5% LESS SOURCE FOR DATA: [employer] 1800 OPERATION MANUAL( AUTOMATED BLOOD COUNTS AND [...] 2-19 YEARS EXCLUSIVE. Alb 4.0 g/dL 3.4-4.8 [facility] ([facility] NORMAL RANGES [...] 2-19 YEARS EXCLUSIVE. A/G Ratio 2.3 CALC [facility] ([facility] [...] HCT IS 5% LESS SOURCE FOR DATA: [employer] 1800 OPERATION MANUAL( AUTOMATED BLOOD COUNTS AND [...] HCT IS 5% LESS SOURCE FOR DATA: [employer] 1800 OPERATION MANUAL( AUTOMATED BLOOD COUNTS AND [...] 2-19 YEARS EXCLUSIVE. Alp 61.9 U/L 35-129 [facility] ([facility] NORMAL RANGES [...] HCT IS 5% LESS SOURCE FOR DATA: [employer] 1800 OPERATION MANUAL( AUTOMATED BLOOD COUNTS [...] YEARS EXCLUSIVE. Ast (Sgot) 9 U/L 0-40 [facility] NORMAL RANGES Age WBC [...] HCT IS 5% LESS SOURCE FOR DATA: [employer] 1800 OPERATION MANUAL( AUTOMATED BLOOD COUNTS AND [...] HCT IS 5% LESS SOURCE FOR DATA: [employer] 1800 OPERATION MANUAL( AUTOMATED BLOOD COUNTS AND [...] YEARS EXCLUSIVE. Osmolality-Calculated 291.3 CALC [facility] ([facility] [...] HCT IS 5% LESS SOURCE FOR DATA: [employer] 1800 OPERATION MANUAL( AUTOMATED BLOOD COUNTS [...] 2-19 YEARS EXCLUSIVE. Tbili 0.22 mg/dL 0.0-1.2 [facility] NORMAL RANGES Age WBC [...] HCT IS 5% LESS SOURCE FOR DATA: [employer] 1800 OPERATION MANUAL( AUTOMATED BLOOD COUNTS AND [...] HCT IS 5% LESS SOURCE FOR DATA: [employer] 1800 OPERATION MANUAL( AUTOMATED BLOOD COUNTS AND [...] [facility] CKD-EPI eGFR Non-Afr. Afghan 70 # [facility] ([facility] CKD-EPI ID Date Data Source [id number] 11/11/2020 02:21:00 PM EST [facility] ([facility] Name Value Range [...] HCT IS 5% LESS SOURCE FOR DATA: [employer] 1800 OPERATION MANUAL( AUTOMATED BLOOD COUNTS AND [...] HCT IS 5% LESS SOURCE FOR DATA: [employer] 1800 OPERATION MANUAL( AUTOMATED BLOOD COUNTS AND [...] 2-19 YEARS EXCLUSIVE. Trig 108 mg/dL 40-200 [facility] ([facility] NORMAL [...] 2-19 YEARS EXCLUSIVE. LDL_C 128 Calc 75-129 [facility] ([facility] NORMAL RANGES [...] HCT IS 5% LESS SOURCE FOR DATA: [employer] 1800 OPERATION MANUAL( AUTOMATED BLOOD COUNTS AND [...] 2-19 YEARS EXCLUSIVE. Cho/HDL Ratio 3.0 Calc [facility] ([facility] NORMAL RANGES Age WBC RBC HGB [...] HCT IS 5% LESS SOURCE FOR DATA: [employer] 1800 OPERATION MANUAL( AUTOMATED BLOOD COUNTS AND [...] 2-19 YEARS EXCLUSIVE. ID Date Data Source [id number] 11/11/2020 02:21:00 PM EST [facility] ([facility] Name Value Range Interpretation Code Description Data Izabela rce(s) Supporting Document(s) Hemoglobin A1c/Hemoglobin.total in Blood 7.1 % 4.50-6.20 Above high normal [facility] ([facility] ID Date Data Source [id number] 11/11/2020 02:21:00 PM EST [facility] ([facility] Name Value Range Interpretation Code Description Data Izabela rce(s) Supporting Document(s) Glu 227 mg/dL 70-110 Above high normal [facility] ([facility], [...] HCT IS 5% LESS SOURCE FOR DATA: [employer] 1800 OPERATION MANUAL( AUTOMATED BLOOD COUNTS AND [...] 28 mg/dL 8-23 Above high normal [facility] ([facility] NORMAL RANGES Age WBC [...] HCT IS 5% LESS SOURCE FOR DATA: [employer] 1800 OPERATION MANUAL( AUTOMATED BLOOD COUNTS AND [...] 2-19 YEARS EXCLUSIVE. Creat 0.8 mg/dL 0.5-1.0 [facility] ([facility] NORMAL RANGES [...] HCT IS 5% LESS SOURCE FOR DATA: Gynzy DYN 1800 OPERATION MANUAL( AUTOMATED BLOOD COUNTS [...] 2-19 YEARS EXCLUSIVE. BUN/Creatinine Ratio 35.0 CALC [facility] ([facility] NORMAL RANGES Age [...] HCT IS 5% LESS SOURCE FOR DATA: [employer] 1800 OPERATION MANUAL( AUTOMATED BLOOD COUNTS AND [...] HCT IS 5% LESS SOURCE FOR DATA: [employer] 1800 OPERATION MANUAL( AUTOMATED BLOOD COUNTS AND [...] 2-19 YEARS EXCLUSIVE. Na 139 mmol/L 136-145 [facility] ([facility] NORMAL RANGES Age WBC [...] HCT IS 5% LESS SOURCE FOR DATA: Gynzy DYN 1800 OPERATION MANUAL( AUTOMATED BLOOD COUNTS [...] 2-19 YEARS EXCLUSIVE. CL 100.7 mmol/L 98.0-107.0 [facility] ([facility] NORMAL RANGES Age WBC RBC HGB [...] HCT IS 5% LESS SOURCE FOR DATA: [employer] 1800 OPERATION MANUAL( AUTOMATED BLOOD COUNTS AND [...] YEARS EXCLUSIVE. Co2 26.5 mmol/L 22.0-29.0 [facility] ([facility] NORMAL RANGES Age WBC RBC [...] HCT IS 5% LESS SOURCE FOR DATA: Gynzy DYN 1800 OPERATION MANUAL( AUTOMATED BLOOD COUNTS [...] 2-19 YEARS EXCLUSIVE. CA 8.9 mg/dL 8.6-10.2 [facility] ([facility] NORMAL RANGES [...] HCT IS 5% LESS SOURCE FOR DATA: [employer] 1800 OPERATION MANUAL( AUTOMATED BLOOD COUNTS AND [...] HCT IS 5% LESS SOURCE FOR DATA: [employer] 1800 OPERATION MANUAL( AUTOMATED BLOOD COUNTS AND [...] 2-19 YEARS EXCLUSIVE. Alb 4.0 g/dL 3.4-4.8 [facility] ([facility] NORMAL [...] HCT IS 5% LESS SOURCE FOR DATA: [employer] 1800 OPERATION MANUAL( AUTOMATED BLOOD COUNTS AND [...] 2-19 YEARS EXCLUSIVE. A/G Ratio 2.4 CALC [facility] ([facility] NORMAL RANGES [...] HCT IS 5% LESS SOURCE FOR DATA: Gynzy DYN 1800 OPERATION MANUAL( AUTOMATED BLOOD COUNTS [...] 2-19 YEARS EXCLUSIVE. Alp 58.9 U/L 35-129 [facility] ([facility] [...] HCT IS 5% LESS SOURCE FOR DATA: [employer] 1800 OPERATION MANUAL( AUTOMATED BLOOD COUNTS AND [...] AGED 2-19 YEARS EXCLUSIVE. Globulin 1.6 CALC [facility] ([facility] NORMAL RANGES [...] HCT IS 5% LESS SOURCE FOR DATA: [employer] 1800 OPERATION MANUAL( AUTOMATED BLOOD COUNTS AND [...] YEARS EXCLUSIVE. Alt (SGPT) 9 U/L 0-41 [facility] ([facility] NORMAL RANGES Age WBC [...] HCT IS 5% LESS SOURCE FOR DATA: Gynzy DYN 1800 OPERATION MANUAL( AUTOMATED BLOOD COUNTS [...] EXCLUSIVE. Ast (Sgot) 10 U/L 0-40 [facility] ([facility] NORMAL [...] HCT IS 5% LESS SOURCE FOR DATA: [employer] 1800 OPERATION MANUAL( AUTOMATED BLOOD COUNTS AND [...] 2-19 YEARS EXCLUSIVE. Tbili 0.37 mg/dL 0.0-1.2 [facility] ([facility] NORMAL RANGES Age WBC RBC [...] HCT IS 5% LESS SOURCE FOR DATA: [employer] 1800 OPERATION MANUAL( AUTOMATED BLOOD COUNTS AND [...] HCT IS 5% LESS SOURCE FOR DATA: [employer] 1800 OPERATION MANUAL( AUTOMATED BLOOD COUNTS AND [...] 2-19 YEARS EXCLUSIVE. Anion Gap 16 mmol/L [facility] ([facility] [...] HCT IS 5% LESS SOURCE FOR DATA: [employer] 1800 OPERATION MANUAL( AUTOMATED BLOOD COUNTS AND [...] YEARS EXCLUSIVE. eGFR 82 # [facility] ( [facility] CKD-EPI eGFR Non-Afr. Afghan 71 # [facility] ([facility] CKD-EPI ID Date Data Source [id number] 11/11/2020 02:21:00 PM EST [facility] ([facility] Name Value Range Interpretation Code Description Data Izabela rce(s) Supporting Document(s) WBC 8.3 10E3/uL 4.1-10.9 [facility] ([facility] NORMAL RANGES Age WBC [...] HCT IS 5% LESS SOURCE FOR DATA: Gynzy DYN 1800 OPERATION MANUAL( AUTOMATED BLOOD COUNTS [...] RBC 3.98 10E6/uL 4.20-6.30 Below low normal [facility] ([facility] NORMAL RANGES Age [...] HCT IS 5% LESS SOURCE FOR DATA: Gynzy DYN 1800 OPERATION MANUAL( AUTOMATED BLOOD COUNTS [...] HGB 11.3 g/dL 12.0-18.0 Below low normal [facility] ( [facility] NORMAL RANGES Age [...] HCT IS 5% LESS SOURCE FOR DATA: [employer] 1800 OPERATION MANUAL( AUTOMATED BLOOD COUNTS AND [...] 2-19 YEARS EXCLUSIVE. HCT 37.0 % 37.0-51.0 [facility] ([facility] NORMAL RANGES [...] HCT IS 5% LESS SOURCE FOR DATA: [employer] 1800 OPERATION MANUAL( AUTOMATED BLOOD COUNTS AND [...] 2-19 YEARS EXCLUSIVE. MCV 93.0 fL 80.0-97.0 [facility] ([facility] NORMAL [...] HCT IS 5% LESS SOURCE FOR DATA: [employer] 1800 OPERATION MANUAL( AUTOMATED BLOOD COUNTS AND [...] 2-19 YEARS EXCLUSIVE. MCH 28.4 pg 26.0-32.0 [facility] NORMAL RANGES Age WBC [...] HCT IS 5% LESS SOURCE FOR DATA: [employer] 1800 OPERATION MANUAL( AUTOMATED BLOOD COUNTS AND [...] HCT IS 5% LESS SOURCE FOR DATA: Gynzy DYN 1800 OPERATION MANUAL( AUTOMATED BLOOD COUNTS [...] 2-19 YEARS EXCLUSIVE. PLT 311 10E3/uL 140-440 [facility] ([facility] NORMAL RANGES Age WBC [...] HCT IS 5% LESS SOURCE FOR DATA: [employer] 1800 OPERATION MANUAL( AUTOMATED BLOOD COUNTS AND [...] 2-19 YEARS EXCLUSIVE. RDW-CV 13.8 % 11.5-14.5 [facility] ([facility] NORMAL RANGES Age WBC [...] HCT IS 5% LESS SOURCE FOR DATA: [employer] 1800 OPERATION MANUAL( AUTOMATED BLOOD COUNTS AND [...] 2-19 YEARS EXCLUSIVE. Lym% 10.2 % 10.0-58.5 [facility] ([facility] NORMAL RANGES [...] HCT IS 5% LESS SOURCE FOR DATA: [employer] 1800 OPERATION MANUAL( AUTOMATED BLOOD COUNTS AND [...] HCT IS 5% LESS SOURCE FOR DATA: [employer] 1800 OPERATION MANUAL( AUTOMATED BLOOD COUNTS AND [...] 2-19 YEARS EXCLUSIVE. Lym# 0.8 10E3/uL 0.6-4.1 [facility] ([facility] NORMAL RANGES Age WBC [...] 2-19 YEARS EXCLUSIVE. MXD% 4.7 % 0.1-24.0 [facility] ([facility] NORMAL RANGES [...] HCT IS 5% LESS SOURCE FOR DATA: [employer] 1800 OPERATION MANUAL( AUTOMATED BLOOD COUNTS AND [...] 2-19 YEARS EXCLUSIVE. MXD# 0.4 10E3/uL 0.0-1.8 [facility] ([facility] NORMAL RANGES Age WBC [...] HCT IS 5% LESS SOURCE FOR DATA: [employer] 1800 OPERATION MANUAL( AUTOMATED BLOOD COUNTS AND [...] 2-19 YEARS EXCLUSIVE. Neut# 7.1 % 2.0-7.8 [facility] ([facility] NORMAL [...] 2-19 YEARS EXCLUSIVE. MPV 11.3 fL 9.0-13.0 [facility] ([facility] NORMAL RANGES [...] HCT IS 5% LESS SOURCE FOR DATA: [employer] 1800 OPERATION MANUAL( AUTOMATED BLOOD COUNTS AND [...] 2-19 YEARS EXCLUSIVE. ID Date Data Source [id number] 10/07/2020 01:51:00 PM EST [facility] ([facility] Name Value Range Interpretation Code Description Data Izabela rce(s) Supporting Document(s) Comment 1 Laboratory test result [facility] ([facility] NORMAL RANGES Routine Non- Anticoagulant Therapy = 0.9 - 1.1 Routine Anticoagulat Therapy = 2.0 - 3.0 High Risk Anticoagulant Therapy = 3.0 - 4.5 QC Check Laboratory test result [facility] ([facility] NORMAL RANGES Routine Non- Anticoagulant Therapy = 0.9 - 1.1 Routine Anticoagulat Therapy = 2.0 - 3.0 High Risk Anticoagulant Therapy = 3.0 - 4.5 Prothrombin Time-Therapy 15.4 [facility] ([facility] NORMAL RANGES Routine Non- Anticoagulant Therapy = 0.9 - 1.1 Routine Anticoagulat Therapy = 2.0 - 3.0 High Risk Anticoagulant Therapy = 3.0 - 4.5 Dosage Laboratory test result [facility] ([facility] NORMAL RANGES Routine Non- Anticoagulant Therapy = 0.9 - 1.1 Routine Anticoagulat Therapy = 2.0 - 3.0 High Risk Anticoagulant Therapy = 3.0 - 4.5 INR in Platelet poor plasma by Coagulation assay 1.3 [facility] ([facility] NORMAL RANGES Routine Non- Anticoagulant Therapy = 0.9 - 1.1 Routine Anticoagulat Therapy = 2.0 - 3.0 High Risk Anticoagulant Therapy = 3.0 - 4.5 Recheck Laboratory test result [facility] ([facility] NORMAL RANGES Routine Non- Anticoagulant Therapy = 0.9 - 1.1 Routine Anticoagulat Therapy = 2.0 - 3.0 High Risk Anticoagulant Therapy = 3.0 - 4.5 ID Date Data Source [id number] 09/29/2020 01:45:00 PM EST [facility] ([facility] Name Value Range Interpretation Code Description Data Izabela rce(s) Supporting Document(s) Prothrombin Time-Therapy 12.4 [facility] ([facility] INR in Platelet poor plasma by Coagulation assay 1.0 [facility] ([facility] Dosage Laboratory test result [facility] ([facility] Recheck Laboratory test result [facility] ([facility] ID Date Data Source [id number] 09/26/2020 08:59:00 PM EST [facility] ([facility] Name Value Range Interpretation Code Description Data Izabela rce(s) Supporting Document(s) Prothrombin Time 13.2 s 12.5-14.3 Normal (applies to non-numeric results) [facility] ([facility] Partial Thromboplastin Time 28.0 s 24.2-38.5 Norm al (applies to non-numeric results) [facility] ([facility] ) Inr 0.98 Normal (applies to non-numeric resul ts) [facility] ([facility] THERAPUTIC HUMAN INR VALUES INDICATIONS NORMAL RANGES PROPHYLAXIS/TREATMENT OF: VENOUS THROMBOSIS 2.0-3.0 PULMONARY EMBOLISM 2.0-3.0 PREVENTION OF SYSTEMIC EMBOLISM FROM: TISSUE HEART VALVES 2.0-3.0 ACUTE MYOCARDIAL INFARCTION 2.0-3.0 VALVULAR HEART DISEASE 2.0-3.0 ATRIAL FIBRILLATION 2.0-3.0 MECHANICAL VALVES(HIGH RISK) 2.5-3.5 RECURRENT MYOCARDIAL INFARCTION 2.5-3.5 ID Date Data Source [id number] 09/26/2020 08:43:00 PM EST [facility] ([facility] Name Value Range Interpretation Code Description Data Izabela rce(s) Supporting Document(s) Laboratory test finding (navigational concept) 0.00 ng/mL 0 .00-0.08 Normal (applies to non-numeric results) [facility] ([facility] ID Date Data Source [id number] 09/26/2020 08:43:00 PM EST [facility] ([facility] Name Value Range Interpretation Code Description Data Izabela rce(s) Supporting Document(s) Troponin I.cardiac [Mass/volume] in Serum or Plasma Laboratory test result [facility] ([facility] Laboratory test finding (navigational concept) 0.00 ng/mL 0 .00-0.08 Normal (applies to non-numeric results) [facility] ([facility] ID Date Data Source [id number] 09/26/2020 08:42:00 PM EST [facility] ([facility] Name Value Range Interpretation Code Description Data Izabela rce(s) Supporting Document(s) Blood Culture Laboratory test result Normal (applies t o non-numeric results) [facility] ([facility] <content>GRAM STAIN G ZARA POSITIVE [...]
<content>CLIDAMYCIN SENSITIVE.</content>
<content></content> ID Date Data Source [id number] 09/26/2020 08:42:00 PM EST [facility] ([facility] Name Value Range Interpretation Code Description Data Izabela rce(s) Supporting Document(s) Natriuretic peptide.B prohormone N-Terminal [Mass/volu me] in Serum or Plasma 870 pg/mL Above high normal [facility] ([facility] Thyrotropin [Units/volume] in Serum or Plasma 2.140 uIU/ML 0. 358-3.740 Normal (applies to non-numeric results) [facility] ID Date Data Source [id number] 09/26/2020 08:42:00 PM EST [facility] ([facility] Name Value Range Interpretation Code Description Data Izabela rce(s) Supporting Document(s) Blood Urea Nitrogen 17 mg/dL 7-18 Normal (applies to non-nume karyn results) [facility] ([facility] Glucose, Fasting 148 mg/dL 70-100 Above high normal [facility] ([facility] Creatinine For GFR 0.64 mg/dL 0.55-1.30 Normal (applies to non -numeric results) [facility] ([facility] Glomerular Filtration Rate Laboratory test result Normal (applies to non- numeric results) [facility] ([facility] ) <content>Units are mL/min/1.73 m2</content>
<content></content>
<content>Chronic Kidney Disease Staging per NKF:</content>
<content></content>
<content>Stage I & II GFR >=60 Normal to Mildly Decreased</content>
<content>Stage III GFR 30- 59 Moderately Decreased</content>
<content>Stage IV GFR 15-29 Severely Decreased</content>
<content>Stage V GFR <15 Very Little GFR Left</content>
<content>ESRD GFR <15 on SIDE BOSS</content>
<content></content> Potassium Serum 4.0 meq/L 3.5-5.1 Normal (applies to non-numeric results) [facility] ([facility] Sodium Level 139 meq/L 136-145 Normal (applies to non-numeric res ults) [facility] ([facility] Carbon Dioxide Level 32 meq/L 21-32 Normal (applies to non-num yassine results) [facility] ([facility] Chloride Level 101 meq/L 98-107 Normal (applies to non-numeric r esults) [facility] ([facility] Anion Gap 6 meq/L 8-16 Below low normal [facility] ( [facility] Calcium Level 9.0 mg/dL 8.8-10.2 Normal (applies to non-numeric re sults) [facility] ([facility] ID Date Data Source [id number] 09/26/2020 08:42:00 PM EST [facility] ([facility] Name Value Range Interpretation Code Description Data Izabela rce(s) Supporting Document(s) Alt/SGPT 20 U/L 12-78 Normal (applies to non-numeric resul ts) [facility] ([facility] Ast/Sgot 9 U/L 7-37 Normal (applies to non-numeric resul ts) [facility] ([facility] Alkaline Phosphatase 64 U/L 45-117 Normal (applies to non-num yassine results) [facility] ([facility] Bilirubin,Total 0.8 mg/dL 0.2-1.0 Normal (applies to non-numeric results) [facility] ([facility] Total Protein 6.1 GM/DL 6.4-8.2 Below low normal [facility] ([facility] Bilirubin,Direct 0.3 mg/dL 0.0-0.2 Above high normal [facility] ([facility] Albumin/Globulin Ratio 1.3 1.2-2.2 Normal (applies to non-n umeric results) [facility] ([facility] Albumin 3.4 GM/DL 3.2-5.2 Normal (applies to non-numeric resul ts) [facility] ([facility] ID Date Data Source [id number] 09/26/2020 08:42:00 PM EST [facility] ([facility] Name Value Range Interpretation Code Description Data Izabela rce(s) Supporting Document(s) CK-MB Value Mass 1.0 ng/mL Normal (applies to non-numeric results) [facility] ([facility] CPK Creatine Phosphokinase 28 U/L 26-192 Samantha l (applies to non-numeric results) [facility] ([facility] ) Troponin I Laboratory test result Normal (applies to non-n umeric results) [facility] ([facility] <content>Troponin I Reference Interval f or Siemens [place] LOCI:</content>
<content></content>
<content>99th Percentile= 0.00-0.045 ng/ml</content>
<content></content>
<content>Risk Stratification:</content>
<content><= 0.10 ng/ml Decreased Risk for Adverse Clinical</content>
<content>Events.</content>
<content>0.10-1.50 ng/ml Increased Risk for Adverse Clinical</content>
<content>Events. Evaluation of additional</content>
<content>criterion and/or repeat testing in 2-6</content>
<content>hours is suggested to rule out myocardial</content>
<content>damage.</content>
<content>>= 1.50 ng/ml Indicative of Myocardial Injury.</content>
<content></content> MB/CK Relative Index 3.57 Normal (applies to non-num yassine results) [facility] <content>DIAGNOSIS CRITERIA</content>
<content>MMB ng/ml Relative Index (RI)</content>
<content>NON-AMI < or = 5 N/A</content>
<content>ALANIS ZONE > 5 < or = 4</content>
<content>AMI > 5 > 4</content>
<content></content> ID Date Data Source [id number] 09/26/2020 08:42:00 PM EST [facility] ([facility] Name Value Range Interpretation Code Description Data Izabela rce(s) Supporting Document(s) Lactate [Mass/volume] in Serum or Plasma 0.7 mmol/L 0.4-2.0 Normal (applies to non-numeric results) [facility] ([facility] Y/N query for Sepsis Lactate Rule: Y ID Date Data Source [id number] 09/26/2020 08:42:00 PM EST [facility] ([facility] Name Value Range Interpretation Code Description Data Izabela rce(s) Supporting Document(s) White Blood Count 13.5 10 4.0-10.0 Above high normal [facility] ([facility] Red Blood Count 3.84 10 4.00-5.40 Below low normal [facility] ([facility] Hematocrit 37.3 % 36.0-47.0 Normal (applies to non-numeric resul ts) [facility] ([facility] Hemoglobin 11.1 g/dL 12.0-15.5 Below low normal [facility] ( [facility] Mean Corpuscular Hemoglobin 28.9 pg 27.0-33.0 Norm al (applies to non-numeric results) [facility] ([facility] Mean Corpuscular Volume 97.1 fl 80.0-96.0 Above high normal [facility] ([facility] Red Cell Distribution Width 14.4 % 11.5-14.5 Norm al (applies to non-numeric results) [facility] ([facility] Mean Corpuscular HGB Conc 29.8 g/dL 32.0-36.5 Below low normal [facility] ([facility] Neutrophils % 74.1 % 36.0-66.0 Above high normal [facility] ([facility] Platelet Count, Automated 393 10 150-450 Normal (applies to non-numeric results) [facility] ([facility] ) [place] % 9.3 % 0.0-5.0 Above high normal [facility] ([facility] Lymph % 14.2 % 24.0-44.0 Below low normal [facility] ( [facility] Baso % 0.5 % 0.0-1.0 Normal (applies to non-numeric resul ts) [facility] ([facility] Eos % 1.1 % 0.0-3.0 Normal (applies to non-numeric resul ts) [facility] ([facility] Nucleated Red Blood Cell % 0.0 % 0-0 Normal (applies to n on-numeric results) [facility] ([facility] Immature Granulocyte % 0.8 % 0-3.0 Normal (applies to non-n umeric results) [facility] ([facility] Neutrophils # 10.0 10 1.5-8.5 Above high normal [facility] ([facility] Lymph # 1.9 10 1.5-5.0 Normal (applies to non-numeric resul ts) [facility] ([facility] [place] # 1.3 10 0.0-0.8 Above high normal [facility] ([facility] Eos # 0.2 10 0.0-0.5 Normal (applies to non-numeric resul ts) [facility] ([facility] Baso # 0.1 10 0.0-0.2 Normal (applies to non-numeric resul ts) [facility] ([facility] ID Date Data Source [id number] 09/26/2020 08:26:00 PM EST [facility] ([facility] Name Value Range Interpretation Code Description Data Izabela rce(s) Supporting Document(s) Laboratory test finding (navigational concept) 7.325 units 7 .350-7.450 Below low normal [facility] ([facility] ) Laboratory test finding (navigational concept) 60.9 MMHG 3 5.0-45.0 Above upper panic limits [facility] ([facility] Laboratory test finding (navigational concept) 140.0 MMHG 8 0-105 Above high normal [facility] ([facility] Laboratory test finding (navigational concept) 34.0 mmol/L 2 3.0-27.0 Above high normal [facility] ([facility] ) Laboratory test finding (navigational concept) 31.7 mmol/L 2 2.0-26.0 Above high normal [facility] ([facility] ) Laboratory test finding (navigational concept) 6.0 mmol/L Above high normal [facility] ([facility] Laboratory test finding (navigational concept) 99 % 95-98 Above high normal [facility] ([facility] ID Date Data Source [id number] 09/11/2020 03:17:00 PM EDT [facility] ([facility] Name Value Range Interpretation Code Description Data Izabela rce(s) Supporting Document(s) INR in Platelet poor plasma by Coagulation assay 1.1 [facility] ([facility] Prothrombin Time-Therapy 12.7 [facility] ([facility] Recheck Laboratory test result [facility] ([facility] Comment 1 Laboratory test result [facility] ([facility] Dosage Laboratory test result [facility] ([facility] ID Date Data Source [id number] 08/26/2020 11:32:00 AM EDT [facility] ([facility] Name Value Range Interpretation Code Description Data Izabela rce(s) Supporting Document(s) Prothrombin Time-Therapy 24.3 [facility] ([facility] INR in Platelet poor plasma by Coagulation assay 2.0 [facility] ([facility] Dosage Laboratory test result [facility] ([facility] Recheck Laboratory test result [facility] ([facility] Procedure Social History Code Duration Value Status Description Data Source(s ) Smoking 09/29/2021 12:00:00 AM EST - 11/20/2009 12:00:00 AM EST Patient is a former smoker completed Patient is a former smoker [facility] ([facility], ) Alcohol intake 05/18/2021 12:00:00 AM EDT Ex-drinker (finding) comp leted Ex- drinker (finding) [facility] Alcohol intake 10/08/2020 12:00:00 AM EST Not Currently completed [facility] Cigarette pack-years 10/08/2020 12:00:00 AM EST UNK completed [facility] Cigarettes smoked current (pack per day) - Reported 10/08/20 12:00:00 AM EST UNK completed [facility] Smoking 10/08/2020 12:00:00 AM EST Former smoker completed Former smoker [facility] Alcohol intake 09/23/2020 12:00:00 AM EST Not Currently completed [facility] Cigarette pack-years 09/23/2020 12:00:00 AM EST UNK completed [facility] Cigarettes smoked current (pack per day) - Reported 09/23/20 12:00:00 AM EST UNK completed [facility] Smoking 09/23/2020 12:00:00 AM EST Former smoker completed Former smoker [facility] Tobacco use and exposure 09/22/2020 12:00:00 AM EST Never used co mpleted Never used [facility] Cigarette pack-years 09/22/2020 12:00:00 AM EST UNK completed [facility] Cigarettes smoked current (pack per day) - Reported 09/22/20 12:00:00 AM EST UNK completed [facility] Smoking 09/22/2020 12:00:00 AM EST Former smoker completed Former smoker [facility] Vital Signs ID Date Data Source UNK Name Value Range Interpretation Code Description Data Source(s) Systolic blood pressure 138 mm[Hg] 138 mm[Hg] M [facility] ([facility] [facility], ) Diastolic blood pressure 62 mm[Hg] 62 mm[Hg] MEDENT ([facility], ) Heart rate 95 /min 95 /min [facility] ([facility], ) [place] body weight 105 [lb_av] 105 [lb_av] MEDEN T ([facility], ) Body weight 66.679 kg 66.679 kg [facility]ENT ([facility]) Body surface area Derived from formula 1.66 m2 1.66 m2 [facility] ([facility]) Oxygen saturation in Arterial blood by Pulse oximetry 981.5 % 981.5 % [facility] ([facility]) Body height 61 [in_i] 61 [in_i] [facility] 5'1" Body weight 147.00 [lb_av] 147.00 [lb_av] MEDEN T ([facility]) Body mass index (BMI) [Ratio] 27.8 kg/m2 27.8 k g/m2 [facility] Heart rate 80 /min 80 /min MEDENT ([facility] Systolic blood pressure 122 mm[Hg] 122 mm[Hg] M EDENT ([facility] Respiratory rate 16 /min 16 /min MEDENT ( [facility] Body height 62 [in_i] 62 [in_i] MEDENT ([facility] 5'2" Oxygen saturation in Arterial blood by Pulse oximetry 98 % 98 % MEDENT ([facility] (On O2 @ 1.5 LPM [place]) [place] body weight 110 [lb_av] 110 [lb_av] MEDEN T ([facility] Diastolic blood pressure 54 mm[Hg] 54 mm[Hg] MEDENT ([facility] Body temperature 98.1 [degF] 98.1 [degF] MEDENT ([facility] Body weight 134.00 [lb_av] 134.00 [lb_av] MEDEN T ([facility] Systolic blood pressure 122 mm[Hg] 122 mm[Hg] M EDENT ([facility] Diastolic blood pressure 62 mm[Hg] 62 mm[Hg] MEDENT ([facility] Respiratory rate 18 /min 18 /min MEDENT ( [facility] Body temperature 98.5 [degF] 98.5 [degF] MEDENT ([facility] Heart rate 67 /min 67 /min MEDENT ([facility] Oxygen saturation in Arterial blood by Pulse oximetry 97 % 97 % MEDENT ([facility] Systolic blood pressure 120 mm[Hg] 120 mm[Hg] M EDENT ([facility], ) Diastolic blood pressure 80 mm[Hg] 80 mm[Hg] MEDENT ([facility], ) Heart rate 110 /min 110 /min [facility] ([facility], ) Oxygen saturation in Arterial blood by Pulse oximetry 973 % 973 % [facility] ([facility], ) Body height 61 [in_i] 61 [in_i] [facility], [facility] 5'1" [place] body weight 105 [lb_av] 105 [lb_av] MEDEN T ([facility], ) Heart rate 90 /min 90 /min MEDENT ([facility] Diastolic blood pressure 64 mm[Hg] 64 mm[Hg] MEDENT ([facility] Systolic blood pressure 124 mm[Hg] 124 mm[Hg] M EDENT ([facility] Respiratory rate 18 /min 18 /min MEDENT ( [facility] Oxygen saturation in Arterial blood by Pulse oximetry 98 % 98 % MEDENT ([facility] Body temperature 97.0 [degF] 97.0 [degF] MEDENT ([facility] Systolic blood pressure 138 mm[Hg] 138 mm[Hg] M EDENT ([facility] Diastolic blood pressure 76 mm[Hg] 76 mm[Hg] MEDENT ([facility] Heart rate 90 /min 90 /min MEDENT ([facility] Respiratory rate 16 /min 16 /min MEDENT ( [facility] Body weight 142.00 [lb_av] 142.00 [lb_av] MEDEN T ([facility] Systolic blood pressure 112 mm[Hg] 112 mm[Hg] [facility] Diastolic blood pressure 58 mm[Hg] 58 mm[Hg] [facility] Heart rate 82 /min 82 /min [facility] Body height 160 cm 160 cm [facility] Body weight 63.957 kg 63.957 kg [facility] Oxygen saturation in Arterial blood by Pulse oximetry 98 % 98 % [facility] Body mass index (BMI) [Ratio] 24.98 kg/m2 24.98 kg/m2 [facility] Body height 61 [in_i] 61 [in_i] [facility] ([facility]) 5'1" Body mass index (BMI) [Ratio] 27.2 kg/m2 27.2 k g/m2 [facility] ([facility]) Body weight 144.00 [lb_av] 144.00 [lb_av] MEDEN T ([facility]) [place] body weight 105 [lb_av] 105 [lb_av] MEDEN T ([facility]) Body weight 65.318 kg 65.318 kg [facility] ([facility]) Body surface area Derived from formula 1.64 m2 1.64 m2 [facility] ([facility]) Body height 61 [in_i] 61 [in_i] MEDENT ([facility]) 5'1" Body weight 144.00 [lb_av] 144.00 [lb_av] MEDEN T ([facility]) Body mass index (BMI) [Ratio] 27.2 kg/m2 27.2 k g/m2 [facility] ([facility]) [place] body weight 105 [lb_av] 105 [lb_av] MEDEN T ([facility]) Body weight 65.318 kg 65.318 kg [facility] ([facility]) Body surface area Derived from formula 1.64 m2 1.64 m2 [facility] ([facility]) Respiratory rate 16 /min 16 /min MEDENT ( [facility] Heart rate 82 /min 82 /min MEDENT ([facility] Diastolic blood pressure 78 mm[Hg] 78 mm[Hg] MEDENT ([facility] Body height 62 [in_i] 62 [in_i] MEDENT ([facility] 5'2" Body weight 144.00 [lb_av] 144.00 [lb_av] MEDEN T ([facility] [place] body weight 110 [lb_av] 110 [lb_av] MEDEN T ([facility] Body mass index (BMI) [Ratio] 26.3 kg/m2 26.3 k g/m2 ANTHONY ([facility] Oxygen saturation in Arterial blood by Pulse oximetry 98 % 98 % ANTHONY ([facility] (On O2 @ 1.5 LPM [place]) Body temperature 97.7 [degF] 97.7 [degF] ANTHONY ([facility] Systolic blood pressure 146 mm[Hg] 146 mm[Hg] M CHRISTAL ([facility] Systolic blood pressure 138 mm[Hg] 138 mm[Hg] [facility] Diastolic blood pressure 68 mm[Hg] 68 mm[Hg] [facility] Heart rate 94 /min 94 /min [facility] Body height 160 cm 160 cm [facility] Body weight 66.679 kg 66.679 kg [facility] Body mass index (BMI) [Ratio] 26.04 kg/m2 26.04 kg/m2 [facility] Oxygen saturation in Arterial blood by Pulse oximetry 97 % 97 % [facility] Body weight 140.00 [lb_av] 140.00 [lb_av] MEDEN T ([facility] [place] body weight 110 [lb_av] 110 [lb_av] MEDEN T ([facility] Systolic blood pressure 134 mm[Hg] 134 mm[Hg] M CHRISTAL ([facility] Diastolic blood pressure 76 mm[Hg] 76 mm[Hg] ANTHONY ([facility] Body temperature 97.4 [degF] 97.4 [degF] MEDPOLO ([facility] Heart rate 100 /min 100 /min MEDENT ([facility] Respiratory rate 20 /min 20 /min MEDENT ( [facility] Body height 62 [in_i] 62 [in_i] [facility] ([facility] 5'2" Body mass index (BMI) [Ratio] 25.6 kg/m2 25.6 k g/m2 MEDENT ([facility] Oxygen saturation in Arterial blood by Pulse oximetry 98 % 98 % MEDENT ([facility] Body height 61 [in_i] 61 [in_i] MEDENT ([facility], ) 5'1" [place] body weight 105 [lb_av] 105 [lb_av] MEDEN T ([facility], ) Systolic blood pressure 118 mm[Hg] 118 mm[facility]Hg] [facility] Diastolic blood pressure 82 mm[Hg] 82 mm[Hg] [facility] ([facility]) Heart rate 103 /min 103 /min [facility] ([facility]) Oxygen saturation in Arterial blood by Pulse oximetry 98 % 98 % [facility] ([facility], ) Systolic blood pressure 122 mm[Hg] 122 mm[Hg] M EDENT ([facility] Diastolic blood pressure 66 mm[Hg] 66 mm[Hg] MEDENT ([facility] Body temperature 99.6 [degF] 99.6 [degF] MEDENT ([facility] Heart rate 58 /min 58 /min MED[facility] ([facility] Respiratory rate 16 /min 16 /min MEDENT ( [facility] Body height 62 [in_i] 62 [in_i] [facility] ([facility] 5'2" [place] body weight 110 [lb_av] 110 [lb_av] MEDEN T ([facility] Oxygen saturation in Arterial blood by Pulse oximetry 97 % 97 % MEDENT ([facility] (On O2 @ 1 LPM [place]) Systolic blood pressure 118 mm[Hg] 118 mm[Hg] M EDENT ([facility] Diastolic blood pressure 62 mm[Hg] 62 mm[Hg] MEDENT ([facility] Body temperature 99.6 [degF] 99.6 [degF] MEDENT ([facility] Heart rate 98 /min 98 /min MEDENT ([facility] Respiratory rate 18 /min 18 /min MEDPOLO ( [facility] Body height 62 [in_i] 62 [in_i] MEDENT ([facility] 5'2" [place] body weight 110 [lb_av] 110 [lb_av] MEDEN T ([facility] Oxygen saturation in Arterial blood by Pulse oximetry 96 % 96 % ANTHONY ([facility] (On O2 @ 1 LPM [place]) Systolic blood pressure 140 mm[Hg] 140 mm[Hg] [facility] Diastolic blood pressure 66 mm[Hg] 66 mm[Hg] [facility] Heart rate 97 /min 97 /min [facility] Body height 160 cm 160 cm [facility] Body weight 66.679 kg 66.679 kg [facility] Body mass index (BMI) [Ratio] 26.04 kg/m2 26.04 kg/m2 [facility] Oxygen saturation in Arterial blood by Pulse oximetry 96 % 96 % [facility] Systolic blood pressure 142 mm[Hg] 142 mm[Hg] [facility] Diastolic blood pressure 84 mm[Hg] 84 mm[Hg] [facility] Body height 160 cm 160 cm [facility] Body weight 68.04 kg 68.04 kg [facility] Body mass index (BMI) [Ratio] 26.57 kg/m2 26.57 kg/m2 [facility] Oxygen saturation in Arterial blood by Pulse oximetry 97 % 97 % [facility] Body mass index (BMI) [Ratio] 28.2 kg/m2 28.2 k g/m2 ANTHONY ([facility]) [place] body weight 105 [lb_av] 105 [lb_av] MEDEN T ([facility]) Body weight 67.586 kg 67.586 kg [facility] ([facility]) Systolic blood pressure 118 mm[Hg] 118 mm[Hg] M EDENT ([facility]) Diastolic blood pressure 68 mm[Hg] 68 mm[Hg] MEDENT ([facility]) Heart rate 111 /min 111 /min [facility] ([facility]) Oxygen saturation in Arterial blood by Pulse oximetry 961 % 961 % [facility] ([facility]) Body height 61 [in_i] 61 [in_i] [facility] ([facility]) 5'1" Body weight 149.00 [lb_av] 149.00 [lb_av] MEDEN T ([facility]) Body surface area Derived from formula 1.67 m2 1.67 m2 [facility] ([facility]) Oxygen saturation in Arterial blood by Pulse oximetry 98 % 98 % [facility] ([facility] (On O2 @ 1 LPM [place]) Systolic blood pressure 124 mm[Hg] 124 mm[Hg] [facility] Diastolic blood pressure 68 mm[Hg] 68 mm[Hg] MEDENT ([facility] Body temperature 98.6 [degF] 98.6 [degF] MEDENT ([facility] Heart rate 100 /min 100 /min MED[facility] ([facility] Respiratory rate 20 /min 20 /min MEDENT ( [facility] Body height 62 [in_i] 62 [in_i] MEDENT ([facility] 5'2" [place] body weight 110 [lb_av] 110 [lb_av] MEDEN T ([facility] Body mass index (BMI) [Ratio] 27.1 kg/m2 27.1 k g/m2 MED[facility] ([facility] Oxygen saturation in Arterial blood by Pulse oximetry 87 % 87 % MEDPOLO ([facility] with O2 @3L via nasal cannula Diastolic blood pressure 66 mm[Hg] 66 mm[Hg] MEDPOLO ([facility] Body temperature 98.1 [degF] 98.1 [degF] ANTHONY ([facility] Heart rate 98 /min 98 /min ANTHONY ([facility] Respiratory rate 18 /min 18 /min MEDPOLO ( [facility] Body weight 148.00 [lb_av] 148.00 [lb_av] MEDEN T ([facility] per pt [place] body weight 110 [lb_av] 110 [lb_av] YIEN T ([facility] Body height 62 [in_i] 62 [in_i] ANTHONY ([facility] 5'2" Systolic blood pressure 114 mm[Hg] 114 mm[Hg] M CHRISTAL ([facility] Patient Treatment Plan of Care Planned Activity Planned Date Details Description Data Source (s) albuterol (PROVENTIL HFA;VENTOLIN HFA) 108 (90 Base) M CG/ACT inhaler 05/18/2021 12:00:00 AM EDT [facility] apixaban 5 MG Oral Tablet [Eliquis] 04/13/2021 12:00:00 AM EDT [facility] apixaban 5 MG Oral Tablet 01/14/2021 12:00:00 AM [facility] tramadol hydrochloride 50 MG Oral Tablet 12/31/2020 12:00:00 AM EST [facility] apixaban 5 MG Oral Tablet [Eliquis] 12/04/2020 12:00:00 AM EST [facility] apixaban 5 MG Oral Tablet 10/08/2020 12:00:00 AM EST [facility] Budesonide 0.25 MG/ML Inhalant Solution 09/08/2020 12:00:00 AM EDT [facility] montelukast 10 MG Oral Tablet 09/03/2020 12:00:00 AM EDT [facility] 60 ACTUAT Budesonide 0.16 MG/ACTUAT / fo rmoterol fumarate 0.0045 MG/ACTUAT Metered Dose Inhaler 09/01/2020 12:00:00 AM EDT [facility] Albuterol 0.83 MG/ML Inhalant Solution 08/25/2020 12:00:00 AM EDT [facility] Prednisone 10 MG Oral Tablet 08/25/2020 12:00:00 AM EDT [facility] Warfarin Sodium 2 MG Oral Tablet 08/12/2020 12:00:00 AM EDT [facility] albuterol (PROVENTIL HFA;VENTOLIN HFA) 108 (90 Base) M CG/ACT inhaler 08/08/2020 12:00:00 AM EDT [facility] Metformin hydrochloride 500 MG Oral Tablet 08/04/2020 12:00:00 AM E DT [facility] Warfarin Sodium 3 MG Oral Tablet 08/01/2020 12:00:00 AM EDT [facility] SPIRIVA RESPIMAT 1.25 MCG/ACT AERS 07/06/2020 12:00:00 AM EDT [facility] atorvastatin 40 MG Oral Tablet [facility] sennosides, FDC 8.6 MG Oral Tablet [facility] POLYETHYLENE GLYCOL 3350 142 MG/ML Oral Solution [facility]
--- NOTE | 2021-10-18 16:18 | REPVR ---
PROCEDURE INFORMATION: Exam: MR Cervical Spine Without Contrast Exam date and time: 10/18/2021 3:49 PM Age: 81 years old Clinical indication: Pain and injury or trauma; Fall; Wound; Without foreign body; Neck pain; Additional info: Fall cannot R/O FX TECHNIQUE: Imaging protocol: Multiplanar magnetic resonance images of the cervical spine without contrast. COMPARISON: CT Spine,cervical w/o contrast 10/18/2021 12:10 PM FINDINGS: Limitations: The study is severely limited due to patient motion artifact. Vertebrae: No definite fracture is identified. There is mild anterolisthesis of C2 on C3, C3 on C4, C4 on C5, and C7 on T1. There is minor retrolisthesis of C5 on C6. There is mild reversal of the normal cervical lordosis. Spinal cord: The cervical cord is of normal signal intensity and size. Discs/Spinal canal/Neural foramina: Severe degenerative changes of the cervical spine are present. There is no severe spinal canal stenosis. Multilevel neural foraminal narrowing from uncinate spurring and facet arthropathy is noted. Vasculature: Expected flow voids in the vertebral arteries. Soft tissues: The prevertebral soft tissues are within normal limits. IMPRESSION: 1. Severely limited exam due to motion artifact 2. No definite acute abnormality of the cervical spine 3. Marked degenerative changes of the cervical spine Electronically signed by: Xvai Oseguera On 10/18/2021 16:18:15 PM
[2021-10-18] MEDS ORDERED: LIDOCAINE 2% 5ML JELLY UROJET TOP ONE (17:00)
--- NOTE | 2021-10-18 18:24 | REP ---
INDICATION: fall. COMPARISON: 07/28/2021 also portable TECHNIQUE: AP supine FINDINGS: The technique utilized in obtaining the radiograph has magnified the cardiac silhouette and accentuated the interstitial markings. The cardiomediastinal silhouette lung adamson are unchanged. There is mild cardiomegaly accentuated by technique. There is interstitial fibrotic change status quo. No acute patchy parenchymal opacities or pleural effusions have developed. Mitral annular calcifications are noted status quo. There is a possible fracture left 8th posterior rib. IMPRESSION: No acute cardiopulmonary disease. Chronic cardiomediastinal and lung changes as described above. Possible left 8th rib fracture. CT recommended. <Electronically signed by Ab Villanueva > 10/18/21 [id number]
--- NOTE | 2021-10-18 18:25 | REP ---
INDICATION: fall, pain. COMPARISON: 01/07/2021 TECHNIQUE: AP and frog-lateral views FINDINGS: There is advanced asymmetric hip joint space narrowing with subchondral sclerosis. There is a ring osteophyte. Possible cortical irregularity superior femoral neck. IMPRESSION: Possible superior femoral neck fracture. CT recommended. <Electronically signed by Ab Villanueva > 10/18/21 [id number]
--- NOTE | 2021-10-18 20:36 | REPVR ---
PROCEDURE INFORMATION: Exam: CT Right Lower Extremity Without Contrast, Hip Exam date and time: 10/18/2021 7:26 PM Age: 81 years old Clinical indication: Injury or trauma; Fall; Blunt trauma; Hip; Right; Additional info: Fracture TECHNIQUE: Imaging protocol: CT of the Right lower extremity without contrast was performed. Exam focused on the hip. Radiation optimization: All CT scans at this facility use at least one of these dose optimization techniques: automated exposure control; mA and/or kV adjustment per patient size (includes targeted exams where dose is matched to clinical indication); or iterative reconstruction. COMPARISON: CR Hip, Ap,Lat 10/18/2021 5:28 PM FINDINGS: Tubes, catheters and devices: [place] catheter within a collapsed urinary bladder. Bones/joints: Degenerative changes in the right hip including subchondral cyst formation in femoroacetabular osteophytosis with narrowing of the superolateral joint compartment. Chronic hamstring avulsion demonstrated. Osteoporosis. Hip joint effusion. No fractures. Soft tissues: Small right inguinal hernia. Reproductive: There has been a hysterectomy. IMPRESSION: 1. Degenerative changes in the right hip including subchondral cyst formation in femoroacetabular osteophytosis with narrowing of the superolateral joint compartment. 2. There has been a hysterectomy. 3. Hip joint effusion. 4. No acute findings. Electronically signed by: Jatin Garcia On 10/18/2021 20:35:36 PM
--- NOTE | 2021-10-18 20:45 | REPVR ---
PROCEDURE INFORMATION: Exam: CT Chest Without Contrast; Diagnostic Exam date and time: 10/18/2021 7:26 PM Age: 81 years old Clinical indication: Injury or trauma; Fall; Blunt trauma (contusions or hematomas); Additional info: Rib fracture TECHNIQUE: Imaging protocol: Diagnostic computed tomography of the chest without contrast. 3D rendering (Not supervised by radiologist): MIP and/or 3D reconstructed images were created by the technologist. Radiation optimization: All CT scans at this facility use at least one of these dose optimization techniques: automated exposure control; mA and/or kV adjustment per patient size (includes targeted exams where dose is matched to clinical indication); or iterative reconstruction. COMPARISON: CT Chest without contrast 11/28/2019 2:28 PM FINDINGS: Tubes, catheters and devices: Status post kyphoplasties L2 on L3. Lungs: Moderate to severe paraseptal and centrilobular emphysematous changes most pronounced in the mid and upper lung zones. Chronic atelectasis/scarring lingular and left lower lobes. Well inflated lungs with flattened diaphragmatic contours and increased retrosternal airspace consistent with COPD. Pleural spaces: Unremarkable. No pneumothorax. No pleural effusion. Heart: There is moderate atherosclerotic calcification of the coronary arteries. Densely calcified mitral valve annulus. Mild cardiomegaly. Pulmonary arteries: There is enlargement of the central pulmonary arteries, findings which can be associated with pulmonary arterial hypertension which should be correlated clinically. Aorta: There is fusiform dilatation of the supravalvular ascending thoracic aorta which measures 3.7 cm. maximally. There is no saccular component. Thoracic aorta is diffusely ectatic. Lymph nodes: Unremarkable. No enlarged lymph nodes. Diaphragm: A small sliding hiatal hernia is present. Kidneys and ureters: Simple appearing cysts upper pole right kidney measures 1.7 cm and 9 mm in the upper pole of the left kidney. Nonobstructive calculus left kidney. Bones/joints: Chronic healed rib fracture right 12th and left 8th ribs. Age-indeterminate, possibly acute rib fracture right 7th rib. Acute fracture left 6th rib. Possible nondisplaced fracture left 5th rib. Osteoporosis. The spine demonstrates moderate degenerative changes. Soft tissues: Unremarkable. IMPRESSION: 1. Moderate to severe paraseptal and centrilobular emphysematous changes most pronounced in the mid and upper lung zones. 2. Age-indeterminate, possibly acute rib fracture right 7th rib. 3. Acute fracture left 6th rib. Possible nondisplaced fracture left 5th rib. 4. There is fusiform dilatation of the supravalvular ascending thoracic aorta which measures 3.7 cm. maximally. There is no saccular component. Thoracic aorta is diffusely ectatic. 5. There is enlargement of the central pulmonary arteries, findings which can be associated with pulmonary arterial hypertension which should be correlated clinically. 6. A small sliding hiatal hernia is present. 7. COPD. COMMENTS: Consistent with the [employer]'s Incidental Findings Committee white paper (J [employer] [place] [employer] 2018): Any incidental renal lesion less than 1 cm or classified as too small to characterize, or any incidental cystic renal lesion characterized as simple-appearing, is likely benign. No follow-up imaging is recommended for these lesions per consensus recommendations based on imaging criteria. Electronically signed by: Jatin Garcia On 10/18/2021 20:44:47 PM
[2021-10-18] MEDS: NS 1,000 ML IV SCH (21:14)
[2021-10-18] MEDS ORDERED: HOME MED LIST COMPLETE! XX SCH (23:00)
[2021-10-18] MEDS ORDERED: MAALOX 30 ML SUSP *UDC PO PRN (23:20)
[2021-10-18] MEDS ORDERED: MOM 30ML SUSPENSION UDC PO PRN (23:20)
[2021-10-18] MEDS ORDERED: PERCOCET 5MG/325MG TAB PO PRN (23:20)
--- NOTE | 2021-10-18 23:22 | HPEPDOC ---
[facility] Medical History & Physical Date of Admission Oct 18, 2021 Date of Service: Oct 18, 2021 Attending Physician: MEE ALLEN MD History and Physical TIME OF SERVICE: 1145pm CHIEF COMPLAINT: falls HISTORY OF PRESENT ILLNESS: is a 81 yr old f who presented w c/o of having 2 falls while trying to stand up w/o her walker to get to the commode. Unfortuantely she fell onto her face and couldnt get up. She denied loosing consciousness but remembers yelling at her her for a long time in order to get his attention. She has also been more short of breath recently and has had to use her inhaler up to 4 times a day. 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 She doesnt drink alcohol or use recreational drug use, retired FAMILY HISTORY: Mother HTN / Father COPD / Brother - COPD ALLERGIES: Please see below. HOME MEDICATIONS: Please see below. PHYSICAL EXAMINATION: Vital Signs Date Time Temp Pulse Resp B/P (MAP) Pulse Ox O2 Delivery O2 Flow Rate FiO2 10/18/21 10:56 98.2 74 36 135/89 (104) 99 Nasal Cannula 1.0 GENERAL APPEARANCE: slim build/ slightly anxious HEENT: she has extensive ecchymosis and swelling of the right periorbital and upper lip area CARDIOVASCULAR: RRR/NMRG LUNGS: she is having difficulties speaking full sentences w/o stopping to take a breath / she is using accessory muscles her breath sounds are diminished ABDOMEN: contour convex MUSCULOSKELETAL: wasting of the muscles in her arms, legs and hands NEUROLOGICAL: speech not dysarthric / she is hard of hearing PSYCHIATRIC: A&O / able to understand and follow all commands LABORATORY DATA: IMAGING: Hip xray IMPRESSION: Possible superior femoral neck fracture. CT recommended. CT cervical spine IMPRESSION: Exam limitations, chronic changes, and multiple anterolisthesis as described above. Due to the exam limitations I cannot rule out a fracture. MRI is recommended to search for marrow edema. CT head IMPRESSION: Chronic changes. No acute intracranial hemorrhage, midline shift or mass effect. No fracture visualized. CT maxillofacial IMPRESSION: No definite acute facial fracture. Chest xray IMPRESSION: No definite acute facial fracture. MRI Cervical spine IMPRESSION: 1. Severely limited exam due to motion artifact 2. No definite acute abnormality of the cervical spine 3. Marked degenerative changes of the cervical spine CT chest IMPRESSION: 1. Moderate to severe paraseptal and centrilobular emphysematous changes most pronounced in the mid and upper lung zones. 2. Age- indeterminate, possibly acute rib fracture right 7th rib. 3. Acute fracture left 6th rib. Possible nondisplaced fracture left 5th rib. 4. There is fusiform dilatation of the supravalvular ascending thoracic aorta which measures 3.7 cm. maximally. There is no saccular component. Thoracic aorta is diffusely ectatic. 5. There is enlargement of the central pulmonary arteries, findings which can be associated with pulmonary arterial hypertension which should be correlated clinically. 6. A small sliding hiatal hernia is present. 7. COPD CT extremity IMPRESSION: 1. Degenerative changes in the right hip including subchondral cyst formation in femoroacetabular osteophytosis with narrowing of the superolateral joint compartment. 2. There has been a hysterectomy. 3. Hip joint effusion. 4. No acute findings. MICROBIOLOGY: negative COVID ASSESSMENT: Ms. 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 PLAN: # Falls 2/2 weakness & vision impairment Plan: admit to medical floor / day time team to consult PT/OT /f/u Phosphorus # Left side rib fracture: Percocet /incentive spirometer # Acute COPD w Chronic hypoxemic respiratory failure (1.5L): supplemental O2 / continuous pulse oximetry / aspiration precautions / COPD diet / DuoNeb Q6H, Albuterol Q4HP, Prednisone + PPI / c/w Montelukast & Tiotropium # Anemia: f/u CBC / hold DOAC # Facial Bruising: ice pacs # Asymptomatic UTI: no need to treat # Chronic Metabolic Alkalosis 2/2 chronic COPD # Paroxysmal A fib: Metoprolol / DOAC is on hold pending repeat Hg # 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: Gabapentin # Depression: Venlafaxine # Essential HTN / Chronic HFpEF (euvolemic): f/u Is and Os / metoprolol for HTN DVT px n/a DOAC is on hold bc of facial hematoma Dispo: home after at least 2 midnights stay Home Medications Scheduled Apixaban (Eliquis) 5 Mg Tablet, 5 MG PO BID Atorvastatin Calcium (Atorvastatin Calcium) 40 Mg Tablet, 40 MG PO DAILY Budesonide (Budesonide) 0.5 Mg/2 Ml Ampul.neb, 0.5 MG INH BID Budesonide/Formoterol (Symbicort 160-4.5 Mcg Inhaler) 6 Gm Hfa.aer.ad, 2 PUFF INH BID Ergocalciferol (Vitamin D2) (Vitamin D2) 50,000 Units Cap, 50,000 UNITS PO QWEEK SUNDAYS Gabapentin (Gabapentin) 600 Mg Tablet, 600 MG PO QID Metformin HCl (Metformin HCl) 500 Mg Tab, 500 MG PO BID Metoprolol Tartrate (Metoprolol Tartrate) 25 Mg Tablet, 12.5 MG PO BID Montelukast Sodium (Singulair) 10 Mg Tab, 10 MG PO QHS Prednisone (Prednisone) 10 Mg Tablet, 10 MG PO DAILY Risedronate Sodium (Actonel) 150 Mg Tab, 150 MG PO QMONTH TAKES THE FIRST OF THE MONTH Tiotropium [place] (Spiriva Respimat) 4 Gm Mist.inhal, 2 PUFFS INH DAILY Venlafaxine HCl (Venlafaxine HCl ER) 150 Mg Cap.er.24h, 150 MG PO DAILY TAKES AT LUNCH Scheduled PRN Albuterol Sulf (Albuterol Sulfate) 2.5 Mg/3 Ml Vial.neb, 2.5 MG INH Q4H PRN for SHORTNESS OF BREATH Albuterol Sulfate (Ventolin Hfa) 108 Mcg/Act Aer, 2 PUFFS INH Q4H PRN for SHORTNESS OF BREATH Carboxymethylcellulose Sodium (Refresh Tears) 0.5 % Je, 1 DROP OU QID PRN for DRY EYES Fluticasone Propionate (Flonase Allergy Relief) 50 Mcg/Act Spr, 2 SPRAYS NA DAILY PRN for NASAL CONGESTION Allergies Coded Allergies: chocolate flavor (Verified Allergy, Severe, throat tightens, 05/31/21) Penicillins (Verified Adverse Reaction, Mild, shakes, 05/31/21) clarithromycin (Verified Adverse Reaction, Mild, shakes, 05/31/21) clavulanic acid (Verified Adverse Reaction, Mild, shakes, 05/31/21) ipratropium (Verified Adverse Reaction, Mild, shakes, 05/31/21) pseudoephedrine (Verified Adverse Reaction, Mild, flushed , 05/31/21) A-FIB/CHADSVASC A-FIB History Current/History of A-Fib/PAF?: Yes Current PO Anticoag Therapy: Yes MEE ALLEN MD Oct 18, 2021 23:22
--- OUTSIDE RECORDS SUMMARY | 2021-10-18 23:28 | CCD ---
Author Author [facility] Organization [facility] Address Unknown Phone Unavailable Care Team Providers Care Medical Officer Name Role Phone SANGITA PHILLIPS Unavailable Unavailable [...] Unavailable Kurtis Nuñez MD Unavailable Unavailable Kurtis Nueñz MD Unavailable Unavailable Kurtis Nuñez MD Unavailable [...] Unavailable Unavailable Kurtis Nuñez MD Unavailable Unavailable OUEIDA, ZAHER Unavailable Unavailable [...] Unavailable Unavailable Rigoberto SALAS MD Unavailable Unavailable [place], V ANKUSH PA-C Unavailable Unavailable Sukumar, V ANKUSH PA-C Unavailable Unavailable [place], V ANKUSH PA-C Unavailable Unavailable Sukumar, V ANKUSH PA-C Unavailable Unavailable [place], V ANKUSH PA-C Unavailable Unavailable [place], V ANKUSH PA-C Unavailable Unavailable [place], V ANKUSH PA-C Unavailable Unavailable [place], V ANKUSH PA-C Unavailable Unavailable [place], V ANKUSH PA-C Unavailable Unavailable [place], V ANKUSH PA-C Unavailable Unavailable [place], V ANKUSH PA-C Unavailable Unavailable [place], V ANKUSH PA-C Unavailable Unavailable [place], V ANKUSH PA-C Unavailable Unavailable [place], V ANKUSH PA-C Unavailable Unavailable ROSETTA MCINTOSH [...] Hawkins MD Unavailable Unavailable Loveless, A Sally WILDLIFE PROTECTOR Unavailable Unavailable Loveless, A Sally WILDLIFE PROTECTOR Unavailable Unavailable Loveless, A Sally WILDLIFE PROTECTOR Unavailable Unavailable Loveless, A Sally WILDLIFE PROTECTOR Unavailable Unavailable Loveless, A Sally WILDLIFE PROTECTOR Unavailable Unavailable Loveless, A Sally WILDLIFE PROTECTOR Unavailable Unavailable Loveless, A Sally WILDLIFE PROTECTOR Unavailable Unavailable Loveless, A Sally WILDLIFE PROTECTOR Unavailable Unavailable Loveless, A Sally WILDLIFE PROTECTOR Unavailable Unavailable Loveless, A Sally WILDLIFE PROTECTOR Unavailable Unavailable Loveless, A Sally WILDLIFE PROTECTOR Unavailable Unavailable Loveless, A Sally WILDLIFE PROTECTOR Unavailable Unavailable Loveless, A Sally WILDLIFE PROTECTOR Unavailable Unavailable Loveless, A Sally WILDLIFE PROTECTOR Unavailable Unavailable Loveless, A Sally WILDLIFE PROTECTOR Unavailable Unavailable Loveless, A Sally WILDLIFE PROTECTOR Unavailable Unavailable Loveless, A Sally WILDLIFE PROTECTOR Unavailable Unavailable Loveless, A Sally WILDLIFE PROTECTOR Unavailable Unavailable Loveless, A Sally WILDLIFE PROTECTOR Unavailable Unavailable Loveless, A Sally WILDLIFE PROTECTOR Unavailable Unavailable Loveless, A Sally WILDLIFE PROTECTOR Unavailable Unavailable Loveless, A Sally WILDLIFE PROTECTOR Unavailable Unavailable Loveless, A Sally WILDLIFE PROTECTOR Unavailable Unavailable Loveless, A Sally WILDLIFE PROTECTOR Unavailable Unavailable Loveless, A Sally WILDLIFE PROTECTOR Unavailable Unavailable Loveless, A Sally WILDLIFE PROTECTOR Unavailable Unavailable Loveless, A Sally WILDLIFE PROTECTOR Unavailable Unavailable Loveless, A Sally WILDLIFE PROTECTOR Unavailable Unavailable Loveless, A Sally WILDLIFE PROTECTOR Unavailable Unavailable Loveless, A Sally WILDLIFE PROTECTOR Unavailable Unavailable Loveless, A Sally WILDLIFE PROTECTOR Unavailable Unavailable Gurwinder COOPER . Unavailable Unavailable [...] is protected by Article 27-F of the [facility] Public Health law. If you continue you may have access to information: Regarding HIV / AIDS; Provided by facilities licensed or operated by the [facility] Office of Mental Health; or Provided by the [facility] Office for People With Developmental Disabilities. If such information is present, then the following [facility] mandated warning applies: This information has [...] law may result in a fine or assisted sentence or both. A general authorization for the release of medical or other information is NOT sufficient authorization for further disc losure. Allergies and Adverse Reactions Type Description Substance Reaction Status Data Source(s ) Propensity to adverse reactions NO KNOWN ALLERGIES NO KNOWN ALLERGIES [facility] Drug allergy AMOXICILLIN-POT CLAVULANATE AMOXICILLIN-POT CLAVULANATE [facility] Propensity to adverse reactions CLARITHROMYCIN Clarithromycin [facility] Drug allergy PSEUDOEPHEDRINE HCL PSEUDOEPHEDRINE HCL [facility] Propensity to adverse reactions PSEUDOEPHEDRINE Pseudoephedrine Active [facility] Propensity to adverse reactions PSEUDOEPHEDRINE HCL Pseudoephedrine Hcl Active [facility] Propensity to adverse reactions OTHER Other Acti ve [facility] Propensity to adverse reactions CLARITHROMYCIN Clarithromycin Active [facility] Propensity to adverse reactions AMOXICILLIN-POT CLAVULANATE Amoxicillin-Pot Clavulanate Active [facility] Family History Family Member Name Family Member Gender Family Member Status Date o f Status Description Data Source(s) Unknown Unknown Problem [facility] ([facility], ) Unknown Male Problem [facility] ([facility] () Encounters Encounter Providers Location Date Indications Data Source(s ) Outpatient Attender: Sally Scott NP 12/01/2021 12:0 0:00 AM [facility] Attender: Ross Martinez/Joaquin/Monty/Shabbir monzon 09/29/2021 12:45:00 PM EST [facility] ([facility], ) Outpatient Attender: CANDIDO Carballo Office 06/2021 12:45:00 PM EST [facility] ([facility] Outpatient Attender: CANDIDO Carballo Office 04/2021 01:45:00 PM EDT [facility] ([facility] Inpatient Attender: TEDDY Hyman er: IVANA CHONG .Attender: STACEY PRAKSAttender: ROSETTA MCINTOSH MDAdmitter: ROSETTA MCINTOSH MDReferrer: TEDDY PHILLIPSConsultant: STACEY PARKS [id number] 08/09/2021 12:00:00 AM E DT - 08/17/2021 02:22:00 PM [facility] Patient discharged. Outpatient Attender: Ross Martinez/Joaquin/Monty/Shabbir monzon 06/14/2021 02:45:00 PM EDT [facility] ([facility], ) Outpatient Attender: CANDIDO Carballo Office 11:45:00 AM EDT [facility] ([facility] Outpatient Attender: CANDIDO Carballo Office 01:30:00 PM EDT [facility] ([facility] Outpatient Attender: ANKUSH ROCKSJCeciliaKELLI 12:00:00 AM EDT - 05/18/2021 02:28:16 PM EDT [facility] Outpatient Attender: Kurtis Martinez/Joaquin/Monty/Reind l 03/23/2021 02:10:00 PM EDT [facility] ([facility] Outpatient Attender: Ross Martinez/oJaquin/Monty/R eindl 03/01/2021 03:15:00 PM EDT [facility] ([facility] Outpatient Attender: Kurtis Martinez/Joaquin/Monty/Reind l 02/26/2021 11:10:00 AM EDT [facility] ([facility] Outpatient Attender: CANDIDO Carballo Office 01:30:00 PM EDT [facility] ([facility] Outpatient Attender: ANKUSH CHAN-SJCeciliaKELLI 12:00:00 AM EST - 01/14/2021 02:16:21 PM EST [facility] Outpatient Attender: CANDIDO Carballo Office 08/2021 01:00:00 PM EST [facility] ([facility] Outpatient Attender: Ross Martinez/Joaquin/Monty/R eindl 12/01/2020 01:45:00 PM EST [facility] ([facility] Outpatient Attender: CANDIDO Carballo Office 12:45:00 PM EST [facility] ([facility] Outpatient Attender: CANDIDO Carballo Office 01:00:00 PM EST [facility] ([facility] Outpatient Attender: ANKUSH ROCKSJCeciliaKELLI 12:00:00 AM EST - 10/08/2020 03:18:16 PM EST [facility] Outpatient Attender: Leigh PARRISH.KELLI-SJP.KELLI 01/2020 12:00:00 AM EST - 09/22/2020 04:48:11 PM EST [facility] Outpatient Attender: Ross Martinez/Joaquin/Monty/Shabbir monzon 09/17/2020 02:00:00 PM EDT [facility] ([facility] Outpatient Attender: CANDIDO SALAS MD [place] Office 03:00:00 PM EDT [facility] ([facility] Outpatient Attender: CANDIDO SALAS MD [place] Office 05/2020 11:00:00 AM EDT [facility] ([facility] Immunizations Vaccine Date Status Description Data Source(s) New in 2011. IIV4 08/20/2021 01:53:00 PM EDT completed [facility] ([facility] COVID-19 VACCINE Moderna 02/22/2021 12:00:00 AM EDT completed [facility] Vaccine Series Complete: YESThis Data wa s Submitted to [facility] Via SCHEDit. COVID-19 VACCINE, MRNA-1273, LNP-S (MODERNA)/PF 02/22/2021 1 2:00:00 AM EDT completed [facility] COVID-19 VACCINE Moderna 01/22/2021 12:00:00 AM EST completed [facility] Vaccine Series Complete: NOThis Data was Submitted to [facility] Via SCHEDit. COVID-19 VACCINE, MRNA-1273, LNP-S (MODERNA)/PF 01/22/2021 1 [...] 10/04/2021 12:00:00 AM EST RESPIRATORY active [facility] ([facility], ) 25 mg 09/09/2021 12:00:00 AM EDT [...] 05/20/2021 12:00:00 AM EDT ORAL active [facility] ([facility] 90 mcg/actuation 05/19/2021 12:00:00 AM EDT HFA aerosol inha ler 18 INHALE TWO PUFFS BY MOUTH EVERY 4 TO 6 HOURS NEEDED INHALE TWO PUFFS BY MOUTH EVERY 4 TO 6 HOURS NEEDED SOLD: 05/20/2021 [facility] albuterol (PROVENTIL HFA;VENTOLIN HFA) 108 (90 Base) M CG/ACT inhaler [id number] 05/18/2021 12:00:00 AM EDT activ e INHALE TWO PUFFS BY MOUTH EVERY 4 TO 6 HOURS NEEDED [facility] montelukast 10 MG Oral Tablet MONTELUKAST [...] ONE TABLET BY MOUTH TWICE A DAY [facility] montelukast 10 MG Oral Tablet Montelukast Sodium 04/13/2021 12:00:00 AM EDT active [facility] ([facility] Bacitracin 0.5 UNT/MG / Polymyxin B 10 UNT/MG Topical Ointment [Polysporin] Polysporin 02/26/2021 12:00:00 AM EDT active [facility] ([facility] ) Sinus Rinse Bottle Kit 02/26/2021 12:00:00 AM EDT active [facility] ([facility] ) 5 mg 02/16/2021 12:00:00 AM EDT [...] by mouth 2 (two) times a day [facility] 50 mg 12/31/2020 12:00:00 AM EST [...] 3TABS A DAY.DO NOT DRIVE WHILE ON [facility] 50 mg 12/31/2020 12:00:00 AM EST tablet 90 TAKE 1TAB.BY MOUTH 3X/DAY NEEDED FOR PAIN MAX=3TABS A DAY.DO NOT DRIVE WHILE ON TAKE 1TAB.BY MOUTH 3X/DAY NEEDED FOR PAIN MAX=3TABS A DAY.DO NOT DRIVE WHILE ON SOLD: 12/31/2020 [facility] tramadol hydrochloride 50 MG Oral Tablet Tramadol HCL 12/30/2020 12:00:00 AM EST ORAL active [facility] ([facility] 10 mg 12/26/2020 12:00:00 [...] ONE TABLET BY MOUTH TWICE A DAY [facility] 18 mcg 12/02/2020 12:00:00 AM EST [...] by mouth 2 (two) times a day [facility] 1.25 mcg/actuation 10/03/2020 12:00:00 AM EST [...] MOUTH TWO TIMES A DAY SOLD: 10/01/2020 [facility] Budesonide 0.25 MG/ML Inhalant Solution budesonide (PULMICORT) 0.5 MG/2ML nebulizer solution budesonide (PULMICORT) 0.5 MG/2ML nebulizer solution 09/08/2020 12:00:00 AM EDT active USE 1 VIAL VIA NEBULIZER TWO TIMES A DAY [facility] montelukast 10 MG Oral Tablet montelukast (SINGULAIR) 10 MG tablet montelukast (SINGULAIR) 10 MG tablet 09/03/2020 12:00:00 AM EDT active TAKE 1 TABLET BY MOUTH AT BEDTIME MAXIMUM DAILY DOSE 1 [facility] 60 ACTUAT Budesonide 0.16 MG/ACTUAT / fo rmoterol fumarate 0.0045 MG/ACTUAT Metered Dose Inhaler budesonide-formoterol (SYMBICORT) 160-4.5 MCG/ACT inhaler budesonide-formoterol (SYMBICORT) 160-4.5 MCG/ACT inhaler 09/01/2020 12:00:00 AM EDT active INHALE 2 PUFFS BY MOUTH TWO TIMES A DAY [facility] 10 mg 08/25/2020 12:00:00 AM EDT [...] 08/25/2020 12:00:00 AM EDT active as needed [facility] Prednisone 10 MG Oral Tablet predniSONE (DELTASONE) 10 MG tablet predniSONE (DELTASONE) 10 MG tablet 08/25/2020 12:00:00 AM EDT 10 mg active 10 mg daily [facility] Warfarin Sodium 2 MG Oral Tablet warfarin (COUMADIN) 2 MG tablet warfarin (COUMADIN) 2 MG tablet 08/12/2020 12:00:00 AM EDT 4 mg Oral aborted Take 4 mg by mouth daily [facility] Warfarin Sodium 2 MG Oral Tablet [Coumadin] Coumadin 07/22 12:00:00 AM EDT ORAL completed [facility] ([facility] albuterol (PROVENTIL HFA;VENTOLIN HFA) 108 (90 Base) M CG/ACT inhaler [id number] 08/08/2020 12:00:00 AM EDT abort ed INHALE TWO PUFFS BY MOUTH EVERY 4 TO 6 HOURS NEEDED [facility] Metformin hydrochloride 500 MG Oral Tablet metFORMIN ( GLUCOPHAGE) 500 MG tablet metFORMIN (GLUCOPHAGE) 500 MG tablet 08/04/2020 12:00:00 AM EDT aborted [facility] Warfarin Sodium 3 MG Oral Tablet warfarin (COUMADIN) 3 MG tablet warfarin (COUMADIN) 3 MG tablet 08/01/2020 12:00:00 AM EDT aborted [facility] 150 mg 07/28/2020 12:00:00 AM EDT capsule,extended releas e 24hr 90 TAKE ONE CAPSULE BY MOUTH DAILY MAXIMUM DAILY DOSE = ONE CAPSULE TAKE ONE CAPSULE BY MOUTH DAILY MAXIMUM DAILY DOSE = ONE CAPSULE SOLD: 07/22/2021 [facility] 150 mg 07/28/2020 12:00:00 AM EDT capsule,extended releas e 24hr 90 TAKE ONE CAPSULE BY MOUTH DAILY MAXIMUM DAILY DOSE = ONE CAPSULE TAKE ONE CAPSULE BY MOUTH DAILY MAXIMUM DAILY DOSE = ONE CAPSULE SOLD: 10/29/2020 [facility] 150 mg 07/28/2020 12:00:00 AM EDT capsule,extended releas e 24hr 90 TAKE ONE CAPSULE BY MOUTH DAILY MAXIMUM DAILY DOSE = ONE CAPSULE TAKE ONE CAPSULE BY MOUTH DAILY MAXIMUM DAILY DOSE = ONE CAPSULE SOLD: 01/26/2021 [facility] 150 mg 07/28/2020 12:00:00 AM EDT capsule,extended releas e 24hr 90 TAKE ONE CAPSULE BY MOUTH DAILY MAXIMUM DAILY DOSE = ONE CAPSULE TAKE ONE CAPSULE BY MOUTH DAILY MAXIMUM DAILY DOSE = ONE CAPSULE SOLD: 04/24/2021 [facility] SPIRIVA RESPIMAT 1.25 MCG/ACT AERS [id number] 07/06/2020 12:00:00 A M EDT aborted INHALE 2 PUFFS BY MO UTH ONCE A DAY [facility] 160-4.5 mcg/actuation 05/11/2020 12:00:00 AM EDT [...] T kya 40 mg by mouth daily [facility] POLYETHYLENE GLYCOL 3350 142 MG/ML Oral Solution polyethylene glycol (GLYCOLAX) 17 g packet polyethylene glycol (GLYCOLAX) 17 g packet 17 g O ral aborted Take 17 g by mouth as needed [facility] sennosides, DETENTION 8.6 MG Oral Tablet senna (SENOKOT) 8.6 MG TABS senna (SENOKOT) 8.6 MG TABS 8.6 mg Oral aborted Take 8.6 mg by mouth as needed [facility] Insurance Providers Payer name Policy type / Coverage type Policy ID Covered green party ID Covered green party's relationship to shah Policy Shah Plan Information [id number] [employer] [id number] SP [id number] [employer] [id number] SP [id number] MEDICARE [id number] SP [id number] [place] Medicare Primary [id number] Self [id number] Medicare - [facility] Medicare Primary [id number] Self [id number] Medicare - [facility] Medicare Primary [id number] Self [id number] [place] Primary [id number] Self [id number] MEDICARE [id number] SP [id number] MEDICARE A [id number] Self [id number] [place] Medicare Primary [id number] Self [id number] [place] Medicare Primary [id number] Self [id number] MEDICARE [id number] Zoe [id number] R02 MEDICARE [id number] xxxxxxxxxxx [id number] UMR U [id number] Self [id number] UMR [id number] Zoe [id number] UMR [id number] xxxxxxxxx [id number] R [facility] [id number] SP [id number] UMR O [id number] S [id number] MEDICARE C [id number] S [id number] [employer] [id number] Self [id number] [employer] Medigap Part B [id number] Self [id number] R [facility] [id number] SP [id number] R [facility] [id number] SP [id number] [employer] Medigap Part B [id number] Self [id number] [employer] PPO O [id number] S [id number] MEDICARE C [id number] S [id number] A [employer] PPO O [id number] S [id number] [employer] [id number] Self [id number] Problems, Conditions, and Diagnoses Code Display Name Description Problem Type Effective Dates Data Source(s) I48.91 Unspecified atrial fibrillation Unspecified atri al fibrillation Diagnosis 05/18/2021 01:32:59 PM EDT [facility] J43.9 Emphysema, unspecified Emphysema, unspecified Diagnosi s 10/08/2020 02:12:08 PM EST [facility] I34.0 Nonrheumatic mitral (valve) insufficienc y Nonrheumatic mitral (valve) insufficienc Diagnosis 10/08/2020 02:12:08 PM EST [facility] J43.9 Pulmonary emphysema Pulmonary emphysema [id number] 1 11/22/2019 12:00:00 AM EST [facility] I48.91 Atrial fibrillation Atrial fibrillation [id number] 1 11/22/2019 12:00:00 AM EST [facility] Z87.891 Ex-smoker Ex-smoker Problem 09/17/2020 12:00:00 AM ED T [facility] ([facility] Surgeries/Procedures Procedure Description Date Indications Data Source(s) OFFICE OUTPATIENT VISIT 25 MINUTES 09/29/2021 12:00:00 AM EST [facility] ([facility] OFFICE OUTPATIENT VISIT 25 MINUTES 09/27/2021 12:00:00 AM EST [facility] ([facility] OFFICE OUTPATIENT VISIT 25 MINUTES 08/25/2021 12:00:00 AM EDT [facility] ([facility] OFFICE OUTPATIENT VISIT 25 MINUTES 06/14/2021 12:00:00 AM EDT [facility] ([facility] OFFICE OUTPATIENT VISIT 25 MINUTES 06/04/2021 12:00:00 AM EDT [facility] ([facility] OFFICE OUTPATIENT VISIT 25 MINUTES 05/19/2021 12:00:00 AM EDT [facility] ([facility] ECG ROUTINE ECG W/LEAST 12 LDS W/I&R <td>POCT AMB EKG</td><td>Routine</td><td>05/18/2021 4:40 PM EDT</td><td> Atrial fibrillation, unspecified type</td><td> </td> 05/18/2021 04:40:00 PM EDT Atrial fibrillation, unspecified type [facility] Atrial fibrillation, unspecified type OFFICE OUTPATIENT VISIT 15 MINUTES 03/23/2021 12:00:00 AM EDT [facility] ([facility] OFFICE OUTPATIENT VISIT 25 MINUTES 03/01/2021 12:00:00 AM EDT [facility] ([facility] OFFICE OUTPATIENT NEW 30 MINUTES 02/26/2021 12:00:00 A M EDT [facility] ([facility] OFFICE OUTPATIENT VISIT 25 MINUTES 02/15/2021 12:00:00 AM EDT [facility] ([facility] BLOOD COUNT COMPLETE AUTO&AUTO DIFRNTL WBC COUNT <td>C BC AND DIFFERENTIAL</td><td>Routine</td><td>02/15/2021</td><td></td><td> </td> 02/15/2021 12:00:00 AM EDT [facility] HEPATIC FUNCTION PANEL <td>HEPATIC FUNCTION PANEL</td><td>Routine</td><td>02/15/2021</td><td></td><td> </td> 02/15/2021 12:00:00 AM EDT [facility] LIPID PANEL <td>LIPID PANEL</td><td>Rout ine</td><td>02/15/2021</td><td></td><td> </td> 02/15/2021 12:00:00 AM EDT [facility] LIPID PANEL <td>LIPID PANEL</td><td>Rout ine</td><td>02/15/2021</td><td></td><td> </td> 02/15/2021 12:00:00 AM EDT [facility] BASIC METABOLIC PANEL CALCIUM TOTAL <td>BASIC METABOLI C PANEL</td><td>Routine</td><td>02/15/2021</td><td></td><td> </td> 02/15/2021 12:00:00 AM EDT [facility] ECG ROUTINE ECG W/LEAST 12 LDS W/I&R <td>POCT AMB EKG</td><td>Routine</td><td>01/14/2021 5:14 PM EST</td><td> Atrial fibrillation, unspecified type</td><td> </td> 01/14/2021 10:14:00 PM EST Atrial fibrillation, unspecified type [facility] Atrial fibrillation, unspecified type OFFICE OUTPATIENT VISIT 25 MINUTES 12/30/2020 12:00:00 AM EST [facility] ([facility] POCT AMB EKG <td>POCT AMB EKG</td><td>Rou fortunato</td><td>10/12/2020 7:46 AM EST</td><td> Atrial fibrillation, unspecified type</td><td> </td> 10/12/2020 12:46:00 PM EST Atrial fibrillation, unspecified type [facility] Atrial fibrillation, unspecified type Capillary Blood Collection Finger, Heel, Ear Stick 10/07/2020 12:00:00 AM EST [facility] ([facility] POCT AMB EKG <td>POCT AMB EKG</td><td>Rou fortunato</td><td>09/22/2020 9:43 PM EST</td><td> Atrial fibrillation, unspecified type</td><td> </td> 09/23/2020 02:43:00 AM EST Atrial fibrillation, unspecified type [facility] Atrial fibrillation, unspecified type Capillary Blood Collection Finger, Heel, Ear Stick 09/11/2020 12:00:00 AM EDT [facility] ([facility] Capillary Blood Collection Finger, Heel, Ear Stick 08/26/2020 12:00:00 AM EDT [facility] ([facility] BLOOD COUNT COMPLETE AUTO&AUTO DIFRNTL WBC COUNT <td>C BC AND DIFFERENTIAL</td><td>Routine</td><td>08/24/2020</td><td></td><td> </td> 08/24/2020 12:00:00 AM EDT [facility] BASIC METABOLIC PANEL CALCIUM TOTAL <td>BASIC METABOLI C PANEL</td><td>Routine</td><td>08/24/2020</td><td></td><td> </td> 08/24/2020 12:00:00 AM EDT [facility] Results ID Date Data Source [id number] 10/18/2021 11:51:00 AM EST [facility] ([facility] Name Value Range Interpretation Code Description Data Izabela rce(s) Supporting Document(s) White Blood Count 11.5 10 4.0-10.0 Above high normal [facility] ( [facility] Red Blood Count 3.99 10 4.00-5.40 Below low normal [facility] ([facility] Hemoglobin 10.2 g/dL 12.0-15.5 Below low normal [facility] ( [facility] Hematocrit 36.5 % [...] resul ts) [facility] ([facility] [place] % 10.9 % 2.0-8.0 Above high normal [...] normal [facility] ( [facility] [place] # 1.3 10 0.0-0.8 Above high normal [facility] ([facility] Baso # 0.1 10 0.0-0.2 Normal (applies to non-numeric resul ts) [facility] ([facility] Eos # 0.2 10 0.0-0.5 Normal (applies to non-numeric resul ts) [facility] ([facility] ID Date Data Source [id number] 10/18/2021 11:51:00 AM EST [facility] ([facility] Name Value Range Interpretation Code Description Data Izabela rce(s) Supporting Document(s) Blood Urea Nitrogen 30 mg/dL 7-18 Above high normal [facility] ([facility] Glucose, Fasting 133 mg/dL 70-100 Above high normal M [facility] ([facility] Glomerular Filtration Rate Laboratory test result Normal (applies to non- numeric results) [facility] ([facility] ) <content>Units are mL/min/1.73 m2</content>
<content></content>
<content>Chronic Kidney Disease Staging per NKF:</content>
<content></content>
<content>Stage I & II GFR >=60 Normal to Mildly Decreased</content>
<content>Stage III GFR 30- 59 Moderately Decreased</content>
<content>Stage IV GFR 15-29 Severely Decreased</content>
<content>Stage V GFR <15 Very Little GFR Left</content>
<content>ESRD GFR <15 on LAYER UP</content>
<content></content> Creatinine For GFR 0.72 mg/dL 0.55-1.30 Normal (applies to non -numeric results) [facility] ([facility] Potassium Serum 4.3 meq/L 3.5-5.1 Normal (applies to non-numeric results) [facility] ([facility] Sodium Level 140 meq/L 136-145 Normal (applies to non-numeric res ults) [facility] ([facility] Carbon Dioxide Level 37 meq/L 21-32 Above high normal [facility] ([facility] Chloride Level 100 meq/L 98-107 Normal (applies to non-numeric r esults) [facility] ([facility] Calcium Level 8.9 mg/dL 8.8-10.2 Normal (applies to non-numeric re sults) [facility] ([facility] Anion Gap 3 meq/L 8-16 Below low normal [facility] ID Date Data Source [id number] 10/18/2021 10:58:00 AM EST [facility] ([facility] Name Value Range Interpretation Code Description Data Izabela rce(s) Supporting Document(s) CPK Creatine Phosphokinase 74 U/L 26-192 Samantha l (applies to non-numeric results) [facility] ([facility] CK-MB Value Mass 2.5 ng/mL Normal (applies to non-numeric results) [facility] ([facility] MB/CK Relative Index 3.38 Normal (applies to non-num yassine results) [facility] [facility] ([facility] [place] <content>DIAGNOSIS CRITERIA</content>
<content>MMB ng/ml Relative Index (RI)</content>
<content>NON-AMI < or = 5 N/A</content>
<content>ALANIS ZONE > 5 < or = 4</content>
<content>AMI > 5 > 4</content>
<content></content> Laboratory test finding (navigational concept) 24.0 ng/L 3 .0-53 Normal (applies to non-numeric results) [facility] ([facility] [place] ID Date Data Source [id number] 10/18/2021 10:58:00 AM EST [facility] ([facility] [place] Name Value Range Interpretation Code Description Data Izabela e(s) Supporting Document(s) Influenza A Amplification Laboratory test result Normal (applies to non- numeric results) [facility] ([facility] [place] ) Negative results do not preclude influen za or RSV virus infection and should not be used as the sole basis for treatment or other patient management decisions. RSV Amplification Laboratory test result Normal (applies to non-numeric results) [facility] ([facility] [place] ) Negative results do not preclude influen za or RSV virus infection and should not be used as the sole basis for treatment or other patient management decisions. Influenza B Amplification Laboratory test result Normal (applies to non- numeric results) [facility] ([facility] [place] ) Negative results do not preclude influen za or RSV virus infection and should not be used as the sole basis for treatment or other patient management decisions. Laboratory test finding (navigational concept) Laboratory test r esult Normal (applies to non-numeric results) [facility] ([facility] A false negative result may [...] test. DISCLAIMER: Testing was performed using the [employer] SARS-CoV-2 test. This test was developed and its performance characteristics determined by [facility]. This test has not been FDA cleared [...] or revoked sooner. ID Date Data Source [id number] 10/18/2021 10:58:00 AM EST [facility] ([facility] Name Value Range Interpretation Code Description Data Izabela rce(s) Supporting Document(s) Blood Type Laboratory test result Normal (applies to non-n umeric results) [facility] ([facility] AB Screen (Indirect Yanira)Vis Laboratory test result Normal (applies to non- numeric results) [facility] ([facility] ) ID Date Data Source [id number] 10/18/2021 10:58:00 AM EST [facility] ([facility] Name Value Range Interpretation Code Description Data Izabela rce(s) Supporting Document(s) Prothrombin Time 15.4 s 12.7-14.5 Above high normal [facility] ([facility] Inr 1.18 Normal (applies to non-numeric resul ts) [facility] ([facility] THERAPUTIC HUMAN INR VALUES INDICATIONS NORMAL RANGES PROPHYLAXIS/TREATMENT OF: VENOUS THROMBOSIS 2.0-3.0 PULMONARY EMBOLISM 2.0-3.0 PREVENTION OF SYSTEMIC EMBOLISM FROM: TISSUE HEART VALVES 2.0-3.0 ACUTE MYOCARDIAL INFARCTION 2.0-3.0 VALVULAR HEART DISEASE 2.0-3.0 ATRIAL FIBRILLATION 2.0-3.0 MECHANICAL VALVES(HIGH RISK) 2.5-3.5 RECURRENT MYOCARDIAL INFARCTION 2.5-3.5 ID Date Data Source [id number] 09/27/2021 02:41:00 PM EST [facility] ([facility] Name Value Range Interpretation Code Description Data Izabela rce(s) Supporting Document(s) Hemoglobin A1c/Hemoglobin.total in Blood 7.3 % 4.50-6.20 Above high normal [facility] ([facility] ID Date Data Source [id number] 09/27/2021 02:41:00 PM EST [facility] ([facility] Name Value Range Interpretation Code Description Data Izabela rce(s) Supporting Document(s) WBC 10.0 10E3/uL 4.1-10.9 [facility] NORMAL RANGES Age WBC RBC [...] HCT IS 5% LESS SOURCE FOR DATA: [employer] 1800 OPERATION MANUAL( AUTOMATED BLOOD COUNTS AND [...] HCT IS 5% LESS SOURCE FOR DATA: [employer] 1800 [employer]PERATION MANUAL( AUTOMATED BLOOD COUNTS AND [...] HGB 10.1 g/dL 12.0-18.0 Below low normal [facility] ( [facility] NORMAL RANGES Age [...] HCT IS 5% LESS SOURCE FOR DATA: [employer] 1800 OPERATION MANUAL( AUTOMATED BLOOD COUNTS AND [...] HCT IS 5% LESS SOURCE FOR DATA: [employer] 1800 OPERATION MANUAL( AUTOMATED BLOOD COUNTS AND [...] HCT IS 5% LESS SOURCE FOR DATA: [employer] 1800 [employer]PERATION MANUAL( AUTOMATED BLOOD COUNTS AND [...] MCH 25.6 pg 26.0-32.0 Below low normal [facility] ( [facility] NORMAL RANGES [...] 2-19 YEARS EXCLUSIVE. PLT 315 10E3/uL 140-440 [facility] ([facility] NORMAL RANGES Age WBC [...] HCT IS 5% LESS SOURCE FOR DATA: [employer] 1800 OPERATION MANUAL( AUTOMATED BLOOD COUNTS AND [...] HCT IS 5% LESS SOURCE FOR DATA: [employer] 1800 OPERATION MANUAL( AUTOMATED BLOOD COUNTS AND [...] 2-19 YEARS EXCLUSIVE. RDW-CV 13.9 % 11.5-14.5 [facility] ([facility] NORMAL RANGES [...] HCT IS 5% LESS SOURCE FOR DATA: [employer] DYN 1800 OPERATION MANUAL( AUTOMATED BLOOD COUNTS [...] Lym% 9.8 % 10.0-58.5 Below low normal [facility] ( [facility] NORMAL RANGES [...] HCT IS 5% LESS SOURCE FOR DATA: [employer] 1800 OPERATION MANUAL( AUTOMATED BLOOD COUNTS AND [...] HCT IS 5% LESS SOURCE FOR DATA: [employer] 1800 [employer]PERATION MANUAL( AUTOMATED BLOOD COUNTS AND [...] 2-19 YEARS EXCLUSIVE. Lym# 1.0 10E3/uL 0.6-4.1 [facility] ([facility] NORMAL RANGES Age WBC [...] HCT IS 5% LESS SOURCE FOR DATA: [employer] 1800 OPERATION MANUAL( AUTOMATED BLOOD COUNTS AND [...] HCT IS 5% LESS SOURCE FOR DATA: [employer] 1800 OPERATION MANUAL( AUTOMATED BLOOD COUNTS AND [...] YEARS EXCLUSIVE. MXD# 0.6 10E3/uL 0.0-1.8 [facility] ([facility] NORMAL RANGES Age WBC [...] HCT IS 5% LESS SOURCE FOR DATA: [employer] 1800 OPERATION MANUAL( AUTOMATED BLOOD COUNTS AND [...] HCT IS 5% LESS SOURCE FOR DATA: [employer] 1800 OPERATION MANUAL( AUTOMATED BLOOD COUNTS AND [...] HCT IS 5% LESS SOURCE FOR DATA: [employer] 1800 OPERATION MANUAL( AUTOMATED BLOOD COUNTS AND [...] 2-19 YEARS EXCLUSIVE. ID Date Data Source [id number] 09/27/2021 02:41:00 PM EST [facility] ([facility] Name Value Range Interpretation Code Description Data Izabela rce(s) Supporting Document(s) Chol 157 mg/dL 0-200 [facility] ([facility] NORMAL RANGES [...] HCT IS 5% LESS SOURCE FOR DATA: [employer] 1800 OPERATION MANUAL( AUTOMATED BLOOD COUNTS AND [...] HCT IS 5% LESS SOURCE FOR DATA: [employer] 1800 OPERATION MANUAL( AUTOMATED BLOOD COUNTS AND [...] HCT IS 5% LESS SOURCE FOR DATA: [employer] DYN 1800 OPERATION MANUAL( AUTOMATED BLOOD COUNTS [...] 2-19 YEARS EXCLUSIVE. Cho/HDL Ratio 2.2 CALC [facility] ([facility] NORMAL RANGES Age WBC RBC HGB [...] HCT IS 5% LESS SOURCE FOR DATA: [employer] 1800 OPERATION MANUAL( AUTOMATED BLOOD COUNTS AND [...] 2-19 YEARS EXCLUSIVE. ID Date Data Source [id number] 09/27/2021 02:41:00 PM [facility] ([facility] Name Value Range Interpretation Code Description Data Izabela rce(s) Supporting Document(s) Glu 177 mg/dL 70-110 Above high normal [facility] ([facility] NORMAL RANGES Age WBC RBC [...] HCT IS 5% LESS SOURCE FOR DATA: [employer] 1800 OPERATION MANUAL( AUTOMATED BLOOD COUNTS AND [...] 2-19 YEARS EXCLUSIVE. Creat 0.8 mg/dL 0.5-1.0 [facility] ([facility] NORMAL RANGES [...] HCT IS 5% LESS SOURCE FOR DATA: [employer] 1800 OPERATION MANUAL( AUTOMATED BLOOD COUNTS AND [...] 2-19 YEARS EXCLUSIVE. BUN/Creatinine Ratio 35.5 CALC [facility] ([facility] NORMAL RANGES Age [...] HCT IS 5% LESS SOURCE FOR DATA: [employer] 1800 OPERATION MANUAL( AUTOMATED BLOOD COUNTS AND [...] 27 mg/dL 8-23 Above high normal [facility] ([facility] NORMAL RANGES Age [...] HCT IS 5% LESS SOURCE FOR DATA: [employer] 1800 OPERATION MANUAL( AUTOMATED BLOOD COUNTS AND [...] 2-19 YEARS EXCLUSIVE. K 5.0 mmol/L 3.5-5.1 [facility] ([facility] NORMAL RANGES [...] HCT IS 5% LESS SOURCE FOR DATA: [employer] 1800 OPERATION MANUAL( AUTOMATED BLOOD COUNTS AND [...] HCT IS 5% LESS SOURCE FOR DATA: [employer] 1800 OPERATION MANUAL( AUTOMATED BLOOD COUNTS AND [...] YEARS EXCLUSIVE. CL 98.7 mmol/L 98.0-107.0 [facility] ([facility] NORMAL RANGES Age [...] HCT IS 5% LESS SOURCE FOR DATA: [employer] 1800 OPERATION MANUAL( AUTOMATED BLOOD COUNTS AND [...] HCT IS 5% LESS SOURCE FOR DATA: [employer] 1800 OPERATION MANUAL( AUTOMATED BLOOD COUNTS AND [...] HCT IS 5% LESS SOURCE FOR DATA: [employer] 1800 OPERATION MANUAL( AUTOMATED BLOOD COUNTS AND [...] 2-19 YEARS EXCLUSIVE. Alb 4.2 g/dL 3.4-4.8 [facility] ([facility] NORMAL RANGES [...] HCT IS 5% LESS SOURCE FOR DATA: [employer] 1800 OPERATION MANUAL( AUTOMATED BLOOD COUNTS AND [...] HCT IS 5% LESS SOURCE FOR DATA: [employer] 1800 OPERATION MANUAL( AUTOMATED BLOOD COUNTS AND [...] 2-19 YEARS EXCLUSIVE. A/G Ratio 2.9 CALC [facility] ([facility] NORMAL RANGES [...] HCT IS 5% LESS SOURCE FOR DATA: [employer] DYN 1800 OPERATION MANUAL( AUTOMATED BLOOD COUNTS [...] 2-19 YEARS EXCLUSIVE. Alp 55.0 U/L 35-129 [facility] ([facility] NORMAL RANGES [...] HCT IS 5% LESS SOURCE FOR DATA: [employer] 1800 OPERATION MANUAL( AUTOMATED BLOOD COUNTS AND [...] YEARS EXCLUSIVE. Alt (SGPT) 13 U/L 0-41 [facility] ([facility] NORMAL RANGES [...] HCT IS 5% LESS SOURCE FOR DATA: [employer] 1800 OPERATION MANUAL( AUTOMATED BLOOD COUNTS AND [...] 2-19 YEARS EXCLUSIVE. Tbili 0.25 mg/dL 0.0-1.2 [facility] NORMAL RANGES Age WBC [...] HCT IS 5% LESS SOURCE FOR DATA: [employer] 1800 OPERATION MANUAL( AUTOMATED BLOOD COUNTS AND [...] YEARS EXCLUSIVE. Ast (Sgot) 12 U/L 0-40 [facility] NORMAL RANGES Age WBC [...] HCT IS 5% LESS SOURCE FOR DATA: [employer] 1800 OPERATION MANUAL( AUTOMATED BLOOD COUNTS AND [...] HCT IS 5% LESS SOURCE FOR DATA: [employer] 1800 OPERATION MANUAL( AUTOMATED BLOOD COUNTS AND [...] 2-19 YEARS EXCLUSIVE. Anion Gap 16 mmol/L [facility] ([facility] NORMAL RANGES [...] HCT IS 5% LESS SOURCE FOR DATA: [employer] DYN 1800 OPERATION MANUAL( AUTOMATED BLOOD COUNTS [...] HCT IS 5% LESS SOURCE FOR DATA: [employer] 1800 OPERATION MANUAL( AUTOMATED BLOOD COUNTS AND [...] INDIVIDUALA AGED 2-19 YEARS EXCLUSIVE. eGFR Non-Afr. Ecuadorean 70 # [facility] ([facility] NORMAL RANGES Age WBC [...] HCT IS 5% LESS SOURCE FOR DATA: [employer] 1800 OPERATION MANUAL( AUTOMATED BLOOD COUNTS AND [...] 2-19 YEARS EXCLUSIVE. ID Date Data Source [id number] 08/17/2021 08:08:45 PM EDT [facility] Name Value Range Interpretation Code Description Data Izabela rce(s) Supporting Document(s) Discharge Summary [facility] KBJLQw0sBvKIQkFb54/YQPngPMUbn8XoULkcPGf7BMdiZHBfX1DrAFB2bZ8cWHC0OBwCEzKtMuNsPNJ6 m [file] AgICAgICAgICAgICAgICAgICAgICAgICAgICAgICAgICAgICAgICAgICAgICAgICAgICAgICAgICAgIC CiVLWyYDArRFKbGAYyNSZoQCFaKGJiFTQhBRBdFT4X ICAgICAgICAgICAgICAgICAgICAgICAgICAgICAgICAgICAgICAgICAgICAgICAgICAgICAgICAgICAg FXXsCHYcZOLaBHYpBRZeBXRoOTWiAMByKBXmJHGkVSIvVUAfRVTwAH3GCFLfKIUrTIZaGAQeEXTaIBGp ICAgICAgICAgICAgICAgICAgICAgICAgICAgICAgIC DeJBPrYVNcRPVtEVTpJIHwECNfPELzKNBkVYUcHIMoKURmGXWoSXUcDYToBXCmMAHwCT6HLWScVUHlDS AgICAgICAgICAgICAgICAgICAgICAgICAgICAgICAgICAgICAgICAgICAgICAgICAgICAgICAgICAgIC AgICAgICAgICAgICAgICAgICAgICAgICAgICAgICAg NK1HLALiHCLlVENkGFYbWUToRWYvITClYFKyVRRjRXEmWXFwLXBsUXIeDMMtCXKfSFUeAJNhEVDeLAEs CRGfAFMyUVKzIIMmGEUkGUTfUGZvSUHgCUIwPESpVLTnNZMjNTMiYRXdBO9DCQGoKBBsYRErJQTrDBVc ICAgICAgICAgICAgICAgICAgICAgICAgICAgICAgIC LvQZTqHSYgWVGjHUCkUTBdMCGcMSSqMQWfIBTcWUYcHNSvQMQzGUArZBKkXOVzDBAmYCQbCF8RJFVtDS AgICAgICAgICAgICAgICAgICAgICAgICAgICAgICAgICAgICAgICAgICAgICAgICAgICAgICAgICAgIC AgICAgICAgICAgICAgICAgICAgICAgICAgICAgICAg EFCbVB9AWEZuDYErJYMeTBLdNNNvDMLwLYLmTCDeMMRkAOLaXYLtEPFyETIaNLLmCBDwRDUaYPZuONSz CMIxYDLkOJIeOLHuQUQoUCYyLEDwQBQgWVEgAPIfIJIkHXPyCTOhWUIoUIOgNH4FRNQgDDCkFQMsKATk ICAgICAgICAgICAgICAgICAgICAgICAgICAgICAgIC JwYPVlQPCdRBWbWSFcUQJmXNJrOKBoGZHnYOMqVNWxTYMjXANdXUWuHHDuQYBkGSVcUGHqCHJtJT4OHV AgICAgICAgICAgICAgICAgICAgICAgICAgICAgICAgICAgICAgICAgICAgICAgICAgICAgICAgICAgIC AgICAgICAgICAgICAgICAgICAgICAgICAgICAgICAg QUItESTsOJ4MRW12hIVkm3X9MJGkIH0jmmk/Ig4MUVvdizLswRWoUC3QJpPwAF6xpb7QSfMaGS9lxo7W BOzNEnYwT3L8cEDfTPKmIRYWXqTtX03xZFayHo92FWayDOSjCgCmJFw3Zy2FQwOqD9feAIWxZuW6ATQj GyR9IOYrCwM9LRLmHnTzAYKdOYLfLFElTPGAIEQ3HH CgCyLwFlJtEVYpARwgCVFGGUVpYRQmPmOdCpBaWAQeUkUpEPUUUC5THdWtF8TaqR74FOHwECd+Pg0KZW 7ti0WbVRa2JrGfIL1xeh1DUCaSAaYfJ8FhjrR0CGZ6XIMeCc1QIYGlYUIqsAX3BHTlXENZVmUtI4GnmZ 54QCNOVt9+VXtuciZeEybLTxM4BMDrh4MmYQq8LZ3X XDFjUNm3pZBkAGxfA8bcfvhzXQQ4hX4fsccrXnqpUpdaoCybA9nxIYC7lAXlFT2WRxGaMRSkHM0cWP9w QHMaVHXjRfS8VSBBLC6TUTPsVQYcaDEiJNYlYHYVTC6GUXagRSB3MCUypaEyqIVqCMebFZ5KAZYufdFl NTMgMCBSDQo+Iq5STV6it1WwFDy9WGHnQD5rfo1UTB hCVcNpP2M4hZTpR6B1CQihSc1LGLZlQGXgQVCtRPZJURfdBM7KMI9kdhO1VD5NkNRoWMHcSGDjlVTjNA w3B79bnQJvQWlwLG2TWIC+Quentin+Qm1FDDDxCVIhKSApHaNgUHUIYoLqG4PiI7EIf3AwE3OoZN14kEmhrw GlUTnzIX6VND2xSPKjIVGLCL2YaRErwW7hfrX0UxMj IYVQOqXqZ76zoTRdOWNbXWWqHUZwQm1GYUAtF7LgueBiqRspcrSbQMQzSLGNQY1YWUfjwgGdrIDtnSao KD01yYseMP6DWp1THlMaOY9msn5NiAQsWg4IWSN2Dm9QGYQcYGOcXWNnVZU9MBLeNiSzQZlbGFUmZIUu TKS6XPNsSUAlCA1KPyXhHKWyEIyiBvVvVVQkTFPcrl 6FJAKfEKG2GSbtJnPsXECvCSWwILnsPOWvTCGxOTY6ZFBnKMUuGT4HGxVeITEtQKS7KAnzGQEjNCPfyp 8NKFNnCVPhIqZlZSWtTNBpTPXwHXsqQCYeNDT2HqQ6PMZpAHZuUI1LTzGqINBrAUW3ZBkuERFfRZRacp 1JUJKzAGCpLON5OtLbBWLhRXJlCGkcMLPoLMW8Pzj7 NVKgLELcVY5QEaKgLEKeYMSyCBjfJUYfZEXupq3XKWAyFIJkDLYzXVYwKGCrVTHxIHtfRELeUMV9NKA4 CEJkEIXgRF0NMoCcNMZqQOu8TZAoBZLtXMXccs6OLVNzEDGgNZX7ZRDmNGUxPRXtNFqiJJBvSKM8YpT3 LNJtBZNnTU6YZkUiBYXuKxdaUvcfHYBaOJCnpp7OUH ZoXKPkJDD7DMMtKMGlYBNzKWekZPZhQCD2ANj1JKXsDFXoUV7IHoBkOJCyUjYrLGRlVXRfCRItkm6ICD SiLXXnRCA5YZWcHIYoRKDlUYgqRIVnGHU6KtcwQGBnHDPqRK5EArOaCMAaHUPrHFrdGAEySMKuqt7IAA UkDJL0CHWsMlRhILXpBPMgDMzkGPGrEAVwCQOkHFQm WLSxNX7VNdUuDCWxOTV8ETNlSXCrBQAdob8MSIIgHKG6AjdoIlCeLYQkUYYzBFcuDTFhPLXvLPRuTHMs HIOdIT4VBlDtRHAlDDWfVYCrQCEvECQatl8MTRVyBTN7ZOQ0ZDVvSNJaPQGiVGezAKAgHLV0EvW8FTXa XACyLA9YNsCdFBBlNIO6MkVsXHCnEZLuvs1LCHFmFO G1VcP3WDFyQSKwWZHmRDuqNRIvLIG3FPw5ORNeJIRgMG7KMzTdNISgWJJ0TTVgCUJxGGXsxg7BDAPrTZ F7Nhx4TAMkXLUeLEUkRQkgBHOmPYT2CMYeOCSvZDFoLS5YUxTzFSZhLXruCaBlEPXpGTGntl7UDMIuPP E3Ynb6PIQfLZQgLDIlGZaoWFEfDJFjHnz5AROsDGHm MR5TJuQkSTWbWPG3ZOZjOHWkRKIsvd1LRRHhOSG5Ghf2GFSsONPbMHYgJKyuXZXzLIAxGAb2IXHgWTTe IN7RHxTaDLGpPZP8KNYeLZEiDTVeby7VZGDgQSI6LPLtFUEfJPOcQHWhMAgyHLFtYCI9ZpP7YSPiGYBj WU2ILfKvWQOnGIGiBHFxXQKfGREomt1HTDPbBUF1Ii AlYZKzZMAhGKIcIOqiOECsHPU6CLJ5UHXmEOVyBO2ZHfQaEZUiHNC7SDGjIZSlBJCykl8CHWCuBNS6Iu o3HVDgCPWxWEVcEZkkMUSpLKF4ZJqvRQKrXAFvYT9QVnYqHXXcCHcbXEHpOIJtXQFvvl1EYPPpEAP9YZ A1MESxMRLaCIMnRPwmTBEfMZX5PpW8IOYxVXZxAZ4F IaKxYDuxYGCSOcg4INcsN1j3HHV2Db3HV3Qaw3PmZTSpBXGKSVyqZM1oqyAwRYSdNf6UP5eHJwbbAZUd GyJfOVOpBmDrBZV8WFlbXyM5YSJ9VCAnSWB6IJ6lHIN7ELBwCbS0CVSrOTP8JMoePNG2IUNsXJL3VhBw DlH2PjNmHC5LTj6LHyA6USZ6uKSlYj1VTNh8JmuOFhCbWB6OEHv= ID Date Data Source [id number] 08/17/2021 12:39:43 PM [facility] Value Range Interpretation Code Description Data Izabela rce(s) Supporting Document(s) Glucose [Mass/volume] in Capillary blood by Glucometer 163 mg/dL 70- 140 [facility] ID Date Data Source [id number] 08/17/2021 11:31:49 AM [facility] Value Range Interpretation Code Description Data Izabela rce(s) Supporting Document(s) Glucose [Mass/volume] in Capillary blood by Glucometer 208 mg/dL 70- 140 [facility] ID Date Data Source [id number] 08/17/2021 10:28:25 AM [facility] Value Range Interpretation Code Description Data Izabela rce(s) Supporting Document(s) Glucose [Mass/volume] in Capillary blood by Glucometer 149 mg/dL 70- 140 [facility] ID Date Data Source [id number] 08/17/2021 09:43:02 AM [facility] Value Range Interpretation Code Description Data Izabela rce(s) Supporting Document(s) Glucose [Mass/volume] in Capillary blood by Glucometer 94 mg/dL 70- 140 [facility] ID Date Data Source [id number] 08/17/2021 08:40:31 AM [facility] Name Value Range Interpretation Code Description Data Izabela rce(s) Supporting Document(s) Glucose [Mass/volume] in Capillary blood by Glucometer 80 mg/dL 70- 140 [facility] ID Date Data Source [id number] 08/17/2021 08:40:31 AM [facility] Name Value Range Interpretation Code Description Data Izabela rce(s) Supporting Document(s) Glucose [Mass/volume] in Capillary blood by Glucometer 64 mg/dL 70- 140 L [facility] ID Date Data Source [id number] 08/17/2021 08:57:30 AM [facility] Name Value Range Interpretation Code Description Data Izabela rce(s) Supporting Document(s) Bicarbonate [Moles/volume] in Serum 29 mmol/L 22-29 [facility] Chloride [Moles/volume] in Serum or Plasma 97 mmol/L 98-107 L [facility] Creatinine [Mass/volume] in Serum or Plasma 0.67 mg/dL 0.50-0.90 [facility] Glucose [Mass/volume] in Serum or Plasma 72 mg/dL 70-140 [facility] Potassium [Moles/volume] in Serum or Plasma 3.9 mmol/L 3.4-5.1 [facility] Sodium [Moles/volume] in Serum or Plasma 136 mmol/L 136-145 [facility] Urea nitrogen [Mass/volume] in Serum or Plasma 24 mg/dL 8-23 H [facility] Anion gap 3 in Serum or Plasma 10 mmol/L 8-15 [facility] Osmolality of Serum or Plasma by calculation 284 mosm/kg 275-300 [facility] Creatinine/Urea nitrogen [Mass Ratio] in Serum or Plasma 36 [facility] Calcium [Mass/volume] in Serum or Plasma 9.3 mg/dL 8.8-10.2 [facility] Glomerular filtration rate/1.73 sq M pre dicted among non-blacks [Volume Rate/Area] in Serum or Plasma by Creatinine-based formula (MDRD) 82 mL/min/1.73m2 >60 [facility] Glomerular filtration rate/1.73 sq M pre dicted among blacks [Volume Rate/Area] in Serum or Plasma by Creatinine-based formula (MDRD) >60 [facility] ID Date Data Source [id number] 08/17/2021 10:14:18 AM EDT [facility] Value Range Interpretation Code Description Data Izabela rce(s) Supporting Document(s) Leukocytes [#/volume] in Blood by Automated count 8.2 10*3/uL 4-10 [facility] Erythrocytes [#/volume] in Blood by Automated count 3.76 10*6/uL 4.1- 5.3 L [facility] Hemoglobin [Mass/volume] in Blood 10.4 g/dL 11.5-15.5 L [facility] Hematocrit [Volume Fraction] of Blood by Automated count 32.1 % 3 6-45 L [facility] Erythrocyte mean corpuscular volume [Entitic volume] by Auto mated count 85.4 fL 80-96 [facility] Erythrocyte mean corpuscular hemoglobin [Entitic mass] by Automated count 27.6 pg 27-33 [facility] Erythrocyte mean corpuscular hemoglobin concentration [Mass/volume] by Automated count 32.3 g/dL 32.0-36.0 [facility] width [Ratio] by Automated count 15.4 % 11.5-14.5 H [facility] Platelets [#/volume] in Blood by Automated count 306 10*3/uL 150-400 [facility] UnconfirmedConfirmed ID Date Data Source [id number] [facility] Code Description Data Izabela rce(s) Supporting Document(s) Glucose [Mass/volume] in Capillary blood by Glucometer 200 mg/dL 70- 140 H [facility] ID Date Data Source [id number] 08/16/2021 06:57:52 PM [facility] Value Range Interpretation Code Description Data Izabela rce(s) Supporting Document(s) Glucose [Mass/volume] in Capillary blood by Glucometer 178 mg/dL 70- 140 [facility] ID Date Data Source [id number] 08/16/2021 06:38:11 PM [facility] Value Range Interpretation Code Description Data Izabela rce(s) Supporting Document(s) Glucose [Mass/volume] in Capillary blood by Glucometer 139 mg/dL 70- 140 [facility] ID Date Data Source [id number] 08/16/2021 05:59:06 PM [facility] Value Range Interpretation Code Description Data Izabela rce(s) Supporting Document(s) Glucose [Mass/volume] in Capillary blood by Glucometer 115 mg/dL 70- 140 [facility] ID Date Data Source [id number] 08/16/2021 05:30:51 PM [facility] Value Range Interpretation Code Description Data Izabela rce(s) Supporting Document(s) Glucose [Mass/volume] in Capillary blood by Glucometer 81 mg/dL 70- 140 [facility] ID Date Data Source [id number] 08/16/2021 05:16:39 PM [facility] Value Range Interpretation Code Description Data Izabela rce(s) Supporting Document(s) Glucose [Mass/volume] in Capillary blood by Glucometer 63 mg/dL 70- 140 [facility] ID Date Data Source [id number] 08/16/2021 05:16:39 PM [facility] Value Range Interpretation Code Description Data Izabela rce(s) Supporting Document(s) Glucose [Mass/volume] in Capillary blood by Glucometer 54 mg/dL 70- 140 [facility] ID Date Data Source [id number] 08/16/2021 11:51:30 AM [facility] Value Range Interpretation Code Description Data Izabela rce(s) Supporting Document(s) Glucose [Mass/volume] in Capillary blood by Glucometer 186 mg/dL 70- 140 [facility] ID Date Data Source [id number] 08/16/2021 08:05:04 AM [facility] Value Range Interpretation Code Description Data Izabela rce(s) Supporting Document(s) Glucose [Mass/volume] in Capillary blood by Glucometer 86 mg/dL 70- 140 [facility] ID Date Data Source [id number] 08/16/2021 08:54:19 AM [facility] Value Range Interpretation Code Description Data Izabela rce(s) Supporting Document(s) Leukocytes [#/volume] in Blood by Automated count 10.8 10*3/uL 4-10 H [facility] Erythrocytes [#/volume] in Blood by Automated count 3.73 10*6/uL 4.1- 5.3 L [facility] Hemoglobin [Mass/volume] in Blood 10.1 g/dL 11.5-15.5 L [facility] Hematocrit [Volume Fraction] of Blood by Automated count 31.8 % 3 6-45 L [facility] Erythrocyte mean corpuscular volume [Entitic volume] by Auto mated count 85.4 fL 80-96 [facility] Erythrocyte mean corpuscular hemoglobin [Entitic mass] by Automated count 27.2 pg 27-33 [facility] Erythrocyte mean corpuscular hemoglobin concentration [Mass/volume] by Automated count 31.9 g/dL 32.0-[facility] width [Ratio] by Automated count 15.3 % 11.5-14.5 H [facility] Platelets [#/volume] in Blood by Automated count 331 10*3/uL 150-400 [facility] Differential cell count method - Blood [facility] Neutrophils/100 leukocytes in Blood by Automated count 71 % [facility] Lymphocytes/100 leukocytes in Blood by Automated count 16 % [facility] Monocytes/100 leukocytes in Blood by Automated count 10 % [facility] Eosinophils/100 leukocytes in Blood by Automated count 2 % [facility] Basophils/100 leukocytes in Blood by Automated count 1 % [facility] Neutrophils [#/volume] in Blood by Automated count 7.66 10*3/uL 1.8-7 .0 H [facility] Lymphocytes [#/volume] in Blood by Automated count 1.70 10*3/uL 1.2-4 .0 [facility] Monocytes [#/volume] in Blood by Automated count 1.10 10*3/uL 0-0.8 H [facility] Eosinophils [#/volume] in Blood by Automated count 0.23 10*3/uL 0-0.5 [facility] Basophils [#/volume] in Blood by Automated count 0.09 10*3/uL 0-0.2 [facility] Nucleated erythrocytes/100 leukocytes [Ratio] in Blood by Automated count 0 /100{WBCs} 0-0 [facility] ID Date Data Source [id number] 08/16/2021 01:47:22 PM EDT [facility] Name Value Range Interpretation Code Description Data Izabela rce(s) Supporting Document(s) Magnesium [Mass/volume] in Serum or Plasma 2.0 mg/dL 1.6-2.4 [facility] ID Date Data Source [id number] 08/16/2021 01:47:22 PM EDT [facility] Name Value Range Interpretation Code Description Data Izabela rce(s) Supporting Document(s) Bicarbonate [Moles/volume] in Serum 30 mmol/L 22-29 H [facility] Chloride [Moles/volume] in Serum or Plasma 100 mmol/L 98-107 [facility] Creatinine [Mass/volume] in Serum or Plasma 0.69 mg/dL 0.50-0.90 [facility] Glucose [Mass/volume] in Serum or Plasma 69 mg/dL 70-140 L [facility] Potassium [Moles/volume] in Serum or Plasma 3.9 mmol/L 3.4-5.1 [facility] Hemolyzed Sodium [Moles/volume] in Serum or Plasma 139 mmol/L 136-145 [facility] Urea nitrogen [Mass/volume] in Serum or Plasma 26 mg/dL 8-23 H [facility] Anion gap 3 in Serum or Plasma 9 mmol/L 8-15 [facility] Osmolality of Serum or Plasma by calculation 291 mosm/kg 275-300 [facility] Creatinine/Urea nitrogen [Mass Ratio] in Serum or Plasma 38 [facility] Calcium [Mass/volume] in Serum or Plasma 8.6 mg/dL 8.8-10.2 L [facility] Glomerular filtration rate/1.73 sq M pre dicted among non-blacks [Volume Rate/Area] in Serum or Plasma by Creatinine-based formula (MDRD) 81 mL/min/1.73m2 >60 [facility] Glomerular filtration rate/1.73 sq M pre dicted among blacks [Volume Rate/Area] in Serum or Plasma by Creatinine-based formula (MDRD) >60 [facility] ID Date Data Source [id number] 08/16/2021 01:47:22 PM EDT [facility] Name Value Range Interpretation Code Description Data Izabela rce(s) Supporting Document(s) Phosphate [Mass/volume] in Serum or Plasma 4.1 mg/dL 2.5-4.5 [facility] ID Date Data Source [id number] 08/15/2021 09:13:08 PM EDT [facility] Name Value Range Interpretation Code Description Data Izabela rce(s) Supporting Document(s) Glucose [Mass/volume] in Capillary blood by Glucometer 209 mg/dL 70- 140 H [facility] ID Date Data Source [id number] 08/15/2021 05:52:12 PM EDT [facility] Name Value Range Interpretation Code Description Data Izabela rce(s) Supporting Document(s) Glucose [Mass/volume] in Capillary blood by Glucometer 195 mg/dL 70- 140 H [facility] ID Date Data Source [id number] 08/15/2021 12:52:57 PM EDT [facility] Name Value Range Interpretation Code Description Data Izabela rce(s) Supporting Document(s) Glucose [Mass/volume] in Capillary blood by Glucometer 151 mg/dL 70- 140 H [facility] ID Date Data Source [id number] 08/15/2021 10:57:12 AM EDT [facility] Name Value Range Interpretation Code Description Data Izabela rce(s) Supporting Document(s) ED Provider Note [facility] KXZLBm0vFtMDTlKx94/VAHktYEFvp4HmSTjaXNl1NAjwMOSkP8OfBKL3vF1eCJC1PMmFDfQlLeKzWRW3 lbm [file] CGHFBGusZB6SWG3szqQ6CU4VoIGcFTPlWZVrcZBjXJp8S59ieJAwXKdeXQ4KJYK+Quentin+Zw8AUGUkADOp DAUwBrXpSKOUFySrJ2WdM5VFa2SnL4SmHM82tEfmkzIlSTxzDN1QQJ7zZCRyQKIHIY2GzRZtqP0klwK9 QBTmDOPUSbPoA77zfKXrDRBdXBSrPVGkTq3TUNJgU0 XtfzJfpMuzalVmDOFxILQVUG8FHPgnafFhzJAhoIjlCO65lWxlBV0TEs7JPnBdAU4yie8GnXHtZa8ZOP N1WK4RZJFhZFGcUMIxKLH5ZVCcPuMvMEabZGClERBdWQT1QVDxNEXbQZ1ZFaHyWMPkLLC4ODGrPUVpPF Sfrp5GHQGqBGI7YMSxNvVzUOHgASCfLLkzKPHyIQOo VSU5XVUkZFAjCY3NWfVuRYVtKFT1ROmrUQRfWBKkkx1BTISwQETiSlagIjDvWPFuXBZuKBqyNLFmZVC3 WGn3EXBjISVsBP0NPbNqZNUhIXNvLPLnEZRbTZGmmd5GIPKbTELeSQN8CFBdBANoJZDdOBrfLMUdMVZ8 KYcgRQLpILXhUC1SWoUfQYHyAJOyEEZpLVRyMSMhub 3QDVJbRXSbLjY2ZWMgWDRmYKFdXNhmFMYeGNR9HFF0CBAxYQZwFF4HFrWyHFUkVLXpNzSuFYUwFXFfqa 1GTDYeYXZwNPC9EzJhEIKdFHNyQAqhLFUyAVH5LRmjGNWpARWnDI5GBiIeLEHiBnU1SFCwRVAtSPEymu 3IKNLjRWBpUDn8DzAxZOKoRZKhWXodTAJwAKM4Fdt8 TYUqCZYfAB8LSyMsQTIpOnF6XVWiUWWnEKEwwt5GWNIbHNFpPNW3QHBqUVKhMMFfYTdpFYCpLCC0Ewf1 TNNuVMCtAE2SXlDhRYSqPqK2HKArHYOeMILcdo2VQJMpKSVaPox7NaHwWMYmXWDeHQhiDUFqBFK1YUN8 UIOeAJXcCL7DHgOdMFYnWvmbDKOhOBAeWYKdsp2AAL ZlBLIpIWB5KbYxFVYsNGQtOXarWSLoRJQ4MJb6WUEkYKXxNO9ATiVwWFUgWil6SeTdSPGmRQPenv5FBO LaGNPrEOGxIJVoXICsZCEfNPveSQWmTRV4NBX3GSEwPOLyCB2OCcJhVWMeUoF6AgVsCPKrWUBzda7IOG BxBARaUYn4YKCyHYVcCHKmQImrVZOxIPLlBNQnZBRt LPZbWT2IOmEtDCSoNFD9QTuvHFBjXOOfvh0YDZInDTZ6Oil1HlPjAXZdVAQpTAnlZTEsUALaMWz8BIUp LGSkRC9GVwMhQXQuJUFbGSHoUACmCQHefj5VTTXiXZC9WyU3AQOoRAYbNBFtNGfzYTNcCADvGAuuMABt PEHzBQ8FTkCeGUIaMROrSEIwFIFmTNInwp2FCUFdUW Z6XTA2BoRxBZWcULFfKMhfGPZmOEV8QpKyGJCyUZFvRN4CPkYuFMKcPDO3ZRNyTEZpTMCcik6MVMZvWA O4SSr7HlXoEZStBHUyKIojZFLlBTQ8PQN0COZdURHyDO0NYgByDJQjLCDrWOmuAFOsIMXoqi7HyRYlcO tdki2IIKfQSi9YdJdmBHY1AHkxVy4ttUR4XfRoQBED Sk5DezQwQVMwWOZBWPldDAYjEOHbGFQvNPK8UAntZdU1KZIyMTW1FTDgMJF1BtUhOAN6OaJ7JIDqCnC9 UYJkT2J4AIYwJOGwQJd4QSJpPlQeNRO3QWs+EL5jRSu+Cg9Ti9QqmdI0prJiKAt2LvK2Lx4QIEIVE8XJ Cg== ID Date Data Source [id number] 08/15/2021 08:45:49 AM EDT [facility] Value Range Interpretation Code Description Data Izabela rce(s) Supporting Document(s) Glucose [Mass/volume] in Capillary blood by Glucometer 90 mg/dL 70- 140 [facility] ID Date Data Source [id number] 08/14/2021 08:40:54 PM [facility] Value Range Interpretation Code Description Data Izabela rce(s) Supporting Document(s) Glucose [Mass/volume] in Capillary blood by Glucometer 220 mg/dL 70- 140 H [facility] ID Date Data Source [id number] 08/14/2021 05:35:18 PM [facility] Value Range Interpretation Code Description Data Izabela rce(s) Supporting Document(s) Glucose [Mass/volume] in Capillary blood by Glucometer 134 mg/dL 70- 140 [facility] ID Date Data Source [id number] 08/14/2021 01:18:36 PM [facility] Value Range Interpretation Code Description Data Izabela rce(s) Supporting Document(s) Glucose [Mass/volume] in Capillary blood by Glucometer 392 mg/dL 70- 140 H [facility] ID Date Data Source [id number] 08/14/2021 09:28:55 AM [facility] Name Value Range Interpretation Code Description Data Izabela rce(s) Supporting Document(s) Glucose [Mass/volume] in Capillary blood by Glucometer 122 mg/dL 70- 140 [facility] ID Date Data Source [id number] 08/14/2021 05:26:43 AM [facility] Value Range Interpretation Code Description Data Izabela rce(s) Supporting Document(s) Parathyrin.intact [Mass/volume] in Serum or Plasma 67 pg/mL 15-65 H [facility] ID Date Data Source [id number] 08/14/2021 04:58:59 AM [facility] Value Range Interpretation Code Description Data Izabela rce(s) Supporting Document(s) Leukocytes [#/volume] in Blood by Automated count 11.3 10*3/uL 4-10 H [facility] Erythrocytes [#/volume] in Blood by Automated count 3.39 10*6/uL 4.1- 5.3 L [facility] Hemoglobin [Mass/volume] in Blood 9.2 g/dL 11.5-15.5 [facility] Hematocrit [Volume Fraction] of Blood by Automated count 28.9 % 3 6-45 [facility] Erythrocyte mean corpuscular volume [Entitic volume] by Auto mated count 85.4 fL 80-96 [facility] Erythrocyte mean corpuscular hemoglobin [Entitic mass] by Automated count 27.3 pg 27-33 [facility] Erythrocyte mean corpuscular hemoglobin concentration [Mass/volume] by Automated count 32.0 g/dL 32.0-36.0 [facility] width [Ratio] by Automated count 15.2 % 11.5-14.5 [facility] Platelets [#/volume] in Blood by Automated count 333 10*3/uL 150-400 [facility] ID Date Data Source [id number] 08/14/2021 05:30:03 AM [facility] Value Range Interpretation Code Description Data Izabela rce(s) Supporting Document(s) Bicarbonate [Moles/volume] in Serum 27 mmol/L 22-29 [facility] Chloride [Moles/volume] in Serum or Plasma 100 mmol/L 98-107 [facility] Creatinine [Mass/volume] in Serum or Plasma 0.58 mg/dL 0.50-0.90 [facility] Glucose [Mass/volume] in Serum or Plasma 140 mg/dL 70-140 [facility] Potassium [Moles/volume] in Serum or Plasma 3.6 mmol/L 3.4-5.1 [facility] Sodium [Moles/volume] in Serum or Plasma 137 mmol/L 136-145 [facility] Urea nitrogen [Mass/volume] in Serum or Plasma 30 mg/dL 8-23 H [facility] Anion gap 3 in Serum or Plasma 10 mmol/L 8-15 [facility] Osmolality of Serum or Plasma by calculation 293 mosm/kg 275-300 [facility] Creatinine/Urea nitrogen [Mass Ratio] in Serum or Plasma 51 [facility] Calcium [Mass/volume] in Serum or Plasma 8.4 mg/dL 8.8-10.2 L [facility] Glomerular filtration rate/1.73 sq M pre dicted among non-blacks [Volume Rate/Area] in Serum or Plasma by Creatinine-based formula (MDRD) 86 mL/min/1.73m2 >60 [facility] Glomerular filtration rate/1.73 sq M pre dicted among blacks [Volume Rate/Area] in Serum or Plasma by Creatinine-based formula (MDRD) >60 [facility] ID Date Data Source [id number] 08/14/2021 05:30:03 AM [facility] Name Value Range Interpretation Code Description Data Izabela rce(s) Supporting Document(s) Magnesium [Mass/volume] in Serum or Plasma 2.4 mg/dL 1.6-2.4 [facility] ID Date Data Source [id number] 08/14/2021 05:30:03 AM [facility] Value Range Interpretation Code Description Data Izabela rce(s) Supporting Document(s) Phosphate [Mass/volume] in Serum or Plasma 2.6 mg/dL 2.5-4.5 [facility] ID Date Data Source [id number] 08/14/2021 05:45:33 AM [facility] Value Range Interpretation Code Description Data Izabela rce(s) Supporting Document(s) Calcidiol [Mass/volume] in Serum or Plasma 12 ng/mL >30 L [facility] ID Date Data Source [id number] 08/14/2021 02:56:05 AM [facility] Value Range Interpretation Code Description Data Izabela rce(s) Supporting Document(s) Glucose [Mass/volume] in Capillary blood by Glucometer 141 mg/dL 70- 140 H [facility] ID Date Data Source [id number] 08/14/2021 02:01:45 AM [facility] Value Range Interpretation Code Description Data Izabela rce(s) Supporting Document(s) Glucose [Mass/volume] in Capillary blood by Glucometer 192 mg/dL 70- 140 [facility] ID Date Data Source [id number] 08/14/2021 12:30:16 AM [facility] Value Range Interpretation Code Description Data Izabela rce(s) Supporting Document(s) Glucose [Mass/volume] in Capillary blood by Glucometer 382 mg/dL 70- 140 [facility] ID Date Data Source [id number] 08/13/2021 11:29:43 PM [facility] Value Range Interpretation Code Description Data Izabela rce(s) Supporting Document(s) Glucose [Mass/volume] in Capillary blood by Glucometer 296 mg/dL 70- 140 [facility] ID Date Data Source [id number] 08/13/2021 08:39:43 PM [facility] Value Range Interpretation Code Description Data Izabela rce(s) Supporting Document(s) Glucose [Mass/volume] in Capillary blood by Glucometer 312 mg/dL 70- 140 [facility] ID Date Data Source [id number] 08/13/2021 06:04:45 PM [facility] Value Range Interpretation Code Description Data Izabela rce(s) Supporting Document(s) Glucose [Mass/volume] in Capillary blood by Glucometer 245 mg/dL 70- 140 [facility] ID Date Data Source [id number] 08/13/2021 01:08:39 PM [facility] Value Range Interpretation Code Description Data Izabela rce(s) Supporting Document(s) Glucose [Mass/volume] in Capillary blood by Glucometer 181 mg/dL 70- 140 [facility] ID Date Data Source [id number] 08/13/2021 01:11:22 PM [facility] Value Range Interpretation Code Description Data Izabela rce(s) Supporting Document(s) Magnesium [Mass/volume] in Serum or Plasma 2.3 mg/dL 1.6-2.4 [facility] ID Date Data Source [id number] 08/13/2021 01:11:22 PM [facility] Name Value Range Interpretation Code Description Data Izabela rce(s) Supporting Document(s) Phosphate [Mass/volume] in Serum or Plasma 2.6 mg/dL 2.5-4.5 [facility] ID Date Data Source [id number] 08/13/2021 01:29:33 PM [facility] Name Value Range Interpretation Code Description Data Izabela rce(s) Supporting Document(s) Albumin [Mass/volume] in Serum or Plasma by Bromocresol green (BCG) dye binding method 4.0 g/dL 3.5-5.2 [facility] Bil[facility].total [Mass/volume] in Serum or Plasma 0.3 mg/dL <1.2 [facility] Calcium [Mass/volume] in Serum or Plasma 8.0 mg/dL 8.8-10.2 L [facility] Chloride [Moles/volume] in Serum or Plasma 100 mmol/L 98-107 [facility] Creatinine [Mass/volume] in Serum or Plasma 0.72 mg/dL 0.50-0.90 [facility] Glucose [Mass/volume] in Serum or Plasma 226 mg/dL 70-140 H [facility] Alkaline phosphatase [Enzymatic activity/volume] in Serum or Plasma 49 U/L 35-104 [facility] Potassium [Moles/volume] in Serum or Plasma 3.8 mmol/L 3.4-5.1 [facility] Protein [Mass/volume] in Serum or Plasma 5.8 g/dL 6.4-8.3 L [facility] Sodium [Moles/volume] in Serum or Plasma 137 mmol/L 136-145 [facility] Aspartate aminotransferase [Enzymatic activity/volume] in Serum or Plasma 15 U/L <32 [facility] Urea nitrogen [Mass/volume] in Serum or Plasma 30 mg/dL 8-23 H [facility] Confirmed Osmolality of Serum or Plasma by calculation 297 mosm/kg 275-300 [facility] Confirmed Creatinine/Urea nitrogen [Mass Ratio] in Serum or Plasma 42 [facility] Confirmed Bicarbonate [Moles/volume] in Serum 26 mmol/L 22-29 [facility] Alanine aminotransferase [Enzymatic activity/volume] in Seru m or Plasma 12 U/L <33 [facility] Anion gap 3 in Serum or Plasma 11 mmol/L 8-15 [facility] Glomerular filtration rate/1.73 sq M pre dicted among non-blacks [Volume Rate/Area] in Serum or Plasma by Creatinine-based formula (MDRD) 80 mL/min/1.73m2 >60 [facility] Glomerular filtration rate/1.73 sq M pre dicted among blacks [Volume Rate/Area] in Serum or Plasma by Creatinine-based formula (MDRD) >60 [facility] ID Date Data Source [id number] 08/13/2021 09:05:16 AM [facility] Value Range Interpretation Code Description Data Izabela rce(s) Supporting Document(s) Glucose [Mass/volume] in Capillary blood by Glucometer 131 mg/dL 70- 140 [facility] ID Date Data Source [id number] 08/13/2021 03:16:55 AM [facility] Value Range Interpretation Code Description Data Izabela rce(s) Supporting Document(s) Glucose [Mass/volume] in Capillary blood by Glucometer 80 mg/dL 70- 140 [facility] ID Date Data Source [id number] 08/12/2021 11:33:06 PM [facility] Value Range Interpretation Code Description Data Izabela rce(s) Supporting Document(s) Glucose [Mass/volume] in Capillary blood by Glucometer 282 mg/dL 70- 140 H [facility] ID Date Data Source [id number] 08/12/2021 09:52:13 PM [facility] Value Range Interpretation Code Description Data Izabela rce(s) Supporting Document(s) Glucose [Mass/volume] in Capillary blood by Glucometer 354 mg/dL 70- 140 [facility] ID Date Data Source [id number] 08/12/2021 06:08:49 PM [facility] Value Range Interpretation Code Description Data Izabela rce(s) Supporting Document(s) Glucose [Mass/volume] in Capillary blood by Glucometer 302 mg/dL 70- 140 [facility] ID Date Data Source [id number] 08/13/2021 06:43:00 AM [facility] Service Cmnt XXX-Imp : NoneMicroorganism XXX Cult : Urine NEGATIVE for L. pneumophila serogroup 1 antigen by immunochromatographic assay. This test does not detect infections due to other L. pneumophila serogroups or to other Legionella species. Name Value Range Interpretation Code Description Data Izabela rce(s) Supporting Document(s) ID Date Data Source [id number] 08/12/2021 03:48:13 PM [facility] Name Value Range Interpretation Code Description Data Izabela rce(s) Supporting Document(s) Glucose [Mass/volume] in Capillary blood by Glucometer 313 mg/dL 70- 140 H [facility] ID Date Data Source [id number] 08/12/2021 12:12:45 PM [facility] Name Value Range Interpretation Code Description Data Izabela rce(s) Supporting Document(s) Glucose [Mass/volume] in Capillary blood by Glucometer 152 mg/dL 70- 140 H [facility] ID Date Data Source [id number] 08/12/2021 09:16:47 AM [facility] MR BRAIN WITHOUT CONTRAST [id number] RES ULTInterpreted by:Alena Cho MDORDERING CLINICAL INFORMATION: [...] 08/11/2021.This document has been electronically signed by CLOLEEN Cho on 08/12/2021 9:14 AM Name Value Range Interpretation Code Description Data Izabela rce(s) Supporting Document(s) ID Date Data Source [id number] 08/12/2021 08:53:42 AM [facility] Value Range Interpretation Code Description Data Izabela rce(s) Supporting Document(s) Glucose [Mass/volume] in Capillary blood by Glucometer 115 mg/dL 70- 140 [facility] ID Date Data Source [id number] 08/12/2021 03:39:44 AM [facility] Value Range Interpretation Code Description Data Izabela rce(s) Supporting Document(s) Glucose [Mass/volume] in Capillary blood by Glucometer 183 mg/dL 70- 140 H [facility] ID Date Data Source [id number] 08/11/2021 11:45:41 PM [facility] Value Range Interpretation Code Description Data Izabela rce(s) Supporting Document(s) Glucose [Mass/volume] in Capillary blood by Glucometer 219 mg/dL 70- 140 H [facility] ID Date Data Source [id number] 08/11/2021 08:16:40 PM [facility] Value Range Interpretation Code Description Data Izabela rce(s) Supporting Document(s) Glucose [Mass/volume] in Capillary blood by Glucometer 204 mg/dL 70- 140 H [facility] ID Date Data Source [id number] 08/11/2021 03:33:04 PM [facility] Value Range Interpretation Code Description Data Izabela rce(s) Supporting Document(s) Glucose [Mass/volume] in Capillary blood by Glucometer 212 mg/dL 70- 140 H [facility] ID Date Data Source [id number] 08/11/2021 02:47:51 PM EDT [facility] XR CHEST FRONTAL ONLY [id number] RESULTI nterpreted by:Jose Whatley III, [facility] IN[facility]: Exam: XR Chest Exam date and time: 08/11/2021 1:44 PM Age: 81 years old Clinical indication: Chronic obstructive pulmonary disease with (acute) exacerbation; Other: Respiratory distress with tachycardia and hypertension TECHNIQUE: Imaging protocol: XR of the chest. Views: 1 view. Total images: 3 COMPARISON: CT THORAX WITH CONTRAST [id number] 08/10/2021 5:32 AM FINDINGS: Lungs: Coarse chronic [...] rce(s) Supporting Document(s) ID Date Data Source [id number] 08/11/2021 03:00:46 PM EDT [facility] Name Value Range Interpretation Code Description Data Izabela rce(s) Supporting Document(s) Lactate [Moles/volume] in Serum or Plasma 1.5 mmol/l 0.5-2.2 [facility] ID Date Data Source [id number] 08/11/2021 01:08:25 PM EDT [facility] Name Value Range Interpretation Code Description Data Izabela rce(s) Supporting Document(s) EKG [facility] CHISZn7mWaZQHrLni5WkVsPmGSCzRK3uzmc1X1S2wIPwL9ZopPZgx4qwX0KcR5ZmOTSkVEZAYZ6VpOLi jb2 [file] tFPyf/vBA3xl/Pv5J/SCRAP CARRIER/f2ok+Ws0g53HccJJ+VwO [file] /jnKD8Tf2TKJ2GO9vBT5Gn9uQQ3P1CgYRI4h2y0P+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+kyIDgSxmScjZ8hdbb4IAsyf9+gG9lLOop1/ [file] 30aQ5TIw7yo9/39Tcgz6+++pV9bL064d/86S2l79+W 33x6/8TEb1ikjzw50nfPd7/mLid50frQF1/8yni4x839/jdavv+4iAScH1h3dsDZe9f//d3bNx8/f//m 8S/lump machine operator/335oXlc8++nyd6FMXd/S/gbFm807pPv+8+3IL+9of6Cz4sn/ry6y/e/Zd33/vAqttC8SJ0G++/ jEin9JuuiZpnA+8ebz++f/b3+YjfPEfyxXePdx+eLf 3Tuy+crh0cdZ2b3knCysEn30GlWb05pgzVc7s/4RIXp66+9/b9b96/aOky7xIvw+ePT49/vpCtv3Fyj0 GnkP7G/bdWct//N11847UM0uhfz05q4Hbh/+nx1W+z9yCeAe9dicrAn5IG/X/QxdiVK42jpwgDi+nx8T gcB891+fxvSMsBb+778b7cd5//w59//OHfHv/1/zy+ +8Mf//j9n//8w/d//MXj8+9/+xBNj8t1141n21///bEume73N3J+yjtXPrvWZ0/t5usv/6nIySbJZ2i5 8cdf/QHgo9aWqjix8Q+/Y492msqG30/f/l9h+t7vMPc/Mf75kxdTvlXd+s0X+t0LSRq8s4zQu7KkqvT6 evv8Yh/Mt1KkNQuvIg5+8O8/POVzC+uzx+Cv1c7u8D nRT6n38DZU4qEFDuwD9l0Bi3hcn/Xo+/z+lz4rJFjfRJNzF2HQA57c20434W/+8fHn7//rs4mpnwcXM9 hA90U//uXnrQfvqQ/6uWOuru7g8Bbr/uOHP/+vv+e0fq8gpxV/K33JG3+f40R932/vDT4fyq42/oc//f Mj0f6X47pRk8zW++dPv/rnT7/I15ezWbsgyo8zfgGf de+yU61lC3c+a16c2kAm+dzM+/bEvnR1k6/58ZefHt//7x/+8tefzXlvdf/yP3/0kS6fgUqbq/f8d/o/ f/7Xv//I0pBzieXLv8//1dER0iy+2+//5++//8sfvv/kVg0q16B95dep88++bJ123r/+9b1HiB//9Kcf CfvxcIL13OAs4q/+9PvPhorZ/YSQUeHmf/rh9//9pz /8/uzMdf41qdD+mfxuA1Heu/pA90a6p83+bgd1943wfaiE/NWX97L+uKn7a5t/0///M8k7csOmgrJ//f 1/++FRHn/081tDTUQrygQItENnOKjao5n0Db+K2j5jgq26hHSfRT/6p/7Vx8/ffXx++ti06h2en8122X j5txwq8lct/eD/KQ24fG9QAZ6ul9AcCIAaLeBmVP9p idzuMEYjGF7uwoz3I9XxlCshNOeMASBjKm2jsHDtQC8VFEA3GSheTMIlTUIjJ0UklQ1nL33bmQHtRjYe QYWUAS1RumE4NBB4XEY8IFFhWyUqYMXaQD77KZEzBBDXKt6vrzGmDhbESsSkBO0redb5A3E6nMPbL048 bVcbzkOyVO1Rb8EjpAUbJO1PaGZsuBCeIUErIOYiF3 bsk7RpTPyjFAVWNk6npdRvZlvIZrVbAD5bmew8D3X1zSmrezMlWDMHYGvrKvuqEI9pyCfxsuezQ7SzbF VeSQAlL7VzGOEnd87WFJVkEBzEWrLrYfXkZJZaHWGmAHbpYfIiZWHrSKPnJOErDY6McTWnZTHcIBFHYF duYbitBDLglY0mkPGSc1ZfZCYNQUIRZUCRTPWECPKH EHCbQSkaCMIgOTWrB8AdtlNufFOgGJXHSLwqOmgoFLKueR5jcOvfG0RcBKL5u4WmGM7OD6WdHOSlYJZO HVO0o1AiOVPnrkihlijgJuVmUOIgDBLnWRDmDG4Rov3tdYAsfsZnPUJEBEhtPhjwJL5ndMqjvlatU2Cu aWVzKSA+TvSdLH9rjf9+SdKvOXIkQjr8VYQwADrsXR OoGEQuKSYjL0wdJJMgZnEwBDLmHvOyNS0Au0IpxQMxTe6xhsQaTmiRfNIkXqjyHQZcUGFjOUWaUjAXWX FnQFOzJEDmSYF9RZEiFRTrPNyrHMVzQZe6ZqJ1TDIuMWGkGW6gCpSxEEUvJpliKmgcBOLvHJAfzhKBBU MrFLP4KqPiTaIsAAYhVIKzNKthQDXaCMJoWBAeFDS4 MCK9GUNsNrXgTHObADEpJZUvZRLfCBEannBSZBNnTZCaDRQ9CDQnLOWoYLTmKIjlMSOmNYCdXBszVZRn MAQpKG4wIeGxHCRnLMMhBQsqDBBxCEDvgtSDMGFgJVWtVZEfMVFrOITeDAZcDPypCJPrTZAlUCCvQIXe IKXkEJ5tGxWrZEHpGVH1ESBbSXGfCLMmkxRUOULqVV AqBQy5ERDsEZXfTVEmFSxeVAWbACPiKVG7UREkOMLuKJ2oObXrUNZvVLQ9WnZtHDRbNKHahzGUXHUiBF CsQQJ0WgGoQRXuHAUwXCpvNUKxOGMbEBzmBANuHTFwEM6tZxNdIXYwYBFkLXytDOIxFXXowoNZHRAsNH LgSDNgHvVoMRBiKIJhQBhsWKUyBUd7JaB1UJBlYJTw YE0sRtVnKAZxHGS0GOkgHMWcJCIymcIWRBMwCTTgNEppERClKYZkHJUeRNosDAHiQISoBLD8IMWxKZDv PP1fVqYjEPZhVUUlNRXtCtE1RnQvRaFOtBOqkCqvqmi6PRfrM7w0KLHpMJhyIH2lokJpXFJkHextLm0i eSM6KDAaNxcKWs6Av0HwczC1uzNkOoe0JbMlIpUnXT0V ID Date Data Source [id number] 08/11/2021 02:09:09 PM [facility] Value Range Interpretation Code Description Data Izabela rce(s) Supporting Document(s) Cardiactroponin T pnl SerPlHS 39 ng/L <14 H [facility] ID Date Data Source [id number] 08/11/2021 02:09:09 PM [facility] [facility] Value Range Interpretation Code Description Data Izabela rce(s) Supporting Document(s) Bicarbonate [Moles/volume] in Serum 25 mmol/L 22-29 [facility] Chloride [Moles/volume] in Serum or Plasma 101 mmol/L 98-107 [facility] Creatinine [Mass/volume] in Serum or Plasma 0.66 mg/dL 0.50-0.90 [facility] Glucose [Mass/volume] in Serum or Plasma 226 mg/dL 70-140 H [facility] Potassium [Moles/volume] in Serum or Plasma 4.0 mmol/L 3.4-5.1 [facility] Sodium [Moles/volume] in Serum or Plasma 139 mmol/L 136-145 [facility] Urea nitrogen [Mass/volume] in Serum or Plasma 17 mg/dL 8-23 [facility] Anion gap 3 in Serum or Plasma 13 mmol/L 8-15 [facility] Osmolality of Serum or Plasma by calculation 297 mosm/kg 275-300 [facility] Creatinine/Urea nitrogen [Mass Ratio] in Serum or Plasma 26 [facility] Calcium [Mass/volume] in Serum or Plasma 8.3 mg/dL 8.8-10.2 L [facility] Glomerular filtration rate/1.73 sq M pre dicted among non-blacks [Volume Rate/Area] in Serum or Plasma by Creatinine-based formula (MDRD) 82 mL/min/1.73m2 >60 [facility] Glomerular filtration rate/1.73 sq M pre dicted among blacks [Volume Rate/Area] in Serum or Plasma by Creatinine-based formula (MDRD) >60 [facility] ID Date Data Source [id number] 08/11/2021 02:09:09 PM [facility] Value Range Interpretation Code Description Data Izabela rce(s) Supporting Document(s) Magnesium [Mass/volume] in Serum or Plasma 2.0 mg/dL 1.6-2.4 [facility] ID Date Data Source [id number] 08/12/2021 09:05:49 PM [facility] Value Range Interpretation Code Description Data Izabela rce(s) Supporting Document(s) Cholesterol [Mass/volume] in Serum or Plasma 237 mg/dL <200 [facility] Triglyceride [Mass/volume] in Serum or Plasma 139 mg/dL <150 [facility] Cholesterol in HDL [Mass/volume] in Serum or Plasma 72 mg/dL >50 [facility] Cholesterol in LDL [Mass/volume] in Serum or Plasma by calcu lation 137 mg/dL <100 [facility] Cholesterol in VLDL [Mass/volume] in Serum or Plasma by calc ulation 28 mg/dl 16-42 [facility] Cholesterol non HDL [Mass/volume] in Serum or Plasma 165 mg/dL <130 H [facility] ID Date Data Source [id number] 08/11/2021 01:08:56 PM [facility] Value Range Interpretation Code Description Data Izabela rce(s) Supporting Document(s) Glucose [Mass/volume] in Capillary blood by Glucometer 218 mg/dL 70- 140 [facility] ID Date Data Source [id number] [facility] Code Description Data Izabela rce(s) Supporting Document(s) Glucose [Mass/volume] in Capillary blood by Glucometer 149 mg/dL 70- 140 H [facility] ID Date Data Source [id number] 08/11/2021 10:27:30 AM [facility] Value Range Interpretation Code Description Data Izabela rce(s) Supporting Document(s) pH of Arterial blood 7.41 7.38-7.44 [facility] Carbon dioxide [Partial pressure] in Arterial blood 49 mm[Hg] 35-40 H [facility] Oxygen [Partial pressure] in Arterial blood 145 mmHg 95-100 H [facility] Oxygen saturation in Arterial blood 99 % 94-100 [facility] Base excess in Arterial blood by calculation 6 [facility] Carbon dioxide, total [Moles/volume] in Arterial blood 32 mmol/L [facility] Oxygen/Inspired gas setting [Volume Fraction] Ventilator [facility] ID Date Data Source [id number] 08/11/2021 08:24:10 AM [facility] Value Range Interpretation Code Description Data Izabela rce(s) Supporting Document(s) Glucose [Mass/volume] in Capillary blood by Glucometer 103 mg/dL 70- 140 [facility] ID Date Data Source [id number] 08/11/2021 07:48:12 AM [facility] Value Range Interpretation Code Description Data Izabela rce(s) Supporting Document(s) EKG [facility] DIGNFw5cOgLJKgKlr2DzTlLwXCJkYB3hbyz6B2M9fRUvR1YlmOMxg2ebK9YhD5RdRMZuSUCWLG4MxZKe jb2 [file] 523wp+pueg54S/t96VZd0woei/fPfudy/jlgqi01wN b16+qyXO16qwung62p6m34+8//D24+8+e/P+70vnqHiv3yC+m+8+xq391kH3t3u866h/0mnXQdKC5ngD u9wwkhv4Qvewk6239+Rh91dAl/4d93cps0d18uPj6n908cf5u0+/+mE9n3aIbx40/+brVx+/e//m5fs3 726LfPfVq/cvr7/5+hfy6ti5Vm/+i7zvf+4776/fvn x98NTO34/31mFvr1xc9jn3475k1l+K+ICj3s0fzo/p5y7qv7441/Iy1439+lgF984+8+zk7vd9m57zjp cNK414/C+pD2G9m39+cruzevPqiw+PdO8+zDri4hjj263++fjyL6++v8K6U3muUwGH15MqPCq+32935/ m9590jahug+p8+vLz6/cTdp3711rp5/0GcB6elxE1/ 6Zd//+nPP//4h5d/+8+X73/64x9/+Austin/zhj//w8sUPv/z04x9f/vXvyvrXv3/50y8v+9e1/lrf/vy8 r8+v/cEh8147J3ymEbyO/Pzzr//KTmknfI7NU/3z99C3+2hY4hX67i+TIzM96y8/oO8gGaniDrb6itvJ 78SjcnNfpid74twpG+zr5GuBp/TijCiulaj4R6e/47 //+DCTcz6ZM03+/O7NFy+oyju98t1XI3pOfoUxn+03ovt6STQrcylc2P/5lhZW/zipLFejifrT5/D9j7 /89R9f/toVM548yr3rh/+y6e5h+8pbG7oztl/ff/y0y9//fHP//tvam/ZhzGfs7/BVOpm/T T30P3z+w8vf/iPR91/+kGlr5dqVul+eb5hZCk//vjr f/45c22beVSbKlBa4x/4/hQ9KdB9FDyS+nUsRoxNymm8ere1bpgJ0mtZ8x/28eWH//PjX/83vxvdxl0G /po0Y828N3V4tRdZ+PCff/7Xv//k6XgPX/748w9/fHrD+0n/+of/+P0Pf/nph18+qCBnQn6derf0/fmW +vXHf/vbtMeI7//0p58//1g/0Udzv/mW0d7M7ndA7m hNwa3/+OPv/+cvP/3+Ub3Pv/pfv2b77/ir+ZLKU06RVmK8/i9/gmD4H8u++qcYs1flHw6f5ofa2+Pwh8 85BNz/of//R+8MG21TXrW++8P/+UMjdBsl19/4po2Y/IwVH+9hed89X127pXNu2wpf5DC+3JDlG585q/ nN+y/physician gynecologist/0ITcV5m395pOm87301+3ywMkwokfAwW3n /G79l1iWOxYfKNH1bfKogBlfrsZbJvtZWWxoQATmVfb3MR4XgLSlQPCrA2Q4LIFgtb8xQZWrNCDpxSYx DyEzHXMNCU8WqTCzRI4INIm6PWQhUCXxFrKrUUIqcdP8XVDkNCXzYEWwH9OuwgQhwDNkRVZgMh9+ZW5k k8GnBtRbRHItCyz1PZ3JeGObCY4EaNXseA2phjWyY4 74nsItYCXcEskhe7DdSYkqSVBJUF4IKTM5EVD6BFKuNk8+XB9df0DmWuGeAEFoUag8DU0VoMImw4ZvUB 0SF8MdRVAxVQJMRSK5w3TeBXJzavrlyytfI5QmKGS6gX2gPBV2SSWaUBwiAQUyHMqzWyI7BFgaEEfzEB PqHCTsIUGuEEIiGQx0qWDcJX8TG1DmRRYoCJKQIXEq flTpNk0qRQZKMIJUCzxjFDRNPlmUNDVxXkj5WWBnLrysM6N3LdapI0BkVD9VJ6DoBCRjYGXWGMLfmxUh DS9GieKvdR7zNRcWTLZOZDwBBGtoKoQ7z63iajVTEAMuVZUzNRqxRJSwGKClYJBlQUUnMCBxYFLcJOCk LP1KF7LiKONoISDZYSK4m0CwKWIntlrpzzzhZv3vqc RvYmo+DrpyWMYdy9TvWIfpB8L1oJFgD2QkN9WpBW7HyFIuUAhaENNhGITwKXQfT049kwAvKM7+ZW5kb2 SqBojiUUBUMEBuFBMzJHHxTNC1HnAdRAQuYOGqEDAuGwY8IwXfJfOJEUUsHXM7VmD4FqAmRBKiXSGbRY tfUNVgLVkjZNL2LNXvPSMjEV7oYvHzSJYxZeMhNYLj YEDfMIApofFQWKMlCEQgRBMnYBE1YICkIRIvMZvlALUbMMCfMRL4OBMnPEWvLD8uNsGoVDOfCVMgBtps AIYsJHRobgQQUEQuYISaYDT7XiQeCMNyFVIaLFwgVXNnCBGvOkp8DTOzFSDxTM5iKqIjUWNvEDH5IGha MDAwMDAgbiAKMDAwMDAwMDUyMyAwMDAwMCBuIAowMD HlMDOqHuGyGPUbYNXiID7mKgXfXUDqJJF6LFLpEBGyMFPwjaVTLUMgXOMdDMa2BLShAUMzQNGmXNhiPI ReYTDrSFM0SPYaHYNzYY5eIhGdZNCcZEMbUEEmXMEkNSChutZNHNKlTNXsGTG3JZDePFGdJOMvCDjsOC KxFMVhXnn3KAPlMTRoIS8nKdPyDSWsKUO3VMPsXNGg DTCckvFXDULmWZL8CYgmJLBeHSChKLZuCCrwCUMgKTYpNoN4OOVvPZXrYA3tZbVeQIRwSRI2WcDsBUTb OCYutmKQMDYlDIXaOMT3ApFfHLLiSDGvMUxdFMMbUHUdJFMuJSY4DAK8UXAaIlAePGbwTERDRXdTF7Oy vjUtXyPLS0ymWs5lPbFoFAAIT0Llc1DcEVChWYNGTz0+UsB3TLE0dXVtMba3IcWjXAycRZSTMm== ID Date Data Source [id number] 08/11/2021 03:20:02 AM EDT [facility] Name Value Range Interpretation Code Description Data Izabela rce(s) Supporting Document(s) Glucose [Mass/volume] in Capillary blood by Glucometer 143 mg/dL 70- 140 H [facility] ID Date Data Source [id number] 08/10/2021 11:40:37 PM EDT [facility] Name Value Range Interpretation Code Description Data Izabela rce(s) Supporting Document(s) Glucose [Mass/volume] in Capillary blood by Glucometer 180 mg/dL 70- 140 H [facility] ID Date Data Source [id number] 08/10/2021 02:43:08 PM EDT [facility] Service Cmnt XXX-Imp : NoneMicroorganism XXX Cult : Polymerase chain reaction assay was POSITIVE for methicillin-SUSCEPTIBLE Staphylococcus aureus (MSSA) AND NEGATIVE for methicillin resistant Staphylococcus aureus (MRSA). Name Value Range Interpretation Code Description Data Izabela rce(s) Supporting Document(s) ID Date Data Source [id number] 08/11/2021 07:17:06 AM EDT [facility] Cmnt XXX-Imp : NoneMicroorganism XXX Cult : 7,000 col/mlIndigenous microorganisms. Name Value Range Interpretation Code Description Data Izabela rce(s) Supporting Document(s) ID Date Data Source [id number] [facility] : R ACMicroorganism XXX Cult : No growth 5 days Name Value Range Interpretation Code Description Data Izabela rce(s) Supporting Document(s) ID Date Data Source [id number] 08/15/2021 11:37:40 AM [facility] Cmnt XXX-Imp : L ACMicroorganism XXX Cult : No growth 5 days Name Value Range Interpretation Code Description Data Izabela rce(s) Supporting Document(s) ID Date Data Source [id number] 08/10/2021 11:43:43 AM [facility] Name Value Range Interpretation Code Description Data Izabela rce(s) Supporting Document(s) Magnesium [Mass/volume] in Serum or Plasma 1.8 mg/dL 1.6-2.4 [facility] QA FLAGS AND/OR RANGES MODIFIED BY DEMOG RAPHIC UPDATE ON 08/10 AT 2233 ID Date Data Source [id number] 08/15/2021 11:37:40 AM [facility] Cmnt XXX-Imp : R WRISTMicroorgan ism XXX Cult : No growth 5 days Name Value Range Interpretation Code Description Data Izabela rce(s) Supporting Document(s) ID Date Data Source [id number] 08/11/2021 10:16:29 AM [facility] Cmnt XXX-Imp : NoneMicroorganism XXX Cult : NO Methicillin resistant Staphylococcus aureus isolated Name Value Range Interpretation Code Description Data Izabela rce(s) Supporting Document(s) ID Date Data Source [id number] 08/09/2021 10:01:19 PM [facility] Name Value Range Interpretation Code Description Data Izabela rce(s) Supporting Document(s) Bicarbonate [Moles/volume] in Serum 32 mmol/L 22-29 H [facility] Chloride [Moles/volume] in Serum or Plasma 100 mmol/L 98-107 [facility] Creatinine [Mass/volume] in Serum or Plasma 0.73 mg/dL 0.50-0.90 [facility] Glucose [Mass/volume] in Serum or Plasma 230 mg/dL 70-140 H [facility] Potassium [Moles/volume] in Serum or Plasma 5.1 mmol/L 3.4-5.1 [facility] Sodium [Moles/volume] in Serum or Plasma 139 mmol/L 136-145 [facility] Urea nitrogen [Mass/volume] in Serum or Plasma 24 mg/dL 8-23 H [facility] Anion gap 3 in Serum or Plasma 7 mmol/L 8-15 L [facility] Osmolality of Serum or Plasma by calculation 299 mosm/kg 275-300 [facility] Creatinine/Urea nitrogen [Mass Ratio] in Serum or Plasma 33 [facility] Calcium [Mass/volume] in Serum or Plasma 8.5 mg/dL 8.8-10.2 L [facility] QA FLAGS AND/OR RANGES MODIFIED BY LingohubIC UPDATE ON 08/10 AT 2233 Glomerular filtration rate/1.73 sq M pre dicted among non-blacks [Volume Rate/Area] in Serum or Plasma by Creatinine-based formula (MDRD) >6 0 [facility] Glomerular filtration rate/1.73 sq M pre dicted among blacks [Volume Rate/Area] in Serum or Plasma by Creatinine-based formula (MDRD) >60 [facility] ID Date Data Source [id number] 08/09/2021 10:01:19 PM EDT [facility] Name Value Range Interpretation Code Description Data Izabela rce(s) Supporting Document(s) Magnesium [Mass/volume] in Serum or Plasma 2.0 mg/dL 1.6-2.4 [facility] QA FLAGS AND/OR RANGES MODIFIED BY LingohubIC UPDATE ON 08/10 AT 2233 ID Date Data Source [id number] 07/28/2021 11:06:00 PM EDT [facility] Name Value Range Interpretation Code Description Data Izabela rce(s) Supporting Document(s) SARS coronavirus 2 RNA [Presence] in Res piratory specimen by MAXIMILIAN with probe detection NEGATIVE [facility] This lab was ordered by [facility] a nd reported by [facility]. ID Date Data Source [id number] 05/31/2021 11:51:00 AM EDT [facility] ([facility] Name Value Range [...] Troponin I 0.11 ng/mL Above high normal [facility] ([facility] <content>Troponin I Reference Interval f or Siemens [place]lake LOCI:</content>
<content></content>
<content>99th Percentile= 0.00-0.045 ng/ml</content>
<content></content>
<content>Risk Stratification:</content>
<content><= 0.10 ng/ml Decreased Risk for Adverse Clinical</content>
<content>Events.</content>
<content>0.10-1.50 ng/ml Increased Risk for Adverse Clinical</content>
<content>Events. Evaluation of additional</content>
<content>criterion and/or repeat testing in 2-6</content>
<content>hours is suggested to rule out myocardial</content>
<content>damage.</content>
<content>>= 1.50 ng/ml Indicative of Myocardial Injury.</content>
<content></content> ID Date Data Source [id number] 05/31/2021 09:48:00 AM EDT [facility] ([facility] Name Value Range Interpretation Code Description Data Izabela rce(s) Supporting Document(s) Prothrombin Time 13.9 s 12.5-14.3 Normal (applies to non-numeric results) [facility] ([facility] Partial Thromboplastin Time 30.9 s 24.2-38.5 Norm al (applies to non-numeric results) [facility] ([facility] ) Inr 1.05 Normal (applies to non-numeric resul ts) [facility] ([facility] THERAPUTIC HUMAN INR VALUES INDICATIONS NORMAL RANGES PROPHYLAXIS/TREATMENT OF: VENOUS THROMBOSIS 2.0-3.0 PULMONARY EMBOLISM 2.0-3.0 PREVENTION OF SYSTEMIC EMBOLISM FROM: TISSUE HEART VALVES 2.0-3.0 ACUTE MYOCARDIAL INFARCTION 2.0-3.0 VALVULAR HEART DISEASE 2.0-3.0 ATRIAL FIBRILLATION 2.0-3.0 MECHANICAL VALVES(HIGH RISK) 2.5-3.5 RECURRENT MYOCARDIAL INFARCTION 2.5-3.5 ID Date Data Source [id number] 05/31/2021 09:17:00 AM EDT [facility] Name Value Range Interpretation Code Description Data Izabela rce(s) Supporting Document(s) SARS-CoV-2 (COVID 19) NEGATIVE - SARS-CoV-2 (COVID19) [facility] This lab was ordered by [facility] a nd reported by [facility]. ID Date Data Source [id number] 05/31/2021 09:17:00 AM EDT [facility] ([facility] Name Value Range [...] [facility] ID Date Data Source [id number] 05/31/2021 09:17:00 AM EDT [facility] ([facility] [...] Normal (applies to non-numeric resul ts) [facility] ([facility] Red Cell Distribution Width 13.5 % 11.5-14.5 Norm al (applies to non-numeric results) [facility] ([facility] ) Mean Corpuscular HGB Conc 28.9 g/dL 32.0-36.5 Below low normal [facility] ([facility] Mean Corpuscular Hemoglobin 26.9 pg 27.0-33.0 Below low normal [facility] ([facility] Neutrophils % 76.8 % 36.0-66.0 Above high normal [facility] ([facility] Platelet Count, Automated 368 10 150-450 Normal (applies to non-numeric results) [facility] ([facility] ) [place] % 7.9 % 2.0-8.0 Normal (applies to [...] Normal (applies to n on-numeric results) [facility] ([facility] Immature Granulocyte % 0.4 % 0-3.0 Normal (applies to non-n umeric results) [facility] ([facility] Neutrophils # 12.0 10 1.5-8.5 Above high normal [facility] ([facility] [place] # 1.2 10 0.0-0.8 Above high normal [facility] ([facility] Lymph # 2.0 10 1.5-5.0 Normal (applies to non-numeric resul ts) [facility] ([facility] Baso # 0.1 10 0.0-0.2 Normal (applies to non-numeric resul ts) [facility] ([facility] Eos # 0.3 10 0.0-0.5 Normal (applies to non-numeric resul ts) [facility] ([facility] ID Date Data Source [id number] 05/31/2021 09:17:00 AM EDT [facility] ([facility] Name Value Range Interpretation Code Description Data Izabela rce(s) Supporting Document(s) CK-MB Value Mass 2.0 ng/mL Normal (applies to non-numeric results) [facility] ([facility] CPK Creatine Phosphokinase 40 U/L 26-192 Samantha l (applies to non-numeric results) [facility] ([facility] ) MB/CK Relative Index 5.00 Above high normal [facility] ([facility] <content>DIAGNOSIS CRITERIA</content>
<content>MMB ng/ml Relative Index (RI)</content>
<content>NON-AMI < or = 5 N/A</content>
<content>ALANIS ZONE > 5 < or = 4</content>
<content>AMI > 5 > 4</content>
<content></content> Troponin I 0.13 ng/mL Above high normal [facility] ([facility] <content>Troponin I Reference Interval f or Siemens Westlake LOCI:</content>
<content></content>
<content>99th Percentile= 0.00-0.045 ng/ml</content>
<content></content>
<content>Risk Stratification:</content>
<content><= 0.10 ng/ml Decreased Risk for Adverse Clinical</content>
<content>Events.</content>
<content>0.10-1.50 ng/ml Increased Risk for Adverse Clinical</content>
<content>Events. Evaluation of additional</content>
<content>criterion and/or repeat testing in 2-6</content>
<content>hours is suggested to rule out myocardial</content>
<content>damage.</content>
<content>>= 1.50 ng/ml Indicative of Myocardial Injury.</content>
<content></content> ID Date Data Source [id number] 05/31/2021 09:17:00 AM EDT [facility] ([facility] Name Value Range Interpretation Code Description Data Izabela rce(s) Supporting Document(s) Ast/Sgot 8 U/L 7-37 Normal (applies to non-numeric resul ts) [facility] ([facility] Alt/SGPT 19 U/L 12-78 Normal (applies to non-numeric resul ts) [facility] ([facility] Alkaline Phosphatase 55 U/L 45-117 Normal (applies to non-num yassine results) [facility] Bilirubin,Total 0.4 mg/dL 0.2-1.0 Normal (applies to non-numeric results) [facility] ([facility] Total Protein 6.2 GM/DL 6.4-8.2 Below low normal [facility] ([facility] Bilirubin,Direct 0.1 mg/dL 0.0-0.2 Normal (applies to non-numeric results) [facility] ([facility] Albumin/Globulin Ratio 1.1 1.2-2.2 Below low normal [facility] ([facility] Albumin 3.3 GM/DL 3.2-5.2 Normal (applies to non-numeric resul ts) [facility] ([facility] ID Date Data Source [id number] 05/31/2021 09:17:00 AM EDT [facility] ([facility] Name Value Range Interpretation Code Description Data Izabela rce(s) Supporting Document(s) Glucose, Fasting 127 mg/dL 70-100 Above high normal [facility] ([facility] Blood Urea Nitrogen 32 mg/dL 7-18 Above high normal [facility] ([facility] Creatinine For GFR 0.84 mg/dL 0.55-1.30 Normal (applies to non -numeric results) [facility] ([facility] Glomerular Filtration Rate Laboratory test result Normal (applies to non- numeric results) [facility] <content>Units are mL/min/1.73 m2</content>
<content></content>
<content>Chronic Kidney Disease Staging per NKF:</content>
<content></content>
<content>Stage I & II GFR >=60 Normal to Mildly Decreased</content>
<content>Stage III GFR 30- 59 Moderately Decreased</content>
<content>Stage IV GFR 15-29 Severely Decreased</content>
<content>Stage V GFR <15 Very Little GFR Left</content>
<content>ESRD GFR <15 on LAYER UP</content>
<content></content> Sodium Level 144 meq/L 136-145 Normal (applies to non-numeric res ults) [facility] ([facility] Chloride Level 106 meq/L 98-107 Normal (applies to non-numeric r esults) [facility] ([facility] Potassium Serum 4.4 meq/L 3.5-5.1 Normal (applies to non-numeric results) [facility] ([facility] Anion Gap 6 meq/L 8-16 Below low normal [facility] ( [facility] Calcium Level 9.1 mg/dL 8.8-10.2 Normal (applies to non-numeric re sults) [facility] ([facility] Carbon Dioxide Level 32 meq/L 21-32 Normal (applies to non-num yassine results) [facility] ([facility] ID Date Data Source [id number] 05/31/2021 09:17:00 AM EDT [facility] ([facility] Name Value Range Interpretation Code Description Data Izabela rce(s) Supporting Document(s) Natriuretic peptide.B prohormone N-Terminal [Mass/volu me] in Serum or Plasma 1363 pg/mL Above high normal [facility] ([facility] Thyrotropin [Units/volume] in Serum or Plasma 2.010 uIU/ML 0. 358-3.740 Normal (applies to non-numeric results) [facility] ([facility] ID Date Data Source [id number] 05/31/2021 09:17:00 AM EDT [facility] ([facility] Name Value Range Interpretation Code Description Data Izabela rce(s) Supporting Document(s) Respiratory Panel Laboratory test result [facility] ([facility] This respiratory PCR panel detects Influ [...] - SARS-CoV-2 (COVID19) ID Date Data Source [id number] 05/19/2021 01:52:00 PM EDT [facility] ([facility] Name Value Range Interpretation Code Description Data Izabela rce(s) Supporting Document(s) Hemoglobin A1c/Hemoglobin.total in Blood 8.3 % 4.50-6.20 Above high normal [facility] ID Date Data Source [id number] 05/19/2021 01:52:00 PM EDT [facility] ([facility] Name Value Range Interpretation Code Description Data Izabela rce(s) Supporting Document(s) WBC 9.2 10E3/uL 4.1-10.9 [facility] ([facility] NORMAL RANGES Age WBC [...] RBC 3.91 10E6/uL 4.20-6.30 Below low normal [facility] NORMAL RANGES Age [...] HCT IS 5% LESS SOURCE FOR DATA: [employer] MANUAL( AUTOMATED BLOOD COUNTS AND [...] HCT IS 5% LESS SOURCE FOR DATA: [employer] MANUAL( AUTOMATED BLOOD COUNTS AND [...] HCT 36.2 % 37.0-51.0 Below low normal [facility] ( [facility] NORMAL RANGES [...] HCT IS 5% LESS SOURCE FOR DATA: [employer] MANUAL( AUTOMATED BLOOD COUNTS AND [...] 2-19 YEARS EXCLUSIVE. MCV 92.6 fL 80.0-97.0 [facility] ([facility] NORMAL [...] HCT IS 5% LESS SOURCE FOR DATA: [employer] MANUAL( AUTOMATED BLOOD COUNTS AND [...] HCT IS 5% LESS SOURCE FOR DATA: [employer]PERATION MANUAL( AUTOMATED BLOOD COUNTS AND [...] HCT IS 5% LESS SOURCE FOR DATA: [employer] DYN 1800 OPERATION MANUAL( AUTOMATED BLOOD COUNTS [...] 2-19 YEARS EXCLUSIVE. PLT 309 10E3/uL 140-440 [facility] ([facility] NORMAL RANGES Age WBC [...] HCT IS 5% LESS SOURCE FOR DATA: [employer] 1800 OPERATION MANUAL( AUTOMATED BLOOD COUNTS AND [...] 2-19 YEARS EXCLUSIVE. RDW-CV 13.1 % 11.5-14.5 [facility] NORMAL RANGES Age WBC [...] HCT IS 5% LESS SOURCE FOR DATA: [employer] 1800 OPERATION MANUAL( AUTOMATED BLOOD COUNTS AND [...] HCT IS 5% LESS SOURCE FOR DATA: [employer] 1800 OPERATION MANUAL( AUTOMATED BLOOD COUNTS AND [...] HCT IS 5% LESS SOURCE FOR DATA: [employer] DYN 1800 OPERATION MANUAL( AUTOMATED BLOOD COUNTS [...] HCT IS 5% LESS SOURCE FOR DATA: [employer] 1800 OPERATION MANUAL( AUTOMATED BLOOD COUNTS AND [...] 2-19 YEARS EXCLUSIVE. Lym# 0.6 10E3/uL 0.6-4.1 [facility] ([facility] NORMAL RANGES Age WBC [...] HCT IS 5% LESS SOURCE FOR DATA: [employer] 1800 OPERATION MANUAL( AUTOMATED BLOOD COUNTS AND [...] HCT IS 5% LESS SOURCE FOR DATA: [employer] 1800 OPERATION MANUAL( AUTOMATED BLOOD COUNTS AND [...] 2-19 YEARS EXCLUSIVE. MXD# 0.2 10E3/uL 0.0-1.8 [facility] [facility] ([facility] NORMAL RANGES Age WBC [...] HCT IS 5% LESS SOURCE FOR DATA: [employer] 1800 OPERATION MANUAL( AUTOMATED BLOOD COUNTS AND [...] 2-19 YEARS EXCLUSIVE. MPV 11.4 fL 9.0-13.0 [facility] ([facility] NORMAL [...] HCT IS 5% LESS SOURCE FOR DATA: [employer] 1800 OPERATION MANUAL( AUTOMATED BLOOD COUNTS AND [...] 2-19 YEARS EXCLUSIVE. ID Date Data Source [id number] 05/19/2021 01:52:00 PM EDT [facility] (Famil y [...] HCT IS 5% LESS SOURCE FOR DATA: [employer] 1800 OPERATION MANUAL( AUTOMATED BLOOD COUNTS AND [...] 2-19 YEARS EXCLUSIVE. Trig 122 mg/dL 40-200 [facility] ([facility] NORMAL RANGES [...] HCT IS 5% LESS SOURCE FOR DATA: [employer] DYN 1800 OPERATION MANUAL( AUTOMATED BLOOD COUNTS [...] HCT IS 5% LESS SOURCE FOR DATA: [employer] 1800 OPERATION MANUAL( AUTOMATED BLOOD COUNTS AND [...] 2-19 YEARS EXCLUSIVE. LDL_C 101 Calc 75-129 [facility] ([facility] NORMAL RANGES [...] HCT IS 5% LESS SOURCE FOR DATA: [employer] 1800 OPERATION MANUAL( AUTOMATED BLOOD COUNTS AND [...] 2-19 YEARS EXCLUSIVE. Cho/HDL Ratio 2.8 CALC [employer] ([facility] [employer] NORMAL RANGES Age WBC RBC HGB [...] HCT IS 5% LESS SOURCE FOR DATA: [employer] 1800 OPERATION MANUAL( AUTOMATED BLOOD COUNTS AND [...] 2-19 YEARS EXCLUSIVE. ID Date Data Source [id number] 05/19/2021 01:52:00 PM EDT [facility] ([facility] Name Value Range [...] HCT IS 5% LESS SOURCE FOR DATA: [employer] 1800 OPERATION MANUAL( AUTOMATED BLOOD COUNTS AND [...] BUN 29 mg/dL 8-23 Above high normal [facility] ([facility] NORMAL RANGES Age [...] HCT IS 5% LESS SOURCE FOR DATA: [employer] 1800 OPERATION MANUAL( AUTOMATED BLOOD COUNTS AND [...] 2-19 YEARS EXCLUSIVE. Creat 0.9 mg/dL 0.5-1.0 [facility] ([facility] NORMAL RANGES [...] HCT IS 5% LESS SOURCE FOR DATA: [employer] 1800 OPERATION MANUAL( AUTOMATED BLOOD COUNTS AND [...] YEARS EXCLUSIVE. BUN/Creatinine Ratio 31.6 CALC [facility] ([facility] NORMAL RANGES Age [...] HCT IS 5% LESS SOURCE FOR DATA: [employer] 1800 OPERATION MANUAL( AUTOMATED BLOOD COUNTS AND [...] 2-19 YEARS EXCLUSIVE. Na 136 mmol/L 136-145 [facility] ([facility] NORMAL RANGES Age WBC [...] HCT IS 5% LESS SOURCE FOR DATA: [employer] 1800 OPERATION MANUAL( AUTOMATED BLOOD COUNTS AND [...] 2-19 YEARS EXCLUSIVE. K 4.8 mmol/L 3.5-5.1 [facility] ([facility] NORMAL RANGES [...] HCT IS 5% LESS SOURCE FOR DATA: [employer] 1800 OPERATION MANUAL( AUTOMATED BLOOD COUNTS AND [...] HCT IS 5% LESS SOURCE FOR DATA: [employer] 1800 OPERATION MANUAL( AUTOMATED BLOOD COUNTS AND [...] 2-19 YEARS EXCLUSIVE. CA 9.0 mg/dL 8.6-10.2 [facility] ([facility] NORMAL RANGES [...] HCT IS 5% LESS SOURCE FOR DATA: [employer] DYN 1800 OPERATION MANUAL( AUTOMATED BLOOD COUNTS [...] HCT IS 5% LESS SOURCE FOR DATA: [employer] 1800 OPERATION MANUAL( AUTOMATED BLOOD COUNTS AND [...] HCT IS 5% LESS SOURCE FOR DATA: [employer] DYN 1800 OPERATION MANUAL( AUTOMATED BLOOD COUNTS [...] 2-19 YEARS EXCLUSIVE. Alb 4.1 g/dL 3.4-4.8 [facility] ([facility] NORMAL RANGES [...] HCT IS 5% LESS SOURCE FOR DATA: [employer] DYN 1800 OPERATION MANUAL( AUTOMATED BLOOD COUNTS [...] 2-19 YEARS EXCLUSIVE. A/G Ratio 2.7 CALC [facility] ([facility] NORMAL RANGES [...] HCT IS 5% LESS SOURCE FOR DATA: [employer] 1800 OPERATION MANUAL( AUTOMATED BLOOD COUNTS AND [...] HCT IS 5% LESS SOURCE FOR DATA: [employer] 1800 OPERATION MANUAL( AUTOMATED BLOOD COUNTS AND [...] HCT IS 5% LESS SOURCE FOR DATA: [employer] 1800 OPERATION MANUAL( AUTOMATED BLOOD COUNTS AND [...] HCT IS 5% LESS SOURCE FOR DATA: [employer] 1800 OPERATION MANUAL( AUTOMATED BLOOD COUNTS AND [...] HCT IS 5% LESS SOURCE FOR DATA: [employer] 1800 OPERATION MANUAL( AUTOMATED BLOOD COUNTS AND [...] 2-19 YEARS EXCLUSIVE. Tbili 0.26 mg/dL 0.0-1.2 [facility] ([facility] NORMAL RANGES Age WBC [...] HCT IS 5% LESS SOURCE FOR DATA: [employer] 1800 OPERATION MANUAL( AUTOMATED BLOOD COUNTS AND [...] HCT IS 5% LESS SOURCE FOR DATA: [employer] 1800 OPERATION MANUAL( AUTOMATED BLOOD COUNTS AND [...] HCT IS 5% LESS SOURCE FOR DATA: [employer] 1800 OPERATION MANUAL( AUTOMATED BLOOD COUNTS AND [...] [facility] CKD-EPI eGFR Non-Afr. Ecuadorean 61 # [facility] ([facility] CKD-EPI ID Date Data Source [id number] 02/15/2021 02:33:00 PM EDT [facility] ([facility] Name Value Range [...] HCT IS 5% LESS SOURCE FOR DATA: [employer] 1800 OPERATION MANUAL( AUTOMATED BLOOD COUNTS AND [...] 2-19 YEARS EXCLUSIVE. ID Date Data Source [id number] 02/15/2021 02:33:00 PM EDT [facility] (Famil y [...] HCT IS 5% LESS SOURCE FOR DATA: [employer] 1800 OPERATION MANUAL( AUTOMATED BLOOD COUNTS AND [...] RBC 4.17 10E6/uL 4.20-6.30 Below low normal [facility] ([facility] NORMAL RANGES Age [...] HCT IS 5% LESS SOURCE FOR DATA: [employer] 1800 OPERATION MANUAL( AUTOMATED BLOOD COUNTS AND [...] HCT IS 5% LESS SOURCE FOR DATA: [employer] 1800 OPERATION MANUAL( AUTOMATED BLOOD COUNTS AND [...] 2-19 YEARS EXCLUSIVE. MCV 91.6 fL 80.0-97.0 [facility] ([facility] NORMAL [...] HCT IS 5% LESS SOURCE FOR DATA: [employer] 1800 OPERATION MANUAL( AUTOMATED BLOOD COUNTS AND [...] 2-19 YEARS EXCLUSIVE. HCT 38.2 % 37.0-51.0 [facility] ([facility] NORMAL RANGES [...] HCT IS 5% LESS SOURCE FOR DATA: [employer] 1800 OPERATION MANUAL( AUTOMATED BLOOD COUNTS AND [...] HCT IS 5% LESS SOURCE FOR DATA: [employer] 1800 OPERATION MANUAL( AUTOMATED BLOOD COUNTS AND [...] 2-19 YEARS EXCLUSIVE. MCH 26.4 pg 26.0-32.0 [facility] ([facility] NORMAL [...] 2-19 YEARS EXCLUSIVE. PLT 308 10E3/uL 140-440 [facility] ([facility] NORMAL RANGES Age WBC [...] HCT IS 5% LESS SOURCE FOR DATA: [employer] 1800 OPERATION MANUAL( AUTOMATED BLOOD COUNTS AND [...] HCT IS 5% LESS SOURCE FOR DATA: [employer] 1800 OPERATION MANUAL( AUTOMATED BLOOD COUNTS AND [...] HCT IS 5% LESS SOURCE FOR DATA: [employer] 1800 OPERATION MANUAL( AUTOMATED BLOOD COUNTS AND [...] 2-19 YEARS EXCLUSIVE. MXD% 9.6 % 0.1-24.0 [facility] ([facility] NORMAL RANGES [...] HCT IS 5% LESS SOURCE FOR DATA: [employer] 1800 OPERATION MANUAL( AUTOMATED BLOOD COUNTS AND [...] Neut% 80.9 % 37.0-92.0 [facility] ([facility] NORMAL RANGES Age WBC [...] HCT IS 5% LESS SOURCE FOR DATA: [employer] 1800 OPERATION MANUAL( AUTOMATED BLOOD COUNTS AND [...] 2-19 YEARS EXCLUSIVE. Lym# 1.0 10E3/uL 0.6-4.1 [employer] NORMAL RANGES Age WBC RBC HGB [...] HCT IS 5% LESS SOURCE FOR DATA: [employer] 1800 OPERATION MANUAL( AUTOMATED BLOOD COUNTS AND [...] HCT IS 5% LESS SOURCE FOR DATA: [employer] 1800 OPERATION MANUAL( AUTOMATED BLOOD COUNTS AND [...] 2-19 YEARS EXCLUSIVE. MXD# 1.0 10E3/uL 0.0-1.8 [facility] ([facility] NORMAL RANGES Age WBC [...] HCT IS 5% LESS SOURCE FOR DATA: [employer] 1800 OPERATION MANUAL( AUTOMATED BLOOD COUNTS AND [...] 2-19 YEARS EXCLUSIVE. MPV 11.2 fL 9.0-13.0 [facility] ([facility] NORMAL [...] HCT IS 5% LESS SOURCE FOR DATA: [employer] 1800 OPERATION MANUAL( AUTOMATED BLOOD COUNTS AND [...] 2-19 YEARS EXCLUSIVE. ID Date Data Source [id number] 02/15/2021 02:33:00 PM EDT [facility] ([facility] Name Value Range [...] HCT IS 5% LESS SOURCE FOR DATA: [employer] 1800 OPERATION MANUAL( AUTOMATED BLOOD COUNTS AND [...] 2-19 YEARS EXCLUSIVE. Trig 165 mg/dL 40-200 [facility] ([facility] NORMAL RANGES [...] HCT IS 5% LESS SOURCE FOR DATA: [employer] 1800 OPERATION MANUAL( AUTOMATED BLOOD COUNTS AND [...] HCT IS 5% LESS SOURCE FOR DATA: [employer] 1800 OPERATION MANUAL( AUTOMATED BLOOD COUNTS AND [...] 2-19 YEARS EXCLUSIVE. Cho/HDL Ratio 3.0 CALC [employer] ([facility] NORMAL RANGES Age WBC RBC [...] HCT IS 5% LESS SOURCE FOR DATA: [employer] DYN 1800 OPERATION MANUAL( AUTOMATED BLOOD COUNTS [...] 2-19 YEARS EXCLUSIVE. ID Date Data Source [id number] 02/15/2021 02:33:00 PM EDT [facility] ([facility] Name Value Range Interpretation Code Description Data Izabela rce(s) Supporting Document(s) Glu 237 mg/dL 70-110 Above high normal [facility] ([facility] NORMAL RANGES Age [...] HCT IS 5% LESS SOURCE FOR DATA: [employer] 1800 OPERATION MANUAL( AUTOMATED BLOOD COUNTS AND [...] BUN 27 mg/dL 8-23 Above high normal [facility] ([facility] NORMAL RANGES Age [...] HCT IS 5% LESS SOURCE FOR DATA: [employer] 1800 OPERATION MANUAL( AUTOMATED BLOOD COUNTS AND [...] 2-19 YEARS EXCLUSIVE. BUN/Creatinine Ratio 32.8 CALC [facility] ([facility] NORMAL RANGES Age [...] HCT IS 5% LESS SOURCE FOR DATA: [employer] DYN 1800 OPERATION MANUAL( AUTOMATED BLOOD COUNTS [...] HCT IS 5% LESS SOURCE FOR DATA: [employer] 1800 OPERATION MANUAL( AUTOMATED BLOOD COUNTS AND [...] YEARS EXCLUSIVE. K 4.3 mmol/L 3.5-5.1 AN[facility] ([facility] NORMAL RANGES Age WBC [...] HCT IS 5% LESS SOURCE FOR DATA: [employer] 1800 OPERATION MANUAL( AUTOMATED BLOOD COUNTS AND [...] 2-19 YEARS EXCLUSIVE. Na 139 mmol/L 136-145 [facility] ([facility] NORMAL RANGES [...] HCT IS 5% LESS SOURCE FOR DATA: [employer] 1800 OPERATION MANUAL( AUTOMATED BLOOD COUNTS AND [...] HCT IS 5% LESS SOURCE FOR DATA: [employer] 1800 OPERATION MANUAL( AUTOMATED BLOOD COUNTS AND [...] Co2 33.1 mmol/L 22.0-29.0 Above high normal [facility] ([facility] NORMAL RANGES Age [...] HCT IS 5% LESS SOURCE FOR DATA: [employer] 1800 OPERATION MANUAL( AUTOMATED BLOOD COUNTS AND [...] 2-19 YEARS EXCLUSIVE. CA 9.5 mg/dL 8.6-10.2 [facility] ([facility] NORMAL RANGES [...] HCT IS 5% LESS SOURCE FOR DATA: [employer] 1800 OPERATION MANUAL( AUTOMATED BLOOD COUNTS AND [...] HCT IS 5% LESS SOURCE FOR DATA: [employer] 1800 OPERATION MANUAL( AUTOMATED BLOOD COUNTS AND [...] 2-19 YEARS EXCLUSIVE. Alb 4.0 g/dL 3.4-4.8 [facility] ([facility] NORMAL RANGES [...] HCT IS 5% LESS SOURCE FOR DATA: [employer] 1800 OPERATION MANUAL( AUTOMATED BLOOD COUNTS AND [...] HCT IS 5% LESS SOURCE FOR DATA: [employer] 1800 OPERATION MANUAL( AUTOMATED BLOOD COUNTS AND [...] 2-19 YEARS EXCLUSIVE. Alp 61.9 U/L 35-129 [facility] ([facility] NORMAL RANGES [...] HCT IS 5% LESS SOURCE FOR DATA: [employer] DYN 1800 OPERATION MANUAL( AUTOMATED BLOOD COUNTS [...] YEARS EXCLUSIVE. Ast (Sgot) 9 U/L 0-40 [facility] NORMAL RANGES Age WBC [...] HCT IS 5% LESS SOURCE FOR DATA: [employer] 1800 OPERATION MANUAL( AUTOMATED BLOOD COUNTS AND [...] HCT IS 5% LESS SOURCE FOR DATA: [employer] 1800 OPERATION MANUAL( AUTOMATED BLOOD COUNTS AND [...] HCT IS 5% LESS SOURCE FOR DATA: [employer] DYN 1800 OPERATION MANUAL( AUTOMATED BLOOD COUNTS [...] 2-19 YEARS EXCLUSIVE. Tbili 0.22 mg/dL 0.0-1.2 [facility] NORMAL RANGES Age WBC [...] HCT IS 5% LESS SOURCE FOR DATA: [employer] 1800 OPERATION MANUAL( AUTOMATED BLOOD COUNTS AND [...] HCT IS 5% LESS SOURCE FOR DATA: [employer] 1800 OPERATION MANUAL( AUTOMATED BLOOD COUNTS AND [...] [facility] CKD-EPI eGFR Non-Afr. Ecuadorean 70 # [facility] ([facility] CKD-EPI ID Date Data Source [id number] 11/11/2020 02:21:00 PM EST [facility] ([facility] Name Value Range [...] HCT IS 5% LESS SOURCE FOR DATA: [employer] 1800 OPERATION MANUAL( AUTOMATED BLOOD COUNTS AND [...] HCT IS 5% LESS SOURCE FOR DATA: [employer] 1800 OPERATION MANUAL( AUTOMATED BLOOD COUNTS AND [...] 2-19 YEARS EXCLUSIVE. LDL_C 128 Calc 75-129 [facility] ([facility] NORMAL RANGES [...] HCT IS 5% LESS SOURCE FOR DATA: [employer] 1800 OPERATION MANUAL( AUTOMATED BLOOD COUNTS AND [...] 2-19 YEARS EXCLUSIVE. Cho/HDL Ratio 3.0 Calc [facility] ([facility] NORMAL RANGES Age WBC RBC HGB [...] HCT IS 5% LESS SOURCE FOR DATA: [employer] 1800 OPERATION MANUAL( AUTOMATED BLOOD COUNTS AND [...] 2-19 YEARS EXCLUSIVE. ID Date Data Source [id number] 11/11/2020 02:21:00 PM EST [facility] ([facility] [facility] Name Value Range Interpretation Code Description Data Izabela rce(s) Supporting Document(s) Hemoglobin A1c/Hemoglobin.total in Blood 7.1 % 4.50-6.20 Above high normal [facility] ([facility] ID Date Data Source [id number] 11/11/2020 02:21:00 PM EST [facility] (Famil y [...] HCT IS 5% LESS SOURCE FOR DATA: [employer] 1800 OPERATION MANUAL( AUTOMATED BLOOD COUNTS AND [...] 28 mg/dL 8-23 Above high normal [facility] ([facility] NORMAL RANGES Age WBC [...] HCT IS 5% LESS SOURCE FOR DATA: [employer] 1800 OPERATION MANUAL( AUTOMATED BLOOD COUNTS AND [...] 2-19 YEARS EXCLUSIVE. Creat 0.8 mg/dL 0.5-1.0 [facility] ([facility] NORMAL RANGES [...] HCT IS 5% LESS SOURCE FOR DATA: [employer] DYN 1800 OPERATION MANUAL( AUTOMATED BLOOD COUNTS [...] 2-19 YEARS EXCLUSIVE. BUN/Creatinine Ratio 35.0 CALC [facility] ([facility] NORMAL RANGES Age [...] HCT IS 5% LESS SOURCE FOR DATA: [employer] 1800 OPERATION MANUAL( AUTOMATED BLOOD COUNTS AND [...] HCT IS 5% LESS SOURCE FOR DATA: [employer] 1800 OPERATION MANUAL( AUTOMATED BLOOD COUNTS AND [...] 2-19 YEARS EXCLUSIVE. Na 139 mmol/L 136-145 [facility] NORMAL RANGES Age WBC [...] HCT IS 5% LESS SOURCE FOR DATA: [employer] DYN 1800 OPERATION MANUAL( AUTOMATED BLOOD COUNTS [...] 2-19 YEARS EXCLUSIVE. CL 100.7 mmol/L 98.0-107.0 [facility] ([facility] NORMAL RANGES Age WBC RBC HGB [...] HCT IS 5% LESS SOURCE FOR DATA: [employer] 1800 OPERATION MANUAL( AUTOMATED BLOOD COUNTS AND [...] HCT IS 5% LESS SOURCE FOR DATA: [employer] DYN 1800 OPERATION MANUAL( AUTOMATED BLOOD COUNTS [...] 2-19 YEARS EXCLUSIVE. CA 8.9 mg/dL 8.6-10.2 [facility] ([facility] NORMAL RANGES [...] HCT IS 5% LESS SOURCE FOR DATA: [employer] 1800 OPERATION MANUAL( AUTOMATED BLOOD COUNTS AND [...] HCT IS 5% LESS SOURCE FOR DATA: [employer] 1800 OPERATION MANUAL( AUTOMATED BLOOD COUNTS AND [...] HCT IS 5% LESS SOURCE FOR DATA: [employer] 1800 OPERATION MANUAL( AUTOMATED BLOOD COUNTS AND [...] 2-19 YEARS EXCLUSIVE. A/G Ratio 2.4 CALC [employer] ([facility] NORMAL RANGES [...] HCT IS 5% LESS SOURCE FOR DATA: [employer] DYN 1800 OPERATION MANUAL( AUTOMATED BLOOD COUNTS [...] HCT IS 5% LESS SOURCE FOR DATA: [employer] 1800 OPERATION MANUAL( AUTOMATED BLOOD COUNTS AND [...] AGED 2-19 YEARS EXCLUSIVE. Globulin 1.6 CALC [facility] ([facility] NORMAL RANGES [...] HCT IS 5% LESS SOURCE FOR DATA: [employer] 1800 OPERATION MANUAL( AUTOMATED BLOOD COUNTS AND [...] YEARS EXCLUSIVE. Alt (SGPT) 9 U/L 0-41 [facility] ([facility] NORMAL RANGES Age WBC [...] HCT IS 5% LESS SOURCE FOR DATA: [employer] DYN 1800 OPERATION MANUAL( AUTOMATED BLOOD COUNTS [...] HCT IS 5% LESS SOURCE FOR DATA: [employer] 1800 OPERATION MANUAL( AUTOMATED BLOOD COUNTS AND [...] 2-19 YEARS EXCLUSIVE. Tbili 0.37 mg/dL 0.0-1.2 [facility] ([facility] NORMAL RANGES Age WBC [...] HCT IS 5% LESS SOURCE FOR DATA: [employer] 1800 OPERATION MANUAL( AUTOMATED BLOOD COUNTS AND [...] HCT IS 5% LESS SOURCE FOR DATA: [employer] 1800 OPERATION MANUAL( AUTOMATED BLOOD COUNTS AND [...] HCT IS 5% LESS SOURCE FOR DATA: [employer] 1800 OPERATION MANUAL( AUTOMATED BLOOD COUNTS AND [...] YEARS EXCLUSIVE. eGFR 82 # [facility] ( [facility] CKD-EPI eGFR Non-Afr. Ecuadorean 71 # [facility] ([facility] CKD-EPI ID Date Data Source [id number] 11/11/2020 02:21:00 PM EST [facility] ([facility] Name Value Range Interpretation Code Description Data Izabela rce(s) Supporting Document(s) WBC 8.3 10E3/uL 4.1-10.9 [facility] ([facility] NORMAL RANGES Age WBC [...] HCT IS 5% LESS SOURCE FOR DATA: [employer] DYN 1800 OPERATION MANUAL( AUTOMATED BLOOD COUNTS [...] RBC 3.98 10E6/uL 4.20-6.30 Below low normal [facility] ([facility] NORMAL RANGES Age [...] HCT IS 5% LESS SOURCE FOR DATA: [employer] DYN 1800 OPERATION MANUAL( AUTOMATED BLOOD COUNTS [...] HGB 11.3 g/dL 12.0-18.0 Below low normal [facility] ( [facility] NORMAL RANGES Age [...] HCT IS 5% LESS SOURCE FOR DATA: [employer] 1800 OPERATION MANUAL( AUTOMATED BLOOD COUNTS AND [...] 2-19 YEARS EXCLUSIVE. HCT 37.0 % 37.0-51.0 [facility] ([facility] NORMAL RANGES [...] HCT IS 5% LESS SOURCE FOR DATA: [employer] 1800 OPERATION MANUAL( AUTOMATED BLOOD COUNTS AND [...] HCT IS 5% LESS SOURCE FOR DATA: [facility] 1800 OPERATION MANUAL( AUTOMATED BLOOD COUNTS AND [...] YEARS EXCLUSIVE. MCH 28.4 pg 26.0-32.0 [facility] NORMAL RANGES Age WBC [...] HCT IS 5% LESS SOURCE FOR DATA: [employer] 1800 OPERATION MANUAL( AUTOMATED BLOOD COUNTS AND [...] HCT IS 5% LESS SOURCE FOR DATA: [employer] DYN 1800 OPERATION MANUAL( AUTOMATED BLOOD COUNTS [...] YEARS EXCLUSIVE. PLT 311 10E3/uL 140-440 [facility] ([facility] NORMAL RANGES Age WBC [...] HCT IS 5% LESS SOURCE FOR DATA: [employer] 1800 OPERATION MANUAL( AUTOMATED BLOOD COUNTS AND [...] 2-19 YEARS EXCLUSIVE. RDW-CV 13.8 % 11.5-14.5 [facility] ([facility] NORMAL RANGES Age WBC [...] HCT IS 5% LESS SOURCE FOR DATA: [employer] 1800 OPERATION MANUAL( AUTOMATED BLOOD COUNTS AND [...] 2-19 YEARS EXCLUSIVE. Lym% 10.2 % 10.0-58.5 [facility] ([facility] NORMAL RANGES [...] HCT IS 5% LESS SOURCE FOR DATA: [employer] 1800 OPERATION MANUAL( AUTOMATED BLOOD COUNTS AND [...] HCT IS 5% LESS SOURCE FOR DATA: [facility] 1800 OPERATION MANUAL( AUTOMATED BLOOD COUNTS AND [...] 2-19 YEARS EXCLUSIVE. Lym# 0.8 10E3/uL 0.6-4.1 [facility] ([facility] NORMAL RANGES Age WBC [...] 2-19 YEARS EXCLUSIVE. MXD% 4.7 % 0.1-24.0 [facility] NORMAL RANGES [...] HCT IS 5% LESS SOURCE FOR DATA: [employer] 1800 OPERATION MANUAL( AUTOMATED BLOOD COUNTS AND [...] 2-19 YEARS EXCLUSIVE. MXD# 0.4 10E3/uL 0.0-1.8 [facility] ([facility] NORMAL RANGES Age WBC [...] HCT IS 5% LESS SOURCE FOR DATA: [facility] 1800 OPERATION MANUAL( AUTOMATED BLOOD COUNTS AND [...] 2-19 YEARS EXCLUSIVE. Neut# 7.1 % 2.0-7.8 [facility] ([facility] NORMAL [...] 2-19 YEARS EXCLUSIVE. MPV 11.3 fL 9.0-13.0 [facility] ([facility] NORMAL RANGES [...] HCT IS 5% LESS SOURCE FOR DATA: [facility] 1800 OPERATION MANUAL( AUTOMATED BLOOD COUNTS AND [...] 2-19 YEARS EXCLUSIVE. ID Date Data Source [id number] 10/07/2020 01:51:00 PM EST [facility] ([facility] Name Value Range Interpretation Code Description Data Izabela rce(s) Supporting Document(s) Comment 1 Laboratory test result [facility] PAT[facility]IC[facility] ([facility] NORMAL RANGES Routine Non- Anticoagulant Therapy = 0.9 - 1.1 Routine Anticoagulat Therapy = 2.0 - 3.0 High Risk Anticoagulant Therapy = 3.0 - 4.5 QC Check Laboratory test result [facility] ([facility] NORMAL RANGES Routine Non- Anticoagulant Therapy = 0.9 - 1.1 Routine Anticoagulat Therapy = 2.0 - 3.0 High Risk Anticoagulant Therapy = 3.0 - 4.5 Prothrombin Time-Therapy 15.4 MED[facility] T ([facility] NORMAL RANGES Routine Non- Anticoagulant Therapy = 0.9 - 1.1 Routine Anticoagulat Therapy = 2.0 - 3.0 High Risk Anticoagulant Therapy = 3.0 - 4.5 Dosage Laboratory test result [facility] ([facility] NORMAL RANGES Routine Non- Anticoagulant Therapy = 0.9 - 1.1 Routine Anticoagulat Therapy = 2.0 - 3.0 High Risk Anticoagulant Therapy = 3.0 - 4.5 INR in Platelet poor plasma by Coagulation assay 1.3 [facility] ([facility] NORMAL RANGES Routine Non- Anticoagulant Therapy = 0.9 - 1.1 Routine Anticoagulat Therapy = 2.0 - 3.0 High Risk Anticoagulant Therapy = 3.0 - 4.5 Recheck Laboratory test result [facility] ([facility] NORMAL RANGES Routine Non- Anticoagulant Therapy = 0.9 - 1.1 Routine Anticoagulat Therapy = 2.0 - 3.0 High Risk Anticoagulant Therapy = 3.0 - 4.5 ID Date Data Source [id number] 09/29/2020 01:45:00 PM EST [facility] ([facility] Name Value Range Interpretation Code Description Data Izabela rce(s) Supporting Document(s) Prothrombin Time-Therapy 12.4 [facility] ([facility] INR in Platelet poor plasma by Coagulation assay 1.0 [facility] ([facility] Dosage Laboratory test result [facility] ([facility] Recheck Laboratory test result [facility] ([facility] ID Date Data Source [id number] 09/26/2020 08:59:00 PM EST [facility] ([facility] Name Value Range Interpretation Code Description Data Izabela rce(s) Supporting Document(s) Prothrombin Time 13.2 s 12.5-14.3 Normal (applies to non-numeric results) [facility] ([facility] Partial Thromboplastin Time 28.0 s 24.2-38.5 Norm al (applies to non-numeric results) [facility] ([facility] ) Inr 0.98 Normal (applies to non-numeric resul ts) [facility] ([facility] THERAPUTIC HUMAN INR VALUES INDICATIONS NORMAL RANGES PROPHYLAXIS/TREATMENT OF: VENOUS THROMBOSIS 2.0-3.0 PULMONARY EMBOLISM 2.0-3.0 PREVENTION OF SYSTEMIC EMBOLISM FROM: TISSUE HEART VALVES 2.0-3.0 ACUTE MYOCARDIAL INFARCTION 2.0-3.0 VALVULAR HEART DISEASE 2.0-3.0 ATRIAL FIBRILLATION 2.0-3.0 MECHANICAL VALVES(HIGH RISK) 2.5-3.5 RECURRENT MYOCARDIAL INFARCTION 2.5-3.5 ID Date Data Source [id number] 09/26/2020 08:43:00 PM EST MEDENT ([facility] Name Value Range Interpretation Code Description Data Izabela rce(s) Supporting Document(s) Laboratory test finding (navigational concept) 0.00 ng/mL 0 .00-0.08 Normal (applies to non-numeric results) [facility] ([facility] ID Date Data Source [id number] 09/26/2020 08:43:00 PM EST MEDENT ([facility] Name Value Range Interpretation Code Description Data Izabela rce(s) Supporting Document(s) Troponin I.cardiac [Mass/volume] in Serum or Plasma Laboratory test result MEDENT ([facility] Laboratory test finding (navigational concept) 0.00 ng/mL 0 .00-0.08 Normal (applies to non-numeric results) [facility] ([facility] ID Date Data Source [id number] 09/26/2020 08:42:00 PM EST MEDENT ([facility] Name Value Range Interpretation Code Description Data Izabela rce(s) Supporting Document(s) Blood Culture Laboratory test result Normal (applies t o non-numeric results) MEDENT ([facility] <content>GRAM STAIN G [...]
<content>CLIDAMYCIN SENSITIVE.</content>
<content></content> ID Date Data Source [id number] 09/26/2020 08:42:00 PM EST MEDENT ([facility] Name Value Range Interpretation Code Description Data Izabela rce(s) Supporting Document(s) Natriuretic peptide.B prohormone N-Terminal [Mass/volu me] in Serum or Plasma 870 pg/mL Above high normal MEDENT ([facility] Thyrotropin [Units/volume] in Serum or Plasma 2.140 uIU/ML 0. 358-3.740 Normal (applies to non-numeric results) MED[facility] ([facility] ID Date Data Source [id number] 09/26/2020 08:42:00 PM EST MEDENT ([facility] Name Value Range Interpretation Code Description Data Izabela rce(s) Supporting Document(s) Blood Urea Nitrogen 17 mg/dL 7-18 Normal (applies to non-nume karyn results) MEDENT ([facility] Glucose, Fasting 148 mg/dL 70-100 Above high normal M EDENT ([facility] Creatinine For GFR 0.64 mg/dL 0.55-1.30 Normal (applies to non -numeric results) MED[facility] ([facility] Glomerular Filtration Rate Laboratory test result Normal (applies to non- numeric results) [facility] ([facility] ) <content>Units are mL/min/1.73 m2</content>
<content></content>
<content>Chronic Kidney Disease Staging per NKF:</content>
<content></content>
<content>Stage I & II GFR >=60 Normal to Mildly Decreased</content>
<content>Stage III GFR 30- 59 Moderately Decreased</content>
<content>Stage IV GFR 15-29 Severely Decreased</content>
<content>Stage V GFR <15 Very Little GFR Left</content>
<content>ESRD GFR <15 on LAYER UP</content>
<content></content> Potassium Serum 4.0 meq/L 3.5-5.1 Normal (applies to non-numeric results) MED[facility] ([facility] Sodium Level 139 meq/L 136-145 Normal (applies to non-numeric res ults) [facility] ([facility] Carbon Dioxide Level 32 meq/L 21-32 Normal (applies to non-num yassine results) [facility] ([facility] Chloride Level 101 meq/L 98-107 Normal (applies to non-numeric r esults) MED[facility] ([facility] Anion Gap 6 meq/L 8-16 Below low normal [facility] ( [facility] Calcium Level 9.0 mg/dL 8.8-10.2 Normal (applies to non-numeric re sults) [facility] ([facility] ID Date Data Source [id number] 09/26/2020 08:42:00 PM EST MEDENT ([facility] Name Value Range Interpretation Code Description Data Izabela rce(s) Supporting Document(s) Alt/SGPT 20 U/L 12-78 Normal (applies to non-numeric resul ts) MED[facility] ([facility] Ast/Sgot 9 U/L 7-37 Normal (applies to non-numeric resul ts) MED[facility] ([facility] Alkaline Phosphatase 64 U/L 45-117 Normal (applies to non-num yassine results) MED[facility] ([facility] Bilirubin,Total 0.8 mg/dL 0.2-1.0 Normal (applies to non-numeric results) [facility] ([facility] Total Protein 6.1 GM/DL 6.4-8.2 Below low normal MEDEN T ([facility] Bilirubin,Direct 0.3 mg/dL 0.0-0.2 Above high normal M EDENT ([facility] Albumin/Globulin Ratio 1.3 1.2-2.2 Normal (applies to non-n umeric results) [facility] ([facility] Albumin 3.4 GM/DL 3.2-5.2 Normal (applies to non-numeric resul ts) [facility] ([facility] ID Date Data Source [id number] 09/26/2020 08:42:00 PM EST MEDENT ([facility] Name Value Range Interpretation Code Description Data Izabela rce(s) Supporting Document(s) CK-MB Value Mass 1.0 ng/mL Normal (applies to non-numeric results) [facility] ([facility] CPK Creatine Phosphokinase 28 U/L 26-192 Samantha l (applies to non-numeric results) [facility] ([facility] ) Troponin I Laboratory test result Normal (applies to non-n umeric results) [facility] ([facility] <content>Troponin I Reference Interval f or Siemens [place] LOCI:</content>
<content></content>
<content>99th Percentile= 0.00-0.045 ng/ml</content>
<content></content>
<content>Risk Stratification:</content>
<content><= 0.10 ng/ml Decreased Risk for Adverse Clinical</content>
<content>Events.</content>
<content>0.10-1.50 ng/ml Increased Risk for Adverse Clinical</content>
<content>Events. Evaluation of additional</content>
<content>criterion and/or repeat testing in 2-6</content>
<content>hours is suggested to rule out myocardial</content>
<content>damage.</content>
<content>>= 1.50 ng/ml Indicative of Myocardial Injury.</content>
<content></content> MB/CK Relative Index 3.57 Normal (applies to non-num yassine results) [facility] <content>DIAGNOSIS CRITERIA</content>
<content>MMB ng/ml Relative Index (RI)</content>
<content>NON-AMI < or = 5 N/A</content>
<content>ALANIS ZONE > 5 < or = 4</content>
<content>AMI > 5 > 4</content>
<content></content> ID Date Data Source [id number] 09/26/2020 08:42:00 PM EST [facility] ([facility] Name Value Range Interpretation Code Description Data Izabela rce(s) Supporting Document(s) Lactate [Mass/volume] in Serum or Plasma 0.7 mmol/L 0.4-2.0 Normal (applies to non-numeric results) [facility] ([facility]) Y/N query for Sepsis Lactate Rule: Y ID Date Data Source [id number] 09/26/2020 08:42:00 PM EST MED[facility] ([facility] [...] results) [facility] ([facility] ) [place] % 9.3 % 0.0-5.0 Above high normal [facility] ([facility] Lymph % 14.2 % 24.0-44.0 Below low normal [facility] ( [facility] Baso % 0.5 % 0.0-1.0 Normal (applies to non-numeric resul ts) [facility] ([facility] Eos % 1.1 % 0.0-3.0 Normal (applies to non-numeric resul ts) [facility] ([facility] Nucleated Red Blood Cell % 0.0 % 0-0 Normal (applies to n on-numeric results) [facility] ([facility] Immature Granulocyte % 0.8 % 0-3.0 Normal (applies to non-n umeric results) [facility] ([facility] Neutrophils # 10.0 10 1.5-8.5 Above high normal MEDE NT ([facility] Lymph # 1.9 10 1.5-5.0 Normal (applies to non-numeric resul ts) [facility] ([facility] [place] # 1.3 10 0.0-0.8 Above high normal [facility] ([facility] Eos # 0.2 10 0.0-0.5 Normal (applies to non-numeric resul ts) [facility] ([facility] Baso # 0.1 10 0.0-0.2 Normal (applies to non-numeric resul ts) [facility] ([facility] ID Date Data Source [id number] 09/26/2020 08:26:00 PM EST MEDENT ([facility] Name Value Range Interpretation Code Description Data Izabela rce(s) Supporting Document(s) Laboratory test finding (navigational concept) 7.325 units 7 .350-7.450 Below low normal [facility] ([facility] ) Laboratory test finding (navigational concept) 60.9 MMHG 3 5.0-45.0 Above upper panic limits [facility] ([facility] ) Laboratory test finding (navigational concept) 140.0 MMHG 8 0-105 Above high normal [facility] ([facility] ) Laboratory test finding (navigational concept) 34.0 mmol/L 2 3.0-27.0 Above high normal [facility] ([facility] ) Laboratory test finding (navigational concept) 31.7 mmol/L 2 2.0-26.0 Above high normal [facility] ([facility] ) Laboratory test finding (navigational concept) 6.0 mmol/L Above high normal [facility] ([facility] Laboratory test finding (navigational concept) 99 % 95-98 Above high normal [facility] ([facility] ID Date Data Source [id number] 09/11/2020 03:17:00 PM EDT MED[facility] ([facility] Name Value Range Interpretation Code Description Data Izabela rce(s) Supporting Document(s) INR in Platelet poor plasma by Coagulation assay 1.1 MED[facility] ([facility] Prothrombin Time-Therapy 12.7 MEDEN T ([facility] Recheck Laboratory test result [facility] ([facility] Comment 1 Laboratory test result ME DENT ([facility] Dosage Laboratory test result [facility] ([facility] ID Date Data Source [id number] 08/26/2020 11:32:00 AM EDT MED[facility] ([facility] Name Value Range Interpretation Code Description Data Izabela rce(s) Supporting Document(s) Prothrombin Time-Therapy 24.3 MEDEN T ([facility] INR in Platelet poor plasma by Coagulation assay 2.0 [facility] ([facility] Dosage Laboratory test result [facility] ([facility] Recheck Laboratory test result [facility] ([facility] Procedure Social History Code Duration Value Status Description Data Source(s ) Smoking 09/29/2021 12:00:00 AM EST - 11/20/2009 12:00:00 AM EST Patient is a former smoker completed Patient is a former smoker [facility] ([facility], ) Alcohol intake 05/18/2021 12:00:00 AM EDT Ex-drinker (finding) comp leted Ex- drinker (finding) [facility] Alcohol intake 10/08/2020 12:00:00 AM EST Not Currently completed [facility] Cigarette pack-years 10/08/2020 12:00:00 AM EST UNK completed [facility] Cigarettes smoked current (pack per day) - Reported 10/08/20 12:00:00 AM EST UNK completed [facility] Smoking 10/08/2020 12:00:00 AM EST Former smoker completed Former smoker [facility] Alcohol intake 09/23/2020 12:00:00 AM EST Not Currently completed [facility] Cigarette pack-years 09/23/2020 12:00:00 AM EST UNK completed [facility] Cigarettes smoked current (pack per day) - Reported 09/23/20 12:00:00 AM EST UNK completed [facility] Smoking 09/23/2020 12:00:00 AM EST Former smoker completed Former smoker [facility] Tobacco use and exposure 09/22/2020 12:00:00 AM EST Never used co mpleted Never used [facility] Cigarette pack-years 09/22/2020 12:00:00 AM EST UNK completed [facility] Cigarettes smoked current (pack per day) - Reported 09/22/20 12:00:00 AM EST UNK completed [facility] Smoking 09/22/2020 12:00:00 AM EST Former smoker completed Former smoker [facility] Vital Signs ID Date Data Source UNK Name Value Range Interpretation Code Description Data Source(s) Cosby body weight 105 [lb_av] 105 [lb_av] YIEN T ([facility], ) Systolic blood pressure 138 mm[Hg] 138 mm[Hg] Luis SIEGEL ([facility], ) Diastolic blood pressure 62 mm[Hg] 62 mm[Hg] MEDPOLO ([facility], ) Heart rate 95 /min 95 /min ANTHONY ([facility], ) Oxygen saturation in Arterial blood by Pulse oximetry 981.5 % 981.5 % [facility] ([facility]) Body weight 66.679 kg 66.679 kg [facility] ([facility]) Body height 61 [in_i] 61 [in_i] [facility] ([facility]) 5'1" Body weight 147.00 [lb_av] 147.00 [lb_av] MEDEN T ([facility]) Body mass index (BMI) [Ratio] 27.8 kg/m2 27.8 k g/m2 [facility] ([facility]) Body surface area Derived from formula 1.66 m2 1.66 m2 [facility] ([facility]) Heart rate 80 /min 80 /min MEDPOLO ([facility] Systolic blood pressure 122 mm[Hg] 122 mm[Hg] M EDENT ([facility] Respiratory rate 16 /min 16 /min [facility] Body height 62 [in_i] 62 [in_i] MEDENT ([facility] 5'2" Cosby body weight 110 [lb_av] 110 [lb_av] MEDEN T ([facility] Oxygen saturation in Arterial blood by Pulse oximetry 98 % 98 % MEDPOLO ([facility] (On O2 @ 1.5 LPM [place]) Diastolic blood pressure 54 mm[Hg] 54 mm[Hg] MED[facility] ([facility] Body temperature 98.1 [degF] 98.1 [degF] [facility] ([facility] Body weight 134.00 [lb_av] 134.00 [lb_av] MEDEN T ([facility] Systolic blood pressure 122 mm[Hg] 122 mm[Hg] M EDENT ([facility] Respiratory rate 18 /min 18 /min MEDPOLO ( [facility] Diastolic blood pressure 62 mm[Hg] 62 mm[Hg] MED[facility] ([facility] Oxygen saturation in Arterial blood by Pulse oximetry 97 % 97 % ANTHONY ([facility] Body temperature 98.5 [degF] 98.5 [degF] [facility] ([facility] Heart rate 67 /min 67 /min [facility] ([facility] Systolic blood pressure 120 mm[Hg] 120 mm[Hg] M EDENT ([facility], ) Diastolic blood pressure 80 mm[Hg] 80 mm[Hg] [facility] ([facility], ) Heart rate 110 /min 110 /min [facility] Oxygen saturation in Arterial blood by Pulse oximetry 973 % 973 % [facility] Body height 61 [in_i] 61 [in_i] MEDENT ([facility], ) 5'1" Cosby body weight 105 [lb_av] 105 [lb_av] MEDEN T ([facility], ) Diastolic blood pressure 64 mm[Hg] 64 mm[Hg] [facility] ([facility] Heart rate 90 /min 90 /min [facility] ([facility] Respiratory rate 18 /min 18 /min [facility] ( [facility] Systolic blood pressure 124 mm[Hg] 124 mm[Hg] M EDENT ([facility] Body temperature 97.0 [degF] 97.0 [degF] [facility] ([facility] Oxygen saturation in Arterial blood by Pulse oximetry 98 % 98 % [facility] ([facility] Systolic [...] Systolic blood pressure 112 mm[Hg] 112 mm[Hg] [facility] Diastolic blood pressure 58 mm[Hg] 58 mm[Hg] [facility] Oxygen saturation in Arterial blood by Pulse oximetry 98 % 98 % [facility] Heart rate 82 /min 82 /min [facility] Body height 160 cm 160 cm [facility] Body weight 63.957 kg 63.957 kg [facility] Body mass index (BMI) [Ratio] 24.98 kg/m2 24.98 kg/m2 [facility] Body height 61 [in_i] 61 [in_i] MEDENT ([facility]) 5'1" Body mass index (BMI) [Ratio] 27.2 kg/m2 27.2 k g/m2 [facility] ([facility]) Cosby body weight 105 [lb_av] 105 [lb_av] MEDEN T ([facility]) Body weight 65.318 kg 65.318 kg [facility] ([facility]) Body surface area Derived from formula 1.64 m2 1.64 m2 [facility] ([facility]) Body weight 144.00 [lb_av] 144.00 [lb_av] MEDEN T ([facility]) Body height 61 [in_i] 61 [in_i] MED[facility] ([facility]) 5'1" Body weight 144.00 [lb_av] 144.00 [lb_av] MEDEN T ([facility]) Body mass index (BMI) [Ratio] 27.2 kg/m2 27.2 k g/m2 [facility] ([facility]) Cosby body weight 105 [lb_av] 105 [lb_av] MEDEN T ([facility]) Body weight 65.318 kg 65.318 kg [facility] Body surface area Derived from formula 1.64 m2 1.64 m2 [facility] ([facility]) Respiratory rate 16 /min 16 /min MED[facility] ( [facility] Diastolic blood pressure 78 mm[Hg] 78 mm[Hg] MED[facility] ([facility] Heart rate 82 /min 82 /min [facility] ([facility] Body height 62 [in_i] 62 [in_i] ANTHONY ([facility] 5'2" Body weight 144.00 [lb_av] 144.00 [lb_av] MEDEN T ([facility] Cosby body weight 110 [lb_av] 110 [lb_av] MEDEN T ([facility] Body mass index (BMI) [Ratio] 26.3 kg/m2 26.3 k g/m2 ANTHONY ([facility] Oxygen saturation in Arterial blood by Pulse oximetry 98 % 98 % ANTHONY ([facility] (On O2 @ 1.5 LPM [place]) Systolic blood pressure 146 mm[Hg] 146 mm[Hg] Luis SIEGEL ([facility] Body temperature 97.7 [degF] 97.7 [degF] ANTHONY ([facility] Systolic blood pressure 138 mm[Hg] 138 mm[Hg] [facility] Diastolic blood pressure 68 mm[Hg] 68 mm[Hg] [facility] Heart rate 94 /min 94 /min [facility] Body height 160 cm 160 cm [facility] Body weight 66.679 kg 66.679 kg [facility] Body mass index (BMI) [Ratio] 26.04 kg/m2 26.04 kg/m2 [facility] Oxygen saturation in Arterial blood by Pulse oximetry 97 % 97 % [facility] Body weight 140.00 [lb_av] 140.00 [lb_av] MEDEN T ([facility] Cosby body weight 110 [lb_av] 110 [lb_av] MEDEN T ([facility] Systolic blood pressure 134 mm[Hg] 134 mm[Hg] M CHRISTAL ([facility] Diastolic blood pressure 76 mm[Hg] 76 mm[Hg] ANTHONY ([facility] Body temperature 97.4 [degF] 97.4 [degF] ANTHONY ([facility] Heart rate 100 /min 100 /min [facility] ([facility] Respiratory rate 20 /min 20 /min [facility] ( [facility] Body height 62 [in_i] 62 [in_i] [facility] 5'2" Body mass index (BMI) [Ratio] 25.6 kg/m2 25.6 k g/m2 [facility] ([facility] Oxygen saturation in Arterial blood by Pulse oximetry 98 % 98 % [facility] ([facility] Body height 61 [in_i] 61 [in_i] MEDENT ([facility], ) 5'1" Cosby body weight 105 [lb_av] 105 [lb_av] MEDEN T ([facility], ) Systolic blood pressure 118 mm[Hg] 118 mm[Hg] [facility] Diastolic blood pressure 82 mm[Hg] 82 mm[Hg] [facility] ([facility]) Heart rate 103 /min 103 /min [facility] ([facility]) Oxygen saturation in Arterial blood by Pulse oximetry 98 % 98 % [facility] ([facility], ) Systolic blood pressure 122 mm[Hg] 122 mm[Hg] M EDENT ([facility] Diastolic blood pressure 66 mm[Hg] 66 mm[Hg] MED[facility] ([facility] Body temperature 99.6 [degF] 99.6 [degF] [facility] ([facility] Heart rate 58 /min 58 /min [facility] ([facility] Respiratory rate 16 /min 16 /min [facility] ( [facility] Body height 62 [in_i] 62 [in_i] [facility] 5'2" [place]by body weight 110 [lb_av] 110 [lb_av] MEDEN T ([facility] Oxygen saturation in Arterial blood by Pulse oximetry 97 % 97 % MED[facility] ([facility] (On O2 @ 1 LPM [place]) Systolic blood pressure 118 mm[Hg] 118 mm[Hg] M CHRISTAL ([facility] Body height 62 [in_i] 62 [in_i] MEDPOLO ([facility] 5'2" Diastolic blood pressure 62 mm[Hg] 62 mm[Hg] MEDPOLO ([facility] Body temperature 99.6 [degF] 99.6 [degF] MEDPOLO ([facility] Heart rate 98 /min 98 /min [facility] ([facility] Respiratory rate 18 /min 18 /min MEDPOLO ( [facility] Cosby body weight 110 [lb_av] 110 [lb_av] MEDEN T ([facility] Oxygen saturation in Arterial blood by Pulse oximetry 96 % 96 % ANTHONY ([facility] (On O2 @ 1 LPM [place]) Systolic blood pressure 140 mm[Hg] 140 mm[Hg] [facility] Diastolic blood pressure 66 mm[Hg] 66 mm[Hg] [facility] Heart rate 97 /min 97 /min [facility] Body height 160 cm 160 cm [facility] Body weight 66.679 kg 66.679 kg [facility] Body mass index (BMI) [Ratio] 26.04 kg/m2 26.04 kg/m2 [facility] Oxygen saturation in Arterial blood by Pulse oximetry 96 % 96 % [facility] Systolic blood pressure 142 mm[Hg] 142 mm[Hg] [facility] Diastolic blood pressure 84 mm[Hg] 84 mm[Hg] [facility] Body height 160 cm 160 cm [facility] Body weight 68.04 kg 68.04 kg [facility] Body mass index (BMI) [Ratio] 26.57 kg/m2 26.57 kg/m2 [facility] Oxygen saturation in Arterial blood by Pulse oximetry 97 % 97 % [facility] Body mass index (BMI) [Ratio] 28.2 kg/m2 28.2 k g/m2 ANTHONY ([facility]) Cosby body weight 105 [lb_av] 105 [lb_av] MEDEN T ([facility]) Body weight 67.586 kg 67.586 kg [facility] ([facility]) Systolic blood pressure 118 mm[Hg] 118 mm[Hg] M EDENT ([facility]) Diastolic blood pressure 68 mm[Hg] 68 mm[Hg] MEDENT ([facility]) Heart rate 111 /min 111 /min [facility] ([facility]) Oxygen saturation in Arterial blood by Pulse oximetry 961 % 961 % [facility] ([facility]) Body height 61 [in_i] 61 [in_i] [facility] ([facility]) 5'1" Body weight 149.00 [lb_av] 149.00 [lb_av] MEDEN T ([facility]) Body surface area Derived from formula 1.67 m2 1.67 m2 [facility] ([facility]) Oxygen saturation in Arterial blood by Pulse oximetry 98 % 98 % [facility] (On O2 @ 1 LPM [place]) Diastolic blood pressure 68 mm[Hg] 68 mm[Hg] [facility] ([facility] Body temperature 98.6 [degF] 98.6 [degF] [facility] ([facility] Heart rate 100 /min 100 /min [facility] Systolic blood pressure 124 mm[Hg] 124 mm[Hg] [facility] Respiratory rate 20 /min 20 /min [facility] Body height 62 [in_i] 62 [in_i] MED[facility] ([facility] 5'2" [place] body weight 110 [lb_av] 110 [lb_av] MEDEN T ([facility] Body mass index (BMI) [Ratio] 27.1 kg/m2 27.1 k g/m2 [facility] ([facility] Oxygen saturation in Arterial blood by Pulse oximetry 87 % 87 % MEDENT ([facility] with O2 @3L via nasal cannula Diastolic blood pressure 66 mm[Hg] 66 mm[Hg] MEDPOLO ([facility] Body temperature 98.1 [degF] 98.1 [degF] ANTHONY ([facility] Heart rate 98 /min 98 /min ANTHONY ([facility] Respiratory rate 18 /min 18 /min MEDPOLO ( [facility] Body weight 148.00 [lb_av] 148.00 [lb_av] MEDEN T ([facility] per pt Cosby body weight 110 [lb_av] 110 [lb_av] YIEN T ([facility] Body height 62 [in_i] 62 [in_i] ANTHONY ([facility] 5'2" Systolic blood pressure 114 mm[Hg] 114 mm[Hg] M CHRISTAL ([facility] Patient Treatment Plan of Care Planned Activity Planned Date Details Description Data Source (s) albuterol (PROVENTIL HFA;VENTOLIN HFA) 108 (90 Base) M CG/ACT inhaler 05/18/2021 12:00:00 AM EDT [facility] apixaban 5 MG Oral Tablet [Eliquis] 04/13/2021 12:00:00 AM EDT [facility] apixaban 5 MG Oral Tablet 01/14/2021 12:00:00 AM [facility] tramadol hydrochloride 50 MG Oral Tablet 12/31/2020 12:00:00 AM EST [facility] apixaban 5 MG Oral Tablet [Eliquis] 12/04/2020 12:00:00 AM EST [facility] apixaban 5 MG Oral Tablet 10/08/2020 12:00:00 AM EST [facility] Budesonide 0.25 MG/ML Inhalant Solution 09/08/2020 12:00:00 AM EDT [facility] montelukast 10 MG Oral Tablet 09/03/2020 12:00:00 AM EDT [facility] 60 ACTUAT Budesonide 0.16 MG/ACTUAT / fo rmoterol fumarate 0.0045 MG/ACTUAT Metered Dose Inhaler 09/01/2020 12:00:00 AM EDT [facility] Albuterol 0.83 MG/ML Inhalant Solution 08/25/2020 12:00:00 AM EDT [facility] Prednisone 10 MG Oral Tablet 08/25/2020 12:00:00 AM EDT [facility] Warfarin Sodium 2 MG Oral Tablet 08/12/2020 12:00:00 AM EDT [facility] albuterol (PROVENTIL HFA;VENTOLIN HFA) 108 (90 Base) M CG/ACT inhaler 08/08/2020 12:00:00 AM EDT [facility] Metformin hydrochloride 500 MG Oral Tablet 08/04/2020 12:00:00 AM E DT [facility] Warfarin Sodium 3 MG Oral Tablet 08/01/2020 12:00:00 AM EDT [facility] SPIRIVA RESPIMAT 1.25 MCG/ACT AERS 07/06/2020 12:00:00 AM EDT [facility] atorvastatin 40 MG Oral Tablet [facility] sennosides, DETENTION 8.6 MG Oral Tablet [facility] POLYETHYLENE GLYCOL 3350 142 MG/ML Oral Solution [facility]
[2021-10-18] MEDS ORDERED: methylPREDNISolone 125MG 2ML VIAL IV STA (23:52)
[2021-10-18] MEDS ORDERED: ALBUTEROL SULFATE 2.5 MG/0.5 ML INH NEB SOLN NEB PRN (23:55)
[2021-10-19] MEDS: IPRATROPIUM 0.5MG/ALBUTEROL 2.5MG INH SOL UD 3ML (DUONEB) NEB SCH ×4 (00:15→20:00)
[2021-10-19 00:27] LABS: ABG BASE EXCESS 5.9 (-2.0-2.0); ABG HCO3 32.6 MEQ/L (22.0-26.0); ABG O2 SATURATION 99.5 % (95.0-99.0); ABG PARTIAL PRESSURE CO2 58.9 mmHg (35.0-45.0); ABG STANDARD HCO3 29.8 MEQ/L (22.0-26.0); ABG TOTAL CO2 34.4 MEQ/L (23.0-31.0); ABG pH (ARTERIAL) 7.361 UNITS (7.350-7.450)
[2021-10-19] MEDS ORDERED: CETACAINE SPRAY 5GM As Ordered ONE (01:05)
[2021-10-19] MEDS: NS 1,000 ML IV SCH (01:19)
[2021-10-19] MEDS: MONTELUKAST 10 MG TAB PO SCH ×2 (01:50→20:51)
[2021-10-19] MEDS: DOCUSATE SODIUM 100MG CAPSULE PO SCH ×3 (01:50→20:50)
[2021-10-19 02:00] VITALS: BP 150/67
[2021-10-19 06:06] LABS: HEMATOCRIT 37.6 % (36.0-47.0); HEMOGLOBIN 10.5 g/dl (12.0-15.5); MEAN CORPUSCULAR HEMOGLOBIN 25.5 pg (27.0-33.0); MEAN CORPUSCULAR HGB CONC 27.9 g/dl (32.0-36.5); MEAN CORPUSCULAR VOLUME 91.3 fl (80.0-96.0); PLATELET COUNT, AUTOMATED 252 10^3/uL (150-450); RED BLOOD COUNT 4.12 10^6/uL (4.00-5.40); WHITE BLOOD COUNT 12.6 10^3/uL (4.0-10.0)
[2021-10-19 06:24] LABS: BLOOD UREA NITROGEN 31 MG/DL (7-18); CALCIUM LEVEL 8.4 MG/DL (8.8-10.2); CARBON DIOXIDE LEVEL 30 MEQ/L (21-32); CHLORIDE LEVEL 103 MEQ/L (98-107); CREATININE FOR GFR 0.56 MG/DL (0.55-1.30); GLOMERULAR FILTRATION RATE > 60.0 (>39); GLUCOSE, FASTING 142 MG/DL (70-100); POTASSIUM SERUM 4.2 MEQ/L (3.5-5.1); SODIUM LEVEL 140 MEQ/L (136-145)
[2021-10-19] MEDS ORDERED: DEXTROSE 50% 50 ML SYRINGE IV PRN (06:30)
[2021-10-19] MEDS ORDERED: GLUCOSE 4GM CHEW TABLET PO PRN (06:30)
[2021-10-19] MEDS ORDERED: GLUCAGON INJ 1MG VIAL SC PRN (06:30)
[2021-10-19 06:46] VITALS: BP 150/80
[2021-10-19] MEDS: TIOTROPIUM INHALER/CAPSULE (SPIRIVA) INH SCH (07:13)
[2021-10-19] MEDS ORDERED: ACETAMINOPHEN 500 MG TAB PO PRN (07:50)
[2021-10-19] MEDS: KETOROLAC 30 MG/ML 1ML VIAL IV SCH ×3 (08:38→20:50)
[2021-10-19] MEDS: ATORVASTATIN 20 MG TAB PO SCH (08:39)
[2021-10-19] MEDS: GABAPENTIN 300 MG CAP PO SCH ×4 (08:39→20:51)
[2021-10-19] MEDS: METOPROLOL TART 12.5 MG PER 1/2 TAB PO SCH ×2 (08:39→20:50)
[2021-10-19] MEDS: HumaLOG INSULIN (NovoLOG) PER UNIT SC SCH ×3 (08:40→18:14)
[2021-10-19] MEDS: APIXABAN 5 MG TAB (ELIQUIS) PO SCH ×2 (08:40→20:51)
[2021-10-19 08:50] LABS: PHOSPHORUS LEVEL 3.6 MG/DL (2.5-4.9)
[2021-10-19] MEDS ORDERED: predniSONE 20 MG TAB PO SCH (09:00)
[2021-10-19] MEDS: VENLAFAXINE **XR** 75MG CAPSULE PO SCH (12:30)
[2021-10-19 14:00] VITALS: BP 118/57
--- NOTE | 2021-10-19 16:07 | IPNPDOC ---
Subjective Date Seen The patient was seen on 10/19/21. Subjective Chief Complaint/HPI Patient seen at bedside complains of some left sided chest pain otherwise no other complaints. She reports that she is very tired and would like to sleep Objective Physical Examination General Exam: Positive: Alert, Cooperative, No Acute Distress Eye Exam: Positive: Other Eye Symptoms (Bruising on the face); Negative: Sclera icteric Neck Exam: Positive: Supple; Negative: JVD, thyromegaly Chest Exam: Positive: Clear to auscultation, Diminished Heart Exam: Positive: Rate Normal, Regular Rhythm, Normal S1, Normal S2; Negative: Murmurs, Rubs Abdomen Exam: Positive: Normal bowel sounds, Soft; Negative: Tenderness Extremity Exam: Negative: Clubbing, Cyanosis, Edema Assessment /Plan Assessment is a 81 yr old F w Paroxysmal A fib, COPD, Chronic hypoxemic respiratory failure (1.5L), CVA, steroid induced Osteoporosis s/p 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: Gabapentin, lispro as per sliding scale Depression Venlafaxine Essential HTN Metoprolol Dyslipidemia Continue statin Plan/VTE VTE Prophylaxis Ordered?: Yes VS, I&O, [facility] Vital Signs/I&O Vital Signs Date Time Temp Pulse Resp B/P (MAP) Pulse Ox O2 Delivery O2 Flow Rate FiO2 10/19/21 14:47 16 10/19/21 08:39 104 150/80 10/19/21 06:46 96.2 99 Nasal Cannula 10/19/21 02:29 2.0 I&O- Last 24 Hours up to 6 AM 10/19/21 06:00 Intake Total 250 ml Output Total 700 ml Balance -450 ml Laboratory Data 24H LABS Laboratory Tests 2 10/18/21 17:04: Urine Color YELLOW, Urine Appearance HAZY, Urine pH 7.0, Urine Specific [place] 1.018, Urine Protein NEGATIVE, Urine Glucose (UA) NEGATIVE, Urine Ketones TRA CEH, Urine Blood NEGATIVE, Urine Nitrite POSITIVEH, Urine Bilirubin NEGATIVE, Urine Urobilinogen 2.0H, Urine Leukocyte Esterase TRACEH, Urine WBC (Auto) 3, Urine RBC (Auto) 3, Urine Hyaline Casts (Auto) 0, Urine Bacteria (Auto) 2+H, Urine Squamous Epithelial Cells 0, Urine Mucus (Auto) SMALL, Urine Sperm (Auto) 10/19/21 00:12: Blood Gas Bicarbonate Standard 29.8H, Arterial Blood pH 7.361, Arterial Blood Partial Pressure CO2 58.9H, Arterial Blood Partial Pressure O2 221.0H, Arterial Blood Total CO2 34.4H, Arterial Blood HCO3 32.6H, Arterial Blood Base Excess 5.9H, Arterial Blood Oxygen Saturation 99.5H 10/19/21 05:20: Nucleated Red Blood Cells % (auto) 0.0, Anion Gap 7L, Glomerular Filtration Rate > 60.0, Calcium Level 8.4L, Phosphorus Level 3.6 10/19/21 12:07: Bedside Glucose (Misc Panel) 150H CBC/BMP Laboratory Tests 10/19/21 00:23 10/19/21 05:20 Microbiology Microbiology 10/18/21 Urine Culture, Received Pending Tiera Moss MD Oct 19, 2021 16:07
[2021-10-19] MEDS: SYMBICORT 160/4.5MCG INHALER 6GM INH SCH (20:13)
[2021-10-19 20:20] VITALS: BP 122/59
[2021-10-19] MEDS ORDERED: HumaLOG INSULIN (NovoLOG) PER UNIT SC SCH (21:00)
[2021-10-20] MEDS: IPRATROPIUM 0.5MG/ALBUTEROL 2.5MG INH SOL UD 3ML (DUONEB) NEB SCH ×3 (02:00→14:00)
[2021-10-20] MEDS: KETOROLAC 30 MG/ML 1ML VIAL IV SCH ×2 (03:21→08:09)
[2021-10-20 06:00] VITALS: BP 130/60
[2021-10-20 06:17] LABS: BASO % 0.1 % (0.0-1.0); EOS % 0.3 % (0.0-3.0); HEMATOCRIT 32.9 % (36.0-47.0); HEMOGLOBIN 9.5 g/dl (12.0-15.5); LYMPH # 0.8 10^3/uL (1.5-5.0); LYMPH % 5.3 % (24.0-44.0); MEAN CORPUSCULAR HGB CONC 28.9 g/dl (32.0-36.5); MEAN CORPUSCULAR VOLUME 90.1 fl (80.0-96.0); MONO # 1.5 10^3/uL (0.0-0.8); MONO % 9.8 % (2.0-8.0); NEUTROPHILS # 13.3 10^3/uL (1.5-8.5); NEUTROPHILS % 84.1 % (36.0-66.0); PLATELET COUNT, AUTOMATED 262 10^3/uL (150-450); RED BLOOD COUNT 3.65 10^6/uL (4.00-5.40); WHITE BLOOD COUNT 15.8 10^3/uL (4.0-10.0)
[2021-10-20 06:41] LABS: CALCIUM LEVEL 8.2 MG/DL (8.8-10.2); CREATININE FOR GFR 1.05 MG/DL (0.55-1.30); GLOMERULAR FILTRATION RATE 53.8 (>39); POTASSIUM SERUM 4.2 MEQ/L (3.5-5.1)
[2021-10-20] MEDS: HumaLOG INSULIN (NovoLOG) PER UNIT SC SCH ×2 (08:08→11:48)
[2021-10-20] MEDS: ATORVASTATIN 20 MG TAB PO SCH (08:09)
[2021-10-20 08:10] VITALS: BP 130/60
[2021-10-20] MEDS: METOPROLOL TART 12.5 MG PER 1/2 TAB PO SCH (08:10)
[2021-10-20] MEDS: GABAPENTIN 300 MG CAP PO SCH ×2 (08:10→12:21)
[2021-10-20] MEDS: APIXABAN 5 MG TAB (ELIQUIS) PO SCH (08:10)
[2021-10-20] MEDS: DOCUSATE SODIUM 100MG CAPSULE PO SCH (08:10)
[2021-10-20] MEDS: TIOTROPIUM INHALER/CAPSULE (SPIRIVA) INH SCH (08:29)
[2021-10-20] MEDS: SYMBICORT 160/4.5MCG INHALER 6GM INH SCH (08:29)
[2021-10-20] MEDS ORDERED: predniSONE 10 MG TAB PO SCH (09:00)
[2021-10-20] MEDS ORDERED: ACET-683 PO (11:36)
[2021-10-20] MEDS ORDERED: NAPR-885 PO (11:36)
[2021-10-20] MEDS: VENLAFAXINE **XR** 75MG CAPSULE PO SCH (11:49)
[2021-10-20 13:00] VITALS: BP 120/52
--- NOTE | 2021-10-21 13:01 | ED PDOC ---
Post-Departure Follow-Up radiology report faxed to Nedra Ma MD Oct 21, 2021 13:01
--- NOTE | 2021-10-22 17:49 | DS.PDOC ---
Discharge Summary General Date of Admission Oct 18, 2021 at 23:16 Date of Discharge 10/20/21 Discharge Summary PROCEDURES PERFORMED DURING STAY: [None]. 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 Left side rib fracture/facial trauma with bruising Status post mechanical fall Pain controlled with the Tylenol and naproxen. incentive spirometer Recurrent mechanical falls Likely due to neuropathy/visual impairment PT OT COPD with chronic hypoxic respiratory failure there was mild exacerbation on presentation which has now resolved. 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 Depression Venlafaxine Essential HTN Metoprolol Dyslipidemia Continue statin DISCHARGE MEDICATIONS: Please see below. ALLERGIES: Please see below. PHYSICAL EXAMINATION ON DISCHARGE: VITAL SIGNS: Please see below. General Exam: Positive: Alert, Cooperative, No Acute Distress Eye Exam: Positive: Other Eye Symptoms (Bruising on the face); Negative: Sclera icteric Neck Exam: Positive: Supple; Negative: JVD, thyromegaly Chest Exam: Positive: Clear to auscultation, Diminished Heart Exam: Positive: Rate Normal, Regular Rhythm, Normal S1, Normal S2; Negative: Murmurs, Rubs Abdomen Exam: Positive: Normal bowel sounds, Soft; Negative: Tenderness Extremity Exam: Negative: Clubbing, Cyanosis, Edema LABORATORY DATA: Please see below. IMAGING: IMPRESSION: 1. Moderate to severe paraseptal and centrilobular emphysematous changes most pronounced in the mid and upper lung zones. 2. Age-indeterminate, possibly acute rib fracture right 7th rib. 3. Acute fracture left 6th rib. Possible nondisplaced fracture left 5th rib. 4. There is fusiform dilatation of the supravalvular ascending thoracic aorta which measures 3.7 cm. maximally. There is no saccular component. Thoracic aorta is diffusely ectatic. 5. There is enlargement of the central pulmonary arteries, findings which can be associated with pulmonary arterial hypertension which should be correlated clinically. 6. A small sliding hiatal hernia is present. 7. COPD. ACTIVITY: [As tolerated]. DIET: As tolerated DISPOSITION: Home Health Service. DISCHARGE INSTRUCTIONS: PMD in 2 weeks DISCHARGE CONDITION: [Stable]. TIME SPENT ON DISCHARGE: 35 minutes. Vital Signs/I&Os Vital Signs Date Time Temp Pulse Resp B/P (MAP) Pulse Ox O2 Delivery O2 Flow Rate FiO2 10/20/21 13:00 96.1 94 36 120/52 (74) 95 Nasal Cannula 2.0 I&O- Last 24 Hours up to 6 AM 10/20/21 07:00 Intake Total 785 ml Balance 785 ml Laboratory Data Labs 24H Laboratory Tests 2 10/20/21 05:13: Immature Granulocyte % (Auto) 0.4, Neutrophils (%) (Auto) 84.1H, Lymphocytes (%) (Auto) 5.3L, Monocytes (%) (Auto) 9.8H, Eosinophils (%) (Auto) 0.3, Basophils (%) (Auto) 0.1, Neutrophils # (Auto) 13.3H, Lymphocytes # (Auto) 0.8L, Monocytes # (Auto) 1.5H, Eosinophils # (Auto) 0.0, Basophils # (Auto) 0.0, Nucleated Red Blood Cells % (auto) 0.0, Anion Gap 7L, Glomerular Filtration Rate 53.8, Calcium Level 8.2L 10/20/21 10:56: Bedside Glucose (Misc Panel) 204H CBC/BMP Laboratory Tests 10/20/21 05:13 FSBS Laboratory Tests Test 10/20/21 10:56 Range/Units Bedside Glucose (Misc Panel) 204 83-110 MG/DL Microbiology Microbiology 10/18/21 Urine Culture - Final, Complete Escherichia Coli Discharge Medications Scheduled Apixaban (Eliquis) 5 Mg Tablet, 5 MG PO BID, (Reported) Atorvastatin Calcium (Atorvastatin Calcium) 40 Mg Tablet, 40 MG PO DAILY, (Reported) Budesonide (Budesonide) 0.5 Mg/2 Ml Ampul.neb, 0.5 MG INH BID, (Reported) Budesonide/Formoterol (Symbicort 160-4.5 Mcg Inhaler) 6 Gm Hfa.aer.ad, 2 PUFF INH BID, (Reported) Ergocalciferol (Vitamin D2) (Vitamin D2) 50,000 Units Cap, 50,000 UNITS PO QWEEK, (Reported) SUNDAYS Gabapentin (Gabapentin) 600 Mg Tablet, 600 MG PO QID, (Reported) Metformin HCl (Metformin HCl) 500 Mg Tab, 500 MG PO BID, (Reported) Metoprolol Tartrate (Metoprolol Tartrate) 25 Mg Tablet, 12.5 MG PO BID, (Reported) Montelukast Sodium (Singulair) 10 Mg Tab, 10 MG PO QHS, (Reported) Naproxen (Naproxen) 500 Mg Tablet, 1 TAB PO BIDP for Pain Prednisone (Prednisone) 10 Mg Tablet, 10 MG PO DAILY, (Reported) Risedronate Sodium (Actonel) 150 Mg Tab, 150 MG PO QMONTH, (Reported) TAKES THE FIRST OF THE MONTH Tiotropium [place] (Spiriva Respimat) 4 Gm Mist.inhal, 2 PUFFS INH DAILY, (Re ported) Venlafaxine HCl (Venlafaxine HCl ER) 150 Mg Cap.er.24h, 150 MG PO DAILY, (Reported) TAKES AT LUNCH Scheduled PRN Acetaminophen (Acetaminophen) 500 Mg Tablet, 1,000 MG PO TIDP PRN for PAIN LEVEL 1-4 Albuterol Sulf (Albuterol Sulfate) 2.5 Mg/3 Ml Vial.neb, 2.5 MG INH Q4H PRN for SHORTNESS OF BREATH, (Reported) Albuterol Sulfate (Ventolin Hfa) 108 Mcg/Act Aer, 2 PUFFS INH Q4H PRN for SHORTNESS OF BREATH, (Reported) Carboxymethylcellulose Sodium (Refresh Tears) 0.5 % Je, 1 DROP OU QID PRN for DRY EYES, (Reported) Fluticasone Propionate (Flonase Allergy Relief) 50 Mcg/Act Spr, 2 SPRAYS NA DAILY PRN for NASAL CONGESTION, (Reported) Allergies Coded Allergies: chocolate flavor (Verified Allergy, Severe, throat tightens, 05/31/21) Penicillins (Verified Adverse Reaction, Mild, shakes, 05/31/21) clarithromycin (Verified Adverse Reaction, Mild, shakes, 05/31/21) clavulanic acid (Verified Adverse Reaction, Mild, shakes, 05/31/21) ipratropium (Verified Adverse Reaction, Mild, shakes, 05/31/21) pseudoephedrine (Verified Adverse Reaction, Mild, flushed , 05/31/21) Tiera Moss MD Oct 20, 2021 23:33
[2021-10-24] MEDS ORDERED: VITAMIN D 50,000 UNITS CAPSULE (ERGOCALCIFEROL 1.25MG) PO SCH (09:00)
== END 2021-10-20 14:15 | disposition home health service (06) | DRG 184 ==
LOC: M ED 10:37 → M ED INP 23:16 → ENRESERV 23:36 → M MS5PR 10-19 02:05
PROVIDERS: ADMIT Internal Medicine; ATTEND Internal Medicine Nephrology
DX: S22.42XA Multiple fractures of ribs, left side, initial encounter for closed fracture (principal); J96.11 Chronic respiratory failure with hypoxia; I50.32 Chronic diastolic (congestive) heart failure; E87.2 Acidosis; S22.31XA Fracture of one rib, right side, initial encounter for closed fracture; R29.6 Repeated falls; J44.9 Chronic obstructive pulmonary disease, unspecified; W18.09XA Striking against other object with subsequent fall, initial encounter; Y92.018 Other place in single-family (private) house as the place of occurrence of the external cause; Y99.8 Other external cause status; Z66 Do not resuscitate; Y93.E8 Activity, other personal hygiene; I48.0 Paroxysmal atrial fibrillation; I77.810 Thoracic aortic ectasia; M81.8 Other osteoporosis without current pathological fracture; E09.40 Drug or chemical induced diabetes mellitus with neurological complications with diabetic neuropathy, unspecified; F32.A Depression, unspecified; I11.0 Hypertensive heart disease with heart failure; I35.0 Nonrheumatic aortic (valve) stenosis; E78.5 Hyperlipidemia, unspecified; Z98.49 Cataract extraction status, unspecified eye; H91.92 Unspecified hearing loss, left ear; H54.62 Unqualified visual loss, left eye, normal vision right eye; Z87.891 Personal history of nicotine dependence; Z99.81 Dependence on supplemental oxygen; S00.83XA Contusion of other part of head, initial encounter; Z79.01 Long term (current) use of anticoagulants; Z79.84 Long term (current) use of oral hypoglycemic drugs; Z79.52 Long term (current) use of systemic steroids; Z79.899 Other long term (current) drug therapy; Z88.0 Allergy status to penicillin; Z88.8 Allergy status to other drugs, medicaments and biological substances; Z88.1 Allergy status to other antibiotic agents; Z91.018 Allergy to other foods

== ENCOUNTER 2021-12-03 13:06 | Inpatient (IN) | payer MEDICARE, OTHER ==
[~2021-12-03] VITALS: Ht 160 cm; Wt 61.2 kg
[~2021-12-03 13:06] MED LIST changes: +ACET-683 PO; +ERGO500029 PO; -LEVO250T12 PO; +LEVO250T3 PO; -LEVO500T3 PO; +LEVO500T4 PO; -LISI-898 PO; +LISI5TAB11 PO; +METO1TAB87 PO; +NAPR-885 PO; +aggrenox PO
[2021-12-03] MEDS ORDERED: COMBIVENT RESPIMAT 100-20MCG INHALER 4GM INH ONE (13:25)
[2021-12-03 13:50] LABS: BASO # 0.1 10^3/uL (0.0-0.2); BASO % 0.5 % (0.0-1.0); EOS % 0.3 % (0.0-3.0); HEMATOCRIT 43.2 % (36.0-47.0); HEMOGLOBIN 12.2 g/dl (12.0-15.5); LYMPH # 1.3 10^3/uL (1.5-5.0); LYMPH % 9.8 % (24.0-44.0); MEAN CORPUSCULAR HEMOGLOBIN 26.1 pg (27.0-33.0); MEAN CORPUSCULAR HGB CONC 28.2 g/dl (32.0-36.5); MEAN CORPUSCULAR VOLUME 92.3 fl (80.0-96.0); MONO # 0.8 10^3/uL (0.0-0.8); MONO % 5.8 % (2.0-8.0); NEUTROPHILS # 11.1 10^3/uL (1.5-8.5); NEUTROPHILS % 83.1 % (36.0-66.0); PLATELET COUNT, AUTOMATED 351 10^3/uL (150-450); RED BLOOD COUNT 4.68 10^6/uL (4.00-5.40); WHITE BLOOD COUNT 13.3 10^3/uL (4.0-10.0)
[2021-12-03 14:09] LABS: CK-MB VALUE MASS 1.5 NG/ML (<3.6); MB/CK RELATIVE INDEX 2.54 (< OR =4)
[2021-12-03 14:15] LABS: ALBUMIN 3.8 GM/DL (3.2-5.2); ALT/SGPT 23 U/L (12-78); BILIRUBIN,DIRECT 0.2 MG/DL (0.0-0.2); BILIRUBIN,TOTAL 0.5 MG/DL (0.2-1.0); BLOOD UREA NITROGEN 31 MG/DL (7-18); CALCIUM LEVEL 9.7 MG/DL (8.8-10.2); CARBON DIOXIDE LEVEL 32 MEQ/L (21-32); CHLORIDE LEVEL 100 MEQ/L (98-107); CREATININE FOR GFR 0.81 MG/DL (0.55-1.30); GLOMERULAR FILTRATION RATE > 60.0 (>39); GLUCOSE, FASTING 184 MG/DL (70-100); NT-PRO BNP 576 PG/ML (<450); POTASSIUM SERUM 4.8 MEQ/L (3.5-5.1); SODIUM LEVEL 140 MEQ/L (136-145)
[2021-12-03 14:40] LABS: ABG BASE EXCESS 5.2 (-2.0-2.0); ABG HCO3 32.4 MEQ/L (22.0-26.0); ABG O2 SATURATION 95.2 % (95.0-99.0); ABG PARTIAL PRESSURE CO2 59.7 mmHg (35.0-45.0); ABG PARTIAL PRESSURE O2 80.7 mmHg (75.0-100.0); ABG STANDARD HCO3 29.1 MEQ/L (22.0-26.0); ABG TOTAL CO2 34.2 MEQ/L (23.0-31.0); ABG pH (ARTERIAL) 7.352 UNITS (7.350-7.450)
[2021-12-03] MEDS ORDERED: IPRATROPIUM 0.5MG/ALBUTEROL 2.5MG INH SOL UD 3ML (DUONEB) NEB ONE (15:10)
[2021-12-03] MEDS ORDERED: GLUCOSE 4GM CHEW TABLET PO PRN (16:55)
[2021-12-03] MEDS ORDERED: DEXTROSE 50% 50 ML SYRINGE IV PRN (16:55)
[2021-12-03] MEDS ORDERED: GLUCAGON INJ 1MG VIAL SC PRN (16:55)
[2021-12-03] MEDS: HumaLOG INSULIN (NovoLOG) PER UNIT SC SCH ×2 (17:30→21:00)
[2021-12-03] MEDS ORDERED: HOME MED LIST COMPLETE! XX SCH (18:25)
[2021-12-03] MEDS ORDERED: FLUTICASONE PROP 0.05% NASAL SPRAY 16 GM (FLONASE) PRN (18:40)
[2021-12-03 19:57] LABS: HEMOGLOBIN A1c 6.3 %
[2021-12-03 20:20] VITALS: BP 142/89
[2021-12-03] MEDS: ADVAIR HFA 115/21MCG INHALER INH SCH (20:47)
[2021-12-03] MEDS: IPRATROPIUM 0.5MG/ALBUTEROL 2.5MG INH SOL UD 3ML (DUONEB) NEB SCH (20:47)
[2021-12-03] MEDS: MONTELUKAST 10 MG TAB PO SCH (20:58)
[2021-12-03] MEDS: guaiFENesin ER 600 MG TAB PO SCH (20:58)
[2021-12-03] MEDS: METOPROLOL TART 25 MG TABLET PO SCH (20:58)
[2021-12-03] MEDS: APIXABAN 5 MG TAB (ELIQUIS) PO SCH (20:58)
[2021-12-03] MEDS: GABAPENTIN 300 MG CAP PO SCH (20:59)
[2021-12-03] MEDS: methylPREDNISolone 125MG 2ML VIAL IV SCH (21:09)
[2021-12-04] VITALS (7 sets, daily range): BP systolic 103–188; BP diastolic 51–94
[2021-12-04] MEDS: IPRATROPIUM 0.5MG/ALBUTEROL 2.5MG INH SOL UD 3ML (DUONEB) NEB SCH ×7 (00:27→22:17)
[2021-12-04] MEDS: methylPREDNISolone 125MG 2ML VIAL IV SCH ×3 (03:08→18:44)
[2021-12-04 05:53] LABS: BASO % 0.2 % (0.0-1.0); HEMATOCRIT 40.7 % (36.0-47.0); HEMOGLOBIN 11.9 g/dl (12.0-15.5); LYMPH # 0.6 10^3/uL (1.5-5.0); LYMPH % 13.4 % (24.0-44.0); MEAN CORPUSCULAR HEMOGLOBIN 26.9 pg (27.0-33.0); MEAN CORPUSCULAR HGB CONC 29.2 g/dl (32.0-36.5); MEAN CORPUSCULAR VOLUME 91.9 fl (80.0-96.0); MONO # 0.1 10^3/uL (0.0-0.8); MONO % 1.6 % (2.0-8.0); NEUTROPHILS # 3.6 10^3/uL (1.5-8.5); NEUTROPHILS % 84.1 % (36.0-66.0); PLATELET COUNT, AUTOMATED 306 10^3/uL (150-450); RED BLOOD COUNT 4.43 10^6/uL (4.00-5.40); WHITE BLOOD COUNT 4.3 10^3/uL (4.0-10.0)
[2021-12-04 06:06] LABS: BLOOD UREA NITROGEN 33 MG/DL (7-18); CALCIUM LEVEL 8.9 MG/DL (8.8-10.2); CARBON DIOXIDE LEVEL 32 MEQ/L (21-32); CHLORIDE LEVEL 100 MEQ/L (98-107); CREATININE FOR GFR 0.68 MG/DL (0.55-1.30); GLOMERULAR FILTRATION RATE > 60.0 (>39); GLUCOSE, FASTING 200 MG/DL (70-100); POTASSIUM SERUM 4.2 MEQ/L (3.5-5.1); SODIUM LEVEL 138 MEQ/L (136-145)
[2021-12-04] MEDS: TIOTROPIUM INHALER/CAPSULE (SPIRIVA) INH SCH (09:47)
[2021-12-04] MEDS: ADVAIR HFA 115/21MCG INHALER INH SCH ×2 (09:47→19:47)
[2021-12-04] MEDS: GABAPENTIN 300 MG CAP PO SCH ×4 (09:49→22:26)
[2021-12-04] MEDS: guaiFENesin ER 600 MG TAB PO SCH ×2 (09:49→22:26)
[2021-12-04] MEDS: APIXABAN 5 MG TAB (ELIQUIS) PO SCH ×2 (09:49→22:26)
[2021-12-04] MEDS: HumaLOG INSULIN (NovoLOG) PER UNIT SC SCH ×4 (09:50→22:25)
[2021-12-04] MEDS: ATORVASTATIN 20 MG TAB PO SCH (09:50)
[2021-12-04] MEDS: VENLAFAXINE **XR** 75MG CAPSULE PO SCH (09:50)
[2021-12-04] MEDS: METOPROLOL TART 25 MG TABLET PO SCH ×2 (09:50→21:00)
[2021-12-04 10:22] LABS: ABG BASE EXCESS 2.1 (-2.0-2.0); ABG HCO3 27.2 MEQ/L (22.0-26.0); ABG O2 SATURATION 94.2 % (95.0-99.0); ABG PARTIAL PRESSURE CO2 44.1 mmHg (35.0-45.0); ABG PARTIAL PRESSURE O2 71.5 mmHg (75.0-100.0); ABG STANDARD HCO3 26.3 MEQ/L (22.0-26.0); ABG TOTAL CO2 28.6 MEQ/L (23.0-31.0); ABG pH (ARTERIAL) 7.408 UNITS (7.350-7.450)
[2021-12-04] MEDS: IPRATROPIUM 0.5MG/ALBUTEROL 2.5MG INH SOL UD 3ML (DUONEB) NEB PRN (22:15)
[2021-12-04] MEDS: MONTELUKAST 10 MG TAB PO SCH (22:26)
[2021-12-05] VITALS (10 sets, daily range): BP systolic 117–149; BP diastolic 58–64; O2SAT 96–97
[2021-12-05] MEDS: methylPREDNISolone 125MG 2ML VIAL IV SCH (02:56)
[2021-12-05] MEDS: IPRATROPIUM 0.5MG/ALBUTEROL 2.5MG INH SOL UD 3ML (DUONEB) NEB SCH ×6 (03:27→23:13)
[2021-12-05 06:24] LABS: BASO % 0.1 % (0.0-1.0); HEMATOCRIT 38.7 % (36.0-47.0); HEMOGLOBIN 11.3 g/dl (12.0-15.5); LYMPH # 0.5 10^3/uL (1.5-5.0); MEAN CORPUSCULAR HEMOGLOBIN 26.7 pg (27.0-33.0); MEAN CORPUSCULAR HGB CONC 29.2 g/dl (32.0-36.5); MEAN CORPUSCULAR VOLUME 91.5 fl (80.0-96.0); MONO # 0.9 10^3/uL (0.0-0.8); MONO % 5.5 % (2.0-8.0); NEUTROPHILS # 14.3 10^3/uL (1.5-8.5); PLATELET COUNT, AUTOMATED 329 10^3/uL (150-450); RED BLOOD COUNT 4.23 10^6/uL (4.00-5.40); WHITE BLOOD COUNT 15.7 10^3/uL (4.0-10.0)
[2021-12-05 06:45] LABS: BLOOD UREA NITROGEN 47 MG/DL (7-18); CALCIUM LEVEL 8.6 MG/DL (8.8-10.2); CARBON DIOXIDE LEVEL 31 MEQ/L (21-32); CHLORIDE LEVEL 99 MEQ/L (98-107); CREATININE FOR GFR 0.84 MG/DL (0.55-1.30); GLOMERULAR FILTRATION RATE > 60.0 (>39); GLUCOSE, FASTING 208 MG/DL (70-100); SODIUM LEVEL 138 MEQ/L (136-145)
[2021-12-05] MEDS: TIOTROPIUM INHALER/CAPSULE (SPIRIVA) INH SCH (07:17)
[2021-12-05] MEDS: ADVAIR HFA 115/21MCG INHALER INH SCH ×2 (07:17→19:44)
[2021-12-05] MEDS: HumaLOG INSULIN (NovoLOG) PER UNIT SC SCH ×4 (09:17→20:29)
[2021-12-05] MEDS: ATORVASTATIN 20 MG TAB PO SCH (09:18)
[2021-12-05] MEDS: VENLAFAXINE **XR** 75MG CAPSULE PO SCH (09:18)
[2021-12-05] MEDS: APIXABAN 5 MG TAB (ELIQUIS) PO SCH ×2 (09:18→20:46)
[2021-12-05] MEDS: guaiFENesin ER 600 MG TAB PO SCH ×2 (09:18→20:46)
[2021-12-05] MEDS: GABAPENTIN 300 MG CAP PO SCH ×4 (09:18→20:46)
[2021-12-05] MEDS: METOPROLOL TART 25 MG TABLET PO SCH ×2 (09:19→20:46)
[2021-12-05] MEDS: methylPREDNISolone 40MG 1ML VIAL IV SCH (13:48)
[2021-12-05] MEDS: MONTELUKAST 10 MG TAB PO SCH (20:46)
[2021-12-05] MEDS: IPRATROPIUM 0.5MG/ALBUTEROL 2.5MG INH SOL UD 3ML (DUONEB) NEB PRN (20:59)
[2021-12-06] VITALS (11 sets, daily range): BP systolic 120–142; BP diastolic 62–77; O2SAT 94–97
[2021-12-06] MEDS: methylPREDNISolone 40MG 1ML VIAL IV SCH ×2 (01:28→14:01)
[2021-12-06] MEDS: IPRATROPIUM 0.5MG/ALBUTEROL 2.5MG INH SOL UD 3ML (DUONEB) NEB SCH ×6 (03:25→23:30)
[2021-12-06 05:17] LABS: BASO % 0.1 % (0.0-1.0); HEMOGLOBIN 11.3 g/dl (12.0-15.5); LYMPH # 0.7 10^3/uL (1.5-5.0); LYMPH % 4.6 % (24.0-44.0); MEAN CORPUSCULAR HEMOGLOBIN 26.4 pg (27.0-33.0); MEAN CORPUSCULAR HGB CONC 28.3 g/dl (32.0-36.5); MEAN CORPUSCULAR VOLUME 93.5 fl (80.0-96.0); MONO % 7.1 % (2.0-8.0); NEUTROPHILS # 12.3 10^3/uL (1.5-8.5); NEUTROPHILS % 87.8 % (36.0-66.0); PLATELET COUNT, AUTOMATED 339 10^3/uL (150-450); RED BLOOD COUNT 4.28 10^6/uL (4.00-5.40)
[2021-12-06 05:43] LABS: BLOOD UREA NITROGEN 46 MG/DL (7-18); CALCIUM LEVEL 8.8 MG/DL (8.8-10.2); CARBON DIOXIDE LEVEL 33 MEQ/L (21-32); CHLORIDE LEVEL 101 MEQ/L (98-107); GLOMERULAR FILTRATION RATE > 60.0 (>39); GLUCOSE, FASTING 200 MG/DL (70-100); POTASSIUM SERUM 4.5 MEQ/L (3.5-5.1); SODIUM LEVEL 139 MEQ/L (136-145)
[2021-12-06] MEDS: ATORVASTATIN 20 MG TAB PO SCH (08:59)
[2021-12-06] MEDS: VENLAFAXINE **XR** 75MG CAPSULE PO SCH (08:59)
[2021-12-06] MEDS: HumaLOG INSULIN (NovoLOG) PER UNIT SC SCH ×4 (08:59→20:27)
[2021-12-06] MEDS: GABAPENTIN 300 MG CAP PO SCH ×4 (08:59→20:09)
[2021-12-06] MEDS: APIXABAN 5 MG TAB (ELIQUIS) PO SCH ×2 (09:00→20:09)
[2021-12-06] MEDS: METOPROLOL TART 25 MG TABLET PO SCH ×2 (09:01→20:09)
[2021-12-06] MEDS: guaiFENesin ER 600 MG TAB PO SCH ×2 (09:01→20:10)
[2021-12-06] MEDS: ADVAIR HFA 115/21MCG INHALER INH SCH ×2 (10:33→19:22)
[2021-12-06] MEDS: TIOTROPIUM INHALER/CAPSULE (SPIRIVA) INH SCH (10:33)
[2021-12-06] MEDS: MONTELUKAST 10 MG TAB PO SCH (20:10)
[2021-12-07] MEDS: methylPREDNISolone 40MG 1ML VIAL IV SCH ×2 (01:56→14:33)
[2021-12-07] MEDS: IPRATROPIUM 0.5MG/ALBUTEROL 2.5MG INH SOL UD 3ML (DUONEB) NEB SCH ×4 (03:41→15:14)
[2021-12-07 04:00] VITALS: BP 141/96
[2021-12-07 04:07] LABS: BASO % 0.1 % (0.0-1.0); HEMATOCRIT 39.3 % (36.0-47.0); HEMOGLOBIN 11.2 g/dl (12.0-15.5); LYMPH # 0.6 10^3/uL (1.5-5.0); LYMPH % 5.5 % (24.0-44.0); MEAN CORPUSCULAR HEMOGLOBIN 26.7 pg (27.0-33.0); MEAN CORPUSCULAR HGB CONC 28.5 g/dl (32.0-36.5); MEAN CORPUSCULAR VOLUME 93.6 fl (80.0-96.0); MONO # 1.1 10^3/uL (0.0-0.8); NEUTROPHILS # 8.5 10^3/uL (1.5-8.5); PLATELET COUNT, AUTOMATED 307 10^3/uL (150-450); WHITE BLOOD COUNT 10.2 10^3/uL (4.0-10.0)
[2021-12-07 04:29] LABS: BLOOD UREA NITROGEN 40 MG/DL (7-18); CALCIUM LEVEL 8.6 MG/DL (8.8-10.2); CARBON DIOXIDE LEVEL 35 MEQ/L (21-32); CHLORIDE LEVEL 102 MEQ/L (98-107); CREATININE FOR GFR 0.66 MG/DL (0.55-1.30); GLOMERULAR FILTRATION RATE > 60.0 (>39); GLUCOSE, FASTING 177 MG/DL (70-100); POTASSIUM SERUM 4.5 MEQ/L (3.5-5.1); SODIUM LEVEL 140 MEQ/L (136-145)
[2021-12-07 07:38] VITALS: BP 156/87
[2021-12-07] MEDS: ADVAIR HFA 115/21MCG INHALER INH SCH (07:43)
[2021-12-07] MEDS: TIOTROPIUM INHALER/CAPSULE (SPIRIVA) INH SCH (07:43)
[2021-12-07] MEDS: HumaLOG INSULIN (NovoLOG) PER UNIT SC SCH ×2 (09:28→13:34)
[2021-12-07] MEDS: GABAPENTIN 300 MG CAP PO SCH ×2 (09:28→13:33)
[2021-12-07] MEDS: guaiFENesin ER 600 MG TAB PO SCH (09:29)
[2021-12-07] MEDS: VENLAFAXINE **XR** 75MG CAPSULE PO SCH (09:29)
[2021-12-07] MEDS: APIXABAN 5 MG TAB (ELIQUIS) PO SCH (09:29)
[2021-12-07] MEDS: ATORVASTATIN 20 MG TAB PO SCH (09:29)
[2021-12-07 09:30] VITALS: BP 156/87
[2021-12-07] MEDS: METOPROLOL TART 25 MG TABLET PO SCH (09:30)
[2021-12-07 12:29] VITALS: BP 137/66
[2021-12-07] MEDS ORDERED: MUCI600T31 PO (12:42)
[2021-12-07] MEDS ORDERED: PRED10TA2 PO (12:42)
== END 2021-12-07 16:51 | disposition home health service (06) | DRG 191 ==
LOC: M ED 13:06 → M ED INP 17:01 → ENRESERV 19:18 → M PCU 20:30
PROVIDERS: ADMIT Internal Medicine; ATTEND Internal Medicine
DX: J44.1 Chronic obstructive pulmonary disease with (acute) exacerbation (principal); I50.32 Chronic diastolic (congestive) heart failure; Z99.81 Dependence on supplemental oxygen; M83 Adult osteomalacia; Z86.73 Personal history of transient ischemic attack (TIA), and cerebral infarction without residual deficits; I48.91 Unspecified atrial fibrillation; Z79.01 Long term (current) use of anticoagulants; I11.0 Hypertensive heart disease with heart failure; E09.42 Drug or chemical induced diabetes mellitus with neurological complications with diabetic polyneuropathy; Z90.49 Acquired absence of other specified parts of digestive tract; Z20.822 Contact with and (suspected) exposure to COVID-19; Z98.49 Cataract extraction status, unspecified eye; J10.1 Influenza due to other identified influenza virus with other respiratory manifestations; Z66 Do not resuscitate; Z79.84 Long term (current) use of oral hypoglycemic drugs; Z79.4 Long term (current) use of insulin; Z79.899 Other long term (current) drug therapy; Z88.0 Allergy status to penicillin; Z88.1 Allergy status to other antibiotic agents; Z88.8 Allergy status to other drugs, medicaments and biological substances; Z91.02 Food additives allergy status; D72.829 Elevated white blood cell count, unspecified; E78.5 Hyperlipidemia, unspecified; F32.A Depression, unspecified

== ENCOUNTER 2021-12-07 17:51 | Inpatient (IN) | payer MEDICARE, OTHER ==
[~2021-12-07] VITALS: Ht 157.5 cm; Wt 65.3 kg
[~2021-12-07 17:51] MED LIST changes: +MUCI600T31 PO
[2021-12-07] MEDS ORDERED: methylPREDNISolone 125MG 2ML VIAL IV ONE (18:25)
[2021-12-07] MEDS ORDERED: ALBUTEROL SULFATE 2.5 MG/0.5 ML INH NEB SOLN NEB ONE (18:25)
[2021-12-07] MEDS ORDERED: IPRATROPIUM 0.5MG/ALBUTEROL 2.5MG INH SOL UD 3ML (DUONEB) NEB ONE ×2 (18:25→20:00)
[2021-12-07 18:42] LABS: BASO % 0.2 % (0.0-1.0); HEMOGLOBIN 12.2 g/dl (12.0-15.5); LYMPH # 0.3 10^3/uL (1.5-5.0); LYMPH % 2.1 % (24.0-44.0); MEAN CORPUSCULAR HEMOGLOBIN 26.6 pg (27.0-33.0); MEAN CORPUSCULAR HGB CONC 28.4 g/dl (32.0-36.5); MEAN CORPUSCULAR VOLUME 93.9 fl (80.0-96.0); MONO % 6.5 % (2.0-8.0); NEUTROPHILS # 14.5 10^3/uL (1.5-8.5); NEUTROPHILS % 90.4 % (36.0-66.0); PLATELET COUNT, AUTOMATED 373 10^3/uL (150-450); RED BLOOD COUNT 4.58 10^6/uL (4.00-5.40); WHITE BLOOD COUNT 16.1 10^3/uL (4.0-10.0)
[2021-12-07 19:08] LABS: ALBUMIN 3.5 GM/DL (3.2-5.2); ALT/SGPT 33 U/L (12-78); BILIRUBIN,DIRECT 0.3 MG/DL (0.0-0.2); BILIRUBIN,TOTAL 0.5 MG/DL (0.2-1.0); BLOOD UREA NITROGEN 40 MG/DL (7-18); CARBON DIOXIDE LEVEL 33 MEQ/L (21-32); CHLORIDE LEVEL 104 MEQ/L (98-107); CREATININE FOR GFR 0.73 MG/DL (0.55-1.30); GLOMERULAR FILTRATION RATE > 60.0 (>39); GLUCOSE, FASTING 129 MG/DL (70-100); NT-PRO BNP 1918 PG/ML (<450); POTASSIUM SERUM 4.9 MEQ/L (3.5-5.1); SODIUM LEVEL 142 MEQ/L (136-145); THYROXINE (T4) 7.3 UG/DL (4.5-12.0); TOTAL PROTEIN 6.6 GM/DL (6.4-8.2)
[2021-12-07] MEDS ORDERED: HOME MED LIST COMPLETE! XX SCH (20:05)
[2021-12-07] MEDS ORDERED: APIXABAN 5 MG TAB (ELIQUIS) PO SCH (21:00)
[2021-12-07] MEDS ORDERED: GABAPENTIN 300 MG CAP PO SCH (21:00)
[2021-12-07] MEDS ORDERED: DOXYCYCLINE HYCLATE 100MG TABLET PO STA (21:08)
[2021-12-07] MEDS ORDERED: NS 1,000 ML IV SCH (21:10)
[2021-12-07] MEDS: MONTELUKAST 10 MG TAB PO SCH (22:52)
[2021-12-07] MEDS: guaiFENesin ER 600 MG TAB PO SCH (22:52)
[2021-12-07] MEDS: METOPROLOL TART 12.5 MG PER 1/2 TAB PO SCH (22:53)
[2021-12-08] VITALS (22 sets, daily range): BP systolic 124–174; BP diastolic 60–82
[2021-12-08] MEDS: NS 1,000 ML IV SCH ×4 (01:40→22:10)
[2021-12-08] MEDS ORDERED: IPRATROPIUM 0.5MG/ALBUTEROL 2.5MG INH SOL UD 3ML (DUONEB) NEB SCH (02:00)
[2021-12-08] MEDS ORDERED: methylPREDNISolone 40MG 1ML VIAL IV SCH (02:00)
[2021-12-08 02:07] LABS: ABG BASE EXCESS 1.2 (-2.0-2.0); ABG HCO3 26.7 MEQ/L (22.0-26.0); ABG O2 SATURATION 99.6 % (95.0-99.0); ABG PARTIAL PRESSURE CO2 46.4 mmHg (35.0-45.0); ABG PARTIAL PRESSURE O2 266.8 mmHg (75.0-100.0); ABG STANDARD HCO3 25.5 MEQ/L (22.0-26.0); ABG TOTAL CO2 28.1 MEQ/L (23.0-31.0); ABG pH (ARTERIAL) 7.378 UNITS (7.350-7.450)
[2021-12-08] MEDS ORDERED: propofoL 1,000 MG in IV 1 EA IV SCH (02:10)
[2021-12-08] MEDS: propofoL 1,000 MG in IV 1 EA IV SCH ×7 (02:15→22:10)
[2021-12-08] MEDS: SYMBICORT 160/4.5MCG INHALER 6GM INH SCH ×3 (02:27→19:24)
[2021-12-08] MEDS ORDERED: [UNRECOGNIZED DRUG - MIXTURE] IV ONE (04:00)
[2021-12-08] MEDS: MORPHINE 2 MG/ML 1ML VIAL (J2270) IV PRN ×3 (04:54→22:16)
[2021-12-08] MEDS: MIDAZOLAM INJ 2MG/2ML VIAL (J2250 PER 1MG) IV PRN ×3 (04:55→17:19)
[2021-12-08 05:36] LABS: BASO % 0.1 % (0.0-1.0); HEMATOCRIT 35.3 % (36.0-47.0); LYMPH # 0.3 10^3/uL (1.5-5.0); MEAN CORPUSCULAR HEMOGLOBIN 26.5 pg (27.0-33.0); MEAN CORPUSCULAR VOLUME 94.4 fl (80.0-96.0); MONO # 0.8 10^3/uL (0.0-0.8); MONO % 6.8 % (2.0-8.0); NEUTROPHILS % 89.6 % (36.0-66.0); PLATELET COUNT, AUTOMATED 295 10^3/uL (150-450); RED BLOOD COUNT 3.74 10^6/uL (4.00-5.40); WHITE BLOOD COUNT 11.2 10^3/uL (4.0-10.0)
[2021-12-08 05:45] LABS: HEMOGLOBIN 9.9 g/dl (12.0-15.5)
[2021-12-08 05:56] LABS: BLOOD UREA NITROGEN 44 MG/DL (7-18); CARBON DIOXIDE LEVEL 29 MEQ/L (21-32); CHLORIDE LEVEL 107 MEQ/L (98-107); CREATININE FOR GFR 0.74 MG/DL (0.55-1.30); GLOMERULAR FILTRATION RATE > 60.0 (>39); GLUCOSE, FASTING 274 MG/DL (70-100); POTASSIUM SERUM 4.9 MEQ/L (3.5-5.1); SODIUM LEVEL 142 MEQ/L (136-145)
[2021-12-08] MEDS: IPRATROPIUM 0.5MG/ALBUTEROL 2.5MG INH SOL UD 3ML (DUONEB) NEB SCH ×5 (07:43→23:44)
[2021-12-08 08:15] LABS: ABG BASE EXCESS 2.5 (-2.0-2.0); ABG HCO3 26.3 MEQ/L (22.0-26.0); ABG O2 SATURATION 97.3 % (95.0-99.0); ABG PARTIAL PRESSURE CO2 37.4 mmHg (35.0-45.0); ABG STANDARD HCO3 26.7 MEQ/L (22.0-26.0); ABG TOTAL CO2 27.5 MEQ/L (23.0-31.0); ABG pH (ARTERIAL) 7.465 UNITS (7.350-7.450)
[2021-12-08] MEDS: guaiFENesin ER 600 MG TAB PO SCH (08:17)
[2021-12-08] MEDS ORDERED: CHLORHEXIDINE GLUCONATE 0.12 % 15ML UDC (PERIDEX ORAL RINSE) MT SCH (09:00)
[2021-12-08] MEDS ORDERED: metFORMIN (GLUCOPHAGE) 500MG TAB PO SCH (09:00)
[2021-12-08] MEDS ORDERED: VENLAFAXINE **XR** 75MG CAPSULE PO SCH (09:00)
[2021-12-08] MEDS: methylPREDNISolone 125MG 2ML VIAL IV SCH ×3 (09:53→20:20)
[2021-12-08] MEDS: ATORVASTATIN 20 MG TAB PO SCH (09:55)
[2021-12-08] MEDS: METOPROLOL TART 12.5 MG PER 1/2 TAB PO SCH ×2 (09:56→20:21)
[2021-12-08] MEDS: CHLORHEXIDINE GLUCONATE 0.12 % 15ML UDC (PERIDEX ORAL RINSE) MT SCH ×2 (09:56→20:20)
[2021-12-08 10:25] LABS: ABG BASE EXCESS 1.4 (-2.0-2.0); ABG HCO3 26.4 MEQ/L (22.0-26.0); ABG O2 SATURATION 97.9 % (95.0-99.0); ABG PARTIAL PRESSURE CO2 43.5 mmHg (35.0-45.0); ABG PARTIAL PRESSURE O2 107.7 mmHg (75.0-100.0); ABG STANDARD HCO3 25.7 MEQ/L (22.0-26.0); ABG TOTAL CO2 27.7 MEQ/L (23.0-31.0); ABG pH (ARTERIAL) 7.401 UNITS (7.350-7.450)
[2021-12-08] MEDS: VENLAFAXINE 37.5 MG TAB NG SCH ×2 (15:04→20:20)
[2021-12-08] MEDS ORDERED: GLUCOSE 4GM CHEW TABLET PO PRN (15:25)
[2021-12-08] MEDS ORDERED: DEXTROSE 50% 50 ML SYRINGE IV PRN (15:25)
[2021-12-08] MEDS ORDERED: GLUCAGON INJ 1MG VIAL SC PRN (15:25)
[2021-12-08] MEDS ORDERED: NS 1,000 ML IV ONE (16:00)
[2021-12-08] MEDS ORDERED: NS 1,000 ML IV SCH (16:20)
[2021-12-08] MEDS ORDERED: cloNIDine HCL 0.1 MG/24 HR PATCH TOP SCH (18:00)
[2021-12-08] MEDS: HumaLOG INSULIN (NovoLOG) PER UNIT SC SCH (18:15)
[2021-12-08] MEDS: PANTOPRAZOLE 40MG VIAL (C9113 PER 1) IV SCH (20:20)
[2021-12-08] MEDS: MONTELUKAST 10 MG TAB PO SCH (20:20)
[2021-12-09] VITALS (43 sets, daily range): BP systolic 102–188; BP diastolic 55–113
[2021-12-09] MEDS: HumaLOG INSULIN (NovoLOG) PER UNIT SC SCH ×5 (00:19→23:53)
[2021-12-09] MEDS ORDERED: hydrALAZINE 20MG/ML 1ML VIAL (J0360 PER 20MG) IV ONE ×2 (00:25→02:25)
[2021-12-09] MEDS: propofoL 1,000 MG in IV 1 EA IV SCH ×8 (00:40→22:51)
[2021-12-09] MEDS: MIDAZOLAM INJ 2MG/2ML VIAL (J2250 PER 1MG) IV PRN ×14 (00:40→22:56)
[2021-12-09] MEDS: methylPREDNISolone 125MG 2ML VIAL IV SCH ×4 (02:04→20:23)
[2021-12-09] MEDS: MORPHINE 2 MG/ML 1ML VIAL (J2270) IV PRN ×6 (02:51→18:22)
[2021-12-09] MEDS: IPRATROPIUM 0.5MG/ALBUTEROL 2.5MG INH SOL UD 3ML (DUONEB) NEB SCH ×5 (04:07→20:14)
[2021-12-09] MEDS ORDERED: diltiaZEM 125 MG in NS 100 ML IV SCH ×3 (04:15→06:50)
[2021-12-09 04:31] LABS: CK-MB VALUE MASS < 1.0 NG/ML (<3.6); CPK CREATINE PHOSPHOKINASE 29 U/L (26-192); MB/CK RELATIVE INDEX 3.45 (< OR =4)
[2021-12-09 05:35] LABS: ABG BASE EXCESS 1.1 (-2.0-2.0); ABG O2 SATURATION 98.4 % (95.0-99.0); ABG PARTIAL PRESSURE CO2 32.1 mmHg (35.0-45.0); ABG PARTIAL PRESSURE O2 113.8 mmHg (75.0-100.0); ABG STANDARD HCO3 25.5 MEQ/L (22.0-26.0); ABG pH (ARTERIAL) 7.492 UNITS (7.350-7.450)
[2021-12-09] MEDS ORDERED: DIGOXIN INJ 0.5 MG/2 ML AMP (J1160) IV STA ×3 (05:35→16:28)
[2021-12-09] MEDS: NS 1,000 ML IV SCH (05:52)
[2021-12-09] MEDS: METOPROLOL 5 MG/5 ML VIAL IV SCH ×7 (07:55→18:25)
[2021-12-09] MEDS: SYMBICORT 160/4.5MCG INHALER 6GM INH SCH ×2 (08:00→20:00)
[2021-12-09] MEDS: PANTOPRAZOLE 40MG VIAL (C9113 PER 1) IV SCH ×2 (08:12→20:23)
[2021-12-09] MEDS: VENLAFAXINE 37.5 MG TAB NG SCH ×2 (08:13→20:24)
[2021-12-09] MEDS: CHLORHEXIDINE GLUCONATE 0.12 % 15ML UDC (PERIDEX ORAL RINSE) MT SCH ×2 (08:13→20:23)
[2021-12-09] MEDS: ATORVASTATIN 20 MG TAB PO SCH (08:14)
[2021-12-09] MEDS: METOPROLOL TART 12.5 MG PER 1/2 TAB PO SCH ×2 (08:20→20:24)
[2021-12-09 10:07] LABS: BASO % 0.1 % (0.0-1.0); HEMATOCRIT 34.7 % (36.0-47.0); LYMPH # 0.3 10^3/uL (1.5-5.0); LYMPH % 1.5 % (24.0-44.0); MEAN CORPUSCULAR HEMOGLOBIN 26.7 pg (27.0-33.0); MEAN CORPUSCULAR HGB CONC 28.8 g/dl (32.0-36.5); MEAN CORPUSCULAR VOLUME 92.5 fl (80.0-96.0); MONO # 1.1 10^3/uL (0.0-0.8); MONO % 6.7 % (2.0-8.0); NEUTROPHILS # 14.5 10^3/uL (1.5-8.5); NEUTROPHILS % 90.1 % (36.0-66.0); PLATELET COUNT, AUTOMATED 357 10^3/uL (150-450); RED BLOOD COUNT 3.75 10^6/uL (4.00-5.40); WHITE BLOOD COUNT 16.2 10^3/uL (4.0-10.0)
[2021-12-09 10:42] LABS: ALBUMIN 2.5 GM/DL (3.2-5.2); ALT/SGPT 29 U/L (12-78); BILIRUBIN,TOTAL 0.4 MG/DL (0.2-1.0); BLOOD UREA NITROGEN 32 MG/DL (7-18); CALCIUM LEVEL 7.3 MG/DL (8.8-10.2); CARBON DIOXIDE LEVEL 28 MEQ/L (21-32); CHLORIDE LEVEL 111 MEQ/L (98-107); CHOLESTEROL LEVEL 146 MG/DL (< 200); CPK CREATINE PHOSPHOKINASE 28 U/L (26-192); CREATININE FOR GFR 0.73 MG/DL (0.55-1.30); GLOMERULAR FILTRATION RATE > 60.0 (>39); GLUCOSE, FASTING 361 MG/DL (70-100); LDH LACTATE DEHYDROGENASE 130 U/L (84-246); POTASSIUM SERUM 3.9 MEQ/L (3.5-5.1); SODIUM LEVEL 144 MEQ/L (136-145); TOTAL PROTEIN 5.2 GM/DL (6.4-8.2); TRIGLYCERIDES LEVEL 154 MG/DL (<150)
[2021-12-09 11:24] LABS: ABG HCO3 26.2 MEQ/L (22.0-26.0); ABG O2 SATURATION 97.4 % (95.0-99.0); ABG PARTIAL PRESSURE CO2 44.5 mmHg (35.0-45.0); ABG STANDARD HCO3 25.3 MEQ/L (22.0-26.0); ABG TOTAL CO2 27.6 MEQ/L (23.0-31.0); ABG pH (ARTERIAL) 7.388 UNITS (7.350-7.450)
[2021-12-09] MEDS: diltiaZEM 125 MG in NS 100 ML IV SCH ×4 (12:25→22:35)
[2021-12-09] MEDS: CLINDAMYCIN 300 MG in IV 1 EA IV SCH ×2 (16:27→23:53)
[2021-12-09] MEDS ORDERED: NS 500 ML IV ONE (16:40)
[2021-12-09] MEDS: MIDODRINE 5 MG TAB PO SCH (16:55)
[2021-12-09 17:28] LABS: MAGNESIUM LEVEL 2.6 MG/DL (1.8-2.4); POTASSIUM SERUM 4.2 MEQ/L (3.5-5.1)
[2021-12-09 17:36] LABS: CK-MB VALUE MASS 1.2 NG/ML (<3.6); MB/CK RELATIVE INDEX 4.14 (< OR =4)
[2021-12-09] MEDS: MONTELUKAST 10 MG TAB PO SCH (20:23)
[2021-12-09] MEDS ORDERED: DIGOXIN INJ 0.5 MG/2 ML AMP (J1160) IV SCH (23:00)
[2021-12-09] MEDS ORDERED: DIGOXIN 0.125 MG TAB PO ONE (23:50)
[2021-12-10] VITALS (41 sets, daily range): BP systolic 104–151; BP diastolic 52–93
[2021-12-10] MEDS: MORPHINE 2 MG/ML 1ML VIAL (J2270) IV PRN (00:03)
[2021-12-10] MEDS: MIDAZOLAM INJ 2MG/2ML VIAL (J2250 PER 1MG) IV PRN ×4 (00:29→10:00)
[2021-12-10] MEDS: IPRATROPIUM 0.5MG/ALBUTEROL 2.5MG INH SOL UD 3ML (DUONEB) NEB SCH ×7 (00:40→23:37)
[2021-12-10] MEDS: methylPREDNISolone 125MG 2ML VIAL IV SCH ×2 (02:00→08:05)
[2021-12-10] MEDS: propofoL 1,000 MG in IV 1 EA IV SCH ×4 (02:01→20:34)
[2021-12-10] MEDS: fentaNYL CITRATE 1,000 MCG in NS 80 ML IV SCH (03:29)
[2021-12-10 05:47] LABS: BASO % 0.1 % (0.0-1.0); HEMATOCRIT 36.1 % (36.0-47.0); LYMPH # 0.3 10^3/uL (1.5-5.0); LYMPH % 1.5 % (24.0-44.0); MEAN CORPUSCULAR HEMOGLOBIN 26.5 pg (27.0-33.0); MEAN CORPUSCULAR HGB CONC 27.7 g/dl (32.0-36.5); MEAN CORPUSCULAR VOLUME 95.5 fl (80.0-96.0); MONO # 1.3 10^3/uL (0.0-0.8); MONO % 6.3 % (2.0-8.0); NEUTROPHILS # 18.5 10^3/uL (1.5-8.5); NEUTROPHILS % 90.5 % (36.0-66.0); PLATELET COUNT, AUTOMATED 342 10^3/uL (150-450); RED BLOOD COUNT 3.78 10^6/uL (4.00-5.40); WHITE BLOOD COUNT 20.4 10^3/uL (4.0-10.0)
[2021-12-10] MEDS: HumaLOG INSULIN (NovoLOG) PER UNIT SC SCH ×3 (06:07→18:06)
[2021-12-10] MEDS: CLINDAMYCIN 300 MG in IV 1 EA IV SCH ×3 (06:07→23:04)
[2021-12-10 06:08] LABS: ABG BASE EXCESS 0.1 (-2.0-2.0); ABG HCO3 24.8 MEQ/L (22.0-26.0); ABG O2 SATURATION 98.2 % (95.0-99.0); ABG PARTIAL PRESSURE CO2 40.4 mmHg (35.0-45.0); ABG PARTIAL PRESSURE O2 106.9 mmHg (75.0-100.0); ABG STANDARD HCO3 24.6 MEQ/L (22.0-26.0); ABG pH (ARTERIAL) 7.406 UNITS (7.350-7.450)
[2021-12-10 06:32] LABS: ALBUMIN 2.4 GM/DL (3.2-5.2); BILIRUBIN,TOTAL 0.2 MG/DL (0.2-1.0); CALCIUM LEVEL 7.3 MG/DL (8.8-10.2); CREATININE FOR GFR 1.11 MG/DL (0.55-1.30); DIGOXIN LEVEL 1.4 NG/ML (0.5-2.0); GLOMERULAR FILTRATION RATE 50.5 (>39); PHOSPHORUS LEVEL 2.7 MG/DL (2.5-4.9); POTASSIUM SERUM 4.5 MEQ/L (3.5-5.1); TOTAL PROTEIN 5.3 GM/DL (6.4-8.2)
[2021-12-10 06:47] LABS: C REACTIVE PROTEIN QUANTITATIV 4.09 MG/DL (0.00-0.30)
[2021-12-10 06:57] LABS: CK-MB VALUE MASS 1.4 NG/ML (<3.6); MB/CK RELATIVE INDEX 4.38 (< OR =4)
[2021-12-10 06:59] LABS: ERYTHROCYTE SEDIMENTATION RATE 16 mm/hr (0-30)
[2021-12-10] MEDS ORDERED: DIGOXIN INJ 0.5 MG/2 ML AMP (J1160) IV STA (07:23)
[2021-12-10] MEDS: MIDODRINE 5 MG TAB PO SCH ×2 (08:05→12:05)
[2021-12-10] MEDS: SYMBICORT 160/4.5MCG INHALER 6GM INH SCH ×2 (08:38→20:20)
[2021-12-10] MEDS: PANTOPRAZOLE 40MG VIAL (C9113 PER 1) IV SCH ×2 (09:18→20:16)
[2021-12-10] MEDS: LEVEMIR (INSULIN DETEMIR) 1 UNITS/0.01ML SC SCH ×2 (09:18→20:18)
[2021-12-10] MEDS: CHLORHEXIDINE GLUCONATE 0.12 % 15ML UDC (PERIDEX ORAL RINSE) MT SCH ×2 (09:19→20:16)
[2021-12-10] MEDS: METOPROLOL TART 12.5 MG PER 1/2 TAB PO SCH (09:19)
[2021-12-10] MEDS: ATORVASTATIN 20 MG TAB PO SCH (09:19)
[2021-12-10] MEDS: VENLAFAXINE 37.5 MG TAB NG SCH ×2 (09:19→20:16)
[2021-12-10] MEDS: METOPROLOL TART 25 MG TABLET PEG SCH ×2 (12:06→18:07)
[2021-12-10] MEDS: MUPIROCIN 2% OINT 22 GM TUBE TOP SCH ×2 (15:16→20:17)
[2021-12-10] MEDS: MIRALAX *UNIT DOSE* 17GM PACKET PO SCH (16:38)
[2021-12-10] MEDS: SENNA 8.6 MG TAB (SENOKOT) PO SCH ×2 (16:39→20:17)
[2021-12-10] MEDS: SODIUM CHLORIDE NASAL 0.65% SPRAY BTL (OCEAN) SCH ×2 (16:40→20:17)
[2021-12-10] MEDS: MONTELUKAST 10 MG TAB PO SCH (20:17)
[2021-12-10] MEDS: methylPREDNISolone 40MG 1ML VIAL IV SCH (20:17)
[2021-12-11] VITALS (25 sets, daily range): BP systolic 100–202; BP diastolic 50–84; O2SAT 97
[2021-12-11] MEDS: propofoL 1,000 MG in IV 1 EA IV SCH ×4 (02:47→22:04)
[2021-12-11] MEDS: fentaNYL CITRATE 1,000 MCG in NS 80 ML IV SCH (03:13)
[2021-12-11] MEDS: MIDAZOLAM INJ 2MG/2ML VIAL (J2250 PER 1MG) IV PRN ×2 (03:34→11:30)
[2021-12-11] MEDS: IPRATROPIUM 0.5MG/ALBUTEROL 2.5MG INH SOL UD 3ML (DUONEB) NEB SCH ×6 (03:49→23:33)
[2021-12-11 05:43] LABS: BASO % 0.1 % (0.0-1.0); HEMATOCRIT 32.9 % (36.0-47.0); HEMOGLOBIN 9.3 g/dl (12.0-15.5); LYMPH # 0.3 10^3/uL (1.5-5.0); LYMPH % 1.5 % (24.0-44.0); MEAN CORPUSCULAR HEMOGLOBIN 26.7 pg (27.0-33.0); MEAN CORPUSCULAR HGB CONC 28.3 g/dl (32.0-36.5); MEAN CORPUSCULAR VOLUME 94.5 fl (80.0-96.0); MONO # 1.5 10^3/uL (0.0-0.8); MONO % 7.6 % (2.0-8.0); NEUTROPHILS % 88.3 % (36.0-66.0); PLATELET COUNT, AUTOMATED 273 10^3/uL (150-450); RED BLOOD COUNT 3.48 10^6/uL (4.00-5.40); WHITE BLOOD COUNT 20.4 10^3/uL (4.0-10.0)
[2021-12-11 05:54] LABS: ABG BASE EXCESS 2.7 (-2.0-2.0); ABG HCO3 27.5 MEQ/L (22.0-26.0); ABG O2 SATURATION 96.8 % (95.0-99.0); ABG PARTIAL PRESSURE O2 86.3 mmHg (75.0-100.0); ABG STANDARD HCO3 26.9 MEQ/L (22.0-26.0); ABG TOTAL CO2 28.8 MEQ/L (23.0-31.0); ABG pH (ARTERIAL) 7.423 UNITS (7.350-7.450)
[2021-12-11] MEDS ORDERED: CLINDAMYCIN 600 MG/50 ML PREMIX BAG As Ordered ONE (05:58)
[2021-12-11] MEDS: HumaLOG INSULIN (NovoLOG) PER UNIT SC SCH ×4 (06:12→18:32)
[2021-12-11] MEDS: METOPROLOL TART 25 MG TABLET PEG SCH ×4 (06:12→18:06)
[2021-12-11 06:16] LABS: ALBUMIN 2.2 GM/DL (3.2-5.2); ALT/SGPT 20 U/L (12-78); BILIRUBIN,TOTAL 0.2 MG/DL (0.2-1.0); BLOOD UREA NITROGEN 62 MG/DL (7-18); CALCIUM LEVEL 7.3 MG/DL (8.8-10.2); CARBON DIOXIDE LEVEL 32 MEQ/L (21-32); CHLORIDE LEVEL 116 MEQ/L (98-107); CHOLESTEROL LEVEL 129 MG/DL (< 200); CPK CREATINE PHOSPHOKINASE 34 U/L (26-192); CREATININE FOR GFR 0.76 MG/DL (0.55-1.30); DIGOXIN LEVEL 1.4 NG/ML (0.5-2.0); GLOMERULAR FILTRATION RATE > 60.0 (>39); GLUCOSE, FASTING 340 MG/DL (70-100); LDH LACTATE DEHYDROGENASE 137 U/L (84-246); PHOSPHORUS LEVEL 2.8 MG/DL (2.5-4.9); SODIUM LEVEL 149 MEQ/L (136-145); TOTAL PROTEIN 5.2 GM/DL (6.4-8.2); TRIGLYCERIDES LEVEL 80 MG/DL (<150)
[2021-12-11] MEDS: CLINDAMYCIN 300 MG in IV 1 EA IV SCH ×3 (06:31→22:13)
[2021-12-11] MEDS: SYMBICORT 160/4.5MCG INHALER 6GM INH SCH ×2 (07:12→19:56)
[2021-12-11] MEDS: methylPREDNISolone 40MG 1ML VIAL IV SCH (08:42)
[2021-12-11] MEDS: CHLORHEXIDINE GLUCONATE 0.12 % 15ML UDC (PERIDEX ORAL RINSE) MT SCH ×2 (08:42→20:09)
[2021-12-11] MEDS: VENLAFAXINE 37.5 MG TAB NG SCH ×2 (08:42→20:09)
[2021-12-11] MEDS: SENNA 8.6 MG TAB (SENOKOT) PO SCH ×2 (08:42→20:09)
[2021-12-11] MEDS: ATORVASTATIN 20 MG TAB PO SCH (08:42)
[2021-12-11] MEDS: PANTOPRAZOLE 40MG VIAL (C9113 PER 1) IV SCH ×2 (08:43→20:09)
[2021-12-11] MEDS: MIRALAX *UNIT DOSE* 17GM PACKET PO SCH (08:43)
[2021-12-11] MEDS: SODIUM CHLORIDE NASAL 0.65% SPRAY BTL (OCEAN) SCH ×4 (08:46→20:10)
[2021-12-11] MEDS: MUPIROCIN 2% OINT 22 GM TUBE TOP SCH ×2 (08:46→20:10)
[2021-12-11] MEDS: LEVEMIR (INSULIN DETEMIR) 1 UNITS/0.01ML SC SCH ×2 (08:46→20:09)
[2021-12-11] MEDS ORDERED: LEVEMIR (INSULIN DETEMIR) 1 UNITS/0.01ML SC ONE (10:00)
[2021-12-11] MEDS: HEPARIN SOD (PORCINE) 5000UNITS/ML 1ML VIAL/SYRINGE SQ SCH ×2 (14:15→22:13)
[2021-12-11] MEDS: MONTELUKAST 10 MG TAB PO SCH (20:09)
[2021-12-11] MEDS ORDERED: COLCHICINE 0.6 MG TABLET PO STA (22:06)
[2021-12-12] VITALS (24 sets, daily range): BP systolic 102–163; BP diastolic 51–79
[2021-12-12] MEDS: METOPROLOL TART 25 MG TABLET PEG SCH ×4 (00:13→17:06)
[2021-12-12] MEDS: HumaLOG INSULIN (NovoLOG) PER UNIT SC SCH ×4 (00:14→18:08)
[2021-12-12] MEDS: fentaNYL CITRATE 1,000 MCG in NS 80 ML IV SCH (02:55)
[2021-12-12] MEDS: IPRATROPIUM 0.5MG/ALBUTEROL 2.5MG INH SOL UD 3ML (DUONEB) NEB SCH ×5 (03:16→19:43)
[2021-12-12 05:27] LABS: ABG BASE EXCESS 6.9 (-2.0-2.0); ABG HCO3 31.8 MEQ/L (22.0-26.0); ABG O2 SATURATION 97.6 % (95.0-99.0); ABG PARTIAL PRESSURE CO2 46.9 mmHg (35.0-45.0); ABG PARTIAL PRESSURE O2 100.2 mmHg (75.0-100.0); ABG STANDARD HCO3 30.7 MEQ/L (22.0-26.0); ABG TOTAL CO2 33.2 MEQ/L (23.0-31.0); ABG pH (ARTERIAL) 7.449 UNITS (7.350-7.450)
[2021-12-12] MEDS: propofoL 1,000 MG in IV 1 EA IV SCH (05:37)
[2021-12-12] MEDS ORDERED: LACTULOSE 20 GM/30 ML SYRUP UD PO SCH (06:00)
[2021-12-12] MEDS: HEPARIN SOD (PORCINE) 5000UNITS/ML 1ML VIAL/SYRINGE SQ SCH ×3 (06:26→22:26)
[2021-12-12] MEDS: CLINDAMYCIN 300 MG in IV 1 EA IV SCH ×3 (06:26→22:26)
[2021-12-12] MEDS: SYMBICORT 160/4.5MCG INHALER 6GM INH SCH ×2 (07:04→19:43)
[2021-12-12 07:17] LABS: BASO % 0.2 % (0.0-1.0); EOS % 0.1 % (0.0-3.0); HEMOGLOBIN 9.8 g/dl (12.0-15.5); LYMPH # 0.7 10^3/uL (1.5-5.0); LYMPH % 3.6 % (24.0-44.0); MEAN CORPUSCULAR HEMOGLOBIN 26.3 pg (27.0-33.0); MEAN CORPUSCULAR VOLUME 94.1 fl (80.0-96.0); MONO % 8.3 % (2.0-8.0); NEUTROPHILS # 15.7 10^3/uL (1.5-8.5); NEUTROPHILS % 84.3 % (36.0-66.0); PLATELET COUNT, AUTOMATED 260 10^3/uL (150-450); RED BLOOD COUNT 3.72 10^6/uL (4.00-5.40); WHITE BLOOD COUNT 18.7 10^3/uL (4.0-10.0)
[2021-12-12 07:53] LABS: BLOOD UREA NITROGEN 59 MG/DL (7-18); CARBON DIOXIDE LEVEL 31 MEQ/L (21-32); CHLORIDE LEVEL 112 MEQ/L (98-107); CREATININE FOR GFR 0.65 MG/DL (0.55-1.30); GLOMERULAR FILTRATION RATE > 60.0 (>39); GLUCOSE, FASTING 247 MG/DL (70-100); POTASSIUM SERUM 4.8 MEQ/L (3.5-5.1); SODIUM LEVEL 148 MEQ/L (136-145)
[2021-12-12 07:54] LABS: ALBUMIN 2.2 GM/DL (3.2-5.2); ALT/SGPT 34 U/L (12-78); BILIRUBIN,TOTAL 0.2 MG/DL (0.2-1.0); CALCIUM LEVEL 7.5 MG/DL (8.8-10.2); CHOLESTEROL LEVEL 142 MG/DL (< 200); CPK CREATINE PHOSPHOKINASE 44 U/L (26-192); DIGOXIN LEVEL 1.1 NG/ML (0.5-2.0); LDH LACTATE DEHYDROGENASE 202 U/L (84-246); PHOSPHORUS LEVEL 3.1 MG/DL (2.5-4.9); TOTAL PROTEIN 5.6 GM/DL (6.4-8.2); TRIGLYCERIDES LEVEL 121 MG/DL (<150); URIC ACID 1.5 MG/DL (2.6-6.0)
[2021-12-12 07:58] LABS: MONO # 1.6 10^3/uL (0.0-0.8)
[2021-12-12] MEDS: ATORVASTATIN 20 MG TAB PO SCH (08:12)
[2021-12-12] MEDS: CHLORHEXIDINE GLUCONATE 0.12 % 15ML UDC (PERIDEX ORAL RINSE) MT SCH ×2 (08:12→20:09)
[2021-12-12] MEDS: VENLAFAXINE 37.5 MG TAB NG SCH ×2 (08:12→20:08)
[2021-12-12] MEDS: predniSONE 20 MG TAB FT SCH (08:12)
[2021-12-12] MEDS: MUPIROCIN 2% OINT 22 GM TUBE TOP SCH ×2 (08:13→20:08)
[2021-12-12] MEDS: SODIUM CHLORIDE NASAL 0.65% SPRAY BTL (OCEAN) SCH ×4 (08:13→20:08)
[2021-12-12] MEDS: SENNA 8.6 MG TAB (SENOKOT) PO SCH ×2 (08:13→20:06)
[2021-12-12] MEDS: MIRALAX *UNIT DOSE* 17GM PACKET PO SCH (08:13)
[2021-12-12] MEDS: PANTOPRAZOLE 40MG VIAL (C9113 PER 1) IV SCH ×2 (08:13→20:08)
[2021-12-12] MEDS: LEVEMIR (INSULIN DETEMIR) 1 UNITS/0.01ML SC SCH ×2 (08:31→20:08)
[2021-12-12] MEDS: dexmedeTOMidine 200 MCG in IV 1 EA IV SCH ×2 (10:42→17:11)
[2021-12-12] MEDS ORDERED: FUROSEMIDE 40MG/4ML VIAL (J1940) IV SCH (13:50)
[2021-12-12] MEDS: LACTULOSE 20 GM/30 ML SYRUP UD NG SCH ×2 (14:46→22:26)
[2021-12-12] MEDS: FUROSEMIDE 40MG/4ML VIAL (J1940) IV SCH (14:46)
[2021-12-12] MEDS: MIDAZOLAM INJ 2MG/2ML VIAL (J2250 PER 1MG) IV PRN (14:50)
[2021-12-12] MEDS: MONTELUKAST 10 MG TAB PO SCH (20:08)
[2021-12-13] VITALS (47 sets, daily range): BP systolic 90–195; BP diastolic 53–137
[2021-12-13] MEDS: HumaLOG INSULIN (NovoLOG) PER UNIT SC SCH ×3 (00:03→12:26)
[2021-12-13] MEDS: METOPROLOL TART 25 MG TABLET PEG SCH ×2 (00:04→05:53)
[2021-12-13] MEDS: IPRATROPIUM 0.5MG/ALBUTEROL 2.5MG INH SOL UD 3ML (DUONEB) NEB SCH ×5 (00:18→15:19)
[2021-12-13] MEDS: MIDAZOLAM INJ 2MG/2ML VIAL (J2250 PER 1MG) IV PRN (02:13)
[2021-12-13] MEDS: dexmedeTOMidine 200 MCG in IV 1 EA IV SCH ×2 (03:03→12:22)
[2021-12-13] MEDS: fentaNYL CITRATE 1,000 MCG in NS 80 ML IV SCH (03:11)
[2021-12-13] MEDS: LACTULOSE 20 GM/30 ML SYRUP UD NG SCH ×2 (05:51→14:02)
[2021-12-13] MEDS: HEPARIN SOD (PORCINE) 5000UNITS/ML 1ML VIAL/SYRINGE SQ SCH ×2 (05:52→13:48)
[2021-12-13 05:56] LABS: ABG BASE EXCESS 9.7 (-2.0-2.0); ABG HCO3 33.9 MEQ/L (22.0-26.0); ABG O2 SATURATION 98.3 % (95.0-99.0); ABG PARTIAL PRESSURE CO2 44.3 mmHg (35.0-45.0); ABG PARTIAL PRESSURE O2 114.9 mmHg (75.0-100.0); ABG STANDARD HCO3 33.5 MEQ/L (22.0-26.0); ABG TOTAL CO2 35.3 MEQ/L (23.0-31.0); ABG pH (ARTERIAL) 7.502 UNITS (7.350-7.450)
[2021-12-13] MEDS: CLINDAMYCIN 300 MG in IV 1 EA IV SCH ×2 (06:02→15:03)
[2021-12-13 06:11] LABS: BASO # 0.1 10^3/uL (0.0-0.2); BASO % 0.3 % (0.0-1.0); EOS # 0.1 10^3/uL (0.0-0.5); EOS % 0.4 % (0.0-3.0); HEMATOCRIT 37.9 % (36.0-47.0); HEMOGLOBIN 10.7 g/dl (12.0-15.5); LYMPH # 0.8 10^3/uL (1.5-5.0); LYMPH % 4.2 % (24.0-44.0); MEAN CORPUSCULAR HEMOGLOBIN 26.3 pg (27.0-33.0); MEAN CORPUSCULAR HGB CONC 28.2 g/dl (32.0-36.5); MEAN CORPUSCULAR VOLUME 93.1 fl (80.0-96.0); MONO % 9.1 % (2.0-8.0); NEUTROPHILS % 82.9 % (36.0-66.0); PLATELET COUNT, AUTOMATED 237 10^3/uL (150-450); RED BLOOD COUNT 4.07 10^6/uL (4.00-5.40); WHITE BLOOD COUNT 19.2 10^3/uL (4.0-10.0)
[2021-12-13 06:12] LABS: MONO # 1.8 10^3/uL (0.0-0.8)
[2021-12-13 06:40] LABS: ALBUMIN 2.2 GM/DL (3.2-5.2); ALT/SGPT 30 U/L (12-78); BILIRUBIN,TOTAL 0.3 MG/DL (0.2-1.0); BLOOD UREA NITROGEN 54 MG/DL (7-18); CARBON DIOXIDE LEVEL 34 MEQ/L (21-32); CHLORIDE LEVEL 105 MEQ/L (98-107); CHOLESTEROL LEVEL 152 MG/DL (< 200); CPK CREATINE PHOSPHOKINASE 47 U/L (26-192); CREATININE FOR GFR 0.69 MG/DL (0.55-1.30); GLOMERULAR FILTRATION RATE > 60.0 (>39); GLUCOSE, FASTING 209 MG/DL (70-100); LDH LACTATE DEHYDROGENASE 208 U/L (84-246); PHOSPHORUS LEVEL 3.7 MG/DL (2.5-4.9); POTASSIUM SERUM 4.5 MEQ/L (3.5-5.1); SODIUM LEVEL 143 MEQ/L (136-145); TRIGLYCERIDES LEVEL 109 MG/DL (<150)
[2021-12-13] MEDS: SYMBICORT 160/4.5MCG INHALER 6GM INH SCH (07:38)
[2021-12-13] MEDS ORDERED: METOPROLOL TART 25 MG TABLET FT ONE (07:55)
[2021-12-13] MEDS ORDERED: MIDODRINE 5 MG TAB FT SCH (08:00)
[2021-12-13] MEDS: ATORVASTATIN 20 MG TAB PO SCH (08:09)
[2021-12-13] MEDS: SENNA 8.6 MG TAB (SENOKOT) PO SCH (08:09)
[2021-12-13] MEDS: MIRALAX *UNIT DOSE* 17GM PACKET PO SCH (08:09)
[2021-12-13] MEDS: VENLAFAXINE 37.5 MG TAB NG SCH (08:10)
[2021-12-13] MEDS: CHLORHEXIDINE GLUCONATE 0.12 % 15ML UDC (PERIDEX ORAL RINSE) MT SCH (08:10)
[2021-12-13] MEDS: predniSONE 20 MG TAB FT SCH (08:10)
[2021-12-13] MEDS: PANTOPRAZOLE 40MG VIAL (C9113 PER 1) IV SCH (08:11)
[2021-12-13] MEDS: SODIUM CHLORIDE NASAL 0.65% SPRAY BTL (OCEAN) SCH (08:11)
[2021-12-13] MEDS: FUROSEMIDE 40MG/4ML VIAL (J1940) IV SCH (08:11)
[2021-12-13] MEDS: MUPIROCIN 2% OINT 22 GM TUBE TOP SCH (08:12)
[2021-12-13] MEDS: LEVEMIR (INSULIN DETEMIR) 1 UNITS/0.01ML SC SCH (08:13)
[2021-12-13] MEDS ORDERED: METOPROLOL 5 MG/5 ML VIAL IV PRN (08:30)
[2021-12-13] MEDS ORDERED: DIGOXIN INJ 0.5 MG/2 ML AMP (J1160) IV SCH (09:00)
[2021-12-13] MEDS: diltiaZEM 125 MG in NS 100 ML IV SCH (11:29)
[2021-12-13] MEDS ORDERED: ACETAMINOPHEN TAB 650MG DOSE (2X325MG) PO PRN (12:40)
[2021-12-13] MEDS ORDERED: AMIODARONE HCL 360 MG in IV 1 EA IV SCH ×2 (13:50→20:00)
[2021-12-13] MEDS ORDERED: AMIODARONE HCL 150 MG in IV 1 EA IV ONE (13:50)
[2021-12-13] MEDS ORDERED: METOPROLOL 5 MG/5 ML VIAL IV SCH (14:00)
[2021-12-13] MEDS ORDERED: IBUPROFEN 100 MG/5 ML SUSP UDC DYE FREE PO PRN (16:25)
[2021-12-13] MEDS ORDERED: FLUID PLACE HOLDER IV SCH (16:40)
[2021-12-13] MEDS ORDERED: VANCOMYCIN HCL IV SCH (16:40)
[2021-12-13] MEDS ORDERED: LR 1,000 ML IV ONE (17:25)
[2021-12-13] MEDS ORDERED: MIDAZOLAM INJ 2MG/2ML VIAL (J2250 PER 1MG) IV PRN (17:50)
[2021-12-13] MEDS ORDERED: CEFEPIME HCL 2 GM in D5W MINI-BAG PLUS 50 ML IV SCH (18:00)
[2021-12-13] MEDS: MORPHINE 2 MG/ML 1ML VIAL (J2270) IV PRN ×8 (18:26→23:37)
[2021-12-13] MEDS ORDERED: VANCOMYCIN HCL 750 MG, VIAL MATE ADAPTER 1 EACH in NS 250 ML IV ONE (20:00)
[2021-12-13] MEDS ORDERED: VANCOMYCIN HCL 500 MG in D5W MINI-BAG PLUS 100 ML IV ONE (21:00)
[2021-12-14] MEDS ORDERED: VANCOMYCIN HCL 1,000 MG, VIAL MATE ADAPTER 1 EACH in NS 250 ML IV SCH (04:00)
== END 2021-12-13 23:44 | disposition expired | DRG 207 ==
LOC: M ED 17:51 → EDBD 17:51 → M PCU 21:08 → M ED 12-08 03:50 → M PCU 12-08 03:50
PROVIDERS: ADMIT Internal Medicine; ATTEND General Practice
PROC: 5A1955Z Respiratory Ventilation, Greater than 96 Consecutive Hours (ICD-10-PCS; principal; 2021-12-07)
PROC: 0BH17EZ Insertion of Endotracheal Airway into Trachea, Via Natural or Artificial Opening (ICD-10-PCS; 2021-12-07)
PROC: 2Y41X5Z Packing of Nasal Region using Packing Material (ICD-10-PCS; 2021-12-07)
DX: J96.21 Acute and chronic respiratory failure with hypoxia (principal); J44.1 Chronic obstructive pulmonary disease with (acute) exacerbation; I48.20 Chronic atrial fibrillation, unspecified; D62 Acute posthemorrhagic anemia; D68.32 Hemorrhagic disorder due to extrinsic circulating anticoagulants; E87.0 Hyperosmolality and hypernatremia; I48.92 Unspecified atrial flutter; J90 Pleural effusion, not elsewhere classified; J96.22 Acute and chronic respiratory failure with hypercapnia; B34.8 Other viral infections of unspecified site; R04.0 Epistaxis; E74.39 Other disorders of intestinal carbohydrate absorption; I10 Essential (primary) hypertension; Z51.5 Encounter for palliative care; Z66 Do not resuscitate; I36.1 Nonrheumatic tricuspid (valve) insufficiency; D72.829 Elevated white blood cell count, unspecified; R73.9 Hyperglycemia, unspecified; M40.209 Unspecified kyphosis, site unspecified; E87.70 Fluid overload, unspecified; J06.9 Acute upper respiratory infection, unspecified; I27.20 Pulmonary hypertension, unspecified; Z79.84 Long term (current) use of oral hypoglycemic drugs; Z79.899 Other long term (current) drug therapy; T38.0X5A Adverse effect of glucocorticoids and synthetic analogues, initial encounter; Z88.0 Allergy status to penicillin; Z88.1 Allergy status to other antibiotic agents; Z88.8 Allergy status to other drugs, medicaments and biological substances; Z91.018 Allergy to other foods; Z87.891 Personal history of nicotine dependence; Z79.52 Long term (current) use of systemic steroids; Z99.81 Dependence on supplemental oxygen; Z79.01 Long term (current) use of anticoagulants